=== PATIENT | male | born 1970 | race Caucasian/White ===

== ENCOUNTER 2019-02-01 07:06 | Outpatient (CLI) | payer OTHER ==
[~2019-02-01] VITALS: Ht 177.8 cm; Wt 82.6 kg
[2019-02-01] MEDS ORDERED: LISI-552 PO (09:40)
[2019-02-01] MEDS ORDERED: LISI10TA2 PO (10:11)
[2019-02-01] MEDS ORDERED: ANTIDEPRESSANT (10:11)
[2019-02-01] MEDS ORDERED: CHOLESTEROL MED (10:11)
[2019-02-01] MEDS ORDERED: TRAZ-189 PO (12:22)
[2019-02-01] MEDS ORDERED: LOVA10TA PO (12:22)
[2019-02-01] MEDS ORDERED: ESCI20TA PO (12:22)
== END 2019-02-01 10:23 | disposition home or self-care (01) ==
LOC: PREOP 07:06
PROVIDERS: ATTEND Surgery
DX: Z01.818 Encounter for other preprocedural examination (principal)

== ENCOUNTER 2019-02-04 06:00 | Day surgery (SDC) | payer OTHER ==
[~2019-02-04] VITALS: Ht 177.8 cm; Wt 82.6 kg
[~2019-02-04 06:00] MED LIST: ANTIDEPRESSANT; CHOLESTEROL MED; ESCI20TA PO; LISI-552 PO; LISI10TA2 PO; LOVA10TA PO; TRAZ-189 PO
--- OUTSIDE RECORDS SUMMARY | 2019-02-04 06:02 | XMS REPORT ---
Author Author KAIT PRICE Organization [facility] Address [address] [place] [address] Care Team Providers Care Manager Property Name Role Phone KAIT PRICE Unavailable PROBLEMS Type Condition ICD9-CM Code [id number] Code Onset Dates Condition Status SNOMED Code Problem Hypertension I10 Active 72640692 Problem Dysthymia F34.1 Active 84892772 ALLERGIES No Known Allergies ENCOUNTERS Encounter Location Date Diagnosis [facility] [id number] [place] [phone] Sep, 2018 Hypertension I10 and Dysthymia F34.1 [facility] [address] [phone] Sep, Hypertension I10 and Dysthymia F34.1 [facility] [address] [phone] Dec, Dental examination Z01.20 [facility] [address] [phone] Dec, Dental examination Z01.20 [facility] [id number] [place] [address] [phone] Oct, Dental examination Z01.20 [facility] [address] [place] [address] [phone] Aug, Dental examination Z01.20 [facility] [id number] [place] [address] [phone] Aug, Dental caries K02.9 [facility] [address] [phone] Jul, Dental examination Z01.20 [facility] [address] [phone] Mar, Dental examination Z01.20 [facility] [address] [id number] [place] [phone] Dec, Dental examination Z01.20 [facility] [address] [id number] [place] [phone] Sep, Dental examination Z01.20 [facility] [address] [id number] [place] [phone] Sep, Dental examination Z01.20 [facility] [address] [id number] [place] [phone] Sep, Dental examination Z01.20 [facility] [id number] [place] [address] [phone] Jun, Dental examination Z01.20 [facility] [address] [id number] [place] [phone] May, Encounter for dental examination Z01.20 [facility] [address] [id number] [place] [phone] Apr, Dental examination Z01.20 [facility] [address] [id number] [place] [phone] Mar, Encounter for dental examination Z01.20 [facility] [address] [id number] [place] [phone] Mar, Dental caries K02.9 [facility] [address] [id number] [place] [phone] Mar, Dental examination Z01.20 [facility] [address] [id number] [place] [address] Jan, [facility] [address] [id number] [place] [address] 2546 Dec, Dental examination Z01.20 [facility] [address] [id number] [place] [phone] Apr, Dental examination V72.2 [facility] [address] [id number] [place] [phone] February, Dental examination V72.2 IMMUNIZATIONS No Known Immunizations SOCIAL HISTORY Never Assessed REASON FOR VISIT High blood pressure-david,RMA, pt wants to get his blood pressure meds restarted PLAN OF CARE Activity Details Follow Up 1 Year Reason: VITAL SIGNS Weight 192.9 lbs 2018-10-09 Temperature 97.2 degrees Fahrenheit 2018-10-09 Heart Rate 79 bpm 2018-10-09 Respiratory Rate 18 2018-10-09 Oximetry on room air:95 % 2018-10-09 Blood pressure systolic 150 mmHg 2018-10-09 Blood pressure diastolic 90 mmHg 2018-10-09 MEDICATIONS Medication Instructions Dosage Frequency Start Date End Date Duration Status Escitalopram Oxalate 20 MG Orally Once a day 1 tablet 24h Active Lisinopril 10 MG by oral route Once a day 1 tablet 24h Active Trazodone HCl 50 MG Orally Once a day 1 tablet at bedtime as needed 24h Active RESULTS No Results PROCEDURES No Known procedures INSTRUCTIONS MEDICATIONS ADMINISTERED No Known Medications MEDICAL (GENERAL) HISTORY Type Description Date Medical History chloresterol Medical History high blood pressure Surgical History No Surgical history information
--- OUTSIDE RECORDS SUMMARY | 2019-02-04 06:02 | XMS REPORT ---
Author Author MADDIE BENITEZ Stephen [facility] Address Unknown Care Team Providers Care Labor Relations Manager Name Role Phone MADDIE BENITEZ Unavailable PROBLEMS Unknown Problems ALLERGIES No Known Allergies ENCOUNTERS Encounter Location Date Diagnosis [facility] [id number] [place] [address] [phone] Dec, Dental examination Z01.20 [facility] [address] [place] [address] [phone] Dec, Dental examination Z01.20 [facility] [id number] [place] [address] [phone] Oct, Dental examination Z01.20 [facility] [address] [id number] [place] [address] [phone] Aug, Dental examination Z01.20 [facility] [address] [id number] [place] [address] [phone] Aug, Dental caries K02.9 [facility] [address] [id number] [place] [address] [phone] Jul, Dental examination Z01.20 [facility] [address] [id number] [place] [address] [phone] Mar, Dental examination Z01.20 [facility] [address] [id number] [place] [address] [phone] Dec, Dental examination Z01.20 [facility] [address] [id number] [place] [address] [phone] Sep, Dental examination Z01.20 [facility] [address] [id number] [place] [address] [phone] Sep, Dental examination Z01.20 [facility] [address] [id number] [place] [address] [phone] Sep, Dental examination Z01.20 [facility] [address] [id number] [phone] Jun, Dental examination Z01.20 [facility] [address] [id number], [place] [phone] May, Encounter for dental examination Z01.20 [facility] [address] [id number], [place] [phone] Apr, Dental examination Z01.20 [facility] [address] [id number] [place] [address] [phone] Mar, Encounter for dental examination Z01.20 [facility] [address] [id number] [place] [address] [phone] Mar, Dental caries K02.9 [facility] [id number] [place] [address] [phone] Mar, Dental examination Z01.20 [facility] [id number] [place] [phone] Jan, [facility] [address] [id number] [place] [address] [phone]- [phone] Dec, Dental examination Z01.20 [facility] [address] [id number], [place] [phone] Apr, Dental examination V72.2 [facility] [address] [id number] [phone] February, Dental examination V72.2 IMMUNIZATIONS No Known Immunizations SOCIAL HISTORY Never Assessed REASON FOR VISIT CROWN SEAT PLAN OF CARE Activity Details Follow Up prn Reason:FILLINGS VITAL SIGNS MEDICATIONS Medication Instructions Dosage Frequency Start Date End Date Duration Status Xanax 1 MG Orally Twice a day 1 tablet 12h Not-Taking Gemfibrozil 600 MG Orally Twice a day 1 tablet 12h Active Lexapro Active Lisinopril Active Clindamycin HCl 150 MG Orally every 6 hrs 2 capsules 6h 7 days Not- Taking RESULTS No Results PROCEDURES Procedure Date Ordered Result Body Site Dental no charge January 20, 2018 INSTRUCTIONS MEDICATIONS ADMINISTERED No Known Medications MEDICAL (GENERAL) HISTORY Type Description Date Medical History chloresterol Medical History high blood pressure
--- OUTSIDE RECORDS SUMMARY | 2019-02-04 06:02 | XMS REPORT ---
Author Author KAIT PRICE Organization [facility] Address [address] [place] [address] Care Team Providers Care Student Activities Director Name Role Phone KAIT PRICE Unavailable PROBLEMS Type Condition ICD9-CM Code IWJ31-MP Code Onset Dates Condition Status SNOMED Code Problem Hypertension I10 Active 87295405 Problem Dysthymia F34.1 Active 35496101 ALLERGIES No Information ENCOUNTERS Encounter Location Date Diagnosis [facility] [id number] [place] [phone] Sep, Hypertension I10 and Dysthymia F34.1 [facility] [address] [phone] Sep, Hypertension I10 and Dysthymia F34.1 [facility] [address] [phone] Dec, Dental examination Z01.20 [facility] [address] [phone] Dec, Dental examination Z01.20 [facility] [id number] [place] [address] [phone] Oct, Dental examination Z01.20 [facility] [address] [phone] Aug, Dental examination Z01.20 [facility] [address] [id number] Aug, Dental caries K02.9 [facility] [address] [phone] Jul, Dental examination Z01.20 [facility] [address] [id number] Mar, Dental examination Z01.20 [facility] [address] [id number], [place] [phone] Dec, Dental examination Z01.20 [facility] [address] [id number], [place] [phone] Sep, Dental examination Z01.20 [facility] [address] [id number], [place] [phone] Sep, Dental examination Z01.20 [facility] [address] [id number], [place] [phone] Sep, Dental examination Z01.20 [facility] [address] [id number] [place] [address] [phone] Jun, Dental examination Z01.20 [facility] [address] [id number], [place] [phone] May, Encounter for dental examination Z01.20 [facility] [address] [id number], [place] [phone] Apr, Dental examination Z01.20 [facility] [address] [id number], [place] [phone] Mar, Encounter for dental examination Z01.20 [facility] [address] [id number], [place] [phone] Mar, Dental caries K02.9 [facility] [address] [id number], [place] [phone] Mar, Dental examination Z01.20 [facility] [address] [id number], [place] [address] Jan, [facility] [address] [id number], [place] [address]- [address] Dec, Dental examination Z01.20 [facility] [address] [id number], [place] [phone] Apr, Dental examination V72.2 [facility] [address] [id number], [place] [phone] February, Dental examination V72.2 IMMUNIZATIONS No Known Immunizations SOCIAL HISTORY Never Assessed REASON FOR VISIT Lab (walk-in) PLAN OF CARE Activity Details Pending Test LIPID PANEL Pending Test CMP VITAL SIGNS MEDICATIONS Unknown Medications RESULTS No Results PROCEDURES Procedure Date Ordered Result Body Site COMPREHEN METABOLIC PANEL Oct 13, 2018 LIPID PANEL Oct 13, 2018 VENIPUNCT, ROUTINE* Oct 13, 2018 INSTRUCTIONS MEDICATIONS ADMINISTERED No Known Medications MEDICAL (GENERAL) HISTORY Type Description Date Medical History chloresterol Medical History high blood pressure Surgical History No Surgical history information
--- OUTSIDE RECORDS SUMMARY | 2019-02-04 06:03 | XMS REPORT ---
Author Author MADDIE BENITEZ Stephen [facility] Address Unknown Care Team Providers Care Senior Stack Engineer Name Role Phone MADDIE BENITEZ Unavailable PROBLEMS Unknown Problems ALLERGIES No Known Allergies ENCOUNTERS Encounter Location Date Diagnosis [facility] [address] [id number] [place] [address] [phone] Dec, Dental examination Z01.20 [facility] [address] [place] [address] [phone] Dec, Dental examination Z01.20 [facility] [address] [id number] [place] [address] [phone] Oct, Dental examination Z01.20 [facility] [address] [id number] [place] [address] [phone] Aug, Dental examination Z01.20 [facility] [address] [id number] [place] [address] [id number] Aug, Dental caries K02.9 [facility] [address] [id number] [place] [address] [phone] Jul, Dental examination Z01.20 [facility] [address] [id number] [place] [address] [phone] Mar, Dental examination Z01.20 [facility] [address] [id number] [place] [address] [phone] Dec, Dental examination Z01.20 [facility] [address] [id number] [place] [address] [phone] Sep, Dental examination Z01.20 [facility] [address] [id number] [place] [address] [phone] Sep, Dental examination Z01.20 [facility] [address] [id number] [place] [address] [id number] Sep, Dental examination Z01.20 [facility] [address] [id number][place] [phone] Jun, Dental examination Z01.20 [facility] [address] [id number], [place] [phone] May, Encounter for dental examination Z01.20 [facility] [address] [id number], [place] [phone] Apr, Dental examination Z01.20 [facility] [address] [id number] [place] [address] [phone] Mar, Encounter for dental examination Z01.20 [facility] [address] [id number] [place] [address] [phone] Mar, Dental caries K02.9 [facility] [id number] [place] [address] [phone] Mar, Dental examination Z01.20 [facility] [address] [place] [phone] Jan, [facility] [address] [place] [address] [phone] Dec, Dental examination Z01.20 [facility] [address] [id number], [place] [phone] Apr, Dental examination V72.2 [facility] [address] [id number] [phone] February, Dental examination V72.2 IMMUNIZATIONS No Known Immunizations SOCIAL HISTORY Never Assessed REASON FOR VISIT 1 WK TE PLAN OF CARE Activity Details Follow Up prn Reason:Hoahaoism # 19 VITAL SIGNS Blood pressure systolic 139 mmHg 2017-08-27 Blood pressure diastolic 85 mmHg 2017-08-27 MEDICATIONS Medication Instructions Dosage Frequency Start Date End Date Duration Status Gemfibrozil 600 MG Orally Twice a day 1 tablet 12h Active Lisinopril Active Lexapro Active RESULTS No Results PROCEDURES Procedure Date Ordered Result Body Site EXTRAC ERUPTED TOOTH/EXPOSED ROOT Aug 27, 2017 INSTRUCTIONS MEDICATIONS ADMINISTERED No Known Medications MEDICAL (GENERAL) HISTORY Type Description Date Medical History chloresterol Medical History high blood pressure
--- OUTSIDE RECORDS SUMMARY | 2019-02-04 06:03 | XMS REPORT ---
Author Author MADDIE BENITEZ [facility] Address Unknown Care Team Providers Care Salmon Gillnet Vessel Operator Name Role Phone MADDIE BENITEZ Unavailable PROBLEMS Type Condition ICD9-CM Code VKP62-QI Code Onset Dates Condition Status SNOMED Code Problem Encounter for dental examination Z01.20 Active 810590306 ALLERGIES Substance Reaction Event Type Date Status N.K.D.A. Unknown Non Drug Allergy Sep, Unknown SOCIAL HISTORY No smoking Hx information available PLAN OF CARE Activity Details Follow Up prn Reason:hygiene VITAL SIGNS Heart Rate 89 bpm 2016-10-16 Blood pressure systolic 164 mmHg 2016-10-16 Blood pressure diastolic 112 mmHg 2016-10-16 MEDICATIONS Unknown Medications RESULTS No Results PROCEDURES Procedure Date Ordered Related Diagnosis Body Site LTD ORAL EVALUATION - PROBLEM FOCUS Oct 16, 2016 INTRAORL-PERIAPICAL 1 FILM [id number] Oct 16, 2016 IMMUNIZATIONS No Known Immunizations
--- OUTSIDE RECORDS SUMMARY | 2019-02-04 06:03 | XMS REPORT ---
Author Author PARAMJIT WOOD [facility] Address [address] [place] [address] Care Team Providers Care Calendering Supervisor Name Role Phone ISRAEL PARAMJIT Unavailable PROBLEMS Type Condition ICD9-CM Code HFG13-EF Code Onset Dates Condition Status SNOMED Code Problem Encounter for dental examination Z01.20 Active 043365064 Assessment Encounter for dental examination Z01.20 May, Active 302945766 ALLERGIES Substance Reaction Event Type Date Status N.K.D.A. Unknown Non Drug Allergy May, Unknown SOCIAL HISTORY No smoking Hx information available PLAN OF CARE VITAL SIGNS Heart Rate 116 bpm 2016-06-24 Blood pressure systolic 120 mmHg 2016-06-24 Blood pressure diastolic 78 mmHg 2016-06-24 MEDICATIONS Medication Instructions Dosage Frequency Start Date End Date Duration Status Gemfibrozil 600 MG Orally Twice a day 1 tablet 12h Active Xanax 1 MG Orally Twice a day 1 tablet 12h Active RESULTS No Results PROCEDURES Procedure Date Ordered Related Diagnosis Body Site Periodontal scaling and root Jun 24, 2016 Periodontal scaling and root Jun 24, 2016 IMMUNIZATIONS No Known Immunizations
--- OUTSIDE RECORDS SUMMARY | 2019-02-04 06:03 | XMS REPORT ---
Author Author MADDIE BENITEZ Stephen [facility] Address Unknown Care Team Providers Care Market Risk Analyst Name Role Phone MADDIE BENITEZ Unavailable PROBLEMS Unknown Problems ALLERGIES No Known Allergies ENCOUNTERS Encounter Location Date Diagnosis [facility] [id number] [place] [address] [phone] Dec, Dental examination Z01.20 [facility] [address] [place] [address] [phone] Dec, Dental examination Z01.20 [facility] [address] [id number] [place] [address] [phone] Oct, Dental examination Z01.20 [facility] [address] [id number] [place] [address] [phone] Aug, Dental examination Z01.20 [facility] [address] [id number] [place] [address] [phone] Aug, Dental caries K02.9 [facility] [address] [id number] [place] [address] [id number] Jul, Dental examination Z01.20 [facility] [address] [id number] [place] [address] [phone] Mar, Dental examination Z01.20 [facility] [address] [id number] [place] [address] [phone] Dec, Dental examination Z01.20 [facility] [address] [id number] [place] [address] [phone] Sep, Dental examination Z01.20 [facility] [address] [id number] [place] [address] [phone] Sep, Dental examination Z01.20 [facility] [address] [id number] [place] [address] [phone] Sep, Dental examination Z01.20 [facility] [address] [id number], [place] [phone] Jun, Dental examination Z01.20 [facility] [address] [id number], [place] [phone] May, Encounter for dental examination Z01.20 [facility] [address] [id number], [place] [phone] Apr, Dental examination Z01.20 [facility] [address] [id number], [place] [phone] Mar, Encounter for dental examination Z01.20 [facility] [address] [id number] [place] [address] [phone] Mar, Dental caries K02.9 [facility] [address] [id number] [place] [address] [phone] Mar, Dental examination Z01.20 [facility] [address] [id number] [place] [address] [phone] Jan, [facility] [address] [id number] [place] [address] [phone] Dec, Dental examination Z01.20 [facility] [address] [id number], [place] [phone] Apr, Dental examination V72.2 [facility] [address] [id number], [place] [phone] February, Dental examination V72.2 IMMUNIZATIONS No Known Immunizations SOCIAL HISTORY Never Assessed REASON FOR VISIT crown prep PLAN OF CARE Activity Details Follow Up 3 Weeks Reason:Seat E-Max crown # 9 VITAL SIGNS Blood pressure systolic 136 mmHg 2017-12-25 Blood pressure diastolic 96 mmHg 2017-12-25 MEDICATIONS Medication Instructions Dosage Frequency Start Date End Date Duration Status Clindamycin HCl 150 MG Orally every 6 hrs 2 capsules 6h 7 days Not- Taking Gemfibrozil 600 MG Orally Twice a day 1 tablet 12h Active Lexapro Active Lisinopril Active Xanax 1 MG Orally Twice a day 1 tablet 12h Not-Taking RESULTS No Results PROCEDURES Procedure Date Ordered Result Body Site CROWN - PORCELAIN/CERAMIC SUBSTRATE December 25, 2017 Billing Notes on claim December 25, 2017 INSTRUCTIONS MEDICATIONS ADMINISTERED No Known Medications MEDICAL (GENERAL) HISTORY Type Description Date Medical History chloresterol Medical History high blood pressure
--- OUTSIDE RECORDS SUMMARY | 2019-02-04 06:03 | XMS REPORT ---
Author Author MADDIE BENITEZ Stephen [facility] Address Unknown Care Team Providers Care Black Top Raker Name Role Phone MADDIE BENITEZ Unavailable PROBLEMS Unknown Problems ALLERGIES No Known Allergies ENCOUNTERS Encounter Location Date Diagnosis [facility] [id number] [place] [address] [phone] Dec, Dental examination Z01.20 [facility] [address] [place] [address] [phone] Dec, Dental examination Z01.20 [facility] [address] [id number] [place] [address] [phone] Oct, Dental examination Z01.20 [facility] [address] [id number] [place] [address] [phone] Aug, Dental examination Z01.20 [facility] [address] [id number] [place] [address] [phone] Aug, Dental caries K02.9 [facility] [address] [id number] [place] [address] [phone] Jul, Dental examination Z01.20 [facility] [id number] [place] [address] [phone] Mar, Dental examination Z01.20 [facility] [id number] [place] [address] [phone] Dec, Dental examination Z01.20 [facility] [address] [id number] [place] [address] [phone] Sep, Dental examination Z01.20 [facility] [address] [id number] [place] [address] [phone] Sep, Dental examination Z01.20 [facility] [address] [id number] [place] [address] [phone] Sep, Dental examination Z01.20 [facility] [address] [id number][place] [phone] Jun, Dental examination Z01.20 [facility] [address] [id number], [place] [phone] May, Encounter for dental examination Z01.20 [facility] [address] [id number][place] [phone] Apr, Dental examination Z01.20 [facility] [id number] [place] [address] [phone] Mar, Encounter for dental examination Z01.20 [facility] [address] [id number] [place] [address] [phone] Mar, Dental caries K02.9 [facility] [id number] [place] [address] [phone] Mar, Dental examination Z01.20 [facility] [id number] [place] [phone] Jan, [facility] [address] [id number] [place] [phone] Dec, Dental examination Z01.20 [facility] [address] [id number], [place] [phone] Apr, Dental examination V72.2 [facility] [address] [id number] [phone] February, Dental examination V72.2 IMMUNIZATIONS No Known Immunizations SOCIAL HISTORY Never Assessed REASON FOR VISIT olivia PLAN OF CARE Activity Details Follow Up 1 Week Reason:45 min TE #19 VITAL SIGNS Blood pressure systolic 147 mmHg 2017-08-19 Blood pressure diastolic 101 mmHg 2017-08-19 MEDICATIONS Medication Instructions Dosage Frequency Start Date End Date Duration Status Gemfibrozil 600 MG Orally Twice a day 1 tablet 12h Active RESULTS No Results PROCEDURES Procedure Date Ordered Result Body Site LTD ORAL EVALUATION - PROBLEM FOCUS Aug 19, 2017 INTRAORL-PERIAPICAL 1 FILM 39376 Aug 19, 2017 BITEWING - SINGLE FILM Aug 19, 2017 INSTRUCTIONS MEDICATIONS ADMINISTERED No Known Medications MEDICAL (GENERAL) HISTORY Type Description Date Medical History chloresterol Medical History high blood pressure
--- OUTSIDE RECORDS SUMMARY | 2019-02-04 06:03 | XMS REPORT ---
Author Author MADDIE BENITEZ [facility] Address Unknown Care Team Providers Care Crown Wheel Assembler Name Role Phone EMMANUEL MADDIE Unavailable PROBLEMS Type Condition ICD9-CM Code VTZ48-IP Code Onset Dates Condition Status SNOMED Code Problem Encounter for dental examination Z01.20 Active 044847490 ALLERGIES Substance Reaction Event Type Date Status N.K.D.A. Unknown Non Drug Allergy Sep, Unknown SOCIAL HISTORY No smoking Hx information available PLAN OF CARE Activity Details Follow Up prn Reason:prophy VITAL SIGNS Blood pressure systolic 121 mmHg 2016-10-24 Blood pressure diastolic 76 mmHg 2016-10-24 MEDICATIONS Medication Instructions Dosage Frequency Start Date End Date Duration Status Gemfibrozil 600 MG Orally Twice a day 1 tablet 12h Active Xanax 1 MG Orally Twice a day 1 tablet 12h Active Clindamycin HCl 150 MG Orally every 6 hrs 2 capsules 6h 7 days Active RESULTS No Results PROCEDURES Procedure Date Ordered Related Diagnosis Body Site INTRAORL-PERIAPICAL 1 FILM 69338 Oct 24, 2016 BITEWING - SINGLE FILM Oct 24, 2016 IMMUNIZATIONS No Known Immunizations
--- OUTSIDE RECORDS SUMMARY | 2019-02-04 06:03 | XMS REPORT ---
Author ROMULO Willis [employer] Address Unknown Phone Unavailable Care Team Providers Care Valuation Consultant Name Role Phone ROMULO BRAUN CP Unavailable Allergies, Adverse Reactions, Alerts Substance Reaction Event Type N.K.D.A. Info Not Available Non Drug Allergy Problems Problem Type Condition Code Onset Dates Condition Status Assessment Dental examination Z01.20 Active Medications Medication Code System Code Instructions Start Date End Date Status Dosage Gemfibrozil [facility] [address]-26 600 MG Orally Twice a day 1 tablet Amoxicillin [facility] [address]-92 500 MG Orally Four times a day January 22, 2016 January 29, 2016 1 capsule Xanax [facility] [address]-19 1 MG Orally Twice a day 1 tablet Procedures Procedure Coding System Code Date INTRAORL-PERIAPICAL 1 FILM 09601 CPT-4 D0220 January 22, 2016 Billing Notes on claim CPT-4 EC109 January 22, 2016 LTD ORAL EVALUATION - PROBLEM FOCUS CPT-4 D0140 January 22, 2016 Vital Signs Date/Time: January 22, 2016 Blood Pressure Diastolic 96 mmHg Blood Pressure Systolic 136 mmHg Results No Known Results Summary Purpose [employer] Submission
--- OUTSIDE RECORDS SUMMARY | 2019-02-04 06:03 | XMS REPORT ---
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 Info Not Available Non Drug Allergy Problems Problem Type Condition Code Onset Dates Condition Status Assessment Dental examination Z01.20 Active Problem Encounter for dental examination Z01.20 Active Medications Medication Code System Code Instructions Start Date End Date Status Dosage Xanax [facility] [address]-83 1 MG Orally Twice a day 1 tablet Gemfibrozil [facility] [address]-40 600 MG Orally Twice a day 1 tablet Procedures Procedure Coding System Code Date RESIN COMPOS - 1 SURFACE POSTERIOR CPT-4 D2391 Jul 26, 2016 Vital Signs Date/Time: Jul 26, 2016 Blood Pressure Diastolic 93 mmHg Blood Pressure Systolic 133 mmHg Results No Known Results Summary Purpose [employer] Submission
--- OUTSIDE RECORDS SUMMARY | 2019-02-04 06:03 | XMS REPORT ---
Author Author SHERYL HOUSE Organization [facility] Address [address] [place] [address] Care Team Providers Care Timber Selector Name Role Phone LACY, SHERYL Unavailable PROBLEMS Unknown Problems ALLERGIES No Information ENCOUNTERS Encounter Location Date Diagnosis [facility] [id number] [place] [address] [phone] Dec, Dental examination Z01.20 [facility] [address] [id number] [place] [address] [phone] Dec, Dental examination Z01.20 [facility] [address] [id number] [place] [address] [phone] Oct, Dental examination Z01.20 [facility] [id number] [place] [address] [phone] Aug, Dental examination Z01.20 [facility] [id number] [place] [address] [phone] Aug, Dental caries K02.9 [facility] [id number] [place] [address] [phone] Jul, Dental examination Z01.20 [facility] [address] [id number] [place] [address] [phone] Mar, Dental examination Z01.20 [facility] [address] [id number] [place] [address] [phone] Dec, Dental examination Z01.20 [facility] [id number] [place] [address] [phone] Sep, Dental examination Z01.20 [facility] [address] [id number] [place] [address] [phone] Sep, Dental examination Z01.20 [facility] [address] [id number] [phone] Sep, Dental examination Z01.20 [facility] [address] [id number][place] [phone] Jun, Dental examination Z01.20 [facility] [address] [id number][place] [phone] May, Encounter for dental examination Z01.20 [facility] [address] [id number][place] [phone] Apr, Dental examination Z01.20 [facility] [address] [id number][place] [phone] Mar, Encounter for dental examination Z01.20 [facility] [address] [id number], [place] [phone] Mar, Dental caries K02.9 [facility] [address] [id number][place] [phone] Mar, Dental examination Z01.20 [facility] [address] [address] Jan, [facility] [address] [id number] [address] Dec, Dental examination Z01.20 [facility] [address] [id number], [place] [phone] Apr, Dental examination V72.2 [facility] [address] [id number], [place] [phone] February, Dental examination V72.2 IMMUNIZATIONS No Known Immunizations SOCIAL HISTORY Never Assessed REASON FOR VISIT Refill request PLAN OF CARE VITAL SIGNS MEDICATIONS No Known Medications RESULTS No Results PROCEDURES No Known procedures INSTRUCTIONS MEDICATIONS ADMINISTERED No Known Medications MEDICAL (GENERAL) HISTORY Type Description Date Medical History chloresterol Medical History high blood pressure
--- OUTSIDE RECORDS SUMMARY | 2019-02-04 06:03 | XMS REPORT ---
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
--- OUTSIDE RECORDS SUMMARY | 2019-02-04 06:03 | XMS REPORT ---
Author Author MADDIE BENITEZ [facility] Address Unknown Care Team Providers Care Striker Out Name Role Phone JARONDAGO MADDIE Unavailable PROBLEMS Type Condition ICD9-CM Code WLU11-[place] Code Onset Dates Condition Status SNOMED Code Problem Encounter for dental examination Z01.20 Active [id number] ALLERGIES Substance Reaction Event Type Date Status N.K.D.A. Unknown Non Drug Allergy Sep, Unknown SOCIAL HISTORY No smoking Hx information available PLAN OF CARE Activity Details Follow Up 1 Week Reason:re-eval #2 VITAL SIGNS Blood pressure systolic 144 mmHg 2016-10-08 Blood pressure diastolic 99 mmHg 2016-10-08 MEDICATIONS Medication Instructions Dosage Frequency Start Date End Date Duration Status Clindamycin HCl 150 MG Orally every 6 hrs 2 capsules 6h 7 days Active Xanax 1 MG Orally Twice a day 1 tablet 12h Active Gemfibrozil 600 MG Orally Twice a day 1 tablet 12h Active RESULTS No Results PROCEDURES Procedure Date Ordered Related Diagnosis Body Site LTD ORAL EVALUATION - PROBLEM FOCUS Oct 08, 2016 INTRAORL-PERIAPICAL 1 FILM 29637 Oct 08, 2016 IMMUNIZATIONS No Known Immunizations
--- OUTSIDE RECORDS SUMMARY | 2019-02-04 06:03 | XMS REPORT ---
Author Author MADDIE BENITEZ Stephen [facility] Address Unknown Care Team Providers Care Singe Machine Operator Name Role Phone MADDIE BENITEZ Unavailable PROBLEMS Unknown Problems ALLERGIES No Known Allergies ENCOUNTERS Encounter Location Date Diagnosis [facility] [id number] [place] [address] [phone] Dec, Dental examination Z01.20 [facility] [address] [place] [address] [phone] Dec, Dental examination Z01.20 [facility] [address] [id number] [place] [address] [phone] Oct, Dental examination Z01.20 [facility] [address] [id number] [place] [address] [phone] Aug, Dental examination Z01.20 [facility] [address] [id number] [place] [address] [phone] Aug, Dental caries K02.9 [facility] [address] [id number] [place] [address] [phone] Jul, Dental examination Z01.20 [facility] [address] [id number] [place] [address] [phone] Mar, Dental examination Z01.20 [facility] [address] [id number] [place] [address] [phone] Dec, Dental examination Z01.20 [facility] [address] [id number] [place] [address] [phone] Sep, Dental examination Z01.20 [facility] [address] [id number] [place] [address] [phone] Sep, Dental examination Z01.20 [facility] [address] [id number] [place] [address] [phone] Sep, Dental examination Z01.20 [facility] [address] [id number] [phone] Jun, Dental examination Z01.20 [facility] [address] [id number], [place] [phone] May, Encounter for dental examination Z01.20 [facility] [address] [id number], [place] [phone] Apr, Dental examination Z01.20 [facility] [address] [id number] [place] [address] [phone] Mar, Encounter for dental examination Z01.20 [facility] [address] [id number] [place] [address] [phone] Mar, Dental caries K02.9 [facility] [address] [id number] [place] [address] [phone] Mar, Dental examination Z01.20 [facility] [id number] [place] [phone] Jan, [facility] [address] [id number] [place] [address] [phone] Dec, Dental examination Z01.20 [facility] [address] [id number], [place] [phone] Apr, Dental examination V72.2 [facility] [address] [id number], [place] [phone] February, Dental examination V72.2 IMMUNIZATIONS No Known Immunizations SOCIAL HISTORY Never Assessed REASON FOR VISIT [place] PLAN OF CARE VITAL SIGNS Blood pressure systolic 123 mmHg 2017-09-23 Blood pressure diastolic 92 mmHg 2017-09-23 MEDICATIONS Medication Instructions Dosage Frequency Start Date [...] Site LTD ORAL EVALUATION - PROBLEM FOCUS Sep 23, 2017 INTRAORL-PERIAPICAL 1 FILM 47762 Sep 23, 2017 INSTRUCTIONS MEDICATIONS ADMINISTERED No Known Medications MEDICAL (GENERAL) HISTORY Type Description Date Medical History chloresterol Medical History high blood pressure
--- OUTSIDE RECORDS SUMMARY | 2019-02-04 06:04 | XMS REPORT ---
Author Author PARAMJIT WOOD Organization [facility] Address [address] [place] [address] Care Team Providers Care Crusher Tender Name Role Phone PARAMJIT WOOD Unavailable PROBLEMS Unknown Problems ALLERGIES No Information ENCOUNTERS Encounter Location Date Diagnosis [facility] [id number] [place] [address] [phone] Dec, Dental examination Z01.20 [facility] [address] [id number] [place] [address] [phone] Dec, Dental examination Z01.20 [facility] [address] [id number] [place] [address] [phone] Oct, Dental examination Z01.20 [facility] [address] [id number] [place] [address] [phone] Aug, Dental examination Z01.20 [facility] [address] [id number] [place] [address] [phone] Aug, Dental caries K02.9 [facility] [address] [id number] [place] [address] [phone] Jul, Dental examination Z01.20 [facility] [address] [id number] [place] [address] [phone] Mar, Dental examination Z01.20 [facility] [address] [id number] [place] [address] [phone] Dec, Dental examination Z01.20 [facility] [address] [id number] [place] [address] [id number] Sep, Dental examination Z01.20 [facility] [id number] [place] [address] [phone] Sep, Dental examination Z01.20 [facility] [address] [id number], [place] [phone] Sep, Dental examination Z01.20 [facility] [address] [id number], [place] [phone] Jun, Dental examination Z01.20 [facility] [address] [id number], [place] [phone] May, Encounter for dental examination Z01.20 [facility] [address] [id number], [place] [phone] Apr, Dental examination Z01.20 [facility] [id number] [place] [address] [id number] Mar, Encounter for dental examination Z01.20 [facility] [address] [id number], [place] [phone] Mar, Dental caries K02.9 [facility] [address] [id number], [place] [phone] Mar, Dental examination Z01.20 [facility] [address] [id number], [place] [address] Jan, [facility] [address] [id number] [place] [phone] Dec, Dental examination Z01.20 [facility] [address] [id number], [place] [phone] Apr, Dental examination V72.2 [facility] [address] [id number], [place] [phone] February, Dental examination V72.2 IMMUNIZATIONS No Known Immunizations SOCIAL HISTORY Never Assessed REASON FOR VISIT 4 month recall PLAN OF CARE VITAL SIGNS MEDICATIONS No Known Medications RESULTS No Results PROCEDURES Procedure Date Ordered Result Body Site Billing Notes on claim April 25, 2017 INSTRUCTIONS MEDICATIONS ADMINISTERED No Known Medications MEDICAL (GENERAL) HISTORY Type Description Date Medical History chloresterol Medical History high blood pressure
[2019-02-04 06:15] VITALS: BP 151/98
[2019-02-04] MEDS ORDERED: LACTATED RINGERS 1,000 ML IV PRN (06:42)
[2019-02-04] MEDS ORDERED: ceFAZolin INJECTION 1,000 MG in WATER (STERILE) FOR INJECTION 10 ML IV ONE (06:45)
[2019-02-04] MEDS ORDERED: proPOfol 200 MG/20 ML (DIPRIVAN) VIAL IV ONE (06:56)
[2019-02-04] MEDS ORDERED: ONDANSETRON 4 MG/2 ML (SDV) Z0FRAN ONE (06:56)
[2019-02-04] MEDS ORDERED: DEXAMETHASONE 10 MG/ML (DECADRON) 1 ML VIAL ONE (06:56)
[2019-02-04] MEDS ORDERED: LIDOCAINE PF 2% 5 ML (XYLOCAINE) VIAL ONE (06:56)
[2019-02-04] MEDS ORDERED: MIDAZOLAM 2 MG/2 ML (VERSED) VIAL ONE (06:57)
[2019-02-04] MEDS ORDERED: SEVOFLURANE (ULTANE) 15 ML INHAL SOLN ONE ×2 (06:57→08:11)
[2019-02-04] MEDS ORDERED: fentaNYL INJECTION 100 MCG/2 ML AMP ONE (06:57)
[2019-02-04] MEDS ORDERED: CATHETER FLUSH 10 ML SYR IV PRN (07:00)
[2019-02-04] MEDS ORDERED: LIDOCAINE/EPI 1%-1:100,000 (XYLOCAINE) 20ML ONE (07:26)
[2019-02-04] MEDS ORDERED: BUPIVACAINE 0.5% 30 ML (SENSORCAINE) VIAL ONE (07:26)
--- NOTE | 2019-02-04 07:37 | Progress Note-Pre Operative ---
Pre-Operative Progress Note H&P Reviewed The H&P was reviewed, patient examined and no changes noted. Date Seen by Provider: Feb 04, 2019 Time Seen by Provider: 07:30 Date H&P Reviewed: Feb 04, 2019 Time H&P Reviewed: 07:30 Pre-Operative Diagnosis: skin lesion right posterior neck MELVA VIRGEN DO Feb 04, 2019 07:37
--- NOTE | 2019-02-04 08:17 | Progress Note-Post Operative ---
Post-Operative Progess Note Surgeon (s)/Coffee Supervisor (s) Surgeon MELVA VIRGEN DO Coffee Supervisor: NA Pre-Operative Diagnosis skin lesion right posterior neck Post-Operative Diagnosis same Procedure & Operative Findings Date of Procedure 02/04/19 Procedure Performed/Findings excision lesion neck 2.6x5cm Anesthesia Type gen Estimated Blood Loss Estimated blood loss (mL): min Specimens/Packing Specimens Removed lesion neck MELVA VIRGEN DO Feb 04, 2019 08:17
--- NOTE | 2019-02-04 08:19 | Discharge Inst-Simple/Standard ---
Discharge Inst-Standard Patient Instructions/Follow Up Plan of Care/Instructions/FU: 12-14 days Jennifer Activity as Tolerated: Yes Discharge Diet: Regular Diet Other Inst to Patient Follow up Appt: Make appointment for 1 week. Instructions: No strenuous activity. May shower in 24 hours, no tub bath or soaking. Use incentive spirometer at home as directed. No Smoking Skin/Wound Care: May remove bandages in 24 hours. Keep area clean and dry. Symptoms to Report: Appetite Changes, Extremity Discoloration, Numbness/Tingling, Swelling Increased , Bleeding Excessive, Eyesight Changes, Pain Increased, Urine Color Change, Constipation(Persistent), Fever over 101 degree F, Pain/Pressure in chest, Urinating Difficulty, Cough Up/Vomit Blood, Heart Beat Irreg/Pounding, Pain/ Pressure in jaw, Vaginal Bleeding Increase, Cramps in feet or legs, Lightheadedness, Pain/Pressure in shoulder, Diarrhea(Persistent), Memory Changes Suddenly, Questions/Concerns, Weight gain consecutive days, Dizziness/ Fainting, Nausea/Vomiting, Shortness of Breath, Weight gain over 2 pounds If questions or concerns contact your physician Or seek help at emergency department. MELVA VIRGEN DO Feb 04, 2019 08:19
[2019-02-04] MEDS ORDERED: HYDROmorphone 2 MG/ML VIAL (DILAUDID) IV ONE (08:30)
[2019-02-04] MEDS ORDERED: ONDANSETRON 4 MG/2 ML (SDV) Z0FRAN IVP PRN (08:30)
[2019-02-04 09:20] VITALS: BP 142/94
[2019-02-04 09:50] VITALS: BP 152/91
[2019-02-04 10:00] VITALS: BP 152/91
--- NOTE | 2019-02-04 12:56 | Anesthesia-General Post-Op ---
General Patient Condition Mental Status/LOC: Same as Preop Cardiovascular: Satisfactory Nausea/Vomiting: Absent Respiratory: Satisfactory Pain: Controlled Complications: Absent Post Op Complications Complications None Follow Up Care/Instructions Patient Instructions None needed. Anesthesia/Patient Condition Patient Condition Patient is doing well, no complaints, stable vital signs, no apparent adverse anesthesia problems. No complications reported per nursing. NAVDEEP CROFT CRNA Feb 04, 2019 12:56
--- NOTE | 2019-02-05 06:24 | OPERATIVE REPORT ---
DATE OF SERVICE: 02/04/2019 PREOPERATIVE DIAGNOSIS: Lesion, right posterior neck. POSTOPERATIVE DIAGNOSIS: Lesion, right posterior neck. PROCEDURE: Excision lesion 2.6 x 5 cm. SURGEON: Melva Rodriguez DO. ANESTHESIA: General. ESTIMATED BLOOD LOSS: Minimal. COMPLICATIONS: None. INDICATIONS: The patient is a 48-year-old male with a lesion on the right posterior neck. It has continued to increase in size. He wishes to have it removed. He understands risks and benefits and wished to proceed. Consent was signed in the chart. DESCRIPTION OF PROCEDURE: The patient was taken to the operating suite, placed in left lateral recumbent position. Timeout was performed. Local anesthetic was infiltrated around the neck. An elliptical incision measuring 2.6 x 5 cm was made around the lesion and skin and subcutaneous tissue was removed. Once removed, specimen was labeled short suture superior and long suture posterior. Hemostasis was then achieved. The skin was then closed using a 3-0 Prolene in a simple running fashion. The patient tolerated procedure well without complications. He was taken to recovery room in stable condition. Job ID: [id number] DocumentID: [id number] Dictated Date: 02/04/2019 20:58:03 Animated Cartoons Painter Date: 02/05/2019 05:52:34 Dictated By: MELVA RODRIGUEZ DO
== END 2019-02-04 10:30 | disposition home or self-care (01) ==
LOC: SDC 06:00
PROVIDERS: ATTEND Surgery
DX: C44.41 Basal cell carcinoma of skin of scalp and neck (principal); I10 Essential (primary) hypertension; E78.5 Hyperlipidemia, unspecified; F41.9 Anxiety disorder, unspecified; F32.9 Major depressive disorder, single episode, unspecified; Z79.899 Other long term (current) drug therapy
CPT/HCPCS: 87081; 88305

== ENCOUNTER 2019-04-13 05:37 | Outpatient (CLI) | payer OTHER ==
[~2019-04-13] VITALS: Ht 177.8 cm; Wt 82.6 kg
[~2019-04-13 05:37] MED LIST changes: -TRAZ-189 PO; +TRAZ-222 PO
== END 2019-04-13 11:46 | disposition home or self-care (01) ==
LOC: PREOP 05:37
PROVIDERS: ATTEND Surgery
DX: Z01.818 Encounter for other preprocedural examination (principal)

== ENCOUNTER 2019-04-20 07:05 | Day surgery (SDC) | payer OTHER ==
[~2019-04-20] VITALS: Ht 177.8 cm; Wt 82.6 kg
[2019-04-20] MEDS ORDERED: LACTATED RINGERS 1,000 ML IV STA (07:08)
[2019-04-20] MEDS ORDERED: proPOfol 200 MG/20 ML (DIPRIVAN) VIAL IV ONE ×2 (07:19→08:37)
[2019-04-20] MEDS ORDERED: MIDAZOLAM 2 MG/2 ML (VERSED) VIAL ONE (07:20)
[2019-04-20 07:32] VITALS: BP 140/94
--- NOTE | 2019-04-20 08:13 | Progress Note-Pre Operative ---
Pre-Operative Progress Note H&P Reviewed The H&P was reviewed, patient examined and no changes noted. Date Seen by Provider: Apr 20, 2019 Time Seen by Provider: 08:12 Date H&P Reviewed: Apr 20, 2019 Time H&P Reviewed: 08:13 Pre-Operative Diagnosis: screening colonoscopy MELVA VIRGEN DO Apr 20, 2019 08:13
[2019-04-20] MEDS ORDERED: fentaNYL INJECTION 100 MCG/2 ML AMP ONE (08:20)
[2019-04-20 08:45] VITALS: BP 161/99
--- NOTE | 2019-04-20 08:45 | Progress Note-Post Operative ---
Post-Operative Progess Note Surgeon (s)/Site Technician (s) Surgeon MELVA VIRGEN DO Site Technician: na Pre-Operative Diagnosis screening colonoscopy Post-Operative Diagnosis colon polyps, minimal diverticulosis Procedure & Operative Findings Date of Procedure 04/20/19 Procedure Performed/Findings colonoscopy c hot bx polypectomy x3 Anesthesia Type per mda Estimated Blood Loss Estimated blood loss (mL): none Specimens/Packing Specimens Removed transverse colon polyps, sigmoid polyp MELVA VIRGEN DO Apr 20, 2019 08:45
--- NOTE | 2019-04-20 08:46 | Discharge Inst-Simple/Standard ---
Discharge Inst-Standard Patient Instructions/Follow Up Plan of Care/Instructions/FU: 2 weeks Jennifer Activity as Tolerated: Yes Discharge Diet: Regular Diet (high fiber) MELVA VIRGEN DO Apr 20, 2019 08:46
[2019-04-20] MEDS ORDERED: ONDANSETRON 4 MG/2 ML (SDV) Z0FRAN IVP ONE (08:50)
[2019-04-20] MEDS ORDERED: ONDANSETRON 4 MG/2 ML (SDV) Z0FRAN ONE (08:57)
--- NOTE | 2019-04-20 09:00 | NUR ---
C/O NAUSEA AND BLOATED FEELING WITH ABDOMINAL PAIN. UNABLE TO PASS FLATUS AT THIS TIME. ZOFRAN 4 MG GIVEN IV PER ORDER. ASSISTED TO LEFT SIDE LYING POSITION.
[2019-04-20 09:35] VITALS: BP 139/98
--- NOTE | 2019-04-20 09:37 | Anesthesia-General Post-Op ---
MAC Patient Condition Mental Status/LOC: Same as Preop Cardiovascular: Satisfactory Nausea/Vomiting: Absent Respiratory: Satisfactory Pain: Controlled Complications: Absent Post Op Complications Complications None Follow Up Care/Instructions Patient Instructions None needed. Anesthesiology Discharge Order Discharge Order Patient is doing well, no complaints, stable vital signs, no apparent adverse anesthesia problems. No complications reported per nursing. PRINCE MILES CRNA Apr 20, 2019 09:37
--- NOTE | 2019-04-20 09:45 | NUR ---
REPORTS NAUSEA "GONE" AND HAS BEEN PASSING A LARGE AMOUNT OF FLATUS. DENIES COMPLAINTS. TAKING PO FLUIDS WITHOUT PROBLEM, STATES HE IS READY FOR DISMISSAL.
[2019-04-20 10:00] VITALS: BP 139/98
--- NOTE | 2019-04-20 13:10 | OPERATIVE REPORT ---
DATE OF SERVICE: 04/20/2019 PREOPERATIVE DIAGNOSIS: Screening colonoscopy. POSTOPERATIVE DIAGNOSIS: Colon polyps. Minimal diverticulosis. PROCEDURE: Colonoscopy with hot biopsy polypectomy x3. SURGEON: Melva Rodriguez DO ANESTHESIA: Per MDA. ESTIMATED BLOOD LOSS: None. COMPLICATIONS: None. INDICATIONS: The patient is a 48-year-old male needing screening colonoscopy. He understands risks and benefits of procedure and wished to proceed with procedure. Consent was signed in the chart. PROCEDURE: The patient was taken to the endoscopy suite, placed in left lateral recumbent position. Timeout was performed. Digital rectal exam was performed. There were no palpable polyps, masses or ulcerations. Scope was inserted in the rectum and advanced all the way to the cecum with minimal difficulty. Prep was adequate. There were no polyps, masses or ulcerations in the cecum, ascending colon. In the transverse colon, two small polyps were present, which hot biopsy polypectomy was performed on these. Scope was continuously slowly retracted back. No other polyps, masses or ulcerations within the transverse colon. In the descending colon, no polyps, mass or ulcerations. In the sigmoid colon, a small polyp was present, which hot biopsy polypectomy was performed. A minimal amount of diverticulosis through the sigmoid. Scope was continued to be slowly retracted back in the rectum, it was also retroflexed noting no other pathology. Scope was returned to its normal position, slowly withdrawn until completely removed. The patient tolerated procedure well without any complications, taken to recovery room in stable condition. RECOMMENDATIONS: The patient will need repeat colonoscopy in 5 years. He will follow up in the office in 2 weeks to discuss pathology results and see how he is doing. Recommended high fiber diet. Job ID: [id number] DocumentID: [id number] Dictated Date: 04/20/2019 08:48:46 Maintenance Service Dispatcher Date: 04/20/2019 13:10:12 Dictated By: MELVA RODRIGUEZ DO
== END 2019-04-20 10:00 | disposition home or self-care (01) ==
LOC: ENDO 07:05
PROVIDERS: ATTEND Surgery
DX: Z12.11 Encounter for screening for malignant neoplasm of colon (principal); D12.3 Benign neoplasm of transverse colon; D12.5 Benign neoplasm of sigmoid colon; K57.30 Diverticulosis of large intestine without perforation or abscess without bleeding; I10 Essential (primary) hypertension; E78.5 Hyperlipidemia, unspecified; F32.9 Major depressive disorder, single episode, unspecified; F41.9 Anxiety disorder, unspecified; Z79.899 Other long term (current) drug therapy

== ENCOUNTER 2021-10-06 07:25 | Inpatient (IN) | payer OTHER ==
[2021-10-06] VITALS (14 sets, daily range): BP systolic 124–163; BP diastolic 59–106
[~2021-10-06] VITALS: Ht 175 cm; Wt 119.6 kg
[~2021-10-06 07:25] MED LIST changes: -LISI-552 PO; -LISI10TA2 PO; +LISI10TA25 PO; +LISI20TA26 PO; -TRAZ-222 PO; +TRZ50T PO
[2021-10-06] MEDS ORDERED: KETOROLAC 30 MG/ML VIAL IVP ONE (08:00)
[2021-10-06] MEDS ORDERED: NS IV 1000 ML 1,000 ML IV SCH (08:00)
[2021-10-06] MEDS ORDERED: lisINopril 20 MG (PRINIVIL) TABLET PO ONE (08:00)
--- NOTE | 2021-10-06 08:02 | ED Dyspnea ---
General Chief Complaint: General Problems/Pain Stated Complaint: DEHYDRATION, VOMITING, DIARRHEA Nursing Triage Note: AMB TO ED WITH C/O NOT FEELING WELL FOR 2 WEEKS. NAUSEA,NOT ABLE TO EAT . VOMITED 5 DAYS AGO. GIVES POOR HX . SAO2 LOW ON ADMIT TO ROOM PLACED ON NC . 0750 NO IMPROVEMENT WITH NC RT CALLED Source of Information: Patient Exam Limitations: No Limitations (BRIAN MAN STUDENT) History of Present Illness Date Seen by Provider: Oct 06, 2021 Time Seen by Provider: 07:45 Initial Comments This is a 51 YO male with history of HTN and HLD who presents to the ED with N/V/D as well as cough and SOB. Pt states he began having the cough 2 weeks ago after his granddaughter had similar symptoms. He then began having nausea and vomiting as well as the SOB. States the vomiting stopped 5 days ago, but nausea persisted and began having diarrhea. States his SOB worsens with exertion and became worse to the point that he came to the ER today. Denies fever, chills, chest pain, or leg pain/swelling. No recent travel or surgeries. Had a negative [facility]. Has not had the COVID or flu vaccines. No personal or family history of blood clots. States he has not taken his medications this morning. Prior Episodes/Possible Cause: Illness Exposure Associated Symptoms: Cough (BRIAN MAN STUDENT) Allergies and Home Medications Allergies Coded Allergies: No Known Drug Allergies (Unverified , 04/13/19) Patient Home Medication List Home Medication List Reviewed: Yes (BRIAN MAN STUDENT) Escitalopram Oxalate (Lexapro) 20 Mg Tablet, 20 MG PO DAILY, (Reported) Entered as Reported by: KANDY ABREU on 02/01/19 1222 Last Action: Converted Lisinopril (Lisinopril) 10 Mg Tablet, 0 PO DAILY, (Reported) Entered as Reported by: KANDY ABREU on 02/01/19 1011 Lovastatin (Lovastatin) 10 Mg Tablet, 0 PO, (Reported) Entered as Reported by: KANDY ABREU on 02/01/19 122 Trazodone HCl (Trazodone HCl) 50 Mg Tablet, 50 MG PO HS, (Reported) Entered as Reported by: KANDY ABREU on 02/01/19 1222 Review of Systems Review of Systems Constitutional: No chills, No fever EENTM: No blurred vision, No double vision Respiratory: cough, dyspnea on exertion; No phlegm Cardiovascular: No chest pain; palpitations Gastrointestinal: diarrhea, nausea, vomiting Genitourinary: no symptoms reported Musculoskeletal: No muscle weakness; neck pain Skin: no symptoms reported Psychiatric/Neurological: Headache; Denies Paresthesia Endocrine: No Symptoms Reported Hematologic/Lymphatic: No Symptoms Reported (BRIAN MAN [employer] STUDENT) All Other Systems Reviewed Negative Unless Noted: Yes (Negative excepted noted.) (BRIAN MAN Vari[employer] STUDENT) Past Elkxfuc-Gvvwaf-Vfuums Hx Patient Social History Tobacco Use?: No Smoking Status: Never a Smoker (BRIAN MAN) Immunizations Up To Date Tetanus Booster (TDap): Unknown (BRIAN MAN) Seasonal Allergies Seasonal Allergies: No (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) Past Medical History Surgeries: Yes (CYST REMOVED FROM NECK) Tonsillectomy Respiratory: No Currently Using CPAP: No Currently Using BIPAP: No Cardiac: Yes High Cholesterol, Hypertension Neurological: No Sexually Transmitted Disease: No HIV/AIDS: No Genitourinary: No Gastrointestinal: No Musculoskeletal: No Endocrine: No HEENT: No Loss of Vision: Denies Hearing Impairment: Denies Cancer: No Psychosocial: Yes Anxiety, Depression Integumentary: No Blood Disorders: No Adverse Reaction/Blood Tranf: No (N/A) (BRIAN MAN STUDENT) Physical Exam Vital Signs Vital Signs - First Documented 10/06/21 10/06/21 07:39 08:13 Temp 37.0 Pulse 100 Resp 18 B/P (MAP) 187/118 (141) Pulse Ox 81 O2 Delivery Room Air O2 Flow Rate 30.00 FiO2 70 (JAVIER ORDONEZ MD) Vital Signs Capillary Refill : Less Than 3 Seconds (BRIAN MAN [employer] STUDENT) Height, Weight, BMI Height: 5'10.00" Weight: 182lbs. 0.0oz. 82.723443vb; 24.00 BMI Method: General Appearance: WD/WN, Other (mild to moderate distress) HEENT: PERRL/EOMI, Normal ENT Inspection, Other (dry mucous membranes) Neck: Normal Inspection, Supple Respiratory: Other (tachypneic, moderate respiratory distress, but able to speak in full sentences; minimal crackles at the bases, no wheezing or stridor) Cardiovascular: No Edema, No Murmur, Tachycardia Peripheral Pulses: 2+ Radial Pulses (R), 2+ Radial Pulses (L) Gastrointestinal: Non Tender, Soft; No Distended Extremity: Normal Inspection, No Calf Tenderness, No Pedal Edema Neurologic/Psychiatric: Alert, Oriented x3, No Motor/Sensory Deficits Skin: Normal Color, Warm/Dry (BRIAN MAN MED STUDENT) Focused Exam Lactate Level 10/06/21 08:01: Lactic Acid Level 1.41 (JAVIER ORDONEZ MD) Lactic Acid Level Laboratory Tests Test 10/06/21 08:01 Lactic Acid Level 1.41 MMOL/L (0.50-2.00) (JAVIER ORDONEZ MD) Progress/Results/Core Measures Results/Orders Lab Results Laboratory Tests Test 10/06/21 07:46 10/06/21 08:01 Range/Units Influenza Type A (RT-PCR) Not Detected Not Detecte Influenza Type B (RT-PCR) Not Detected Not Detecte SARS-CoV-2 RNA (RT-PCR) Detected H Not Detecte White Blood Count 7.7 4.3-11.0 10^3/uL Red Blood Count 5.36 4.30-5.52 10^6/uL Hemoglobin 15.1 13.3-17.7 g/dL Hematocrit 46 40-54 % Mean Corpuscular Volume 86 80-99 fL Mean Corpuscular Hemoglobin 28 25-34 pg Mean Corpuscular Hemoglobin Concent 33 32-36 g/dL Red Cell Distribution Width 13.5 10.0-14.5 % Platelet Count 237 130-400 10^3/uL Mean Platelet Volume 9.9 9.0-12.2 fL Immature Granulocyte % (Auto) 2 % Neutrophils (%) (Auto) 84 H 42-75 % Lymphocytes (%) (Auto) 9 L 12-44 % Monocytes (%) (Auto) 5 0-12 % Eosinophils (%) (Auto) 0 0-10 % Basophils (%) (Auto) 0 0-10 % Neutrophils # (Auto) 6.4 1.8-7.8 10^3/uL Lymphocytes # (Auto) 0.7 L 1.0-4.0 10^3/uL Monocytes # (Auto) 0.4 0.0-1.0 10^3/uL Eosinophils # (Auto) 0.0 0.0-0.3 10^3/uL Basophils # (Auto) 0.0 0.0-0.1 10^3/uL Immature Granulocyte # (Auto) 0.2 H 0.0-0.1 10^3/uL Prothrombin Time 13.1 12.2-14.7 SEC INR Comment 1.0 0.8-1.4 Activated Partial Thromboplast Time 27 24-35 SEC D-Dimer 1.68 H 0.00-0.49 UG/ML Sodium Level 143 135-145 MMOL/L Potassium Level 3.8 3.6-5.0 MMOL/L Chloride Level 105 98-107 MMOL/L Carbon Dioxide Level 23 21-32 MMOL/L Anion Gap 15 H 5-14 MMOL/L Blood Urea Nitrogen 25 H 7-18 MG/DL Creatinine 0.86 0.60-1.30 MG/DL Estimat Glomerular Filtration Rate 93 BUN/Creatinine Ratio 29 Glucose Level 105 70-105 MG/DL Lactic Acid Level 1.41 0.50-2.00 MMOL/L Calcium Level 8.7 8.5-10.1 MG/DL Corrected Calcium 9.0 8.5-10.1 MG/DL Total Bilirubin 0.6 0.1-1.0 MG/DL Aspartate Amino Transf (AST/SGOT) 46 H 5-34 U/L Alanine Aminotransferase (ALT/SGPT) 36 0-55 U/L Alkaline Phosphatase 46 40-136 U/L C-Reactive Protein High Sensitivity 4.37 H 0.00-0.50 MG/DL Total Protein 6.8 6.4-8.2 GM/DL Albumin 3.6 3.2-4.5 GM/DL Procalcitonin 0.06 <0.10 NG/ML (JAVIER ORDONEZ MD) My Orders Orders - JAVIER ORDONEZ MD Cbc With Automated Diff (10/06/21 07:53) Comprehensive Metabolic Panel (10/06/21 07:53) Blood Culture (10/06/21 07:53) Sputum Culture (10/06/21 07:53) Urinalysis (10/06/21 07:53) Urine Culture (10/06/21 07:53) Protime With Inr (10/06/21 07:53) Partial Thromboplastin Time (10/06/21 07:53) Chest 1 View, Ap/Pa Only (10/06/21 07:53) Ed Iv/Invasive Line Start (10/06/21 07:53) Ed Iv/Invasive Line Start (10/06/21 07:53) Vital Signs Adult Sepsis Patie Q15M (10/06/21 07:53) O2 (10/06/21 07:53) Remove Rings In Anticipation O (10/06/21 07:53) Lactic Acid Analyzer (10/06/21 07:53) Fibrin Degradation Products (10/06/21 07:53) Procalcitonin (Pct) (10/06/21 07:53) Hs C Reactive Protein (10/06/21 07:53) Albuterol Inhaler (Albuterol) (10/06/21 10:00) Dexamethasone Injection (Decadron Injec (10/06/21 08:00) Ns Iv 1000 Ml (Sodium Chloride 0.9%) (10/06/21 08:00) Ketorolac Injection (Toradol Injection) (10/06/21 08:00) Lisinopril Tablet (Zestril Tablet) (10/06/21 08:00) Communication For Respiratory (10/06/21 08:03) Covid 19 Inhouse Test (10/06/21 08:05) Influenza A And B By Pcr (10/06/21 08:05) Albuterol Inhaler (Albuterol) (10/06/21 08:21) Ct Angio Chest W (10/06/21 08:56) (JAVIER ORDONEZ MD) Medications Given in ED (JAVIER ORDONEZ MD) Vital Signs/I&O 10/06/21 10/06/21 10/06/21 10/06/21 07:39 08:13 08:37 09:05 Temp 37.0 Pulse 100 86 Resp 18 18 B/P (MAP) 187/118 (141) 156/100 Pulse Ox 81 93 94 O2 Delivery Room Air Vapotherm Vapotherm Nasal Cannula O2 Flow Rate 30.00 3.00 FiO2 70 (JAVIER ORDONEZ MD) Blood Pressure Mean: 141 Admisison Planning May Need Admission (Planning): 08:00 (JAVIER ORDONEZ MD) Progress Progress Note #1: Time: 08:11 Progress Note 51-year-old male presents to the emergency department with his parents chief complaint of increasing shortness of breath, cough, body aches headache, nausea vomiting and diarrhea. Tells us initially that he was seen by [facility] 2 or 3 days ago, tested negative for Covid. Later his father contributes to the history stating that the patient was in fact told that he had pneumonia and was started on an antibiotic however the patient cannot recall what that was when asked. Patient states that he does not and has not ever smoked. He does not work around fumes or smoke. He states his cough is nonproductive. Has had profoundly severe shortness of breath with exertion over the last 24 hours. Takes medication for cholesterol and hypertension although did not take his medicine for hypertension this morning. Denies known sick contacts with Covid. Is not vaccinated. No history of blood clot in family or himself. No recent prolonged immobility or travel. No pain or swelling in his lower extremities. No recent black or bloody stool. Complains that his heart is "racing". Room air sats in the 70s on arrival to the emergency department. Still at 88 to 89% on 12 L per nasal cannula. Patient is noted to have fine rales at the bases bilaterally, moderate respiratory distress. No swelling in his lower extremities. No tenderness in the calves, negative Homans bilaterally. No rashes. Soft nontender abdomen. Dry oral mucosa. Sepsis work-up initiated with Covid and influenza testing. D-dimer pending. Chest x-ray pending. Patient is started on Vapotherm per respiratory therapy. Progress Note #2: Time: 09:17 Progress Note Talk to the patient's family about his current clinical condition, advised that we will be admitting him to the ICU. CT angio chest is pending. He has fairly significant bilateral Covid pneumonia. (JAVIER ORDONEZ MD) Diagnostic Imaging Diagonstic Imaging: Xray, CT Comments [facility]. [place], [place] NAME: REJI MEJIA [facility] REC#: [id number] PT STATUS: ADM IN : 1970 PHYSICIAN: JAVIER ORDONEZ MD ADMIT DATE: 10/06/21/ICU Signed Date of Exam:10/06/21 CT ANGIO CHEST W PROCEDURE: CT angiography of the chest with contrast. TECHNIQUE: Multiple contiguous axial images were obtained through the chest after uneventful bolus administration of intravenous contrast. 3D reconstructed CTA MIP acquisitions were also performed. Auto Exposure Controls were utilized during the CT exam to meet ALARA standards for radiation dose reduction. DATE: October 06, 2021. COMPARISON: Chest radiograph October 06, 2021. INDICATION: 51-year-old male, COVID 19 positive. Shortness of breath. FINDINGS: There is multifocal fairly patchy alveolar consolidation bilaterally including areas of groundglass attenuation and consolidation. There is no pneumothorax. There is pneumomediastinum. There is no pleural effusion. There is no identified central pulmonary embolus. There are limitations for evaluation of segmental and subsegmental pulmonary emboli given the timing the contrast bolus. The heart is not enlarged. There is no pericardial effusion. There is no identified abnormally enlarged mediastinal, hilar, or axillary lymph node meeting CT size criteria for adenopathy. There is a peripherally enhancing lesion in the right lobe of liver on axial image 147 measuring up to approximately 2.0 cm in size. There is an incompletely imaged low-attenuation right renal lesion on axial image 164 which measures 1.4 cm in size with internal attenuation of 15 Hounsfield units. This likely relates to a benign cyst although is not able to be definitively characterized. There is no identified acute bony abnormality. IMPRESSION: CT CHEST. 1. Extensive multifocal bilateral lung consolidation most consistent with COVID 19 infection and multifocal pneumonia/pneumonitis. 2. No identified central pulmonary embolus. 3. Pneumomediastinum. 4. Peripherally enhancing hypervascular lesion in the liver measuring up to 2.0 cm in size. Recommend nonemergent CT abdomen without and with intravenous contrast, liver mass protocol, for further assessment. Dictated by: Dictated on workstation # [id number] Dict: 10/06/21 0959 Trans: 10/06/21 104 CV [id number] Interpreted by: RED HARRIS MD Electronically signed by: RED HARRIS MD 10/06/21 1042 [facility]. [place], [place] NAME: REJI MEJIA [facility] REC#: [id number] PT STATUS: REG ER : 1970 PHYSICIAN: JAVIER ORDONEZ MD ADMIT DATE: 10/06/21/ER Signed Date of Exam:10/06/21 CHEST 1 VIEW, AP/PA ONLY CHEST 1 VIEW, AP/PA ONLY Indication: Hypoxia Comparison: None available. Findings: Bilateral multifocal pulmonary consolidations are present. No pleural effusion or pneumothorax. Normal cardiomediastinal silhouette. Impression: 1. Bilateral multifocal pulmonary consolidations are most compatible with multifocal infection, and are highly likely due to COVID 19. Dictated by: Dictated on workstation # [id number] Dict: 10/06/21913 Trans: 10/06/21920 CV [id number] Interpreted by: ALEENA BARILLAS MD Electronically signed by: ALEENA BARILLAS MD 10/06/21920 (JAVIER ORDONEZ MD) Critical Care Note Critical Care Start Time: 07:45 Stop Time: 09:26 Total Time (minutes) 45 minutes critical care time in the evaluation and management of this patient with respiratory distress and hypoxia. Evaluation today includes initial management of hypoxia with titrating oxygen and transitioning to Vapotherm/high flow oxygen. Evaluation includes review and interpretation of laboratory studies, chest x-ray. Fluid resuscitation with IV fluids, review of the medical record. Discussion with admitting provider. (JAVIER ORDONEZ MD) Departure Communication (Admissions) Time/Spoke to Admitting Phy: 09:[address] Arellano (JAVIER ORDONEZ MD) Impression Primary Impression: Respiratory distress Additional Impressions: Hypoxia Pneumonia due to COVID-19 virus Disposition: ADMITTED INPATIENT Condition: Critical Admissions Decision to Admit Reason: Admit from ER (General) Decision to Admit/Date: Oct 06, 2021 Time/Decision to Admit Time: 08:15 (JAVIER ORDONEZ MD) Departure-Patient Inst. Referrals: KAIT PRICE MD (PCP) Primary Care Physician Verification and Attestation of Medical Student E/M Service A medical student performed and documented this service in my presence. I reviewed and verified all information documented by the medical student and made modifications to such information, when appropriate. I personally performed the physical exam and medical decision making. Javier Ordonez, Oct 07, 2021,06:11 (JAVIER ORDONEZ MD) BRIAN MAN MED STUDENT Oct 06, 2021 08:02 JAVIER ORDONEZ MD Oct 06, 2021 08:15
[2021-10-06 08:10] LABS: BASOPHILS % (AUTO) 0 % (0-10); EOSINOPHILS % (AUTO) 0 % (0-10); HEMATOCRIT 46 % (40-54); HEMOGLOBIN 15.1 g/dL (13.3-17.7); LYMPHOCYTES # (AUTO) 0.7 10^3/uL (1.0-4.0); LYMPHOCYTES % (AUTO) 9 % (12-44); MEAN CORPUSCULAR HEMOGLOBIN 28 pg (25-34); MEAN CORPUSCULAR HGB CONC 33 g/dL (32-36); MEAN CORPUSCULAR VOLUME 86 fL (80-99); MEAN PLATELET VOLUME 9.9 fL (9.0-12.2); MONOCYTES # (AUTO) 0.4 10^3/uL (0.0-1.0); MONOCYTES % (AUTO) 5 % (0-12); NEUTROPHILS # (AUTO) 6.4 10^3/uL (1.8-7.8); NEUTROPHILS % (AUTO) 84 % (42-75); PLATELET COUNT 237 10^3/uL (130-400); WHITE BLOOD COUNT 7.7 10^3/uL (4.3-11.0)
[2021-10-06] MEDS ORDERED: RT-ALBUTEROL HFA 8.5 GM INHALER IH ONE (08:21)
[2021-10-06 08:26] LABS: ALBUMIN 3.6 GM/DL (3.2-4.5); POTASSIUM 3.8 MMOL/L (3.6-5.0)
[2021-10-06 08:28] LABS: CALCIUM 8.7 MG/DL (8.5-10.1)
[2021-10-06 08:29] LABS: TOTAL PROTEIN 6.8 GM/DL (6.4-8.2)
[2021-10-06 08:31] LABS: BILIRUBIN,TOTAL 0.6 MG/DL (0.1-1.0)
[2021-10-06 08:33] LABS: CREATININE SERUM 0.86 MG/DL (0.60-1.30)
[2021-10-06 08:36] LABS: FIBRIN DEGRADATION PRODUCTS 1.68 UG/ML (0.00-0.49); PROTHROMBIN TIME PATIENT 13.1 SEC (12.2-14.7)
--- NOTE | 2021-10-06 09:15 | Diagnostic Imaging Report ---
CHEST 1 VIEW, AP/PA ONLY Indication: Hypoxia Comparison: None available. Findings: Bilateral multifocal pulmonary consolidations are present. No pleural effusion or pneumothorax. Normal cardiomediastinal silhouette. Impression: 1. Bilateral multifocal pulmonary consolidations are most compatible with multifocal infection, and are highly likely due to COVID 19. Dictated by: Dictated on workstation # [id number]
[2021-10-06] MEDS ORDERED: NS 100 ML (IVPB) BAG IV ONE (09:45)
[2021-10-06] MEDS ORDERED: IOHEXOL 350 MG/ML 100 ML (OMNIPAQUE 350) VIAL IV ONE (09:45)
[2021-10-06] MEDS ORDERED: HOLD METFORMIN - RECEIVED CONTRAST 20 ML VIAL IV SCH (09:45)
[2021-10-06] MEDS ORDERED: RT-ALBUTEROL HFA 8.5 GM INHALER IH SCH (10:00)
--- NOTE | 2021-10-06 10:34 | Diagnostic Imaging Report ---
PROCEDURE: CT angiography of the chest with contrast. TECHNIQUE: Multiple contiguous axial images were obtained through the chest after uneventful bolus administration of intravenous contrast. 3D reconstructed CTA MIP acquisitions were also performed. Auto Exposure Controls were utilized during the CT exam to meet ALARA standards for radiation dose reduction. DATE: October 06, 2021. COMPARISON: Chest radiograph October 06, 2021. INDICATION: 51-year-old male, COVID 19 positive. Shortness of breath. FINDINGS: There is multifocal fairly patchy alveolar consolidation bilaterally including areas of groundglass attenuation and consolidation. There is no pneumothorax. There is pneumomediastinum. There is no pleural effusion. There is no identified central pulmonary embolus. There are limitations for evaluation of segmental and subsegmental pulmonary emboli given the timing the contrast bolus. The heart is not enlarged. There is no pericardial effusion. There is no identified abnormally enlarged mediastinal, hilar, or axillary lymph node meeting CT size criteria for adenopathy. There is a peripherally enhancing lesion in the right lobe of liver on axial image 147 measuring up to approximately 2.0 cm in size. There is an incompletely imaged low-attenuation right renal lesion on axial image 164 which measures 1.4 cm in size with internal attenuation of 15 Hounsfield units. This likely relates to a benign cyst although is not able to be definitively characterized. There is no identified acute bony abnormality. IMPRESSION: CT CHEST. 1. Extensive multifocal bilateral lung consolidation most consistent with COVID 19 infection and multifocal pneumonia/pneumonitis. 2. No identified central pulmonary embolus. 3. Pneumomediastinum. 4. Peripherally enhancing hypervascular lesion in the liver measuring up to 2.0 cm in size. Recommend nonemergent CT abdomen without and with intravenous contrast, liver mass protocol, for further assessment. Dictated by: Dictated on workstation # [id number]
[2021-10-06] MEDS ORDERED: NS IV 1000 ML 1,000 ML ONE (11:47)
[2021-10-06] MEDS ORDERED: ONDANSETRON 4 MG/2 ML (SDV) Z0FRAN IV PRN (12:00)
[2021-10-06] MEDS: NS IV 1000 ML 1,000 ML IV SCH ×2 (12:25→19:54)
[2021-10-06] MEDS ORDERED: inSUlin ASPART (NovoLOG) 1 UNIT/0.01 ML (CHARGE PER UNIT) SQ SCH (12:30)
--- NOTE | 2021-10-06 14:11 | Tele-ICU Consult ---
History of Present Illness History of Present Illness Date Seen by Provider: Oct 06, 2021 Time Seen by Provider: 14:05 Date of Admission 10/06/21 History of Present Illness He is a 51-year-old male with past medical history of hypertension and hyperlipidemia presented to the emergency room with a complaint of nausea vomiting diarrhea, shortness of breath and a cough for about 2 weeks. Apparently his granddaughter had similar symptoms. He went to [facility] 3 days prior to this admi ssion where his Covid test was negative. Today he is a chest x-ray showed bilateral extensive infiltrates. He is hypoxic requiring Vapotherm in the emergency room. He denies any history of diabetes mellitus. Apparently he is unvaccinated for Covid. He is further evaluated in the CT in the emergency room with a CT angiogram of the chest which showed a small pneumomediastinum, bilateral extensive lobar as well as groundglass opacities. His PCR for Covid19 came positive. He is admitted to the intensive care unit for further evaluation and management. He is currently using Vapotherm. His blood pressure has been high. Denies any history of diabetes mellitus in the past no telemetry ICU consult is requested but I am seeing the patient for protocol..Video visit made and assessed with tele icu camera Allergies and Home Medications Allergies Coded Allergies: No Known Drug Allergies (Unverified , 04/13/19) Home Medications Escitalopram Oxalate 20 Mg Tablet, 20 MG PO DAILY, (Reported) Lisinopril 10 Mg Tablet, 0 PO DAILY, (Reported) Trazodone HCl 50 Mg Tablet, 50 MG PO HS, (Reported) Past Medical/Social/Family Hx Patient Social History Tobacco Use?: No Smoking Status: Never a Smoker Immunizations Up To Date Influenza Vaccine Up-to-Date: No; Not Current Current Status Primary Language: Thai Preferred Spoken Language: Thai Review of Systems Constitutional: see HPI Other ROS PER ATTENDING PHYSICIAN Sepsis Event Evaluation Sepsis Stage: Sepsis Possible Source: Pulmonary Height, Weight, BMI Height: 5'10.00" Weight: 182lbs. 0.0oz. 82.490417oj; 24.00 BMI Method: Exam Exam Patient acknowledged, consented, and participated in this virtual visit which was conducted using real time audio/video Vital Signs Date Time Temp Pulse Resp B/P (MAP) Pulse Ox O2 Delivery O2 Flow Rate FiO2 10/06/21 13:03 93 Vapotherm 30.00 65.00 10/06/21 13:00 94 12 163/106 (125) 95 Vapotherm 25.00 55.00 10/06/21 13:00 95 10/06/21 12:48 37.0 101 90 55 10/06/21 12:00 Vapotherm 25.00 55 10/06/21 12:00 101 25 154/101 (118) 90 Vapotherm 25.00 55.00 10/06/21 11:27 97 10/06/21 11:15 98 13 162/98 (119) 92 Vapotherm 25.00 55.00 10/06/21 11:15 36.1 10/06/21 10:54 85 18 156/100 95 Vapotherm 10/06/21 10:17 93 18 147/90 93 Vapotherm 10/06/21 09:05 Nasal Cannula 3.00 10/06/21 08:37 86 18 156/100 94 Vapotherm 10/06/21 08:13 93 Vapotherm 30.00 70 10/06/21 07:39 37.0 100 18 187/118 (141) 81 Room Air Height & Weight Height: 5'10.00" Weight: 182lbs. 0.0oz. 82.852946cw; 24.00 BMI Method: General Appearance: WD/WN, Other (mild to moderate distress) HEENT: PERRL/EOMI, Normal ENT Inspection, Other (dry mucous membranes) Neck: Normal Inspection, Supple Respiratory: Other (tachypneic, moderate respiratory distress, but able to speak in full sentences; minimal crackles at the bases, no wheezing or stridor) Cardiovascular: No Edema, No Murmur, Tachycardia Capillary Refill: Less Than 3 Seconds Peripheral Pulses: 2+ Radial Pulses (R), 2+ Radial Pulses (L) Extremity: Normal Inspection, No Calf Tenderness, No Pedal Edema Neurologic/Psychiatric: Alert, Oriented x3, No Motor/Sensory Deficits Skin: Normal Color, Warm/Dry Other comments PE PER ATTENDING PHYSICIAN Results Lab Laboratory Tests 10/06/21 08:01 Radiology NAME: REJI ME[facility] REC#: [id number] PT STATUS: ADM IN : 1970 PHYSICIAN: JAVIER ORDONEZ MD ADMIT DATE: 10/06/21/ICU Signed Date of Exam:10/06/21 CT ANGIO CHEST W PROCEDURE: CT angiography of the chest with contrast. TECHNIQUE: Multiple contiguous axial images were obtained through the chest after uneventful bolus administration of intravenous contrast. 3D reconstructed CTA MIP acquisitions were also performed. Auto Exposure Controls were utilized during the CT exam to meet ALARA standards for radiation dose reduction. DATE: October 06, 2021. COMPARISON: Chest radiograph October 06, 2021. INDICATION: 51-year-old male, COVID 19 positive. Shortness of breath. FINDINGS: There is multifocal fairly patchy alveolar consolidation bilaterally including areas of groundglass attenuation and consolidation. There is no pneumothorax. There is pneumomediastinum. There is no pleural effusion. There is no identified central pulmonary embolus. There are limitations for evaluation of segmental and subsegmental pulmonary emboli given the timing the contrast bolus. The heart is not enlarged. There is no pericardial effusion. There is no identified abnormally enlarged mediastinal, hilar, or axillary lymph node meeting CT size criteria for adenopathy. There is a peripherally enhancing lesion in the right lobe of liver on axial image 147 measuring up to approximately 2.0 cm in size. There is an incompletely imaged low-attenuation right renal lesion on axial image 164 which measures 1.4 cm in size with internal attenuation of 15 Hounsfield units. This likely relates to a benign cyst although is not able to be definitively characterized. There is no identified acute bony abnormality. IMPRESSION: CT CHEST. 1. Extensive multifocal bilateral lung consolidation most consistent with COVID 19 infection and multifocal pneumonia/pneumonitis. 2. No identified central pulmonary embolus. 3. Pneumomediastinum. 4. Peripherally enhancing hypervascular lesion in the liver measuring up to 2.0 cm in size. Recommend nonemergent CT abdomen without and with intravenous contrast, liver mass protocol, for further assessment. Dictated by: Dictated on workstation # [id number] Dict: 10/06/21 0959 Trans: 10/06/21 1042 CV [id number] Interpreted by: RED HARRIS MD Electronically signed by: RED HARRIS MD 10/06/21 1042 Assessment/Plan Assessment/Plan 1. Severe Covid19 viral pneumonia 2. ARDS secondary to Covid19 pneumonia 3. Hyper tension uncontrolled 4. Hyperlipidemia. 5. Hypercoagulable state secondary to Covid19 pneumonia Recommendations 1. IV Decadron per protocol 2. Vapotherm for oxygenation and ventilation. 3. We will give him additionally amlodipine for blood pressure control 4. DVT prophylaxis and ulcer prophylaxis 5. Insulin for sliding scale coverage to control hyperglycemia due to steroids 6. We will start him on remdesivir. 7. We will give acyclovir for additional protection. 8. We will give him IV antibiotics per possible superadded bacterial infection. Critical Care: Critically Ill Patient Time spent with patient (mins): 45 MIRNA TOBAR MD Oct 06, 2021 14:11
[2021-10-06] MEDS ORDERED: REMDESIVIR INJ 200 MG in NS (IVPB) 210 ML IV ONE (14:15)
[2021-10-06] MEDS ORDERED: FAMOTIDINE 20 MG (PEPCID) TABLET PO PRN (14:15)
--- NOTE | 2021-10-06 14:37 | History & Physical-Hospitalist ---
History of Present Illness HPI/Chief Complaint Admisison Planning May Need Admission (Planning): 08:00 (JAVIER ORDNOEZ MD) Progress Progress Note #1: Time: 08:11 Progress Note 51-year-old male presents to the emergency department with his parents chief complaint of increasing shortness of breath, cough, body aches headache, nausea vomiting and diarrhea. Tells us initially that he was seen by [facility] 2 or 3 days ago, tested negative for Covid. Later his father contributes to the history stating that the patient was in fact told that he had pneumonia and was started on an antibiotic however the patient cannot recall what that was when asked. Patient states that he does not and has not ever smoked. He does not work around fumes or smoke. He states his cough is nonproductive. Has had profoundly severe shortness of breath with exertion over the last 24 hours. Takes medication for cholesterol and hypertension although did not take his medicine for hypertension this morning. Denies known sick contacts with Covid. Is not vaccinated. No history of blood clot in family or himself. No recent prolonged immobility or travel. No pain or swelling in his lower extremities. No recent black or bloody stool. Complains that his heart is "racing". Room air sats in the 70s on arrival to the emergency department. Still at 88 to 89% on 12 L per nasal cannula. Patient is noted to have fine rales at the bases bilaterally, moderate respiratory distress. No swelling in his lower extremities. No tenderness in the calves, negative Homans bilaterally. No rashes. Soft nontender abdomen. Dry oral mucosa. Sepsis work-up initiated with Covid and influenza testing. D-dimer pending. Chest x-ray pending. Patient is started on Vapotherm per respiratory therapy. Date Seen 10/06/21 Time Seen by a Provider: 14:37 Attending Physician Porter Arellano MD PCP Renny Rodriguez MD Referring Physician Date of Admission Oct 06, 2021 at 09:25 Home Medications & Allergies Home Medications Reviewed patient Home Medication Reconciliation performed by pharmacy medication reconciliations customer account technician and/or nursing. Patients Allergies have been reviewed. Allergies Allergies Coded Allergies No Known Drug Allergies (Unverified04/13/19) Past Rdhrbam-Ruqmuv-Fdazva Hx Patient Social History Tobacco Use?: No Smoking Status: Never a Smoker Seasonal Allergies Seasonal Allergies: No Current Status Primary Language: Niuean Preferred Spoken Language: Niuean Past Medical History Surgeries: Tonsillectomy Currently Using CPAP: No Currently Using BIPAP: No High Cholesterol, Hypertension Sexually Transmitted Disease: No HIV/AIDS: No Loss of Vision: Denies Hearing Impairment: Denies Anxiety, Depression Blood Disorders: No Adverse Reaction/Blood Tranf: No (N/A) Review of Systems Constitutional: see HPI Physical Exam Physical Exam Vital Signs Vital Signs - First Documented 10/06/21 10/06/21 07:39 08:13 Temp 37.0 Pulse 100 Resp 18 B/P (MAP) 187/118 (141) Pulse Ox 81 O2 Delivery Room Air O2 Flow Rate 30.00 FiO2 70 Capillary Refill : Less Than 3 Seconds Height, Weight, BMI Height: 5'10.00" Weight: 182lbs. 0.0oz. 82.607796zd; 25.79 BMI Method: General Appearance: Anxious Respiratory: Chest Non Tender, No Accessory Muscle Use, No Respiratory Distress, Other (Fine rales to the mid lung linda bilaterally elsewhere chest is clear no wheezing or rhonchi.) Cardiovascular: Regular Rate, Rhythm, No Edema, No Gallop, No JVD, No Murmur, Normal Peripheral Pulses Gastrointestinal: Normal Bowel Sounds, No Organomegaly, No Pulsatile Mass, Non Tender, Soft Extremity: Normal Capillary Refill, Normal Inspection, Normal Range of Motion, Non Tender, No Calf Tenderness, No Pedal Edema Results Results/Procedures Labs Laboratory Tests 10/06/21 08:01 Patient resulted labs reviewed. Assessment/Plan Admission Diagnosis 1. Covid related pneumonia with secondary respiratory failure no evidence for secondary bacterial infection we will continue high flow oxygen and Decadron prognosis guarded. 2. History of depression and anxiety exacerbated by #1 we will give as needed alprazolam and resume SSRI therapy and the patient is also used to taking low- dose trazodone to help him sleep at night we will continue 50 mg at at bedtime. Admission Status: Inpatient Order (span 2 midnights) Reason for Inpatient Admission: See #1 Critical Care Critically Ill Patient PORTER ARELLANO MD Oct 06, 2021 14:37
[2021-10-06] MEDS ORDERED: FLU QUADRIvalent (3YOA+) 60 mcg/0.5 ml 2021-22(AFLURIA) IM ONE (14:45)
[2021-10-06] MEDS ORDERED: ENOXAPARIN 40 MG/0.4 ML (LOVENOX) SYR SC SCH (15:00)
[2021-10-06] MEDS: amLODIPine 5 MG (NORVASC) TAB PO SCH (15:04)
[2021-10-06] MEDS: RT-ALBUTEROL HFA 8.5 GM INHALER IH SCH (15:27)
[2021-10-06] MEDS: inSUlin ASPART (NovoLOG) 1 UNIT/0.01 ML (CHARGE PER UNIT) SQ SCH ×2 (18:33→23:14)
[2021-10-06] MEDS: ACYCLOVIR 400 MG TABLET (ZOVIRAX) PO SCH (18:33)
[2021-10-06] MEDS: ALPRAZolam 0.5 MG (XANAX) TAB PO PRN (18:33)
[2021-10-06] MEDS: ACETAMINOPHEN 500 MG TAB (TYLENOL) PO PRN (18:33)
[2021-10-06] MEDS: AtorvaSTATin TABLET 10 MG TABLET PO SCH (19:56)
[2021-10-06] MEDS: traZODone 50 MG (DESYREL) TAB PO SCH (19:56)
[2021-10-07] VITALS (24 sets, daily range): BP systolic 123–166; BP diastolic 81–107
[2021-10-07] MEDS: ALPRAZolam 0.5 MG (XANAX) TAB PO PRN ×2 (02:05→22:52)
[2021-10-07] MEDS: NS IV 1000 ML 1,000 ML IV SCH ×2 (02:12→09:50)
[2021-10-07] MEDS: RT-ALBUTEROL HFA 8.5 GM INHALER IH SCH ×4 (02:30→20:36)
[2021-10-07] MEDS: ACETAMINOPHEN 500 MG TAB (TYLENOL) PO PRN ×2 (05:54→17:12)
[2021-10-07 05:56] LABS: PHOSPHORUS 2.7 MG/DL (2.3-4.7)
[2021-10-07 05:57] LABS: CREATININE SERUM 0.76 MG/DL (0.60-1.30)
[2021-10-07 05:59] LABS: MAGNESIUM 2.4 MG/DL (1.6-2.4)
[2021-10-07] MEDS: inSUlin ASPART (NovoLOG) 1 UNIT/0.01 ML (CHARGE PER UNIT) SQ SCH ×4 (05:59→23:04)
[2021-10-07] MEDS: POTASSIUM CL 10MEQ/50ML IVPB 50 ML IV SCH (06:10)
[2021-10-07] MEDS: KCL 20 MEQ TAB (K-DUR) PO SCH (06:11)
[2021-10-07] MEDS: MAGNESIUM 1 GM/100 ML IVPB 100 ML IV SCH (06:11)
[2021-10-07] MEDS ORDERED: NON-FORMULARY MEDICATION 1 EA EA (Escitalopram Oxalate (Lexapro) 20 MG) PO SCH (09:00)
[2021-10-07] MEDS: ACYCLOVIR 400 MG TABLET (ZOVIRAX) PO SCH ×2 (09:42→17:12)
[2021-10-07] MEDS: lisINopril 10 MG (PRINIVIL) TABLET PO SCH (09:42)
[2021-10-07] MEDS: amLODIPine 5 MG (NORVASC) TAB PO SCH (09:42)
--- NOTE | 2021-10-07 10:11 | Tele-ICU Progress Note ---
Subjective Date Seen by a Provider: Oct 07, 2021 Time Seen by a Provider: 08:20 Subjective/Events-last exam This virtual visit was conducted using real time audio/video. Thank you for asking us to see this patient for respiratory insufficiency due to Covid pna. Recent events: Intermittently proning. PE: VSS. O2 sat 90% on 35/90% lying on his side. HEENT: No obvious masses, adenopathy or JVD. Chest: Coarse sounds. CV: RRR S1 S2 No murmur or added sounds. Abd: Non-tender. Bowel sounds Y. : Unremarkable. Hurd Y. FORM TAMPING MACHINE OPERATOR/psychiatric: Grossly intact. No obvious focal findings. Extremities: No edema. Capillary refill < 3 seconds. Skin: unremarkable. Results: Unrem. CXR: B infilts. Available chart/ vitals / labs / images reviewed. Video assessment done using teleICU camera, rest of exam as per RN. A/P: Respiratory insufficiency: Continue present management with VT, proning PRN Monitor for increasing oxygenation needs and/or need for intubation. Critical Care: critically ill patient. Cont. Alb., Dex., Remdesivir, Nick., SSI. Discussed with RN Mayte. Asked RN to reach out to eICU if any questions or concerns later. Time spent with patient/coordination of care with other health professionals (mins): 25 Sepsis Event Evaluation Height, Weight, BMI Height: 5'10.00" Weight: 182lbs. 0.0oz. 82.896672qm; 25.79 BMI Method: Focused Exam Lactate Level 10/06/21 08:01: Lactic Acid Level 1.41 Exam Exam Patient acknowledged, consented, and participated in this virtual visit which was conducted using real time audio/video Vital Signs Date Time Temp Pulse Resp B/P (MAP) Pulse Ox O2 Delivery O2 Flow Rate FiO2 10/07/21 09:00 100 22 166/96 (119) 91 Vapotherm 35.00 75.00 10/07/21 08:00 76 26 162/107 (125) 95 Vapotherm 35.00 75.00 10/07/21 08:00 37.2 10/07/21 07:00 70 10/07/21 07:00 92 15 151/90 (110) 97 Vapotherm 35.00 75.00 10/07/21 06:09 90 Vapotherm 35.00 75.00 10/07/21 06:00 90 14 155/100 (118) 95 Vapotherm 25.00 60.00 10/07/21 05:00 76 18 131/92 (105) 90 Vapotherm 25.00 60.00 10/07/21 04:00 36.6 97 Vapotherm 25.00 60.00 10/07/21 04:00 71 28 123/84 (97) 93 Vapotherm 25.00 60.00 10/07/21 03:59 94 Vapotherm 25.00 60 10/07/21 03:00 77 20 150/92 (111) 94 Vapotherm 25.00 60.00 10/07/21 02:31 91 Vapotherm 25.00 60 10/07/21 02:00 95 Vapotherm 25.00 60.00 10/07/21 02:00 95 22 154/105 (121) 94 Vapotherm 25.00 60.00 10/07/21 01:00 80 10/07/21 01:00 70 28 130/102 (111) 95 Vapotherm 30.00 60.00 10/07/21 00:00 36.3 Vapotherm 30.00 60.00 10/07/21 00:00 73 21 125/94 (104) 94 Vapotherm 30.00 60.00 10/06/21 23:15 Vapotherm 30.00 60 10/06/21 23:00 67 25 147/95 (112) 96 Vapotherm 30.00 65.00 10/06/21 22:00 70 27 124/82 (96) 97 Vapotherm 30.00 65.00 10/06/21 21:00 73 23 129/87 (101) 97 Vapotherm 30.00 65.00 10/06/21 20:00 Vapotherm 30.00 60 10/06/21 20:00 36.8 10/06/21 20:00 79 23 142/94 (110) 97 Vapotherm 30.00 65.00 10/06/21 19:00 92 10/06/21 19:00 76 25 160/104 (122) 95 Vapotherm 30.00 65.00 10/06/21 18:37 91 Vapotherm 30.00 65.00 10/06/21 18:00 94 17 156/94 (114) 95 Vapotherm 30.00 60.00 10/06/21 17:00 93 15 145/84 (104) 95 Vapotherm 30.00 60.00 10/06/21 16:00 90 10 161/102 (121) 95 Vapotherm 30.00 60.00 10/06/21 16:00 37.1 10/06/21 15:50 Vapotherm 30.00 60 10/06/21 15:28 92 Vapotherm 30.00 65 10/06/21 15:21 94 Vapotherm 30.00 60.00 10/06/21 15:05 91 Vapotherm 35.00 70.00 10/06/21 15:00 105 25 154/105 (121) 93 Vapotherm 30.00 65.00 10/06/21 14:00 96 23 159/98 (118) 94 Vapotherm 30.00 65.00 10/06/21 13:03 93 Vapotherm 30.00 65.00 10/06/21 13:00 94 12 163/106 (125) 95 Vapotherm 25.00 55.00 10/06/21 13:00 95 10/06/21 12:48 37.0 101 90 55 10/06/21 12:00 Vapotherm 25.00 55 10/06/21 12:00 101 25 154/101 (118) 90 Vapotherm 25.00 55.00 10/06/21 11:27 97 10/06/21 11:15 98 13 162/98 (119) 92 Vapotherm 25.00 55.00 10/06/21 11:15 36.1 10/06/21 10:54 85 18 156/100 95 Vapotherm 10/06/21 10:17 93 18 147/90 93 Vapotherm I & O 10/07/21 07:00 Intake Total 3380 ml Output Total 2175 ml Balance 1205 ml Height & Weight Height: 5'10.00" Weight: 182lbs. 0.0oz. 82.573747nx; 25.79 BMI Method: General Appearance: No Apparent Distress (See free text), Anxious HEENT: PERRL/EOMI, Normal ENT Inspection, Other (dry mucous membranes) Neck: Normal Inspection, Supple Respiratory: Chest Non Tender, No Accessory Muscle Use, No Respiratory Distress, Other (Fine rales to the mid lung linda bilaterally elsewhere chest is clear no wheezing or rhonchi.) Cardiovascular: Regular Rate, Rhythm, No Edema, No Gallop, No JVD, No Murmur, Normal Peripheral Pulses Capillary Refill: Less Than 3 Seconds Peripheral Pulses: 1+ Dorsalis Pedis (R), 1+ Left Dors-Pedis (L); 2+ Radial Pulses (R), 2+ Radial Pulses (L) Extremity: Normal Capillary Refill, Normal Inspection, Normal Range of Motion, Non Tender, No Calf Tenderness, No Pedal Edema Neurologic/Psychiatric: Alert, Oriented x3, No Motor/Sensory Deficits Skin: Normal Color, Warm/Dry Results Lab Laboratory Tests 10/06/21 08:01 10/07/21 05:11 Assessment/Plan Assessment/Plan See free text Critical Care: Critically Ill Patient FERDINAND HERNANDEZ MD Oct 07, 2021 10:11
--- NOTE | 2021-10-07 12:32 | Progress Note - Hospitalist ---
Subjective HPI/CC On Admission Date Seen by Provider: Oct 07, 2021 Time Seen by Provider: 12:27 Admisison Planning May Need Admission (Planning): 08:00 (JAVIER ORDONEZ MD) Progress Progress Note #1: Time: 08:11 Progress Note 51-year-old male presents to the emergency department with his parents chief complaint of increasing shortness of breath, cough, body aches headache, nausea vomiting and diarrhea. Tells us initially that he was seen by [facility] 2 or 3 days ago, tested negative for Covid. Later his father contributes to the history stating that the patient was in fact told that he had pneumonia and was started on an antibiotic however the patient cannot recall what that was when asked. Patient states that he does not and has not ever smoked. He does not work around fumes or smoke. He states his cough is nonproductive. Has had profoundly severe shortness of breath with exertion over the last 24 hours. Takes medication for cholesterol and hypertension although did not take his medicine for hypertension this morning. Denies known sick contacts with Covid. Is not vaccinated. No history of blood clot in family or himself. No recent prolonged immobility or travel. No pain or swelling in his lower extremities. No recent black or bloody stool. Complains that his heart is "racing". Room air sats in the 70s on arrival to the emergency department. Still at 88 to 89% on 12 L per nasal cannula. Patient is noted to have fine rales at the bases bilaterally, moderate respiratory distress. No swelling in his lower extremities. No tenderness in the calves, negative Homans bilaterally. No rashes. Soft nontender abdomen. Dry oral mucosa. Sepsis work-up initiated with Covid and influenza testing. D-dimer pending. Chest x-ray pending. Patient is started on Vapotherm per respiratory therapy. Subjective/Events-last exam Patient currently requiring 35 L flow at 90% FiO2 to maintain saturations above 90%. He has been intermittently prone for activity or coughing related temporary drops in FiO2 into the upper 80s which reportedly quickly gets his oxy gen level back up. He reports fatigue and a low-grade headache denies shortness of breath or chest pain. Focused Exam Lactate Level 10/06/21 08:01: Lactic Acid Level 1.41 Objective Exam Vital Signs Vital Signs Date Time Temp Pulse Resp B/P (MAP) Pulse Ox O2 Delivery O2 Flow Rate FiO2 10/07/21 12:00 81 29 153/101 (118) 93 Vapotherm 35.00 75.00 10/07/21 08:00 90 10/07/21 08:00 37.2 Capillary Refill : Less Than 3 Seconds General Appearance: Anxious, Mild Distress Respiratory: No Accessory Muscle Use, No Respiratory Distress, Other (Coarse breath sounds throughout with fine rales to the mid lung linda bilaterally no wheezing appreciated.) Cardiovascular: Regular Rate, Rhythm, No Edema, No Gallop, No JVD, No Murmur, Normal Peripheral Pulses Extremity: Normal Inspection, Normal Range of Motion, Non Tender, No Calf Tenderness, No Pedal Edema Results/Procedures Lab Laboratory Tests 10/07/21 05:11 Patient resulted labs reviewed. Assessment/Plan Assessment and Plan Assess & Plan/Chief Complaint 1. Covid pneumonia with respiratory failure. Patient nearly maxed out on Vapotherm with 35 L flow rates and 90% FiO2 did discuss BiPAP if respiratory failure progresses. 2. Hypertension continue current antihypertensive medication. Critical Care Critically Ill Patient ROBBY THORPE MD Oct 07, 2021 12:32
[2021-10-07] MEDS: REMDESIVIR INJ 100 MG in NS (IVPB) 230 ML IV SCH (13:21)
[2021-10-07] MEDS: ENOXAPARIN 40 MG/0.4 ML (LOVENOX) SYR SC SCH (17:12)
[2021-10-07] MEDS: traZODone 50 MG (DESYREL) TAB PO SCH (20:17)
[2021-10-07] MEDS: AtorvaSTATin TABLET 10 MG TABLET PO SCH (20:17)
[2021-10-08] VITALS (21 sets, daily range): BP systolic 137–176; BP diastolic 87–107
[2021-10-08 01:22] LABS: CALCIUM 8.5 MG/DL (8.5-10.1)
[2021-10-08 01:26] LABS: CREATININE SERUM 0.78 MG/DL (0.60-1.30); PHOSPHORUS 3.6 MG/DL (2.3-4.7)
[2021-10-08 01:29] LABS: MAGNESIUM 2.6 MG/DL (1.6-2.4)
[2021-10-08] MEDS: RT-ALBUTEROL HFA 8.5 GM INHALER IH SCH ×4 (02:29→21:49)
[2021-10-08 04:23] LABS: BASOPHILS % (AUTO) 0 % (0-10); EOSINOPHILS % (AUTO) 0 % (0-10); HEMATOCRIT 46 % (40-54); HEMOGLOBIN 15.2 g/dL (13.3-17.7); LYMPHOCYTES # (AUTO) 0.8 10^3/uL (1.0-4.0); LYMPHOCYTES % (AUTO) 8 % (12-44); MEAN CORPUSCULAR HEMOGLOBIN 28 pg (25-34); MEAN CORPUSCULAR HGB CONC 33 g/dL (32-36); MEAN CORPUSCULAR VOLUME 87 fL (80-99); MEAN PLATELET VOLUME 11.2 fL (9.0-12.2); MONOCYTES # (AUTO) 0.4 10^3/uL (0.0-1.0); MONOCYTES % (AUTO) 4 % (0-12); NEUTROPHILS # (AUTO) 9.1 10^3/uL (1.8-7.8); NEUTROPHILS % (AUTO) 85 % (42-75); PLATELET COUNT 224 10^3/uL (130-400); WHITE BLOOD COUNT 10.8 10^3/uL (4.3-11.0)
[2021-10-08] MEDS: POTASSIUM CL 10MEQ/50ML IVPB 50 ML IV SCH (05:09)
[2021-10-08] MEDS: KCL 20 MEQ TAB (K-DUR) PO SCH (05:10)
[2021-10-08] MEDS: MAGNESIUM 1 GM/100 ML IVPB 100 ML IV SCH (05:10)
[2021-10-08] MEDS: inSUlin ASPART (NovoLOG) 1 UNIT/0.01 ML (CHARGE PER UNIT) SQ SCH ×3 (05:10→17:29)
[2021-10-08] MEDS: ACETAMINOPHEN 500 MG TAB (TYLENOL) PO PRN ×2 (08:48→17:29)
[2021-10-08] MEDS: ACYCLOVIR 400 MG TABLET (ZOVIRAX) PO SCH ×2 (08:48→17:28)
[2021-10-08] MEDS: REMDESIVIR INJ 100 MG in NS (IVPB) 230 ML IV SCH (08:48)
[2021-10-08] MEDS: lisINopril 10 MG (PRINIVIL) TABLET PO SCH (08:48)
[2021-10-08] MEDS: amLODIPine 5 MG (NORVASC) TAB PO SCH (08:49)
--- NOTE | 2021-10-08 11:32 | Tele-ICU Progress Note ---
Subjective Date Seen by a Provider: Oct 08, 2021 Time Seen by a Provider: 10:00 Sepsis Event Evaluation Height, Weight, BMI Height: 5'10.00" Weight: 182lbs. 0.0oz. 82.027716go; 25.79 BMI Method: Focused Exam Lactate Level 10/06/21 08:01: Lactic Acid Level 1.41 Exam Exam Patient acknowledged, consented, and participated in this virtual visit which was conducted using real time audio/video Vital Signs Date Time Temp Pulse Resp B/P (MAP) Pulse Ox O2 Delivery O2 Flow Rate FiO2 10/08/21 10:00 90 17 146/90 (109) 96 Vapotherm 35.00 100.00 10/08/21 09:45 74 26 95 Vapotherm 35.00 100.00 10/08/21 09:30 96 21 95 Vapotherm 35.00 100.00 10/08/21 09:15 88 22 95 Vapotherm 35.00 100.00 10/08/21 09:00 101 23 91 Vapotherm 35.00 100.00 10/08/21 08:45 100 22 94 Vapotherm 35.00 100.00 10/08/21 08:30 90 29 93 Vapotherm 35.00 100.00 10/08/21 08:23 87 10/08/21 08:16 99 Vapotherm 40.00 100 10/08/21 08:00 36.4 10/08/21 08:00 92 23 150/91 (111) 96 Vapotherm 35.00 100.00 10/08/21 07:45 86 25 92 Vapotherm 35.00 100.00 10/08/21 07:30 102 52 83 Vapotherm 35.00 100.00 10/08/21 07:15 88 23 92 Vapotherm 35.00 100.00 10/08/21 07:00 95 11 149/98 (115) 95 Vapotherm 35.00 100.00 10/08/21 07:00 87 10/08/21 06:00 77 31 150/92 (111) 91 Vapotherm 35.00 100.00 10/08/21 05:09 36.8 10/08/21 05:00 77 27 149/94 (112) 97 Vapotherm 35.00 100.00 10/08/21 04:00 97 15 147/90 (109) 89 Vapotherm 35.00 100.00 10/08/21 04:00 95 Vapotherm 40.00 100 10/08/21 03:00 86 29 146/87 (112) 93 Vapotherm 35.00 100.00 10/08/21 02:29 91 Vapotherm 40.00 100 10/08/21 02:00 68 27 147/94 (110) 91 Vapotherm 35.00 100.00 10/08/21 01:47 71 30 165/105 (122) 91 Vapotherm 35.00 100.00 10/08/21 01:03 84 10/08/21 00:00 78 29 163/94 (114) 92 Vapotherm 35.00 100.00 10/08/21 00:00 36.6 10/08/21 00:00 96 Vapotherm 40.00 100 10/07/21 23:00 70 26 147/92 (110) 98 Vapotherm 35.00 100.00 10/07/21 22:00 79 30 147/85 (105) 97 Vapotherm 35.00 100.00 10/07/21 21:00 81 28 143/94 (110) 97 Vapotherm 35.00 100.00 10/07/21 20:36 96 Vapotherm 35.00 100 10/07/21 20:00 81 28 154/82 (106) 97 Vapotherm 35.00 100.00 10/07/21 20:00 36.7 10/07/21 20:00 93 Vapotherm 40.00 100 10/07/21 19:00 81 21 154/99 (117) 96 Vapotherm 35.00 100.00 10/07/21 19:00 84 10/07/21 19:00 83 10/07/21 18:00 87 23 153/98 (116) 96 Vapotherm 35.00 100.00 10/07/21 17:00 100 33 164/97 (119) 94 Vapotherm 35.00 100.00 10/07/21 16:44 36.8 10/07/21 16:00 91 Vapotherm 40.00 100 10/07/21 16:00 96 25 156/97 (116) 93 Vapotherm 35.00 100.00 10/07/21 15:16 Vapotherm 35.00 100.00 10/07/21 15:00 105 21 161/94 (116) 92 Vapotherm 35.00 75.00 10/07/21 14:48 92 Vapotherm 35.00 100 10/07/21 14:00 99 12 146/88 (107) 97 Vapotherm 35.00 75.00 10/07/21 13:00 94 24 157/101 (119) 93 Vapotherm 35.00 75.00 10/07/21 12:50 84 10/07/21 12:00 81 29 153/101 (118) 93 Vapotherm 35.00 75.00 10/07/21 12:00 36.2 10/07/21 12:00 91 Vapotherm 40.00 100 I & O 10/08/21 07:00 Intake Total 2760 ml Output Total 2475 ml Balance 285 ml Height & Weight Height: 5'10.00" Weight: 182lbs. 0.0oz. 82.812360pp; 25.79 BMI Method: General Appearance: Anxious, Mild Distress HEENT: PERRL/EOMI, Normal ENT Inspection, Other (dry mucous membranes) Neck: Normal Inspection, Supple Respiratory: No Accessory Muscle Use, No Respiratory Distress, Other (Coarse breath sounds throughout with fine rales to the mid lung linda bilaterally no wheezing appreciated.) Cardiovascular: Regular Rate, Rhythm, No Edema, No Gallop, No JVD, No Murmur, Normal Peripheral Pulses Capillary Refill: Less Than 3 Seconds Peripheral Pulses: 1+ Dorsalis Pedis (R), 1+ Left Dors-Pedis (L); 2+ Radial Pulses (R), 2+ Radial Pulses (L) Extremity: Normal Inspection, Normal Range of Motion, Non Tender, No Calf Tenderness, No Pedal Edema Neurologic/Psychiatric: Alert, Oriented x3, No Motor/Sensory Deficits Skin: Normal Color, Warm/Dry Results Lab Laboratory Tests 10/07/21 05:11 10/08/21 00:56 Assessment/Plan Assessment/Plan (Tele-ICU Physician , Progress Note ) Available chart/ vitals / labs / Images reviewed Video assessment done using teleICU camera, rest of exam as per RN Discussed with RN , EXAM PER RN Events overnight : Afebrile FiO2 - I/O = Drips: Pressors: , hemodynamically stable Consultants: Hospital course: (10/06) 51M Admitted for COVID PNA 10/08 - VT 40 L 100 % A/P AHRF / ARDS due to severe COVID19 - 40 L 100% - will try bipap prn -prone position if able - conservative fluid strategy (aim for even or negative fluid balance HIGH RISK FOR INTUBATION HENE-Fnrbbouxrul-0/COVID-19 PNA ( NO pe 10/06 DX unvaccinted --Remdesivir --Dexamethasone -Hypercoagulable state -> lovenox ppx dose ( no evidence of large PE on CT 10/06 ) monitor for superimposed bact PNA -PCT negative , OFF abx transaminitis likely due to COVID-19. - mild , follow PATIENT IS ON ACYCLOVIR 400 PO BID - ASSUMED HE RECIVED [id number] - CAN NOT FIND IT ON EMR - --> PER PCP Lines : peripf (Central Line Necessity Reviewed) Hurd: + OG: Nutrition: po Analgesia: Anxiety/ delirium VTE Prophylaxis: steve 40 Stress Ulcer Prophylaxis: Plans in collaboration with bedside consultants and IM MDs. Discussed with RN to reach out if any questions or concerns A total of 32 minutes of critical care time was devoted to this patient today, required to treat and/or prevent further deterioration of critical care condition ( as above) . JOHN CROW MD Oct 08, 2021 11:32
--- NOTE | 2021-10-08 15:52 | Progress Note ---
Subjective Subjective/Events-last exam Seen at 1030 am. Requiring from 85 to 100% FiO2 on vapotherm, but states he is feeling markedly better as far as respiratory effort over the last hour or so. Focused Exam Lactate Level 10/06/21 08:01: Lactic Acid Level 1.41 Objective Exam Last Set of Vital Signs Vital Signs Date Time Temp Pulse Resp B/P (MAP) Pulse Ox O2 Delivery O2 Flow Rate FiO2 10/08/21 14:49 94 Vapotherm 40.00 80 10/08/21 14:00 95 27 10/08/21 13:00 154/91 (112) 10/08/21 12:54 37.0 Capillary Refill : Less Than 3 Seconds I&O Intake and Output 10/08/21 00:00 Intake Total 2560 ml Output Total 2750 ml Balance -190 ml Intake Oral 1760 ml IV Total 800 ml Output Urine Total 2750 ml General: Alert, No Acute Distress Lungs: Other (ronchi) Heart: Regular Rate Abdomen: Normal Bowel Sounds, Soft Neuro: Normal Speech Psych/Mental Status: Mental Status NL Results/Procedures Lab Laboratory Tests 10/07/21 17:11: Glucometer 152H 10/07/21 22:30: Glucometer 117H 10/08/21 00:56: White Blood Count 10.8, Red Blood Count 5.35, Hemoglobin 15.2, Hematocrit 46, Mean Corpuscular Volume 87, Mean Corpuscular Hemoglobin 28, Mean Corpuscular Hemoglobin Concent 33, Red Cell Distribution Width 13.5, Platelet Count 224, Mean Platelet Volume 11.2, Immature Granulocyte % (Auto) 3, Neutrophils (%) (Auto) 85H, Lymphocytes (%) (Auto) 8L, Monocytes (%) (Auto) 4, Eosinophils (%) (Auto) 0, Basophils (%) (Auto) 0, Neutrophils # (Auto) 9.1H, Lymphocytes # (Auto) 0.8L, Monocytes # (Auto) 0.4, Eosinophils # (Auto) 0.0, Basophils # (Auto) 0.0, Immature Granulocyte # (Auto) 0.3H, Sodium Level 142, Potassium Level 4.0, Chloride Level 106, Carbon Dioxide Level 21, Anion Gap 15H, Blood Urea Nitrogen 19H, Creatinine 0.78, Estimat Glomerular Filtration Rate 104, BUN/Creatinine Ratio 24, Glucose Level 106H, Calcium Level 8.5, Phosphorus Level 3.6, Magnesium Level 2.6H 10/08/21 12:24: Glucometer 142H 10/08/21 15:40: Microbiology 10/07/21 Gram Stain - Final, Resulted 10/07/21 Sputum Culture, Resulted Pending 10/06/21 Blood Culture - Preliminary, Resulted No growth Assessment/Plan Assessment/Plan (1) Acute respiratory failure due to COVID-19 Status: Acute Assessment & Plan: Currently requiring high FiO2, will recheck CRP and if increasing, will give Actemra. Continue dexamethasone. Remdesevir started per ICU. D dimer elevated, CTA negative for PE. (2) Pneumonia due to COVID-19 virus Status: Acute (3) Depression Status: Chronic Assessment & Plan: Resume home SSRI (4) Hypertension Status: Chronic Assessment & Plan: Resume home lisinopril (5) Hyperlipidemia Status: Chronic (6) Liver mass, right lobe Status: Acute Assessment & Plan: Seen incidentally on chest CT, needs non-urgent CT liver protocol for follow up. (7) DVT prophylaxis Status: Acute Assessment & Plan: Enoxaparin NELY NEGRO MD Oct 08, 2021 15:52
[2021-10-08 15:58] LABS: ABG BASE EXCESS 0.8 MMOL/L (-2.5-2.5); ABG OXYGEN SATURATION 89 % (94-100); ABG PCO2 32 MMHG (35-45); ABG PH 7.48 (7.37-7.43); ABG PO2 59 MMHG (79-93)
[2021-10-08 16:04] LABS: ALLENS TEST POS; INSPIRED O2 40L; PATIENT TEMP 36.8; VENTILATOR NO
[2021-10-08] MEDS ORDERED: TOCILIZUMAB INJECTION (NON-FOR 400 MG, TOCILIZUMAB INJECTION 200 MG in NS (IVPB) 70 ML IV NR (17:00)
[2021-10-08] MEDS: ENOXAPARIN 40 MG/0.4 ML (LOVENOX) SYR SC SCH (17:28)
[2021-10-08] MEDS: ALPRAZolam 0.5 MG (XANAX) TAB PO PRN (20:44)
[2021-10-08] MEDS: AtorvaSTATin TABLET 10 MG TABLET PO SCH (20:44)
[2021-10-08] MEDS: traZODone 50 MG (DESYREL) TAB PO SCH (23:29)
[2021-10-09] VITALS (23 sets, daily range): BP systolic 102–175; BP diastolic 61–112
[2021-10-09] MEDS: inSUlin ASPART (NovoLOG) 1 UNIT/0.01 ML (CHARGE PER UNIT) SQ SCH ×4 (00:39→18:44)
[2021-10-09] MEDS: RT-ALBUTEROL HFA 8.5 GM INHALER IH SCH ×4 (02:48→22:07)
[2021-10-09 05:51] LABS: BASOPHILS % (AUTO) 0 % (0-10); EOSINOPHILS # (AUTO) 0.1 10^3/uL (0.0-0.3); EOSINOPHILS % (AUTO) 1 % (0-10); HEMATOCRIT 46 % (40-54); HEMOGLOBIN 15.3 g/dL (13.3-17.7); LYMPHOCYTES # (AUTO) 0.8 10^3/uL (1.0-4.0); LYMPHOCYTES % (AUTO) 9 % (12-44); MEAN CORPUSCULAR HEMOGLOBIN 28 pg (25-34); MEAN CORPUSCULAR HGB CONC 33 g/dL (32-36); MEAN CORPUSCULAR VOLUME 85 fL (80-99); MEAN PLATELET VOLUME 10.5 fL (9.0-12.2); MONOCYTES # (AUTO) 0.4 10^3/uL (0.0-1.0); MONOCYTES % (AUTO) 4 % (0-12); NEUTROPHILS # (AUTO) 7.5 10^3/uL (1.8-7.8); NEUTROPHILS % (AUTO) 81 % (42-75); PLATELET COUNT 164 10^3/uL (130-400); WHITE BLOOD COUNT 9.3 10^3/uL (4.3-11.0)
[2021-10-09 06:05] LABS: ALBUMIN 3.1 GM/DL (3.2-4.5)
[2021-10-09 06:06] LABS: CALCIUM 8.3 MG/DL (8.5-10.1)
[2021-10-09 06:07] LABS: TOTAL PROTEIN 6.4 GM/DL (6.4-8.2)
[2021-10-09 06:09] LABS: BILIRUBIN,TOTAL 0.6 MG/DL (0.1-1.0)
[2021-10-09 06:10] LABS: PHOSPHORUS 3.2 MG/DL (2.3-4.7)
[2021-10-09 06:11] LABS: CREATININE SERUM 0.74 MG/DL (0.60-1.30)
[2021-10-09 06:12] LABS: BILIRUBIN,DIRECT 0.3 MG/DL (0.0-0.3); BILIRUBIN,INDIRECT 0.3 MG/DL
[2021-10-09 06:14] LABS: MAGNESIUM 2.5 MG/DL (1.6-2.4)
[2021-10-09] MEDS: POTASSIUM CL 10MEQ/50ML IVPB 50 ML IV SCH (06:18)
[2021-10-09] MEDS: MAGNESIUM 1 GM/100 ML IVPB 100 ML IV SCH (06:19)
[2021-10-09] MEDS: KCL 20 MEQ TAB (K-DUR) PO SCH (06:19)
[2021-10-09 06:22] LABS: BAND NEUTROPHILS 2 %; LYMPHOCYTES % (MANUAL) 4 %; METAMYELOCYTES % 1 %; MONOCYTES % (MANUAL) 5 %; MYELOCYTES % 1 %; NEUTROPHILS % (MANUAL) 87 %; RBC MORPH NORMAL
[2021-10-09] MEDS ORDERED: lisINopril 10 MG (PRINIVIL) TABLET PO SCH (09:00)
[2021-10-09] MEDS: ACYCLOVIR 400 MG TABLET (ZOVIRAX) PO SCH ×2 (09:18→18:42)
[2021-10-09] MEDS: amLODIPine 5 MG (NORVASC) TAB PO SCH (09:18)
[2021-10-09] MEDS: lisINopril 10 MG (PRINIVIL) TABLET PO SCH (09:18)
--- NOTE | 2021-10-09 10:04 | Progress Note ---
Subjective Subjective/Events-last exam Feels like he is having a lot of up and down, currently feeling fairly short of breath, just ate breakfast and that makes his O2 drop. Objective Exam Last Set of Vital Signs Vital Signs Date Time Temp Pulse Resp B/P (MAP) Pulse Ox O2 Delivery O2 Flow Rate FiO2 10/09/21 07:45 36.5 10/09/21 07:13 91 Vapotherm 40.00 100 10/09/21 07:00 78 10/09/21 06:00 24 158/98 (118) Capillary Refill : Less Than 3 Seconds I&O Intake and Output 10/09/21 00:00 Intake Total 1300 ml Output Total 1300 ml Balance 0 ml Intake Oral 1200 ml IV Total 100 ml Output Urine Total 1300 ml # Bowel Movements 3 General: Alert, No Acute Distress Lungs: Other (decreased air movement throughout) Heart: Regular Rate, No Murmurs Abdomen: Normal Bowel Sounds, Soft Neuro: Normal Speech Psych/Mental Status: Mood NL Results/Procedures Lab Laboratory Tests 10/08/21 12:24: Glucometer 142H 10/08/21 15:40: Blood Gas Puncture Site RBRA, Blood Gas Patient Temperature 36.8, Arterial Blood pH 7.48H, Arterial Blood Partial Pressure CO2 32L, Arterial Blood Partial Pressure O2 59L, Arterial Blood HCO3 24, Arterial Blood Total CO2 25.0, Arterial Blood Oxygen Saturation 89L, Arterial Blood Base Excess 0.8, To Test POS, Blood Gas Ventilator Setting NO, Blood Gas Inspired Oxygen 40L, C-Reactive Protein High Sensitivity 11.80H 10/08/21 17:24: Glucometer 139H 10/08/21 20:04: Glucometer 116H 10/09/21 05:34: White Blood Count 9.3, Red Blood Count 5.40, Hemoglobin 15.3, Hematocrit 46, Mean Corpuscular Volume 85, Mean Corpuscular Hemoglobin 28, Mean Corpuscular Hemoglobin Concent 33, Red Cell Distribution Width 13.2, Platelet Count 164, Mean Platelet Volume 10.5, Immature Granulocyte % (Auto) 5, Neutrophils (%) (Auto) 81H, Lymphocytes (%) (Auto) 9L, Monocytes (%) (Auto) 4, Eosinophils (%) (Auto) 1, Basophils (%) (Auto) 0, Neutrophils # (Auto) 7.5, Lymphocytes # (Auto) 0.8L, Monocytes # (Auto) 0.4, Eosinophils # (Auto) 0.1, Basophils # (Auto) 0.0, Immature Granulocyte # (Auto) 0.5H, Neutrophils % (Manual) 87, Lymphocytes % (Manual) 4, Monocytes % (Manual) 5, Metamyelocytes % 1, Myelocytes % 1, Band Neutrophils 2, Blood Morphology Comment NORMAL, Sodium Level 139, Potassium Level 4.0, Chloride Level 104, Carbon Dioxide Level 21, Anion Gap 14, Blood Urea Nitrogen 28H, Creatinine 0.74, Estimat Glomerular Filtration Rate 111, BUN/Creatinine Ratio 38, Glucose Level 92, Calcium Level 8.3L, Phosphorus Level 3.2, Magnesium Level 2.5H, Total Bilirubin 0.6, Direct Bilirubin 0.3, Indirect Bilirubin 0.3, Aspartate Amino Transf (AST/SGOT) 32, Alanine Aminotransferase (ALT/SGPT) 22, Alkaline Phosphatase 77, Total Protein 6.4, Albumin 3.1L Microbiology 10/07/21 Gram Stain - Final, Resulted 10/07/21 Sputum Culture - Preliminary, Resulted Usual upper respiratory frida 10/06/21 Blood Culture - Preliminary, Resulted No growth Assessment/Plan Assessment/Plan (1) Acute respiratory failure due to COVID-19 Status: Acute Assessment & Plan: Currently requiring high FiO2, will recheck CRP and if increasing, will give Actemra. Continue dexamethasone. Remdesevir started per ICU. D dimer elevated, CTA negative for PE. 10/09- s/p Actemra, continue dexamethasone and remdesevir. Still requiring 100% FiO2. (2) Pneumonia due to COVID-19 virus Status: Acute (3) Depression Status: Chronic Assessment & Plan: Resume home SSRI (4) Hypertension Status: Chronic Assessment & Plan: Resume home lisinopril 10/09 increase lisinopril to 20 mg daily (5) Hyperlipidemia Status: Chronic (6) Liver mass, right lobe Status: Acute Assessment & Plan: Seen incidentally on chest CT, needs non-urgent CT liver protocol for follow up. (7) DVT prophylaxis Status: Acute Assessment & Plan: Enoxaparin NELY NEGRO MD Oct 09, 2021 10:04
[2021-10-09] MEDS: REMDESIVIR INJ 100 MG in NS (IVPB) 230 ML IV SCH (10:54)
--- NOTE | 2021-10-09 11:57 | Tele-ICU Progress Note ---
Subjective Date Seen by a Provider: Oct 09, 2021 Time Seen by a Provider: 11:57 Sepsis Event Evaluation Height, Weight, BMI Height: 5'10.00" Weight: 182lbs. 0.0oz. 82.118888ff; 25.79 BMI Method: Exam Exam Patient acknowledged, consented, and participated in this virtual visit which was conducted using real time audio/video Vital Signs Date Time Temp Pulse Resp B/P (MAP) Pulse Ox O2 Delivery O2 Flow Rate FiO2 10/09/21 11:45 36.8 10/09/21 11:00 105 10 87 Vapotherm 40.00 100.00 10/09/21 10:00 93 23 175/112 (133) 88 Vapotherm 40.00 100.00 10/09/21 09:00 77 25 157/94 (115) 91 Vapotherm 40.00 100.00 10/09/21 08:00 87 24 158/98 (118) 86 Vapotherm 40.00 100.00 10/09/21 07:45 36.5 10/09/21 07:13 91 Vapotherm 40.00 100 10/09/21 07:00 78 10/09/21 07:00 71 26 157/92 (113) 91 Vapotherm 40.00 100.00 10/09/21 06:00 84 24 158/98 (118) Vapotherm 40.00 100.00 10/09/21 05:00 88 13 159/103 (121) 89 Vapotherm 40.00 100.00 10/09/21 04:00 74 17 144/88 (106) 94 Vapotherm 40.00 100.00 10/09/21 04:00 36.6 10/09/21 04:00 93 Vapotherm 40.00 100 10/09/21 03:00 84 26 154/88 (110) 90 Vapotherm 40.00 100.00 10/09/21 02:48 87 Vapotherm 40.00 100 10/09/21 02:00 67 24 152/101 (123) 92 Vapotherm 40.00 100.00 10/09/21 01:05 70 10/09/21 01:00 73 27 152/91 (107) 95 Vapotherm 40.00 100.00 10/09/21 00:00 69 29 150/94 (112) 90 Vapotherm 40.00 100.00 12/14/21 00:00 96 Vapotherm 40.00 100 10/09/21 00:00 36.1 10/08/21 23:00 70 137/90 (106) 97 Vapotherm 40.00 100.00 10/08/21 22:00 89 30 157/90 (110) 85 Vapotherm 40.00 100.00 10/08/21 21:51 92 Vapotherm 40.00 100 10/08/21 21:00 89 31 176/107 (129) 87 Vapotherm 40.00 100.00 10/08/21 20:00 90 Vapotherm 40.00 80 10/08/21 20:00 36.7 40.00 100.00 10/08/21 20:00 93 Vapotherm 40.00 100 10/08/21 20:00 70 22 160/96 (114) 93 Vapotherm 40.00 100.00 10/08/21 19:00 71 23 174/99 (121) 91 Vapotherm 40.00 100.00 10/08/21 19:00 71 10/08/21 19:00 Vapotherm 40.00 100.00 10/08/21 18:00 78 23 159/95 (123) 97 Vapotherm 35.00 100.00 10/08/21 17:45 88 26 89 Vapotherm 35.00 100.00 10/08/21 17:30 89 20 92 Vapotherm 35.00 100.00 10/08/21 17:15 96 25 89 Vapotherm 35.00 100.00 10/08/21 17:00 86 22 92 Vapotherm 35.00 100.00 10/08/21 16:45 85 23 90 Vapotherm 35.00 100.00 10/08/21 16:30 88 22 90 Vapotherm 35.00 100.00 10/08/21 16:19 36.1 10/08/21 16:15 89 21 90 Vapotherm 35.00 100.00 10/08/21 16:01 90 Vapotherm 40.00 80 10/08/21 16:00 89 20 163/96 (121) 86 Vapotherm 35.00 100.00 10/08/21 15:45 95 19 92 Vapotherm 35.00 100.00 10/08/21 15:30 98 22 94 Vapotherm 35.00 100.00 10/08/21 15:15 89 21 93 Vapotherm 35.00 100.00 10/08/21 15:00 90 20 153/92 (113) 91 Vapotherm 35.00 100.00 10/08/21 14:49 94 Vapotherm 40.00 80 10/08/21 14:45 83 20 93 Vapotherm 35.00 100.00 10/08/21 14:30 74 22 91 Vapotherm 35.00 100.00 10/08/21 14:00 95 27 90 Vapotherm 35.00 100.00 10/08/21 14:00 95 27 90 10/08/21 13:45 75 27 89 Vapotherm 35.00 100.00 10/08/21 13:30 101 30 10/08/21 13:15 92 24 87 Vapotherm 35.00 100.00 10/08/21 13:00 73 18 154/91 (112) 91 Vapotherm 35.00 100.00 10/08/21 12:54 37.0 10/08/21 12:45 82 23 93 Vapotherm 35.00 100.00 10/08/21 12:30 88 6 92 Vapotherm 35.00 100.00 10/08/21 12:15 83 18 94 Vapotherm 35.00 100.00 10/08/21 12:14 87 10/08/21 12:00 95 20 144/95 (111) 94 Vapotherm 35.00 100.00 I & O 10/09/21 07:00 Intake Total 1400 ml Output Total 1300 ml Balance 100 ml Height & Weight Height: 5'10.00" Weight: 182lbs. 0.0oz. 82.829292mm; 25.79 BMI Method: General Appearance: Anxious, Mild Distress HEENT: PERRL/EOMI, Normal ENT Inspection, Other (dry mucous membranes) Neck: Normal Inspection, Supple Respiratory: No Accessory Muscle Use, No Respiratory Distress, Other (Coarse breath sounds throughout with fine rales to the mid lung linda bilaterally no wheezing appreciated.) Cardiovascular: Regular Rate, Rhythm, No Edema, No Gallop, No JVD, No Murmur, Normal Peripheral Pulses Capillary Refill: Less Than 3 Seconds Peripheral Pulses: 1+ Dorsalis Pedis (R), 1+ Left Dors-Pedis (L); 2+ Radial Pulses (R), 2+ Radial Pulses (L) Extremity: Normal Inspection, Normal Range of Motion, Non Tender, No Calf Tenderness, No Pedal Edema Neurologic/Psychiatric: Alert, Oriented x3, No Motor/Sensory Deficits Skin: Normal Color, Warm/Dry Results Lab Laboratory Tests 10/08/21 00:56 10/09/21 05:34 Assessment/Plan Assessment/Plan (Tele-ICU Physician , Progress Note ) Available chart/ vitals / labs / Images reviewed Video assessment done using teleICU camera, rest of exam as per RN Discussed with RN , EXAM PER RN Events overnight : Afebrile I/O = Drips: Pressors: , hemodynamically stable Consultants: Hospital course: (10/08) 77 y/o female admitted for COVID+, transfer from other facility - , VT 20L 70% A/P AHRF / ARDS due to severe COVID19 ( CTA neg for pe 10/07 - in other facility , reportedly - did not see report personally - VT 20L 70% , BIPAP not tried PRN -VT40/ 100 %- daphne risk for intubation - with try bipap - repeat ddimer , pct and cxr -prone position if able - conservative fluid strategy (aim for even or negative fluid balance QFQW-Rftpnsgahym-2/COVID-19 PNA ( Symptom onset unknown now DX unvaccinted --Remdesivir ? --Dexamethasone -Hypercoagulable state -> lovenox ppx dose , CTA neg for pe 10/07 - in other facility , reportedly Monitor for superimposed bact PNA - nl PCT , OFF abx Hyperglycemia - ISS , close f/up on steroids Lines : periph Central Line Necessity Reviewed) Hurd: 10/08 OG: Nutrition: po Analgesia: Anxiety/ delirium VTE Prophylaxis: steve 40 Stress Ulcer Prophylaxis: po Plans in collaboration with bedside consultants and IM MDs. Discussed with RN to reach out if any questions or concerns A total of 35 minutes of critical care time was devoted to this patient today, required to treat and/or prevent further deterioration of critical care condition ( as above ) . JOHN CROW MD Oct 09, 2021 11:57
[2021-10-09] MEDS ORDERED: DexMEDEtomidine 250 ML DRIP 250 ML IV ONE (12:25)
[2021-10-09] MEDS: DexMEDEtomidine 250 ML DRIP 250 ML IV SCH (12:25)
[2021-10-09] MEDS ORDERED: DOXY100C5 PO (13:46)
[2021-10-09] MEDS ORDERED: ONDA4TAB11 PO (13:46)
[2021-10-09] MEDS ORDERED: TRAZ-227 PO (13:46)
[2021-10-09] MEDS ORDERED: LOVA40TA2 PO (13:46)
[2021-10-09] MEDS ORDERED: FLUT9.9S NSEACH (13:46)
[2021-10-09] MEDS ORDERED: PRD20T PO (13:46)
[2021-10-09] MEDS: ENOXAPARIN 40 MG/0.4 ML (LOVENOX) SYR SC SCH (18:42)
[2021-10-09] MEDS: AtorvaSTATin TABLET 10 MG TABLET PO SCH (22:14)
[2021-10-09] MEDS: traZODone 50 MG (DESYREL) TAB PO SCH (22:14)
[2021-10-09] MEDS: ALPRAZolam 0.5 MG (XANAX) TAB PO PRN (22:18)
[2021-10-10] VITALS (22 sets, daily range): BP systolic 84–137; BP diastolic 56–95
[2021-10-10] MEDS: inSUlin ASPART (NovoLOG) 1 UNIT/0.01 ML (CHARGE PER UNIT) SQ SCH ×4 (02:12→18:46)
[2021-10-10] MEDS: RT-ALBUTEROL HFA 8.5 GM INHALER IH SCH ×4 (02:48→19:06)
[2021-10-10 05:34] LABS: BASOPHILS % (AUTO) 0 % (0-10); EOSINOPHILS # (AUTO) 0.1 10^3/uL (0.0-0.3); EOSINOPHILS % (AUTO) 1 % (0-10); HEMATOCRIT 44 % (40-54); HEMOGLOBIN 14.5 g/dL (13.3-17.7); LYMPHOCYTES % (AUTO) 8 % (12-44); MEAN CORPUSCULAR HEMOGLOBIN 28 pg (25-34); MEAN CORPUSCULAR HGB CONC 33 g/dL (32-36); MEAN CORPUSCULAR VOLUME 86 fL (80-99); MEAN PLATELET VOLUME 11.2 fL (9.0-12.2); MONOCYTES # (AUTO) 0.5 10^3/uL (0.0-1.0); MONOCYTES % (AUTO) 4 % (0-12); NEUTROPHILS % (AUTO) 81 % (42-75); PLATELET COUNT 141 10^3/uL (130-400); WHITE BLOOD COUNT 12.4 10^3/uL (4.3-11.0)
[2021-10-10 05:42] LABS: POTASSIUM 4.1 MMOL/L (3.6-5.0)
[2021-10-10 05:48] LABS: CREATININE SERUM 0.83 MG/DL (0.60-1.30); PHOSPHORUS 4.2 MG/DL (2.3-4.7)
[2021-10-10 05:51] LABS: MAGNESIUM 2.5 MG/DL (1.6-2.4)
[2021-10-10] MEDS: POTASSIUM CL 10MEQ/50ML IVPB 50 ML IV SCH (06:03)
[2021-10-10] MEDS: MAGNESIUM 1 GM/100 ML IVPB 100 ML IV SCH (06:04)
[2021-10-10] MEDS: KCL 20 MEQ TAB (K-DUR) PO SCH (06:04)
[2021-10-10] MEDS: ACYCLOVIR 400 MG TABLET (ZOVIRAX) PO SCH ×2 (08:36→18:32)
--- NOTE | 2021-10-10 09:16 | Tele-ICU Progress Note ---
Subjective Date Seen by a Provider: Oct 10, 2021 Time Seen by a Provider: 09:16 Sepsis Event Evaluation Height, Weight, BMI Height: 5'10.00" Weight: 182lbs. 0.0oz. 82.891456rt; 25.79 BMI Method: Exam Exam Patient acknowledged, consented, and participated in this virtual visit which was conducted using real time audio/video Vital Signs Date Time Temp Pulse Resp B/P (MAP) Pulse Ox O2 Delivery O2 Flow Rate FiO2 10/10/21 07:49 36.4 10/10/21 07:30 66 24 91 100.00 10/10/21 04:00 35.9 10/10/21 04:00 88 NIV Bilevel 100 10/10/21 03:00 64 21 104/83 (90) 94 NIV Bilevel 100.00 10/10/21 02:48 64 25 91 100.00 10/10/21 02:00 71 12 97/65 (71) 93 NIV Bilevel 100.00 10/10/21 01:00 65 21 84/64 (70) 90 NIV Bilevel 100.00 10/10/21 01:00 66 10/10/21 00:08 35.5 10/10/21 00:00 67 25 92/56 (68) 92 NIV Bilevel 100.00 10/10/21 00:00 89 NIV Bilevel 100 10/09/21 23:10 NIV Bilevel 100.00 10/09/21 23:00 69 36 112/69 (79) 86 Vapotherm 40.00 100.00 10/09/21 22:07 90 Vapotherm 40.00 100 10/09/21 22:00 67 24 112/71 (83) 96 Vapotherm 40.00 100.00 10/09/21 21:00 71 24 102/71 (82) 93 Vapotherm 40.00 100.00 10/09/21 20:00 71 24 102/61 (72) 91 Vapotherm 40.00 100.00 10/09/21 20:00 89 NIV Bilevel 100 10/09/21 19:06 84 10/09/21 19:00 89 27 130/84 (99) 83 Vapotherm 40.00 100.00 10/09/21 17:00 71 25 126/88 (101) 91 Vapotherm 40.00 100.00 10/09/21 16:01 36.5 10/09/21 16:00 92 NIV Bilevel 100 10/09/21 16:00 84 29 130/83 (99) 91 Vapotherm 40.00 100.00 10/09/21 15:02 86 27 90 100.00 10/09/21 15:00 89 30 158/96 (116) 88 Vapotherm 40.00 100.00 10/09/21 14:00 89 25 156/98 (117) 92 Vapotherm 40.00 100.00 10/09/21 13:00 87 17 164/105 (124) 93 Vapotherm 40.00 100.00 10/09/21 12:59 85 10/09/21 12:25 90 10/09/21 12:00 92 NIV Bilevel 100 10/09/21 12:00 84 29 152/100 (117) 91 Vapotherm 40.00 100.00 10/09/21 11:45 36.8 10/09/21 11:00 105 10 87 Vapotherm 40.00 100.00 10/09/21 10:00 93 23 175/112 (133) 88 Vapotherm 40.00 100.00 I & O 10/10/21 07:00 Intake Total 2450 ml Output Total 2100 ml Balance 350 ml Height & Weight Height: 5'10.00" Weight: 182lbs. 0.0oz. 82.342632ob; 25.79 BMI Method: General Appearance: Anxious, Mild Distress HEENT: PERRL/EOMI, Normal ENT Inspection, Other (dry mucous membranes) Neck: Normal Inspection, Supple Respiratory: No Accessory Muscle Use, No Respiratory Distress, Other (Coarse breath sounds throughout with fine rales to the mid lung linda bilaterally no wheezing appreciated.) Cardiovascular: Regular Rate, Rhythm, No Edema, No Gallop, No JVD, No Murmur, Normal Peripheral Pulses Capillary Refill: Less Than 3 Seconds Peripheral Pulses: 1+ Dorsalis Pedis (R), 1+ Left Dors-Pedis (L); 2+ Radial Pulses (R), 2+ Radial Pulses (L) Extremity: Normal Inspection, Normal Range of Motion, Non Tender, No Calf Tenderness, No Pedal Edema Neurologic/Psychiatric: Alert, Oriented x3, No Motor/Sensory Deficits Skin: Normal Color, Warm/Dry Results Lab Laboratory Tests 10/09/21 05:34 12/15/21 05:22 Assessment/Plan Assessment/Plan (Tele-ICU Physician , Progress Note ) Available chart/ vitals / labs / Images reviewed Video assessment done using teleICU camera, rest of exam as per RN Discussed with RN , EXAM PER RN Events overnight : Afebrile I/O = even Drips: Pressors: , hemodynamically stable Consultants: Hospital course: (10/08) 77 y/o female admitted for COVID+, transfer from other facility - , VT 20L 70% 10/09 changed to BIPAP 10/10 Bipap 100% _ precedex 0.4 A/P AHRF / ARDS due to severe COVID19 ( CTA neg for pe 10/07 - in other facility , reportedly - did not see report personally - VT 20L 70% , BIPAP not tried PRN -Bipap 100% - repeat ddimer , pct and cxr -prone position if able - conservative fluid strategy (aim for even or negative fluid balance AGLG-Bwjlcykcntf-9/COVID-19 PNA ( Symptom onset unknown now DX unvaccinted --Remdesivir ? --Dexamethasone - chanhged to 10 qd with wheexing 10/10 -Hypercoagulable state -> lovenox ppx dose , CTA neg for pe 10/[address] 10/06 - will tepeat cxr Monitor for superimposed bact PNA - nl PCT , OFF abx Hyperglycemia - ISS , close f/up on steroids Lines : periph Central Line Necessity Reviewed) Hurd: 10/08 OG: Nutrition: po Analgesia: Anxiety/ delirium VTE Prophylaxis: steve 40 Stress Ulcer Prophylaxis: po Plans in collaboration with bedside consultants and IM MDs. Discussed with RN to reach out if any questions or concerns A total of 35 minutes of critical care time was devoted to this patient today, required to treat and/or prevent further deterioration of critical care condition ( as above ) . JOHN CROW MD Oct 10, 2021 09:16
[2021-10-10] MEDS: amLODIPine 5 MG (NORVASC) TAB PO SCH (09:18)
[2021-10-10] MEDS: lisINopril 20 MG (PRINIVIL) TABLET PO SCH (09:19)
--- NOTE | 2021-10-10 09:55 | Diagnostic Imaging Report ---
INDICATION: Covid 19 pneumonia. TIME OF EXAM: 9:36 AM. COMPARISON: Correlation is made with the prior chest of 10/06/2021. FINDINGS: The heart size is stable. The bilateral pulmonary infiltrates have increased when compared with the examination from 4 days earlier, particularly throughout the right lung. There is no effusion or pneumothorax identified. IMPRESSION: Increasing bilateral pulmonary infiltrates since the study of 4 days earlier. Dictated by: Dictated on workstation # [id number]
[2021-10-10] MEDS: REMDESIVIR INJ 100 MG in NS (IVPB) 230 ML IV SCH ×2 (10:51→20:45)
--- NOTE | 2021-10-10 11:12 | Progress Note ---
Subjective Subjective/Events-last exam Afebrile, required bipap overnight, but he does feel better this morning than yesterday, currently with SpO2 around 83% on vapotherm after just eating breakfast, about ready to restart bipap. Objective Exam Last Set of Vital Signs Vital Signs Date Time Temp Pulse Resp B/P (MAP) Pulse Ox O2 Delivery O2 Flow Rate FiO2 10/10/21 10:56 74 26 91 100.00 10/10/21 08:45 NIV Bilevel 100 10/10/21 07:49 36.4 10/10/21 03:00 104/83 (90) Capillary Refill : Less Than 3 Seconds I&O Intake and Output 10/09/21 23:59 Intake Total 1300 ml Output Total 1275 ml Balance 25 ml Intake Oral 1300 ml Output Urine Total 1275 ml # Bowel Movements 1 General: Alert, No Acute Distress Lungs: Other (decreased air movement throughout) Abdomen: Normal Bowel Sounds, Soft Extremities: No Edema Neuro: Normal Speech Psych/Mental Status: Mood NL Results/Procedures Lab Laboratory Tests 10/09/21 11:19: Glucometer 120H 10/09/21 18:27: Glucometer 149H 10/10/21 05:22: White Blood Count 12.4H, Red Blood Count 5.11, Hemoglobin 14.5, Hematocrit 44, Mean Corpuscular Volume 86, Mean Corpuscular Hemoglobin 28, Mean Corpuscular Hemoglobin Concent 33, Red Cell Distribution Width 13.3, Platelet Count 141, Mean Platelet Volume 11.2, Immature Granulocyte % (Auto) 7, Neutrophils (%) ( Auto) 81H, Lymphocytes (%) (Auto) 8L, Monocytes (%) (Auto) 4, Eosinophils (%) (Auto) 1, Basophils (%) (Auto) 0, Neutrophils # (Auto) 10.0H, Lymphocytes # (Auto) 1.0, Monocytes # (Auto) 0.5, Eosinophils # (Auto) 0.1, Basophils # (Auto) 0.0, Immature Granulocyte # (Auto) 0.9H, Sodium Level 136, Potassium Level 4.1, Chloride Level 102, Carbon Dioxide Level 22, Anion Gap 12, Blood Urea Nitrogen 36H, Creatinine 0.83, Estimat Glomerular Filtration Rate 97, BUN/Creatinine Ratio 43, Glucose Level 107H, Calcium Level 8.0L, Phosphorus Level 4.2, Magnesium Level 2.5H Microbiology 10/07/21 Gram Stain - Final, Complete 10/07/21 Sputum Culture - Final, Complete Usual upper respiratory frida YEAST 10/06/21 Blood Culture - Preliminary, Resulted No growth Assessment/Plan Assessment/Plan (1) Acute respiratory failure due to COVID-19 Status: Acute Assessment & Plan: Currently requiring high FiO2, will recheck CRP and if increasing, will give Actemra. Continue dexamethasone. Remdesevir started per ICU. D dimer elevated, CTA negative for PE. 10/09- s/p Actemra, continue dexamethasone and remdesevir. Still requiring 100% FiO2. 10/10- on and off bipap, continue to monitor closely, continue dexamethasone and remdesevir (2) Pneumonia due to COVID-19 virus Status: Acute (3) Depression Status: Chronic Assessment & Plan: Resume home SSRI (4) Hypertension Status: Chronic Assessment & Plan: Resume home lisinopril 10/09 increase lisinopril to 20 mg daily (5) Hyperlipidemia Status: Chronic (6) Liver mass, right lobe Status: Acute Assessment & Plan: Seen incidentally on chest CT, needs non-urgent CT liver protocol for follow up. (7) DVT prophylaxis Status: Acute Assessment & Plan: Enoxaparin NELY NEGRO MD Oct 10, 2021 11:12
[2021-10-10] MEDS: guaiFENesin/DM (ROBITUSSIN DM) 10 ML UDC PO PRN ×2 (13:20→18:32)
[2021-10-10] MEDS: ENOXAPARIN 40 MG/0.4 ML (LOVENOX) SYR SC SCH (18:32)
[2021-10-10] MEDS: ALPRAZolam 0.5 MG (XANAX) TAB PO PRN (18:32)
[2021-10-10] MEDS: AtorvaSTATin TABLET 10 MG TABLET PO SCH (20:46)
[2021-10-10] MEDS: traZODone 50 MG (DESYREL) TAB PO SCH (20:46)
[2021-10-11] VITALS (24 sets, daily range): BP systolic 107–166; BP diastolic 70–117
[2021-10-11] MEDS: inSUlin ASPART (NovoLOG) 1 UNIT/0.01 ML (CHARGE PER UNIT) SQ SCH ×4 (00:04→17:08)
[2021-10-11] MEDS: guaiFENesin/DM (ROBITUSSIN DM) 10 ML UDC PO PRN ×4 (00:18→21:30)
[2021-10-11] MEDS: RT-ALBUTEROL HFA 8.5 GM INHALER IH SCH ×4 (02:45→21:45)
[2021-10-11 05:10] LABS: BASOPHILS % (AUTO) 0 % (0-10); EOSINOPHILS # (AUTO) 0.1 10^3/uL (0.0-0.3); EOSINOPHILS % (AUTO) 1 % (0-10); HEMATOCRIT 45 % (40-54); HEMOGLOBIN 15.1 g/dL (13.3-17.7); LYMPHOCYTES % (AUTO) 6 % (12-44); MEAN CORPUSCULAR HEMOGLOBIN 29 pg (25-34); MEAN CORPUSCULAR HGB CONC 34 g/dL (32-36); MEAN CORPUSCULAR VOLUME 85 fL (80-99); MEAN PLATELET VOLUME 11.1 fL (9.0-12.2); MONOCYTES # (AUTO) 0.7 10^3/uL (0.0-1.0); MONOCYTES % (AUTO) 4 % (0-12); NEUTROPHILS # (AUTO) 12.9 10^3/uL (1.8-7.8); NEUTROPHILS % (AUTO) 83 % (42-75); PLATELET COUNT 139 10^3/uL (130-400); WHITE BLOOD COUNT 15.7 10^3/uL (4.3-11.0)
[2021-10-11 05:23] LABS: POTASSIUM 4.2 MMOL/L (3.6-5.0)
[2021-10-11 05:28] LABS: CREATININE SERUM 0.75 MG/DL (0.60-1.30); PHOSPHORUS 3.3 MG/DL (2.3-4.7)
[2021-10-11 05:31] LABS: MAGNESIUM 2.3 MG/DL (1.6-2.4)
[2021-10-11 05:47] LABS: EOSINOPHILS % (MANUAL) 1 %; LYMPHOCYTES % (MANUAL) 8 %; MONOCYTES % (MANUAL) 6 %; NEUTROPHILS % (MANUAL) 85 %; PLATELET CLUMPS NO; RBC MORPH NORMAL
--- NOTE | 2021-10-11 06:05 | Diagnostic Imaging Report ---
INDICATION: Hypoxia Single AP view of the chest is obtained with comparison made to the study of one day earlier. There is continued diffuse bilateral airspace disease. There is a somewhat peripheral preponderance. Overall aeration of the lungs has shown mild improvement. No pneumothorax is identified. There is no evidence of significant pleural fluid. IMPRESSION: Predominantly peripheral infiltrates in both lungs. There has been mild improvement when compared to previous study. Dictated by: Dictated on workstation # [id number]
[2021-10-11] MEDS: KCL 20 MEQ TAB (K-DUR) PO SCH (06:34)
[2021-10-11] MEDS: MAGNESIUM 1 GM/100 ML IVPB 100 ML IV SCH (06:34)
[2021-10-11] MEDS: POTASSIUM CL 10MEQ/50ML IVPB 50 ML IV SCH (06:34)
[2021-10-11] MEDS: ACYCLOVIR 400 MG TABLET (ZOVIRAX) PO SCH ×2 (08:01→18:08)
[2021-10-11] MEDS: ALPRAZolam 0.5 MG (XANAX) TAB PO PRN ×2 (08:02→16:20)
[2021-10-11] MEDS: ACETAMINOPHEN 500 MG TAB (TYLENOL) PO PRN ×2 (08:02→21:30)
[2021-10-11] MEDS: amLODIPine 5 MG (NORVASC) TAB PO SCH (08:05)
[2021-10-11] MEDS: lisINopril 20 MG (PRINIVIL) TABLET PO SCH (08:05)
--- NOTE | 2021-10-11 09:12 | Tele-ICU Progress Note ---
Subjective Date Seen by a Provider: Oct 11, 2021 Time Seen by a Provider: 09:11 Sepsis Event Evaluation Height, Weight, BMI Height: 5'10.00" Weight: 182lbs. 0.0oz. 82.173848zj; 25.79 BMI Method: Exam Exam Patient acknowledged, consented, and participated in this virtual visit which was conducted using real time audio/video Vital Signs Date Time Temp Pulse Resp B/P (MAP) Pulse Ox O2 Delivery O2 Flow Rate FiO2 10/11/21 07:45 36.8 10/11/21 07:45 90 Vapotherm 35.00 80 10/11/21 07:22 91 Vapotherm 35.00 95 10/11/21 07:00 77 10/11/21 06:35 NIV Bilevel 75.00 10/11/21 06:00 66 15 123/74 (90) 99 NIV Bilevel 100.00 10/11/21 05:00 61 18 119/73 (88) 99 NIV Bilevel 100.00 10/11/21 04:00 64 17 117/78 (91) 98 NIV Bilevel 100.00 10/11/21 03:32 99 NIV Bilevel 75 10/11/21 03:15 36.3 72 21 162/93 (116) 98 NIV Bilevel 75.00 10/11/21 03:00 66 21 98 NIV Bilevel 100.00 10/11/21 02:46 64 22 98 85.00 10/11/21 02:00 70 21 107/70 (82) 100 NIV Bilevel 100.00 10/11/21 01:34 NIV Bilevel 100.00 10/11/21 01:00 67 20 107/70 (82) 100 Vapotherm 20.00 55.00 10/11/21 00:59 100 Vapotherm 20.00 55.00 10/11/21 00:28 66 10/11/21 00:00 67 20 116/80 (92) 100 Vapotherm 40.00 100.00 10/10/21 23:38 100 Vapotherm 100 10/10/21 23:08 36.0 10/10/21 23:00 71 27 98 Vapotherm 40.00 100.00 10/10/21 22:00 73 21 123/75 (91) 91 Vapotherm 40.00 100.00 12/15/21 21:00 75 19 127/82 (97) 85 Vapotherm 40.00 100.00 10/10/21 20:30 86 Vapotherm 40.00 10/10/21 20:00 88 Vapotherm 100 10/10/21 20:00 69 26 131/60 (83) 95 Vapotherm 40.00 100.00 10/10/21 19:10 36.2 10/10/21 19:06 79 37 93 100.00 10/10/21 19:00 72 18 127/82 (97) 93 Vapotherm 40.00 100.00 10/10/21 19:00 72 10/10/21 17:00 74 24 135/95 (107) 94 10/10/21 16:56 77 12 93 10/10/21 16:11 36.0 10/10/21 16:00 93 NIV Bilevel 100 10/10/21 16:00 76 27 127/84 (99) 92 10/10/21 15:56 79 24 92 10/10/21 15:01 84 27 91 100.00 10/10/21 15:00 82 34 137/80 (95) 90 10/10/21 14:56 76 25 90 10/10/21 14:00 82 26 127/81 (94) 93 10/10/21 13:56 82 26 93 10/10/21 13:00 73 10/10/21 12:00 93 NIV Bilevel 100 10/10/21 12:00 71 25 122/81 (95) 92 NIV Bilevel 100.00 10/10/21 11:42 36.6 10/10/21 11:00 78 27 117/81 (93) 90 NIV Bilevel 100.00 10/10/21 10:56 74 26 91 100.00 10/10/21 10:00 68 24 108/66 (80) 90 NIV Bilevel 100.00 I & O 10/11/21 07:00 Intake Total 2790 ml Output Total 2150 ml Balance 640 ml Height & Weight Height: 5'10.00" Weight: 182lbs. 0.0oz. 82.191098yg; 25.79 BMI Method: General Appearance: Anxious, Mild Distress HEENT: PERRL/EOMI, Normal ENT Inspection, Other (dry mucous membranes) Neck: Normal Inspection, Supple Respiratory: No Accessory Muscle Use, No Respiratory Distress, Other (Coarse b reath sounds throughout with fine rales to the mid lung linda bilaterally no wheezing appreciated.) Cardiovascular: Regular Rate, Rhythm, No Edema, No Gallop, No JVD, No Murmur, Normal Peripheral Pulses Capillary Refill: Less Than 3 Seconds Peripheral Pulses: 1+ Dorsalis Pedis (R), 1+ Left Dors-Pedis (L); 2+ Radial Pulses (R), 2+ Radial Pulses (L) Extremity: Normal Inspection, Normal Range of Motion, Non Tender, No Calf Tenderness, No Pedal Edema Neurologic/Psychiatric: Alert, Oriented x3, No Motor/Sensory Deficits Skin: Normal Color, Warm/Dry Results Lab Laboratory Tests 10/10/21 05:22 10/11/21 04:40 Assessment/Plan Assessment/Plan (Tele-ICU Physician , Progress Note ) Available chart/ vitals / labs / Images reviewed Video assessment done using teleICU camera, rest of exam as per RN Discussed with RN , EXAM PER RN Events overnight : Afebrile I/O = even Drips: Pressors: , hemodynamically stable Consultants: Hospital course: (10/08) 77 y/o female admitted for COVID+, transfer from other facility - , VT 20L 70% 10/09 changed to BIPAP 10/10 Bipap 100% _ precedex 0.4 10/11 - VT 35/80% prn bipap , precedex 0.4 A/P AHRF / ARDS due to severe COVID19 ( CTA neg for pe 10/07 - in other facility , reportedly - did not see report personally - VT 35/80% prn bipap , precedex 0.4 - repeat ddimer , pct and cxr -prone position if able - conservative fluid strategy (aim for even or negative fluid balance _ PO intake 3L - monitor [id number]/COVID-19 PNA ( Symptom onset unknown now DX unvaccinted --Remdesivir ? --Dexamethasone - chanhged to 10 qd with wheexing 10/10 -Hypercoagulable state -> lovenox ppx dose , CTA neg for pe 10/06 - DDIMER > 20- 10/11 - US LE Pneumomediastinum on ct 10/06 - not seen on cxr f/up Monitor for superimposed bact PNA - nl PCT , OFF abx Hyperglycemia - ISS , close f/up on steroids Lines : periph Central Line Necessity Reviewed) Hurd: 10/08 OG: Nutrition: po Analgesia: Anxiety/ delirium = precedex VTE Prophylaxis: steve 40 Stress Ulcer Prophylaxis: po Plans in collaboration with bedside consultants and IM MDs. Discussed with RN to reach out if any questions or concerns A total of 35 minutes of critical care time was devoted to this patient today, required to treat and/or prevent further deterioration of critical care condition ( as above ) . JOHN CROW MD Oct 11, 2021 09:12
--- NOTE | 2021-10-11 09:21 | Progress Note ---
Subjective Subjective/Events-last exam Feeling well except right shoulder/chest area aching like pulled muscle. Also has calf tightness. US in room obtaining bilateral LE dopplers for possible DVT now. Objective Exam Last Set of Vital Signs Vital Signs Date Time Temp Pulse Resp B/P (MAP) Pulse Ox O2 Delivery O2 Flow Rate FiO2 10/11/21 07:45 36.8 10/11/21 07:45 90 Vapotherm 35.00 80 10/11/21 07:00 77 10/11/21 06:00 15 123/74 (90) Capillary Refill : Less Than 3 Seconds I&O Intake and Output 10/11/21 00:00 Intake Total 3490 ml Output Total 2450 ml Balance 1040 ml Intake Oral 3240 ml IV Total 250 ml Output Urine Total 2450 ml # Bowel Movements 1 General: Alert, No Acute Distress Lungs: Normal Air Movement Heart: Regular Rate, No Murmurs Extremities: No Edema Neuro: Normal Speech Psych/Mental Status: Mood NL Results/Procedures Lab Laboratory Tests 10/10/21 11:37: Glucometer 165H 10/10/21 17:35: Glucometer 156H 10/11/21 00:02: Glucometer 160H 10/11/21 04:40: White Blood Count 15.7H, Red Blood Count 5.29, Hemoglobin 15.1, Hematocrit 45, Mean Corpuscular Volume 85, Mean Corpuscular Hemoglobin 29, Mean Corpuscular Hemoglobin Concent 34, Red Cell Distribution Width 13.1, Platelet Count 139, Mean Platelet Volume 11.1, Immature Granulocyte % (Auto) 6, Neutrophils (%) (Auto) 83H, Lymphocytes (%) (Auto) 6L, Monocytes (%) (Auto) 4, Eosinophils (%) (Auto) 1, Basophils (%) (Auto) 0, Neutrophils # (Auto) 12.9H, Lymphocytes # (Auto) 1.0, Monocytes # (Auto) 0.7, Eosinophils # (Auto) 0.1, Basophils # (Auto) 0.0, Immature Granulocyte # (Auto) 1.0H, Neutrophils % (Manual) 85, Lymphocytes % (Manual) 8, Monocytes % (Manual) 6, Eosinophils % (Manual) 1, Clumped Platelets NO, Blood Morphology Comment NORMAL, D-Dimer > 20.00H, Sodium Level 135, Potassium Level 4.2, Chloride Level 102, Carbon Dioxide Level 22, Anion Gap 11, Blood Urea Nitrogen 30H, Creatinine 0.75, Estimat Glomerular Filtration Rate 109, BUN/Creatinine Ratio 40, Glucose Level 102, Calcium Level 8.0L, Phosphorus Level 3.3, Magnesium Level 2.3, Procalcitonin 0.05 Microbiology 10/07/21 Gram Stain - Final, Complete 10/07/21 Sputum Culture - Final, Complete Usual upper respiratory frida YEAST 10/06/21 Blood Culture - Preliminary, Resulted No growth Assessment/Plan Assessment/Plan (1) Acute respiratory failure due to COVID-19 Status: Acute Assessment & Plan: Currently requiring high FiO2, will recheck CRP and if increasing, will give Actemra. Continue dexamethasone. Remdesevir started per ICU. D dimer elevated, CTA negative for PE. 10/09- s/p Actemra, continue dexamethasone and remdesevir. Still requiring 100% FiO2. 10/10- on and off bipap, continue to monitor closely, continue dexamethasone and remdesevir 10/11- dexamethasone increased to 10 mg yesterday, is tolerating lower FiO2 today, completed remdesevir course and s/p Actemra. (2) Pneumonia due to COVID-19 virus Status: Acute (3) Depression Status: Chronic Assessment & Plan: Resume home SSRI (4) Hypertension Status: Chronic Assessment & Plan: Resume home lisinopril 10/09 increase lisinopril to 20 mg daily (5) Hyperlipidemia Status: Chronic (6) Liver mass, right lobe Status: Acute Assessment & Plan: Seen incidentally on chest CT, needs non-urgent CT liver protocol for follow up. (7) DVT prophylaxis Status: Acute Assessment & Plan: Enoxaparin, US pending for possible DVT NELY NEGRO MD Oct 11, 2021 09:21
--- NOTE | 2021-10-11 10:09 | Diagnostic Imaging Report ---
PROCEDURE: US Venous Lower Ext Igor. TECHNIQUE: Multiple real-time grayscale images were obtained over the lower extremities in various projections, bilaterally. Additional duplex Doppler and color Doppler images were also obtained. INDICATION: Elevated D-dimer. Patient is Covid-19 positive. Right common femoral vein and superficial femoral veins are widely patent. The right popliteal vein is patent. There is thrombus identified in the peroneal veins in the calf. On the left, the left common femoral vein as well as the upper and mid superficial femoral veins are patent. There appears to be thrombus in the lower superficial femoral vein extending into the popliteal vein as well as the calf veins. No fluid collections are seen. IMPRESSION: 1. No evidence of right lower extremity femoral-popliteal DVT. There is thrombus identified in the right peroneal vein in the calf. 2. Left lower extremity DVT with thrombus extending from the lower left femoral vein into the calf veins. Dictated by: Dictated on workstation # [id number]
[2021-10-11] MEDS: ENOXAPARIN 80 MG/0.8 ML (LOVENOX) SYR SC SCH ×2 (10:52→21:30)
[2021-10-11] MEDS: AtorvaSTATin TABLET 10 MG TABLET PO SCH (21:30)
[2021-10-11] MEDS: traZODone 50 MG (DESYREL) TAB PO SCH (21:30)
[2021-10-12] VITALS (26 sets, daily range): BP systolic 91–166; BP diastolic 64–100
[2021-10-12] MEDS: ALPRAZolam 0.5 MG (XANAX) TAB PO PRN ×3 (01:28→17:08)
[2021-10-12] MEDS: guaiFENesin/DM (ROBITUSSIN DM) 10 ML UDC PO PRN ×3 (01:28→21:35)
[2021-10-12] MEDS: RT-ALBUTEROL HFA 8.5 GM INHALER IH SCH ×4 (02:47→21:36)
[2021-10-12 04:38] LABS: BASOPHILS # (AUTO) 0.1 10^3/uL (0.0-0.1); BASOPHILS % (AUTO) 0 % (0-10); EOSINOPHILS % (AUTO) 0 % (0-10); HEMATOCRIT 44 % (40-54); HEMOGLOBIN 15.1 g/dL (13.3-17.7); LYMPHOCYTES # (AUTO) 1.3 10^3/uL (1.0-4.0); LYMPHOCYTES % (AUTO) 7 % (12-44); MEAN CORPUSCULAR HEMOGLOBIN 29 pg (25-34); MEAN CORPUSCULAR HGB CONC 34 g/dL (32-36); MEAN CORPUSCULAR VOLUME 85 fL (80-99); MEAN PLATELET VOLUME 11.4 fL (9.0-12.2); MONOCYTES # (AUTO) 0.8 10^3/uL (0.0-1.0); MONOCYTES % (AUTO) 4 % (0-12); NEUTROPHILS # (AUTO) 14.8 10^3/uL (1.8-7.8); NEUTROPHILS % (AUTO) 79 % (42-75); PLATELET COUNT 150 10^3/uL (130-400); WHITE BLOOD COUNT 18.7 10^3/uL (4.3-11.0)
[2021-10-12 04:51] LABS: POTASSIUM 4.2 MMOL/L (3.6-5.0)
[2021-10-12 04:52] LABS: CALCIUM 8.2 MG/DL (8.5-10.1)
[2021-10-12 04:56] LABS: BAND NEUTROPHILS 8 %; BASOPHILS % (MANUAL) 0 %; EOSINOPHILS % (MANUAL) 0 %; LYMPHOCYTES % (MANUAL) 4 %; MONOCYTES % (MANUAL) 3 %; NEUTROPHILS % (MANUAL) 84 %; PHOSPHORUS 2.7 MG/DL (2.3-4.7); REACTIVE LYMPHOCYTES 1 %
[2021-10-12 04:57] LABS: CREATININE SERUM 0.8 MG/DL (0.60-1.30)
[2021-10-12 04:59] LABS: MAGNESIUM 2.4 MG/DL (1.6-2.4)
[2021-10-12] MEDS: inSUlin ASPART (NovoLOG) 1 UNIT/0.01 ML (CHARGE PER UNIT) SQ SCH ×5 (05:00→21:23)
[2021-10-12] MEDS: CYCLOBENZAPRINE 10 MG (FLEXERIL) TAB PO PRN (05:07)
[2021-10-12] MEDS: MAGNESIUM 1 GM/100 ML IVPB 100 ML IV SCH (05:13)
[2021-10-12] MEDS: KCL 20 MEQ TAB (K-DUR) PO SCH (05:13)
[2021-10-12] MEDS: POTASSIUM CL 10MEQ/50ML IVPB 50 ML IV SCH (05:13)
--- NOTE | 2021-10-12 08:50 | Progress Note ---
Subjective Subjective/Events-last exam Had a lot of pain with trying to prone this morning, so severe that he then had trouble catching his breath and is now on bipap at 100% FiO2. However, was tolerating lower FiO2 on vapotherm and not needing bipap for 24 or more hours prior. He feels okay currently. Objective Exam Last Set of Vital Signs Vital Signs Date Time Temp Pulse Resp B/P (MAP) Pulse Ox O2 Delivery O2 Flow Rate FiO2 10/12/21 08:37 97 NIV Bilevel 75 10/12/21 08:30 75.00 10/12/21 08:18 71 33 10/12/21 08:00 119/82 (97) 10/12/21 04:00 36.2 Capillary Refill : Less Than 3 Seconds I&O Intake and Output 10/12/21 00:00 Intake Total 3120 ml Output Total 2725 ml Balance 395 ml Intake Oral 2870 ml IV Total 250 ml Output Urine Total 2725 ml # Bowel Movements 1 General: Alert, No Acute Distress Lungs: Other (decreased air movement) Heart: Regular Rate Abdomen: Normal Bowel Sounds, Soft Extremities: No Edema Neuro: Normal Speech Psych/Mental Status: Mood NL Results/Procedures Lab Laboratory Tests 10/11/21 10:55: Glucometer 209H 10/11/21 16:22: Glucometer 172H 10/12/21 01:27: Glucometer 133H 10/12/21 04:10: White Blood Count 18.7H, Red Blood Count 5.19, Hemoglobin 15.1, Hematocrit 44, Mean Corpuscular Volume 85, Mean Corpuscular Hemoglobin 29, Mean Corpuscular Hemoglobin Concent 34, Red Cell Distribution Width 13.1, Platelet Count 150, Mean Platelet Volume 11.4, Immature Granulocyte % (Auto) 9, Neutrophils (%) (Auto) 79H, Lymphocytes (%) (Auto) 7L, Monocytes (%) (Auto) 4, Eosinophils (%) (Auto) 0, Basophils (%) (Auto) 0, Neutrophils # (Auto) 14.8H, Lymphocytes # (Auto) 1.3, Monocytes # (Auto) 0.8, Eosinophils # (Auto) 0.0, Basophils # (Auto) 0.1, Immature Granulocyte # (Auto) 1.6H, Neutrophils % (Manual) 84, Lymphocytes % (Manual) 4, Monocytes % (Manual) 3, Eosinophils % (Manual) 0, Basophils % (Manual) 0, Band Neutrophils 8, Reactive Lymphocytes 1, Smudge Cells MOD, Sodium Level 138, Potassium Level 4.2, Chloride Level 103, Carbon Dioxide Level 23, Anion Gap 12, Blood Urea Nitrogen 24H, Creatinine 0.80, Estimat Glomerular Filtration Rate 101, BUN/Creatinine Ratio 30, Glucose Level 103, Calcium Level 8.2L, Phosphorus Level 2.7, Magnesium Level 2.4 Microbiology 10/07/21 Gram Stain - Final, Complete 10/07/21 Sputum Culture - Final, Complete Usual upper respiratory frida YEAST 10/06/21 Blood Culture - Final, Complete No growth Assessment/Plan Assessment/Plan (1) Acute respiratory failure due to COVID-19 Status: Acute Assessment & Plan: Currently requiring high FiO2, will recheck CRP and if increasing, will give Actemra. Continue dexamethasone. Remdesevir started per ICU. D dimer elevated, CTA negative for PE. 10/09- s/p Actemra, continue dexamethasone and remdesevir. Still requiring 100% FiO2. 10/10- on and off bipap, continue to monitor closely, continue dexamethasone and remdesevir 10/11- dexamethasone increased to 10 mg yesterday, is tolerating lower FiO2 today, completed remdesevir course and s/p Actemra. 10/12- dexamethasone day 7, increased to 10 mg 2 days ago, requiring bipap again this am, s/p remdesevir and Actemra. (2) Pneumonia due to COVID-19 virus Status: Acute (3) Depression Status: Chronic Assessment & Plan: Resume home SSRI (4) Hypertension Status: Chronic Assessment & Plan: Resume home lisinopril 10/09 increase lisinopril to 20 mg daily (5) Hyperlipidemia Status: Chronic (6) Liver mass, right lobe Status: Acute Assessment & Plan: Seen incidentally on chest CT, needs non-urgent CT liver protocol for follow up. (7) Deep vein thrombosis Status: Acute Assessment & Plan: Right peroneal, left femoral into calf veins, started on treatment dose enoxaparin 10/11. Qualifiers: NELY NEGRO MD Oct 12, 2021 08:50
[2021-10-12] MEDS: lisINopril 20 MG (PRINIVIL) TABLET PO SCH (08:52)
[2021-10-12] MEDS: amLODIPine 5 MG (NORVASC) TAB PO SCH (08:52)
[2021-10-12] MEDS: ENOXAPARIN 80 MG/0.8 ML (LOVENOX) SYR SC SCH ×2 (08:52→21:34)
[2021-10-12] MEDS: ACYCLOVIR 400 MG TABLET (ZOVIRAX) PO SCH ×2 (08:52→17:08)
[2021-10-12] MEDS ORDERED: NS 100 ML (IVPB) BAG IV ONE (11:15)
[2021-10-12] MEDS ORDERED: HOLD METFORMIN - RECEIVED CONTRAST 20 ML VIAL IV SCH (11:15)
[2021-10-12] MEDS ORDERED: IOHEXOL 350 MG/ML 100 ML (OMNIPAQUE 350) VIAL IV ONE (11:15)
[2021-10-12] MEDS ORDERED: CATHETER FLUSH 10 ML SYR IV PRN (11:15)
[2021-10-12] MEDS: FLUCONAZOLE 100 MG/50 ML IVPB IV SCH ×2 (12:07)
[2021-10-12] MEDS: DexMEDEtomidine 250 ML DRIP 250 ML IV SCH (13:37)
[2021-10-12] MEDS: traZODone 50 MG (DESYREL) TAB PO SCH (21:33)
[2021-10-12] MEDS: AtorvaSTATin TABLET 10 MG TABLET PO SCH (21:33)
[2021-10-13] VITALS (25 sets, daily range): BP systolic 94–198; BP diastolic 59–109
[2021-10-13] MEDS: ALPRAZolam 0.5 MG (XANAX) TAB PO PRN ×3 (00:14→20:04)
[2021-10-13] MEDS: RT-ALBUTEROL HFA 8.5 GM INHALER IH SCH ×4 (02:32→21:54)
[2021-10-13 04:53] LABS: BASOPHILS # (AUTO) 0.1 10^3/uL (0.0-0.1); BASOPHILS % (AUTO) 1 % (0-10); EOSINOPHILS % (AUTO) 0 % (0-10); HEMATOCRIT 48 % (40-54); LYMPHOCYTES # (AUTO) 1.4 10^3/uL (1.0-4.0); LYMPHOCYTES % (AUTO) 6 % (12-44); MEAN CORPUSCULAR HEMOGLOBIN 29 pg (25-34); MEAN CORPUSCULAR HGB CONC 34 g/dL (32-36); MEAN CORPUSCULAR VOLUME 85 fL (80-99); MEAN PLATELET VOLUME 11.9 fL (9.0-12.2); MONOCYTES % (AUTO) 4 % (0-12); NEUTROPHILS # (AUTO) 18.3 10^3/uL (1.8-7.8); NEUTROPHILS % (AUTO) 81 % (42-75); PLATELET COUNT 165 10^3/uL (130-400); WHITE BLOOD COUNT 22.7 10^3/uL (4.3-11.0)
[2021-10-13 05:06] LABS: POTASSIUM 4.2 MMOL/L (3.6-5.0)
[2021-10-13 05:07] LABS: CALCIUM 8.5 MG/DL (8.5-10.1)
[2021-10-13 05:11] LABS: CREATININE SERUM 0.74 MG/DL (0.60-1.30); PHOSPHORUS 3.4 MG/DL (2.3-4.7)
[2021-10-13 05:13] LABS: MAGNESIUM 2.4 MG/DL (1.6-2.4)
[2021-10-13] MEDS: POTASSIUM CL 10MEQ/50ML IVPB 50 ML IV SCH (05:13)
[2021-10-13] MEDS: KCL 20 MEQ TAB (K-DUR) PO SCH (05:13)
[2021-10-13] MEDS: inSUlin ASPART (NovoLOG) 1 UNIT/0.01 ML (CHARGE PER UNIT) SQ SCH ×4 (05:14→20:13)
[2021-10-13] MEDS: CYCLOBENZAPRINE 10 MG (FLEXERIL) TAB PO PRN ×2 (05:18→08:38)
[2021-10-13] MEDS: MAGNESIUM 1 GM/100 ML IVPB 100 ML IV SCH (05:21)
[2021-10-13 05:50] LABS: BAND NEUTROPHILS 2 %; EOSINOPHILS % (MANUAL) 1 %; LYMPHOCYTES % (MANUAL) 2 %; METAMYELOCYTES % 1 %; MONOCYTES % (MANUAL) 4 %; MYELOCYTES % 3 %; NEUTROPHILS % (MANUAL) 87 %
--- NOTE | 2021-10-13 06:38 | Diagnostic Imaging Report ---
Indication: Dyspnea, follow-up COVID pneumonia. Comparison: 10/11/2021. Discussion: Single portable upright view of the chest was obtained. Stable normal heart size. Patchy infiltrates within the mid to lower lungs are slightly decreased though still moderate to severe. No pleural fluid or pneumothorax. No osseous abnormality. Impression: 1. Slightly decreased bilateral infiltrates. Report was faxed to [facility] Infection Control by mame at 6:37am. Dictated by: Dictated on workstation # [id number]
[2021-10-13] MEDS: ACETAMINOPHEN 500 MG TAB (TYLENOL) PO PRN (06:56)
--- NOTE | 2021-10-13 07:58 | Tele-ICU Progress Note ---
Progress Note video rounds completed 51 y/o male with Covid PNA. Has been tolerating intermittent BIPAP and vapotherm PE:comfortable in bed. Not tachypneic Pulse: 69 BP: 130/78 RR 21 O2 sats 90% Has completed Actemra and remdesivir Now on decadron 10mg q day ON lovenox and and pepcid WBC: up to 22.7 today PLAN: continue monitoring in ICU BIPAP PRN and vapotherm Rising WBC concerning for secondary PNA Focused Exam Height, Weight, BMI Height: 5'10.00" Weight: 182lbs. 0.0oz. 82.173225kh; 25.79 BMI Method: Laboratory Tests 10/13/21 04:20 Labs Labs Laboratory Tests 10/12/21 16:57: Glucometer 232H 10/13/21 04:20: White Blood Count 22.7H, Red Blood Count 5.61H, Hemoglobin 16.0, Hematocrit 48, Mean Corpuscular Volume 85, Mean Corpuscular Hemoglobin 29, Mean Corpuscular Hemoglobin Concent 34, Red Cell Distribution Width 13.3, Platelet Count 165, Mean Platelet Volume 11.9, Immature Granulocyte % (Auto) 9, Neutrophils (%) (Auto) 81H, Lymphocytes (%) (Auto) 6L, Monocytes (%) (Auto) 4, Eosinophils (%) (Auto) 0, Basophils (%) (Auto) 1, Neutrophils # (Auto) 18.3H, Lymphocytes # (Auto) 1.4, Monocytes # (Auto) 1.0, Eosinophils # (Auto) 0.0, Basophils # (Auto) 0.1, Immature Granulocyte # (Auto) 1.9H, Neutrophils % (Manual) 87, Lymphocytes % (Manual) 2, Monocytes % (Manual) 4, Eosinophils % (Manual) 1, Metamyelocytes % 1, Myelocytes % 3, Band Neutrophils 2, Smudge Cells SLIGHT, Sodium Level 138, Potassium Level 4.2, Chloride Level 101, Carbon Dioxide Level 26, Anion Gap 11, Blood Urea Nitrogen 22H, Creatinine 0.74, Estimat Glomerular Filtration Rate 11 1, BUN/Creatinine Ratio 30, Glucose Level 112H, Calcium Level 8.5, Phosphorus L evel 3.4, Magnesium Level 2.4 Microbiology 10/11/21 Gram Stain - Final, Resulted 10/11/21 Sputum Culture - Preliminary, Resulted Usual upper respiratory frida 10/06/21 Blood Culture - Final, Complete No growth LOWELL GARZA MD Oct 13, 2021 07:58
--- NOTE | 2021-10-13 08:14 | Progress Note - Hospitalist ---
Subjective HPI/CC On Admission Date Seen by Provider: Oct 13, 2021 Time Seen by Provider: 11:00 Admisison Planning May Need Admission (Planning): 08:00 (JAVIER ORDONEZ MD) Progress Progress Note #1: Time: 08:11 Progress Note 51-year-old male presents to the emergency department with his parents chief complaint of increasing shortness of breath, cough, body aches headache, nausea vomiting and diarrhea. Tells us initially that he was seen by [facility] 2 or 3 days ago, tested negative for Covid. Later his father contributes to the history stating that the patient was in fact told that he had pneumonia and was started on an antibiotic however the patient cannot recall what that was when asked. Patient states that he does not and has not ever smoked. He does not work around fumes or smoke. He states his cough is nonproductive. Has had profoundly severe shortness of breath with exertion over the last 24 hours. Takes medication for cholesterol and hypertension although did not take his medicine for hypertension this morning. Denies known sick contacts with Covid. Is not vaccinated. No history of blood clot in family or himself. No recent prolonged immobility or travel. No pain or swelling in his lower extremities. No recent black or bloody stool. Complains that his heart is "racing". Room air sats in the 70s on arrival to the emergency department. Still at 88 to 89% on 12 L per nasal cannula. Patient is noted to have fine rales at the bases bilaterally, moderate respiratory distress. No swelling in his lower extremities. No tenderness in the calves, negative Homans bilaterally. No rashes. Soft nontender abdomen. Dry oral mucosa. Sepsis work-up initiated with Covid and influenza testing. D-dimer pending. Chest x-ray pending. Patient is started on Vapotherm per respiratory therapy. Subjective/Events-last exam Patient doing better White blood cell count 22.7 Chest x-ray improved Received Actemra appears to be benefiting well Bowels are moving Declines BiPAP because he is so hungry Vapotherm 40 L 95% Hydrocodone ordered for right-sided chest pain Review of Systems General: Fatigue, Malaise Pulmonary: Dyspnea, Cough Objective Exam Vital Signs Vital Signs Date Time Temp Pulse Resp B/P (MAP) Pulse Ox O2 Delivery O2 Flow Rate FiO2 10/14/21 04:00 NIV Bilevel 75 10/14/21 04:00 35.9 10/14/21 03:28 75.00 10/14/21 02:58 90 10/14/21 01:26 108 10/14/21 01:00 27 96/63 (74) Capillary Refill : Less Than 3 Seconds General Appearance: No Apparent Distress, WD/WN, Anxious Respiratory: No Accessory Muscle Use, No Respiratory Distress, Decreased Breath Sounds Cardiovascular: Regular Rate, Rhythm Neurologic/Psychiatric: Alert, Oriented x3 Results/Procedures Lab Laboratory Tests 10/14/21 04:15 Patient resulted labs reviewed. Assessment/Plan Assessment and Plan Assess & Plan/Chief Complaint Assessment: Acute hypoxic respiratory failure COVID-19 pneumonia DVT on anticoagulation Lung mass seen incidentally on CT scan Right-sided chest pain musculoskeletal type Hypertension Plan: BiPAP Vapotherm Anticoagulation Critical Care Critically Ill Patient DUSTIN IBRAHIM DO Oct 13, 2021 08:14
[2021-10-13] MEDS: ACYCLOVIR 400 MG TABLET (ZOVIRAX) PO SCH ×2 (08:39→17:54)
[2021-10-13] MEDS: FLUCONAZOLE 100 MG/50 ML IVPB IV SCH ×2 (08:39)
[2021-10-13] MEDS: lisINopril 20 MG (PRINIVIL) TABLET PO SCH (08:39)
[2021-10-13] MEDS: ENOXAPARIN 80 MG/0.8 ML (LOVENOX) SYR SC SCH ×2 (08:39→21:30)
[2021-10-13] MEDS: amLODIPine 5 MG (NORVASC) TAB PO SCH (08:39)
[2021-10-13 11:20] LABS: ALBUMIN 3.3 GM/DL (3.2-4.5)
[2021-10-13 11:22] LABS: TOTAL PROTEIN 6.4 GM/DL (6.4-8.2)
[2021-10-13 11:24] LABS: BILIRUBIN,TOTAL 0.8 MG/DL (0.1-1.0)
[2021-10-13 11:28] LABS: BILIRUBIN,DIRECT 0.3 MG/DL (0.0-0.3); BILIRUBIN,INDIRECT 0.5 MG/DL
[2021-10-13] MEDS: traZODone 50 MG (DESYREL) TAB PO SCH (20:04)
[2021-10-13] MEDS: AtorvaSTATin TABLET 10 MG TABLET PO SCH (20:04)
[2021-10-13] MEDS: guaiFENesin/DM (ROBITUSSIN DM) 10 ML UDC PO PRN (21:30)
[2021-10-14] VITALS (27 sets, daily range): BP systolic 85–154; BP diastolic 54–101
[2021-10-14] MEDS: RT-ALBUTEROL HFA 8.5 GM INHALER IH SCH ×4 (02:58→20:58)
[2021-10-14] MEDS: ALPRAZolam 0.5 MG (XANAX) TAB PO PRN ×3 (02:59→17:23)
[2021-10-14] MEDS: CYCLOBENZAPRINE 10 MG (FLEXERIL) TAB PO PRN ×3 (03:00→20:23)
[2021-10-14 04:49] LABS: BASOPHILS # (AUTO) 0.2 10^3/uL (0.0-0.1); BASOPHILS % (AUTO) 1 % (0-10); EOSINOPHILS % (AUTO) 0 % (0-10); HEMATOCRIT 47 % (40-54); HEMOGLOBIN 15.3 g/dL (13.3-17.7); LYMPHOCYTES # (AUTO) 1.1 10^3/uL (1.0-4.0); LYMPHOCYTES % (AUTO) 3 % (12-44); MEAN CORPUSCULAR HEMOGLOBIN 28 pg (25-34); MEAN CORPUSCULAR HGB CONC 33 g/dL (32-36); MEAN CORPUSCULAR VOLUME 86 fL (80-99); MEAN PLATELET VOLUME 11.7 fL (9.0-12.2); MONOCYTES # (AUTO) 1.4 10^3/uL (0.0-1.0); MONOCYTES % (AUTO) 4 % (0-12); NEUTROPHILS # (AUTO) 30.1 10^3/uL (1.8-7.8); NEUTROPHILS % (AUTO) 87 % (42-75); PLATELET COUNT 200 10^3/uL (130-400)
[2021-10-14 05:02] LABS: WHITE BLOOD COUNT 34.7 10^3/uL (4.3-11.0)
[2021-10-14 05:09] LABS: POTASSIUM 4.5 MMOL/L (3.6-5.0)
[2021-10-14 05:10] LABS: CALCIUM 8.4 MG/DL (8.5-10.1)
[2021-10-14 05:15] LABS: CREATININE SERUM 0.75 MG/DL (0.60-1.30); PHOSPHORUS 3.7 MG/DL (2.3-4.7)
[2021-10-14 05:17] LABS: MAGNESIUM 2.4 MG/DL (1.6-2.4)
[2021-10-14] MEDS: MAGNESIUM 1 GM/100 ML IVPB 100 ML IV SCH (05:22)
[2021-10-14] MEDS: POTASSIUM CL 10MEQ/50ML IVPB 50 ML IV SCH (05:22)
[2021-10-14] MEDS: KCL 20 MEQ TAB (K-DUR) PO SCH (05:23)
[2021-10-14] MEDS: inSUlin ASPART (NovoLOG) 1 UNIT/0.01 ML (CHARGE PER UNIT) SQ SCH ×4 (05:23→20:21)
--- NOTE | 2021-10-14 05:34 | Tele-ICU Progress Note ---
Subjective Date Seen by a Provider: Oct 14, 2021 Time Seen by a Provider: 05:33 Sepsis Event Evaluation Height, Weight, BMI Height: 5'10.00" Weight: 182lbs. 0.0oz. 82.391202qa; 25.79 BMI Method: Exam Exam Patient acknowledged, consented, and participated in this virtual visit which was conducted using real time audio/video Vital Signs Date Time Temp Pulse Resp B/P (MAP) Pulse Ox O2 Delivery O2 Flow Rate FiO2 10/14/21 04:00 NIV Bilevel 75 10/14/21 04:00 35.9 10/14/21 03:28 NIV Bilevel 75.00 10/14/21 02:58 90 Vapotherm 40.00 100 10/14/21 01:48 Vapotherm 40.00 100.00 10/14/21 01:26 36.0 108 90 78 10/14/21 01:00 80 10/14/21 01:00 75 27 96/63 (74) 100 NIV Bilevel 75.00 10/14/21 00:32 NIV Bilevel 75 10/14/21 00:28 36.0 10/14/21 00:00 77 28 115/72 (86) 99 NIV Bilevel 75.00 10/13/21 23:00 77 28 139/101 (114) 97 NIV Bilevel 75.00 10/13/21 22:00 79 30 143/95 (111) 97 NIV Bilevel 75.00 10/13/21 21:54 79 36 95 75.00 10/13/21 21:54 94 NIV Bilevel 75.00 10/13/21 21:38 NIV Bilevel 100.00 10/13/21 21:00 86 30 181/107 (131) 96 Vapotherm 40.00 100.00 10/13/21 20:00 94 23 179/107 (131) 89 Vapotherm 40.00 100.00 10/13/21 20:00 36.7 10/13/21 20:00 89 Vapotherm 40.00 100 10/13/21 20:00 Vapotherm 40.00 100.00 10/13/21 19:00 92 28 187/92 (123) 90 Vapotherm 40.00 95.00 10/13/21 19:00 90 10/13/21 18:00 99 28 198/109 (138) 88 Vapotherm 40.00 95.00 10/13/21 17:00 94 164/91 (115) 91 Vapotherm 40.00 95.00 10/13/21 16:00 85 35 92 Vapotherm 40.00 95.00 10/13/21 16:00 36.0 10/13/21 15:36 94 NIV Bilevel 95 10/13/21 15:00 85 35 148/86 (106) 92 Vapotherm 40.00 95.00 10/13/21 14:22 93 Vapotherm 40.00 90 10/13/21 14:00 73 21 173/87 (115) 92 Vapotherm 40.00 95.00 10/13/21 13:00 96 23 147/91 (109) 92 Vapotherm 40.00 95.00 10/13/21 13:00 87 10/13/21 12:00 94 NIV Bilevel 95 10/13/21 12:00 93 21 146/83 (104) 90 Vapotherm 40.00 95.00 10/13/21 11:00 85 26 133/82 (99) 93 Vapotherm 40.00 95.00 10/13/21 10:00 84 22 123/73 (90) 90 Vapotherm 40.00 95.00 10/13/21 09:52 94 Vapotherm 40.00 95 10/13/21 09:00 74 18 120/90 (100) 95 Vapotherm 40.00 95.00 10/13/21 08:00 93 NIV Bilevel 95 10/13/21 08:00 68 19 97/69 (78) 96 Vapotherm 40.00 95.00 10/13/21 07:00 70 23 130/78 (94) 91 Vapotherm 40.00 95.00 10/13/21 07:00 68 10/13/21 07:00 36.0 10/13/21 06:58 89 Vapotherm 40.00 90 10/13/21 06:00 68 21 116/68 (84) 97 Vapotherm 40.00 95.00 I & O 10/14/21 07:00 Intake Total 1925 ml Output Total 1950 ml Balance -25 ml Height & Weight Height: 5'10.00" Weight: 182lbs. 0.0oz. 82.601552jd; 25.79 BMI Method: General Appearance: Anxious, Mild Distress HEENT: PERRL/EOMI, Normal ENT Inspection, Other (dry mucous membranes) Neck: Normal Inspection, Supple Respiratory: No Accessory Muscle Use, No Respiratory Distress, Other (Coarse breath sounds throughout with fine rales to the mid lung linda bilaterally no wheezing appreciated.) Cardiovascular: Regular Rate, Rhythm, No Edema, No Gallop, No JVD, No Murmur, Normal Peripheral Pulses Capillary Refill: Less Than 3 Seconds Peripheral Pulses: 1+ Dorsalis Pedis (R), 1+ Left Dors-Pedis (L); 2+ Radial Pulses (R), 2+ Radial Pulses (L) Extremity: Normal Inspection, Normal Range of Motion, Non Tender, No Calf Tenderness, No Pedal Edema Neurologic/Psychiatric: Alert, Oriented x3, No Motor/Sensory Deficits Skin: Normal Color, Warm/Dry Results Lab Laboratory Tests 10/13/21 04:20 10/14/21 04:15 Assessment/Plan Assessment/Plan Increased wbc: pancult/cxray/procal/lactic acid; consider abx broad spectrum abx if lactic acid and/or procal are high ANNA GAN MD Oct 14, 2021 05:34
[2021-10-14 06:23] LABS: BAND NEUTROPHILS 5 %; MONOCYTES % (MANUAL) 4 %; MYELOCYTES % 1 %; NEUTROPHILS % (MANUAL) 90 %
[2021-10-14] MEDS: DexMEDEtomidine 250 ML DRIP 250 ML IV SCH ×2 (06:49→20:23)
--- NOTE | 2021-10-14 06:59 | Diagnostic Imaging Report ---
Indication: Pneumonia and COVID 19 positive. TIME OF EXAM: 6:13 AM Correlation is made with prior chest from one day earlier. Extensive bilateral airspace pulmonary infiltrates persist consistent with pneumonia. The heart size normal. There is no effusion or pneumothorax. IMPRESSION: Patchy bilateral pulmonary infiltrates consistent with pneumonia. Overall appearance is similar to yesterday. Dictated by: Dictated on workstation # [id number]
[2021-10-14 07:10] LABS: BILIRUBIN,URINE NEGATIVE (NEGATIVE); CLARITY,URINE CLEAR; COLOR,URINE YELLOW; GLUCOSE, URINE (UA) NEGATIVE (NEGATIVE); KETONES,URINE NEGATIVE (NEGATIVE); LEUKOCYTE ESTERASE ,URINE NEGATIVE (NEGATIVE); NITRITE,URINE NEGATIVE (NEGATIVE); PROTEIN,URINE TRACE (NEGATIVE)
[2021-10-14 07:26] LABS: BACTERIA,URINE TRACE /HPF; HYALINE CASTS, URINE RARE /LPF; WBC,URINE RARE /HPF
[2021-10-14] MEDS: FLUCONAZOLE 100 MG/50 ML IVPB IV SCH ×2 (08:12)
[2021-10-14] MEDS: amLODIPine 5 MG (NORVASC) TAB PO SCH (08:12)
[2021-10-14] MEDS: lisINopril 20 MG (PRINIVIL) TABLET PO SCH (08:12)
[2021-10-14] MEDS: ACYCLOVIR 400 MG TABLET (ZOVIRAX) PO SCH ×2 (08:13→17:23)
[2021-10-14] MEDS: ENOXAPARIN 80 MG/0.8 ML (LOVENOX) SYR SC SCH ×2 (08:51→22:13)
--- NOTE | 2021-10-14 10:41 | Tele-ICU Progress Note ---
Subjective Date Seen by a Provider: Oct 14, 2021 Time Seen by a Provider: 09:53 Sepsis Event Evaluation Height, Weight, BMI Height: 5'10.00" Weight: 182lbs. 0.0oz. 82.717666cx; 25.79 BMI Method: Focused Exam Lactate Level 10/14/21 06:30: Lactic Acid Level 1.38 Exam Exam Patient acknowledged, consented, and participated in this virtual visit which was conducted using real time audio/video Vital Signs Date Time Temp Pulse Resp B/P (MAP) Pulse Ox O2 Delivery O2 Flow Rate FiO2 10/14/21 10:00 73 17 97/54 (68) 94 NIV Bilevel 75.00 10/14/21 09:01 35.3 10/14/21 09:00 67 11 94/56 (69) 93 NIV Bilevel 75.00 10/14/21 08:30 60.00 10/14/21 08:24 78 36 97 75.00 10/14/21 08:00 NIV Bilevel 60 10/14/21 08:00 70 25 92/62 (72) 97 NIV Bilevel 75.00 10/14/21 07:00 73 10/14/21 07:00 70 25 106/68 (81) 96 NIV Bilevel 75.00 10/14/21 06:49 74 117/89 10/14/21 06:00 73 29 93/72 (79) 95 NIV Bilevel 75.00 10/14/21 05:00 73 26 124/81 (95) 98 NIV Bilevel 75.00 10/14/21 04:00 80 29 133/77 (95) 96 NIV Bilevel 75.00 10/14/21 04:00 NIV Bilevel 75 10/14/21 04:00 35.9 10/14/21 03:28 NIV Bilevel 75.00 10/14/21 03:00 78 32 124/83 (97) 97 Vapotherm 40.00 100.00 10/14/21 02:58 90 Vapotherm 40.00 100 10/14/21 02:00 73 32 107/71 (83) 97 Vapotherm 40.00 100.00 10/14/21 01:48 Vapotherm 40.00 100.00 10/14/21 01:26 36.0 108 90 78 10/14/21 01:00 80 10/14/21 01:00 75 27 96/63 (74) 100 NIV Bilevel 75.00 10/14/21 00:32 NIV Bilevel 75 10/14/21 00:28 36.0 10/14/21 00:00 77 28 115/72 (86) 99 NIV Bilevel 75.00 10/13/21 23:00 77 28 139/101 (114) 97 NIV Bilevel 75.00 10/13/21 22:00 79 30 143/95 (111) 97 NIV Bilevel 75.00 10/13/21 21:54 79 36 95 75.00 10/13/21 21:54 94 NIV Bilevel 75.00 10/13/21 21:38 NIV Bilevel 100.00 10/13/21 21:00 86 30 181/107 (131) 96 Vapotherm 40.00 100.00 10/13/21 20:00 94 23 179/107 (131) 89 Vapotherm 40.00 100.00 10/13/21 20:00 36.7 10/13/21 20:00 89 Vapotherm 40.00 100 10/13/21 20:00 Vapotherm 40.00 100.00 10/13/21 19:00 92 28 187/92 (123) 90 Vapotherm 40.00 95.00 10/13/21 19:00 90 10/13/21 18:00 99 28 198/109 (138) 88 Vapotherm 40.00 95.00 10/13/21 17:00 94 164/91 (115) 91 Vapotherm 40.00 95.00 10/13/21 16:00 85 35 92 Vapotherm 40.00 95.00 10/13/21 16:00 36.0 10/13/21 15:36 94 NIV Bilevel 95 10/13/21 15:00 85 35 148/86 (106) 92 Vapotherm 40.00 95.00 10/13/21 14:22 93 Vapotherm 40.00 90 10/13/21 14:00 73 21 173/87 (115) 92 Vapotherm 40.00 95.00 10/13/21 13:00 96 23 147/91 (109) 92 Vapotherm 40.00 95.00 10/13/21 13:00 87 10/13/21 12:00 94 NIV Bilevel 95 10/13/21 12:00 93 21 146/83 (104) 90 Vapotherm 40.00 95.00 10/13/21 11:00 85 26 133/82 (99) 93 Vapotherm 40.00 95.00 I & O 10/14/21 07:00 Intake Total 2425 ml Output Total 2225 ml Balance 200 ml Height & Weight Height: 5'10.00" Weight: 182lbs. 0.0oz. 82.473273et; 25.79 BMI Method: General Appearance: No Apparent Distress, WD/WN, Anxious HEENT: PERRL/EOMI, Normal ENT Inspection, Other (dry mucous membranes) Neck: Normal Inspection, Supple Respiratory: No Accessory Muscle Use, No Respiratory Distress, Decreased Breath Sounds Cardiovascular: Regular Rate, Rhythm Capillary Refill: Less Than 3 Seconds Peripheral Pulses: 1+ Dorsalis Pedis (R), 1+ Left Dors-Pedis (L); 2+ Radial Pulses (R), 2+ Radial Pulses (L) Extremity: Normal Inspection, Normal Range of Motion, Non Tender, No Calf Tenderness, No Pedal Edema Neurologic/Psychiatric: Alert, Oriented x3 Skin: Normal Color, Warm/Dry Results Lab Laboratory Tests 10/13/21 04:20 10/14/21 04:15 Assessment/Plan Assessment/Plan (Tele-ICU Physician , Progress Note ) Available chart/ vitals / labs / Images reviewed Video assessment done using teleICU camera, rest of exam as per RN Discussed with RN , EXAM PER RN Events overnight : Afebrile I/O = even Drips: Pressors: , hemodynamically stable Consultants: Hospital course: (10/08) 77 y/o female admitted for COVID+, transfer from other facility - , VT 20L 70% 10/09 changed to BIPAP 10/10 Bipap 100% _ precedex 0.4 10/11 - VT 35/80% prn bipap , precedex 0.4 - Left lower extremity DVT 10/14 - VT 60L 75% , , BIPAP 60%- precedex 1.0, STARTED ZOSYN A/P AHRF / ARDS due to severe COVID19 ( CTA neg for pe 10/07 - in other facility , reportedly - did not see report personally - VT 60L 75% , prn bipap , precedex 1.0 -can not do prone position - shoulder pain - conservative fluid strategy ( [id number]-Ptkqsnjwivu-3/COVID-19 PNA ( Symptom onset unknown now DX unvaccinted --Dexamethasone - chanhged to 10 qd with wheexing 10/10 -Hypercoagulable state -> lovenox ppx dose , CTA neg for pe 10/06 - DDIMER > 20- 10/11 -_DVT -> Full dose lovenox ( not stable for CT to assess for PE Pneumomediastinum on ct 10/06 - not seen on cxr f/up Monitor for superimposed bact PNA - nl PCT , OFF abx - leucocytosis and worsenign cxxr - started on Zosyn 10/14 Left lower extremity DVT dx 10/12 - fill dose lovenox Hyperglycemia - ISS , close f/up on steroids Lines : periph Central Line Necessity Reviewed) Hurd: 10/08 OG: Nutrition: po Analgesia: Anxiety/ delirium = precedex VTE Prophylaxis: steve 80 bid Stress Ulcer Prophylaxis: po Plans in collaboration with bedside consultants and IM MDs. Discussed with RN to reach out if any questions or concerns A total of 35 minutes of critical care time was devoted to this patient today, required to treat and/or prevent further deterioration of critical care condition ( as above ) . JOHN RCOW MD Oct 14, 2021 10:41
[2021-10-14] MEDS ORDERED: PIPERACILLIN SODIUM/TAZOBACTAM 4.5 GM in NS (IVPB) 100 ML IV NR (11:00)
--- NOTE | 2021-10-14 11:50 | Progress Note - Hospitalist ---
Subjective HPI/CC On Admission Date Seen by Provider: Oct 14, 2021 Time Seen by Provider: 11:15 Admisison Planning May Need Admission (Planning): 08:00 (JAVIER ORDONEZ MD) Progress Progress Note #1: Time: 08:11 Progress Note 51-year-old male presents to the emergency department with his parents chief complaint of increasing shortness of breath, cough, body aches headache, nausea vomiting and diarrhea. Tells us initially that he was seen by [facility] 2 or 3 days ago, tested negative for Covid. Later his father contributes to the history stating that the patient was in fact told that he had pneumonia and was started on an antibiotic however the patient cannot recall what that was when asked. Patient states that he does not and has not ever smoked. He does not work around fumes or smoke. He states his cough is nonproductive. Has had profoundly severe shortness of breath with exertion over the last 24 hours. Takes medication for cholesterol and hypertension although did not take his medicine for hypertension this morning. Denies known sick contacts with Covid. Is not vaccinated. No history of blood clot in family or himself. No recent prolonged immobility or travel. No pain or swelling in his lower extremities. No recent black or bloody stool. Complains that his heart is "racing". Room a ir sats in the 70s on arrival to the emergency department. Still at 88 to 89% on 12 L per nasal cannula. Patient is noted to have fine rales at the bases bilaterally, moderate respiratory distress. No swelling in his lower extremities. No tenderness in the calves, negative Homans bilaterally. No rashes. Soft nontender abdomen. Dry oral mucosa. Sepsis work-up initiated with Covid and influenza testing. D-dimer pending. Chest x-ray pending. Patient is started on Vapotherm per respiratory therapy. Subjective/Events-last exam Patient doing about the same BiPAP settings 13/10 at 60% No major new issues Pain is controlled with hydrocodone White blood cell count increased to 34.7. Procalcitonin and lactic acid ordered by eICU were normal Checked meds and labs Updated brother who was hospitalized who manages Covid patients in [place] in depth Review of Systems General: Fatigue, Malaise Pulmonary: Dyspnea, Cough Focused Exam Lactate Level 10/14/21 06:30: Lactic Acid Level 1.38 Objective Exam Vital Signs Vital Signs Date Time Temp Pulse Resp B/P (MAP) Pulse Ox O2 Delivery O2 Flow Rate FiO2 10/15/21 04:32 84 122/83 (96) 91 NIV Bilevel 50.00 10/15/21 02:14 21 10/15/21 00:00 60 10/15/21 00:00 35.7 Capillary Refill : Less Than 3 Seconds General Appearance: No Apparent Distress, WD/WN, Anxious, Chronically ill, Other (BiPAP) Respiratory: No Accessory Muscle Use, No Respiratory Distress, Decreased Breath Sounds Cardiovascular: Regular Rate, Rhythm Neurologic/Psychiatric: Alert, Oriented x3 Results/Procedures Lab Patient resulted labs reviewed. Assessment/Plan Assessment and Plan Assess & Plan/Chief Complaint Assessment: Acute hypoxic respiratory failure now BiPAP dependent COVID-19 pneumonia DVT on anticoagulation Lung mass seen incidentally on CT scan Right-sided chest pain musculoskeletal type Hypertension Plan: BiPAP Vapotherm Anticoagulation 10/14/2021: Supportive care BiPAP Critical Care Critically Ill Patient DUSTIN IBRAHIM DO Oct 14, 2021 11:50
[2021-10-14] MEDS: PIPERACILLIN SODIUM/TAZOBACTAM 4.5 GM in NS (IVPB) 100 ML IV SCH (17:23)
[2021-10-14] MEDS: traZODone 50 MG (DESYREL) TAB PO SCH (20:23)
[2021-10-14] MEDS: AtorvaSTATin TABLET 10 MG TABLET PO SCH (20:23)
[2021-10-15] VITALS (26 sets, daily range): BP systolic 87–146; BP diastolic 60–100
[2021-10-15] MEDS: PIPERACILLIN SODIUM/TAZOBACTAM 4.5 GM in NS (IVPB) 100 ML IV SCH ×3 (00:55→17:53)
[2021-10-15] MEDS: RT-ALBUTEROL HFA 8.5 GM INHALER IH SCH ×4 (02:14→20:24)
[2021-10-15 05:17] LABS: BASOPHILS # (AUTO) 0.1 10^3/uL (0.0-0.1); BASOPHILS % (AUTO) 0 % (0-10); EOSINOPHILS % (AUTO) 0 % (0-10); HEMATOCRIT 44 % (40-54); HEMOGLOBIN 14.4 g/dL (13.3-17.7); LYMPHOCYTES % (AUTO) 3 % (12-44); MEAN CORPUSCULAR HEMOGLOBIN 29 pg (25-34); MEAN CORPUSCULAR HGB CONC 33 g/dL (32-36); MEAN CORPUSCULAR VOLUME 87 fL (80-99); MEAN PLATELET VOLUME 11.2 fL (9.0-12.2); MONOCYTES # (AUTO) 1.6 10^3/uL (0.0-1.0); MONOCYTES % (AUTO) 5 % (0-12); NEUTROPHILS # (AUTO) 30.4 10^3/uL (1.8-7.8); NEUTROPHILS % (AUTO) 88 % (42-75); PLATELET COUNT 208 10^3/uL (130-400)
[2021-10-15 05:37] LABS: ALBUMIN 3.1 GM/DL (3.2-4.5); POTASSIUM 4.5 MMOL/L (3.6-5.0)
[2021-10-15 05:38] LABS: CALCIUM 8.9 MG/DL (8.5-10.1)
[2021-10-15 05:40] LABS: TOTAL PROTEIN 5.9 GM/DL (6.4-8.2)
[2021-10-15 05:41] LABS: BILIRUBIN,TOTAL 0.8 MG/DL (0.1-1.0)
[2021-10-15 05:43] LABS: CREATININE SERUM 0.81 MG/DL (0.60-1.30); PHOSPHORUS 4.5 MG/DL (2.3-4.7)
[2021-10-15 05:45] LABS: BILIRUBIN,DIRECT 0.2 MG/DL (0.0-0.3); BILIRUBIN,INDIRECT 0.6 MG/DL
[2021-10-15 05:47] LABS: MAGNESIUM 2.5 MG/DL (1.6-2.4)
[2021-10-15 05:55] LABS: WHITE BLOOD COUNT 34.6 10^3/uL (4.3-11.0)
[2021-10-15] MEDS: MAGNESIUM 1 GM/100 ML IVPB 100 ML IV SCH (06:21)
[2021-10-15] MEDS: inSUlin ASPART (NovoLOG) 1 UNIT/0.01 ML (CHARGE PER UNIT) SQ SCH ×4 (06:21→21:34)
[2021-10-15] MEDS: POTASSIUM CL 10MEQ/50ML IVPB 50 ML IV SCH (06:21)
[2021-10-15] MEDS: KCL 20 MEQ TAB (K-DUR) PO SCH (06:21)
[2021-10-15 06:30] LABS: BAND NEUTROPHILS 4 %; LYMPHOCYTES % (MANUAL) 1 %; MONOCYTES % (MANUAL) 5 %; MYELOCYTES % 1 %; NEUTROPHILS % (MANUAL) 89 %
[2021-10-15] MEDS: ALPRAZolam 0.5 MG (XANAX) TAB PO PRN ×3 (06:47→21:33)
[2021-10-15] MEDS: FLUCONAZOLE 100 MG/50 ML IVPB IV SCH ×2 (08:38)
[2021-10-15] MEDS: ACYCLOVIR 400 MG TABLET (ZOVIRAX) PO SCH ×2 (08:39→17:53)
[2021-10-15] MEDS: CYCLOBENZAPRINE 10 MG (FLEXERIL) TAB PO PRN ×3 (08:39→22:46)
[2021-10-15] MEDS: guaiFENesin/DM (ROBITUSSIN DM) 10 ML UDC PO PRN ×3 (08:39→17:53)
--- NOTE | 2021-10-15 09:17 | Progress Note - Hospitalist ---
Subjective HPI/CC On Admission Date Seen by Provider: Oct 15, 2021 Time Seen by Provider: 10:00 Admisison Planning May Need Admission (Planning): 08:00 (JAVIER ORDONEZ MD) Progress Progress Note #1: Time: 08:11 Progress Note 51-year-old male presents to the emergency department with his parents chief complaint of increasing shortness of breath, cough, body aches headache, nausea vomiting and diarrhea. Tells us initially that he was seen by [facility] 2 or 3 days ago, tested negative for Covid. Later his father contributes to the history stating that the patient was in fact told that he had pneumonia and was started on an antibiotic however the patient cannot recall what that was when asked. Patient states that he does not and has not ever smoked. He does not work around fumes or smoke. He states his cough is nonproductive. Has had profoundly severe shortness of breath with exertion over the last 24 hours. Takes medication for cholesterol and hypertension although did not take his medicine for hypertension this morning. Denies known sick contacts with Covid. Is not vaccinated. No history of blood clot in family or himself. No recent prolonged immobility or travel. No pain or swelling in his lower extremities. No recent black or bloody stool. Complains that his heart is "racing". Room air sats in the 70s on arrival to the emergency department. Still at 88 to 89% on 12 L per nasal cannula. Patient is noted to have fine rales at the bases bilaterally, moderate respiratory distress. No swelling in his lower extremities. No tenderness in the calves, negative Homans bilaterally. No rashes. Soft nontender abdomen. Dry oral mucosa. Sepsis work-up initiated with Covid and influenza testing. D-dimer pending. Chest x-ray pending. Patient is started on Vapotherm per respiratory therapy. Subjective/Events-last exam Pt doing well Alternating between Vapotherm maxed and BiPAP Eating breakfast currently Pain is an issue but much improved Overall improving but slowly Review of Systems General: Fatigue, Malaise Pulmonary: Dyspnea, Cough Focused Exam Lactate Level 10/14/21 06:30: Lactic Acid Level 1.38 Objective Exam Vital Signs Vital Signs Date Time Temp Pulse Resp B/P (MAP) Pulse Ox O2 Delivery O2 Flow Rate FiO2 10/16/21 05:12 35.8 10/16/21 05:00 85 15 126/79 (91) 92 NIV Bilevel 50.00 10/16/21 04:00 40 Capillary Refill : Less Than 3 Seconds General Appearance: No Apparent Distress, WD/WN, Anxious, Chronically ill Respiratory: No Respiratory Distress, Accessory Muscle Use, Decreased Breath Sounds Cardiovascular: Regular Rate, Rhythm Neurologic/Psychiatric: Alert Results/Procedures Lab Laboratory Tests 10/16/21 03:30 Patient resulted labs reviewed. Assessment/Plan Assessment and Plan Assess & Plan/Chief Complaint Assessment: Acute hypoxic respiratory failure now BiPAP dependent COVID-19 pneumonia DVT on anticoagulation Lung mass seen incidentally on CT scan Right-sided chest pain musculoskeletal type Hypertension Plan: BiPAP Vapotherm Anticoagulation 10/14/2021: Supportive care BiPAP 10/15/2021: Supportive care BiPAP Vapotherm Covid protocol meds High risk for intubation Critical Care Critically Ill Patient DUSTIN IBRAHIM DO Oct 15, 2021 09:17
[2021-10-15] MEDS: amLODIPine 5 MG (NORVASC) TAB PO SCH (09:31)
[2021-10-15] MEDS: lisINopril 20 MG (PRINIVIL) TABLET PO SCH (09:31)
--- NOTE | 2021-10-15 09:42 | Tele-ICU Progress Note ---
Subjective Date Seen by a Provider: Oct 15, 2021 Time Seen by a Provider: 09:41 Sepsis Event Evaluation Height, Weight, BMI Height: 5'10.00" Weight: 182lbs. 0.0oz. 82.082181ow; 25.79 BMI Method: Focused Exam Lactate Level 10/14/21 06:30: Lactic Acid Level 1.38 Exam Exam Patient acknowledged, consented, and participated in this virtual visit which was conducted using real time audio/video Vital Signs Date Time Temp Pulse Resp B/P (MAP) Pulse Ox O2 Delivery O2 Flow Rate FiO2 10/15/21 09:18 Vapotherm 40.00 100.00 10/15/21 09:00 75 114/72 (86) 95 NIV Bilevel 50.00 10/15/21 08:15 96 Vapotherm 40.00 100 10/15/21 08:00 73 27 92/71 (78) 94 NIV Bilevel 50.00 10/15/21 08:00 35.9 10/15/21 07:06 73 26 94 50.00 10/15/21 07:00 73 10/15/21 07:00 76 104/69 (81) 93 NIV Bilevel 50.00 10/15/21 06:00 71 87/61 (70) 95 NIV Bilevel 50.00 10/15/21 05:36 84 120/79 (91) 93 NIV Bilevel 50.00 10/15/21 05:00 73 90/60 (69) 94 NIV Bilevel 50.00 10/15/21 04:32 84 122/83 (96) 91 NIV Bilevel 50.00 10/15/21 04:30 78 89/62 10/15/21 04:00 35.9 10/15/21 04:00 NIV Bilevel 50 10/15/21 03:30 77 91 NIV Bilevel 50.00 10/15/21 03:00 71 94/63 (73) 94 NIV Bilevel 60.00 10/15/21 02:51 86 125/99 (108) 88 NIV Bilevel 60.00 10/15/21 02:14 71 21 97 60.00 10/15/21 02:00 80 91/67 (75) 97 NIV Bilevel 60.00 10/15/21 01:00 75 103/72 (82) 96 NIV Bilevel 60.00 10/15/21 01:00 75 12/20/21 00:00 NIV Bilevel 60 10/15/21 00:00 35.7 10/15/21 00:00 75 106/64 (78) 95 NIV Bilevel 60.00 10/14/21 23:00 78 101/66 (78) 94 NIV Bilevel 60.00 10/14/21 22:41 NIV Bilevel 60.00 10/14/21 22:00 80 34 140/91 (109) 89 NIV Bilevel 75.00 10/14/21 21:54 80 42 90 60.00 10/14/21 21:00 76 30 123/83 (96) 92 NIV Bilevel 75.00 10/14/21 20:58 78 24 94 60.00 10/14/21 20:23 77 128/90 10/14/21 20:00 80 28 128/90 (100) 91 NIV Bilevel 75.00 10/14/21 20:00 35.3 10/14/21 20:00 NIV Bilevel 60 10/14/21 19:30 77 24 90 60.00 10/14/21 19:00 76 10/14/21 19:00 76 30 108/61 (75) 95 NIV Bilevel 75.00 10/14/21 18:00 73 31 85/59 (68) 95 NIV Bilevel 75.00 10/14/21 17:00 72 22 103/69 (80) 95 NIV Bilevel 75.00 10/14/21 16:00 35.0 10/14/21 16:00 73 25 96/68 (77) 96 NIV Bilevel 75.00 10/14/21 15:11 NIV Bilevel 60 10/14/21 15:00 75 28 97/60 (72) 94 NIV Bilevel 75.00 10/14/21 14:57 75 25 93 60.00 10/14/21 14:00 73 19 91/60 (70) 94 NIV Bilevel 75.00 10/14/21 13:00 70 23 101/65 (77) 96 NIV Bilevel 75.00 10/14/21 12:40 68 10/14/21 12:00 NIV Bilevel 60 10/14/21 12:00 70 27 87/55 (66) 95 NIV Bilevel 75.00 10/14/21 11:00 73 17 88/56 (67) 94 NIV Bilevel 75.00 12/19/21 10:00 73 17 97/54 (68) 94 NIV Bilevel 75.00 I & O 10/15/21 07:00 Intake Total 2320 ml Output Total 1150 ml Balance 1170 ml Height & Weight Height: 5'10.00" Weight: 182lbs. 0.0oz. 82.701622an; 25.79 BMI Method: General Appearance: No Apparent Distress, WD/WN, Anxious, Chronically ill, Other (BiPAP) HEENT: PERRL/EOMI, Normal ENT Inspection, Other (dry mucous membranes) Neck: Normal Inspection, Supple Respiratory: No Accessory Muscle Use, No Respiratory Distress, Decreased Breath Sounds Cardiovascular: Regular Rate, Rhythm Capillary Refill: Less Than 3 Seconds Peripheral Pulses: 1+ Dorsalis Pedis (R), 1+ Left Dors-Pedis (L); 2+ Radial Pulses (R), 2+ Radial Pulses (L) Extremity: Normal Inspection, Normal Range of Motion, Non Tender, No Calf Tenderness, No Pedal Edema Neurologic/Psychiatric: Alert, Oriented x3 Skin: Normal Color, Warm/Dry Results Lab Laboratory Tests 10/14/21 04:15 10/15/21 04:53 Assessment/Plan Assessment/Plan (Tele-ICU Physician , Progress Note ) Available chart/ vitals / labs / Images reviewed Video assessment done using teleICU camera, rest of exam as per RN Discussed with RN , EXAM PER RN Events overnight : Afebrile I/O = even Drips: Pressors: , hemodynamically stable Consultants: Hospital course: (10/08) 77 y/o female admitted for COVID+, transfer from other facility - , VT 20L 70% 10/09 changed to BIPAP 10/10 Bipap 100% _ precedex 0.4 10/11 - VT 35/80% prn bipap , precedex 0.4 - Left lower extremity DVT 10/14 - VT 60L 75% , , BIPAP 60%- precedex 1.0, STARTED ZOSYN 10/15 - VT 40 100% , bipap at night A/P AHRF / ARDS due to severe COVID19 ( CTA neg for pe 10/07 - in other facility , reportedly - did not see report personally - VT 40 100% , bipap at night , precedex 1.0 -can not do prone position - shoulder pain - conservative fluid strategy ( [id number]-Gewxwiozkqw-5/COVID-19 PNA ( Symptom onset unknown now DX unvaccinted --Dexamethasone - chanhged to 10 qd with wheexing 10/10 -Hypercoagulable state -> lovenox ppx dose , CTA neg for pe 10/06 - DDIMER > 20- 10/11 -_DVT -> Full dose lovenox ( not stable for CT to assess for PE Pneumomediastinum on ct 10/06 - not seen on cxr f/up Monitor for superimposed bact PNA - nl PCT , OFF abx - leucocytosis and worsenign cxxr - started on Zosyn 10/14 Left lower extremity DVT dx 10/12 - fill dose lovenox Hyperglycemia - ISS , close f/up on steroids Lines : periph Central Line Necessity Reviewed) Hurd: 10/08 OG: Nutrition: po Analgesia: Anxiety/ delirium = precedex VTE Prophylaxis: steve 80 bid Stress Ulcer Prophylaxis: po Plans in collaboration with bedside consultants and IM MDs. Discussed with RN to reach out if any questions or concerns A total of 35 minutes of critical care time was devoted to this patient today, required to treat and/or prevent further deterioration of critical care condition ( as above ) . JOHN CROW MD Oct 15, 2021 09:42
[2021-10-15] MEDS: ENOXAPARIN 80 MG/0.8 ML (LOVENOX) SYR SC SCH ×2 (09:59→21:34)
--- NOTE | 2021-10-15 10:03 | Diagnostic Imaging Report ---
INDICATION: Hypoxia. TIME OF EXAM: 9:42 AM. COMPARISON: Correlation is made with the prior chest from one day earlier. FINDINGS: The heart size is normal. Worsening consolidation in the right mid and lower lung field is noted. There is infiltrate in the left mid and lower lung field, slightly improved. No effusion is seen. There is no pneumothorax. IMPRESSION: Improved aeration on the left. There is some worsening consolidation of the infiltrate in the right base when compared to the examination of one day earlier. Dictated by: Dictated on workstation # [id number]
--- NOTE | 2021-10-15 12:24 | Pulmonary Progress Note ---
SHANEKA BOSS 10/15/21 1224: Subjective Subjective/Events-last exam The patient is resting comfortably wearing his BIPAP. He has no complaints at this time. Review of Systems General: No Chills, No Night Sweats HEENT: No Head Aches, No Visual Changes, No Eye Pain Pulmonary: No Dyspnea, No Cough Cardiovascular: No: Chest Pain, Palpitations Gastrointestinal: No: Nausea, Vomiting, Abdominal Pain Genitourinary: No Dysuria, No Frequency Musculoskeletal: shoulder pain Neurological: No: Weakness, Numbness, Incoordination, Change in speech, Confusion, Seizures, Other Exam Exam Patient acknowledged, consented, and participated in this virtual visit which was conducted using real time audio/video Vital Signs Date Time Temp Pulse Resp B/P (MAP) Pulse Ox O2 Delivery O2 Flow Rate FiO2 10/15/21 12:00 80 105/69 (81) 97 NIV Bilevel 100.00 10/15/21 11:15 36.2 10/15/21 11:09 NIV Bilevel 100.00 10/15/21 11:00 92 125/73 (90) 90 Vapotherm 40.00 100.00 10/15/21 10:06 93 Vapotherm 40.00 100 10/15/21 10:00 84 28 123/73 (90) 91 Vapotherm 40.00 100.00 10/15/21 09:18 Vapotherm 40.00 100.00 10/15/21 09:00 75 114/72 (86) 95 NIV Bilevel 50.00 10/15/21 08:15 96 Vapotherm 40.00 100 10/15/21 08:00 73 27 92/71 (78) 94 NIV Bilevel 50.00 10/15/21 08:00 35.9 10/15/21 07:06 73 26 94 50.00 10/15/21 07:00 73 10/15/21 07:00 76 104/69 (81) 93 NIV Bilevel 50.00 10/15/21 06:00 71 87/61 (70) 95 NIV Bilevel 50.00 10/15/21 05:36 84 120/79 (91) 93 NIV Bilevel 50.00 10/15/21 05:00 73 90/60 (69) 94 NIV Bilevel 50.00 10/15/21 04:32 84 122/83 (96) 91 NIV Bilevel 50.00 10/15/21 04:30 78 89/62 10/15/21 04:00 35.9 10/15/21 04:00 NIV Bilevel 50 10/15/21 03:30 77 91 NIV Bilevel 50.00 10/15/21 03:00 71 94/63 (73) 94 NIV Bilevel 60.00 10/15/21 02:51 86 125/99 (108) 88 NIV Bilevel 60.00 10/15/21 02:14 71 21 97 60.00 10/15/21 02:00 80 91/67 (75) 97 NIV Bilevel 60.00 10/15/21 01:00 75 103/72 (82) 96 NIV Bilevel 60.00 10/15/21 01:00 75 10/15/21 00:00 NIV Bilevel 60 10/15/21 00:00 35.7 10/15/21 00:00 75 106/64 (78) 95 NIV Bilevel 60.00 10/14/21 23:00 78 101/66 (78) 94 NIV Bilevel 60.00 10/14/21 22:41 NIV Bilevel 60.00 10/14/21 22:00 80 34 140/91 (109) 89 NIV Bilevel 75.00 10/14/21 21:54 80 42 90 60.00 10/14/21 21:00 76 30 123/83 (96) 92 NIV Bilevel 75.00 10/14/21 20:58 78 24 94 60.00 10/14/21 20:23 77 128/90 10/14/21 20:00 80 28 128/90 (100) 91 NIV Bilevel 75.00 10/14/21 20:00 35.3 10/14/21 20:00 NIV Bilevel 60 10/14/21 19:30 77 24 90 60.00 10/14/21 19:00 76 10/14/21 19:00 76 30 108/61 (75) 95 NIV Bilevel 75.00 10/14/21 18:00 73 31 85/59 (68) 95 NIV Bilevel 75.00 10/14/21 17:00 72 22 103/69 (80) 95 NIV Bilevel 75.00 10/14/21 16:00 35.0 10/14/21 16:00 73 25 96/68 (77) 96 NIV Bilevel 75.00 10/14/21 15:11 NIV Bilevel 60 10/14/21 15:00 75 28 97/60 (72) 94 NIV Bilevel 75.00 10/14/21 14:57 75 25 93 60.00 10/14/21 14:00 73 19 91/60 (70) 94 NIV Bilevel 75.00 10/14/21 13:00 70 23 101/65 (77) 96 NIV Bilevel 75.00 10/14/21 12:40 68 I & O 10/15/21 06:59 Intake Total 2320 ml Output Total 1150 ml Balance 1170 ml Height & Weight Height: 5'10.00" Weight: 182lbs. 0.0oz. 82.936277be; 25.79 BMI Method: General Appearance: No Apparent Distress, WD/WN, Anxious, Chronically ill, Othe r (BiPAP) HEENT: PERRL/EOMI, Normal ENT Inspection, Other (dry mucous membranes) Neck: Normal Inspection, Supple Respiratory: No Accessory Muscle Use, No Respiratory Distress, Decreased Breath Sounds Cardiovascular: Regular Rate, Rhythm Capillary Refill: Less Than 3 Seconds Peripheral Pulses: 1+ Dorsalis Pedis (R), 1+ Left Dors-Pedis (L); 2+ Radial Pulses (R), 2+ Radial Pulses (L) Extremity: Normal Inspection, Normal Range of Motion, Non Tender, No Calf Tenderness, No Pedal Edema Neurologic/Psychiatric: Alert, Oriented x3 Skin: Normal Color, Warm/Dry Results Lab Laboratory Tests 10/14/21 04:15 10/15/21 04:53 Assessment/Plan Assessment/Plan Acute hypoxic respiratory failure/ ARDS secondary to COVID infection - Continue vapotherm and Bipap as tolerated -can not do prone position due to shoulder pain - conservative fluid strategy TFIB-Rsrxhvbrzmz-2/COVID-19 PNA - Dexamethasone - Theraputic lovenox for DVT Monitor for superimposed bact PNA - Started on Zosyn 10/14 due to worsening leukocytosis Left lower extremity DVT dx 10/12 - Theraputic Lovenox JOHN CROW MD 10/15/21 1509: Subjective Date Seen by a Provider: Oct 15, 2021 Time Seen by a Provider: 15:08 Supervisory-Addendum Brief Verification & Attestation Participated in pt care: history, MDM, physical Personally performed: exam, history, MDM, supervision of care Care discussed with: Medical Student Procedures: n/a Results interpretation: Verified all documentation A medical student performed and documented this service. I reviewed information documented by the medical student . Medical student performed patients physical exam . Medical decision making was done during tele-rounds with this medical student and a bedside RN . Please see my notes for details /clarification of assessment and plans SHANEKA BOSS Oct 15, 2021 12:24 JOHN CROW MD Oct 15, 2021 15:09
[2021-10-15] MEDS: AtorvaSTATin TABLET 10 MG TABLET PO SCH (20:01)
[2021-10-15] MEDS: traZODone 50 MG (DESYREL) TAB PO SCH (20:01)
[2021-10-15] MEDS: DexMEDEtomidine 250 ML DRIP 250 ML IV SCH (21:41)
[2021-10-15] MEDS: traZODone 100 MG (DESYREL) TAB PO SCH (22:46)
[2021-10-16] VITALS (24 sets, daily range): BP systolic 83–202; BP diastolic 58–117
[2021-10-16] MEDS: PIPERACILLIN SODIUM/TAZOBACTAM 4.5 GM in NS (IVPB) 100 ML IV SCH ×3 (01:54→18:21)
[2021-10-16] MEDS: RT-ALBUTEROL HFA 8.5 GM INHALER IH SCH ×4 (03:27→21:30)
[2021-10-16 04:24] LABS: BASOPHILS # (AUTO) 0.1 10^3/uL (0.0-0.1); BASOPHILS % (AUTO) 0 % (0-10); EOSINOPHILS % (AUTO) 0 % (0-10); HEMATOCRIT 44 % (40-54); HEMOGLOBIN 14.2 g/dL (13.3-17.7); LYMPHOCYTES % (AUTO) 3 % (12-44); MEAN CORPUSCULAR HEMOGLOBIN 29 pg (25-34); MEAN CORPUSCULAR HGB CONC 32 g/dL (32-36); MEAN CORPUSCULAR VOLUME 88 fL (80-99); MEAN PLATELET VOLUME 11.6 fL (9.0-12.2); MONOCYTES # (AUTO) 1.6 10^3/uL (0.0-1.0); MONOCYTES % (AUTO) 5 % (0-12); NEUTROPHILS # (AUTO) 28.1 10^3/uL (1.8-7.8); NEUTROPHILS % (AUTO) 88 % (42-75)
[2021-10-16 04:52] LABS: POTASSIUM 4.7 MMOL/L (3.6-5.0)
[2021-10-16 04:53] LABS: CALCIUM 8.5 MG/DL (8.5-10.1)
[2021-10-16 04:57] LABS: PHOSPHORUS 3.7 MG/DL (2.3-4.7)
[2021-10-16 04:58] LABS: CREATININE SERUM 0.76 MG/DL (0.60-1.30)
[2021-10-16 05:00] LABS: MAGNESIUM 2.4 MG/DL (1.6-2.4)
[2021-10-16] MEDS: POTASSIUM CL 10MEQ/50ML IVPB 50 ML IV SCH (05:04)
[2021-10-16] MEDS: MAGNESIUM 1 GM/100 ML IVPB 100 ML IV SCH (05:09)
[2021-10-16] MEDS: KCL 20 MEQ TAB (K-DUR) PO SCH (05:10)
[2021-10-16] MEDS: inSUlin ASPART (NovoLOG) 1 UNIT/0.01 ML (CHARGE PER UNIT) SQ SCH ×4 (05:10→20:35)
[2021-10-16 05:20] LABS: BAND NEUTROPHILS 3 %; EOSINOPHILS % (MANUAL) 1 %; LYMPHOCYTES % (MANUAL) 2 %; MONOCYTES % (MANUAL) 4 %; NEUTROPHILS % (MANUAL) 89 %
[2021-10-16 05:21] LABS: ATYPICAL LYMPHOCYTES 1 %; RBC MORPH NORMAL
[2021-10-16 05:22] LABS: PLATELET COUNT 231 10^3/uL (130-400)
--- NOTE | 2021-10-16 06:10 | Progress Note - Hospitalist ---
Subjective HPI/CC On Admission Date Seen by Provider: Oct 16, 2021 Time Seen by Provider: 11:00 Admisison Planning May Need Admission (Planning): 08:00 (JAVIER ORDONEZ MD) Progress Progress Note #1: Time: 08:11 Progress Note 51-year-old male presents to the emergency department with his parents chief complaint of increasing shortness of breath, cough, body aches headache, nausea vomiting and diarrhea. Tells us initially that he was seen by [facility] 2 or 3 days ago, tested negative for Covid. Later his father contributes to the history stating that the patient was in fact told that he had pneumonia and was started on an antibiotic however the patient cannot recall what that was when asked. Patient states that he does not and has not ever smoked. He does not work around fumes or smoke. He states his cough is nonproductive. Has had profoundly severe shortness of breath with exertion over the last 24 hours. Takes medication for cholesterol and hypertension although did not take his medicine for hypertension this morning. Denies known sick contacts with Covid. Is not vaccinated. No history of blood clot in family or himself. No recent prolonged immobility or travel. No pain or swelling in his lower extremities. No recent black or bloody stool. Complains that his heart is "racing". Room air sats in the 70s on arrival to the emergency department. Still at 88 to 89% on 12 L per nasal cannula. Patient is noted to have fine rales at the bases bilaterally, moderate respiratory distress. No swelling in his lower extremities. No tenderness in the calves, negative Homans bilaterally. No rashes. Soft nontender abdomen. Dry oral mucosa. Sepsis work-up initiated with Covid and influenza testing. D-dimer pending. Chest x-ray pending. Patient is started on Vapotherm per respiratory therapy. Subjective/Events-last exam Pt about the same Precedex is maxed out Lidocaine patch will be put on the right anterior chest wall Oxycodone will be started instead of Hydrocodone Remains on Vapotherm WC is 32,000 Pt appears to be on the edge of fatigue Review of Systems General: Fatigue, Malaise Pulmonary: Dyspnea, Cough Focused Exam Lactate Level 10/14/21 06:30: Lactic Acid Level 1.38 Objective Exam Vital Signs Vital Signs Date Time Temp Pulse Resp B/P (MAP) Pulse Ox O2 Delivery O2 Flow Rate FiO2 10/17/21 05:15 78 23 123/81 (95) 92 Vapotherm 40.00 100.00 10/17/21 04:00 100 10/17/21 03:50 36.5 Capillary Refill : Less Than 3 Seconds General Appearance: Anxious, Chronically ill, Mild Distress Respiratory: Accessory Muscle Use, Decreased Breath Sounds Cardiovascular: Regular Rate, Rhythm Neurologic/Psychiatric: Alert, Oriented x3 Results/Procedures Lab Laboratory Tests 10/17/21 04:36 Patient resulted labs reviewed. Assessment/Plan Assessment and Plan Assess & Plan/Chief Complaint Assessment: Acute hypoxic respiratory failure now BiPAP dependent COVID-19 pneumonia DVT on anticoagulation Lung mass seen incidentally on CT scan Right-sided chest pain musculoskeletal type Hypertension Plan: BiPAP Vapotherm Anticoagulation 10/14/2021: Supportive care BiPAP 10/15/2021: Supportive care BiPAP Vapotherm Covid protocol meds High risk for intubation 10/16/2021: Complex case Continues to be high risk for intubation Pain control Critical Care Critically Ill Patient DUSTIN IBRAHIM DO Oct 16, 2021 06:10
[2021-10-16] MEDS: CYCLOBENZAPRINE 10 MG (FLEXERIL) TAB PO PRN ×2 (06:28→10:39)
[2021-10-16] MEDS: ALPRAZolam 0.5 MG (XANAX) TAB PO PRN ×2 (06:37→15:47)
[2021-10-16] MEDS: guaiFENesin/DM (ROBITUSSIN DM) 10 ML UDC PO PRN ×2 (06:37→14:05)
[2021-10-16] MEDS: ACYCLOVIR 400 MG TABLET (ZOVIRAX) PO SCH ×2 (08:59→18:20)
[2021-10-16] MEDS: amLODIPine 5 MG (NORVASC) TAB PO SCH (08:59)
[2021-10-16] MEDS: lisINopril 20 MG (PRINIVIL) TABLET PO SCH (08:59)
[2021-10-16] MEDS: FLUCONAZOLE 100 MG/50 ML IVPB IV SCH ×2 (09:04)
[2021-10-16] MEDS: DexMEDEtomidine 250 ML DRIP 250 ML IV SCH ×2 (09:05→20:36)
[2021-10-16] MEDS: ENOXAPARIN 80 MG/0.8 ML (LOVENOX) SYR SC SCH ×2 (09:57→21:43)
[2021-10-16] MEDS: ACETAMINOPHEN 500 MG TAB (TYLENOL) PO PRN (10:39)
--- NOTE | 2021-10-16 11:52 | Tele-ICU Progress Note ---
Subjective Date Seen by a Provider: Oct 16, 2021 Time Seen by a Provider: 11:52 Sepsis Event Evaluation Height, Weight, BMI Height: 5'10.00" Weight: 182lbs. 0.0oz. 82.735653uo; 25.79 BMI Method: Focused Exam Lactate Level 10/14/21 06:30: Lactic Acid Level 1.38 Exam Exam Patient acknowledged, consented, and participated in this virtual visit which was conducted using real time audio/video Vital Signs Date Time Temp Pulse Resp B/P (MAP) Pulse Ox O2 Delivery O2 Flow Rate FiO2 10/16/21 11:20 35.7 10/16/21 11:00 128 135/87 (103) 91 NIV Bilevel 100.00 10/16/21 10:00 99 28 128/78 (95) 91 NIV Bilevel 100.00 10/16/21 09:05 98 202/117 10/16/21 09:00 85 202/117 (152) 84 NIV Bilevel 100.00 10/16/21 08:00 86 25 110/70 (79) 97 NIV Bilevel 100.00 10/16/21 08:00 91 NIV Bilevel 100 10/16/21 07:45 36.5 10/16/21 07:00 94 35 130/88 (97) 92 NIV Bilevel 100.00 10/16/21 07:00 99 10/16/21 06:50 96 32 92 95.00 10/16/21 06:41 91 NIV Bilevel 100.00 10/16/21 06:03 82 30 151/92 (111) 86 NIV Bilevel 50.00 10/16/21 05:12 35.8 10/16/21 05:00 85 15 126/79 (91) 92 NIV Bilevel 50.00 10/16/21 04:36 NIV Bilevel 50.00 10/16/21 04:00 84 36 107/70 (81) 90 NIV Bilevel 40.00 10/16/21 04:00 91 NIV Bilevel 40 10/16/21 03:27 84 31 92 40.00 10/16/21 03:00 82 37 119/78 (94) 88 NIV Bilevel 40.00 10/16/21 02:47 NIV Bilevel 40.00 10/16/21 02:39 81 23 90/63 (69) 96 NIV Bilevel 50.00 10/16/21 02:20 NIV Bilevel 50.00 10/16/21 01:00 84 10/16/21 01:00 85 26 91/62 (71) 95 NIV Bilevel 60.00 10/16/21 00:22 NIV Bilevel 60.00 10/16/21 00:00 35.6 10/16/21 00:00 93 37 120/80 (89) 96 NIV Bilevel 70.00 10/16/21 00:00 94 NIV Bilevel 60 10/15/21 23:28 NIV Bilevel 70.00 10/15/21 23:13 NIV Bilevel 80.00 10/15/21 23:00 101 17 145/100 (117) 95 NIV Bilevel 90.00 10/15/21 22:48 110 136/86 10/15/21 22:00 96 136/86 (102) 94 NIV Bilevel 90.00 10/15/21 21:55 NIV Bilevel 90.00 10/15/21 21:41 97 146/91 10/15/21 21:00 101 146/91 (106) 89 Vapotherm 40.00 100.00 10/15/21 20:24 91 Vapotherm 40.00 100 10/15/21 20:01 90 111/81 10/15/21 20:00 94 Vapotherm 40.00 100 10/15/21 20:00 85 111/81 (88) 96 Vapotherm 40.00 100.00 10/15/21 20:00 35.7 10/15/21 19:00 81 10/15/21 19:00 83 122/78 (88) 94 Vapotherm 40.00 100.00 10/15/21 18:00 92 129/82 (98) 95 Vapotherm 40.00 100.00 10/15/21 17:57 Vapotherm 40.00 100.00 10/15/21 17:00 74 23 136/75 (95) 90 NIV Bilevel 100.00 10/15/21 16:15 96 NIV Bilevel 100 10/15/21 16:00 82 31 114/77 (89) 100 NIV Bilevel 100.00 10/15/21 16:00 35.7 10/15/21 15:00 83 114/77 (89) 100 NIV Bilevel 100.00 10/15/21 14:13 89 Vapotherm 40.00 100 10/15/21 14:04 86 128/78 (95) 91 NIV Bilevel 100.00 10/15/21 13:00 75 131/75 (93) 95 NIV Bilevel 100.00 10/15/21 12:39 96 NIV Bilevel 100 10/15/21 12:34 77 10/15/21 12:00 80 105/69 (81) 97 NIV Bilevel 100.00 I & O 10/16/21 06:59 Intake Total 2475 ml Output Total 1750 ml Balance 725 ml Height & Weight Height: 5'10.00" Weight: 182lbs. 0.0oz. 82.335659tk; 25.79 BMI Method: General Appearance: No Apparent Distress, WD/WN, Anxious, Chronically ill HEENT: PERRL/EOMI, Normal ENT Inspection, Other (dry mucous membranes) Neck: Normal Inspection, Supple Respiratory: No Respiratory Distress, Accessory Muscle Use, Decreased Breath Sounds Cardiovascular: Regular Rate, Rhythm Capillary Refill: Less Than 3 Seconds Peripheral Pulses: 1+ Dorsalis Pedis (R), 1+ Left Dors-Pedis (L); 2+ Radial Pulses (R), 2+ Radial Pulses (L) Extremity: Normal Inspection, Normal Range of Motion, Non Tender, No Calf Tenderness, No Pedal Edema Neurologic/Psychiatric: Alert Skin: Normal Color, Warm/Dry Results Lab Laboratory Tests 10/15/21 04:53 10/16/21 03:30 Assessment/Plan Assessment/Plan (Tele-ICU Physician , Progress Note ) Available chart/ vitals / labs / Images reviewed Video assessment done using teleICU camera, rest of exam as per RN Discussed with RN , EXAM PER RN Events overnight : Afebrile I/O = positive Drips: Pressors: , hemodynamically stable Consultants: Hospital course: (10/08) 77 y/o female admitted for COVID+, transfer from other facility - , VT 20L 70% 10/09 changed to BIPAP 10/10 Bipap 100% _ precedex 0.4 10/11 - VT 35/80% prn bipap , precedex 0.4 - LEFT LE DVT 10/14 - VT 60L 75% , , BIPAP 60%- precedex 1.0, STARTED ZOSYN 10/15 - VT 40 100% , worsenign cxr on right , worsenign right sided pain A/P AHRF / ARDS due to severe COVID19 ( CTA neg for pe 10/07 - in other facility , reportedly - did not see report personally - VT 40 100% ,, precedex 1.4 -RIGHT SIDE PAIN CORRELATES WITH WORSENING INFILTRATE ON RIGHT SIDE - cont pain control and ABX EUUX-Gzuxeccwdtb-2/COVID-19 PNA ( Symptom onset unknown now DX unvaccinted --Dexamethasone - chanhged to 10 qd with wheexing 10/10 -Hypercoagulable state -> lovenox ppx dose , CTA neg for pe 10/06 - DDIMER > 20- 10/11 --> + DVT -> Full dose lovenox ( not stable for CT to assess for PE Pneumomediastinum on ct 10/06 - not seen on cxr f/up RLL PNA - started on Zosyn 10/14 Left lower extremity DVT dx 10/12 - fill dose lovenox Hyperglycemia - ISS , close f/up on steroids Lines : periph ( Central Line Necessity Reviewed) Hurd: 10/08 OG: Nutrition: po Analgesia: Anxiety/ delirium = precedex VTE Prophylaxis: steve 80 bid Stress Ulcer Prophylaxis: po Plans in collaboration with bedside consultants and IM MDs. Discussed with RN to reach out if any questions or concerns A total of 35 minutes of critical care time was devoted to this patient today, required to treat and/or prevent further deterioration of critical care condition ( as above ) . JOHN CROW MD Oct 16, 2021 11:52
[2021-10-16] MEDS ORDERED: LIDOCAINE 4% (SALONPAS) PATCH ONE (12:28)
[2021-10-16] MEDS: LIDOCAINE 4% (SALONPAS) PATCH TOP SCH (12:36)
[2021-10-16] MEDS: traZODone 50 MG (DESYREL) TAB PO SCH (20:35)
[2021-10-16] MEDS: AtorvaSTATin TABLET 10 MG TABLET PO SCH (20:35)
[2021-10-16] MEDS: traZODone 100 MG (DESYREL) TAB PO SCH (20:35)
[2021-10-17] VITALS (27 sets, daily range): BP systolic 83–180; BP diastolic 51–107
[2021-10-17] MEDS: PIPERACILLIN SODIUM/TAZOBACTAM 4.5 GM in NS (IVPB) 100 ML IV SCH ×3 (00:47→17:21)
[2021-10-17] MEDS: CYCLOBENZAPRINE 10 MG (FLEXERIL) TAB PO PRN ×2 (00:55→20:24)
[2021-10-17] MEDS: RT-ALBUTEROL HFA 8.5 GM INHALER IH SCH ×4 (02:33→22:18)
[2021-10-17] MEDS: ALPRAZolam 0.5 MG (XANAX) TAB PO PRN ×2 (03:01→17:22)
[2021-10-17] MEDS: ACETAMINOPHEN 500 MG TAB (TYLENOL) PO PRN (03:01)
[2021-10-17 04:58] LABS: POTASSIUM 4.5 MMOL/L (3.6-5.0)
[2021-10-17 05:03] LABS: PHOSPHORUS 4.1 MG/DL (2.3-4.7)
[2021-10-17 05:04] LABS: CREATININE SERUM 0.79 MG/DL (0.60-1.30)
[2021-10-17] MEDS: POTASSIUM CL 10MEQ/50ML IVPB 50 ML IV SCH (05:05)
[2021-10-17] MEDS: inSUlin ASPART (NovoLOG) 1 UNIT/0.01 ML (CHARGE PER UNIT) SQ SCH ×4 (05:05→20:24)
[2021-10-17] MEDS: KCL 20 MEQ TAB (K-DUR) PO SCH (05:05)
[2021-10-17 05:06] LABS: MAGNESIUM 2.4 MG/DL (1.6-2.4)
--- NOTE | 2021-10-17 05:09 | Diagnostic Imaging Report ---
EXAMINATION: Chest 1 view HISTORY: Pneumonia COMPARISON: 10/15/2021 FINDINGS: Heart size and pulmonary vasculature are stable. Stable right mid and lower lung airspace opacities. Stable mild left lower lung airspace opacities. No significant pleural effusion or pneumothorax. The osseous structures are intact. IMPRESSION: 1. Stable right mid and lower lung and left lower lung opacities compared to 10/15/2021. Dictated by: Dictated on workstation # [id number]
[2021-10-17 06:09] LABS: BASOPHILS # (AUTO) 0.1 10^3/uL (0.0-0.1); BASOPHILS % (AUTO) 0 % (0-10); EOSINOPHILS # (AUTO) 0.1 10^3/uL (0.0-0.3); EOSINOPHILS % (AUTO) 0 % (0-10); HEMATOCRIT 49 % (40-54); HEMOGLOBIN 15.6 g/dL (13.3-17.7); LYMPHOCYTES # (AUTO) 1.1 10^3/uL (1.0-4.0); LYMPHOCYTES % (AUTO) 3 % (12-44); MEAN CORPUSCULAR HEMOGLOBIN 28 pg (25-34); MEAN CORPUSCULAR HGB CONC 32 g/dL (32-36); MEAN CORPUSCULAR VOLUME 88 fL (80-99); MEAN PLATELET VOLUME 11.2 fL (9.0-12.2); MONOCYTES # (AUTO) 2.1 10^3/uL (0.0-1.0); MONOCYTES % (AUTO) 6 % (0-12); NEUTROPHILS # (AUTO) 30.1 10^3/uL (1.8-7.8); NEUTROPHILS % (AUTO) 87 % (42-75); PLATELET COUNT 246 10^3/uL (130-400)
[2021-10-17 06:25] LABS: WHITE BLOOD COUNT 34.8 10^3/uL (4.3-11.0)
[2021-10-17] MEDS: MAGNESIUM 1 GM/100 ML IVPB 100 ML IV SCH (06:26)
--- NOTE | 2021-10-17 06:51 | Progress Note - Hospitalist ---
Subjective HPI/CC On Admission Date Seen by Provider: Oct 17, 2021 Time Seen by Provider: 10:00 Admisison Planning May Need Admission (Planning): 08:00 (JAVIER ORDONEZ MD) Progress Progress Note #1: Time: 08:11 Progress Note 51-year-old male presents to the emergency department with his parents chief complaint of increasing shortness of breath, cough, body aches headache, nausea vomiting and diarrhea. Tells us initially that he was seen by [facility] 2 or 3 days ago, tested negative for Covid. Later his father contributes to the history stating that the patient was in fact told that he had pneumonia and was started on an antibiotic however the patient cannot recall what that was when asked. Patient states that he does not and has not ever smoked. He does not work around fumes or smoke. He states his cough is nonproductive. Has had profoundly severe shortness of breath with exertion over the last 24 hours. Takes medication for cholesterol and hypertension although did not take his medicine for hypertension this morning. Denies known sick contacts with Covid. Is not vaccinated. No history of blood clot in family or himself. No recent prolonged immobility or travel. No pain or swelling in his lower extremities. No recent black or bloody stool. Complains that his heart is "racing". Room air sats in the 70s on arrival to the emergency department. Still at 88 to 89% on 12 L per nasal cannula. Patient is noted to have fine rales at the bases bilaterally, moderate respiratory distress. No swelling in his lower extremities. No tenderness in the calves, negative Homans bilaterally. No rashes. Soft nontender abdomen. Dry oral mucosa. Sepsis work-up initiated with Covid and influenza testing. D-dimer pending. Chest x-ray pending. Patient is started on Vapotherm per respiratory therapy. Subjective/Events-last exam Pt still having a rough time WBC 34.8 On max Vapotherm 40 liters at 100% BiPAP is on 100% but feels like he is doing better He is on his side Review of Systems General: Fatigue, Malaise Neurological: Weakness Objective Exam Vital Signs Vital Signs Date Time Temp Pulse Resp B/P (MAP) Pulse Ox O2 Delivery O2 Flow Rate FiO2 10/18/21 04:00 71 18 83/56 (65) NIV Bilevel 90.00 10/18/21 03:59 94 100 10/18/21 03:29 36.0 Capillary Refill : Less Than 3 Seconds General Appearance: WD/WN, Anxious, Chronically ill, Mild Distress Respiratory: No Accessory Muscle Use, No Respiratory Distress, Decreased Breath Sounds Cardiovascular: Regular Rate, Rhythm Neurologic/Psychiatric: Alert, Oriented x3, No Motor/Sensory Deficits, Normal Mood/Affect Results/Procedures Lab Laboratory Tests 10/17/21 05:50 10/18/21 04:30 Patient resulted labs reviewed. Assessment/Plan Assessment and Plan Assess & Plan/Chief Complaint Assessment: Acute hypoxic respiratory failure now BiPAP dependent COVID-19 pneumonia DVT on anticoagulation Lung mass seen incidentally on CT scan Right-sided chest pain musculoskeletal type Hypertension Plan: BiPAP Vapotherm Anticoagulation 10/14/2021: Supportive care BiPAP 10/15/2021: Supportive care BiPAP Vapotherm Covid protocol meds High risk for intubation 10/16/2021: Complex case Continues to be high risk for intubation Pain control 10/17/2021: BiPAP Max Vapotherm Aggressive IV medication Critical Care Critically Ill Patient DUSTIN IBRAHIM DO Oct 17, 2021 06:51
[2021-10-17] MEDS: FLUCONAZOLE 100 MG/50 ML IVPB IV SCH ×2 (08:31)
[2021-10-17] MEDS: DexMEDEtomidine 250 ML DRIP 250 ML IV SCH ×2 (08:32→17:55)
[2021-10-17] MEDS: ACYCLOVIR 400 MG TABLET (ZOVIRAX) PO SCH ×2 (08:32→17:21)
[2021-10-17] MEDS: LIDOCAINE 4% (SALONPAS) PATCH TOP SCH (08:32)
[2021-10-17] MEDS: guaiFENesin/DM (ROBITUSSIN DM) 10 ML UDC PO PRN ×2 (08:32→13:12)
[2021-10-17] MEDS: amLODIPine 5 MG (NORVASC) TAB PO SCH (08:33)
[2021-10-17] MEDS: lisINopril 20 MG (PRINIVIL) TABLET PO SCH (08:33)
[2021-10-17 10:11] LABS: ALBUMIN 3.3 GM/DL (3.2-4.5)
[2021-10-17 10:14] LABS: TOTAL PROTEIN 6.4 GM/DL (6.4-8.2)
[2021-10-17 10:16] LABS: BILIRUBIN,TOTAL 0.8 MG/DL (0.1-1.0)
[2021-10-17 10:20] LABS: BILIRUBIN,DIRECT 0.2 MG/DL (0.0-0.3); BILIRUBIN,INDIRECT 0.6 MG/DL
[2021-10-17] MEDS: ENOXAPARIN 80 MG/0.8 ML (LOVENOX) SYR SC SCH ×2 (10:55→22:09)
--- NOTE | 2021-10-17 11:33 | Tele-ICU Progress Note ---
Subjective Date Seen by a Provider: Oct 17, 2021 Time Seen by a Provider: 11:33 Sepsis Event Evaluation Height, Weight, BMI Height: 5'10.00" Weight: 182lbs. 0.0oz. 82.904756pa; 25.79 BMI Method: Exam Exam Patient acknowledged, consented, and participated in this virtual visit which was conducted using real time audio/video Vital Signs Date Time Temp Pulse Resp B/P (MAP) Pulse Ox O2 Delivery O2 Flow Rate FiO2 10/17/21 11:20 35.9 10/17/21 11:00 83 20 100/72 (77) 89 NIV Bilevel 100.00 10/17/21 10:48 89 33 91 100.00 10/17/21 10:00 87 21 110/69 (81) 90 NIV Bilevel 100.00 10/17/21 09:50 NIV Bilevel 100.00 10/17/21 09:00 90 21 99/60 (66) 87 Vapotherm 40.00 100.00 10/17/21 08:32 101 107/68 10/17/21 08:30 95 NIV Bilevel 40.00 100 10/17/21 08:20 Vapotherm 40.00 100 10/17/21 08:00 91 21 105/64 (76) 96 Vapotherm 40.00 100.00 10/17/21 07:45 36.8 10/17/21 07:00 92 22 83/51 (60) 94 Vapotherm 40.00 100.00 10/17/21 07:00 98 10/17/21 06:00 101 21 107/68 (81) 88 Vapotherm 40.00 100.00 10/17/21 05:15 78 23 123/81 (95) 92 Vapotherm 40.00 100.00 10/17/21 04:00 95 NIV Bilevel 100 10/17/21 04:00 120 99/76 (84) 95 NIV Bilevel 90.00 10/17/21 03:50 36.5 95 NIV Bilevel 90.00 10/17/21 03:00 120 38 180/107 (131) 90 NIV Bilevel 100.00 10/17/21 02:40 NIV Bilevel 100.00 10/17/21 02:33 96 32 92 95.00 10/17/21 02:00 97 28 149/77 (91) 92 Vapotherm 35.00 80.00 10/17/21 01:15 94 Vapotherm 35.00 80.00 10/17/21 01:00 88 10/17/21 01:00 91 36 116/79 (91) 91 Vapotherm 35.00 85.00 10/17/21 00:48 36.8 10/17/21 00:00 93 Vapotherm 35.00 85 10/17/21 00:00 91 39 115/77 (90) 92 Vapotherm 35.00 85.00 10/17/21 00:00 115/77 (86) Vapotherm 35.00 85.00 10/16/21 23:00 92 34 112/75 (83) 94 Vapotherm 35.00 85.00 10/16/21 22:00 101 38 134/91 (106) 88 Vapotherm 35.00 85.00 10/16/21 21:30 97 Vapotherm 35.00 85 10/16/21 21:00 95 32 123/86 (95) 92 Vapotherm 35.00 85.00 10/16/21 20:36 132/95 10/16/21 20:02 35.8 10/16/21 20:00 96 36 132/95 (104) 92 Vapotherm 35.00 85.00 10/16/21 20:00 93 Vapotherm 35.00 85 10/16/21 19:28 Vapotherm 35.00 85.00 10/16/21 19:00 98 37 136/84 (99) 86 Vapotherm 35.00 85.00 10/16/21 19:00 102 10/16/21 18:38 92 Vapotherm 35.00 85 10/16/21 18:00 82 20 98/75 (83) 95 Vapotherm 35.00 85.00 10/16/21 17:00 82 16 83/58 (66) 99 Vapotherm 35.00 85.00 10/16/21 16:02 35.9 10/16/21 16:00 91 NIV Bilevel 100 10/16/21 16:00 90 24 114/69 (84) 94 Vapotherm 35.00 85.00 10/16/21 15:52 Vapotherm 35.00 85.00 10/16/21 15:49 Vapotherm 40.00 90.00 10/16/21 15:00 91 38 105/70 (82) 98 NIV Bilevel 100.00 10/16/21 14:19 97 Vapotherm 40.00 100 10/16/21 14:00 98 24 124/78 (93) 95 NIV Bilevel 100.00 10/16/21 13:00 95 10/16/21 13:00 101 31 129/80 (96) 90 NIV Bilevel 100.00 10/16/21 12:00 98 20 116/86 (96) 96 NIV Bilevel 100.00 10/16/21 12:00 91 NIV Bilevel 100 I & O 10/17/21 07:00 Intake Total 3385 ml Output Total 1400 ml Balance 1985 ml Height & Weight Height: 5'10.00" Weight: 182lbs. 0.0oz. 82.822036lm; 25.79 BMI Method: General Appearance: Anxious, Chronically ill, Mild Distress HEENT: PERRL/EOMI, Normal ENT Inspection, Other (dry mucous membranes) Neck: Normal Inspection, Supple Respiratory: Accessory Muscle Use, Decreased Breath Sounds Cardiovascular: Regular Rate, Rhythm Capillary Refill: Less Than 3 Seconds Peripheral Pulses: 1+ Dorsalis Pedis (R), 1+ Left Dors-Pedis (L); 2+ Radial Pulses (R), 2+ Radial Pulses (L) Extremity: Normal Inspection, Normal Range of Motion, Non Tender, No Calf Tenderness, No Pedal Edema Neurologic/Psychiatric: Alert, Oriented x3 Skin: Normal Color, Warm/Dry Results Lab Laboratory Tests 10/16/21 03:30 10/17/21 04:36 10/17/21 05:50 Assessment/Plan Assessment/Plan (Tele-ICU Physician , Progress Note ) Available chart/ vitals / labs / Images reviewed Video assessment done using teleICU camera, rest of exam as per RN Discussed with RN , EXAM PER RN Events overnight : Afebrile I/O = positive Drips: Pressors: , hemodynamically stable Consultants: Hospital course: (10/08) 77 y/o female admitted for COVID+, transfer from other facility - , VT 20L 70% 10/09 changed to BIPAP 10/10 Bipap 15 / 100% _ precedex 0.4 10/11 - VT 35/80% prn bipap , precedex 0.4 - LEFT LE DVT 10/14 - VT 60L 75% , , BIPAP 60%- precedex 1.0, STARTED ZOSYN 10/15 - VT 40 100% , worsenign cxr on right , worsenign right sided pain 10/17 VT 40-100%----BIPAP1//100% FIO2. WITH SATS 89-91% RANGE. REFUSED TO PRONE A/P AHRF / ARDS due to severe COVID19 ( CTA neg for pe 10/07 - in other facility , reportedly - did not see report personally - VT 40 100% ,, precedex 1.4 -RIGHT SIDE PAIN CORRELATES WITH WORSENING INFILTRATE ON RIGHT SIDE - cont pain control and ABX NLNM-Bnvxwrcasfa-0/COVID-19 PNA ( Symptom onset unknown now DX unvaccinted --Dexamethasone - chanhged to 10 qd with wheexing 10/10 -Hypercoagulable state -> lovenox ppx dose , CTA neg for pe 10/06 - DDIMER > 20- 10/11 --> + DVT -> Full dose lovenox ( not stable for CT to assess for PE Pneumomediastinum on ct 10/06 - not seen on cxr f/up RLL PNA - started on Zosyn 10/14 Left lower extremity DVT dx 10/12 - fill dose lovenox Hyperglycemia - ISS , close f/up on steroids Lines : periph ( Central Line Necessity Reviewed) Hurd: 10/08 OG: Nutrition: po Analgesia: Anxiety/ delirium = precedex VTE Prophylaxis: steve 80 bid Stress Ulcer Prophylaxis: po CODE STATUS. FULL CODE Plans in collaboration with bedside consultants and IM MDs. Discussed with RN to reach out if any questions or concerns A total of 25 minutes of critical care time was devoted to this patient today, required to treat and/or prevent further deterioration of critical care condition ( as above ) . Critical Care: Critically Ill Patient Time spent with patient (mins): 25 MIRNA TOBAR MD Oct 17, 2021 11:33
[2021-10-17] MEDS: traZODone 50 MG (DESYREL) TAB PO SCH (19:44)
[2021-10-17] MEDS: traZODone 100 MG (DESYREL) TAB PO SCH (19:44)
[2021-10-17] MEDS: AtorvaSTATin TABLET 10 MG TABLET PO SCH (19:44)
[2021-10-18] VITALS (28 sets, daily range): BP systolic 73–146; BP diastolic 50–95
[2021-10-18] MEDS: PIPERACILLIN SODIUM/TAZOBACTAM 4.5 GM in NS (IVPB) 100 ML IV SCH ×3 (01:11→18:18)
[2021-10-18] MEDS: RT-ALBUTEROL HFA 8.5 GM INHALER IH SCH ×4 (02:20→19:36)
[2021-10-18] MEDS: DexMEDEtomidine 250 ML DRIP 250 ML IV SCH ×3 (03:28→22:13)
[2021-10-18 03:39] LABS: ABG BASE EXCESS 4.3 MMOL/L (-2.5-2.5); ABG OXYGEN SATURATION 95 % (94-100); ABG PCO2 50 MMHG (35-45); ABG PH 7.38 (7.37-7.43); ABG PO2 73 MMHG (79-93); ABG TCO2 30.9 MMOL/L (21.0-31.0)
[2021-10-18 03:40] LABS: ALLENS TEST POSITIVE
[2021-10-18 03:41] LABS: INSPIRED O2 BIPAP 90%; PATIENT TEMP 36; VENTILATOR NO
[2021-10-18 04:49] LABS: BASOPHILS # (AUTO) 0.1 10^3/uL (0.0-0.1); BASOPHILS % (AUTO) 0 % (0-10); EOSINOPHILS % (AUTO) 0 % (0-10); HEMATOCRIT 42 % (40-54); HEMOGLOBIN 13.6 g/dL (13.3-17.7); LYMPHOCYTES # (AUTO) 0.9 10^3/uL (1.0-4.0); LYMPHOCYTES % (AUTO) 3 % (12-44); MEAN CORPUSCULAR HEMOGLOBIN 29 pg (25-34); MEAN CORPUSCULAR HGB CONC 32 g/dL (32-36); MEAN CORPUSCULAR VOLUME 89 fL (80-99); MEAN PLATELET VOLUME 10.8 fL (9.0-12.2); MONOCYTES # (AUTO) 1.9 10^3/uL (0.0-1.0); MONOCYTES % (AUTO) 7 % (0-12); NEUTROPHILS # (AUTO) 23.4 10^3/uL (1.8-7.8); NEUTROPHILS % (AUTO) 86 % (42-75); PLATELET COUNT 233 10^3/uL (130-400); WHITE BLOOD COUNT 27.3 10^3/uL (4.3-11.0)
[2021-10-18 05:02] LABS: ALBUMIN 2.8 GM/DL (3.2-4.5); POTASSIUM 4.3 MMOL/L (3.6-5.0)
[2021-10-18 05:03] LABS: CALCIUM 8.6 MG/DL (8.5-10.1)
[2021-10-18 05:04] LABS: TOTAL PROTEIN 5.5 GM/DL (6.4-8.2)
[2021-10-18 05:06] LABS: BILIRUBIN,TOTAL 0.5 MG/DL (0.1-1.0)
[2021-10-18 05:07] LABS: PHOSPHORUS 3.9 MG/DL (2.3-4.7)
[2021-10-18 05:08] LABS: CREATININE SERUM 0.77 MG/DL (0.60-1.30)
[2021-10-18 05:11] LABS: MAGNESIUM 2.4 MG/DL (1.6-2.4)
[2021-10-18] MEDS: POTASSIUM CL 10MEQ/50ML IVPB 50 ML IV SCH (05:14)
[2021-10-18] MEDS: KCL 20 MEQ TAB (K-DUR) PO SCH (05:15)
[2021-10-18] MEDS: inSUlin ASPART (NovoLOG) 1 UNIT/0.01 ML (CHARGE PER UNIT) SQ SCH ×3 (05:15→18:17)
[2021-10-18] MEDS: MAGNESIUM 1 GM/100 ML IVPB 100 ML IV SCH (05:15)
[2021-10-18 05:22] LABS: ATYPICAL LYMPHOCYTES 2 %; BAND NEUTROPHILS 3 %; LYMPHOCYTES % (MANUAL) 4 %; MONOCYTES % (MANUAL) 5 %; NEUTROPHILS % (MANUAL) 85 %; PROLYMPHOCYTE % 1 %; RBC MORPH NORMAL; TOXIC GRANULATION/VACUOLAZATIO 1+
--- NOTE | 2021-10-18 08:50 | Tele-ICU Progress Note ---
Subjective Date Seen by a Provider: Oct 18, 2021 Time Seen by a Provider: 08:50 Subjective/Events-last exam Today this a.m. when he was tried briefly on Vapotherm to give him breakfast he became hypoxic and subsequently put on BiPAP ventilation. However he developed supraventricular tachycardia with a heart rate of 210/min with a hypotensive episode with respiratory distress and respiratory rate in the 60s oxygen satur ation dropped to 75%. Hence we have decided to intubate him. Meanwhile we had to give Lopressor 5 mg IV push for control of his supraventricular tachycardia. Anesthesia was called and he was intubated. After intubation patient became hypotensive and bradycardic and he subsequently had a cardiac arrest and CPR is done. Please see the CPR sheet for details. Attending physician arrived and participated in the CPR and I was assisting him. After he got ROSC a chest x- ray done which showed a right-sided tension pneumothorax. Immediately is a chest tube and a CVC catheter was placed and subsequently put on mechanical ventilation. He is still hypotensive requiring Levophed and subsequently Rafa- Synephrine. He is acidotic and hypoxic despite being a PEEP at 18 and respiratory rate of 26. As patient is agitated 1 dose of Nimbex is given. A repeat blood gases. he is evaluated multiple times via video visit and cxr evaluated. and d/w rn and bedside physician. Review of Systems ros per rn Sepsis Event Evaluation Height, Weight, BMI Height: 5'10.00" Weight: 182lbs. 0.0oz. 82.787864ys; 25.79 BMI Method: Exam Exam Patient acknowledged, consented, and participated in this virtual visit which was conducted using real time audio/video Vital Signs Date Time Temp Pulse Resp B/P (MAP) Pulse Ox O2 Delivery O2 Flow Rate FiO2 10/18/21 08:00 35.2 10/18/21 07:56 75 17 96 90.00 10/18/21 07:12 77 10/18/21 04:00 71 18 83/56 (65) NIV Bilevel 90.00 10/18/21 03:59 94 NIV Bilevel 40.00 100 10/18/21 03:29 36.0 NIV Bilevel 90.00 10/18/21 03:28 73 10/18/21 03:00 73 18 86/54 (65) NIV Bilevel 100.00 10/18/21 02:20 75 17 96 100.00 10/18/21 02:00 74 17 92/60 (71) 93 NIV Bilevel 100.00 10/18/21 01:00 74 15 101/60 (74) 92 NIV Bilevel 100.00 10/18/21 01:00 74 10/18/21 00:00 94 NIV Bilevel 40.00 100 10/18/21 00:00 36.1 10/17/21 23:00 75 16 96/66 (73) 94 NIV Bilevel 100.00 10/17/21 22:18 94 24 94 100.00 10/17/21 22:00 86 26 108/84 (95) 94 NIV Bilevel 100.00 10/17/21 21:00 80 18 99/67 (76) 95 NIV Bilevel 100.00 10/17/21 20:30 NIV Bilevel 100.00 10/17/21 20:26 35.6 94 91 100 10/17/21 20:00 35.6 10/17/21 20:00 78 21 99/54 (70) 92 Vapotherm 40.00 100.00 10/17/21 20:00 90 Vapotherm 40.00 100 10/17/21 19:51 Vapotherm 40.00 100.00 10/17/21 19:35 94 25 90 100.00 10/17/21 19:00 88 25 109/71 (84) 92 NIV Bilevel 100.00 10/17/21 19:00 85 10/17/21 18:00 88 29 117/70 (86) 90 NIV Bilevel 100.00 10/17/21 17:55 80 99/61 10/17/21 17:00 83 27 116/77 (90) 90 NIV Bilevel 100.00 10/17/21 16:00 80 99/61 (74) 89 NIV Bilevel 100.00 10/17/21 16:00 90 NIV Bilevel 100 10/17/21 16:00 35.7 10/17/21 15:04 87 38 90 100.00 10/17/21 15:00 86 24 98/60 (73) 87 NIV Bilevel 100.00 10/17/21 14:00 87 32 107/64 (69) 90 NIV Bilevel 100.00 10/17/21 13:00 82 10/17/21 13:00 82 18 100/59 (71) 94 NIV Bilevel 100.00 10/17/21 12:00 84 24 104/64 (77) 90 NIV Bilevel 100.00 10/17/21 11:30 90 NIV Bilevel 100 10/17/21 11:20 35.9 10/17/21 11:00 83 20 100/72 (77) 89 NIV Bilevel 100.00 10/17/21 10:48 89 33 91 100.00 10/17/21 10:00 87 21 110/69 (81) 90 NIV Bilevel 100.00 10/17/21 09:50 NIV Bilevel 100.00 10/17/21 09:00 90 21 99/60 (66) 87 Vapotherm 40.00 100.00 I & O 10/18/21 07:00 Intake Total 1345 ml Output Total 1200 ml Balance 145 ml Height & Weight Height: 5'10.00" Weight: 182lbs. 0.0oz. 82.497428xx; 25.79 BMI Method: General Appearance: WD/WN, Anxious, Chronically ill, Mild Distress HEENT: PERRL/EOMI, Normal ENT Inspection, Other (dry mucous membranes) Neck: Normal Inspection, Supple Respiratory: No Accessory Muscle Use, No Respiratory Distress, Decreased Breath Sounds Cardiovascular: Regular Rate, Rhythm Capillary Refill: Less Than 3 Seconds Peripheral Pulses: 1+ Dorsalis Pedis (R), 1+ Left Dors-Pedis (L); 2+ Radial Pulses (R), 2+ Radial Pulses (L) Extremity: Normal Inspection, Normal Range of Motion, Non Tender, No Calf Tenderness, No Pedal Edema Neurologic/Psychiatric: Alert, Oriented x3, No Motor/Sensory Deficits, Normal Mood/Affect Skin: Normal Color, Warm/Dry Other comments PE PER RN Results Lab Laboratory Tests 10/17/21 04:36 10/17/21 05:50 10/18/21 04:30 Assessment/Plan Assessment/Plan 1. SEVERE ARDS DUE TO COVID-19 VIRAL PNEUMONIA. 2.TENSION PNEUMOTHORAX FOLLOWING INTUBATION. S/P CHEST TUBE INSERTION. 3. PEA CARDIAC ARREST FOLLOWING INTUBATION COULD BE DUE TO TENSION PNEUMOTHORAX. 4.. HYPOTENSION FOLLOWING CARDIAC ARREST. RECOMMENDATIONS. 1. VENT SETTINGS AC 26/325/100%/PEEP18. WILL REPEAT ABGS THIS AFTERNOON AGAIN. 2. CONTINUE SEDATION WITH FENTANYL,VERSED, PROPAFOL, NIMBEX IF NEEDED. 3. LEVOPHED, NEOSYNEPHRINE AND VASOPRESSIN FOR HYPOTENSION AND TITRATE NEEDED. 4. CONTINUE CHEST TUBE TO SUCTION PER GEN. SURGERY. 5.DVT AND ULCER PROPHYLAXIS 6. ANTIBIOTICS PER PCP. 7. PROGNOSIS POOR Critical Care: Ventilator Management Time spent with patient (mins): 90 MIRNA TOBAR MD Oct 18, 2021 08:50
[2021-10-18] MEDS: ACYCLOVIR 400 MG TABLET (ZOVIRAX) PO SCH ×2 (09:15→18:18)
[2021-10-18] MEDS ORDERED: morphine INJ 4 MG/ML 1 ML (VIAL/SYRINGE) ONE (09:16)
[2021-10-18] MEDS ORDERED: meTOprolol 5 MG/5 ML (LOPRESSOR) VIAL ONE (09:21)
[2021-10-18] MEDS ORDERED: fentaNYL DRIP PRE-MIX 250 ML IV ONE (09:32)
[2021-10-18] MEDS ORDERED: PROPOFOL DRIP (ICU) 100 ML IV ONE (09:32)
[2021-10-18] MEDS ORDERED: LACTATED RINGERS 1,000 ML IV SCH (09:41)
[2021-10-18] MEDS ORDERED: LACTATED RINGERS 1,000 ML IV ONE (09:41)
[2021-10-18] MEDS ORDERED: NOREPINEPHRINE 8 MG/250 ML 250 ML IV ONE ×2 (09:41→09:58)
[2021-10-18] MEDS ORDERED: VASOPRESSIN INJECTION 20 UNIT/ML VIAL ONE (09:59)
[2021-10-18] MEDS ORDERED: NS (IVPB) 100 ML ONE (09:59)
[2021-10-18] MEDS ORDERED: LIDOCAINE 1% INJ 20 ML VIAL ONE (10:11)
--- NOTE | 2021-10-18 10:24 | Diagnostic Imaging Report ---
INDICATION: Intubated. Respiratory failure. COMPARISON: 10/17/2021. FINDINGS: Single view of the chest demonstrates a large right-sided pneumothorax with mediastinal shift. The ET tube and NG tube appear to be in good position. The heart is prominent. Infiltrates are seen in the left hemithorax. IMPRESSION: 1. Large right-sided pneumothorax with mediastinal shift. 2. Well-positioned ET tube and NG tube. Report called to the ICU in [place]. Information relayed to the clinician. Dictated by: Dictated on workstation # [id number]
--- NOTE | 2021-10-18 10:25 | Progress Note - Hospitalist ---
Subjective HPI/CC On Admission Date Seen by Provider: Oct 18, 2021 Time Seen by Provider: 10:15 Admisison Planning May Need Admission (Planning): 08:00 (JAVIER ORDONEZ MD) Progress Progress Note #1: Time: 08:11 Progress Note 51-year-old male presents to the emergency department with his parents chief complaint of increasing shortness of breath, cough, body aches headache, nausea vomiting and diarrhea. Tells us initially that he was seen by [facility] 2 or 3 days ago, tested negative for Covid. Later his father contributes to the history stating that the patient was in fact told that he had pneumonia and was started on an antibiotic however the patient cannot recall what that was when asked. Patient states that he does not and has not ever smoked. He does not work around fumes or smoke. He states his cough is nonproductive. Has had profoundly severe shortness of breath with exertion over the last 24 hours. Takes medication for cholesterol and hypertension although did not take his medicine for hypertension this morning. Denies known sick contacts with Covid. Is not vaccinated. No history of blood clot in family or himself. No recent prolonged immobility or travel. No pain or swelling in his lower extremities. No recent black or bloody stool. Complains that his heart is "racing". Room air sats in the 70s on arrival to the emergency department. Still at 88 to 89% on 12 L per nasal cannula. Patient is noted to have fine rales at the bases bilaterally, moderate respiratory distress. No swelling in his lower extremities. No tenderness in the calves, negative Homans bilaterally. No rashes. Soft nontender abdomen. Dry oral mucosa. Sepsis work-up initiated with Covid and influenza testing. D-dimer pending. Chest x-ray pending. Patient is started on Vapotherm per respiratory therapy. Subjective/Events-last exam Major issues this morning He became tachypneic and desaturation noted when he was eating his breakfast and nothing could be done to increase his O2 sat so he was emergently intubated, went into cardiac arrest and compressions performed for 20 minutes and several rounds of Epi and did return to spontaneous circulation then he went into cardiac arrest again, once again a couple of rounds of Epi and compressions and returned to spontaneous circulations. He had a a pneumothorax on the right, chest tube placed by Dr. Wolfe. Lactic acid elevated, will increase IV fluids. Sinus tachycardia was assessed but converted over to AF with RVR new onset, Amiodarone started by EICU and consulted cardiology. Overall his white count remained very high at 31 and three phone conversations were initiated to the brother who is a hospitalist who manages Covid patients in [place]. Focused Exam Lactate Level 10/18/21 10:10: Lactic Acid Level 11.21*H 10/18/21 13:13: Lactic Acid Level 1.40 Lactic Acid Level Objective Exam Vital Signs Vital Signs Date Time Temp Pulse Resp B/P (MAP) Pulse Ox O2 Delivery O2 Flow Rate FiO2 10/19/21 04:48 Mechanical Ventilator 60.00 10/19/21 04:37 84 136/60 10/19/21 04:00 94 60 10/19/21 04:00 38.0 10/19/21 04:00 26 Capillary Refill : Less Than 3 Seconds General Appearance: Chronically ill, Other (Sedated and intubated) Respiratory: No Accessory Muscle Use, No Respiratory Distress, Decreased Breath Sounds Cardiovascular: Regular Rate, Rhythm Results/Procedures Lab Laboratory Tests 10/18/21 10:10 10/18/21 17:00 10/19/21 04:15 Patient resulted labs reviewed. Assessment/Plan Assessment and Plan Assess & Plan/Chief Complaint Assessment: Acute hypoxic respiratory previously BiPAP dependent then status post acute respiratory failure 10/18/2021 status post emergently intubated and right-sided pneumothorax required chest tube placement by Dr. WOLFE with central line status post cardiac arrest x2 with ROSC after 20 minutes of compressions and 6 rounds of epinephrine now currently in new onset atrial fibrillation with rapid ventricular response status post amiodarone consulting cardiology status post cardioversion due to lack of resolution with IV antiarrhythmics currently on 3 pressors COVID-19 pneumonia DVT on anticoagulation Lung mass seen incidentally on CT scan Right-sided chest pain musculoskeletal type Hypertension Plan: BiPAP Vapotherm Anticoagulation 10/14/2021: Supportive care BiPAP 10/15/2021: Supportive care BiPAP Vapotherm Covid protocol meds High risk for intubation 10/16/2021: Complex case Continues to be high risk for intubation Pain control 10/17/2021: BiPAP Max Vapotherm Aggressive IV medication 10/18/2021: Status post cardiac arrest and emergently intubated and with right-sided chest tube and 3 pressors with A. fib and RVR Critical Care Critically Ill Patient DUSTIN IBRAHIM DO Oct 18, 2021 10:25
[2021-10-18 10:27] LABS: BASOPHILS # (AUTO) 0.1 10^3/uL (0.0-0.1); BASOPHILS % (AUTO) 0 % (0-10); EOSINOPHILS # (AUTO) 0.1 10^3/uL (0.0-0.3); EOSINOPHILS % (AUTO) 0 % (0-10); HEMATOCRIT 44 % (40-54); HEMOGLOBIN 13.6 g/dL (13.3-17.7); LYMPHOCYTES # (AUTO) 3.2 10^3/uL (1.0-4.0); LYMPHOCYTES % (AUTO) 10 % (12-44); MEAN CORPUSCULAR HEMOGLOBIN 29 pg (25-34); MEAN CORPUSCULAR HGB CONC 31 g/dL (32-36); MEAN CORPUSCULAR VOLUME 94 fL (80-99); MEAN PLATELET VOLUME 11.1 fL (9.0-12.2); MONOCYTES # (AUTO) 2.1 10^3/uL (0.0-1.0); MONOCYTES % (AUTO) 7 % (0-12); NEUTROPHILS # (AUTO) 23.3 10^3/uL (1.8-7.8); NEUTROPHILS % (AUTO) 75 % (42-75); PLATELET COUNT 264 10^3/uL (130-400)
[2021-10-18] MEDS ORDERED: MIDAZOLAM DRIP PRE-MIX 100 ML IV ONE (10:28)
--- NOTE | 2021-10-18 10:29 | Anesthesia-Procedure Note ---
Procedures/Interventions Procedure Start/Stop/Diagnosis Date of Procedure: Oct 18, 2021 Start Time: 09:25 Stop Time: 09:40 Intubation RSI: Yes Vital Signs Pre-procedure HR 160's Afib RVR, BP 190's/100's, Sat 68-74% 100% pre-Ox, [id number]: Yes Intubation Method: orotracheal Videoscope used: Yes Grade View: 1 Medications: Propofol (200), Succinylcholine (100) Mask Ventilation: positive Positive End Tide CO2: Yes Breath Sounds after Intubation: bilateral-equal ETT Securred @ (cm): 24 Intubated with ease: Yes Intubation Complications: no complications Progress Intubated without difficulty. Starting Sat 72%, Sat when starting bagging post intubation 70%. Bilat BS confirmed by RN. + color change on CO2. Assist RT and RN by bagging patient while they are placing tube packer and passing NGT. Noted that patients RVR had broken and HR now in the 80's and 90's. Noted that SpO2 not registering. Pt HR continued to trend down. Called for Atropine. At HR of 36 no Pulse palpated. Code called, Compression started. Dr. Randall to Room. Report given tae Randall assumed. NAVDEEP CROFT CRNA Oct 18, 2021 10:29
[2021-10-18 10:32] LABS: ABG BASE EXCESS -6.1 MMOL/L (-2.5-2.5); ABG OXYGEN SATURATION 60 % (94-100); ABG PCO2 66 MMHG (35-45); ABG PO2 40 MMHG (79-93); ABG TCO2 24.2 MMOL/L (21.0-31.0)
[2021-10-18 10:33] LABS: ABG PH 7.14 (7.37-7.43); ALLENS TEST POSITIVE; INSPIRED O2 100%; VENTILATOR YES
[2021-10-18 10:34] LABS: PATIENT TEMP 35.2
[2021-10-18] MEDS ORDERED: MIDAZOLAM 5 MG/5 ML (VERSED) VIAL IVP NR (10:35)
[2021-10-18] MEDS ORDERED: NS IV 500 ML 500 ML ONE (10:36)
--- NOTE | 2021-10-18 10:42 | Diagnostic Imaging Report ---
INDICATION: Pneumothorax. TIME OF EXAM: 10:28 AM Correlation is made with prior chest earlier same day. FINDINGS: ET tube remains above the margy. NG tube passes below the diaphragm. Proximal side-port is at the GE junction. NG tube could be advanced. There has been placement of a right-sided chest tube. There has been significant improved appearance of the chest with near complete reexpansion of the right lung. Only a small residual pneumothorax remains. Extensive infiltrate or atelectasis throughout both lungs is noted. Right subclavian line has tip overlying the SVC. IMPRESSION: 1. Right-sided chest tube placement with reexpansion of the right lung. There is only a very small right-sided pneumothorax noted. 2. Extensive bilateral infiltrates or atelectasis. Dictated by: Dictated on workstation # [id number]
[2021-10-18 10:45] LABS: ALBUMIN 2.5 GM/DL (3.2-4.5); BILIRUBIN,TOTAL 0.6 MG/DL (0.1-1.0); CALCIUM 8.1 MG/DL (8.5-10.1); CREATININE SERUM 1.13 MG/DL (0.60-1.30); MAGNESIUM 2.6 MG/DL (1.6-2.4); PHOSPHORUS 6.1 MG/DL (2.3-4.7)
[2021-10-18] MEDS ORDERED: CISATRACURIUM 2MG/ML (NIMBEX) 10ML VIAL IV NR (11:03)
--- NOTE | 2021-10-18 11:10 | Anesthesia-Procedure Note ---
Procedures/Interventions Procedure Start/Stop/Diagnosis Date of Procedure: Oct 18, 2021 Start Time: 10:51 Brief History Post Code Stop Time: 10:58 Arterial Line Arterial Line Catheter: 20G Type: Radial Location: Right Procedure: prepped, draped in sterile fashion, good wave-form was obtained, patient tolerated procedure well, no immediate complications, post procedure area cleaned, post procedure dressing applied NAVDEEP CROFT CRNA Oct 18, 2021 11:10
[2021-10-18] MEDS: lisINopril 20 MG (PRINIVIL) TABLET PO SCH (11:23)
[2021-10-18] MEDS: amLODIPine 5 MG (NORVASC) TAB PO SCH (11:23)
[2021-10-18] MEDS ORDERED: PHENYLEPHRINE INJECTION 10 MG in NS (IVPB) 250 ML IV SCH (11:30)
[2021-10-18 11:53] LABS: ABG BASE EXCESS 1.9 MMOL/L (-2.5-2.5); ABG OXYGEN SATURATION 85 % (94-100); ABG PO2 71 MMHG (79-93); ABG TCO2 31.2 MMOL/L (21.0-31.0)
[2021-10-18 11:54] LABS: ABG PCO2 75 MMHG (35-45); ABG PH 7.22 (7.37-7.43); INSPIRED O2 100%; PATIENT TEMP 37.2; VENTILATOR YES
[2021-10-18] MEDS: fentaNYL DRIP PRE-MIX 250 ML IV SCH ×5 (11:58→19:57)
[2021-10-18] MEDS: MIDAZOLAM DRIP PRE-MIX 100 ML IV SCH ×2 (12:00→13:58)
[2021-10-18] MEDS ORDERED: DIGOXIN 0.25 MG/ML (LANOXIN) 2 ML AMP IV ONE (12:00)
[2021-10-18] MEDS: PROPOFOL DRIP (ICU) 100 ML IV SCH ×2 (12:01→20:10)
[2021-10-18] MEDS: LIDOCAINE 4% (SALONPAS) PATCH TOP SCH (12:26)
[2021-10-18] MEDS ORDERED: D5W 100 ML IVPB 0 ML IV ONE (12:31)
[2021-10-18] MEDS ORDERED: AMIODARONE FOR BOLUS 150 MG in NS (IVPB) 100 ML IV NR (12:33)
--- NOTE | 2021-10-18 12:39 | CONSULTATION REPORT ---
DATE OF SERVICE: 10/18/2021 ATTENDING PRIMARY CARE PHYSICIAN: Dr. Rodriguez. HISTORY OF PRESENT ILLNESS: The patient is a 51-year-old male who presented to the Emergency Department with increasing shortness of breath, cough and body aches as well as nausea and vomiting and diarrhea. He was found to be SARS COVID positive. He was admitted and continued to have low oxygen saturations and was eventually admitted to the ICU. He continued to have worsening oxygen saturations as well as worsening shortness of breath and was eventually placed on CPAP as well as high flow Vapotherm; however, continued to decompensate. He was eventually intubated this morning and then went into cardiac arrest requiring ACLS protocol for approximately 15 minutes. A pulse was revived and the patient will require a central venous catheter as well as what appears to be a chest tube due to right pneumothorax. PAST MEDICAL HISTORY: Hypertension, hypercholesterolemia. PAST SURGICAL HISTORY: Unknown. ALLERGIES: NO KNOWN DRUG ALLERGIES. MEDICATIONS: 20 mg daily, lisinopril 10 mg daily, fluticasone spray b.i.d., lovastatin 40 mg daily, prednisone 20 mg daily, trazodone 100 mg each day at bedtime. SOCIAL HISTORY: Positive smoke, positive alcohol. FAMILY HISTORY: Noncontributory. PHYSICAL EXAMINATION: VITAL SIGNS: Upon seeing the patient, the patient was in cardiac arrest, undergoing ACLS protocol; however, a pulse was revived and the patient did respond to painful stimuli. CHEST: Decreased breath sounds, right lung space. Scattered rales on the left. HEART: Regular, no murmurs. EXTREMITIES: No lower extremity edema, negative Homans sign. HEENT: No scleral icterus. NECK: No cervical lymphadenopathy. ABDOMEN: Distended, no elicited pain. No hernias. SKIN: Warm, dry. ASSESSMENT AND PLAN: A 51-year-old male status post cardiorespiratory arrest secondary to SARS COVID-2. We will proceed with placement of a central venous catheter as well as a right-sided chest tube for what appears to be a tension pneumothorax. Job ID: [id number] DocumentID: [id number] Dictated Date: 10/18/2021 12:23:32 Sample Sawyer Date: 10/18/2021 12:39:01 Dictated By: KAVON WOLFE MD
--- NOTE | 2021-10-18 12:51 | Consultation-Cardiology ---
HPI-Cardiology Cardiology Consultation: Date of Consultation 10/18/21 Date of Admission Attending Physician Krystal Hernandez DO Admitting Physician Kait Rodriguez MD Consulting Physician KAIT MORENO JR, MD HPI: Time Seen by a Provider: 12:49 Chief Complaint: Patient consultation: Atrial fibrillation. I have been asked to see Walter due to atrial fibrillation that started following respiratory arrest earlier today. He has been in the hospital due to C ovid infection. Earlier today he developed worsening respiratory status and ultimately had respiratory arrest which resulted in a CODE BLUE. He received about 16 minutes of CPR. He was intubated. He then developed atrial fibrillation with a rapid ventricular rate. eICU administered intravenous digoxin and started him on amiodarone infusion which is to be started soon. The infusion just arrived to the ICU. I have been asked to see the patient due to the atrial fibrillation. Because of the patient's Covid status, I did not meet with the patient. My history was obtained from the medical record as well as his nurse and the hospitalist. Certain portions of this document may have been dictated utilizing voice recognition technology. Inherent to this technology, typographical and grammatical errors may exist. As much as I am diligent to identify and correct these mistakes, some errors may remain in the document. Review of Systems-Cardiology Review of Systems Other comments Not obtained due to Covid status. All Other Systems Reviewed Negative Unless Noted: Yes (Negative excepted noted.) C[facility]-Wehbap-Mlxpbu Hx Patient Social History Smoking Status: Never a Smoker 2nd Hand Smoke Exposure: No Have you traveled recently?: No Immunizations Up To Date Tetanus Booster (TDap): Unknown Past Medical History PMH As described under Assessment. Family Medical History Family Medical History: Not obtained due to Covid status. Allergies and Home Medications Allergies Coded Allergies: No Known Drug Allergies (Unverified , 04/13/19) Patient Home Medication List Home Medication List Reviewed: Yes Doxycycline Hyclate (Doxycycline Hyclate) 100 Mg Capsule, 100 MG PO BID, (Reported) Entered as Reported by: LUCAS CROCKETT on 10/09/21 1346 Last Action: Held Escitalopram Oxalate (Lexapro) 20 Mg Tablet, 20 MG PO DAILY, (Reported) Entered as Reported by: KANDY ABREU on 02/01/19 1222 Last Action: Reviewed Fluticasone Propionate (Flonase Allergy Relief) 9.9 Ml [place].susp, 1 SPRAY NSEACH BID, (Reported) Entered as Reported by: LUCAS CROCKETT on 10/09/211345 Last Action: Held Lisinopril (Lisinopril) 10 Mg Tablet, 10 MG PO DAILY, (Reported) Entered as Reported by: KANDY ABREU on 02/01/19 1011 Last Action: Reviewed Lovastatin (Lovastatin) 40 Mg Tablet, 40 MG PO HS, (Reported) Entered as Reported by: LUCAS CROCKETT on 10/09/211345 Last Action: Held Ondansetron (Ondansetron Odt) 4 Mg Tab.rapdis, 4 MG PO Q8H PRN for NAUSEA/VOMITING-1ST LINE, (Reported) Entered as Reported by: LUCAS CROCKETT on 10/09/211345 Last Action: Held Prednisone (Prednisone) 20 Mg Tab, 40 MG PO DAILY, (Reported) Entered as Reported by: LUCAS CROCKETT on 10/09/211345 Last Action: Held Trazodone HCl (Trazodone HCl) 100 Mg Tablet, 100 MG PO HS, (Reported) Entered as Reported by: LUCAS CROCKETT on 10/09/211345 Last Action: Continued Exam Vital Signs Vital Signs Date Time Temp Pulse Resp B/P (MAP) Pulse Ox O2 Delivery O2 Flow Rate FiO2 10/18/21 13:09 154 118/55 10/18/21 12:00 16 10/18/21 12:00 91 Mechanical Ventilator 100.00 10/18/21 10:54 100 10/18/21 08:00 35.2 Physical Exam I did not examine the patient due to his Covid status. Labs Laboratory Tests Test 10/17/21 15:40 10/17/21 20:12 10/18/21 03:25 10/18/21 04:30 Range/Units Glucometer 231 H 144 H 70-110 MG/DL Blood Gas Puncture Site RIGHT RADIAL Blood Gas Patient Temperature 36 Arterial Blood pH 7.38 7.37-7.43 Arterial Blood Partial Pressure CO2 50 H 35-45 MMHG Arterial Blood Partial Pressure O2 73 L 79-93 MMHG Arterial Blood HCO3 29 H 23-27 MMOL/L Arterial Blood Total CO2 30.9 21.0-31.0 MMOL/L Arterial Blood Oxygen Saturation 95 94-100 % Arterial Blood Base Excess 4.3 H -2.5-2.5 MMOL/L To Test POSITIVE Blood Gas Ventilator Setting NO Blood Gas Inspired Oxygen BIPAP 90% White Blood Count 27.3 H 4.3-11.0 10^3/uL Red Blood Count 4.72 4.30-5.52 10^6/uL Hemoglobin 13.6 13.3-17.7 g/dL Hematocrit 42 40-54 % Mean Corpuscular Volume 89 80-99 fL Mean Corpuscular Hemoglobin 29 25-34 pg Mean Corpuscular Hemoglobin Concent 32 32-36 g/dL Red Cell Distribution Width 14.7 H 10.0-14.5 % Platelet Count 233 130-400 10^3/uL Mean Platelet Volume 10.8 9.0-12.2 fL Immature Granulocyte % (Auto) 4 % Neutrophils (%) (Auto) 86 H 42-75 % Lymphocytes (%) (Auto) 3 L 12-44 % Monocytes (%) (Auto) 7 0-12 % Eosinophils (%) (Auto) 0 0-10 % Basophils (%) (Auto) 0 0-10 % Neutrophils # (Auto) 23.4 H 1.8-7.8 10^3/uL Lymphocytes # (Auto) 0.9 L 1.0-4.0 10^3/uL Monocytes # (Auto) 1.9 H 0.0-1.0 10^3/uL Eosinophils # (Auto) 0.0 0.0-0.3 10^3/uL Basophils # (Auto) 0.1 0.0-0.1 10^3/uL Immature Granulocyte # (Auto) 1.0 H 0.0-0.1 10^3/uL Neutrophils % (Manual) 85 % Lymphocytes % (Manual) 4 % Prolymphocyte % 1 % Monocytes % (Manual) 5 % Band Neutrophils 3 % Atypical Lymphocytes 2 % Toxic Granulation 1+ Blood Morphology Comment NORMAL Sodium Level 134 L 135-145 MMOL/L Potassium Level 4.3 3.6-5.0 MMOL/L Chloride Level 99 98-107 MMOL/L Carbon Dioxide Level 26 21-32 MMOL/L Anion Gap 9 5-14 MMOL/L Blood Urea Nitrogen 38 H 7-18 MG/DL Creatinine 0.77 0.60-1.30 MG/DL Estimat Glomerular Filtration Rate 106 BUN/Creatinine Ratio 49 Glucose Level 134 H 70-105 MG/DL Calcium Level 8.6 8.5-10.1 MG/DL Corrected Calcium 9.6 8.5-10.1 MG/DL Phosphorus Level 3.9 2.3-4.7 MG/DL Magnesium Level 2.4 1.6-2.4 MG/DL Total Bilirubin 0.5 0.1-1.0 MG/DL Aspartate Amino Transf (AST/SGOT) 23 5-34 U/L Alanine Aminotransferase (ALT/SGPT) 16 0-55 U/L Alkaline Phosphatase 74 40-136 U/L Total Protein 5.5 L 6.4-8.2 GM/DL Albumin 2.8 L 3.2-4.5 GM/DL Test 10/18/21 10:09 10/18/21 10:10 10/18/21 11:43 10/18/21 12:21 Range/Units Blood Gas Puncture Site LEFT RADIAL UNK Blood Gas Patient Temperature 35.2 37.2 Arterial Blood pH 7.14 *L 7.22 *L 7.37-7.43 Arterial Blood Partial Pressure CO2 66 H 75 *H 35-45 MMHG Arterial Blood Partial Pressure O2 40 L 71 L 79-93 MMHG Arterial Blood HCO3 22 L 29 H 23-27 MMOL/L Arterial Blood Total CO2 24.2 31.2 H 21.0-31.0 MMOL/L Arterial Blood Oxygen Saturation 60 L 85 L 94-100 % Arterial Blood Base Excess -6.1 L 1.9 -2.5-2.5 MMOL/L To Test POSITIVE UNK Blood Gas Ventilator Setting YES YES Blood Gas Inspired Oxygen 100% 100% White Blood Count 31.0 *H 4.3-11.0 10^3/uL Red Blood Count 4.66 4.30-5.52 10^6/uL Hemoglobin 13.6 13.3-17.7 g/dL Hematocrit 44 40-54 % Mean Corpuscular Volume 94 80-99 fL Mean Corpuscular Hemoglobin 29 25-34 pg Mean Corpuscular Hemoglobin Concent 31 L 32-36 g/dL Red Cell Distribution Width 15.0 H 10.0-14.5 % Platelet Count 264 130-400 10^3/uL Mean Platelet Volume 11.1 9.0-12.2 fL Immature Granulocyte % (Auto) 7 % Neutrophils (%) (Auto) 75 42-75 % Lymphocytes (%) (Auto) 10 L 12-44 % Monocytes (%) (Auto) 7 0-12 % Eosinophils (%) (Auto) 0 0-10 % Basophils (%) (Auto) 0 0-10 % Neutrophils # (Auto) 23.3 H 1.8-7.8 10^3/uL Lymphocytes # (Auto) 3.2 1.0-4.0 10^3/uL Monocytes # (Auto) 2.1 H 0.0-1.0 10^3/uL Eosinophils # (Auto) 0.1 0.0-0.3 10^3/uL Basophils # (Auto) 0.1 0.0-0.1 10^3/uL Immature Granulocyte # (Auto) 2.2 H 0.0-0.1 10^3/uL Sodium Level 135 135-145 MMOL/L Potassium Level 5.0 3.6-5.0 MMOL/L Chloride Level 97 L 98-107 MMOL/L Carbon Dioxide Level 19 L 21-32 MMOL/L Anion Gap 19 H 5-14 MMOL/L Blood Urea Nitrogen 35 H 7-18 MG/DL Creatinine 1.13 0.60-1.30 MG/DL Estimat Glomerular Filtration Rate 68 BUN/Creatinine Ratio 31 Glucose Level 253 H 70-105 MG/DL Lactic Acid Level 11.21 *H 0.50-2.00 MMOL/L Calcium Level 8.1 L 8.5-10.1 MG/DL Corrected Calcium 9.3 8.5-10.1 MG/DL Phosphorus Level 6.1 H 2.3-4.7 MG/DL Magnesium Level 2.6 H 1.6-2.4 MG/DL Total Bilirubin 0.6 0.1-1.0 MG/DL Aspartate Amino Transf (AST/SGOT) 59 H 5-34 U/L Alanine Aminotransferase (ALT/SGPT) 73 H 0-55 U/L Alkaline Phosphatase 74 40-136 U/L Total Protein 5.0 L 6.4-8.2 GM/DL Albumin 2.5 L 3.2-4.5 GM/DL Glucometer 209 H 70-110 MG/DL Test 10/18/21 13:13 Range/Units ECG Impression ECG Comment Atrial fibrillation with a rapid ventricular rate at 183 bpm with left anterior hemiblock, poor R wave progression, and diffuse, nonspecific ST-T wave changes. Diagnosis/Problems Diagnosis/Problems (1) Paroxysmal atrial fibrillation Assessment & Plan: This is a new finding on this patient. There is most most likely brought on by the resuscitative efforts during his cardiopulmonary arrest. I have ordered a 150 mg intravenous bolus of amiodarone to be given by push. He should then start the amiodarone infusion that was ordered by the eICU. If he remains in shock over the next 30-60 minutes, then I would consider cardioversion. This may help improve his blood pressure. There is no indication for anticoagulation for the atrial fibrillation at this time. (2) Cardiorespiratory arrest Assessment & Plan: Most likely brought on by the Covid pneumonia. He is now intubated and in shock on 3 vasopressor medications. Prognosis is poor. (3) Septic shock Assessment & Plan: As above, he is now on 3 vasopressor medications. The shock is probably related to Covid pneumonia. Willis is poor. (4) Primary hypertension Assessment & Plan: All antihypertensive medications are on hold due to the shock. (5) Mixed hyperlipidemia Assessment & Plan: Continue statin medication for the time being. If he becomes comfort care, I would stop the statin medication. (6) Pneumonia due to COVID-19 virus Status: Acute Assessment & Plan: As above, this most likely led to the patient's cardi opulmonary arrest and now septic shock. KAIT MORENO JR, MD Oct 18, 2021 12:51
[2021-10-18] MEDS: AMIODARONE FOR BOLUS 150 MG in NS (IVPB) 100 ML IV ONE ×2 (13:13→13:21)
[2021-10-18] MEDS: AMIODARONE INJECTION 450 MG in D5W IV SOLUTION (EXCEL) 250 ML IV SCH ×2 (13:22→20:37)
[2021-10-18] MEDS ORDERED: EPINEPHrine 0.1 MG/ML 10 ML (HOSPIRA) SYR IJ ONE (13:32)
[2021-10-18] MEDS ORDERED: MIDAZOLAM 5 MG/5 ML (VERSED) VIAL INJ ONE (13:32)
[2021-10-18] MEDS ORDERED: SUCCINYLCHOLINE INJ 100 MG/5 ML SYR/VIAL INJ ONE (13:32)
[2021-10-18] MEDS ORDERED: ATROPINE INJECTION 1 MG/10 ML SYR (ABBOTT) INJ ONE (13:32)
[2021-10-18] MEDS ORDERED: SODIUM BICARB 8.4% 50 MEQ/50 ML (ABBOTT) SYR INJ ONE (13:32)
[2021-10-18] MEDS ORDERED: CATHETER FLUSH 10 ML SYR IV ONE (13:32)
[2021-10-18] MEDS ORDERED: proPOfol 200 MG/20 ML (DIPRIVAN) VIAL IV ONE (13:32)
[2021-10-18] MEDS: FLUCONAZOLE 100 MG/50 ML IVPB IV SCH ×2 (13:44)
[2021-10-18] MEDS ORDERED: SODIUM CHLORIDE FLUSH IV ONE (13:45)
[2021-10-18] MEDS ORDERED: AMIODARONE FOR BOLUS IV ONE (13:45)
[2021-10-18] MEDS: ENOXAPARIN 80 MG/0.8 ML (LOVENOX) SYR SC SCH ×2 (13:53→22:13)
[2021-10-18] MEDS: NS IV 1000 ML 1,000 ML IV SCH ×2 (13:57→22:13)
[2021-10-18] MEDS ORDERED: VASOPRESSIN INJECTION 20 UNIT in NS (IVPB) 100 ML IV SCH (14:00)
[2021-10-18] MEDS: NOREPINEPHRINE 8 MG/250 ML 250 ML IV SCH ×3 (15:46→19:45)
[2021-10-18 17:21] LABS: HEMATOCRIT 45 % (40-54); HEMOGLOBIN 14.5 g/dL (13.3-17.7); MEAN CORPUSCULAR HEMOGLOBIN 29 pg (25-34); MEAN CORPUSCULAR HGB CONC 32 g/dL (32-36); MEAN CORPUSCULAR VOLUME 90 fL (80-99); MEAN PLATELET VOLUME 10.6 fL (9.0-12.2); PLATELET COUNT 320 10^3/uL (130-400)
[2021-10-18 17:22] LABS: WHITE BLOOD COUNT 43.3 10^3/uL (4.3-11.0)
[2021-10-18 17:29] LABS: POTASSIUM 5.3 MMOL/L (3.6-5.0)
[2021-10-18 17:30] LABS: CALCIUM 7.7 MG/DL (8.5-10.1)
--- NOTE | 2021-10-18 17:31 | Cardiac Procedure Note ---
Cardiology Procedures Date of Procedure 10/18/2021 DIRECT-CURRENT CARDIOVERSION PROCEDURE: Due to the emergency nature of this procedure with the patient being in persistent tachycardia from atrial fibrillation and shock, the procedure was carried out without informed consent. The patient is intubated and sedated due to cardiopulmonary arrest earlier today. Direct-current cardioversion was performed utilizing 1 biphasic synchronized shock at 150 J with successful conversion of atrial fibrillation to sinus tachycardia. IMPRESSION: 1. Status post successful direct-current cardioversion with 1 synchronized biphasic shock at 150 J with successful conversion of atrial fibrillation to sinus rhythm. 2. Continue intravenous amiodarone infusion. 3. No indication for anticoagulation for the atrial fibrillation at this time. Certain portions of this document may have been dictated utilizing voice recognition technology. Inherent to this technology, typographical and grammatical errors may exist. As much as I am diligent to identify and correct these mistakes, some errors may remain in the document. KAIT MORENO JR, MD Oct 18, 2021 17:31
[2021-10-18 17:34] LABS: CREATININE SERUM 0.82 MG/DL (0.60-1.30)
[2021-10-18] MEDS ORDERED: SOD POLYSTERENE 15 GM/60 ML (KAYEXALATE) UNIT DOSE NG ONE (18:15)
--- NOTE | 2021-10-18 18:18 | OPERATIVE REPORT ---
DATE OF SERVICE: 10/18/2021 ATTENDING PRIMARY CARE PHYSICIAN: Dr. Rodriguez. PREOPERATIVE DIAGNOSES: Cardiorespiratory arrest secondary to SARS COVID-2 and right tension pneumothorax. POSTOPERATIVE DIAGNOSES: Cardiorespiratory arrest secondary to SARS COVID-2 and right tension pneumothorax. PROCEDURE: Placement of right subclavian central venous catheter, placement of 26-Bengali right chest tube. SURGEON: Kavon Wolfe MD. ANESTHESIA: Local. ESTIMATED BLOOD LOSS: Minimal. FINDINGS: Significant air leak. DISPOSITION: The patient tolerated the procedure well. INDICATIONS: The patient is a 51-year-old male admitted for shortness of breath, cough, body aches and was found to be SARS COVID-2 positive. He was continued to have low oxygen saturations requiring ICU admission and he continued to decompensate requiring high-flow humidified oxygen and eventually CPAP. He continued to decompensate requiring intubation, then he went into cardiac arrest requiring ACLS protocol for approximately 15 minutes. A pulse was revived. Post-chest x-ray did show a tension right pneumothorax as well as what appeared to be a large gastric bubble. DESCRIPTION OF PROCEDURE: The chest and neck were prepped and draped in standard surgical fashion. The left subclavian vein was then cannulated with drawing of venous blood and the guidewire was then inserted without any resistance. The cannulating needle removed, and a skin incision made using 11 blade. The dilator was then placed over the guidewire and a triple lumen central venous catheter was placed over the guidewire using the Seldinger technique. The guidewire removed and all three ports amrit venous blood and saline pushed in without any resistance. The catheter was then sutured to the skin using 3-0 silk interrupted sutures and covered with Op-Site. At approximately the sixth or seventh intercostal space, the skin and intercostal muscles as well as the parietal pleura were anesthetized using 1% lidocaine. A transverse skin incision was made using 11 blade in the anterior axillary line. Subcutaneous tissue and muscle layers were then dissected using a Susan clamp and a 26-Bengali chest tube with a trocar was then placed without any resistance and advanced over the trocar. The catheter was then placed to Pleur-Evac where an air leak was identified and significant amounts of pleural effusion. The catheter was then sutured to the skin using 0 Prolene suture. The catheter was then covered with Vaseline gauze followed by 4 x 4 gauze and silk tape. The patient tolerated the procedure well. We will get a post-procedure chest x-ray. Job ID: [id number] DocumentID: [id number] Dictated Date: 10/18/2021 12:28:43 Senior Tax Analyst Date: 10/18/2021 15:02:57 Dictated By: KAVON WOLFE MD MTDD
[2021-10-18] MEDS: traZODone 50 MG (DESYREL) TAB PO SCH (20:10)
[2021-10-18] MEDS: traZODone 100 MG (DESYREL) TAB PO SCH (20:10)
[2021-10-18] MEDS: AtorvaSTATin TABLET 10 MG TABLET PO SCH (20:10)
[2021-10-19] VITALS (28 sets, daily range): BP systolic 95–144; BP diastolic 36–71
[2021-10-19] MEDS: PROPOFOL DRIP (ICU) 100 ML IV SCH ×3 (00:05→17:20)
[2021-10-19] MEDS: PIPERACILLIN SODIUM/TAZOBACTAM 4.5 GM in NS (IVPB) 100 ML IV SCH ×3 (00:05→20:04)
[2021-10-19] MEDS: fentaNYL DRIP PRE-MIX 250 ML IV SCH ×4 (00:05→16:24)
[2021-10-19] MEDS: inSUlin ASPART (NovoLOG) 1 UNIT/0.01 ML (CHARGE PER UNIT) SQ SCH ×5 (00:06→23:55)
[2021-10-19] MEDS: NOREPINEPHRINE 8 MG/250 ML 250 ML IV SCH ×2 (00:24→09:59)
[2021-10-19] MEDS: RT-ALBUTEROL HFA 8.5 GM INHALER IH SCH ×4 (02:18→22:02)
[2021-10-19 04:34] LABS: ABG BASE EXCESS 3.2 MMOL/L (-2.5-2.5); ABG OXYGEN SATURATION 97 % (94-100); ABG PO2 89 MMHG (79-93); ABG TCO2 31.6 MMOL/L (21.0-31.0); BASOPHILS # (AUTO) 0.1 10^3/uL (0.0-0.1); BASOPHILS % (AUTO) 0 % (0-10); EOSINOPHILS # (AUTO) 0.1 10^3/uL (0.0-0.3); EOSINOPHILS % (AUTO) 0 % (0-10); HEMATOCRIT 42 % (40-54); HEMOGLOBIN 13.3 g/dL (13.3-17.7); LYMPHOCYTES # (AUTO) 0.8 10^3/uL (1.0-4.0); LYMPHOCYTES % (AUTO) 3 % (12-44); MEAN CORPUSCULAR HEMOGLOBIN 29 pg (25-34); MEAN CORPUSCULAR HGB CONC 31 g/dL (32-36); MEAN CORPUSCULAR VOLUME 92 fL (80-99); MEAN PLATELET VOLUME 10.3 fL (9.0-12.2); MONOCYTES # (AUTO) 1.9 10^3/uL (0.0-1.0); MONOCYTES % (AUTO) 7 % (0-12); NEUTROPHILS # (AUTO) 22.4 10^3/uL (1.8-7.8); NEUTROPHILS % (AUTO) 85 % (42-75); PLATELET COUNT 255 10^3/uL (130-400); WHITE BLOOD COUNT 26.3 10^3/uL (4.3-11.0)
[2021-10-19 04:36] LABS: ALLENS TEST ARTLINE; INSPIRED O2 70%; PATIENT TEMP 38; VENTILATOR YES
[2021-10-19] MEDS: MIDAZOLAM DRIP PRE-MIX 100 ML IV SCH ×2 (04:37→21:26)
[2021-10-19 04:38] LABS: ABG PCO2 71 MMHG (35-45); ABG PH 7.25 (7.37-7.43); ALBUMIN 2.5 GM/DL (3.2-4.5); POTASSIUM 4.7 MMOL/L (3.6-5.0)
[2021-10-19 04:39] LABS: CALCIUM 7.4 MG/DL (8.5-10.1)
[2021-10-19 04:42] LABS: BILIRUBIN,TOTAL 0.4 MG/DL (0.1-1.0)
[2021-10-19 04:44] LABS: CREATININE SERUM 0.75 MG/DL (0.60-1.30); PHOSPHORUS 2.2 MG/DL (2.3-4.7)
[2021-10-19] MEDS: KCL 20 MEQ TAB (K-DUR) PO SCH (04:44)
[2021-10-19] MEDS: POTASSIUM CL 10MEQ/50ML IVPB 50 ML IV SCH (04:44)
[2021-10-19 04:47] LABS: MAGNESIUM 2.3 MG/DL (1.6-2.4)
[2021-10-19] MEDS: MAGNESIUM 1 GM/100 ML IVPB 100 ML IV SCH (06:12)
[2021-10-19] MEDS: DexMEDEtomidine 250 ML DRIP 250 ML IV SCH ×3 (06:13→21:52)
--- NOTE | 2021-10-19 06:15 | Progress Note - Hospitalist ---
Subjective HPI/CC On Admission Date Seen by Provider: Oct 19, 2021 Time Seen by Provider: 10:30 Admisison Planning May Need Admission (Planning): 08:00 (JAVIER ORDONEZ MD) Progress Progress Note #1: Time: 08:11 Progress Note 51-year-old male presents to the emergency department with his parents chief complaint of increasing shortness of breath, cough, body aches headache, nausea vomiting and diarrhea. Tells us initially that he was seen by [facility] 2 or 3 days ago, tested negative for Covid. Later his father contributes to the history stating that the patient was in fact told that he had pneumonia and was started on an antibiotic however the patient cannot recall what that was when asked. Patient states that he does not and has not ever smoked. He does not work around fumes or smoke. He states his cough is nonproductive. Has had profoundly severe shortness of breath with exertion over the last 24 hours. Takes medication for cholesterol and hypertension although did not take his medicine for hypertension this morning. Denies known sick contacts with Covid. Is not vaccinated. No history of blood clot in family or himself. No recent prolonged immobility or travel. No pain or swelling in his lower extremities. No recent black or bloody stool. Complains that his heart is "racing". Room air sats in the 70s on arrival to the emergency department. Still at 88 to 89% on 12 L per nasal cannula. Patient is noted to have fine rales at the bases bilaterally, moderate respiratory distress. No swelling in his lower extremities. No tenderness in the calves, negative Homans bilaterally. No rashes. Soft nontender abdomen. Dry oral mucosa. Sepsis work-up initiated with Covid and influenza testing. D-dimer pending. Chest x-ray pending. Patient is started on Vapotherm per respiratory therapy. Subjective/Events-last exam Patient seen and examined Conferred with nurse Down to 1 pressor Zosyn will be extended Now normal sinus rhythm at 82 Appreciate cardiology Lovenox maintained ABG reviewed Still on vent Updated brother Dr. Adalid Vang via phone call and he is visiting locally after flying in from [place] Focused Exam Lactate Level 10/18/21 10:10: Lactic Acid Level 11.21*H 10/18/21 13:13: Lactic Acid Level 1.40 Objective Exam Vital Signs Vital Signs Date Time Temp Pulse Resp B/P (MAP) Pulse Ox O2 Delivery O2 Flow Rate FiO2 10/19/21 16:00 84 11 125/58 (80) 95 Mechanical Ventilator 50.00 10/19/21 15:57 35.2 10/19/21 14:13 50 Capillary Refill : Less Than 3 Seconds General Appearance: Chronically ill, Other (Sedated and intubated) Respiratory: No Accessory Muscle Use, No Respiratory Distress, Decreased Breath Sounds Cardiovascular: Regular Rate, Rhythm Results/Procedures Lab Laboratory Tests 10/18/21 17:00 10/19/21 04:15 Patient resulted labs reviewed. Assessment/Plan Assessment and Plan Assess & Plan/Chief Complaint Assessment: Acute hypoxic respiratory previously BiPAP dependent then status post acute respiratory failure 10/18/2021 status post emergently intubated and right-sided pneumothorax required chest tube placement by Dr. WOLFE with central line status post cardiac arrest x2 with ROSC after 20 minutes of compressions and 6 rounds of epinephrine status post new onset atrial fibrillation with rapid ventricular response status post amiodarone consulting cardiology status post cardioversion due to lack of resolution with IV antiarrhythmics currently on 1 pressor COVID-19 pneumonia DVT on anticoagulation Lung mass seen incidentally on CT scan Right-sided chest pain musculoskeletal type Hypertension Plan: BiPAP Vapotherm Anticoagulation 10/14/2021: Supportive care BiPAP 10/15/2021: Supportive care BiPAP Vapotherm Covid protocol meds High risk for intubation 10/16/2021: Complex case Continues to be high risk for intubation Pain control 10/17/2021: BiPAP Max Vapotherm Aggressive IV medication 10/18/2021: Status post cardiac arrest and emergently intubated and with right-sided chest tube and 3 pressors with A. fib and RVR 10/19/2021: Appreciate cardiology, eICU, Dr. WOLFE management yesterday Critical Care Ventilator Management DUSTIN IBRAHIM DO Oct 19, 2021 06:15
--- NOTE | 2021-10-19 06:56 | Diagnostic Imaging Report ---
Indication: Respiratory distress. Compared with exam 10/18/2021. Findings: A right chest tube remains. Soft tissue gas nearly resolved. Pneumothorax has decreased. Consolidation in the right mid to lower lung persist. There is blunting of the right angle, likely small amount of right-sided pleural fluid. ET tube upper thoracic trachea. Heart size decreased. Airspace disease in the perihilar left lung improved. Impression: Decreased soft tissue gas, decreased pneumothorax. Improvements in airspace disease with no adverse development. Dictated by: Dictated on workstation # [id number]
[2021-10-19] MEDS: NS IV 1000 ML 1,000 ML IV SCH ×2 (08:47→17:32)
[2021-10-19] MEDS: ACYCLOVIR 400 MG TABLET (ZOVIRAX) PO SCH ×2 (08:48→17:20)
[2021-10-19] MEDS: PANTOPRAZOLE 40 MG (PROTONIX) VIAL IV SCH (08:48)
[2021-10-19] MEDS: FLUCONAZOLE 100 MG/50 ML IVPB IV SCH ×2 (08:48)
[2021-10-19] MEDS: lisINopril 20 MG (PRINIVIL) TABLET PO SCH (08:54)
[2021-10-19] MEDS: LIDOCAINE 4% (SALONPAS) PATCH TOP SCH (08:54)
[2021-10-19] MEDS: amLODIPine 5 MG (NORVASC) TAB PO SCH (08:54)
--- NOTE | 2021-10-19 09:38 | Cardiology Progress Note ---
Progress Note-Cardiology Events since last exam Date Seen by Provider: Oct 19, 2021 Time Seen by Provider: 09:34 Events since last exam I am seeing him for paroxysmal atrial fibrillation which developed during ca rdiopulmonary arrest. Since his cardioversion on 10/18, he remains in sinus tachycardia. He remains intubated and sedated. He is on norepinephrine infusion due to shock. He remains on intravenous amiodarone but the current bag is about to finish. I did not see the patient due to his Covid status. I did speak with his nurse for today. Certain portions of this document may have been dictated utilizing voice recognition technology. Inherent to this technology, typographical and grammatical errors may exist. As much as I am diligent to identify and correct these mistakes, some errors may remain in the document. Vitals Last set of Vitals Signs Vital Signs 10/19/21 10/19/21 10/19/21 10/19/21 06:00 07:16 07:33 07:42 Temp 37.9 Pulse 103 Resp 28 B/P (MAP) 98/36 Pulse Ox 91 O2 Delivery Mechanical Ventilator O2 Flow Rate 60.00 FiO2 60 Labs Labs Laboratory Tests 10/18/21 10:10 10/18/21 17:00 10/19/21 04:15 Exam Vital Signs Vital Signs Date Time Temp Pulse Resp B/P (MAP) Pulse Ox O2 Delivery O2 Flow Rate FiO2 10/19/21 07:42 37.9 10/19/21 07:33 103 98/36 10/19/21 07:16 28 91 60 10/19/21 06:00 Mechanical Ventilator 60.00 Physical Exam I did not examine the patient due to Covid status. Labs Laboratory Tests Test 10/18/21 10:09 10/18/21 10:10 10/18/21 11:43 10/18/21 12:21 Range/Units Blood Gas Puncture Site LEFT RADIAL UNK Blood Gas Patient Temperature 35.2 37.2 Arterial Blood pH 7.14 *L 7.22 *L 7.37-7.43 Arterial Blood Partial Pressure CO2 66 H 75 *H 35-45 MMHG Arterial Blood Partial Pressure O2 40 L 71 L 79-93 MMHG Arterial Blood HCO3 22 L 29 H 23-27 MMOL/L Arterial Blood Total CO2 24.2 31.2 H 21.0-31.0 MMOL/L Arterial Blood Oxygen Saturation 60 L 85 L 94-100 % Arterial Blood Base Excess -6.1 L 1.9 -2.5-2.5 MMOL/L To Test POSITIVE UNK Blood Gas Ventilator Setting YES YES Blood Gas Inspired Oxygen 100% 100% White Blood Count 31.0 *H 4.3-11.0 10^3/uL Red Blood Count 4.66 4.30-5.52 10^6/uL Hemoglobin 13.6 13.3-17.7 g/dL Hematocrit 44 40-54 % Mean Corpuscular Volume 94 80-99 fL Mean Corpuscular Hemoglobin 29 25-34 pg Mean Corpuscular Hemoglobin Concent 31 L 32-36 g/dL Red Cell Distribution Width 15.0 H 10.0-14.5 % Platelet Count 264 130-400 10^3/uL Mean Platelet Volume 11.1 9.0-12.2 fL Immature Granulocyte % (Auto) 7 % Neutrophils (%) (Auto) 75 42-75 % Lymphocytes (%) (Auto) 10 L 12-44 % Monocytes (%) (Auto) 7 0-12 % Eosinophils (%) (Auto) 0 0-10 % Basophils (%) (Auto) 0 0-10 % Neutrophils # (Auto) 23.3 H 1.8-7.8 10^3/uL Lymphocytes # (Auto) 3.2 1.0-4.0 10^3/uL Monocytes # (Auto) 2.1 H 0.0-1.0 10^3/uL Eosinophils # (Auto) 0.1 0.0-0.3 10^3/uL Basophils # (Auto) 0.1 0.0-0.1 10^3/uL Immature Granulocyte # (Auto) 2.2 H 0.0-0.1 10^3/uL Sodium Level 135 135-145 MMOL/L Potassium Level 5.0 3.6-5.0 MMOL/L Chloride Level 97 L 98-107 MMOL/L Carbon Dioxide Level 19 L 21-32 MMOL/L Anion Gap 19 H 5-14 MMOL/L Blood Urea Nitrogen 35 H 7-18 MG/DL Creatinine 1.13 0.60-1.30 MG/DL Estimat Glomerular Filtration Rate 68 BUN/Creatinine Ratio 31 Glucose Level 253 H 70-105 MG/DL Lactic Acid Level 11.21 *H 0.50-2.00 MMOL/L Calcium Level 8.1 L 8.5-10.1 MG/DL Corrected Calcium 9.3 8.5-10.1 MG/DL Phosphorus Level 6.1 H 2.3-4.7 MG/DL Magnesium Level 2.6 H 1.6-2.4 MG/DL Total Bilirubin 0.6 0.1-1.0 MG/DL Aspartate Amino Transf (AST/SGOT) 59 H 5-34 U/L Alanine Aminotransferase (ALT/SGPT) 73 H 0-55 U/L Alkaline Phosphatase 74 40-136 U/L Total Protein 5.0 L 6.4-8.2 GM/DL Albumin 2.5 L 3.2-4.5 GM/DL Glucometer 209 H 70-110 MG/DL Test 10/18/21 13:13 10/18/21 17:00 10/18/21 17:55 10/18/21 22:42 Range/Units Lactic Acid Level 1.40 0.50-2.00 MMOL/L White Blood Count 43.3 *H 4.3-11.0 10^3/uL Red Blood Count 5.01 4.30-5.52 10^6/uL Hemoglobin 14.5 13.3-17.7 g/dL Hematocrit 45 40-54 % Mean Corpuscular Volume 90 80-99 fL Mean Corpuscular Hemoglobin 29 25-34 pg Mean Corpuscular Hemoglobin Concent 32 32-36 g/dL Red Cell Distribution Width 14.9 H 10.0-14.5 % Platelet Count 320 130-400 10^3/uL Mean Platelet Volume 10.6 9.0-12.2 fL Sodium Level 136 135-145 MMOL/L Potassium Level 5.3 H 3.6-5.0 MMOL/L Chloride Level 102 98-107 MMOL/L Carbon Dioxide Level 28 21-32 MMOL/L Anion Gap 6 5-14 MMOL/L Blood Urea Nitrogen 35 H 7-18 MG/DL Creatinine 0.82 0.60-1.30 MG/DL Estimat Glomerular Filtration Rate 98 BUN/Creatinine Ratio 43 Glucose Level 206 H 70-105 MG/DL Calcium Level 7.7 L 8.5-10.1 MG/DL Glucometer 174 H 146 H 70-110 MG/DL Test 10/19/21 04:15 Range/Units White Blood Count 26.3 H 4.3-11.0 10^3/uL Red Blood Count 4.61 4.30-5.52 10^6/uL Hemoglobin 13.3 13.3-17.7 g/dL Hematocrit 42 40-54 % Mean Corpuscular Volume 92 80-99 fL Mean Corpuscular Hemoglobin 29 25-34 pg Mean Corpuscular Hemoglobin Concent 31 L 32-36 g/dL Red Cell Distribution Width 15.1 H 10.0-14.5 % Platelet Count 255 130-400 10^3/uL Mean Platelet Volume 10.3 9.0-12.2 fL Immature Granulocyte % (Auto) 4 % Neutrophils (%) (Auto) 85 H 42-75 % Lymphocytes (%) (Auto) 3 L 12-44 % Monocytes (%) (Auto) 7 0-12 % Eosinophils (%) (Auto) 0 0-10 % Basophils (%) (Auto) 0 0-10 % Neutrophils # (Auto) 22.4 H 1.8-7.8 10^3/uL Lymphocytes # (Auto) 0.8 L 1.0-4.0 10^3/uL Monocytes # (Auto) 1.9 H 0.0-1.0 10^3/uL Eosinophils # (Auto) 0.1 0.0-0.3 10^3/uL Basophils # (Auto) 0.1 0.0-0.1 10^3/uL Immature Granulocyte # (Auto) 1.0 H 0.0-0.1 10^3/uL Blood Gas Puncture Site ARTLINE Blood Gas Patient Temperature 38 Arterial Blood pH 7.25 *L 7.37-7.43 Arterial Blood Partial Pressure CO2 71 *H 35-45 MMHG Arterial Blood Partial Pressure O2 89 79-93 MMHG Arterial Blood HCO3 30 H 23-27 MMOL/L Arterial Blood Total CO2 31.6 H 21.0-31.0 MMOL/L Arterial Blood Oxygen Saturation 97 94-100 % Arterial Blood Base Excess 3.2 H -2.5-2.5 MMOL/L To Test ARTLINE Blood Gas Ventilator Setting YES Blood Gas Inspired Oxygen 70% Sodium Level 139 135-145 MMOL/L Potassium Level 4.7 3.6-5.0 MMOL/L Chloride Level 105 98-107 MMOL/L Carbon Dioxide Level 25 21-32 MMOL/L Anion Gap 9 5-14 MMOL/L Blood Urea Nitrogen 25 H 7-18 MG/DL Creatinine 0.75 0.60-1.30 MG/DL Estimat Glomerular Filtration Rate 109 BUN/Creatinine Ratio 33 Glucose Level 122 H 70-105 MG/DL Calcium Level 7.4 L 8.5-10.1 MG/DL Corrected Calcium 8.6 8.5-10.1 MG/DL Phosphorus Level 2.2 L 2.3-4.7 MG/DL Magnesium Level 2.3 1.6-2.4 MG/DL Total Bilirubin 0.4 0.1-1.0 MG/DL Aspartate Amino Transf (AST/SGOT) 46 H 5-34 U/L Alanine Aminotransferase (ALT/SGPT) 119 H 0-55 U/L Alkaline Phosphatase 73 40-136 U/L Total Protein 5.0 L 6.4-8.2 GM/DL Albumin 2.5 L 3.2-4.5 GM/DL Diagnosis/Problems Diagnosis/Problems (1) Paroxysmal atrial fibrillation Assessment & Plan: This is a new finding on this patient. There is most most likely brought on by the resuscitative efforts during his cardiopulmonary arrest. Since his cardioversion, he remains in sinus rhythm and sinus tachycardia. I will transition the intravenous amiodarone over to oral. Since the atrial fibrillation was most likely brought on by his cardiopulmonary arrest, he does not necessarily need anticoagulation for the atrial fibrillation. (2) Cardiorespiratory arrest Assessment & Plan: Most likely brought on by the Covid pneumonia. He is now intubated and in shock on norepinephrine. Following his cardiopulmonary arrest, he was on three vasopressor medications. However, his prognosis still remains poor. (3) Septic shock Assessment & Plan: Most likely related to Covid pneumonia. He will continue on norepinephrine infusion and wean as tolerated. (4) Primary hypertension Assessment & Plan: All antihypertensive medications are on hold due to the shock. (5) Mixed hyperlipidemia Assessment & Plan: Continue statin medication for the time being. If he becomes comfort care, I would stop the statin medication. (6) Pneumonia due to COVID-19 virus Status: Acute Assessment & Plan: As above, this most likely led to the patient's cardiopulmonary arrest and now septic shock. KAIT MORENO JR, MD Oct 19, 2021 09:38
[2021-10-19] MEDS: ENOXAPARIN 80 MG/0.8 ML (LOVENOX) SYR SC SCH ×2 (09:58→20:10)
[2021-10-19] MEDS: AMIODARONE 200 MG (CORDARONE) TAB PO SCH ×2 (09:58→20:10)
--- NOTE | 2021-10-19 10:10 | Progress Note ---
Subjective Date Seen by a Provider: Oct 19, 2021 Time Seen by a Provider: 08:00 Subjective/Events-last exam on vent sedated. large air leak. on significant PEEP. remains critically ill. Focused Exam Lactate Level 10/18/21 10:10: Lactic Acid Level 11.21*H 10/18/21 13:13: Lactic Acid Level 1.40 Objective Exam Vital Signs Date Time Temp Pulse Resp B/P (MAP) Pulse Ox O2 Delivery O2 Flow Rate FiO2 10/19/21 09:59 94 102/67 10/19/21 09:00 94 26 102/67 (76) 95 Mechanical Ventilator 60.00 10/19/21 08:00 101 18 126/56 (72) 95 Mechanical Ventilator 60.00 10/19/21 07:42 37.9 10/19/21 07:33 103 98/36 10/19/21 07:16 103 28 91 60 10/19/21 07:00 82 26 113/70 (84) 97 Mechanical Ventilator 60.00 10/19/21 07:00 83 10/19/21 06:13 83 10/19/21 06:00 84 26 140/62 (88) 95 Mechanical Ventilator 60.00 10/19/21 05:00 84 26 130/59 (82) 94 Mechanical Ventilator 60.00 10/19/21 04:48 Mechanical Ventilator 60.00 10/19/21 04:37 84 136/60 10/19/21 04:00 94 Mechanical Ventilator 60 10/19/21 04:00 38.0 10/19/21 04:00 85 26 144/64 (90) 95 Mechanical Ventilator 70.00 10/19/21 03:00 85 26 141/62 (88) 95 Mechanical Ventilator 70.00 10/19/21 02:18 84 26 95 70 10/19/21 02:00 82 28 139/62 (87) 97 Mechanical Ventilator 70.00 10/19/21 01:00 8 10/19/21 01:00 83 27 126/58 (80) 97 Mechanical Ventilator 70.00 10/19/21 00:24 131/60 10/19/21 00:21 97 Mechanical Ventilator 100 10/19/21 00:20 37.0 Mechanical Ventilator 70.00 10/19/21 00:05 115/65 10/19/21 00:00 85 28 95/56 (69) 96 Mechanical Ventilator 80.00 10/18/21 23:00 91 30 142/66 (91) 96 Mechanical Ventilator 80.00 10/18/21 22:14 129/62 10/18/21 22:13 91 10/18/21 22:00 92 31 142/66 (91) 97 Mechanical Ventilator 80.00 10/18/21 21:00 92 31 129/62 (84) 96 Mechanical Ventilator 90.00 10/18/21 20:17 97 25 127/62 (83) 96 Mechanical Ventilator 90.00 10/18/21 20:00 97 27 137/65 (89) 97 Mechanical Ventilator 90.00 10/18/21 19:45 100 97/58 10/18/21 19:45 97 Mechanical Ventilator 100 10/18/21 19:36 101 26 97 100 10/18/21 19:28 36.5 10/18/21 19:00 102 26 140/67 (91) 96 Mechanical Ventilator 90.00 10/18/21 19:00 102 10/18/21 18:34 103 146/70 10/18/21 18:30 37.3 10/18/21 18:00 102 26 142/68 (92) 95 Mechanical Ventilator 100.00 10/18/21 17:00 158 26 137/64 (88) 96 Mechanical Ventilator 100.00 10/18/21 16:00 36.6 10/18/21 16:00 94 Mechanical Ventilator 100 10/18/21 16:00 126 26 137/61 (86) 97 Mechanical Ventilator 100.00 10/18/21 15:46 133 140/71 10/18/21 15:00 137 21 133/95 (108) 94 Mechanical Ventilator 100.00 10/18/21 14:28 133 26 95 100 10/18/21 14:00 129 26 137/92 (107) 95 Mechanical Ventilator 100.00 10/18/21 13:58 142 19 128/70 10/18/21 13:44 125 128/67 10/18/21 13:21 126 153/65 10/18/21 13:09 154 118/55 10/18/21 13:00 158 24 125/71 (89) 95 Mechanical Ventilator 100.00 10/18/21 12:45 170 10/18/21 12:10 179 89/51 10/18/21 12:10 181 99/49 10/18/21 12:03 192 128/50 10/18/21 12:01 181 120/60 10/18/21 12:00 194 16 125/55 10/18/21 12:00 174 16 104/74 (84) 91 Mechanical Ventilator 100.00 10/18/21 12:00 94 Mechanical Ventilator 100 10/18/21 11:56 197 92/44 10/18/21 11:00 156 21 112/82 (92) 81 Mechanical Ventilator 100.00 10/18/21 10:54 158 26 78 100 I & O 10/19/21 07:00 Intake Total 5723 ml Output Total 3925 ml Balance 1798 ml Capillary Refill : Less Than 3 Seconds General Appearance: No Apparent Distress HEENT: PERRL/EOMI, Normal ENT Inspection Neck: Full Range of Motion Respiratory: Decreased Breath Sounds, Rhonci, Wheezing Cardiovascular: Regular Rate, Rhythm Gastrointestinal: non tender, soft Extremity: Normal Capillary Refill Neurologic/Psychiatric: Other (on vent/sedated) Skin: Normal Color Lymphatic: No Adenopathy Results Lab Laboratory Tests 10/18/21 10:09: Blood Gas Puncture Site LEFT RADIAL, Blood Gas Patient Temperature 35.2, Arterial Blood pH 7.14*L, Arterial Blood Partial Pressure CO2 66H, Arterial Blood Partial Pressure O2 40L, Arterial Blood HCO3 22L, Arterial Blood Total CO2 24.2, Arterial Blood Oxygen Saturation 60L, Arterial Blood Base Excess -6.1L, To Test POSITIVE, Blood Gas Ventilator Setting YES, Blood Gas Inspired Oxygen 100% 10/18/21 10:10: White Blood Count 31.0*H, Red Blood Count 4.66, Hemoglobin 13.6, Hematocrit 44, Mean Corpuscular Volume 94, Mean Corpuscular Hemoglobin 29, Mean Corpuscular Hemoglobin Concent 31L, Red Cell Distribution Width 15.0H, Platelet Count 264, Mean Platelet Volume 11.1, Immature Granulocyte % (Auto) 7, Neutrophils (%) (Auto) 75, Lymphocytes (%) (Auto) 10L, Monocytes (%) (Auto) 7, Eosinophils (%) (Auto) 0, Basophils (%) (Auto) 0, Neutrophils # (Auto) 23.3H, Lymphocytes # (Auto) 3.2, Monocytes # (Auto) 2.1H, Eosinophils # (Auto) 0.1, Basophils # (Auto) 0.1, Immature Granulocyte # (Auto) 2.2H, Sodium Level 135, Potassium Level 5.0, Chloride Level 97L, Carbon Dioxide Level 19L, Anion Gap 19H, Blood Urea Nitrogen 35H, Creatinine 1.13, Estimat Glomerular Filtration Rate 68, BUN/Creatinine Ratio 31, Glucose Level 253H, Lactic Acid Level 11.21*H, Calcium Level 8.1L, Corrected Calcium 9.3, Phosphorus Level 6.1H, Magnesium Level 2.6H, Total Bilirubin 0.6, Aspartate Amino Transf (AST/SGOT) 59H, Alanine Aminotransferase (ALT/SGPT) 73H, Alkaline Phosphatase 74, Total Protein 5.0L, Albumin 2.5L 10/18/21 11:43: Blood Gas Puncture Site UNK, Blood Gas Patient Temperature 37.2, Arterial Blood pH 7.22*L, Arterial Blood Partial Pressure CO2 75*H, Arterial Blood Partial Pressure O2 71L, Arterial Blood HCO3 29H, Arterial Blood Total CO2 31.2H, Arterial Blood Oxygen Saturation 85L, Arterial Blood Base Excess 1.9, To Test UNK, Blood Gas Ventilator Setting YES, Blood Gas Inspired Oxygen 100% 10/18/21 12:21: Glucometer 209H 10/18/21 13:13: Lactic Acid Level 1.40 10/18/21 17:00: White Blood Count 43.3*H, Red Blood Count 5.01, Hemoglobin 14.5, Hematocrit 45, Mean Corpuscular Volume 90, Mean Corpuscular Hemoglobin 29, Mean Corpuscular Hemoglobin Concent 32, Red Cell Distribution Width 14.9H, Platelet Count 320, Mean Platelet Volume 10.6, Sodium Level 136, Potassium Level 5.3H, Chloride Level 102, Carbon Dioxide Level 28, Anion Gap 6, Blood Urea Nitrogen 35H, Crea tinine 0.82, Estimat Glomerular Filtration Rate 98, BUN/Creatinine Ratio 43, Glucose Level 206H, Calcium Level 7.7L 10/18/21 17:55: Glucometer 174H 10/18/21 22:42: Glucometer 146H 10/19/21 04:15: White Blood Count 26.3H, Red Blood Count 4.61, Hemoglobin 13.3, Hematocrit 42, Mean Corpuscular Volume 92, Mean Corpuscular Hemoglobin 29, Mean Corpuscular Hemoglobin Concent 31L, Red Cell Distribution Width 15.1H, Platelet Count 255, Mean Platelet Volume 10.3, Immature Granulocyte % (Auto) 4, Neutrophils (%) (Auto) 85H, Lymphocytes (%) (Auto) 3L, Monocytes (%) (Auto) 7, Eosinophils (%) (Auto) 0, Basophils (%) (Auto) 0, Neutrophils # (Auto) 22.4H, Lymphocytes # (Auto) 0.8L, Monocytes # (Auto) 1.9H, Eosinophils # (Auto) 0.1, Basophils # (Auto) 0.1, Immature Granulocyte # (Auto) 1.0H, Blood Gas Puncture Site ARTLINE, Blood Gas Patient Temperature 38, Arterial Blood pH 7.25*L, Arterial Blood Partial Pressure CO2 71*H, Arterial Blood Partial Pressure O2 89, Arterial Blood HCO3 30H, Arterial Blood Total CO2 31.6H, Arterial Blood Oxygen Saturation 97, Arterial Blood Base Excess 3.2H, To Test ARTLINE, Blood Gas Ventilator Setting YES, Blood Gas Inspired Oxygen 70%, Sodium Level 139, Potassium Level 4.7, Chloride Level 105, Carbon Dioxide Level 25, Anion Gap 9, Blood Urea Nitrogen 25H, Creatinine 0.75, Estimat Glomerular Filtration Rate 109, BUN/Creatinine Ratio 33, Glucose Level 122H, Calcium Level 7.4L, Corrected Calcium 8.6, Phosphorus Level 2.2L, Magnesium Level 2.3, Total Bilirubin 0.4, Aspartate Amino Transf (AST/SGOT) 46H, Alanine Aminotransferase (ALT/SGPT) 119H, Alkaline Phosphatase 73, Total Protein 5.0L, Albumin 2.5L Microbiology 10/14/21 Urine Culture - Final, Complete NO GROWTH 10/14/21 Blood Culture - Preliminary, Resulted No growth 10/11/21 Gram Stain - Final, Complete 10/11/21 Sputum Culture - Final, Complete Usual upper respiratory frida YEAST Assessment/Plan Assessment/Plan Assess & Plan/Chief Complaint covid resp failure with cardiac arrest and right ptx s/p ct. large air leak. will continue to occur while on high PEEP. cont CC management. prognosis poor. KAVON WOLFE MD Oct 19, 2021 10:10
--- NOTE | 2021-10-19 11:39 | Tele-ICU Progress Note ---
Subjective Date Seen by a Provider: Oct 19, 2021 Time Seen by a Provider: 11:39 Sepsis Event Evaluation Height, Weight, BMI Height: 5'10.00" Weight: 182lbs. 0.0oz. 82.901853cv; 25.79 BMI Method: Focused Exam Lactate Level 10/18/21 10:10: Lactic Acid Level 11.21*H 10/18/21 13:13: Lactic Acid Level 1.40 Exam Exam Patient acknowledged, consented, and participated in this virtual visit which was conducted using real time audio/video Vital Signs Date Time Temp Pulse Resp B/P (MAP) Pulse Ox O2 Delivery O2 Flow Rate FiO2 10/19/21 10:43 90 26 95 60 10/19/21 10:00 90 21 107/71 (83) 95 Mechanical Ventilator 60.00 10/19/21 09:59 94 102/67 10/19/21 09:00 94 26 102/67 (76) 95 Mechanical Ventilator 60.00 10/19/21 08:00 101 18 126/56 (72) 95 Mechanical Ventilator 60.00 10/19/21 07:42 37.9 10/19/21 07:33 103 98/36 10/19/21 07:16 103 28 91 60 10/19/21 07:00 82 26 113/70 (84) 97 Mechanical Ventilator 60.00 10/19/21 07:00 83 10/19/21 06:13 83 10/19/21 06:00 84 26 140/62 (88) 95 Mechanical Ventilator 60.00 10/19/21 05:00 84 26 130/59 (82) 94 Mechanical Ventilator 60.00 10/19/21 04:48 Mechanical Ventilator 60.00 10/19/21 04:37 84 136/60 10/19/21 04:00 94 Mechanical Ventilator 60 10/19/21 04:00 38.0 10/19/21 04:00 85 26 144/64 (90) 95 Mechanical Ventilator 70.00 10/19/21 03:00 85 26 141/62 (88) 95 Mechanical Ventilator 70.00 10/19/21 02:18 84 26 95 70 10/19/21 02:00 82 28 139/62 (87) 97 Mechanical Ventilator 70.00 10/19/21 01:00 8 10/19/21 01:00 83 27 126/58 (80) 97 Mechanical Ventilator 70.00 10/19/21 00:24 131/60 10/19/21 00:21 97 Mechanical Ventilator 100 10/19/21 00:20 37.0 Mechanical Ventilator 70.00 10/19/21 00:05 115/65 10/19/21 00:00 85 28 95/56 (69) 96 Mechanical Ventilator 80.00 10/18/21 23:00 91 30 142/66 (91) 96 Mechanical Ventilator 80.00 10/18/21 22:14 129/62 10/18/21 22:13 91 10/18/21 22:00 92 31 142/66 (91) 97 Mechanical Ventilator 80.00 10/18/21 21:00 92 31 129/62 (84) 96 Mechanical Ventilator 90.00 10/18/21 20:17 97 25 127/62 (83) 96 Mechanical Ventilator 90.00 10/18/21 20:00 97 27 137/65 (89) 97 Mechanical Ventilator 90.00 10/18/21 19:45 100 97/58 10/18/21 19:45 97 Mechanical Ventilator 100 10/18/21 19:36 101 26 97 100 10/18/21 19:28 36.5 10/18/21 19:00 102 26 140/67 (91) 96 Mechanical Ventilator 90.00 10/18/21 19:00 102 10/18/21 18:34 103 146/70 10/18/21 18:30 37.3 10/18/21 18:00 102 26 142/68 (92) 95 Mechanical Ventilator 100.00 10/18/21 17:00 158 26 137/64 (88) 96 Mechanical Ventilator 100.00 10/18/21 16:00 36.6 10/18/21 16:00 94 Mechanical Ventilator 100 10/18/21 16:00 126 26 137/61 (86) 97 Mechanical Ventilator 100.00 10/18/21 15:46 133 140/71 10/18/21 15:00 137 21 133/95 (108) 94 Mechanical Ventilator 100.00 10/18/21 14:28 133 26 95 100 10/18/21 14:00 129 26 137/92 (107) 95 Mechanical Ventilator 100.00 10/18/21 13:58 142 19 128/70 10/18/21 13:44 125 128/67 10/18/21 13:21 126 153/65 10/18/21 13:09 154 118/55 10/18/21 13:00 158 24 125/71 (89) 95 Mechanical Ventilator 100.00 10/18/21 12:45 170 10/18/21 12:10 179 89/51 10/18/21 12:10 181 99/49 10/18/21 12:03 192 128/50 10/18/21 12:01 181 120/60 10/18/21 12:00 194 16 125/55 10/18/21 12:00 174 16 104/74 (84) 91 Mechanical Ventilator 100.00 10/18/21 12:00 94 Mechanical Ventilator 100 10/18/21 11:56 197 92/44 I & O 10/19/21 07:00 Intake Total 5723 ml Output Total 3925 ml Balance 1798 ml Height & Weight Height: 5'10.00" Weight: 182lbs. 0.0oz. 82.391220qg; 25.79 BMI Method: General Appearance: No Apparent Distress HEENT: PERRL/EOMI, Normal ENT Inspection Neck: Full Range of Motion Respiratory: Decreased Breath Sounds, Rhonci, Wheezing Cardiovascular: Regular Rate, Rhythm Capillary Refill: Less Than 3 Seconds Peripheral Pulses: 1+ Dorsalis Pedis (R), 1+ Left Dors-Pedis (L); 2+ Radial Pulses (R), 2+ Radial Pulses (L) Gastrointestinal: non tender, soft Extremity: Normal Capillary Refill Neurologic/Psychiatric: Other (on vent/sedated) Skin: Normal Color Lymphatic: No Adenopathy Results Lab Laboratory Tests 10/18/21 04:30 10/18/21 10:10 10/18/21 17:00 10/19/21 04:15 Assessment/Plan Assessment/Plan (Tele-ICU Physician , Progress Note ) Available chart/ vitals / labs / Images reviewed Video assessment done using teleICU camera, rest of exam as per RN Discussed with RN , EXAM PER RN Events overnight : Afebrile I/O = positive Drips: Pressors: , hemodynamically stable Sedation gtt: ( RASS ) VENT SETTINGS and ABG reviewed Not candidate for SBT today REVIEWED Cardiovascular Stability / Sedation Score / FI02/PEEP / ABG / CXR Consultants: Hospital course: (10/08) 77 y/o female admitted for COVID+, transfer from other facility - , VT 20L 70% 10/09 changed to BIPAP 10/10 Bipap 15 /8 100% _ precedex 0.4 10/11 - VT 35/80% prn bipap , precedex 0.4 - LEFT LE DVT 10/14 - VT 60L 75% , , BIPAP 60%- precedex 1.0, STARTED ZOSYN 10/15 - VT 40 100% , worsenign cxr on right , worsenign right sided pain 10/18 - card/pulm arrest - ROSC , PTX , chest tube on LEFT 10/18 - a fin RVR - cardioverted 10/19 - peep 18 60% A/P AHRF / ARDS due to severe COVID19 ( CTA neg for pe 10/07 - in other facility , reportedly - did not see report personally - VT 40 100% ,, precedex 1.4 -RIGHT SIDE PAIN CORRELATES WITH WORSENING INFILTRATE ON RIGHT SIDE - cont pain control and ABX - card/pulm arrest -10/18 ROSC , PTX - sedated now , will try to assess mental status -planning for CT head and ct chest ( ? PE , persistent PTX [id number] PNA ( Symptom onset unknown now DX unvaccinted --Dexamethasone - chanhged to 10 qd with wheexing 10/10 -Hypercoagulable state -> lovenox ppx dose , CTA neg for pe 10/06 - DDIMER > 20- 10/11 --> + DVT -> Full dose lovenox ( not stable for CT to assess for PE Pneumomediastinum on ct 10/06 - not seen on cxr f/up PTX , RIGHT , s/p CPR - chest tube in , large airleak - decrease peep alber a fib RVR - cardioverted - 10/18 - in sinus , s/p amio bolus , on PO amio now RLL PNA - started on Zosyn 10/14 - - resumed on 10/19 -> Left lower extremity DVT dx 10/12 - fill dose lovenox Hyperglycemia - ISS , close f/up on steroids Lines : periph ( Central Line Necessity Reviewed) Hurd: 10/08 OG: Nutrition: TF to start 10/19 Analgesia: Anxiety/ delirium = precedex VTE Prophylaxis: steve 80 bid Stress Ulcer Prophylaxis: po Plans in collaboration with bedside consultants and IM MDs. Discussed with RN to reach out if any questions or concerns A total of 50 minutes of critical care time was devoted to this patient today, required to treat and/or prevent further deterioration of critical care condition ( as above ) . JOHN CROW MD Oct 19, 2021 11:39
[2021-10-19] MEDS ORDERED: PIPERACILLIN SODIUM/TAZOBACTAM 4.5 GM in NS (IVPB) 100 ML IV NR (11:45)
[2021-10-19] MEDS: ACETAMINOPHEN 500 MG TAB (TYLENOL) PO PRN (12:01)
[2021-10-19] MEDS ORDERED: IOHEXOL 350 MG/ML 100 ML (OMNIPAQUE 350) VIAL IV ONE (14:15)
[2021-10-19] MEDS ORDERED: NS 100 ML (IVPB) BAG IV ONE (14:15)
[2021-10-19] MEDS ORDERED: HOLD METFORMIN - RECEIVED CONTRAST 20 ML VIAL IV SCH (14:15)
--- NOTE | 2021-10-19 14:41 | Diagnostic Imaging Report ---
INDICATION: COVID pneumonia. History of pneumothorax. Comparison made to the prior study from 10/19/2021 at 6:10 AM. FINDINGS: Endotracheal tube positioning is appropriate. Enteric tube extends to the stomach. Right-sided chest tube positioning and right-sided PICC line positioning appears stable. There is a trace residual right apical pneumothorax. Diffuse pulmonary consolidation and infiltrates compatible with multilobar pneumonia are not significantly changed. IMPRESSION: 1. Stable positioning of life support apparatus. 2. Trace residual right apical pneumothorax. 3. Unchanged diffuse pulmonary opacities compatible with multilobar pneumonia. Dictated by: Dictated on workstation # [id number]
--- NOTE | 2021-10-19 17:14 | Diagnostic Imaging Report ---
PROCEDURE: CT head without contrast. TECHNIQUE: Multiple contiguous axial images were obtained through the brain without the use of intravenous contrast. Auto Exposure Controls were utilized during the CT exam to meet ALARA standards for radiation dose reduction. INDICATION: Covid positive. Cardiac arrest. EXAMINATION: CT of the brain 10/19/2021 FINDINGS: There is no hemorrhage or infarct. No mass, mass effect or midline shift. No hydrocephalus. There is partial opacification of the mastoid air cells bilaterally. The paranasal sinuses appear clear. IMPRESSION: 1. No acute intracranial process 2. Age-indeterminate partial opacification of the mastoid air cells. Dictated by: Dictated on workstation # [id number]
--- NOTE | 2021-10-19 17:59 | Diagnostic Imaging Report ---
PROCEDURE: CT angiography of the chest with contrast. TECHNIQUE: Multiple contiguous axial images were obtained through the chest after uneventful bolus administration of intravenous contrast. 3D reconstructed CTA MIP acquisitions were also performed. Auto Exposure Controls were utilized during the CT exam to meet ALARA standards for radiation dose reduction. INDICATION: Status post cardiac arrest. Covid pneumonia. Evaluate for pulmonary embolism. COMPARISON: Chest radiograph from earlier the same day. FINDINGS: Small pulmonary emboli demonstrated within the segmental branches of the right lower lobe. No other definitive emboli are evident. There is somewhat limited assessment of the small distal subsegmental branches due to motion. There are no findings of right ventricular strain. There is a normal ventricular ratio. There is no acute aortic syndrome. There is no pericardial collection. There is a right-sided chest tube in place. There is a right apical and anterior pneumothorax. Extensive and diffuse bilateral pulmonary alveolar consolidation is present compatible with multilobar pneumonia. There is no left-sided pneumothorax. There is no significant pleural effusion. The upper abdomen demonstrates no acute process. An enteric tube extends to the stomach. There are no acute fractures evident. IMPRESSION: 1. There are a couple of small emboli demonstrated within segmental branches of the right lower lobe. No other emboli evident. There is no central pulmonary embolus or evidence of right ventricular strain. 2. Extensive pulmonary infiltrates compatible with known Covid pneumonia. 3. Right chest tube in place with a right apical and anterior pneumothorax. 4. No acute aortic syndrome. Dictated by: Dictated on workstation # [id number]
[2021-10-19] MEDS: traZODone 100 MG (DESYREL) TAB PO SCH (20:10)
[2021-10-19] MEDS: traZODone 50 MG (DESYREL) TAB PO SCH (20:10)
[2021-10-19] MEDS: AtorvaSTATin TABLET 10 MG TABLET PO SCH (20:10)
[2021-10-20] VITALS (57 sets, daily range): BP systolic 104–165; BP diastolic 47–77
[2021-10-20] MEDS: PROPOFOL DRIP (ICU) 100 ML IV SCH ×5 (00:21→21:54)
[2021-10-20] MEDS: fentaNYL DRIP PRE-MIX 250 ML IV SCH ×3 (00:21→21:47)
[2021-10-20] MEDS: RT-ALBUTEROL HFA 8.5 GM INHALER IH SCH ×4 (01:59→21:13)
[2021-10-20] MEDS: PIPERACILLIN SODIUM/TAZOBACTAM 4.5 GM in NS (IVPB) 100 ML IV SCH ×3 (03:20→20:23)
[2021-10-20] MEDS: NS IV 1000 ML 1,000 ML IV SCH ×3 (03:22→21:57)
[2021-10-20 03:41] LABS: ABG BASE EXCESS 7.8 MMOL/L (-2.5-2.5); ABG OXYGEN SATURATION 98 % (94-100); ABG PCO2 59 MMHG (35-45); ABG PH 7.37 (7.37-7.43); ABG PO2 107 MMHG (79-93); ABG TCO2 34.8 MMOL/L (21.0-31.0)
[2021-10-20 03:42] LABS: BASOPHILS % (AUTO) 0 % (0-10); EOSINOPHILS % (AUTO) 0 % (0-10); HEMATOCRIT 36 % (40-54); HEMOGLOBIN 11.2 g/dL (13.3-17.7); LYMPHOCYTES # (AUTO) 0.8 10^3/uL (1.0-4.0); LYMPHOCYTES % (AUTO) 4 % (12-44); MEAN CORPUSCULAR HEMOGLOBIN 29 pg (25-34); MEAN CORPUSCULAR HGB CONC 32 g/dL (32-36); MEAN CORPUSCULAR VOLUME 92 fL (80-99); MEAN PLATELET VOLUME 10.6 fL (9.0-12.2); MONOCYTES # (AUTO) 1.6 10^3/uL (0.0-1.0); MONOCYTES % (AUTO) 8 % (0-12); NEUTROPHILS # (AUTO) 16.6 10^3/uL (1.8-7.8); NEUTROPHILS % (AUTO) 86 % (42-75); PLATELET COUNT 228 10^3/uL (130-400); WHITE BLOOD COUNT 19.4 10^3/uL (4.3-11.0)
[2021-10-20 03:53] LABS: ALLENS TEST YES-POS; INSPIRED O2 100%; PATIENT TEMP 37.3; VENTILATOR YES
[2021-10-20 03:55] LABS: ALBUMIN 2.4 GM/DL (3.2-4.5); POTASSIUM 4.3 MMOL/L (3.6-5.0)
[2021-10-20 03:56] LABS: CALCIUM 7.3 MG/DL (8.5-10.1)
[2021-10-20 03:57] LABS: TOTAL PROTEIN 4.6 GM/DL (6.4-8.2)
[2021-10-20 03:59] LABS: BILIRUBIN,TOTAL 0.3 MG/DL (0.1-1.0)
[2021-10-20 04:00] LABS: PHOSPHORUS 1.8 MG/DL (2.3-4.7)
[2021-10-20 04:01] LABS: CREATININE SERUM 0.63 MG/DL (0.60-1.30)
[2021-10-20 04:04] LABS: MAGNESIUM 2.6 MG/DL (1.6-2.4)
[2021-10-20] MEDS: POTASSIUM CL 10MEQ/50ML IVPB 50 ML IV SCH (04:07)
[2021-10-20] MEDS: MAGNESIUM 1 GM/100 ML IVPB 100 ML IV SCH (04:07)
[2021-10-20] MEDS: KCL 20 MEQ TAB (K-DUR) PO SCH (04:08)
[2021-10-20] MEDS: inSUlin ASPART (NovoLOG) 1 UNIT/0.01 ML (CHARGE PER UNIT) SQ SCH ×3 (04:08→18:24)
--- NOTE | 2021-10-20 06:07 | Progress Note - Hospitalist ---
Subjective HPI/CC On Admission Date Seen by Provider: Oct 20, 2021 Time Seen by Provider: 10:00 Admisison Planning May Need Admission (Planning): 08:00 (JAVIER ORDONEZ MD) Progress Progress Note #1: Time: 08:11 Progress Note 51-year-old male presents to the emergency department with his parents chief complaint of increasing shortness of breath, cough, body aches headache, nausea vomiting and diarrhea. Tells us initially that he was seen by [facility] 2 or 3 days ago, tested negative for Covid. Later his father contributes to the history stating that the patient was in fact told that he had pneumonia and was started on an antibiotic however the patient cannot recall what that was when asked. Patient states that he does not and has not ever smoked. He does not work around fumes or smoke. He states his cough is nonproductive. Has had profoundly severe shortness of breath with exertion over the last 24 hours. Takes medication for cholesterol and hypertension although did not take his medicine for hypertension this morning. Denies known sick contacts with Covid. Is not vaccinated. No history of blood clot in family or himself. No recent prolonged immobility or travel. No pain or swelling in his lower extremities. No recent black or bloody stool. Complains that his heart is "racing". Room air sats in the 70s on arrival to the emergency department. Still at 88 to 89% on 12 L per nasal cannula. Patient is noted to have fine rales at the bases bilaterally, moderate respiratory distress. No swelling in his lower extremities. No tenderness in the calves, negative Homans bilaterally. No rashes. Soft nontender abdomen. Dry oral mucosa. Sepsis work-up initiated with Covid and influenza testing. D-dimer pending. Chest x-ray pending. Patient is started on Vapotherm per respiratory therapy. Subjective/Events-last exam Patient still critical but stable Updated brother and father mother White blood cell count 19.4 Completed Decadron since he has been on it for 14 days ABG is 7.3 7/59/107 Maintain on Zosyn Vent settings are 375/26/8/50% Review of Systems General: Fatigue, Malaise Focused Exam Lactate Level 10/18/21 10:10: Lactic Acid Level 11.21*H 10/18/21 13:13: Lactic Acid Level 1.40 Objective Exam Vital Signs Vital Signs Date Time Temp Pulse Resp B/P (MAP) Pulse Ox O2 Delivery O2 Flow Rate FiO2 10/20/21 16:00 69 26 155/76 (102) 96 Mechanical Ventilator 50.00 10/20/21 15:45 35.7 10/20/21 14:04 45 Capillary Refill : Less Than 3 Seconds General Appearance: No Apparent Distress, WD/WN, Other (Sedated and intubated) Respiratory: Lungs Clear, Normal Breath Sounds Cardiovascular: Regular Rate, Rhythm Results/Procedures Lab Laboratory Tests 10/20/21 03:27 Patient resulted labs reviewed. Assessment/Plan Assessment and Plan Assess & Plan/Chief Complaint Assessment: Acute hypoxic respiratory previously BiPAP dependent then status post acute respiratory failure 10/18/2021 status post emergently intubated and right-sided pneumothorax required chest tube placement by Dr. WOLFE with central line status post cardiac arrest x2 with ROSC after 20 minutes of compressions and 6 rounds of epinephrine status post new onset atrial fibrillation with rapid ventricular response status post amiodarone consulting cardiology status post cardioversion due to lack of resolution with IV antiarrhythmics currently on 1 pressor COVID-19 pneumonia DVT on anticoagulation Lung mass seen incidentally on CT scan Right-sided chest pain musculoskeletal type Hypertension Plan: BiPAP Vapotherm Anticoagulation 10/14/2021: Supportive care BiPAP 10/15/2021: Supportive care BiPAP Vapotherm Covid protocol meds High risk for intubation 10/16/2021: Complex case Continues to be high risk for intubation Pain control 10/17/2021: BiPAP Max Vapotherm Aggressive IV medication 10/18/2021: Status post cardiac arrest and emergently intubated and with right-sided chest tube and 3 pressors with A. fib and RVR 10/19/2021: Appreciate cardiology, eICU, Dr. WOLFE management yesterday 10/20/2021: Appreciate cardiology eICU for vent management Updated family Critical Care Ventilator Management DUSTIN IBRAHIM DO Oct 20, 2021 06:07
--- NOTE | 2021-10-20 07:22 | Diagnostic Imaging Report ---
INDICATION: Pneumothorax COMPARISON: 10/19/2021 TECHNIQUE: Single frontal radiograph of the chest dated 10/20/2021. FINDINGS: Endotracheal tube, enteric catheter, and right subclavian central venous catheter are again identified. Right-sided chest tube is again noted with the distal tip projecting overlying the right lung apex. Large right-sided pneumothorax is present, having increased in size since the prior examination. There is however no evidence of mediastinal shift. Extensive right greater than left pulmonary opacities are again identified, slightly improved within the right lung. Small right pleural effusion. No left-sided pneumothorax. Osseous structures appear unchanged. IMPRESSION: Increasing size of a now large right-sided pneumothorax without evidence of tension phenomenon with right-sided chest tube in place. Improving though persisting extensive right greater than left pulmonary opacities. Lines and tubes are unchanged. Called to Gillian at 7:20 a.m. by cvb. Dictated by: Dictated on workstation # [id number]
[2021-10-20] MEDS: DexMEDEtomidine 250 ML DRIP 250 ML IV SCH ×2 (07:49→20:23)
[2021-10-20] MEDS: amLODIPine 5 MG (NORVASC) TAB PO SCH (08:58)
[2021-10-20] MEDS: LIDOCAINE 4% (SALONPAS) PATCH TOP SCH (08:58)
[2021-10-20] MEDS: lisINopril 20 MG (PRINIVIL) TABLET PO SCH (08:58)
[2021-10-20] MEDS: PANTOPRAZOLE 40 MG (PROTONIX) VIAL IV SCH (08:59)
[2021-10-20] MEDS: AMIODARONE 200 MG (CORDARONE) TAB PO SCH ×2 (08:59→20:24)
[2021-10-20] MEDS: ACYCLOVIR 400 MG TABLET (ZOVIRAX) PO SCH ×2 (08:59→17:16)
[2021-10-20] MEDS: FLUCONAZOLE 100 MG/50 ML IVPB IV SCH ×2 (09:00)
--- NOTE | 2021-10-20 10:05 | Cardiology Progress Note ---
Progress Note-Cardiology Events since last exam Date Seen by Provider: Oct 20, 2021 Time Seen by Provider: 10:03 Events since last exam I am following him due to atrial fibrillation. He remains intubated and sedated in the intensive care unit. I did not see the patient today due to his Covid status. I did speak with his nurse of today. The nurses have been weaning down his norepinephrine infusion and this is almost off. His pneumothorax has gotten worse over the past 24 hours despite having a chest tube in place. He has not had any recurrent atrial fibrillation. I did transition his amiodarone infusion over to oral amiodarone. Certain portions of this document may have been dictated utilizing voice recognition technology. Inherent to this technology, typographical and grammatical errors may exist. As much as I am diligent to identify and correct these mistakes, some errors may remain in the document. Vitals Last set of Vitals Signs Vital Signs 10/20/21 10/20/21 10/20/21 10/20/21 05:58 07:30 09:00 09:15 Temp 36.2 Pulse 71 Resp 26 B/P (MAP) 146/67 Pulse Ox 94 O2 Delivery Mechanical Ventilator O2 Flow Rate 50.00 FiO2 50 Labs Labs Laboratory Tests 10/20/21 03:27 Exam Vital Signs Vital Signs Date Time Temp Pulse Resp B/P (MAP) Pulse Ox O2 Delivery O2 Flow Rate FiO2 10/20/21 09:15 71 146/67 10/20/21 09:00 26 94 Mechanical Ventilator 50.00 10/20/21 07:30 36.2 10/20/21 05:58 50 Physical Exam I did not examine the patient due to his Covid status. Labs Laboratory Tests Test 10/19/21 11:35 10/19/21 18:44 10/19/21 23:54 10/20/21 03:27 Range/Units Glucometer 133 H 188 H 156 H 70-110 MG/DL White Blood Count 19.4 H 4.3-11.0 10^3/uL Red Blood Count 3.87 L 4.30-5.52 10^6/uL Hemoglobin 11.2 L 13.3-17.7 g/dL Hematocrit 36 L 40-54 % Mean Corpuscular Volume 92 80-99 fL Mean Corpuscular Hemoglobin 29 25-34 pg Mean Corpuscular Hemoglobin Concent 32 32-36 g/dL Red Cell Distribution Width 15.1 H 10.0-14.5 % Platelet Count 228 130-400 10^3/uL Mean Platelet Volume 10.6 9.0-12.2 fL Immature Granulocyte % (Auto) 2 % Neutrophils (%) (Auto) 86 H 42-75 % Lymphocytes (%) (Auto) 4 L 12-44 % Monocytes (%) (Auto) 8 0-12 % Eosinophils (%) (Auto) 0 0-10 % Basophils (%) (Auto) 0 0-10 % Neutrophils # (Auto) 16.6 H 1.8-7.8 10^3/uL Lymphocytes # (Auto) 0.8 L 1.0-4.0 10^3/uL Monocytes # (Auto) 1.6 H 0.0-1.0 10^3/uL Eosinophils # (Auto) 0.0 0.0-0.3 10^3/uL Basophils # (Auto) 0.0 0.0-0.1 10^3/uL Immature Granulocyte # (Auto) 0.4 H 0.0-0.1 10^3/uL Blood Gas Puncture Site RIGHT RADIAL Blood Gas Patient Temperature 37.3 Arterial Blood pH 7.37 7.37-7.43 Arterial Blood Partial Pressure CO2 59 H 35-45 MMHG Arterial Blood Partial Pressure O2 107 H 79-93 MMHG Arterial Blood HCO3 33 H 23-27 MMOL/L Arterial Blood Total CO2 34.8 H 21.0-31.0 MMOL/L Arterial Blood Oxygen Saturation 98 94-100 % Arterial Blood Base Excess 7.8 H -2.5-2.5 MMOL/L To Test YES-POS Blood Gas Ventilator Setting YES Blood Gas Inspired Oxygen 100% Sodium Level 139 135-145 MMOL/L Potassium Level 4.3 3.6-5.0 MMOL/L Chloride Level 103 98-107 MMOL/L Carbon Dioxide Level 29 21-32 MMOL/L Anion Gap 7 5-14 MMOL/L Blood Urea Nitrogen 22 H 7-18 MG/DL Creatinine 0.63 0.60-1.30 MG/DL Estimat Glomerular Filtration Rate 133 BUN/Creatinine Ratio 35 Glucose Level 158 H 70-105 MG/DL Calcium Level 7.3 L 8.5-10.1 MG/DL Corrected Calcium 8.6 8.5-10.1 MG/DL Phosphorus Level 1.8 L 2.3-4.7 MG/DL Magnesium Level 2.6 H 1.6-2.4 MG/DL Total Bilirubin 0.3 0.1-1.0 MG/DL Aspartate Amino Transf (AST/SGOT) 36 H 5-34 U/L Alanine Aminotransferase (ALT/SGPT) 105 H 0-55 U/L Alkaline Phosphatase 55 40-136 U/L Total Protein 4.6 L 6.4-8.2 GM/DL Albumin 2.4 L 3.2-4.5 GM/DL Diagnosis/Problems Diagnosis/Problems (1) Paroxysmal atrial fibrillation Assessment & Plan: This is a new finding on this patient. There is most most likely brought on by the resuscitative efforts during his cardiopulmonary arrest. Since his cardioversion, he remains in sinus rhythm and sinus tachycardia. He is now on oral amiodarone. This will need to be tapered down over the next month assuming he survives Covid infection. Since the atrial fibrillation was most likely brought on by his cardiopulmonary arrest, he does not necessarily need anticoagulation for the atrial fibrillation. (2) Cardiorespiratory arrest Assessment & Plan: Most likely brought on by the Covid pneumonia. He is now intubated and in shock on norepinephrine. Fortunately, his norepinephrine has almost been weaned to off. Following his cardiopulmonary arrest, he was on three vasopressor medications. However, his prognosis still remains poor. (3) Septic shock Assessment & Plan: Most likely related to Covid pneumonia. As above, we will continue norepinephrine infusion and wean as tolerated. (4) Primary hypertension Assessment & Plan: All antihypertensive medications are on hold due to the shock. (5) Mixed hyperlipidemia Assessment & Plan: Continue statin medication for the time being. If he becomes comfort care, I would stop the statin medication. (6) Pneumonia due to COVID-19 virus Status: Acute Assessment & Plan: As above, this most likely led to the patient's cardiopulmonary arrest and now septic shock. AKIT MORENO JR, MD Oct 20, 2021 10:05
[2021-10-20] MEDS ORDERED: LIDOCAINE 1% INJ 20 ML VIAL ONE (10:16)
[2021-10-20] MEDS: ENOXAPARIN 80 MG/0.8 ML (LOVENOX) SYR SC SCH ×2 (10:23→21:54)
--- NOTE | 2021-10-20 11:03 | Diagnostic Imaging Report ---
INDICATION: Chest tube placement COMPARISON: Imaging from same date TECHNIQUE: Single radiograph chest dated 10/20/2021. FINDINGS: A new tubular density is noted overlying the lateral right midlung, possibly related to a chest tube. Previously noted right-sided chest tube projected towards the right lung apex appears stable. Endotracheal tube, enteric catheter, and right subclavian central venous catheter are stable. Tiny right-sided pneumothorax is present, significantly improved since the prior examination. Extensive right greater than left pulmonary opacities are again identified. No significant left pleural effusion. No left pneumothorax. Osseous structures appear stable. IMPRESSION: Interval placement of new right-sided chest tube overlying the right mid lateral lung with improved though small persisting right-sided pneumothorax. Persistent extensive bilateral pulmonary opacities. Dictated by: Dictated on workstation # [id number]
--- NOTE | 2021-10-20 12:25 | Tele-ICU Progress Note ---
Subjective Date Seen by a Provider: Oct 20, 2021 Time Seen by a Provider: 12:25 Sepsis Event Evaluation Height, Weight, BMI Height: 5'10.00" Weight: 182lbs. 0.0oz. 82.919475mb; 25.79 BMI Method: Focused Exam Lactate Level 10/18/21 10:10: Lactic Acid Level 11.21*H 10/18/21 13:13: Lactic Acid Level 1.40 Exam Exam Patient acknowledged, consented, and participated in this virtual visit which was conducted using real time audio/video Vital Signs Date Time Temp Pulse Resp B/P (MAP) Pulse Ox O2 Delivery O2 Flow Rate FiO2 10/20/21 12:00 71 26 145/69 (94) 93 Mechanical Ventilator 50.00 10/20/21 11:45 71 26 149/71 (97) 94 Mechanical Ventilator 50.00 10/20/21 11:30 70 23 155/71 (99) 93 Mechanical Ventilator 50.00 10/20/21 11:16 36.5 10/20/21 11:15 69 23 165/77 (106) 93 Mechanical Ventilator 50.00 10/20/21 11:00 70 23 161/74 (103) 94 Mechanical Ventilator 50.00 10/20/21 10:45 73 17 158/73 (101) 94 Mechanical Ventilator 50.00 10/20/21 10:30 74 18 146/64 (91) 91 Mechanical Ventilator 50.00 10/20/21 10:25 77 26 90 50 10/20/21 10:15 80 13 126/55 (78) 94 Mechanical Ventilator 50.00 10/20/21 10:00 74 24 132/57 (82) 93 Mechanical Ventilator 50.00 10/20/21 09:45 77 18 109/57 (74) 89 Mechanical Ventilator 50.00 10/20/21 09:30 70 28 152/66 (94) 94 Mechanical Ventilator 50.00 10/20/21 09:15 71 26 143/63 (89) 94 Mechanical Ventilator 50.00 10/20/21 09:15 71 146/67 10/20/21 09:00 71 26 129/61 (83) 94 Mechanical Ventilator 50.00 10/20/21 08:45 71 26 125/58 (80) 94 Mechanical Ventilator 50.00 10/20/21 08:30 72 26 115/53 (73) 93 Mechanical Ventilator 50.00 10/20/21 08:15 98 Mechanical Ventilator 50 10/20/21 08:15 74 26 104/47 (66) 92 Mechanical Ventilator 50.00 10/20/21 08:00 84 26 129/58 (81) 91 Mechanical Ventilator 50.00 10/20/21 07:49 67 136/64 10/20/21 07:45 67 26 136/64 (88) 94 Mechanical Ventilator 50.00 10/20/21 07:30 67 26 136/65 (88) 94 Mechanical Ventilator 50.00 10/20/21 07:30 36.2 () Mechanical Ventilator 50.00 10/20/21 07:15 68 26 143/68 (93) 95 Mechanical Ventilator 50.00 10/20/21 07:00 69 26 137/66 (89) 94 Mechanical Ventilator 50.00 10/20/21 07:00 69 10/20/21 06:00 76 26 125/59 (81) 94 Mechanical Ventilator 50.00 10/20/21 05:58 76 26 92 50 10/20/21 05:00 73 19 129/59 (82) 96 Mechanical Ventilator 50.00 10/20/21 04:00 74 23 126/59 (81) 96 Mechanical Ventilator 50.00 10/20/21 03:45 96 Mechanical Ventilator 50 10/20/21 03:26 37.3 Mechanical Ventilator 50.00 10/20/21 03:00 75 15 147/66 (93) 96 Mechanical Ventilator 50.00 10/20/21 02:00 75 28 131/59 (83) 96 Mechanical Ventilator 50.00 10/20/21 01:59 75 28 96 50 10/20/21 01:00 81 10/20/21 01:00 75 23 139/62 (87) 95 Mechanical Ventilator 50.00 10/20/21 00:21 78 155/65 10/20/21 00:00 77 23 154/65 (94) 95 Mechanical Ventilator 50.00 10/19/21 23:55 95 Mechanical Ventilator 50 10/19/21 23:50 37.3 Mechanical Ventilator 50.00 10/19/21 23:00 80 23 123/60 (81) 95 Mechanical Ventilator 50.00 10/19/21 22:03 85 31 93 50 10/19/21 22:00 80 27 132/58 (82) 99 Mechanical Ventilator 50.00 10/19/21 21:52 80 107/59 10/19/21 21:26 80 26 107/59 10/19/21 21:00 79 26 106/54 (71) 97 Mechanical Ventilator 50.00 10/19/21 20:00 97 Mechanical Ventilator 50 10/19/21 20:00 81 26 110/58 (75) 97 Mechanical Ventilator 50.00 10/19/21 19:55 37.2 Mechanical Ventilator 50.00 10/19/21 19:00 80 26 100/56 (71) 97 Mechanical Ventilator 50.00 10/19/21 19:00 81 10/19/21 18:44 80 26 97 50 10/19/21 18:00 80 26 98/55 (69) 97 Mechanical Ventilator 50.00 10/19/21 17:20 84 125/58 10/19/21 17:00 81 26 108/55 (72) 96 Mechanical Ventilator 50.00 10/19/21 16:00 97 Mechanical Ventilator 50 10/19/21 16:00 84 11 125/58 (80) 95 Mechanical Ventilator 50.00 10/19/21 15:57 35.2 10/19/21 15:00 88 25 117/54 (75) 94 Mechanical Ventilator 50.00 10/19/21 14:13 88 27 93 50 10/19/21 14:00 95 7 127/53 (77) 90 Mechanical Ventilator 50.00 10/19/21 13:58 37.8 10/19/21 13:25 89 132/62 10/19/21 13:23 38.0 Mechanical Ventilator 50.00 10/19/21 13:19 38.0 10/19/21 13:00 89 10/19/21 13:00 89 18 131/64 (86) 97 Mechanical Ventilator 60.00 I & O 10/20/21 07:00 Intake Total 6093 ml Output Total 3250 ml Balance 2843 ml Height & Weight Height: 5'10.00" Weight: 182lbs. 0.0oz. 82.115897mg; 25.79 BMI Method: General Appearance: Chronically ill, Other (Sedated and intubated) HEENT: PERRL/EOMI, Normal ENT Inspection Neck: Full Range of Motion Respiratory: No Accessory Muscle Use, No Respiratory Distress, Decreased Breath Sounds Cardiovascular: Regular Rate, Rhythm Capillary Refill: Less Than 3 Seconds Peripheral Pulses: 1+ Dorsalis Pedis (R), 1+ Left Dors-Pedis (L); 2+ Radial Pulses (R), 2+ Radial Pulses (L) Gastrointestinal: non tender, soft Extremity: Normal Capillary Refill Neurologic/Psychiatric: Other (on vent/sedated) Skin: Normal Color Lymphatic: No Adenopathy Results Lab Laboratory Tests 10/18/21 17:00 10/19/21 04:15 10/20/21 03:27 Assessment/Plan Assessment/Plan (Tele-ICU Physician , Progress Note ) Available chart/ vitals / labs / Images reviewed Video assessment done using teleICU camera, rest of exam as per RN Discussed with RN , EXAM PER RN Events overnight : Afebrile I/O = positive Drips: Pressors: , hemodynamically stable Sedation gtt: ( RASS -2 ) follows commands with decrease sedation VENT SETTINGS and ABG reviewed Not candidate for SBT today REVIEWED Cardiovascular Stability / Sedation Score / FI02/PEEP / ABG / CXR Consultants: Hospital course: (10/08) 77 y/o female admitted for COVID+, transfer from other facility - , VT 20L 70% 10/09 changed to BIPAP 10/10 Bipap 100% _ precedex 0.4 10/11 - VT 35/80% prn bipap , precedex 0.4 - LEFT LE DVT 10/14 - VT 60L 75% , , BIPAP 60%- precedex 1.0, STARTED ZOSYN 10/15 - VT 40 100% , worsenign cxr on right , worsenign right sided pain 10/18 - card/pulm arrest - ROSC , PTX , chest tube on LEFT 10/18 - a fin RVR - cardioverted 10/19 - peep 18 60%, 10/21 - Thoravent on ADDITION to chest tube - both with leak, LEVO A/P AHRF / ARDS due to severe COVID19 ( CTA neg for pe 10/07 - in other facility , reportedly - did not see report personally - INTUBATED - card/pulm arrest -10/18 ROSC , PTX - follows commands as per bilingual case manager , CTH negative 10/19 [id number]-1/COVID-19 PNA ( Symptom onset unknown now DX unvaccinted --Dexamethasone - chanhged to 10 qd with wheexing 10/10 -Hypercoagulable state Full dose lovenox with DVT and PE Pneumomediastinum on ct 10/06- not seen on cxr f/up 10/18 - PTX , RIGHT , s/p CPR - chest tube in , large airleak - decrease peep alber -Thoravent on ADDITION to chest tube - both with leak a fib RVR - cardioverted - 10/18 - in sinus , s/p amio bolus , on PO amio now RLL PNA - started on Zosyn 10/14 - - resumed on 10/19 -> Left lower extremity DVT dx 10/12 - small PE on CT 10/19 - fill dose lovenox Hyperglycemia - ISS , close f/up on steroids Lines : periph ( Central Line Necessity Reviewed) Hurd: 10/08 OG: Nutrition: TF to start 10/19 Analgesia: Anxiety/ delirium = precedex VTE Prophylaxis: steve 80 bid Stress Ulcer Prophylaxis: po Plans in collaboration with bedside consultants and IM MDs. Discussed with RN to reach out if any questions or concerns A total of 40 minutes of critical care time was devoted to this patient today, required to treat and/or prevent further deterioration of critical care condi tion ( as above ) . JOHN CROW MD Oct 20, 2021 12:25
--- NOTE | 2021-10-20 12:32 | Progress Note - Surgery ---
Subjective Date Seen by a Provider: Oct 20, 2021 Time Seen by a Provider: 10:00 Subjective/Events-last exam Patient intubated and sedated. No family present. Chest x ray with larger right pneumothorax on chest x ray. Chest tube with continued air leak. Focused Exam Lactate Level 10/18/21 10:10: Lactic Acid Level 11.21*H 10/18/21 13:13: Lactic Acid Level 1.40 Objective Exam Vital Signs Date Time Temp Pulse Resp B/P (MAP) Pulse Ox O2 Delivery O2 Flow Rate FiO2 10/20/21 12:00 71 26 145/69 (94) 93 Mechanical Ventilator 50.00 10/20/21 11:45 71 26 149/71 (97) 94 Mechanical Ventilator 50.00 10/20/21 11:30 70 23 155/71 (99) 93 Mechanical Ventilator 50.00 10/20/21 11:16 36.5 10/20/21 11:15 69 23 165/77 (106) 93 Mechanical Ventilator 50.00 10/20/21 11:00 70 23 161/74 (103) 94 Mechanical Ventilator 50.00 10/20/21 10:45 73 17 158/73 (101) 94 Mechanical Ventilator 50.00 10/20/21 10:30 74 18 146/64 (91) 91 Mechanical Ventilator 50.00 10/20/21 10:25 77 26 90 50 10/20/21 10:15 80 13 126/55 (78) 94 Mechanical Ventilator 50.00 10/20/21 10:00 74 24 132/57 (82) 93 Mechanical Ventilator 50.00 10/20/21 09:45 77 18 109/57 (74) 89 Mechanical Ventilator 50.00 10/20/21 09:30 70 28 152/66 (94) 94 Mechanical Ventilator 50.00 10/20/21 09:15 71 26 143/63 (89) 94 Mechanical Ventilator 50.00 10/20/21 09:15 71 146/67 10/20/21 09:00 71 26 129/61 (83) 94 Mechanical Ventilator 50.00 10/20/21 08:45 71 26 125/58 (80) 94 Mechanical Ventilator 50.00 10/20/21 08:30 72 26 115/53 (73) 93 Mechanical Ventilator 50.00 10/20/21 08:15 98 Mechanical Ventilator 50 10/20/21 08:15 74 26 104/47 (66) 92 Mechanical Ventilator 50.00 10/20/21 08:00 84 26 129/58 (81) 91 Mechanical Ventilator 50.00 10/20/21 07:49 67 136/64 10/20/21 07:45 67 26 136/64 (88) 94 Mechanical Ventilator 50.00 10/20/21 07:30 67 26 136/65 (88) 94 Mechanical Ventilator 50.00 10/20/21 07:30 36.2 () Mechanical Ventilator 50.00 10/20/21 07:15 68 26 143/68 (93) 95 Mechanical Ventilator 50.00 10/20/21 07:00 69 26 137/66 (89) 94 Mechanical Ventilator 50.00 10/20/21 07:00 69 10/20/21 06:00 76 26 125/59 (81) 94 Mechanical Ventilator 50.00 10/20/21 05:58 76 26 92 50 10/20/21 05:00 73 19 129/59 (82) 96 Mechanical Ventilator 50.00 10/20/21 04:00 74 23 126/59 (81) 96 Mechanical Ventilator 50.00 10/20/21 03:45 96 Mechanical Ventilator 50 10/20/21 03:26 37.3 Mechanical Ventilator 50.00 10/20/21 03:00 75 15 147/66 (93) 96 Mechanical Ventilator 50.00 10/20/21 02:00 75 28 131/59 (83) 96 Mechanical Ventilator 50.00 10/20/21 01:59 75 28 96 50 10/20/21 01:00 81 10/20/21 01:00 75 23 139/62 (87) 95 Mechanical Ventilator 50.00 10/20/21 00:21 78 155/65 10/20/21 00:00 77 23 154/65 (94) 95 Mechanical Ventilator 50.00 10/19/21 23:55 95 Mechanical Ventilator 50 10/19/21 23:50 37.3 Mechanical Ventilator 50.00 10/19/21 23:00 80 23 123/60 (81) 95 Mechanical Ventilator 50.00 10/19/21 22:03 85 31 93 50 10/19/21 22:00 80 27 132/58 (82) 99 Mechanical Ventilator 50.00 10/19/21 21:52 80 107/59 10/19/21 21:26 80 26 107/59 10/19/21 21:00 79 26 106/54 (71) 97 Mechanical Ventilator 50.00 10/19/21 20:00 97 Mechanical Ventilator 50 10/19/21 20:00 81 26 110/58 (75) 97 Mechanical Ventilator 50.00 10/19/21 19:55 37.2 Mechanical Ventilator 50.00 10/19/21 19:00 80 26 100/56 (71) 97 Mechanical Ventilator 50.00 10/19/21 19:00 81 10/19/21 18:44 80 26 97 50 10/19/21 18:00 80 26 98/55 (69) 97 Mechanical Ventilator 50.00 10/19/21 17:20 84 125/58 10/19/21 17:00 81 26 108/55 (72) 96 Mechanical Ventilator 50.00 10/19/21 16:00 97 Mechanical Ventilator 50 10/19/21 16:00 84 11 125/58 (80) 95 Mechanical Ventilator 50.00 10/19/21 15:57 35.2 10/19/21 15:00 88 25 117/54 (75) 94 Mechanical Ventilator 50.00 10/19/21 14:13 88 27 93 50 10/19/21 14:00 95 7 127/53 (77) 90 Mechanical Ventilator 50.00 10/19/21 13:58 37.8 10/19/21 13:25 89 132/62 10/19/21 13:23 38.0 Mechanical Ventilator 50.00 10/19/21 13:19 38.0 10/19/21 13:00 89 10/19/21 13:00 89 18 131/64 (86) 97 Mechanical Ventilator 60.00 I & O 10/20/21 07:00 Intake Total 6093 ml Output Total 3250 ml Balance 2843 ml Capillary Refill : Less Than 3 Seconds General Appearance: Chronically ill, Other (Sedated and intubated) HEENT: PERRL/EOMI, Normal ENT Inspection Neck: Full Range of Motion Respiratory: No Accessory Muscle Use, No Respiratory Distress, Decreased Breath Sounds (right) Cardiovascular: Regular Rate, Rhythm, No JVD Peripheral Pulses: 1+ Dorsalis Pedis (R), 1+ Left Dors-Pedis (L); 2+ Radial Pulses (R), 2+ Radial Pulses (L) Gastrointestinal: non tender, soft Extremity: Normal Capillary Refill Neurologic/Psychiatric: No Alert, No Oriented x3; Other (on vent/sedated) Skin: Normal Color Lymphatic: No Adenopathy Results Lab Laboratory Tests 10/19/21 18:44: Glucometer 188H 10/19/21 23:54: Glucometer 156H 10/20/21 03:27: White Blood Count 19.4H, Red Blood Count 3.87L, Hemoglobin 11.2L, Hematocrit 36L , Mean Corpuscular Volume 92, Mean Corpuscular Hemoglobin 29, Mean Corpuscular Hemoglobin Concent 32, Red Cell Distribution Width 15.1H, Platelet Count 228, Mean Platelet Volume 10.6, Immature Granulocyte % (Auto) 2, Neutrophils (%) (Auto) 86H, Lymphocytes (%) (Auto) 4L, Monocytes (%) (Auto) 8, Eosinophils (%) (Auto) 0, Basophils (%) (Auto) 0, Neutrophils # (Auto) 16.6H, Lymphocytes # (Auto) 0.8L, Monocytes # (Auto) 1.6H, Eosinophils # (Auto) 0.0, Basophils # (Auto) 0.0, Immature Granulocyte # (Auto) 0.4H, Blood Gas Puncture Site RIGHT RADIAL, Blood Gas Patient Temperature 37.3, Arterial Blood pH 7.37, Arterial Blood Partial Pressure CO2 59H, Arterial Blood Partial Pressure O2 107H, Arterial Blood HCO3 33H, Arterial Blood Total CO2 34.8H, Arterial Blood Oxygen Saturation 98, Arterial Blood Base Excess 7.8H, To Test YES-POS, Blood Gas Ventilator Setting YES, Blood Gas Inspired Oxygen 100%, Sodium Level 139, Potassium Level 4.3, Chloride Level 103, Carbon Dioxide Level 29, Anion Gap 7, Blood Urea Nitrogen 22H, Creatinine 0.63, Estimat Glomerular Filtration Rate 133, BUN/Creatinine Ratio 35, Glucose Level 158H, Calcium Level 7.3L, Corrected Calcium 8.6, Phosphorus Level 1.8L, Magnesium Level 2.6H, Total Bilirubin 0.3, Aspartate Amino Transf (AST/SGOT) 36H, Alanine Aminotransferase (ALT/SGPT) 105H, Alkaline Phosphatase 55, Total Protein 4.6L, Albumin 2.4L 10/20/21 11:19: Glucometer 152H Microbiology 10/19/21 Gram Stain - Final, Resulted 10/19/21 Sputum Culture - Preliminary, Resulted No growth 10/14/21 Urine Culture - Final, Complete NO GROWTH 10/14/21 Blood Culture - Final, Complete No growth Assessment/Plan Assessment/Plan Assessment/Plan covid resp failure with cardiac arrest and right ptx s/p ct. large air leak. will continue to occur while on high PEEP wean peep as tolerates. cont CC management. prognosis poor will place second thoractostomy tube. Procedure right chest Thora vent placement Right chest was prepped draped in sterile fashion timeout is performed. 4 mL of 1% lidocaine was used anesthetize the skin and chest wall. This was applied in the midclavicular areas third intercostal space. Low blade scalpel used to make a small skin incision the thoracentesis catheter and trocar inserted through the incision to the chest wall until into the chest cavity and the catheter was advanced and the trocar was removed. The Thora vent valve demonstrated motion. It is secured in the usual fashion. Attached to atrium. Patient tolerated procedure well with any complications chest x-ray pending. MELVA VIRGEN DO Oct 20, 2021 12:32
[2021-10-20] MEDS: NOREPINEPHRINE 8 MG/250 ML 250 ML IV SCH (12:34)
[2021-10-20] MEDS: MIDAZOLAM DRIP PRE-MIX 100 ML IV SCH (17:16)
[2021-10-20] MEDS: AtorvaSTATin TABLET 10 MG TABLET PO SCH (20:24)
[2021-10-20] MEDS: traZODone 100 MG (DESYREL) TAB PO SCH (20:24)
[2021-10-20] MEDS: traZODone 50 MG (DESYREL) TAB PO SCH (20:24)
[2021-10-21] VITALS (63 sets, daily range): BP systolic 88–148; BP diastolic 41–73
[2021-10-21] MEDS: inSUlin ASPART (NovoLOG) 1 UNIT/0.01 ML (CHARGE PER UNIT) SQ SCH ×4 (00:40→18:32)
[2021-10-21] MEDS: RT-ALBUTEROL HFA 8.5 GM INHALER IH SCH ×4 (02:23→22:19)
[2021-10-21] MEDS: NOREPINEPHRINE 8 MG/250 ML 250 ML IV SCH ×2 (03:19→20:54)
[2021-10-21] MEDS: PIPERACILLIN SODIUM/TAZOBACTAM 4.5 GM in NS (IVPB) 100 ML IV SCH ×3 (03:51→20:25)
[2021-10-21 04:14] LABS: ABG BASE EXCESS 7.6 MMOL/L (-2.5-2.5); ABG OXYGEN SATURATION 96 % (94-100); ABG PCO2 51 MMHG (35-45); ABG PH 7.42 (7.37-7.43); ABG PO2 77 MMHG (79-93)
[2021-10-21 04:15] LABS: ALLENS TEST ART LINE; BASOPHILS % (AUTO) 0 % (0-10); EOSINOPHILS % (AUTO) 0 % (0-10); HEMATOCRIT 35 % (40-54); HEMOGLOBIN 10.7 g/dL (13.3-17.7); INSPIRED O2 100%; LYMPHOCYTES # (AUTO) 0.6 10^3/uL (1.0-4.0); LYMPHOCYTES % (AUTO) 5 % (12-44); MEAN CORPUSCULAR HEMOGLOBIN 29 pg (25-34); MEAN CORPUSCULAR HGB CONC 31 g/dL (32-36); MEAN CORPUSCULAR VOLUME 92 fL (80-99); MEAN PLATELET VOLUME 10.6 fL (9.0-12.2); MONOCYTES # (AUTO) 1.2 10^3/uL (0.0-1.0); MONOCYTES % (AUTO) 9 % (0-12); NEUTROPHILS # (AUTO) 12.2 10^3/uL (1.8-7.8); NEUTROPHILS % (AUTO) 86 % (42-75); PATIENT TEMP 36.3; PLATELET COUNT 238 10^3/uL (130-400); VENTILATOR YES; WHITE BLOOD COUNT 14.2 10^3/uL (4.3-11.0)
[2021-10-21 04:32] LABS: ALBUMIN 2.4 GM/DL (3.2-4.5); POTASSIUM 4.3 MMOL/L (3.6-5.0)
[2021-10-21 04:34] LABS: CALCIUM 7.4 MG/DL (8.5-10.1)
[2021-10-21 04:35] LABS: TOTAL PROTEIN 4.5 GM/DL (6.4-8.2)
[2021-10-21 04:36] LABS: BILIRUBIN,TOTAL 0.3 MG/DL (0.1-1.0)
[2021-10-21 04:38] LABS: CREATININE SERUM 0.62 MG/DL (0.60-1.30); PHOSPHORUS 2.1 MG/DL (2.3-4.7)
[2021-10-21] MEDS: POTASSIUM CL 10MEQ/50ML IVPB 50 ML IV SCH (04:39)
[2021-10-21] MEDS: KCL 20 MEQ TAB (K-DUR) PO SCH (04:39)
[2021-10-21 04:41] LABS: MAGNESIUM 2.6 MG/DL (1.6-2.4)
[2021-10-21] MEDS: MAGNESIUM 1 GM/100 ML IVPB 100 ML IV SCH (04:53)
[2021-10-21] MEDS: fentaNYL DRIP PRE-MIX 250 ML IV SCH ×3 (05:50→20:54)
[2021-10-21] MEDS: PROPOFOL DRIP (ICU) 100 ML IV SCH ×5 (05:52→20:33)
--- NOTE | 2021-10-21 07:00 | Progress Note - Hospitalist ---
Subjective HPI/CC On Admission Date Seen by Provider: Oct 21, 2021 Time Seen by Provider: 11:00 Admisison Planning May Need Admission (Planning): 08:00 (JAVIER ORDONEZ MD) Progress Progress Note #1: Time: 08:11 Progress Note 51-year-old male presents to the emergency department with his parents chief complaint of increasing shortness of breath, cough, body aches headache, nausea vomiting and diarrhea. Tells us initially that he was seen by [facility] 2 or 3 days ago, tested negative for Covid. Later his father contributes to the history stating that the patient was in fact told that he had pneumonia and was started on an antibiotic however the patient cannot recall what that was when asked. Patient states that he does not and has not ever smoked. He does not work around fumes or smoke. He states his cough is nonproductive. Has had profoundly severe shortness of breath with exertion over the last 24 hours. Takes medication for cholesterol and hypertension although did not take his medicine for hypertension this morning. Denies known sick contacts with Covid. Is not vaccinated. No history of blood clot in family or himself. No recent prolonged immobility or travel. No pain or swelling in his lower extremities. No recent black or bloody stool. Complains that his heart is "racing". Room air sats in the 70s on arrival to the emergency department. Still at 88 to 89% on 12 L per nasal cannula. Patient is noted to have fine rales at the bases bilaterally, moderate respiratory distress. No swelling in his lower extremities. No tenderness in the calves, negative Homans bilaterally. No rashes. Soft nontender abdomen. Dry oral mucosa. Sepsis work-up initiated with Covid and influenza testing. D-dimer pending. Chest x-ray pending. Patient is started on Vapotherm per respiratory therapy. Subjective/Events-last exam Patient still critical but stable Diflucan for yeast in endotracheal sputum for facility acquired pneumonia and Eliquis for anticoagulation for A. fib and thrombosis Vent settings are 375/26/5/40 percent ABG looks good Contemplate weaning tomorrow Thora vent is in anterior chest wall and right chest tube lateral Updated brother Focused Exam Lactate Level Objective Exam Vital Signs Vital Signs Date Time Temp Pulse Resp B/P (MAP) Pulse Ox O2 Delivery O2 Flow Rate FiO2 10/21/21 19:56 36.6 12/26/21 19:00 59 10/21/21 18:23 26 91 50 10/21/21 18:00 136/63 (87) Mechanical Ventilator 50.00 Capillary Refill : Less Than 3 Seconds General Appearance: Chronically ill, Other (Intubated and sedated) Respiratory: Lungs Clear, Normal Breath Sounds Cardiovascular: Regular Rate, Rhythm Results/Procedures Lab Laboratory Tests 10/21/21 03:55 Patient resulted labs reviewed. Assessment/Plan Assessment and Plan Assess & Plan/Chief Complaint Assessment: Acute hypoxic respiratory previously BiPAP dependent then status post acute respiratory failure 10/18/2021 status post emergently intubated and right-sided pneumothorax required chest tube placement by Dr. WOLFE with central line status post cardiac arrest x2 with ROSC after 20 minutes of compressions and 6 rounds of epinephrine status post new onset atrial fibrillation with rapid ventricular response status post amiodarone consulting cardiology status post cardioversion due to lack of resolution with IV antiarrhythmics currently off pressors Thora vent right anterior chest wall placed by Dr. Rodriguez on 10/21/2021 COVID-19 pneumonia DVT on anticoagulation Lung mass seen incidentally on CT scan Right-sided chest pain musculoskeletal type Hypertension Plan: BiPAP Vapotherm Anticoagulation 10/14/2021: Supportive care BiPAP 10/15/2021: Supportive care BiPAP Vapotherm Covid protocol meds High risk for intubation 10/16/2021: Complex case Continues to be high risk for intubation Pain control 10/17/2021: BiPAP Max Vapotherm Aggressive IV medication 10/18/2021: Status post cardiac arrest and emergently intubated and with right-sided chest tube and 3 pressors with A. fib and RVR 10/19/2021: Appreciate cardiology, [facility], Dr. WOLFE management yesterday 10/20/2021: Appreciate cardiology eICU for vent management Updated family 10/21/2021: Supportive care Vent management appreciated Osmin Diana Eliquis Critical Care Ventilator Management DUSTIN IBRAHIM DO Oct 21, 2021 07:00
--- NOTE | 2021-10-21 07:17 | Diagnostic Imaging Report ---
EXAMINATION: Chest 1 view HISTORY: Pneumothorax COMPARISON: 10/20/2021 FINDINGS: Heart size and pulmonary vasculature are normal. Stable patchy interstitial airspace opacities seen throughout both lungs. Likely small bilateral pleural effusions. Stable trace right pneumothorax. Right-sided chest tube is unchanged. Medical support lines and tubes otherwise unchanged. The osseous structures are intact. IMPRESSION: 1. Stable trace right pneumothorax. 2. Stable patchy interstitial and airspace opacities throughout both lungs. 3. Medical support lines and tubes are unchanged. Dictated by: Dictated on workstation # [id number]
[2021-10-21] MEDS: amLODIPine 5 MG (NORVASC) TAB PO SCH (08:03)
[2021-10-21] MEDS: ACYCLOVIR 400 MG TABLET (ZOVIRAX) PO SCH ×2 (08:03→17:16)
[2021-10-21] MEDS: FLUCONAZOLE 100 MG/50 ML IVPB IV SCH ×2 (08:03)
[2021-10-21] MEDS: PANTOPRAZOLE 40 MG (PROTONIX) VIAL IV SCH (08:03)
[2021-10-21] MEDS: lisINopril 20 MG (PRINIVIL) TABLET PO SCH (08:03)
[2021-10-21] MEDS: LIDOCAINE 4% (SALONPAS) PATCH TOP SCH (08:04)
[2021-10-21] MEDS: AMIODARONE 200 MG (CORDARONE) TAB PO SCH ×2 (08:04→20:25)
[2021-10-21] MEDS: DexMEDEtomidine 250 ML DRIP 250 ML IV SCH ×2 (08:58→20:54)
[2021-10-21] MEDS: NS IV 1000 ML 1,000 ML IV SCH ×2 (09:14→20:25)
--- NOTE | 2021-10-21 09:51 | Cardiology Progress Note ---
Progress Note-Cardiology Events since last exam Date Seen by Provider: Oct 21, 2021 Time Seen by Provider: 09:46 Events since last exam I am following him due to atrial fibrillation. He remains in the ICU intubated and sedated. Last evening he was able to be weaned off norepinephrine infusion. This morning he received his normal antihypertensive medication. I did not see the patient due to his Covid status. I did speak with his nurse of today. Certain portions of this document may have been dictated utilizing voice recognition technology. Inherent to this technology, typographical and grammatical errors may exist. As much as I am diligent to identify and correct these mistakes, some errors may remain in the document. Vitals Last set of Vitals Signs Vital Signs 10/21/21 10/21/21 07:28 09:00 Pulse 64 Resp 26 B/P (MAP) 119/66 (83) Pulse Ox 94 O2 Delivery Mechanical Ventilator O2 Flow Rate 40.00 FiO2 40 Labs Labs Laboratory Tests 10/21/21 03:55 Exam Vital Signs Vital Signs Date Time Temp Pulse Resp B/P (MAP) Pulse Ox O2 Delivery O2 Flow Rate FiO2 10/21/21 09:00 64 26 119/66 (83) 94 Mechanical Ventilator 40.00 10/21/21 07:45 36.0 10/21/21 07:28 40 Physical Exam I did not examine the patient due to his Covid status. Labs Laboratory Tests Test 10/20/21 11:19 10/20/21 17:19 10/21/21 00:29 10/21/21 03:55 Range/Units Glucometer 152 H 188 H 161 H 70-110 MG/DL White Blood Count 14.2 H 4.3-11.0 10^3/uL Red Blood Count 3.75 L 4.30-5.52 10^6/uL Hemoglobin 10.7 L 13.3-17.7 g/dL Hematocrit 35 L 40-54 % Mean Corpuscular Volume 92 80-99 fL Mean Corpuscular Hemoglobin 29 25-34 pg Mean Corpuscular Hemoglobin Concent 31 L 32-36 g/dL Red Cell Distribution Width 14.7 H 10.0-14.5 % Platelet Count 238 130-400 10^3/uL Mean Platelet Volume 10.6 9.0-12.2 fL Immature Granulocyte % (Auto) 1 % Neutrophils (%) (Auto) 86 H 42-75 % Lymphocytes (%) (Auto) 5 L 12-44 % Monocytes (%) (Auto) 9 0-12 % Eosinophils (%) (Auto) 0 0-10 % Basophils (%) (Auto) 0 0-10 % Neutrophils # (Auto) 12.2 H 1.8-7.8 10^3/uL Lymphocytes # (Auto) 0.6 L 1.0-4.0 10^3/uL Monocytes # (Auto) 1.2 H 0.0-1.0 10^3/uL Eosinophils # (Auto) 0.0 0.0-0.3 10^3/uL Basophils # (Auto) 0.0 0.0-0.1 10^3/uL Immature Granulocyte # (Auto) 0.2 H 0.0-0.1 10^3/uL Blood Gas Puncture Site RIGHT ART LINE Blood Gas Patient Temperature 36.3 Arterial Blood pH 7.42 7.37-7.43 Arterial Blood Partial Pressure CO2 51 H 35-45 MMHG Arterial Blood Partial Pressure O2 77 L 79-93 MMHG Arterial Blood HCO3 32 H 23-27 MMOL/L Arterial Blood Total CO2 34.0 H 21.0-31.0 MMOL/L Arterial Blood Oxygen Saturation 96 94-100 % Arterial Blood Base Excess 7.6 H -2.5-2.5 MMOL/L To Test ART LINE Blood Gas Ventilator Setting YES Blood Gas Inspired Oxygen 100% Sodium Level 140 135-145 MMOL/L Potassium Level 4.3 3.6-5.0 MMOL/L Chloride Level 104 98-107 MMOL/L Carbon Dioxide Level 29 21-32 MMOL/L Anion Gap 7 5-14 MMOL/L Blood Urea Nitrogen 21 H 7-18 MG/DL Creatinine 0.62 0.60-1.30 MG/DL Estimat Glomerular Filtration Rate 136 BUN/Creatinine Ratio 34 Glucose Level 152 H 70-105 MG/DL Calcium Level 7.4 L 8.5-10.1 MG/DL Corrected Calcium 8.7 8.5-10.1 MG/DL Phosphorus Level 2.1 L 2.3-4.7 MG/DL Magnesium Level 2.6 H 1.6-2.4 MG/DL Total Bilirubin 0.3 0.1-1.0 MG/DL Aspartate Amino Transf (AST/SGOT) 25 5-34 U/L Alanine Aminotransferase (ALT/SGPT) 94 H 0-55 U/L Alkaline Phosphatase 53 40-136 U/L Total Protein 4.5 L 6.4-8.2 GM/DL Albumin 2.4 L 3.2-4.5 GM/DL Diagnosis/Problems Diagnosis/Problems (1) Paroxysmal atrial fibrillation Assessment & Plan: This is a new finding on this patient. There is most most likely brought on by the resuscitative efforts during his cardiopulmonary arrest. Since his cardioversion, he remains in sinus rhythm and sinus tachycardia on oral amiodarone. This will need to be tapered down over the next month assuming he survives Covid infection. Since the atrial fibrillation was most likely brought on by his cardiopulmonary arrest and lasted less than 48 hours, he does not necessarily need anticoagulation for the atrial fibrillation. However, he is on enoxaparin due to left lower extremity deep venous thrombosis. (2) Cardiorespiratory arrest Assessment & Plan: Most likely brought on by the Covid pneumonia. He remains intubated but he is no longer in shock. (3) Primary hypertension Assessment & Plan: Is vasopressor medication is now weaned off. His blood pressures have been elevated. He is back on his oral antihypertensive medication. (4) Mixed hyperlipidemia Assessment & Plan: Continue statin medication. (5) Septic shock Assessment & Plan: Most likely related to Covid pneumonia. As above, this seems to have resolved for the time being. (6) Deep vein thrombosis of left lower extremity Assessment & Plan: Possibly related to Covid infection. He has been on enoxaparin. At this point, we can probably transition this over to oral medication. I will take the liberty of changing him to apixaban (7) Pneumonia due to COVID-19 virus Status: Acute Assessment & Plan: As above, this most likely led to the patient's cardiopulmonary arrest and now septic shock. KAIT MORENO JR, MD Oct 21, 2021 09:51
--- NOTE | 2021-10-21 11:23 | Tele-ICU Progress Note ---
Subjective Date Seen by a Provider: Oct 21, 2021 Time Seen by a Provider: 11:22 Sepsis Event Evaluation Height, Weight, BMI Height: 5'10.00" Weight: 182lbs. 0.0oz. [id number]; 25.79 BMI Method: Focused Exam Lactate Level 10/18/21 13:13: Lactic Acid Level 1.40 Exam Exam Patient acknowledged, consented, and participated in this virtual visit which was conducted using real time audio/video Vital Signs Date Time Temp Pulse Resp B/P (MAP) Pulse Ox O2 Delivery O2 Flow Rate FiO2 10/21/21 11:00 63 23 121/59 (79) 93 Mechanical Ventilator 40.00 10/21/21 10:45 74 26 90/55 (67) 93 Mechanical Ventilator 40.00 10/21/21 10:42 71 31 90 40 10/21/21 10:30 62 26 132/69 (90) 95 Mechanical Ventilator 40.00 10/21/21 10:15 62 26 116/63 (80) 95 Mechanical Ventilator 40.00 10/21/21 10:00 64 26 112/64 (80) 94 Mechanical Ventilator 40.00 10/21/21 09:45 62 26 127/67 (87) 95 Mechanical Ventilator 40.00 10/21/21 09:30 64 23 115/61 (79) 94 Mechanical Ventilator 40.00 10/21/21 09:15 61 23 129/66 (87) 94 Mechanical Ventilator 40.00 10/21/21 09:00 64 26 119/66 (83) 94 Mechanical Ventilator 40.00 10/21/21 08:58 68 111/62 10/21/21 08:45 64 26 136/63 (87) 91 Mechanical Ventilator 40.00 10/21/21 08:30 62 26 144/67 (92) 92 Mechanical Ventilator 40.00 10/21/21 08:15 61 26 148/73 (98) 91 Mechanical Ventilator 40.00 10/21/21 08:00 62 26 147/68 (94) 90 Mechanical Ventilator 40.00 10/21/21 07:47 95 Mechanical Ventilator 45 10/21/21 07:45 36.0 10/21/21 07:45 63 26 141/65 (90) 91 Mechanical Ventilator 40.00 10/21/21 07:30 62 26 143/67 (92) 92 Mechanical Ventilator 40.00 10/21/21 07:28 61 26 92 40 10/21/21 07:15 63 26 139/65 (89) 91 Mechanical Ventilator 40.00 10/21/21 07:00 64 26 131/62 (85) 90 Mechanical Ventilator 40.00 10/21/21 07:00 64 10/21/21 06:45 66 21 120/57 (78) 90 Mechanical Ventilator 40.00 10/21/21 06:44 Mechanical Ventilator 40.00 10/21/21 06:30 63 26 139/64 (89) 93 Mechanical Ventilator 45.00 10/21/21 06:15 64 26 135/63 (87) 92 Mechanical Ventilator 45.00 10/21/21 06:00 63 26 126/66 (86) 92 Mechanical Ventilator 45.00 10/21/21 05:54 63 141/67 10/21/21 05:52 63 141/67 10/21/21 05:00 63 26 141/65 (90) 94 Mechanical Ventilator 45.00 10/21/21 04:14 94 Mechanical Ventilator 45 10/21/21 04:07 36.3 10/21/21 04:00 62 23 135/66 (89) 94 Mechanical Ventilator 45.00 10/21/21 03:00 64 23 132/64 (86) 95 Mechanical Ventilator 45.00 10/21/21 02:23 65 26 93 45 10/21/21 02:00 62 26 141/71 (94) 95 Mechanical Ventilator 45.00 10/21/21 01:00 62 26 139/69 (92) 95 Mechanical Ventilator 45.00 10/21/21 01:00 61 10/21/21 00:40 36.4 Mechanical Ventilator 45.00 10/21/21 00:00 96 Mechanical Ventilator 50 10/21/21 00:00 61 26 142/72 (95) 95 Mechanical Ventilator 50.00 10/20/21 23:00 61 26 135/69 (91) 96 Mechanical Ventilator 50.00 10/20/21 22:00 65 23 128/64 (85) 96 Mechanical Ventilator 50.00 10/20/21 21:54 64 138/68 10/20/21 21:27 Mechanical Ventilator 50.00 10/20/21 21:14 75 26 90 50 10/20/21 21:00 66 26 131/63 (85) 93 Mechanical Ventilator 40.00 10/20/21 20:43 Mechanical Ventilator 40.00 10/20/21 20:41 66 136/68 10/20/21 20:23 65 130/66 10/20/21 20:00 96 Mechanical Ventilator 45 10/20/21 20:00 66 17 125/64 (84) 96 Mechanical Ventilator 45.00 10/20/21 19:40 36.2 10/20/21 19:00 66 26 158/77 (104) 95 Mechanical Ventilator 45.00 10/20/21 19:00 Mechanical Ventilator 45.00 10/20/21 19:00 70 10/20/21 18:19 65 26 95 45 10/20/21 18:00 66 26 154/76 (102) 95 Mechanical Ventilator 50.00 10/20/21 17:45 66 26 153/76 (101) 96 Mechanical Ventilator 50.00 10/20/21 17:30 66 27 153/75 (101) 95 Mechanical Ventilator 50.00 10/20/21 17:16 66 21 159/77 10/20/21 17:15 67 26 149/75 (99) 95 Mechanical Ventilator 50.00 10/20/21 17:00 66 21 159/77 (104) 95 Mechanical Ventilator 50.00 10/20/21 16:45 66 26 154/76 (102) 94 Mechanical Ventilator 50.00 10/20/21 16:30 68 13 150/74 (99) 94 Mechanical Ventilator 50.00 10/20/21 16:18 97 Mechanical Ventilator 50 10/20/21 16:15 68 26 156/76 (102) 96 Mechanical Ventilator 50.00 10/20/21 16:00 69 26 155/76 (102) 96 Mechanical Ventilator 50.00 10/20/21 15:45 68 27 155/76 (102) 96 Mechanical Ventilator 50.00 10/20/21 15:45 35.7 10/20/21 15:30 68 26 155/76 (102) 95 Mechanical Ventilator 50.00 10/20/21 15:15 70 26 157/76 (103) 96 Mechanical Ventilator 50.00 10/20/21 15:00 70 20 157/76 (103) 95 Mechanical Ventilator 50.00 10/20/21 14:45 70 26 151/73 (99) 95 Mechanical Ventilator 50.00 10/20/21 14:30 70 26 151/74 (99) 95 Mechanical Ventilator 50.00 10/20/21 14:15 71 26 152/74 (100) 95 Mechanical Ventilator 50.00 10/20/21 14:04 80 26 97 45 10/20/21 14:00 70 26 152/75 (100) 97 Mechanical Ventilator 50.00 10/20/21 13:45 70 26 149/72 (97) 96 Mechanical Ventilator 50.00 10/20/21 13:30 70 26 147/72 (97) 96 Mechanical Ventilator 50.00 10/20/21 13:22 71 147/72 10/20/21 13:22 71 147/72 10/20/21 13:15 70 24 149/73 (98) 96 Mechanical Ventilator 50.00 10/20/21 13:00 71 23 147/72 (97) 95 Mechanical Ventilator 50.00 10/20/21 12:49 72 10/20/21 12:45 71 26 146/71 (96) 95 Mechanical Ventilator 50.00 10/20/21 12:34 71 145/69 10/20/21 12:30 73 21 148/71 (96) 95 Mechanical Ventilator 50.00 10/20/21 12:15 72 23 143/69 (93) 94 Mechanical Ventilator 50.00 10/20/21 12:15 97 Mechanical Ventilator 50 10/20/21 12:00 71 26 145/69 (94) 93 Mechanical Ventilator 50.00 10/20/21 11:45 71 26 149/71 (97) 94 Mechanical Ventilator 50.00 10/20/21 11:30 70 23 155/71 (99) 93 Mechanical Ventilator 50.00 I & O 10/21/21 07:00 Intake Total 3270 ml Output Total 2545 ml Balance 725 ml Height & Weight Height: 5'10.00" Weight: 182lbs. 0.0oz. 82.953964gy; 25.79 BMI Method: General Appearance: No Apparent Distress, WD/WN, Other (Sedated and intubated) HEENT: PERRL/EOMI, Normal ENT Inspection Neck: Full Range of Motion Respiratory: Lungs Clear, Normal Breath Sounds Cardiovascular: Regular Rate, Rhythm Capillary Refill: Less Than 3 Seconds Peripheral Pulses: 1+ Dorsalis Pedis (R), 1+ Left Dors-Pedis (L); 2+ Radial Pulses (R), 2+ Radial Pulses (L) Gastrointestinal: non tender, soft Extremity: Normal Capillary Refill Neurologic/Psychiatric: No Alert, No Oriented x3; Other (on vent/sedated) Skin: Normal Color Lymphatic: No Adenopathy Results Lab Laboratory Tests 10/20/21 03:27 10/21/21 03:55 Assessment/Plan Assessment/Plan (Tele-ICU Physician , Progress Note ) Available chart/ vitals / labs / Images reviewed Video assessment done using teleICU camera, rest of exam as per RN Discussed with RN , EXAM PER RN Events overnight : Afebrile I/O = positive Drips: Pressors: , hemodynamically stable Sedation gtt: ( RASS -2 ) follows commands with decrease sedation VENT SETTINGS and ABG reviewed Not candidate for SBT today REVIEWED Cardiovascular Stability / Sedation Score / FI02/PEEP / ABG / CXR Consultants: Hospital course: (10/08) 77 y/o female admitted for COVID+, transfer from other facility - , VT 20L 70% 10/09 changed to BIPAP 10/10 Bipap 100% _ precedex 0.4 10/11 - VT 35/80% prn bipap , precedex 0.4 - LEFT LE DVT 10/14 - VT 60L 75% , , BIPAP 60%- precedex 1.0, STARTED ZOSYN 10/15 - VT 40 100% , worsenign cxr on right , worsenign right sided pain 10/18 - card/pulm arrest - ROSC , PTX , chest tube on LEFT 10/18 - a fin RVR - cardioverted 10/19 - peep 18 60%, 10/20 - Thoravent on ADDITION to chest tube - both with leak, LEVO 10/21 - fio2 40% peep 5, follows commands A/P AHRF / ARDS due to severe COVID19 ( CTA neg for pe 10/07 - in other facility , reportedly - did not see report personally - INTUBATED - 10/18 - 45 % fio2 peep 8 - WILL DECREASE SEDATUIN AND ASSESS FOR WEANING TRAIL ( was on precedex prior to intubation ) card/pulm arrest -10/18 ROSC , PTX - CTH negative 10/19 follows commands as per social science teacher [id number]-Njekdfqjqeg-2/COVID-19 PNA ( Symptom onset unknown now DX unvaccinted --Dexamethasone - chanhged to 10 qd with wheexzng 10/10- 10/20 - OFF STEROIDS NOW -Hypercoagulable state Full dose lovenox with DVT and PE Pneumomediastinum on ct 10/06- not seen on cxr f/up 10/18 - PTX , RIGHT - chest tube in , large airleak -Thoravent on ADDITION to chest tube 10/20 - both with leak -- decrease peep alber- a fib RVR - cardioverted - 10/18 - in sinus , s/p amio bolus , on PO amio now RLL PNA - started on Zosyn 10/14 - >24 - resumed on 10/19 -> Left lower extremity DVT dx 10/12 - small PE on CT 10/19 - fill dose lovenox - >eliquis 10/21 Hyperglycemia - ISS , close f/up on steroids Lines : periph ( Central Line Necessity Reviewed) Hurd: 10/08 OG: Nutrition: TF to start 10/19 Analgesia: Anxiety/ delirium = precedex VTE Prophylaxis: steve 80 bid- > eliquis Stress Ulcer Prophylaxis: po Plans in collaboration with bedside consultants and IM MDs. Discussed with RN to reach out if any questions or concerns A total of 40 minutes of critical care time was devoted to this patient today, required to treat and/or prevent further deterioration of critical care condition ( as above ) . JOHN CROW MD Oct 21, 2021 11:23
[2021-10-21] MEDS: MIDAZOLAM DRIP PRE-MIX 100 ML IV SCH (12:19)
--- NOTE | 2021-10-21 13:23 | Progress Note - Surgery ---
Subjective Date Seen by a Provider: Oct 21, 2021 Time Seen by a Provider: 13:19 Subjective/Events-last exam Remains intubated and sedated. On pressers. Right chest pneumothorax trace by x ray. Still with airleak. Objective Exam Vital Signs Date Time Temp Pulse Resp B/P (MAP) Pulse Ox O2 Delivery O2 Flow Rate FiO2 10/21/21 12:54 59 10/21/21 12:19 63 26 120/55 10/21/21 12:19 63 126/64 10/21/21 12:19 63 126/64 10/21/21 12:00 63 26 126/64 (84) 93 Mechanical Ventilator 40.00 10/21/21 12:00 37.1 10/21/21 11:45 63 26 126/65 (85) 93 Mechanical Ventilator 40.00 10/21/21 11:30 61 26 134/66 (88) 93 Mechanical Ventilator 40.00 10/21/21 11:15 61 26 136/65 (88) 93 Mechanical Ventilator 40.00 10/21/21 11:00 63 23 121/59 (79) 93 Mechanical Ventilator 40.00 10/21/21 10:45 74 26 90/55 (67) 93 Mechanical Ventilator 40.00 10/21/21 10:42 71 31 90 40 10/21/21 10:30 62 26 132/69 (90) 95 Mechanical Ventilator 40.00 10/21/21 10:15 62 26 116/63 (80) 95 Mechanical Ventilator 40.00 10/21/21 10:00 64 26 112/64 (80) 94 Mechanical Ventilator 40.00 10/21/21 09:45 62 26 127/67 (87) 95 Mechanical Ventilator 40.00 10/21/21 09:30 64 23 115/61 (79) 94 Mechanical Ventilator 40.00 10/21/21 09:15 61 23 129/66 (87) 94 Mechanical Ventilator 40.00 10/21/21 09:00 64 26 119/66 (83) 94 Mechanical Ventilator 40.00 10/21/21 08:58 68 111/62 10/21/21 08:45 64 26 136/63 (87) 91 Mechanical Ventilator 40.00 10/21/21 08:30 62 26 144/67 (92) 92 Mechanical Ventilator 40.00 10/21/21 08:15 61 26 148/73 (98) 91 Mechanical Ventilator 40.00 10/21/21 08:00 62 26 147/68 (94) 90 Mechanical Ventilator 40.00 10/21/21 07:47 95 Mechanical Ventilator 45 10/21/21 07:45 36.0 10/21/21 07:45 63 26 141/65 (90) 91 Mechanical Ventilator 40.00 10/21/21 07:30 62 26 143/67 (92) 92 Mechanical Ventilator 40.00 10/21/21 07:28 61 26 92 40 10/21/21 07:15 63 26 139/65 (89) 91 Mechanical Ventilator 40.00 10/21/21 07:00 64 26 131/62 (85) 90 Mechanical Ventilator 40.00 10/21/21 07:00 64 10/21/21 06:45 66 21 120/57 (78) 90 Mechanical Ventilator 40.00 10/21/21 06:44 Mechanical Ventilator 40.00 10/21/21 06:30 63 26 139/64 (89) 93 Mechanical Ventilator 45.00 10/21/21 06:15 64 26 135/63 (87) 92 Mechanical Ventilator 45.00 10/21/21 06:00 63 26 126/66 (86) 92 Mechanical Ventilator 45.00 10/21/21 05:54 63 141/67 10/21/21 05:52 63 141/67 10/21/21 05:00 63 26 141/65 (90) 94 Mechanical Ventilator 45.00 10/21/21 04:14 94 Mechanical Ventilator 45 10/21/21 04:07 36.3 10/21/21 04:00 62 23 135/66 (89) 94 Mechanical Ventilator 45.00 10/21/21 03:00 64 23 132/64 (86) 95 Mechanical Ventilator 45.00 10/21/21 02:23 65 26 93 45 10/21/21 02:00 62 26 141/71 (94) 95 Mechanical Ventilator 45.00 10/21/21 01:00 62 26 139/69 (92) 95 Mechanical Ventilator 45.00 10/21/21 01:00 61 10/21/21 00:40 36.4 Mechanical Ventilator 45.00 10/21/21 00:00 96 Mechanical Ventilator 50 10/21/21 00:00 61 26 142/72 (95) 95 Mechanical Ventilator 50.00 10/20/21 23:00 61 26 135/69 (91) 96 Mechanical Ventilator 50.00 10/20/21 22:00 65 23 128/64 (85) 96 Mechanical Ventilator 50.00 10/20/21 21:54 64 138/68 10/20/21 21:27 Mechanical Ventilator 50.00 10/20/21 21:14 75 26 90 50 10/20/21 21:00 66 26 131/63 (85) 93 Mechanical Ventilator 40.00 10/20/21 20:43 Mechanical Ventilator 40.00 10/20/21 20:41 66 136/68 10/20/21 20:23 65 130/66 10/20/21 20:00 96 Mechanical Ventilator 45 10/20/21 20:00 66 17 125/64 (84) 96 Mechanical Ventilator 45.00 10/20/21 19:40 36.2 10/20/21 19:00 66 26 158/77 (104) 95 Mechanical Ventilator 45.00 10/20/21 19:00 Mechanical Ventilator 45.00 10/20/21 19:00 70 10/20/21 18:19 65 26 95 45 10/20/21 18:00 66 26 154/76 (102) 95 Mechanical Ventilator 50.00 10/20/21 17:45 66 26 153/76 (101) 96 Mechanical Ventilator 50.00 10/20/21 17:30 66 27 153/75 (101) 95 Mechanical Ventilator 50.00 10/20/21 17:16 66 21 159/77 10/20/21 17:15 67 26 149/75 (99) 95 Mechanical Ventilator 50.00 10/20/21 17:00 66 21 159/77 (104) 95 Mechanical Ventilator 50.00 10/20/21 16:45 66 26 154/76 (102) 94 Mechanical Ventilator 50.00 10/20/21 16:30 68 13 150/74 (99) 94 Mechanical Ventilator 50.00 10/20/21 16:18 97 Mechanical Ventilator 50 10/20/21 16:15 68 26 156/76 (102) 96 Mechanical Ventilator 50.00 10/20/21 16:00 69 26 155/76 (102) 96 Mechanical Ventilator 50.00 10/20/21 15:45 68 27 155/76 (102) 96 Mechanical Ventilator 50.00 10/20/21 15:45 35.7 10/20/21 15:30 68 26 155/76 (102) 95 Mechanical Ventilator 50.00 10/20/21 15:15 70 26 157/76 (103) 96 Mechanical Ventilator 50.00 10/20/21 15:00 70 20 157/76 (103) 95 Mechanical Ventilator 50.00 10/20/21 14:45 70 26 151/73 (99) 95 Mechanical Ventilator 50.00 10/20/21 14:30 70 26 151/74 (99) 95 Mechanical Ventilator 50.00 10/20/21 14:15 71 26 152/74 (100) 95 Mechanical Ventilator 50.00 10/20/21 14:04 80 26 97 45 10/20/21 14:00 70 26 152/75 (100) 97 Mechanical Ventilator 50.00 10/20/21 13:45 70 26 149/72 (97) 96 Mechanical Ventilator 50.00 10/20/21 13:30 70 26 147/72 (97) 96 Mechanical Ventilator 50.00 10/20/21 13:22 71 147/72 10/20/21 13:22 71 147/72 I & O 10/21/21 07:00 Intake Total 3270 ml Output Total 2545 ml Balance 725 ml Capillary Refill : Less Than 3 Seconds General Appearance: No Apparent Distress, WD/WN, Other (Sedated and intubated) HEENT: PERRL/EOMI, Normal ENT Inspection Neck: Full Range of Motion Respiratory: No Respiratory Distress, Other (equal chest rise) Cardiovascular: Regular Rate, Rhythm, No JVD Peripheral Pulses: 1+ Dorsalis Pedis (R), 1+ Left Dors-Pedis (L); 2+ Radial Pulses (R), 2+ Radial Pulses (L) Gastrointestinal: non tender, soft Extremity: Normal Capillary Refill Neurologic/Psychiatric: No Alert, No Oriented x3; Other (on vent/sedated) Skin: Normal Color Lymphatic: No Adenopathy Results Lab Laboratory Tests 10/20/21 17:19: Glucometer 188H 10/21/21 00:29: Glucometer 161H 10/21/21 03:55: White Blood Count 14.2H, Red Blood Count 3.75L, Hemoglobin 10.7L, Hematocrit 35L , Mean Corpuscular Volume 92, Mean Corpuscular Hemoglobin 29, Mean Corpuscular Hemoglobin Concent 31L, Red Cell Distribution Width 14.7H, Platelet Count 238, Mean Platelet Volume 10.6, Immature Granulocyte % (Auto) 1, Neutrophils (%) (Auto) 86H, Lymphocytes (%) (Auto) 5L, Monocytes (%) (Auto) 9, Eosinophils (%) (Auto) 0, Basophils (%) (Auto) 0, Neutrophils # (Auto) 12.2H, Lymphocytes # (Auto) 0.6L, Monocytes # (Auto) 1.2H, Eosinophils # (Auto) 0.0, Basophils # (Auto) 0.0, Immature Granulocyte # (Auto) 0.2H, Blood Gas Puncture Site RIGHT ART LINE, Blood Gas Patient Temperature 36.3, Arterial Blood pH 7.42, Arterial Blood Partial Pressure CO2 51H, Arterial Blood Partial Pressure O2 77L, Arterial Blood HCO3 32H, Arterial Blood Total CO2 34.0H, Arterial Blood Oxygen Saturation 96, Arterial Blood Base Excess 7.6H, To Test ART LINE, Blood Gas Ventilator Setting YES, Blood Gas Inspired Oxygen 100%, Sodium Level 140, Potassium Level 4.3, Chloride Level 104, Carbon Dioxide Level 29, Anion Gap 7, Blood Urea Nitrogen 21H, Creatinine 0.62, Estimat Glomerular Filtration Rate 136, BUN/Creatinine Ratio 34, Glucose Level 152H, Calcium Level 7.4L, Corrected Ca lcium 8.7, Phosphorus Level 2.1L, Magnesium Level 2.6H, Total Bilirubin 0.3, Aspartate Amino Transf (AST/SGOT) 25, Alanine Aminotransferase (ALT/SGPT) 94H, Alkaline Phosphatase 53, Total Protein 4.5L, Albumin 2.4L 10/21/21 11:53: Glucometer 143H Microbiology 10/19/21 Gram Stain - Final, Resulted 10/19/21 Sputum Culture - Preliminary, Resulted No growth 10/14/21 Urine Culture - Final, Complete NO GROWTH 10/14/21 Blood Culture - Final, Complete No growth Assessment/Plan Assessment/Plan Assessment/Plan covid resp failure with cardiac arrest and right ptx s/p ct. air leak. will continue to occur while on high PEEP wean peep as tolerates. cont CC management. prognosis poor thoravent placed for second thoractostomy tube yesterday. MELVA VIRGEN DO Oct 21, 2021 13:23
[2021-10-21] MEDS: APIXABAN 5 MG (ELIQUIS) TABLET PO SCH (20:25)
[2021-10-21] MEDS: traZODone 100 MG (DESYREL) TAB PO SCH (20:25)
[2021-10-21] MEDS: traZODone 50 MG (DESYREL) TAB PO SCH (20:25)
[2021-10-21] MEDS: AtorvaSTATin TABLET 10 MG TABLET PO SCH (20:26)
[2021-10-22] VITALS (32 sets, daily range): BP systolic 91–162; BP diastolic 51–85
[2021-10-22] MEDS: RT-ALBUTEROL HFA 8.5 GM INHALER IH SCH ×4 (02:31→19:02)
[2021-10-22] MEDS: inSUlin ASPART (NovoLOG) 1 UNIT/0.01 ML (CHARGE PER UNIT) SQ SCH ×4 (02:47→18:06)
[2021-10-22] MEDS: PIPERACILLIN SODIUM/TAZOBACTAM 4.5 GM in NS (IVPB) 100 ML IV SCH ×3 (03:23→20:46)
[2021-10-22] MEDS: PROPOFOL DRIP (ICU) 100 ML IV SCH ×5 (03:23→21:19)
[2021-10-22 03:26] LABS: ABG BASE EXCESS 7.2 MMOL/L (-2.5-2.5); ABG OXYGEN SATURATION 95 % (94-100); ABG PCO2 46 MMHG (35-45); ABG PH 7.45 (7.37-7.43); ABG PO2 67 MMHG (79-93); ABG TCO2 33.1 MMOL/L (21.0-31.0); BASOPHILS % (AUTO) 0 % (0-10); EOSINOPHILS % (AUTO) 0 % (0-10); HEMATOCRIT 34 % (40-54); HEMOGLOBIN 10.7 g/dL (13.3-17.7); LYMPHOCYTES # (AUTO) 1.1 10^3/uL (1.0-4.0); LYMPHOCYTES % (AUTO) 9 % (12-44); MEAN CORPUSCULAR HEMOGLOBIN 29 pg (25-34); MEAN CORPUSCULAR HGB CONC 32 g/dL (32-36); MEAN CORPUSCULAR VOLUME 92 fL (80-99); MEAN PLATELET VOLUME 10.5 fL (9.0-12.2); MONOCYTES % (AUTO) 8 % (0-12); NEUTROPHILS # (AUTO) 9.9 10^3/uL (1.8-7.8); NEUTROPHILS % (AUTO) 82 % (42-75); PLATELET COUNT 217 10^3/uL (130-400); WHITE BLOOD COUNT 12.1 10^3/uL (4.3-11.0)
[2021-10-22 03:28] LABS: ALLENS TEST ART LINE; INSPIRED O2 60%; PATIENT TEMP 35.8; VENTILATOR YES
[2021-10-22 03:41] LABS: ALBUMIN 2.3 GM/DL (3.2-4.5); POTASSIUM 3.8 MMOL/L (3.6-5.0)
[2021-10-22 03:42] LABS: CALCIUM 7.4 MG/DL (8.5-10.1)
[2021-10-22 03:43] LABS: TOTAL PROTEIN 4.3 GM/DL (6.4-8.2)
[2021-10-22 03:45] LABS: BILIRUBIN,TOTAL 0.3 MG/DL (0.1-1.0)
[2021-10-22 03:46] LABS: PHOSPHORUS 1.8 MG/DL (2.3-4.7)
[2021-10-22 03:47] LABS: CREATININE SERUM 0.53 MG/DL (0.60-1.30)
[2021-10-22 03:49] LABS: MAGNESIUM 2.4 MG/DL (1.6-2.4)
[2021-10-22] MEDS: POTASSIUM CL 10MEQ/50ML IVPB 50 ML IV SCH (04:49)
[2021-10-22] MEDS: MAGNESIUM 1 GM/100 ML IVPB 100 ML IV SCH (04:49)
[2021-10-22] MEDS: KCL 20 MEQ TAB (K-DUR) PO SCH (04:49)
[2021-10-22] MEDS: fentaNYL DRIP PRE-MIX 250 ML IV SCH ×3 (05:59→19:48)
--- NOTE | 2021-10-22 06:45 | Diagnostic Imaging Report ---
EXAMINATION: Chest 1 view HISTORY: Followup pneumothorax. COMPARISON: 10/21/2021. FINDINGS: Stable configuration of a right-sided chest tube with the tip overlying the right apex. The additional support devices are stable in configuration. No large pneumothorax is seen on the right. No evidence of mediastinal shift. No pleural effusion is seen. There is slight improved aeration in the right lung base with continued patchy and consolidative opacities throughout the right lung and in the left mid and lower lung. Stable cardiac silhouette. IMPRESSION: 1. Stable configuration of the right-sided chest tube with no significant right-sided pneumothorax. 2. Slight improved aeration in the right lung base with continued patchy and consolidative opacities throughout the right lung and in the left mid and lower lung. Dictated by: Dictated on workstation # [id number]
[2021-10-22] MEDS ORDERED: FUROSEMIDE 40 MG/4 ML INJ (LASIX) IVP ONE (08:30)
[2021-10-22] MEDS: PANTOPRAZOLE 40 MG (PROTONIX) VIAL IV SCH (08:37)
[2021-10-22] MEDS: APIXABAN 5 MG (ELIQUIS) TABLET PO SCH ×2 (08:37→20:46)
[2021-10-22] MEDS: amLODIPine 5 MG (NORVASC) TAB PO SCH (08:37)
[2021-10-22] MEDS: lisINopril 20 MG (PRINIVIL) TABLET PO SCH (08:37)
[2021-10-22] MEDS: AMIODARONE 200 MG (CORDARONE) TAB PO SCH ×2 (08:37→20:47)
[2021-10-22] MEDS: LIDOCAINE 4% (SALONPAS) PATCH TOP SCH (08:37)
[2021-10-22] MEDS: ACYCLOVIR 400 MG TABLET (ZOVIRAX) PO SCH ×2 (08:39→17:05)
[2021-10-22] MEDS: NOREPINEPHRINE 8 MG/250 ML 250 ML IV SCH ×2 (09:15→21:20)
--- NOTE | 2021-10-22 10:32 | Progress Note - Hospitalist ---
Subjective HPI/CC On Admission Date Seen by Provider: Oct 22, 2021 Time Seen by Provider: 11:00 Admisison Planning May Need Admission (Planning): 08:00 (JAVIER ORDONEZ MD) Progress Progress Note #1: Time: 08:11 Progress Note 51-year-old male presents to the emergency department with his parents chief complaint of increasing shortness of breath, cough, body aches headache, nausea vomiting and diarrhea. Tells us initially that he was seen by [facility] 2 or 3 days ago, tested negative for Covid. Later his father contributes to the history stating that the patient was in fact told that he had pneumonia and was started on an antibiotic however the patient cannot recall what that was when asked. Patient states that he does not and has not ever smoked. He does not work around fumes or smoke. He states his cough is nonproductive. Has had profoundly severe shortness of breath with exertion over the last 24 hours. Takes medication for cholesterol and hypertension although did not take his medicine for hypertension this morning. Denies known sick contacts with Covid. Is not vaccinated. No history of blood clot in family or himself. No recent prolonged immobility or travel. No pain or swelling in his lower extremities. No recent black or bloody stool. Complains that his heart is "racing". Room a ir sats in the 70s on arrival to the emergency department. Still at 88 to 89% on 12 L per nasal cannula. Patient is noted to have fine rales at the bases bilaterally, moderate respiratory distress. No swelling in his lower extremities. No tenderness in the calves, negative Homans bilaterally. No rashes. Soft nontender abdomen. Dry oral mucosa. Sepsis work-up initiated with Covid and influenza testing. D-dimer pending. Chest x-ray pending. Patient is started on Vapotherm per respiratory therapy. 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 Assessment/Plan Assessment and Plan Assess & Plan/Chief Complaint Assessment: Acute hypoxic respiratory previously BiPAP dependent then status post acute respiratory failure 10/18/2021 status post emergently intubated and right-sided pneumothorax required chest tube placement by Dr. WOLFE with central line status post cardiac arrest x2 with ROSC after 20 minutes of compressions and 6 rounds of epinephrine status post new onset atrial fibrillation with rapid ventricular response status post amiodarone consulting cardiology status post cardioversion due to lack of resolution with IV antiarrhythmics currently off pressors Thora vent right anterior chest wall placed by Dr. Rodriguez on 10/21/2021 COVID-19 pneumonia DVT on anticoagulation Lung mass seen incidentally on CT scan Right-sided chest pain musculoskeletal type Hypertension Plan: BiPAP Vapotherm Anticoagulation 10/14/2021: Supportive care BiPAP 10/15/2021: Supportive care BiPAP Vapotherm Covid protocol meds High risk for intubation 10/16/2021: Complex case Continues to be high risk for intubation Pain control 10/17/2021: BiPAP Max Vapotherm Aggressive IV medication 10/18/2021: Status post cardiac arrest and emergently intubated and with right-sided chest tube and 3 pressors with A. fib and RVR 10/19/2021: Appreciate cardiology, eICU, Dr. WOLFE management yesterday 10/20/2021: Appreciate cardiology eICU for vent management Updated family 10/21/2021: Supportive care Vent management appreciated Osmin Diana Eliquis 10/22/2021: Supportive care Reviewed all meds Still critical illness Critical Care Ventilator Management DUSTIN IBRAHIM DO Oct 22, 2021 10:32
--- NOTE | 2021-10-22 11:03 | Tele-ICU Progress Note ---
Subjective Date Seen by a Provider: Oct 22, 2021 Time Seen by a Provider: 10:00 Subjective/Events-last exam This virtual visit was conducted using real time audio/video. Thank you for asking us to see this patient for respiratory insufficiency due to Covid pna. Also code blue/R PTX 10/18/21. Now has R chest tube. Recent events: Levophed restarted. PE: VSS. O2 sat 90% on 60%/+8. HEENT: No obvious masses, adenopathy or JVD. Chest: clear to auscultation. Diminished. CV: RRR S1 S2 No murmur or added sounds. Abd: Non-tender. Bowel sounds Y. : Unremarkable. Hurd Y. CAT DOG OR OTHER PET GROOMER/psychiatric: Sedated. Grossly intact. No obvious focal findings. Extremities: No edema. Capillary refill < 3 seconds. Skin: unremarkable. Results: Decreased Hb 10.7, Alb 2.3. B.45/46/67. CXR: B infilts., R chest tube. Available chart/ vitals / labs / images reviewed. Video assessment done using teleICU camera, rest of exam as per RN. A/P: Respiratory insufficiency: Continue present management with vent., albuterol, sedatives. Monitor for increasing oxygenation needs. Critical Care: critically ill patient. Cont. Levo., Difluc., Zosyn, eliquis, lisinopril, Norvasc, PPI, ststin, amiodarone, SSI.. Given Lasix 40 mg IVP. Discussed with SORAYA Guevara. Asked RN to reach out to eICU if any questions or concerns later. Time spent with patient/coordination of care with other health professionals (mins): 20 Sepsis Event Evaluation Height, Weight, BMI Height: 5'10.00" Weight: 182lbs. 0.0oz. [id number]; 25.79 BMI Method: Exam Exam Patient acknowledged, consented, and participated in this virtual visit which was conducted using real time audio/video Vital Signs Date Time Temp Pulse Resp B/P (MAP) Pulse Ox O2 Delivery O2 Flow Rate FiO2 10/22/21 10:06 Mechanical Ventilator 100.00 10/22/21 09:30 Mechanical Ventilator 80.00 10/22/21 09:15 68 94/54 10/22/21 07:45 36.5 10/22/21 07:30 92 Mechanical Ventilator 60 10/22/21 07:00 69 10/22/21 06:46 67 26 91 80 10/22/21 06:15 Mechanical Ventilator 65.00 10/22/21 06:00 75 27 162/61 (94) 91 Mechanical Ventilator 60.00 10/22/21 05:51 73 26 94 10/22/21 05:00 54 26 110/53 (72) 94 Mechanical Ventilator 60.00 10/22/21 04:00 52 26 116/56 (76) 94 Mechanical Ventilator 60.00 10/22/21 04:00 93 Mechanical Ventilator 60 10/22/21 03:27 112/53 10/22/21 03:23 107/57 10/22/21 03:19 35.8 10/22/21 03:00 53 26 107/54 (71) 94 Mechanical Ventilator 60.00 10/22/21 02:31 54 26 93 60 10/22/21 02:00 53 26 109/57 (74) 95 Mechanical Ventilator 60.00 10/22/21 01:00 58 10/22/21 01:00 58 26 108/51 (70) 94 Mechanical Ventilator 60.00 10/22/21 00:00 35.5 10/22/21 00:00 53 26 125/61 (82) 93 Mechanical Ventilator 60.00 10/22/21 00:00 93 Mechanical Ventilator 60 10/21/21 23:00 55 26 113/58 (76) 93 Mechanical Ventilator 60.00 10/21/21 22:19 59 28 93 60 10/21/21 22:00 62 26 99/56 (70) 92 Mechanical Ventilator 60.00 10/21/21 21:00 58 26 130/61 (84) 93 Mechanical Ventilator 60.00 10/21/21 20:54 130/60 10/21/21 20:54 58 127/61 10/21/21 20:33 132/64 10/21/21 20:27 135/63 10/21/21 20:00 91 Mechanical Ventilator 55 10/21/21 20:00 58 26 130/64 (86) 93 Mechanical Ventilator 55.00 10/21/21 19:56 36.6 10/21/21 19:00 59 10/21/21 19:00 59 26 135/65 (88) 94 Mechanical Ventilator 55.00 10/21/21 18:23 58 26 91 50 10/21/21 18:00 60 26 136/63 (87) 91 Mechanical Ventilator 50.00 10/21/21 17:45 62 26 116/60 (78) 92 Mechanical Ventilator 50.00 10/21/21 17:30 59 27 137/66 (89) 93 Mechanical Ventilator 50.00 10/21/21 17:15 58 26 137/65 (89) 93 Mechanical Ventilator 50.00 10/21/21 17:00 57 26 137/66 (89) 93 Mechanical Ventilator 50.00 10/21/21 16:45 58 26 132/63 (86) 92 Mechanical Ventilator 50.00 10/21/21 16:44 Mechanical Ventilator 50.00 10/21/21 16:30 59 22 116/62 (80) 88 Mechanical Ventilator 40.00 10/21/21 16:21 95 Mechanical Ventilator 45 10/21/21 16:15 57 19 126/60 (82) 89 Mechanical Ventilator 40.00 10/21/21 16:00 60 24 129/58 (81) 92 Mechanical Ventilator 40.00 10/21/21 15:45 62 23 103/54 (70) 92 Mechanical Ventilator 40.00 10/21/21 15:44 36.4 10/21/21 15:30 59 23 115/59 (77) 92 Mechanical Ventilator 40.00 10/21/21 15:15 58 26 124/61 (82) 92 Mechanical Ventilator 40.00 10/21/21 15:07 59 28 91 40 10/21/21 15:00 59 23 122/62 (82) 92 Mechanical Ventilator 40.00 10/21/21 14:45 60 24 115/57 (76) 91 Mechanical Ventilator 40.00 10/21/21 14:30 67 24 88/50 (63) 94 Mechanical Ventilator 40.00 10/21/21 14:15 66 23 88/41 (57) 90 Mechanical Ventilator 40.00 10/21/21 14:00 66 20 104/49 (67) 89 Mechanical Ventilator 40.00 10/21/21 13:45 60 122/56 (78) 90 Mechanical Ventilator 40.00 10/21/21 13:30 62 26 103/54 (70) 90 Mechanical Ventilator 40.00 10/21/21 13:15 62 37 124/55 (78) 89 Mechanical Ventilator 40.00 10/21/21 13:00 62 33 122/55 (77) 90 Mechanical Ventilator 40.00 10/21/21 12:54 59 10/21/21 12:45 63 9 112/52 (72) 90 Mechanical Ventilator 40.00 10/21/21 12:30 59 26 122/57 (78) 91 Mechanical Ventilator 40.00 10/21/21 12:19 63 26 120/55 10/21/21 12:19 63 126/64 10/21/21 12:19 63 126/64 10/21/21 12:16 95 Mechanical Ventilator 45 10/21/21 12:15 63 21 104/52 (69) 92 Mechanical Ventilator 40.00 10/21/21 12:00 63 26 126/64 (84) 93 Mechanical Ventilator 40.00 10/21/21 12:00 37.1 10/21/21 11:45 63 26 126/65 (85) 93 Mechanical Ventilator 40.00 10/21/21 11:30 61 26 134/66 (88) 93 Mechanical Ventilator 40.00 10/21/21 11:15 61 26 136/65 (88) 93 Mechanical Ventilator 40.00 10/21/21 11:00 63 23 121/59 (79) 93 Mechanical Ventilator 40.00 I & O 10/22/21 07:00 Intake Total 3670 ml Output Total 3110 ml Balance 560 ml Height & Weight Height: 5'10.00" Weight: 182lbs. 0.0oz. 82.536866qp; 25.79 BMI Method: General Appearance: Chronically ill, Obese (See free text), Other (Intubated and sedated) HEENT: PERRL/EOMI, Normal ENT Inspection Neck: Full Range of Motion Respiratory: Lungs Clear, Normal Breath Sounds Cardiovascular: Regular Rate, Rhythm Capillary Refill: Less Than 3 Seconds Peripheral Pulses: 1+ Dorsalis Pedis (R), 1+ Left Dors-Pedis (L); 2+ Radial Pulses (R), 2+ Radial Pulses (L) Gastrointestinal: non tender, soft Extremity: Normal Capillary Refill Neurologic/Psychiatric: No Alert, No Oriented x3; Other (on vent/sedated) Skin: Normal Color Lymphatic: No Adenopathy Results Lab Laboratory Tests 10/21/21 03:55 10/22/21 03:15 Assessment/Plan Assessment/Plan See free text. Critical Care: Ventilator Management FERDINAND HERNANDEZ MD Oct 22, 2021 11:03
[2021-10-22] MEDS: FLUCONAZOLE 100 MG/50 ML IVPB IV SCH ×2 (11:08)
[2021-10-22] MEDS: NS IV 1000 ML 1,000 ML IV SCH ×3 (11:10→20:47)
[2021-10-22] MEDS: MIDAZOLAM DRIP PRE-MIX 100 ML IV SCH (11:11)
--- NOTE | 2021-10-22 11:36 | Progress Note - Surgery ---
Subjective Date Seen by a Provider: Oct 22, 2021 Time Seen by a Provider: 08:41 Subjective/Events-last exam Patient remains intubated and sedated. Patient still with air leak of chest tube to wall suction. Patient no other significant events overnight. Patient with no family at bedside. Chest x ray: 1. Stable configuration of the right-sided chest tube with no significant right-sided pneumothorax. 2. Slight improved aeration in the right lung base with continued patchy and consolidative opacities throughout the right lung and in the left mid and lower lung. Objective Exam Vital Signs Date Time Temp Pulse Resp B/P (MAP) Pulse Ox O2 Delivery O2 Flow Rate FiO2 10/22/21 11:11 74 26 127/60 10/22/21 11:05 78 26 92 100 10/22/21 10:32 74 26 94 100 10/22/21 10:06 Mechanical Ventilator 100.00 10/22/21 10:00 66 19 132/70 (90) 89 Mechanical Ventilator 80.00 10/22/21 09:30 Mechanical Ventilator 80.00 10/22/21 09:15 68 94/54 10/22/21 09:00 56 20 138/73 (94) 90 Mechanical Ventilator 65.00 10/22/21 08:00 81 27 133/71 (91) 93 Mechanical Ventilator 65.00 10/22/21 07:45 36.5 10/22/21 07:30 92 Mechanical Ventilator 60 10/22/21 07:00 69 10/22/21 07:00 66 17 91/55 (67) 91 Mechanical Ventilator 65.00 10/22/21 06:46 67 26 91 80 10/22/21 06:15 Mechanical Ventilator 65.00 10/22/21 06:00 75 27 162/61 (94) 91 Mechanical Ventilator 60.00 10/22/21 05:51 73 26 94 10/22/21 05:00 54 26 110/53 (72) 94 Mechanical Ventilator 60.00 10/22/21 04:00 52 26 116/56 (76) 94 Mechanical Ventilator 60.00 10/22/21 04:00 93 Mechanical Ventilator 60 10/22/21 03:27 112/53 10/22/21 03:23 107/57 10/22/21 03:19 35.8 10/22/21 03:00 53 26 107/54 (71) 94 Mechanical Ventilator 60.00 10/22/21 02:31 54 26 93 60 10/22/21 02:00 53 26 109/57 (74) 95 Mechanical Ventilator 60.00 10/22/21 01:00 58 10/22/21 01:00 58 26 108/51 (70) 94 Mechanical Ventilator 60.00 10/22/21 00:00 35.5 10/22/21 00:00 53 26 125/61 (82) 93 Mechanical Ventilator 60.00 10/22/21 00:00 93 Mechanical Ventilator 60 10/21/21 23:00 55 26 113/58 (76) 93 Mechanical Ventilator 60.00 10/21/21 22:19 59 28 93 60 10/21/21 22:00 62 26 99/56 (70) 92 Mechanical Ventilator 60.00 10/21/21 21:00 58 26 130/61 (84) 93 Mechanical Ventilator 60.00 10/21/21 20:54 130/60 10/21/21 20:54 58 127/61 10/21/21 20:33 132/64 10/21/21 20:27 135/63 10/21/21 20:00 91 Mechanical Ventilator 55 10/21/21 20:00 58 26 130/64 (86) 93 Mechanical Ventilator 55.00 10/21/21 19:56 36.6 10/21/21 19:00 59 10/21/21 19:00 59 26 135/65 (88) 94 Mechanical Ventilator 55.00 10/21/21 18:23 58 26 91 50 10/21/21 18:00 60 26 136/63 (87) 91 Mechanical Ventilator 50.00 10/21/21 17:45 62 26 116/60 (78) 92 Mechanical Ventilator 50.00 10/21/21 17:30 59 27 137/66 (89) 93 Mechanical Ventilator 50.00 10/21/21 17:15 58 26 137/65 (89) 93 Mechanical Ventilator 50.00 10/21/21 17:00 57 26 137/66 (89) 93 Mechanical Ventilator 50.00 10/21/21 16:45 58 26 132/63 (86) 92 Mechanical Ventilator 50.00 10/21/21 16:44 Mechanical Ventilator 50.00 10/21/21 16:30 59 22 116/62 (80) 88 Mechanical Ventilator 40.00 10/21/21 16:21 95 Mechanical Ventilator 45 10/21/21 16:15 57 19 126/60 (82) 89 Mechanical Ventilator 40.00 10/21/21 16:00 60 24 129/58 (81) 92 Mechanical Ventilator 40.00 10/21/21 15:45 62 23 103/54 (70) 92 Mechanical Ventilator 40.00 10/21/21 15:44 36.4 10/21/21 15:30 59 23 115/59 (77) 92 Mechanical Ventilator 40.00 10/21/21 15:15 58 26 124/61 (82) 92 Mechanical Ventilator 40.00 10/21/21 15:07 59 28 91 40 10/21/21 15:00 59 23 122/62 (82) 92 Mechanical Ventilator 40.00 10/21/21 14:45 60 24 115/57 (76) 91 Mechanical Ventilator 40.00 10/21/21 14:30 67 24 88/50 (63) 94 Mechanical Ventilator 40.00 10/21/21 14:15 66 23 88/41 (57) 90 Mechanical Ventilator 40.00 10/21/21 14:00 66 20 104/49 (67) 89 Mechanical Ventilator 40.00 10/21/21 13:45 60 122/56 (78) 90 Mechanical Ventilator 40.00 10/21/21 13:30 62 26 103/54 (70) 90 Mechanical Ventilator 40.00 10/21/21 13:15 62 37 124/55 (78) 89 Mechanical Ventilator 40.00 10/21/21 13:00 62 33 122/55 (77) 90 Mechanical Ventilator 40.00 10/21/21 12:54 59 10/21/21 12:45 63 9 112/52 (72) 90 Mechanical Ventilator 40.00 10/21/21 12:30 59 26 122/57 (78) 91 Mechanical Ventilator 40.00 10/21/21 12:19 63 26 120/55 10/21/21 12:19 63 126/64 10/21/21 12:19 63 126/64 10/21/21 12:16 95 Mechanical Ventilator 45 10/21/21 12:15 63 21 104/52 (69) 92 Mechanical Ventilator 40.00 10/21/21 12:00 63 26 126/64 (84) 93 Mechanical Ventilator 40.00 10/21/21 12:00 37.1 10/21/21 11:45 63 26 126/65 (85) 93 Mechanical Ventilator 40.00 I & O 10/22/21 07:00 Intake Total 3670 ml Output Total 3110 ml Balance 560 ml Capillary Refill : Less Than 3 Seconds General Appearance: No Apparent Distress, Chronically ill, Obese (See free text), Other (Intubated and sedated) HEENT: PERRL/EOMI, Normal ENT Inspection Neck: Full Range of Motion, Normal Inspection Respiratory: No Accessory Muscle Use, No Respiratory Distress, Other (equal chest rise, thoractostomy tube and thoravent right chest) Cardiovascular: Regular Rate, Rhythm Peripheral Pulses: 1+ Dorsalis Pedis (R), 1+ Left Dors-Pedis (L); 2+ Radial Pulses (R), 2+ Radial Pulses (L) Gastrointestinal: non tender, soft Extremity: Normal Capillary Refill Neurologic/Psychiatric: No Alert, No Oriented x3; Other (on vent/sedated) Skin: Normal Color Lymphatic: No Adenopathy Results Lab Laboratory Tests 10/21/21 11:53: Glucometer 143H 10/21/21 17:46: Glucometer 139H 10/22/21 00:38: Glucometer 109 10/22/21 03:15: White Blood Count 12.1H, Red Blood Count 3.68L, Hemoglobin 10.7L, Hematocrit 34L , Mean Corpuscular Volume 92, Mean Corpuscular Hemoglobin 29, Mean Corpuscular Hemoglobin Concent 32, Red Cell Distribution Width 15.0H, Platelet Count 217, Mean Platelet Volume 10.5, Immature Granulocyte % (Auto) 1, Neutrophils (%) (Auto) 82H, Lymphocytes (%) (Auto) 9L, Monocytes (%) (Auto) 8, Eosinophils (%) (Auto) 0, Basophils (%) (Auto) 0, Neutrophils # (Auto) 9.9H, Lymphocytes # (Auto) 1.1, Monocytes # (Auto) 1.0, Eosinophils # (Auto) 0.0, Basophils # (Auto) 0.0, Immature Granulocyte # (Auto) 0.1, Blood Gas Puncture Site RIGHT ARTLINE, Blood Gas Patient Temperature 35.8, Arterial Blood pH 7.45H, Arterial Blood Partial Pressure CO2 46H, Arterial Blood Partial Pressure O2 67L, Arterial Blood HCO3 32H, Arterial Blood Total CO2 33.1H, Arterial Blood Oxygen Saturation 95, Arterial Blood Base Excess 7.2H, To Test ART LINE, Blood Gas Ventilator Setting YES, Blood Gas Inspired Oxygen 60%, Sodium Level 141, Potassium Level 3.8, Chloride Level 106, Carbon Dioxide Level 27, Anion Gap 8, Blood Urea Nitrogen 16, Creatinine 0.53L, Estimat Glomerular Filtration Rate 163, BU N/Creatinine Ratio 30, Glucose Level 102, Calcium Level 7.4L, Corrected Calcium 8.8, Phosphorus Level 1.8L, Magnesium Level 2.4, Total Bilirubin 0.3, Aspartate Amino Transf (AST/SGOT) 18, Alanine Aminotransferase (ALT/SGPT) 71H, Alkaline Phosphatase 52, Total Protein 4.3L, Albumin 2.3L Microbiology 10/19/21 Gram Stain - Final, Resulted 10/19/21 Sputum Culture - Preliminary, Resulted No growth 10/14/21 Urine Culture - Final, Complete NO GROWTH 10/14/21 Blood Culture - Final, Complete No growth Assessment/Plan Assessment/Plan Assessment/Plan covid resp failure with cardiac arrest and right ptx s/p ct. air leak. will continue to occur while on high PEEP wean peep as tolerates. cont CC management. prognosis poor thoravent placed for second thoractostomy tube chest x ray see HPI- keep chest tubes to suction. MELVA VIRGEN DO Oct 22, 2021 11:36
[2021-10-22] MEDS: DexMEDEtomidine 250 ML DRIP 250 ML IV SCH (15:12)
--- NOTE | 2021-10-22 18:47 | Cardiology Progress Note ---
Progress Note-Cardiology Events since last exam Date Seen by Provider: Oct 22, 2021 Time Seen by Provider: 18:44 Events since last exam I am following him due to atrial fibrillation. He remains in the intensive care unit intubated and sedated. He was put back on norepinephrine infusion due to shock. I spoke to his nurse of today. There have not been any cardiac issues in the past 24 hours. I did not see the patient due to his Covid status. Certain portions of this document may have been dictated utilizing voice recognition technology. Inherent to this technology, typographical and grammatical errors may exist. As much as I am diligent to identify and correct these mistakes, some errors may remain in the document. Vitals Last set of Vitals Signs Vital Signs 10/22/21 10/22/21 10/22/21 16:04 16:05 18:00 Temp 35.8 Pulse 61 Resp 26 B/P (MAP) 131/66 (87) Pulse Ox 91 O2 Delivery Mechanical Ventilator O2 Flow Rate 50.00 FiO2 40 Labs Labs Laboratory Tests 10/22/21 03:15 Exam Vital Signs Vital Signs Date Time Temp Pulse Resp B/P (MAP) Pulse Ox O2 Delivery O2 Flow Rate FiO2 10/22/21 18:00 61 26 131/66 (87) 91 Mechanical Ventilator 50.00 10/22/21 16:05 35.8 10/22/21 16:04 40 Physical Exam I did not examine the patient due to his Covid status. Labs Laboratory Tests Test 10/22/21 00:38 10/22/21 03:15 10/22/21 11:36 10/22/21 17:41 Range/Units Glucometer 109 126 H 136 H 70-110 MG/DL White Blood Count 12.1 H 4.3-11.0 10^3/uL Red Blood Count 3.68 L 4.30-5.52 10^6/uL Hemoglobin 10.7 L 13.3-17.7 g/dL Hematocrit 34 L 40-54 % Mean Corpuscular Volume 92 80-99 fL Mean Corpuscular Hemoglobin 29 25-34 pg Mean Corpuscular Hemoglobin Concent 32 32-36 g/dL Red Cell Distribution Width 15.0 H 10.0-14.5 % Platelet Count 217 130-400 10^3/uL Mean Platelet Volume 10.5 9.0-12.2 fL Immature Granulocyte % (Auto) 1 % Neutrophils (%) (Auto) 82 H 42-75 % Lymphocytes (%) (Auto) 9 L 12-44 % Monocytes (%) (Auto) 8 0-12 % Eosinophils (%) (Auto) 0 0-10 % Basophils (%) (Auto) 0 0-10 % Neutrophils # (Auto) 9.9 H 1.8-7.8 10^3/uL Lymphocytes # (Auto) 1.1 1.0-4.0 10^3/uL Monocytes # (Auto) 1.0 0.0-1.0 10^3/uL Eosinophils # (Auto) 0.0 0.0-0.3 10^3/uL Basophils # (Auto) 0.0 0.0-0.1 10^3/uL Immature Granulocyte # (Auto) 0.1 0.0-0.1 10^3/uL Blood Gas Puncture Site RIGHT ARTLINE Blood Gas Patient Temperature 35.8 Arterial Blood pH 7.45 H 7.37-7.43 Arterial Blood Partial Pressure CO2 46 H 35-45 MMHG Arterial Blood Partial Pressure O2 67 L 79-93 MMHG Arterial Blood HCO3 32 H 23-27 MMOL/L Arterial Blood Total CO2 33.1 H 21.0-31.0 MMOL/L Arterial Blood Oxygen Saturation 95 94-100 % Arterial Blood Base Excess 7.2 H -2.5-2.5 MMOL/L To Test ART LINE Blood Gas Ventilator Setting YES Blood Gas Inspired Oxygen 60% Sodium Level 141 135-145 MMOL/L Potassium Level 3.8 3.6-5.0 MMOL/L Chloride Level 106 98-107 MMOL/L Carbon Dioxide Level 27 21-32 MMOL/L Anion Gap 8 5-14 MMOL/L Blood Urea Nitrogen 16 7-18 MG/DL Creatinine 0.53 L 0.60-1.30 MG/DL Estimat Glomerular Filtration Rate 163 BUN/Creatinine Ratio 30 Glucose Level 102 70-105 MG/DL Calcium Level 7.4 L 8.5-10.1 MG/DL Corrected Calcium 8.8 8.5-10.1 MG/DL Phosphorus Level 1.8 L 2.3-4.7 MG/DL Magnesium Level 2.4 1.6-2.4 MG/DL Total Bilirubin 0.3 0.1-1.0 MG/DL Aspartate Amino Transf (AST/SGOT) 18 5-34 U/L Alanine Aminotransferase (ALT/SGPT) 71 H 0-55 U/L Alkaline Phosphatase 52 40-136 U/L Total Protein 4.3 L 6.4-8.2 GM/DL Albumin 2.3 L 3.2-4.5 GM/DL Diagnosis/Problems Diagnosis/Problems (1) Paroxysmal atrial fibrillation Assessment & Plan: This is a new finding on this patient during this admission. There is most most likely brought on by the resuscitative efforts during his cardiopulmonary arrest. Since his cardioversion, he remains in sinus rhythm and sinus tachycardia on oral amiodarone. This will need to be tapered down over the next month assuming he survives Covid infection. Since the atrial fibrillation was most likely brought on by his cardiopulmonary arrest and lasted less than 48 hours, he does not necessarily need anticoagulation for the atrial fibrillation. However, he is on apixaban due to left lower extremity deep venous thrombosis. (2) Primary hypertension Assessment & Plan: His blood pressure had improved and he was back on his oral antihypertensive medication. However, he is now back on norepinephrine. All antihypertensive medication is again on hold. (3) Cardiorespiratory arrest Assessment & Plan: Most likely brought on by the Covid pneumonia. He remains intubated. (4) Mixed hyperlipidemia Assessment & Plan: Continue statin medication. (5) Deep vein thrombosis of left lower extremity Assessment & Plan: Possibly related to Covid infection. He is now on apixaban. KAIT MORENO JR, MD Oct 22, 2021 18:47
[2021-10-22] MEDS: traZODone 50 MG (DESYREL) TAB PO SCH (20:46)
[2021-10-22] MEDS: AtorvaSTATin TABLET 10 MG TABLET PO SCH (20:46)
[2021-10-22] MEDS: traZODone 100 MG (DESYREL) TAB PO SCH (20:46)
[2021-10-23] VITALS (29 sets, daily range): BP systolic 76–186; BP diastolic 43–83
[2021-10-23] MEDS: inSUlin ASPART (NovoLOG) 1 UNIT/0.01 ML (CHARGE PER UNIT) SQ SCH ×5 (00:20→23:43)
[2021-10-23] MEDS: RT-ALBUTEROL HFA 8.5 GM INHALER IH SCH ×4 (02:57→20:57)
[2021-10-23] MEDS: PIPERACILLIN SODIUM/TAZOBACTAM 4.5 GM in NS (IVPB) 100 ML IV SCH ×3 (03:56→19:52)
[2021-10-23 05:23] LABS: BASOPHILS % (AUTO) 0 % (0-10); EOSINOPHILS # (AUTO) 0.1 10^3/uL (0.0-0.3); EOSINOPHILS % (AUTO) 1 % (0-10); HEMATOCRIT 35 % (40-54); HEMOGLOBIN 10.7 g/dL (13.3-17.7); LYMPHOCYTES # (AUTO) 0.8 10^3/uL (1.0-4.0); LYMPHOCYTES % (AUTO) 7 % (12-44); MEAN CORPUSCULAR HEMOGLOBIN 29 pg (25-34); MEAN CORPUSCULAR HGB CONC 31 g/dL (32-36); MEAN CORPUSCULAR VOLUME 92 fL (80-99); MEAN PLATELET VOLUME 10.2 fL (9.0-12.2); MONOCYTES # (AUTO) 1.1 10^3/uL (0.0-1.0); MONOCYTES % (AUTO) 9 % (0-12); NEUTROPHILS # (AUTO) 9.6 10^3/uL (1.8-7.8); NEUTROPHILS % (AUTO) 81 % (42-75); PLATELET COUNT 200 10^3/uL (130-400); WHITE BLOOD COUNT 11.9 10^3/uL (4.3-11.0)
[2021-10-23 05:41] LABS: ALBUMIN 2.4 GM/DL (3.2-4.5); POTASSIUM 3.6 MMOL/L (3.6-5.0)
[2021-10-23 05:42] LABS: CALCIUM 7.8 MG/DL (8.5-10.1)
[2021-10-23 05:44] LABS: TOTAL PROTEIN 4.7 GM/DL (6.4-8.2)
[2021-10-23 05:45] LABS: BILIRUBIN,TOTAL 0.4 MG/DL (0.1-1.0)
[2021-10-23 05:47] LABS: CREATININE SERUM 0.58 MG/DL (0.60-1.30); PHOSPHORUS 2.6 MG/DL (2.3-4.7)
[2021-10-23 05:50] LABS: MAGNESIUM 2.3 MG/DL (1.6-2.4)
--- NOTE | 2021-10-23 05:57 | Progress Note - Hospitalist ---
Subjective HPI/CC On Admission Date Seen by Provider: Oct 23, 2021 Time Seen by Provider: 10:00 Admisison Planning May Need Admission (Planning): 08:00 (JAVIER ORDONEZ MD) Progress Progress Note #1: Time: 08:11 Progress Note 51-year-old male presents to the emergency department with his parents chief complaint of increasing shortness of breath, cough, body aches headache, nausea vomiting and diarrhea. Tells us initially that he was seen by replaced by [facility] 2 or 3 days ago, tested negative for Covid. Later his father contributes to the history stating that the patient was in fact told that he had pneumonia and was started on an antibiotic however the patient cannot recall what that was when asked. Patient states that he does not and has not ever smoked. He does not work around fumes or smoke. He states his cough is nonproductive. Has had profoundly severe shortness of breath with exertion over the last 24 hours. Takes medication for cholesterol and hypertension although did not take his medicine for hypertension this morning. Denies known sick contacts with Covid. Is not vaccinated. No history of blood clot in family or himself. No recent prolonged immobility or travel. No pain or swelling in his lower extremities. No recent black or bloody stool. Complains that his heart is "racing". Room air sats in the 70s on arrival to the emergency department. Still at 88 to 89% on 12 L per nasal cannula. Patient is noted to have fine rales at the bases bilaterally, moderate respiratory distress. No swelling in his lower extremities. No tenderness in the calves, negative Homans bilaterally. No rashes. Soft nontender abdomen. Dry oral mucosa. Sepsis work-up initiated with Covid and influenza testing. D-dimer pending. Chest x-ray pending. Patient is started on Vapotherm per respiratory therapy. Subjective/Events-last exam Pt doing about the same Vent settings are 375/26/8/50% Checked meds and labs Pt still sedation Prognosis is guarded as each day passes on the ventilator Objective Exam Vital Signs Vital Signs Date Time Temp Pulse Resp B/P (MAP) Pulse Ox O2 Delivery O2 Flow Rate FiO2 10/24/21 04:00 72 26 149/58 (88) 96 Mechanical Ventilator 70.00 10/24/21 02:08 70 10/24/21 00:00 36.5 Capillary Refill : Less Than 3 Seconds General Appearance: No Apparent Distress, WD/WN, Chronically ill, Other (Sedated and intubated) Respiratory: Lungs Clear, Normal Breath Sounds Cardiovascular: Regular Rate, Rhythm Results/Procedures Lab Laboratory Tests 10/24/21 04:41 Patient resulted labs reviewed. Assessment/Plan Assessment and Plan Assess & Plan/Chief Complaint Assessment: Acute hypoxic respiratory previously BiPAP dependent then status post acute respiratory failure 10/18/2021 status post emergently intubated and right-sided pneumothorax required chest tube placement by Dr. WOLFE with central line status post cardiac arrest x2 with ROSC after 20 minutes of compressions and 6 rounds of epinephrine status post new onset atrial fibrillation with rapid ventricular response status post amiodarone consulting cardiology status post cardioversion due to lack of resolution with IV antiarrhythmics currently off pressors Thora vent right anterior chest wall placed by Dr. Rodriguez on 10/21/2021 COVID-19 pneumonia DVT on anticoagulation Lung mass seen incidentally on CT scan Right-sided chest pain musculoskeletal type Hypertension Plan: BiPAP Vapotherm Anticoagulation 10/14/2021: Supportive care BiPAP 10/15/2021: Supportive care BiPAP Vapotherm Covid protocol meds High risk for intubation 10/16/2021: Complex case Continues to be high risk for intubation Pain control 10/17/2021: BiPAP Max Vapotherm Aggressive IV medication 10/18/2021: Status post cardiac arrest and emergently intubated and with right-sided chest tube and 3 pressors with A. fib and RVR 10/19/2021: Appreciate cardiology, eICU, Dr. WOLFE management yesterday 10/20/2021: Appreciate cardiology eICU for vent management Updated family 10/21/2021: Supportive care Vent management appreciated Osmin Diana Eliquis 10/22/2021: Supportive care Reviewed all meds Still critical illness 10/23/2021: Ventilator management appreciated Supportive care Critical Care Ventilator Management DUSTIN IBRAHIM DO Oct 23, 2021 05:57
[2021-10-23] MEDS: NS IV 1000 ML 1,000 ML IV SCH ×2 (06:26→23:54)
[2021-10-23] MEDS: PROPOFOL DRIP (ICU) 100 ML IV SCH ×5 (06:26→19:51)
[2021-10-23] MEDS: DexMEDEtomidine 250 ML DRIP 250 ML IV SCH ×3 (06:27→23:56)
[2021-10-23] MEDS: POTASSIUM CL 10MEQ/50ML IVPB 50 ML IV SCH ×3 (06:33→10:17)
[2021-10-23] MEDS: MAGNESIUM 1 GM/100 ML IVPB 100 ML IV SCH (06:33)
[2021-10-23] MEDS: KCL 20 MEQ TAB (K-DUR) PO SCH (07:15)
[2021-10-23] MEDS: fentaNYL DRIP PRE-MIX 250 ML IV SCH ×2 (07:49→19:52)
--- NOTE | 2021-10-23 08:17 | Diagnostic Imaging Report ---
INDICATION: Pneumothorax. Single AP view of chest is obtained. Since the study one day earlier, there has been further increase in opacification of the lungs likely related to edema, infiltrate and associated pleural fluid. Right thoracostomy tube is in place. No definite pneumothorax is appreciated. There appears to be additional pneumatic device projecting over the anterior right chest wall which does not definitely reach the pleura. Endotracheal tube is in place with tip at the level of the thoracic inlet. IMPRESSION: Worsening pulmonary edema and/or infiltrate with associated pleural fluid. There is no significant residual pneumothorax. Dictated by: Dictated on workstation # [id number]
[2021-10-23] MEDS: FLUCONAZOLE 100 MG/50 ML IVPB IV SCH ×2 (08:50)
[2021-10-23] MEDS: PANTOPRAZOLE 40 MG (PROTONIX) VIAL IV SCH (08:50)
[2021-10-23] MEDS: ACYCLOVIR 400 MG TABLET (ZOVIRAX) PO SCH ×2 (08:50→17:29)
[2021-10-23] MEDS: AMIODARONE 200 MG (CORDARONE) TAB PO SCH ×2 (08:50→20:18)
[2021-10-23] MEDS: APIXABAN 5 MG (ELIQUIS) TABLET PO SCH ×2 (08:51→20:18)
[2021-10-23] MEDS: lisINopril 20 MG (PRINIVIL) TABLET PO SCH (09:50)
[2021-10-23] MEDS: LIDOCAINE 4% (SALONPAS) PATCH TOP SCH (09:50)
[2021-10-23] MEDS: amLODIPine 5 MG (NORVASC) TAB PO SCH (09:50)
[2021-10-23] MEDS: NOREPINEPHRINE 8 MG/250 ML 250 ML IV SCH (10:54)
--- NOTE | 2021-10-23 13:11 | Tele-ICU Progress Note ---
Subjective Date Seen by a Provider: Oct 23, 2021 Time Seen by a Provider: 13:09 Sepsis Event Evaluation Height, Weight, BMI Height: 5'10.00" Weight: 182lbs. 0.0oz. 82.772879bz; 25.79 BMI Method: Exam Exam Patient acknowledged, consented, and participated in this virtual visit which was conducted using real time audio/video Vital Signs Date Time Temp Pulse Resp B/P (MAP) Pulse Ox O2 Delivery O2 Flow Rate FiO2 10/23/21 11:47 70 26 95 50 10/23/21 11:45 36.9 10/23/21 11:00 64 26 143/66 (91) 95 Mechanical Ventilator 50.00 10/23/21 10:54 70 146/62 10/23/21 10:00 71 26 155/63 (93) 97 Mechanical Ventilator 50.00 10/23/21 09:00 66 26 121/47 (71) 99 Mechanical Ventilator 50.00 10/23/21 08:00 63 26 147/62 (90) 98 Mechanical Ventilator 50.00 10/23/21 07:48 93 Mechanical Ventilator 40 10/23/21 07:46 70 146/62 10/23/21 07:45 70 146/62 10/23/21 07:45 36.0 10/23/21 07:00 61 10/23/21 07:00 62 26 149/55 (86) 98 Mechanical Ventilator 50.00 10/23/21 06:46 80 30 96 50 10/23/21 06:27 66 158/62 10/23/21 06:26 66 160/65 10/23/21 06:00 62 26 149/55 (86) 98 Mechanical Ventilator 50.00 10/23/21 05:00 66 26 139/51 (80) 94 Mechanical Ventilator 50.00 10/23/21 04:15 36.8 10/23/21 04:00 93 Mechanical Ventilator 40 10/23/21 04:00 63 26 145/56 (85) 96 Mechanical Ventilator 50.00 10/23/21 03:00 60 26 155/59 (91) 96 Mechanical Ventilator 50.00 10/23/21 02:57 61 30 96 40 10/23/21 02:00 62 26 125/55 (78) 94 Mechanical Ventilator 50.00 10/23/21 01:47 73 12/28/21 01:00 67 21 115/48 (70) 94 Mechanical Ventilator 50.00 10/23/21 00:03 36.7 10/23/21 00:00 93 Mechanical Ventilator 40 10/23/21 00:00 61 26 154/61 (92) 93 Mechanical Ventilator 50.00 10/22/21 23:12 73 26 90 50 10/22/21 23:00 60 26 143/60 (87) 96 Mechanical Ventilator 50.00 10/22/21 22:00 62 23 134/62 (86) 92 Mechanical Ventilator 50.00 10/22/21 21:20 68 120/64 10/22/21 21:19 68 120/68 10/22/21 21:00 59 26 136/55 (82) 93 Mechanical Ventilator 50.00 10/22/21 20:00 69 21 136/55 (82) 90 Mechanical Ventilator 50.00 10/22/21 20:00 93 Mechanical Ventilator 40 10/22/21 19:59 35.1 10/22/21 19:03 60 26 92 40 10/22/21 19:00 60 27 147/85 (105) 97 Mechanical Ventilator 50.00 10/22/21 19:00 64 10/22/21 18:00 61 26 131/66 (87) 91 Mechanical Ventilator 50.00 10/22/21 17:00 75 26 124/54 (77) 99 Mechanical Ventilator 50.00 10/22/21 16:05 35.8 10/22/21 16:04 93 Mechanical Ventilator 40.00 10/22/21 16:04 92 Mechanical Ventilator 40 10/22/21 16:01 63 26 109/54 (72) 93 Mechanical Ventilator 50.00 10/22/21 16:00 63 26 109/54 (72) 93 Mechanical Ventilator 50.00 10/22/21 15:12 92 Mechanical Ventilator 50.00 10/22/21 15:12 66 114/49 10/22/21 15:00 69 28 112/55 (74) 94 Mechanical Ventilator 60.00 10/22/21 15:00 69 26 121/56 (77) 97 Mechanical Ventilator 60.00 10/22/21 14:53 64 26 94 60 10/22/21 14:41 95 Mechanical Ventilator 60.00 10/22/21 14:00 60 28 112/55 (74) Mechanical Ventilator 70.00 10/22/21 14:00 60 28 112/55 (74) 94 Mechanical Ventilator 70.00 10/22/21 13:34 73 128/62 10/22/21 13:33 76 129/67 10/22/21 13:25 93 Mechanical Ventilator 70.00 I & O 10/23/21 07:00 Intake Total 3080 ml Output Total 5712 ml Balance -2632 ml Height & Weight Height: 5'10.00" Weight: 182lbs. 0.0oz. 82.197969id; 25.79 BMI Method: General Appearance: Chronically ill, Other (Sedated and intubated) HEENT: PERRL/EOMI, Normal ENT Inspection Neck: Full Range of Motion, Normal Inspection Respiratory: Lungs Clear, Normal Breath Sounds Cardiovascular: Regular Rate, Rhythm Capillary Refill: Less Than 3 Seconds Peripheral Pulses: 1+ Dorsalis Pedis (R), 1+ Left Dors-Pedis (L); 2+ Radial Pulses (R), 2+ Radial Pulses (L) Gastrointestinal: non tender, soft Extremity: Normal Capillary Refill Neurologic/Psychiatric: No Alert, No Oriented x3; Other (on vent/sedated) Skin: Normal Color Lymphatic: No Adenopathy Results Lab Laboratory Tests 10/22/21 03:15 10/23/21 05:13 Assessment/Plan Assessment/Plan (Tele-ICU Physician , Progress Note ) Available chart/ vitals / labs / Images reviewed Video assessment done using teleICU camera, rest of exam as per RN Discussed with RN , EXAM PER RN Events overnight : Afebrile I/O = positive Drips: Pressors: , hemodynamically stable Sedation gtt: ( RASS -2 ) follows commands with decrease sedation VENT SETTINGS and ABG reviewed Not candidate for SBT today REVIEWED Cardiovascular Stability / Sedation Score / FI02/PEEP / ABG / CXR Consultants: Hospital course: (10/08) 77 y/o female admitted for COVID+, transfer from other facility - , VT 20L 70% 10/09 changed to BIPAP 10/10 Bipap 100% _ precedex 0.4 10/11 - VT 35/80% prn bipap , precedex 0.4 - LEFT LE DVT 10/14 - VT 60L 75% , , BIPAP 60%- precedex 1.0, STARTED ZOSYN 10/15 - VT 40 100% , worsenign cxr on right , worsenign right sided pain 10/18 - card/pulm arrest - ROSC , PTX , chest tube on LEFT 10/18 - a fin RVR - cardioverted 10/19 - peep 18 60%, 10/20 - Thoravent on ADDITION to chest tube - both with leak, LEVO 10/21 - fio2 40% peep 5, follows commands A/P AHRF / ARDS due to severe COVID19 ( CTA neg for pe 10/07 - in other facility , reportedly - did not see report personally - INTUBATED - 10/18 - AC 26 - 375 -50 % fio2 peep 8 - CXR worsenign -R>>L - - WILL DECREASE SEDATION AND ASSESS FOR WEANING TRAIL ( was on precedex prior to intubation ) card/pulm arrest -10/18 ROSC , PTX - CTH negative 10/19 -follows commands as per credit assessment analyst post arrest ( prop 50 , fent 200 , verced 5 ) Shock - on levo , but intermittently hypertensive MDMD-Smciijvmvyk-3/COVID-19 PNA ( Symptom onset unknown now DX unvaccinted --Dexamethasone - chanhged to 10 qd with wheexzng 10/10- 10/20 - OFF STEROIDS NOW -Hypercoagulable state Full dose lovenox with DVT and PE Pneumomediastinum on ct 10/06- not seen on cxr f/up 10/18 - PTX , RIGHT - chest tube in , large airleak -Thoravent on ADDITION to chest tube 10/20 - both with leak - minimal plural fluid 30 a fib RVR - cardioverted - 10/18 - in sinus , s/p amio bolus , on PO amio now RLL PNA - started on Zosyn 10/14 - >24 - resumed on 10/19 -> Left lower extremity DVT dx 10/12 - small PE on CT 10/19 - fill dose lovenox - >eliquis 10/21 Hyperglycemia - ISS , close f/up on steroids Lines : periph ( Central Line Necessity Reviewed) Hurd: 10/08 OG: Nutrition: TF to start 10/19 Analgesia: Anxiety/ delirium = VTE Prophylaxis: steve 80 bid- > eliquis Stress Ulcer Prophylaxis: po Plans in collaboration with bedside consultants and IM MDs. Discussed with RN to reach out if any questions or concerns A total of 40 minutes of critical care time was devoted to this patient today, required to treat and/or prevent further deterioration of critical care condition ( as above ) . JOHN CROW MD Oct 23, 2021 13:11
[2021-10-23] MEDS ORDERED: meTOprolol 5 MG/5 ML (LOPRESSOR) VIAL IV ONE (16:30)
--- NOTE | 2021-10-23 17:47 | Cardiology Progress Note ---
Progress Note-Cardiology Events since last exam Date Seen by Provider: Oct 23, 2021 Time Seen by Provider: 17:45 Events since last exam I am following him due to atrial fibrillation. He remains in the intensive care unit intubated and sedated. I did not see the patient due to his Covid status. I did speak with his nurse of today. He has been put back on a low-dose of norepinephrine due to recurrent shock. He has not had any recurrent atrial fibrillation. Certain portions of this document may have been dictated utilizing voice recognition technology. Inherent to this technology, typographical and gr ammatical errors may exist. As much as I am diligent to identify and correct these mistakes, some errors may remain in the document. Vitals Last set of Vitals Signs Vital Signs 10/23/21 10/23/21 10/23/21 11:45 15:00 15:18 Temp 36.9 Resp 26 Pulse Ox 98 O2 Delivery Mechanical Ventilator O2 Flow Rate 50.00 FiO2 50 Labs Labs Laboratory Tests 10/23/21 05:13 Exam Vital Signs Vital Signs Date Time Temp Pulse Resp B/P (MAP) Pulse Ox O2 Delivery O2 Flow Rate FiO2 10/23/21 15:33 60 167/68 10/23/21 15:18 26 98 50 10/23/21 15:00 Mechanical Ventilator 50.00 10/23/21 11:45 36.9 Physical Exam I did not examine the patient due to his Covid status. Labs Laboratory Tests Test 10/23/21 00:04 10/23/21 05:13 10/23/21 11:29 10/23/21 17:28 Range/Units Glucometer 114 H 115 H 115 H 70-110 MG/DL White Blood Count 11.9 H 4.3-11.0 10^3/uL Red Blood Count 3.75 L 4.30-5.52 10^6/uL Hemoglobin 10.7 L 13.3-17.7 g/dL Hematocrit 35 L 40-54 % Mean Corpuscular Volume 92 80-99 fL Mean Corpuscular Hemoglobin 29 25-34 pg Mean Corpuscular Hemoglobin Concent 31 L 32-36 g/dL Red Cell Distribution Width 15.5 H 10.0-14.5 % Platelet Count 200 130-400 10^3/uL Mean Platelet Volume 10.2 9.0-12.2 fL Immature Granulocyte % (Auto) 2 % Neutrophils (%) (Auto) 81 H 42-75 % Lymphocytes (%) (Auto) 7 L 12-44 % Monocytes (%) (Auto) 9 0-12 % Eosinophils (%) (Auto) 1 0-10 % Basophils (%) (Auto) 0 0-10 % Neutrophils # (Auto) 9.6 H 1.8-7.8 10^3/uL Lymphocytes # (Auto) 0.8 L 1.0-4.0 10^3/uL Monocytes # (Auto) 1.1 H 0.0-1.0 10^3/uL Eosinophils # (Auto) 0.1 0.0-0.3 10^3/uL Basophils # (Auto) 0.0 0.0-0.1 10^3/uL Immature Granulocyte # (Auto) 0.3 H 0.0-0.1 10^3/uL Sodium Level 145 135-145 MMOL/L Potassium Level 3.6 3.6-5.0 MMOL/L Chloride Level 105 98-107 MMOL/L Carbon Dioxide Level 32 21-32 MMOL/L Anion Gap 8 5-14 MMOL/L Blood Urea Nitrogen 11 7-18 MG/DL Creatinine 0.58 L 0.60-1.30 MG/DL Estimat Glomerular Filtration Rate 147 BUN/Creatinine Ratio 19 Glucose Level 136 H 70-105 MG/DL Calcium Level 7.8 L 8.5-10.1 MG/DL Corrected Calcium 9.1 8.5-10.1 MG/DL Phosphorus Level 2.6 2.3-4.7 MG/DL Magnesium Level 2.3 1.6-2.4 MG/DL Total Bilirubin 0.4 0.1-1.0 MG/DL Aspartate Amino Transf (AST/SGOT) 18 5-34 U/L Alanine Aminotransferase (ALT/SGPT) 57 H 0-55 U/L Alkaline Phosphatase 57 40-136 U/L Total Protein 4.7 L 6.4-8.2 GM/DL Albumin 2.4 L 3.2-4.5 GM/DL Diagnosis/Problems Diagnosis/Problems (1) Paroxysmal atrial fibrillation Assessment & Plan: This is a new finding on this patient during this admission. This was most most likely brought on by the resuscitative efforts during his cardiopulmonary arrest. Since his cardioversion, he remains in sinus rhythm and sinus tachycardia on oral amiodarone. This will need to be tapered down over the next month assuming he survives Covid infection. Since the atrial fibrillation was most likely brought on by his cardiopulmonary arrest and lasted less than 48 hours, he does not necessarily need anticoagulation for the atrial fibrillation. However, he is on apixaban due to left lower extremity deep venous thrombosis. (2) Primary hypertension Assessment & Plan: His blood pressure had improved and he was back on his oral antihypertensive medication. However, he is now back on norepinephrine. All antihypertensive medication is again on hold. (3) Cardiorespiratory arrest Assessment & Plan: Most likely brought on by the Covid pneumonia. He remains intubated. (4) Mixed hyperlipidemia Assessment & Plan: Continue statin medication. (5) Deep vein thrombosis of left lower extremity Assessment & Plan: Possibly related to Covid infection. He is now on apixaban. KAIT MORENO JR, MD Oct 23, 2021 17:47
[2021-10-23] MEDS: AtorvaSTATin TABLET 10 MG TABLET PO SCH (20:18)
[2021-10-23] MEDS: traZODone 100 MG (DESYREL) TAB PO SCH (20:18)
[2021-10-23] MEDS: traZODone 50 MG (DESYREL) TAB PO SCH (20:19)
[2021-10-23] MEDS: MIDAZOLAM DRIP PRE-MIX 100 ML IV SCH (23:56)
[2021-10-24] VITALS (30 sets, daily range): BP systolic 101–209; BP diastolic 44–72
[2021-10-24] MEDS: fentaNYL DRIP PRE-MIX 250 ML IV SCH ×4 (02:06→20:05)
[2021-10-24] MEDS: RT-ALBUTEROL HFA 8.5 GM INHALER IH SCH ×4 (02:08→21:37)
[2021-10-24] MEDS: PIPERACILLIN SODIUM/TAZOBACTAM 4.5 GM in NS (IVPB) 100 ML IV SCH (04:03)
[2021-10-24 04:54] LABS: BASOPHILS % (AUTO) 0 % (0-10); EOSINOPHILS # (AUTO) 0.1 10^3/uL (0.0-0.3); EOSINOPHILS % (AUTO) 1 % (0-10); HEMATOCRIT 33 % (40-54); HEMOGLOBIN 10.3 g/dL (13.3-17.7); LYMPHOCYTES # (AUTO) 0.8 10^3/uL (1.0-4.0); LYMPHOCYTES % (AUTO) 5 % (12-44); MEAN CORPUSCULAR HEMOGLOBIN 29 pg (25-34); MEAN CORPUSCULAR HGB CONC 31 g/dL (32-36); MEAN CORPUSCULAR VOLUME 93 fL (80-99); MEAN PLATELET VOLUME 10.6 fL (9.0-12.2); MONOCYTES # (AUTO) 1.1 10^3/uL (0.0-1.0); MONOCYTES % (AUTO) 7 % (0-12); NEUTROPHILS # (AUTO) 13.1 10^3/uL (1.8-7.8); NEUTROPHILS % (AUTO) 84 % (42-75); PLATELET COUNT 199 10^3/uL (130-400); WHITE BLOOD COUNT 15.5 10^3/uL (4.3-11.0)
[2021-10-24 05:04] LABS: ALBUMIN 2.4 GM/DL (3.2-4.5); POTASSIUM 4.2 MMOL/L (3.6-5.0)
[2021-10-24 05:06] LABS: CALCIUM 7.6 MG/DL (8.5-10.1)
[2021-10-24 05:07] LABS: TOTAL PROTEIN 4.8 GM/DL (6.4-8.2)
[2021-10-24 05:08] LABS: BILIRUBIN,TOTAL 0.4 MG/DL (0.1-1.0)
[2021-10-24 05:10] LABS: CREATININE SERUM 0.56 MG/DL (0.60-1.30); PHOSPHORUS 2.9 MG/DL (2.3-4.7)
[2021-10-24 05:13] LABS: MAGNESIUM 2.3 MG/DL (1.6-2.4)
[2021-10-24] MEDS: PROPOFOL DRIP (ICU) 100 ML IV SCH ×4 (05:46→17:08)
[2021-10-24] MEDS: KCL 20 MEQ TAB (K-DUR) PO SCH (05:47)
[2021-10-24] MEDS: MAGNESIUM 1 GM/100 ML IVPB 100 ML IV SCH (05:47)
[2021-10-24] MEDS: inSUlin ASPART (NovoLOG) 1 UNIT/0.01 ML (CHARGE PER UNIT) SQ SCH ×4 (05:48→23:00)
--- NOTE | 2021-10-24 06:43 | Progress Note - Hospitalist ---
Subjective HPI/CC On Admission Date Seen by Provider: Oct 24, 2021 Time Seen by Provider: 10:00 Admisison Planning May Need Admission (Planning): 08:00 (JAVIER ORDONEZ MD) Progress Progress Note #1: Time: 08:11 Progress Note 51-year-old male presents to the emergency department with his parents chief complaint of increasing shortness of breath, cough, body aches headache, nausea vomiting and diarrhea. Tells us initially that he was seen by [facility] 2 or 3 days ago, tested negative for Covid. Later his father contributes to the history stating that the patient was in fact told that he had pneumonia and was started on an antibiotic however the patient cannot recall what that was when asked. Patient states that he does not and has not ever smoked. He does not work around fumes or smoke. He states his cough is nonproductive. Has had profoundly severe shortness of breath with exertion over the last 24 hours. Takes medication for cholesterol and hypertension although did not take his medicine for hypertension this morning. Denies known sick contacts with Covid. Is not vaccinated. No history of blood clot in family or himself. No recent prolonged immobility or travel. No pain or swelling in his lower extremities. No recent black or bloody stool. Complains that his heart is "racing". Room air sats in the 70s on arrival to the emergency department. Still at 88 to 89% on 12 L per nasal cannula. Patient is noted to have fine rales at the bases bilaterally, moderate respiratory distress. No swelling in his lower extremities. No tenderness in the calves, negative Homans bilaterally. No rashes. Soft nontender abdomen. Dry oral mucosa. Sepsis work-up initiated with Covid and influenza testing. D-dimer pending. Chest x-ray pending. Patient is started on Vapotherm per respiratory therapy. Subjective/Events-last exam Pt about the same Vent settings reviewed FIO2 is at 75% CT of the chest is requested, unsure if he is stable enough to do that Whenever you move him and turn him he becomes critically ill. May be a landmark candidate Objective Exam Vital Signs Vital Signs Date Time Temp Pulse Resp B/P (MAP) Pulse Ox O2 Delivery O2 Flow Rate FiO2 10/25/21 04:00 95 Mechanical Ventilator 80 10/25/21 04:00 36.1 80.00 10/25/21 02:44 62 26 Capillary Refill : Less Than 3 Seconds General Appearance: Chronically ill, Other (Sedated and intubated) Respiratory: No Accessory Muscle Use, No Respiratory Distress, Decreased Breath Sounds Cardiovascular: Regular Rate, Rhythm Results/Procedures Lab Laboratory Tests 10/25/21 03:36 Patient resulted labs reviewed. Assessment/Plan Assessment and Plan Assess & Plan/Chief Complaint Assessment: Acute hypoxic respiratory previously BiPAP dependent then status post acute re spiratory failure 10/18/2021 status post emergently intubated and right-sided pneumothorax required chest tube placement by Dr. WOLFE with central line status post cardiac arrest x2 with ROSC after 20 minutes of compressions and 6 rounds of epinephrine status post new onset atrial fibrillation with rapid ventricular response status post amiodarone consulting cardiology status post cardioversion due to lack of resolution with IV antiarrhythmics currently off pressors Thora vent right anterior chest wall placed by Dr. Rodriguez on 10/21/2021 COVID-19 pneumonia DVT on anticoagulation Lung mass seen incidentally on CT scan Right-sided chest pain musculoskeletal type Hypertension Plan: BiPAP Vapotherm Anticoagulation 10/14/2021: Supportive care BiPAP 10/15/2021: Supportive care BiPAP Vapotherm Covid protocol meds High risk for intubation 10/16/2021: Complex case Continues to be high risk for intubation Pain control 10/17/2021: BiPAP Max Vapotherm Aggressive IV medication 10/18/2021: Status post cardiac arrest and emergently intubated and with right-sided chest tube and 3 pressors with A. fib and RVR 10/19/2021: Appreciate cardiology, eICU, Dr. WOLFE management yesterday 10/20/2021: Appreciate cardiology eICU for vent management Updated family 10/21/2021: Supportive care Vent management appreciated Osmin Diana Eliquis 10/22/2021: Supportive care Reviewed all meds Still critical illness 10/23/2021: Ventilator management appreciated Supportive care 10/24/2021: [place] referral Supportive care Prognosis poor Critical Care Ventilator Management DUSTIN IBRAHIM DO Oct 24, 2021 06:43
--- NOTE | 2021-10-24 07:55 | Progress Note - Surgery ---
Subjective Date Seen by a Provider: Oct 23, 2021 Time Seen by a Provider: 17:00 Subjective/Events-last exam Intubated and sedated. Air leak still present. Peep 5 Chest x ray: Worsening pulmonary edema and/or infiltrate with associated pleural fluid. There is no significant residual pneumothorax. Objective Exam Vital Signs Date Time Temp Pulse Resp B/P (MAP) Pulse Ox O2 Delivery O2 Flow Rate FiO2 10/24/21 07:52 36.2 10/24/21 07:42 68 26 96 70 10/24/21 06:00 72 26 104/51 (68) 95 Mechanical Ventilator 70.00 10/24/21 05:46 78 139/59 10/24/21 05:00 74 26 96 10/24/21 05:00 72 26 128/50 (76) 96 Mechanical Ventilator 70.00 10/24/21 04:00 99 Mechanical Ventilator 70 10/24/21 04:00 72 26 149/58 (88) 96 Mechanical Ventilator 70.00 10/24/21 04:00 37.0 10/24/21 03:00 66 26 151/58 (89) 96 Mechanical Ventilator 70.00 10/24/21 02:08 71 26 95 70 10/24/21 02:00 70 22 128/64 (85) 87 Mechanical Ventilator 70.00 10/24/21 01:00 65 10/24/21 01:00 65 26 152/57 (88) 97 Mechanical Ventilator 70.00 10/24/21 00:00 36.5 Mechanical Ventilator 70.00 10/24/21 00:00 99 Mechanical Ventilator 70 10/24/21 00:00 66 26 154/59 (90) 97 Mechanical Ventilator 70.00 10/23/21 23:56 68 28 143/55 10/23/21 23:56 68 143/55 10/23/21 23:00 70 26 121/49 (73) 96 Mechanical Ventilator 70.00 10/23/21 22:00 65 26 168/68 (101) 96 Mechanical Ventilator 70.00 10/23/21 21:00 67 26 150/61 (90) 98 Mechanical Ventilator 70.00 10/23/21 20:57 67 26 98 70 10/23/21 20:00 99 Mechanical Ventilator 70.00 10/23/21 20:00 99 Mechanical Ventilator 70 10/23/21 20:00 65 26 165/68 (100) 99 Mechanical Ventilator 70.00 10/23/21 20:00 36.9 10/23/21 19:51 65 167/69 10/23/21 19:00 65 10/23/21 19:00 65 26 165/69 (101) 98 Mechanical Ventilator 70.00 10/23/21 18:30 67 26 98 70 10/23/21 18:15 Mechanical Ventilator 70.00 10/23/21 18:00 68 23 145/60 (88) 99 Mechanical Ventilator 50.00 10/23/21 17:00 64 29 171/70 (103) 97 Mechanical Ventilator 50.00 10/23/21 16:15 92 Mechanical Ventilator 40 10/23/21 16:00 62 26 160/64 (96) 94 Mechanical Ventilator 50.00 10/23/21 15:33 60 167/68 10/23/21 15:33 60 122/70 10/23/21 15:18 60 26 98 50 10/23/21 15:00 60 26 167/68 (101) 98 Mechanical Ventilator 50.00 10/23/21 14:00 61 26 164/65 (98) 98 Mechanical Ventilator 50.00 10/23/21 13:00 60 26 165/66 (99) 98 Mechanical Ventilator 50.00 10/23/21 13:00 61 10/23/21 12:16 93 Mechanical Ventilator 40 10/23/21 12:00 69 26 76/43 (54) 94 Mechanical Ventilator 50.00 10/23/21 11:47 70 26 95 50 10/23/21 11:45 36.9 10/23/21 11:00 64 26 143/66 (91) 95 Mechanical Ventilator 50.00 10/23/21 10:54 70 146/62 10/23/21 10:00 71 26 155/63 (93) 97 Mechanical Ventilator 50.00 10/23/21 09:00 66 26 121/47 (71) 99 Mechanical Ventilator 50.00 10/23/21 08:00 63 26 147/62 (90) 98 Mechanical Ventilator 50.00 I & O 10/24/21 07:00 Intake Total 1260 ml Output Total 7380 ml Balance -6120 ml Capillary Refill : Less Than 3 Seconds General Appearance: No Apparent Distress, WD/WN, Chronically ill, Other (Sedated and intubated) HEENT: PERRL/EOMI, Normal ENT Inspection Neck: Full Range of Motion, Normal Inspection Respiratory: Lungs Clear, Normal Breath Sounds Cardiovascular: Regular Rate, Rhythm, No JVD Peripheral Pulses: 1+ Dorsalis Pedis (R), 1+ Left Dors-Pedis (L); 2+ Radial Pulses (R), 2+ Radial Pulses (L) Gastrointestinal: non tender, soft Extremity: Normal Capillary Refill Neurologic/Psychiatric: No Alert, No Oriented x3; Other (on vent/sedated) Skin: Normal Color Lymphatic: No Adenopathy Results Lab Laboratory Tests 10/23/21 11:29: Glucometer 115H 10/23/21 17:28: Glucometer 115H 10/23/21 22:34: Glucometer 113H 10/24/21 04:41: White Blood Count 15.5H, Red Blood Count 3.59L, Hemoglobin 10.3L, Hematocrit 33L , Mean Corpuscular Volume 93, Mean Corpuscular Hemoglobin 29, Mean Corpuscular Hemoglobin Concent 31L, Red Cell Distribution Width 15.6H, Platelet Count 199, Mean Platelet Volume 10.6, Immature Granulocyte % (Auto) 2, Neutrophils (%) (Auto) 84H, Lymphocytes (%) (Auto) 5L, Monocytes (%) (Auto) 7, Eosinophils (%) (Auto) 1, Basophils (%) (Auto) 0, Neutrophils # (Auto) 13.1H, Lymphocytes # (Auto) 0.8L, Monocytes # (Auto) 1.1H, Eosinophils # (Auto) 0.1, Basophils # (Auto) 0.0, Immature Granulocyte # (Auto) 0.3H, Sodium Level 144, Potassium Level 4.2, Chloride Level 104, Carbon Dioxide Level 33H, Anion Gap 7, Blood Urea Nitrogen 8, Creatinine 0.56L, Estimat Glomerular Filtration Rate 153, BUN/Creatinine Ratio 14, Glucose Level 97, Calcium Level 7.6L, Corrected Calcium 8.9, Phosphorus Level 2.9, Magnesium Level 2.3, Total Bilirubin 0.4, Aspartate Amino Transf (AST/SGOT) 14, Alanine Aminotransferase (ALT/SGPT) 42, Alkaline Phosphatase 51, Total Protein 4.8L, Albumin 2.4L Microbiology 10/19/21 Gram Stain - Final, Complete 10/19/21 Sputum Culture - Final, Complete No growth 10/14/21 Urine Culture - Final, Complete NO GROWTH 10/14/21 Blood Culture - Final, Complete No growth Assessment/Plan Assessment/Plan Assessment/Plan covid resp failure with cardiac arrest and right ptx s/p ct. air leak. will continue to occur while on high PEEP wean peep as tolerates. cont CC management. prognosis poor thoravent placed for second thoractostomy tube chest x ray see HPI- keep chest tubes to suction. MELVA VIRGEN DO Oct 24, 2021 07:55
--- NOTE | 2021-10-24 07:57 | Progress Note - Surgery ---
Subjective Date Seen by a Provider: Oct 24, 2021 Time Seen by a Provider: 07:55 Subjective/Events-last exam Remains intubated and sedated. Chest tubes in place. No chest x ray this morning. Air leak. Objective Exam Vital Signs Date Time Temp Pulse Resp B/P (MAP) Pulse Ox O2 Delivery O2 Flow Rate FiO2 10/24/21 07:52 36.2 10/24/21 07:42 68 26 96 70 10/24/21 06:00 72 26 104/51 (68) 95 Mechanical Ventilator 70.00 10/24/21 05:46 78 139/59 10/24/21 05:00 74 26 96 10/24/21 05:00 72 26 128/50 (76) 96 Mechanical Ventilator 70.00 10/24/21 04:00 99 Mechanical Ventilator 70 10/24/21 04:00 72 26 149/58 (88) 96 Mechanical Ventilator 70.00 10/24/21 04:00 37.0 10/24/21 03:00 66 26 151/58 (89) 96 Mechanical Ventilator 70.00 10/24/21 02:08 71 26 95 70 10/24/21 02:00 70 22 128/64 (85) 87 Mechanical Ventilator 70.00 10/24/21 01:00 65 10/24/21 01:00 65 26 152/57 (88) 97 Mechanical Ventilator 70.00 10/24/21 00:00 36.5 Mechanical Ventilator 70.00 10/24/21 00:00 99 Mechanical Ventilator 70 10/24/21 00:00 66 26 154/59 (90) 97 Mechanical Ventilator 70.00 10/23/21 23:56 68 28 143/55 10/23/21 23:56 68 143/55 10/23/21 23:00 70 26 121/49 (73) 96 Mechanical Ventilator 70.00 10/23/21 22:00 65 26 168/68 (101) 96 Mechanical Ventilator 70.00 10/23/21 21:00 67 26 150/61 (90) 98 Mechanical Ventilator 70.00 10/23/21 20:57 67 26 98 70 10/23/21 20:00 99 Mechanical Ventilator 70.00 10/23/21 20:00 99 Mechanical Ventilator 70 10/23/21 20:00 65 26 165/68 (100) 99 Mechanical Ventilator 70.00 10/23/21 20:00 36.9 10/23/21 19:51 65 167/69 10/23/21 19:00 65 10/23/21 19:00 65 26 165/69 (101) 98 Mechanical Ventilator 70.00 10/23/21 18:30 67 26 98 70 10/23/21 18:15 Mechanical Ventilator 70.00 10/23/21 18:00 68 23 145/60 (88) 99 Mechanical Ventilator 50.00 10/23/21 17:00 64 29 171/70 (103) 97 Mechanical Ventilator 50.00 10/23/21 16:15 92 Mechanical Ventilator 40 10/23/21 16:00 62 26 160/64 (96) 94 Mechanical Ventilator 50.00 10/23/21 15:33 60 167/68 10/23/21 15:33 60 122/70 10/23/21 15:18 60 26 98 50 10/23/21 15:00 60 26 167/68 (101) 98 Mechanical Ventilator 50.00 10/23/21 14:00 61 26 164/65 (98) 98 Mechanical Ventilator 50.00 10/23/21 13:00 60 26 165/66 (99) 98 Mechanical Ventilator 50.00 10/23/21 13:00 61 10/23/21 12:16 93 Mechanical Ventilator 40 10/23/21 12:00 69 26 76/43 (54) 94 Mechanical Ventilator 50.00 10/23/21 11:47 70 26 95 50 10/23/21 11:45 36.9 10/23/21 11:00 64 26 143/66 (91) 95 Mechanical Ventilator 50.00 10/23/21 10:54 70 146/62 10/23/21 10:00 71 26 155/63 (93) 97 Mechanical Ventilator 50.00 10/23/21 09:00 66 26 121/47 (71) 99 Mechanical Ventilator 50.00 10/23/21 08:00 63 26 147/62 (90) 98 Mechanical Ventilator 50.00 I & O 10/24/21 07:00 Intake Total 1260 ml Output Total 7380 ml Balance -6120 ml Capillary Refill : Less Than 3 Seconds General Appearance: No Apparent Distress, WD/WN, Chronically ill, Other (Sedated and intubated) HEENT: PERRL/EOMI, Normal ENT Inspection Neck: Full Range of Motion, Normal Inspection Respiratory: Other (equal chest rise) Cardiovascular: Regular Rate, Rhythm, No JVD Peripheral Pulses: 1+ Dorsalis Pedis (R), 1+ Left Dors-Pedis (L); 2+ Radial Pulses (R), 2+ Radial Pulses (L) Gastrointestinal: non tender, soft Extremity: Normal Capillary Refill Neurologic/Psychiatric: No Alert, No Oriented x3; Other (on vent/sedated) Skin: Normal Color Lymphatic: No Adenopathy Results Lab Laboratory Tests 10/23/21 11:29: Glucometer 115H 10/23/21 17:28: Glucometer 115H 10/23/21 22:34: Glucometer 113H 10/24/21 04:41: White Blood Count 15.5H, Red Blood Count 3.59L, Hemoglobin 10.3L, Hematocrit 33L , Mean Corpuscular Volume 93, Mean Corpuscular Hemoglobin 29, Mean Corpuscular Hemoglobin Concent 31L, Red Cell Distribution Width 15.6H, Platelet Count 199, Mean Platelet Volume 10.6, Immature Granulocyte % (Auto) 2, Neutrophils (%) (Auto) 84H, Lymphocytes (%) (Auto) 5L, Monocytes (%) (Auto) 7, Eosinophils (%) (Auto) 1, Basophils (%) (Auto) 0, Neutrophils # (Auto) 13.1H, Lymphocytes # (Auto) 0.8L, Monocytes # (Auto) 1.1H, Eosinophils # (Auto) 0.1, Basophils # (Auto) 0.0, Immature Granulocyte # (Auto) 0.3H, Sodium Level 144, Potassium Level 4.2, Chloride Level 104, Carbon Dioxide Level 33H, Anion Gap 7, Blood Urea Nitrogen 8, Creatinine 0.56L, Estimat Glomerular Filtration Rate 153, BUN/Creatinine Ratio 14, Glucose Level 97, Calcium Level 7.6L, Corrected Calcium 8.9, Phosphorus Level 2.9, Magnesium Level 2.3, Total Bilirubin 0.4, Aspartate Amino Transf (AST/SGOT) 14, Alanine Aminotransferase (ALT/SGPT) 42, Alkaline Phosphatase 51, Total Protein 4.8L, Albumin 2.4L Microbiology 10/19/21 Gram Stain - Final, Complete 10/19/21 Sputum Culture - Final, Complete No growth 10/14/21 Urine Culture - Final, Complete NO GROWTH 10/14/21 Blood Culture - Final, Complete No growth Assessment/Plan Assessment/Plan Assessment/Plan covid resp failure with cardiac arrest and right ptx s/p ct. air leak. will continue to occur while on high PEEP wean peep as tolerates. cont CC management. prognosis poor thoravent placed for second thoractostomy tube chest x ray will get MELVA VIRGEN DO Oct 24, 2021 07:57
[2021-10-24] MEDS: FLUCONAZOLE 100 MG/50 ML IVPB IV SCH ×2 (08:17)
[2021-10-24] MEDS: APIXABAN 5 MG (ELIQUIS) TABLET PO SCH ×2 (08:17→20:06)
[2021-10-24] MEDS: ACYCLOVIR 400 MG TABLET (ZOVIRAX) PO SCH ×2 (08:17→17:07)
[2021-10-24] MEDS: PANTOPRAZOLE 40 MG (PROTONIX) VIAL IV SCH (08:17)
[2021-10-24] MEDS: AMIODARONE 200 MG (CORDARONE) TAB PO SCH ×2 (08:17→20:06)
[2021-10-24] MEDS: amLODIPine 5 MG (NORVASC) TAB PO SCH (08:17)
[2021-10-24] MEDS: lisINopril 20 MG (PRINIVIL) TABLET PO SCH (08:18)
[2021-10-24] MEDS: LIDOCAINE 4% (SALONPAS) PATCH TOP SCH (08:18)
[2021-10-24] MEDS: DexMEDEtomidine 250 ML DRIP 250 ML IV SCH ×3 (08:28→23:00)
--- NOTE | 2021-10-24 09:45 | Diagnostic Imaging Report ---
Indication: Respiratory distress Portable chest 3:41 AM There is ET tube projects over the trachea. There is NG tube projects over the stomach. Right extremity PICC line tip projects over the SVC. There is a drainage catheter in the right axilla. This is outside the thoracic cage. There are diffuse alveolar infiltrates in the lungs. There is right pleural thickening. There is no appreciable pneumothorax. IMPRESSION: Severe diffuse pulmonary infiltrates. Right pleural thickening. These appear similar to the previous day. Dictated by: Dictated on workstation # [id number]
--- NOTE | 2021-10-24 10:53 | Tele-ICU Progress Note ---
Subjective Date Seen by a Provider: Oct 24, 2021 Time Seen by a Provider: 09:35 Sepsis Event Evaluation Height, Weight, BMI Height: 5'10.00" Weight: 182lbs. 0.0oz. 82.266125ji; 25.79 BMI Method: Exam Exam Patient acknowledged, consented, and participated in this virtual visit which was conducted using real time audio/video Vital Signs Date Time Temp Pulse Resp B/P (MAP) Pulse Ox O2 Delivery O2 Flow Rate FiO2 10/24/21 10:37 62 26 93 70 10/24/21 10:00 67 26 112/48 (69) 97 Mechanical Ventilator 70.00 10/24/21 09:00 67 26 134/52 (79) 97 Mechanical Ventilator 70.00 10/24/21 08:28 68 145/55 10/24/21 08:00 63 26 159/58 (91) 97 Mechanical Ventilator 70.00 10/24/21 07:52 36.2 10/24/21 07:42 68 26 96 70 10/24/21 07:00 70 10/24/21 07:00 67 23 139/53 (81) 97 Mechanical Ventilator 70.00 10/24/21 06:00 72 26 104/51 (68) 95 Mechanical Ventilator 70.00 10/24/21 05:46 78 139/59 10/24/21 05:00 74 26 96 10/24/21 05:00 72 26 128/50 (76) 96 Mechanical Ventilator 70.00 10/24/21 04:00 99 Mechanical Ventilator 70 10/24/21 04:00 72 26 149/58 (88) 96 Mechanical Ventilator 70.00 10/24/21 04:00 37.0 10/24/21 03:00 66 26 151/58 (89) 96 Mechanical Ventilator 70.00 10/24/21 02:08 71 26 95 70 10/24/21 02:00 70 22 128/64 (85) 87 Mechanical Ventilator 70.00 10/24/21 01:00 65 10/24/21 01:00 65 26 152/57 (88) 97 Mechanical Ventilator 70.00 10/24/21 00:00 36.5 Mechanical Ventilator 70.00 10/24/21 00:00 99 Mechanical Ventilator 70 10/24/21 00:00 66 26 154/59 (90) 97 Mechanical Ventilator 70.00 10/23/21 23:56 68 28 143/55 10/23/21 23:56 68 143/55 10/23/21 23:00 70 26 121/49 (73) 96 Mechanical Ventilator 70.00 10/23/21 22:00 65 26 168/68 (101) 96 Mechanical Ventilator 70.00 10/23/21 21:00 67 26 150/61 (90) 98 Mechanical Ventilator 70.00 10/23/21 20:57 67 26 98 70 10/23/21 20:00 99 Mechanical Ventilator 70.00 10/23/21 20:00 99 Mechanical Ventilator 70 10/23/21 20:00 65 26 165/68 (100) 99 Mechanical Ventilator 70.00 10/23/21 20:00 36.9 10/23/21 19:51 65 167/69 10/23/21 19:00 65 10/23/21 19:00 65 26 165/69 (101) 98 Mechanical Ventilator 70.00 10/23/21 18:30 67 26 98 70 10/23/21 18:15 Mechanical Ventilator 70.00 10/23/21 18:00 68 23 145/60 (88) 99 Mechanical Ventilator 50.00 10/23/21 17:00 64 29 171/70 (103) 97 Mechanical Ventilator 50.00 10/23/21 16:15 92 Mechanical Ventilator 40 10/23/21 16:00 62 26 160/64 (96) 94 Mechanical Ventilator 50.00 10/23/21 15:33 60 167/68 10/23/21 15:33 60 122/70 10/23/21 15:18 60 26 98 50 10/23/21 15:00 60 26 167/68 (101) 98 Mechanical Ventilator 50.00 10/23/21 14:00 61 26 164/65 (98) 98 Mechanical Ventilator 50.00 10/23/21 13:00 60 26 165/66 (99) 98 Mechanical Ventilator 50.00 10/23/21 13:00 61 10/23/21 12:16 93 Mechanical Ventilator 40 10/23/21 12:00 69 26 76/43 (54) 94 Mechanical Ventilator 50.00 10/23/21 11:47 70 26 95 50 10/23/21 11:45 36.9 10/23/21 11:00 64 26 143/66 (91) 95 Mechanical Ventilator 50.00 10/23/21 10:54 70 146/62 I & O 10/24/21 07:00 Intake Total 1260 ml Output Total 7380 ml Balance -6120 ml Height & Weight Height: 5'10.00" Weight: 182lbs. 0.0oz. 82.282412ye; 25.79 BMI Method: General Appearance: No Apparent Distress, WD/WN, Chronically ill, Other (Sedated and intubated) HEENT: PERRL/EOMI, Normal ENT Inspection Neck: Full Range of Motion, Normal Inspection Respiratory: Other (equal chest rise) Cardiovascular: Regular Rate, Rhythm, No JVD Capillary Refill: Less Than 3 Seconds Peripheral Pulses: 1+ Dorsalis Pedis (R), 1+ Left Dors-Pedis (L); 2+ Radial Pulses (R), 2+ Radial Pulses (L) Gastrointestinal: non tender, soft Extremity: Normal Capillary Refill Neurologic/Psychiatric: No Alert, No Oriented x3; Other (on vent/sedated) Skin: Normal Color Lymphatic: No Adenopathy Results Lab Laboratory Tests 10/23/21 05:13 10/24/21 04:41 Assessment/Plan Assessment/Plan (Tele-ICU Physician , Progress Note ) Available chart/ vitals / labs / Images reviewed Video assessment done using teleICU camera, rest of exam as per RN Discussed with RN , EXAM PER RN Events overnight : Afebrile I/O = negative 5 l Drips: Pressors: LEVO Sedation gtt: ( RASS -2 ) follows commands with decrease sedation VENT SETTINGS and ABG reviewed Not candidate for SBT today REVIEWED Cardiovascular Stability / Sedation Score / FI02/PEEP / ABG / CXR Consultants: Hospital course: (10/08) 77 y/o female admitted for COVID+, transfer from other facility - , VT 20L 70% 10/09 changed to BIPAP 10/10 Bipap 15 /8 100% _ precedex 0.4 10/11 - VT 35/80% prn bipap , precedex 0.4 - LEFT LE DVT 10/14 - VT 60L 75% , , BIPAP 60%- precedex 1.0, STARTED ZOSYN 10/15 - VT 40 100% , worsenign cxr on right , worsenign right sided pain 10/18 - card/pulm arrest - ROSC , PTX , chest tube on LEFT 10/18 - a fin RVR - cardioverted 10/19 - peep 18 60%, 10/20 - Thoravent on ADDITION to chest tube - both with leak, LEVO 10/21 - fio2 40% peep 5, follows commands 10/23 - fio2 75% peep 5 - BOTH CHEST TUBE sWITHOUT leak , tidal variations and minimal fluid drainage - CT CHEST A/P AHRF / ARDS due to severe COVID19 ( CTA neg for pe 10/07 - in other facility , reportedly - did not see report personally - INTUBATED - 10/18 - AC 26 - 375 -50 % fio2 peep 8 - CXR worsenign -R>>L - BOTH CHEST TUBE WITHOUT leak , tidal variations and minimal fluid drainage ORDER CT CHEST 10/24 - ? effusion , ? PNA card/pulm arrest -10/18 ROSC , PTX - CTH negative 10/19 -follows commands as per signal supervisor post arrest ( prop 50 , fent 200 , verced 5 ) Shock - on levo , but intermittently hypertensive [id number]-[id number]-9/COVID-19 PNA ( Symptom onset unknown now DX unvaccinted --Dexamethasone - chanhged to 10 qd with wheexzng 10/10- 10/20 - OFF STEROIDS NOW -Hypercoagulable state Full dose lovenox with DVT and PE Pneumomediastinum on ct 10/06- not seen on cxr f/up 10/18 - PTX , RIGHT - chest tube in , large airleak -Thoravent on ADDITION to chest tube 10/20 - both with leak - minimal plural fluid 30 a fib RVR - cardioverted - 10/18 - in sinus , s/p amio bolus , on PO amio now RLL PNA - started on Zosyn 10/14 - >24 - resumed on 10/19 -> Left lower extremity DVT dx 10/12 - small PE on CT 10/19 - fill dose lovenox - >eliquis 10/21 Hyperglycemia - ISS , close f/up on steroids Lines : periph ( Central Line Necessity Reviewed) Hurd: 10/08 OG: Nutrition: TF to start 10/19 Analgesia: Anxiety/ delirium = VTE Prophylaxis: steve 80 bid- > eliquis Stress Ulcer Prophylaxis: po Plans in collaboration with bedside consultants and IM MDs. Discussed with RN to reach out if any questions or concerns A total of 40 minutes of critical care time was devoted to this patient today, required to treat and/or prevent further deterioration of critical care condition ( as above ) . JOHN CROW MD Oct 24, 2021 10:53
[2021-10-24] MEDS: NOREPINEPHRINE 8 MG/250 ML 250 ML IV SCH (12:20)
--- NOTE | 2021-10-24 15:20 | Diagnostic Imaging Report ---
EXAMINATION: CT chest without contrast. TECHNIQUE: Multiple contiguous axial images were obtained through the chest without the use of intravenous contrast. All CT scans use one or more of the following dose optimizing techniques: Automated exposure control, MA and/or KvP adjustment based on patient size and exam type or iterative reconstruction. HISTORY: COVID-19. COMPARISON: 10/19/2021. FINDINGS: There is severe consolidation throughout both lungs with areas of ground-glass in the upper lobes. These appear similar to prior exam. Right-sided chest tube is present, and there is a small right-sided hydropneumothorax. There is a second catheter in the right lateral chest wall. There is a small left pleural effusion. Patient is intubated. There is mucus in the trachea. There is no axillary or supraclavicular lymphadenopathy. Mildly enlarged mediastinal lymph nodes are likely reactive. Heart size is normal. There are no coronary artery calcifications. No pericardial effusion. Aorta is normal in caliber. Limited views of the upper abdomen are unremarkable. There are no suspicious osseous lesions. IMPRESSION: 1. Stable severe consolidation in the lungs with areas of ground-glass consistent with COVID-19. There may be superimposed bacterial pneumonia given the degree of consolidation. 2. Small right-sided hydropneumothorax with a right-sided chest tube. 3. There is a second catheter in the right chest wall lateral to the rib cage. Dictated by: Dictated on workstation # [id number]
--- NOTE | 2021-10-24 15:42 | Cardiology Progress Note ---
Progress Note-Cardiology Events since last exam Date Seen by Provider: Oct 24, 2021 Time Seen by Provider: 15:39 Events since last exam I am following him due to atrial fibrillation. I did not see the patient due to his Covid status. I did speak with his nurse of today. He has not had any recurrent atrial fibrillation since cardioversion over the weekend and then being placed on oral amiodarone. His oxygenation has not significantly improved over the past 24 hours. He has been on and off norepinephrine for recurrent low blood pressures. Certain portions of this document may have been dictated utilizing voice recognition technology. Inherent to this technology, typographical and grammatical errors may exist. As much as I am diligent to identify and correct these mistakes, some errors may remain in the document. Vitals Last set of Vitals Signs Vital Signs 10/24/21 10/24/21 10/24/21 10/24/21 12:00 14:33 15:00 15:12 Temp 37.1 Pulse 74 Resp 26 B/P (MAP) 132/70 Pulse Ox 96 O2 Delivery Mechanical Ventilator O2 Flow Rate 70.00 FiO2 70 Labs Labs Laboratory Tests 10/24/21 04:41 Exam Vital Signs Vital Signs Date Time Temp Pulse Resp B/P (MAP) Pulse Ox O2 Delivery O2 Flow Rate FiO2 10/24/21 15:12 74 132/70 10/24/21 15:00 26 96 Mechanical Ventilator 70.00 10/24/21 14:33 70 10/24/21 12:00 37.1 Physical Exam I did not examine the patient due to his Covid status. Labs Laboratory Tests Test 10/23/21 17:28 10/23/21 22:34 10/24/21 04:41 10/24/21 11:34 Range/Units Glucometer 115 H 113 H 144 H 70-110 MG/DL White Blood Count 15.5 H 4.3-11.0 10^3/uL Red Blood Count 3.59 L 4.30-5.52 10^6/uL Hemoglobin 10.3 L 13.3-17.7 g/dL Hematocrit 33 L 40-54 % Mean Corpuscular Volume 93 80-99 fL Mean Corpuscular Hemoglobin 29 25-34 pg Mean Corpuscular Hemoglobin Concent 31 L 32-36 g/dL Red Cell Distribution Width 15.6 H 10.0-14.5 % Platelet Count 199 130-400 10^3/uL Mean Platelet Volume 10.6 9.0-12.2 fL Immature Granulocyte % (Auto) 2 % Neutrophils (%) (Auto) 84 H 42-75 % Lymphocytes (%) (Auto) 5 L 12-44 % Monocytes (%) (Auto) 7 0-12 % Eosinophils (%) (Auto) 1 0-10 % Basophils (%) (Auto) 0 0-10 % Neutrophils # (Auto) 13.1 H 1.8-7.8 10^3/uL Lymphocytes # (Auto) 0.8 L 1.0-4.0 10^3/uL Monocytes # (Auto) 1.1 H 0.0-1.0 10^3/uL Eosinophils # (Auto) 0.1 0.0-0.3 10^3/uL Basophils # (Auto) 0.0 0.0-0.1 10^3/uL Immature Granulocyte # (Auto) 0.3 H 0.0-0.1 10^3/uL Sodium Level 144 135-145 MMOL/L Potassium Level 4.2 3.6-5.0 MMOL/L Chloride Level 104 98-107 MMOL/L Carbon Dioxide Level 33 H 21-32 MMOL/L Anion Gap 7 5-14 MMOL/L Blood Urea Nitrogen 8 7-18 MG/DL Creatinine 0.56 L 0.60-1.30 MG/DL Estimat Glomerular Filtration Rate 153 BUN/Creatinine Ratio 14 Glucose Level 97 70-105 MG/DL Calcium Level 7.6 L 8.5-10.1 MG/DL Corrected Calcium 8.9 8.5-10.1 MG/DL Phosphorus Level 2.9 2.3-4.7 MG/DL Magnesium Level 2.3 1.6-2.4 MG/DL Total Bilirubin 0.4 0.1-1.0 MG/DL Aspartate Amino Transf (AST/SGOT) 14 5-34 U/L Alanine Aminotransferase (ALT/SGPT) 42 0-55 U/L Alkaline Phosphatase 51 40-136 U/L Total Protein 4.8 L 6.4-8.2 GM/DL Albumin 2.4 L 3.2-4.5 GM/DL Diagnosis/Problems Diagnosis/Problems (1) Paroxysmal atrial fibrillation Assessment & Plan: This is a new finding on this patient during this admission. This was most most likely brought on by the resuscitative efforts during his cardiopulmonary arrest. Since his cardioversion, he remains in sinus rhythm and sinus tachycardia on oral amiodarone. This will need to be tapered down over the next month assuming he survives Covid infection. Since the atrial fibr illation was most likely brought on by his cardiopulmonary arrest and lasted less than 48 hours, he does not necessarily need anticoagulation for the atrial fibrillation. However, he is on apixaban due to left lower extremity deep venous thrombosis. (2) Primary hypertension Assessment & Plan: We will resume when able. His blood pressure had improved and he was back on his oral antihypertensive medication. However, he has been on and off norepinephrine. All antihypertensive medication is again on hold. We will resume when able. (3) Mixed hyperlipidemia Assessment & Plan: Continue statin medication. (4) Cardiorespiratory arrest Assessment & Plan: Most likely brought on by the Covid pneumonia. He remains intubated. (5) Deep vein thrombosis of left lower extremity Assessment & Plan: Possibly related to Covid infection. He continues on apixaban. KAIT MORENO JR, MD Oct 24, 2021 15:42
[2021-10-24] MEDS: MIDAZOLAM DRIP PRE-MIX 100 ML IV SCH (18:23)
[2021-10-24] MEDS: traZODone 50 MG (DESYREL) TAB PO SCH (20:06)
[2021-10-24] MEDS: AtorvaSTATin TABLET 10 MG TABLET PO SCH (20:06)
[2021-10-24] MEDS: traZODone 100 MG (DESYREL) TAB PO SCH (20:06)
[2021-10-25] VITALS (41 sets, daily range): BP systolic 87–169; BP diastolic 47–81
[2021-10-25] MEDS: PROPOFOL DRIP (ICU) 100 ML IV SCH ×4 (01:16→17:49)
[2021-10-25] MEDS: RT-ALBUTEROL HFA 8.5 GM INHALER IH SCH ×4 (02:44→21:12)
[2021-10-25] MEDS: fentaNYL DRIP PRE-MIX 250 ML IV SCH ×4 (03:08→22:14)
[2021-10-25 03:42] LABS: BASOPHILS % (AUTO) 0 % (0-10); EOSINOPHILS # (AUTO) 0.2 10^3/uL (0.0-0.3); EOSINOPHILS % (AUTO) 1 % (0-10); HEMATOCRIT 33 % (40-54); HEMOGLOBIN 10.3 g/dL (13.3-17.7); LYMPHOCYTES # (AUTO) 0.7 10^3/uL (1.0-4.0); LYMPHOCYTES % (AUTO) 4 % (12-44); MEAN CORPUSCULAR HEMOGLOBIN 29 pg (25-34); MEAN CORPUSCULAR HGB CONC 31 g/dL (32-36); MEAN CORPUSCULAR VOLUME 92 fL (80-99); MEAN PLATELET VOLUME 10.2 fL (9.0-12.2); MONOCYTES # (AUTO) 1.2 10^3/uL (0.0-1.0); MONOCYTES % (AUTO) 7 % (0-12); NEUTROPHILS % (AUTO) 86 % (42-75); PLATELET COUNT 193 10^3/uL (130-400); WHITE BLOOD COUNT 17.4 10^3/uL (4.3-11.0)
[2021-10-25 03:56] LABS: ALBUMIN 2.4 GM/DL (3.2-4.5); POTASSIUM 4.2 MMOL/L (3.6-5.0)
[2021-10-25 03:57] LABS: CALCIUM 8.1 MG/DL (8.5-10.1)
[2021-10-25 03:59] LABS: TOTAL PROTEIN 5.1 GM/DL (6.4-8.2)
[2021-10-25 04:00] LABS: BILIRUBIN,TOTAL 0.4 MG/DL (0.1-1.0)
[2021-10-25 04:02] LABS: CREATININE SERUM 0.58 MG/DL (0.60-1.30); PHOSPHORUS 3.2 MG/DL (2.3-4.7)
[2021-10-25 04:05] LABS: MAGNESIUM 2.3 MG/DL (1.6-2.4)
[2021-10-25] MEDS: MAGNESIUM 1 GM/100 ML IVPB 100 ML IV SCH (05:42)
[2021-10-25] MEDS: POTASSIUM CL 10MEQ/50ML IVPB 50 ML IV SCH (05:42)
[2021-10-25] MEDS: KCL 20 MEQ TAB (K-DUR) PO SCH (05:43)
[2021-10-25] MEDS: inSUlin ASPART (NovoLOG) 1 UNIT/0.01 ML (CHARGE PER UNIT) SQ SCH ×3 (05:43→18:01)
[2021-10-25] MEDS: NOREPINEPHRINE 8 MG/250 ML 250 ML IV SCH ×2 (05:44→23:59)
[2021-10-25] MEDS: PANTOPRAZOLE 40 MG (PROTONIX) VIAL IV SCH (08:49)
[2021-10-25] MEDS: APIXABAN 5 MG (ELIQUIS) TABLET PO SCH ×2 (08:49→21:33)
[2021-10-25] MEDS: ACYCLOVIR 400 MG TABLET (ZOVIRAX) PO SCH ×2 (08:49→18:32)
[2021-10-25] MEDS: FLUCONAZOLE 100 MG/50 ML IVPB IV SCH ×2 (08:50)
[2021-10-25] MEDS: LIDOCAINE 4% (SALONPAS) PATCH TOP SCH (08:50)
[2021-10-25] MEDS: DexMEDEtomidine 250 ML DRIP 250 ML IV SCH ×2 (08:51→17:48)
[2021-10-25] MEDS: lisINopril 20 MG (PRINIVIL) TABLET PO SCH (09:16)
[2021-10-25] MEDS: amLODIPine 5 MG (NORVASC) TAB PO SCH (09:16)
[2021-10-25] MEDS: AMIODARONE 200 MG (CORDARONE) TAB PO SCH ×2 (09:50→21:33)
--- NOTE | 2021-10-25 10:21 | Cardiology Progress Note ---
Progress Note-Cardiology Events since last exam Date Seen by Provider: Oct 25, 2021 Time Seen by Provider: 10:20 Events since last exam I am following him due to atrial fibrillation. He remains in sinus rhythm on oral amiodarone. I did not see the patient due to his Covid status. I did speak with his nurse of today. He continues on a low-dose of intravenous norepinephrine due to shock. Certain portions of this document may have been dictated utilizing voice recognition technology. Inherent to this technology, typographical and grammatical errors may exist. As much as I am diligent to identify and correct these mistakes, some errors may remain in the document. Vitals Last set of Vitals Signs Vital Signs 10/25/21 10/25/21 15:08 17:00 Temp 35.6 Pulse 61 Resp 26 B/P (MAP) 152/63 (92) Pulse Ox 93 O2 Delivery Mechanical Ventilator O2 Flow Rate 65.00 FiO2 55 Labs Labs Laboratory Tests 10/25/21 03:36 Exam Vital Signs Vital Signs Date Time Temp Pulse Resp B/P (MAP) Pulse Ox O2 Delivery O2 Flow Rate FiO2 10/25/21 17:00 35.6 Mechanical Ventilator 65.00 10/25/21 17:00 61 26 152/63 (92) 93 10/25/21 15:08 55 Physical Exam I did not see the patient due to his Covid status. Labs Laboratory Tests Test 10/24/21 17:53 10/24/21 22:28 10/25/21 03:36 10/25/21 11:44 Range/Units Glucometer 128 H 131 H 108 70-110 MG/DL White Blood Count 17.4 H 4.3-11.0 10^3/uL Red Blood Count 3.56 L 4.30-5.52 10^6/uL Hemoglobin 10.3 L 13.3-17.7 g/dL Hematocrit 33 L 40-54 % Mean Corpuscular Volume 92 80-99 fL Mean Corpuscular Hemoglobin 29 25-34 pg Mean Corpuscular Hemoglobin Concent 31 L 32-36 g/dL Red Cell Distribution Width 15.5 H 10.0-14.5 % Platelet Count 193 130-400 10^3/uL Mean Platelet Volume 10.2 9.0-12.2 fL Immature Granulocyte % (Auto) 2 % Neutrophils (%) (Auto) 86 H 42-75 % Lymphocytes (%) (Auto) 4 L 12-44 % Monocytes (%) (Auto) 7 0-12 % Eosinophils (%) (Auto) 1 0-10 % Basophils (%) (Auto) 0 0-10 % Neutrophils # (Auto) 15.0 H 1.8-7.8 10^3/uL Lymphocytes # (Auto) 0.7 L 1.0-4.0 10^3/uL Monocytes # (Auto) 1.2 H 0.0-1.0 10^3/uL Eosinophils # (Auto) 0.2 0.0-0.3 10^3/uL Basophils # (Auto) 0.0 0.0-0.1 10^3/uL Immature Granulocyte # (Auto) 0.3 H 0.0-0.1 10^3/uL Sodium Level 143 135-145 MMOL/L Potassium Level 4.2 3.6-5.0 MMOL/L Chloride Level 100 98-107 MMOL/L Carbon Dioxide Level 33 H 21-32 MMOL/L Anion Gap 10 5-14 MMOL/L Blood Urea Nitrogen 9 7-18 MG/DL Creatinine 0.58 L 0.60-1.30 MG/DL Estimat Glomerular Filtration Rate 147 BUN/Creatinine Ratio 16 Glucose Level 130 H 70-105 MG/DL Calcium Level 8.1 L 8.5-10.1 MG/DL Corrected Calcium 9.4 8.5-10.1 MG/DL Phosphorus Level 3.2 2.3-4.7 MG/DL Magnesium Level 2.3 1.6-2.4 MG/DL Total Bilirubin 0.4 0.1-1.0 MG/DL Aspartate Amino Transf (AST/SGOT) 13 5-34 U/L Alanine Aminotransferase (ALT/SGPT) 32 0-55 U/L Alkaline Phosphatase 62 40-136 U/L Total Protein 5.1 L 6.4-8.2 GM/DL Albumin 2.4 L 3.2-4.5 GM/DL Triglycerides Level 228 H <150 MG/DL Diagnosis/Problems Diagnosis/Problems (1) Paroxysmal atrial fibrillation Assessment & Plan: This is a new finding on this patient during this admission. This was most most likely brought on by the resuscitative efforts during his cardiopulmonary arrest. Since his cardioversion on 10/18, he remains in sinus rhythm and sinus tachycardia on oral amiodarone. This will need to be tapered down over the next month assuming he survives Covid infection. Since the atrial fibrillation was most likely brought on by his cardiopulmonary arrest and lasted less than 48 hours, he does not necessarily need anticoagulation for the atrial fibrillation. However, he is on apixaban due to left lower extremity deep venous thrombosis. (2) Primary hypertension Assessment & Plan: He has been intermittently on intravenous norepinephrine due to recurrent shock. At one point he had been back on his antihypertensive therapy but this had to be stopped due to recurrent shock. We will monitor this closely. (3) Mixed hyperlipidemia Assessment & Plan: Continue statin medication. (4) Cardiorespiratory arrest Assessment & Plan: Most likely brought on by the Covid pneumonia. He remains intubated. (5) Deep vein thrombosis of left lower extremity Assessment & Plan: Possibly related to Covid infection. He continues on apixaban. KAIT MORENO JR, MD Oct 25, 2021 10:21
[2021-10-25] MEDS ORDERED: ANIDULAFUNGIN INJECTION 200 MG in NS (IVPB) 250 ML IV NR (10:48)
--- NOTE | 2021-10-25 10:51 | Tele-ICU Progress Note ---
Subjective Date Seen by a Provider: Oct 25, 2021 Time Seen by a Provider: 10:50 Sepsis Event Evaluation Height, Weight, BMI Height: 5'10.00" Weight: 182lbs. 0.0oz. [id number]; 25.79 BMI Method: Exam Exam Patient acknowledged, consented, and participated in this virtual visit which was conducted using real time audio/video Vital Signs Date Time Temp Pulse Resp B/P (MAP) Pulse Ox O2 Delivery O2 Flow Rate FiO2 10/25/21 10:46 68 26 96 50 10/25/21 09:50 65 108/48 10/25/21 09:30 65 26 108/48 (68) 92 10/25/21 09:15 65 26 103/50 (67) 92 10/25/21 09:00 68 26 123/52 (75) 93 10/25/21 08:51 68 135/81 10/25/21 08:50 68 135/81 10/25/21 08:45 59 26 93 10/25/21 08:45 Mechanical Ventilator 50.00 10/25/21 08:45 92 Mechanical Ventilator 50 10/25/21 08:30 57 26 92 10/25/21 08:15 64 26 92 Mechanical Ventilator 10/25/21 08:00 60 26 128/76 (96) 92 Mechanical Ventilator 10/25/21 07:55 36.4 10/25/21 07:45 61 26 91 Mechanical Ventilator 10/25/21 07:30 64 26 89 Mechanical Ventilator 10/25/21 07:17 68 26 91 50 10/25/21 07:15 60 26 98 Mechanical Ventilator 10/25/21 07:00 60 26 135/81 (104) 98 Mechanical Ventilator 10/25/21 07:00 62 10/25/21 07:00 Mechanical Ventilator 80.00 10/25/21 06:45 61 26 98 Mechanical Ventilator 10/25/21 06:30 64 26 98 Mechanical Ventilator 10/25/21 06:00 67 26 144/59 (87) 97 Mechanical Ventilator 80.00 10/25/21 05:44 70 122/51 10/25/21 05:20 68 26 100 10/25/21 05:00 62 26 149/58 (88) 98 Mechanical Ventilator 80.00 10/25/21 04:00 95 Mechanical Ventilator 80 10/25/21 04:00 36.1 Mechanical Ventilator 80.00 10/25/21 04:00 64 26 148/57 (87) 97 Mechanical Ventilator 80.00 10/25/21 03:00 63 26 159/58 (91) 99 Mechanical Ventilator 80.00 10/25/21 02:44 62 26 99 70 10/25/21 02:00 63 26 144/59 (87) 96 Mechanical Ventilator 80.00 10/25/21 01:16 74 114/64 10/25/21 01:00 78 10/25/21 01:00 68 26 99 Mechanical Ventilator 80.00 10/25/21 00:00 36.3 Mechanical Ventilator 80.00 10/25/21 00:00 63 26 156/55 (88) 97 Mechanical Ventilator 70.00 10/25/21 00:00 95 Mechanical Ventilator 80 10/24/21 23:00 67 26 148/60 (89) 96 Mechanical Ventilator 70.00 10/24/21 23:00 67 153/69 10/24/21 22:00 69 26 107/56 (73) 96 Mechanical Ventilator 70.00 10/24/21 21:37 62 26 97 70 10/24/21 21:00 64 23 129/62 (84) 96 Mechanical Ventilator 70.00 10/24/21 20:00 61 26 149/64 (92) 96 Mechanical Ventilator 70.00 10/24/21 20:00 94 Mechanical Ventilator 80 10/24/21 19:32 36.6 10/24/21 19:00 62 26 140/65 (90) 96 Mechanical Ventilator 70.00 10/24/21 19:00 63 10/24/21 18:53 61 26 96 70 10/24/21 18:23 61 26 128/65 10/24/21 18:00 61 26 135/65 (88) 96 Mechanical Ventilator 70.00 10/24/21 17:08 63 160/63 10/24/21 17:08 63 160/63 10/24/21 17:00 63 26 142/63 (89) 99 Mechanical Ventilator 70.00 10/24/21 16:15 94 Mechanical Ventilator 80 10/24/21 16:00 80 27 126/61 (82) 90 Mechanical Ventilator 70.00 10/24/21 15:43 36.8 10/24/21 15:12 74 132/70 10/24/21 15:00 64 26 209/72 (117) 96 Mechanical Ventilator 70.00 10/24/21 14:33 74 29 95 70 10/24/21 14:00 66 26 147/69 (95) 95 Mechanical Ventilator 70.00 10/24/21 13:00 66 26 146/64 (91) 94 Mechanical Ventilator 70.00 10/24/21 13:00 67 10/24/21 12:45 99 Mechanical Ventilator 70 10/24/21 12:20 62 168/67 10/24/21 12:12 62 168/67 10/24/21 12:11 62 168/67 10/24/21 12:00 64 26 148/62 (90) 93 Mechanical Ventilator 70.00 10/24/21 12:00 37.1 10/24/21 11:00 63 26 169/67 (101) 94 Mechanical Ventilator 70.00 I & O 10/25/21 07:00 Intake Total 1510 ml Output Total 5075 ml Balance -3565 ml Height & Weight Height: 5'10.00" Weight: 182lbs. 0.0oz. 82.608207zv; 25.79 BMI Method: General Appearance: Chronically ill, Other (Sedated and intubated) HEENT: PERRL/EOMI, Normal ENT Inspection Neck: Full Range of Motion, Normal Inspection Respiratory: No Accessory Muscle Use, No Respiratory Distress, Decreased Breath Sounds Cardiovascular: Regular Rate, Rhythm Capillary Refill: Less Than 3 Seconds Peripheral Pulses: 1+ Dorsalis Pedis (R), 1+ Left Dors-Pedis (L); 2+ Radial Pulses (R), 2+ Radial Pulses (L) Gastrointestinal: non tender, soft Extremity: Normal Capillary Refill Neurologic/Psychiatric: No Alert, No Oriented x3; Other (on vent/sedated) Skin: Normal Color Lymphatic: No Adenopathy Results Lab Laboratory Tests 10/24/21 04:41 10/25/21 03:36 Assessment/Plan Assessment/Plan (Tele-ICU Physician , Progress Note ) Available chart/ vitals / labs / Images reviewed Video assessment done using teleICU camera, rest of exam as per RN Discussed with RN , EXAM PER RN Events overnight : Afebrile I/O = negative 5 l Drips: Pressors: LEVO Sedation gtt: ( RASS -2 ) follows commands with decrease sedation VENT SETTINGS and ABG reviewed Not candidate for SBT today REVIEWED Cardiovascular Stability / Sedation Score / FI02/PEEP / ABG / CXR Consultants: Hospital course: (10/08) 77 y/o female admitted for COVID+, transfer from other facility - , VT 20L 70% 10/09 changed to BIPAP 10/10 Bipap 100% _ precedex 0.4 10/11 - VT 35/80% prn bipap , precedex 0.4 - LEFT LE DVT 10/14 - VT 60L 75% , , BIPAP 60%- precedex 1.0, STARTED ZOSYN 10/15 - VT 40 100% , worsenign cxr on right , worsenign right sided pain 10/18 - card/pulm arrest - ROSC , PTX , chest tube on LEFT 10/18 - a fin RVR - cardioverted 10/19 - peep 18 60%, 10/20 - Thoravent on ADDITION to chest tube - both with leak, LEVO 10/21 - fio2 40% peep 5, follows commands 10/23 - fio2 75% peep 5 - BOTH CHEST TUBE sWITHOUT leak , tidal variations and minimal fluid drainage - fio2 70 % + 5 - CT CHEST with small PTX and large infitrate RLL 10/25- fio2 60 % +5 stareted Merrem and eraxis A/P AHRF / ARDS due to severe COVID19 ( CTA neg for pe 10/07 - in other facility , reportedly - did not see report personally - INTUBATED - 10/18 - AC 71 - 375 -50 % fio2 peep 8 - CXR worsenign -R>>L - BOTH CHEST TUBE WITHOUT leak , no tidal variations and minimal fluid drainage CT chest 10/24 -with small PTX and large infitrate RLL- card/pulm arrest -10/18 ROSC , PTX - CTH negative 10/19 -follows commands as per labor contract analyst post arrest ( prop 50 , fent 200 , verced 5 ) Shock - levo intermittently CRUE-Radnryzsyos-2/COVID-19 PNA ( Symptom onset unknown now DX unvaccinted --Dexamethasone - chanhged to 10 qd with wheexzng 10/10- 10/20 - OFF STEROIDS NOW -Hypercoagulable state Full dose lovenox with DVT and PE Pneumomediastinum on ct 10/06- not seen on cxr f/up 10/18 - PTX , RIGHT - chest tube in , large airleak -Thoravent on ADDITION to chest tube 10/20 - both without leak now - PER SX a fib RVR - cardioverted - 10/18 - in sinus , s/p amio bolus , on PO amio now RLL PNA - started on Zosyn 10/14 - > - resumed on 10/19 -> 10/24 - CT with significant infiltrate on RLL and secretiong is ETT - needs go back on abx - 10/25 -resent cx, stareted Merrem and eraxis, might needs bronch Left lower extremity DVT dx 10/12 - small PE on CT 10/19 - fill dose lovenox - >eliquis 10/21 Hyperglycemia - ISS , close f/up on steroids Lines : periph ( Central Line Necessity Reviewed) Hurd: 10/08 OG: Nutrition: TF to start 10/19 Analgesia: Anxiety/ delirium = VTE Prophylaxis: steve 80 bid- > eliquis Stress Ulcer Prophylaxis: po Plans in collaboration with bedside consultants and IM MDs. Discussed with RN to reach out if any questions or concerns A total of 40 minutes of critical care time was devoted to this patient today, required to treat and/or prevent further deterioration of critical care condition ( as above ) . JOHN CROW MD Oct 25, 2021 10:51
--- NOTE | 2021-10-25 12:04 | Progress Note - Hospitalist ---
Subjective HPI/CC On Admission Date Seen by Provider: Oct 25, 2021 Time Seen by Provider: 11:30 Admisison Planning May Need Admission (Planning): 08:00 (JAVIER ORDONEZ MD) Progress Progress Note #1: Time: 08:11 Progress Note 51-year-old male presents to the emergency department with his parents chief complaint of increasing shortness of breath, cough, body aches headache, nausea vomiting and diarrhea. Tells us initially that he was seen by [facility] 2 or 3 days ago, tested negative for Covid. Later his father contributes to the history stating that the patient was in fact told that he had pneumonia and was started on an antibiotic however the patient cannot recall what that was when asked. Patient states that he does not and has not ever smoked. He does not work around fumes or smoke. He states his cough is nonproductive. Has had profoundly severe shortness of breath with exertion over the last 24 hours. Takes medication for cholesterol and hypertension although did not take his medicine for hypertension this morning. Denies known sick contacts with Covid. Is not vaccinated. No history of blood clot in family or himself. No recent prolonged immobility or travel. No pain or swelling in his lower extremities. No recent black or bloody stool. Complains that his heart is "racing". Room air sats in the 70s on arrival to the emergency department. Still at 88 to 89% on 12 L per nasal cannula. Patient is noted to have fine rales at the bases bilaterally, moderate respiratory distress. No swelling in his lower extremities. No tenderness in the calves, negative Homans bilaterally. No rashes. Soft nontender abdomen. Dry oral mucosa. Sepsis work-up initiated with Covid and influenza testing. D-dimer pending. Chest x-ray pending. Patient is started on Vapotherm per respiratory therapy. Subjective/Events-last exam Pt has had no changes Lungs are coarse Chest tube will require surgery to evaluate PEEP at 5 Objective Exam Vital Signs Vital Signs Date Time Temp Pulse Resp B/P (MAP) Pulse Ox O2 Delivery O2 Flow Rate FiO2 10/26/21 05:06 76 159/68 10/26/21 04:50 28 88 10/26/21 04:00 Mechanical Ventilator 60 10/26/21 00:25 35.7 10/26/21 00:00 60.00 Capillary Refill : Less Than 3 Seconds General Appearance: No Apparent Distress, WD/WN, Chronically ill, Other (Sedated and intubated) Respiratory: No Accessory Muscle Use, No Respiratory Distress, Crackles, Decreased Breath Sounds Cardiovascular: Regular Rate, Rhythm Results/Procedures Lab Laboratory Tests 10/26/21 03:55 Patient resulted labs reviewed. Assessment/Plan Assessment and Plan Assess & Plan/Chief Complaint Assessment: Acute hypoxic respiratory previously BiPAP dependent then status post acute respiratory failure 10/18/2021 status post emergently intubated and right-sided pneumothorax required chest tube placement by Dr. WOLFE with central line status post cardiac arrest x2 with ROSC after 20 minutes of compressions and 6 rounds of epinephrine status post new onset atrial fibrillation with rapid ventricular response status post amiodarone consulting cardiology status post cardioversion due to lack of resolution with IV antiarrhythmics currently off pressors Thora vent right anterior chest wall placed by Dr. Rodriguez on 10/21/2021 COVID-19 pneumonia DVT on anticoagulation Lung mass seen incidentally on CT scan Right-sided chest pain musculoskeletal type Hypertension Plan: BiPAP Vapotherm Anticoagulation 10/14/2021: Supportive care BiPAP 10/15/2021: Supportive care BiPAP Vapotherm Covid protocol meds High risk for intubation 10/16/2021: Complex case Continues to be high risk for intubation Pain control 10/17/2021: BiPAP Max Vapotherm Aggressive IV medication 10/18/2021: Status post cardiac arrest and emergently intubated and with right-sided chest tube and 3 pressors with A. fib and RVR 10/19/2021: Appreciate cardiology, eICU, Dr. WOLFE management yesterday 10/20/2021: Appreciate cardiology eICU for vent management Updated family 10/21/2021: Supportive care Vent management appreciated Osmin Diana Eliquis 10/22/2021: Supportive care Reviewed all meds Still critical illness 10/23/2021: Ventilator management appreciated Supportive care 10/24/2021: Collins referral Supportive care Prognosis poor 10/25/2021: Poor prognosis Supportive care Critical Care Ventilator Management DUSTIN IBRAHIM DO Oct 25, 2021 12:04
[2021-10-25] MEDS: MEROPENEM 1,000 MG in NS (IVPB) 100 ML IV SCH ×2 (12:40→18:32)
[2021-10-25] MEDS: MIDAZOLAM DRIP PRE-MIX 100 ML IV SCH (18:32)
[2021-10-25] MEDS: AtorvaSTATin TABLET 10 MG TABLET PO SCH (21:33)
[2021-10-25] MEDS: traZODone 50 MG (DESYREL) TAB PO SCH (21:33)
[2021-10-25] MEDS: traZODone 100 MG (DESYREL) TAB PO SCH (21:33)
--- NOTE | 2021-10-25 21:42 | Progress Note - Surgery ---
Subjective Date Seen by a Provider: Oct 25, 2021 Time Seen by a Provider: 11:40 Subjective/Events-last exam Patient intubated and sedated. Chest tube and Thora vent. No air leak. CT of the chest and abdomen reviewed demonstrating right small hydropneumothorax the Thora vent has pulled out of the chest cavity. Objective Exam Vital Signs Date Time Temp Pulse Resp B/P (MAP) Pulse Ox O2 Delivery O2 Flow Rate FiO2 10/25/21 21:30 Mechanical Ventilator 60.00 10/25/21 21:12 61 26 94 60 10/25/21 20:00 94 Mechanical Ventilator 65 10/25/21 19:42 35.7 61 26 159/68 (98) 94 Mechanical Ventilator 65.00 10/25/21 19:00 59 10/25/21 18:46 59 26 94 65 10/25/21 18:32 71 26 153/64 10/25/21 18:00 71 26 153/64 (93) 94 Mechanical Ventilator 65.00 10/25/21 17:49 61 152/63 10/25/21 17:49 61 152/63 10/25/21 17:48 61 152/63 10/25/21 17:00 35.6 Mechanical Ventilator 65.00 10/25/21 17:00 61 26 152/63 (92) 93 Mechanical Ventilator 65.00 10/25/21 16:00 60 26 137/57 (83) 90 Mechanical Ventilator 55.00 10/25/21 16:00 92 Mechanical Ventilator 65 10/25/21 15:08 66 26 91 55 10/25/21 15:00 64 26 128/53 (78) 92 Mechanical Ventilator 55.00 10/25/21 14:00 58 26 155/64 (94) 95 Mechanical Ventilator 55.00 10/25/21 13:00 59 26 142/57 (85) 93 Mechanical Ventilator 55.00 10/25/21 13:00 62 10/25/21 12:51 Mechanical Ventilator 55.00 10/25/21 12:04 36.4 10/25/21 12:00 Mechanical Ventilator 80.00 10/25/21 12:00 68 26 113/56 (75) 91 Mechanical Ventilator 80.00 10/25/21 12:00 92 Mechanical Ventilator 55 10/25/21 11:30 67 26 96/48 (64) 90 Mechanical Ventilator 80.00 10/25/21 11:15 65 26 118/52 (74) 91 Mechanical Ventilator 80.00 10/25/21 11:00 71 26 87/49 (62) 90 Mechanical Ventilator 80.00 10/25/21 10:46 68 26 96 50 10/25/21 10:45 77 26 105/55 (72) 94 Mechanical Ventilator 80.00 10/25/21 10:30 67 26 111/51 (71) 91 10/25/21 10:15 68 26 121/52 (75) 92 Mechanical Ventilator 80.00 10/25/21 10:00 69 26 115/49 (71) 92 Mechanical Ventilator 80.00 10/25/21 09:50 65 108/48 10/25/21 09:45 67 26 114/47 (69) 93 Mechanical Ventilator 80.00 10/25/21 09:30 65 26 108/48 (68) 92 Mechanical Ventilator 80.00 10/25/21 09:15 65 26 103/50 (67) 92 10/25/21 09:00 68 26 123/52 (75) 93 Mechanical Ventilator 80.00 10/25/21 08:51 68 135/81 10/25/21 08:50 68 135/81 10/25/21 08:45 59 26 153/60 (91) 93 Mechanical Ventilator 80.00 10/25/21 08:45 Mechanical Ventilator 50.00 10/25/21 08:45 92 Mechanical Ventilator 50 10/25/21 08:30 57 26 165/62 (96) 92 Mechanical Ventilator 80.00 10/25/21 08:15 64 26 92 Mechanical Ventilator 10/25/21 08:00 60 26 128/76 (96) 92 Mechanical Ventilator 80.00 10/25/21 07:55 36.4 10/25/21 07:45 61 26 91 Mechanical Ventilator 10/25/21 07:30 64 26 123/48 (73) 89 Mechanical Ventilator 80.00 10/25/21 07:17 68 26 91 50 10/25/21 07:15 60 26 153/62 (92) 98 Mechanical Ventilator 80.00 10/25/21 07:00 60 26 135/81 (104) 98 Mechanical Ventilator 10/25/21 07:00 62 10/25/21 07:00 Mechanical Ventilator 80.00 10/25/21 06:45 61 26 98 Mechanical Ventilator 10/25/21 06:30 64 26 98 Mechanical Ventilator 10/25/21 06:00 67 26 144/59 (87) 97 Mechanical Ventilator 80.00 10/25/21 05:44 70 122/51 10/25/21 05:20 68 26 100 10/25/21 05:00 62 26 149/58 (88) 98 Mechanical Ventilator 80.00 10/25/21 04:00 95 Mechanical Ventilator 80 10/25/21 04:00 36.1 Mechanical Ventilator 80.00 10/25/21 04:00 64 26 148/57 (87) 97 Mechanical Ventilator 80.00 10/25/21 03:00 63 26 159/58 (91) 99 Mechanical Ventilator 80.00 10/25/21 02:44 62 26 99 70 10/25/21 02:00 63 26 144/59 (87) 96 Mechanical Ventilator 80.00 10/25/21 01:16 74 114/64 10/25/21 01:00 78 10/25/21 01:00 68 26 99 Mechanical Ventilator 80.00 10/25/21 00:00 36.3 Mechanical Ventilator 80.00 10/25/21 00:00 63 26 156/55 (88) 97 Mechanical Ventilator 70.00 10/25/21 00:00 95 Mechanical Ventilator 80 10/24/21 23:00 67 26 148/60 (89) 96 Mechanical Ventilator 70.00 10/24/21 23:00 67 153/69 10/24/21 22:00 69 26 107/56 (73) 96 Mechanical Ventilator 70.00 I & O0 10/25/21 06:59 Intake Total 1510 ml Output Total 5075 ml Balance -3565 ml Capillary Refill : Less Than 3 Seconds General Appearance: Chronically ill, Other (Sedated and intubated) HEENT: PERRL/EOMI, Normal ENT Inspection Neck: Full Range of Motion, Normal Inspection Respiratory: No Accessory Muscle Use, No Respiratory Distress, Other (Right thoracostomy tube, Thora vent) Cardiovascular: Regular Rate, Rhythm Peripheral Pulses: 1+ Dorsalis Pedis (R), 1+ Left Dors-Pedis (L); 2+ Radial Pulses (R), 2+ Radial Pulses (L) Gastrointestinal: non tender, soft Extremity: Normal Capillary Refill Neurologic/Psychiatric: No Alert, No Oriented x3; Other (on vent/sedated) Skin: Normal Color Lymphatic: No Adenopathy Results Lab Laboratory Tests 10/24/21 22:28: Glucometer 131H 10/25/21 03:36: White Blood Count 17.4H, Red Blood Count 3.56L, Hemoglobin 10.3L, Hematocrit 33L , Mean Corpuscular Volume 92, Mean Corpuscular Hemoglobin 29, Mean Corpuscular Hemoglobin Concent 31L, Red Cell Distribution Width 15.5H, Platelet Count 193, Mean Platelet Volume 10.2, Immature Granulocyte % (Auto) 2, Neutrophils (%) (Auto) 86H, Lymphocytes (%) (Auto) 4L, Monocytes (%) (Auto) 7, Eosinophils (%) (Auto) 1, Basophils (%) (Auto) 0, Neutrophils # (Auto) 15.0H, Lymphocytes # (Auto) 0.7L, Monocytes # (Auto) 1.2H, Eosinophils # (Auto) 0.2, Basophils # (Auto) 0.0, Immature Granulocyte # (Auto) 0.3H, Sodium Level 143, Potassium Level 4.2, Chloride Level 100, Carbon Dioxide Level 33H, Anion Gap 10, Blood Urea Nitrogen 9, Creatinine 0.58L, Estimat Glomerular Filtration Rate 147, BUN/Creatinine Ratio 16, Glucose Level 130H, Calcium Level 8.1L, Corrected Calcium 9.4, Phosphorus Level 3.2, Magnesium Level 2.3, Total Bilirubin 0.4, Aspartate Amino Transf (AST/SGOT) 13, Alanine Aminotransferase (ALT/SGPT) 32, Alkaline Phosphatase 62, Total Protein 5.1L, Albumin 2.4L, Triglycerides Level 228H 10/25/21 11:44: Glucometer 108 10/25/21 17:33: Glucometer 110 Microbiology 10/19/21 Gram Stain - Final, Complete 10/19/21 Sputum Culture - Final, Complete No growth 10/14/21 Urine Culture - Final, Complete NO GROWTH 10/14/21 Blood Culture - Final, Complete No growth Assessment/Plan Assessment/Plan Assessment/Plan covid resp failure with cardiac arrest and right ptx s/p ct. air leak. will continue to occur while on high PEEP wean peep as tolerates. cont CC management. prognosis poor CT of the chest from yesterday reviewed demonstrating Thora vent is no longer in the chest will remove it. Patient with no air leak we will continue to keep a atrium to suction due to the hydropneumothorax which is small. MELVA VIRGNE DO Oct 25, 2021 21:41
[2021-10-26] VITALS (29 sets, daily range): BP systolic 99–179; BP diastolic 49–79
[2021-10-26] MEDS: PROPOFOL DRIP (ICU) 100 ML IV SCH ×6 (00:14→20:44)
[2021-10-26] MEDS: inSUlin ASPART (NovoLOG) 1 UNIT/0.01 ML (CHARGE PER UNIT) SQ SCH ×4 (00:26→18:18)
[2021-10-26] MEDS: DexMEDEtomidine 250 ML DRIP 250 ML IV SCH ×3 (01:23→18:00)
[2021-10-26] MEDS: RT-ALBUTEROL HFA 8.5 GM INHALER IH SCH ×4 (02:46→21:07)
[2021-10-26] MEDS: MEROPENEM 1,000 MG in NS (IVPB) 100 ML IV SCH ×3 (03:38→17:59)
[2021-10-26 04:08] LABS: ABG BASE EXCESS 9.7 MMOL/L (-2.5-2.5); ABG OXYGEN SATURATION 95 % (94-100); ABG PCO2 52 MMHG (35-45); ABG PH 7.43 (7.37-7.43); ABG PO2 68 MMHG (79-93); ABG TCO2 36.2 MMOL/L (21.0-31.0)
[2021-10-26 04:09] LABS: ALLENS TEST ARTLINE; INSPIRED O2 60%; PATIENT TEMP 36; VENTILATOR YES
[2021-10-26 04:10] LABS: BASOPHILS % (AUTO) 0 % (0-10); EOSINOPHILS # (AUTO) 0.2 10^3/uL (0.0-0.3); EOSINOPHILS % (AUTO) 2 % (0-10); HEMATOCRIT 31 % (40-54); HEMOGLOBIN 9.6 g/dL (13.3-17.7); LYMPHOCYTES # (AUTO) 0.9 10^3/uL (1.0-4.0); LYMPHOCYTES % (AUTO) 7 % (12-44); MEAN CORPUSCULAR HEMOGLOBIN 28 pg (25-34); MEAN CORPUSCULAR HGB CONC 31 g/dL (32-36); MEAN CORPUSCULAR VOLUME 92 fL (80-99); MEAN PLATELET VOLUME 10.4 fL (9.0-12.2); MONOCYTES # (AUTO) 1.2 10^3/uL (0.0-1.0); MONOCYTES % (AUTO) 10 % (0-12); NEUTROPHILS # (AUTO) 9.2 10^3/uL (1.8-7.8); NEUTROPHILS % (AUTO) 78 % (42-75); PLATELET COUNT 205 10^3/uL (130-400); WHITE BLOOD COUNT 11.9 10^3/uL (4.3-11.0)
[2021-10-26 04:22] LABS: ALBUMIN 2.3 GM/DL (3.2-4.5); POTASSIUM 3.9 MMOL/L (3.6-5.0)
[2021-10-26 04:23] LABS: CALCIUM 7.9 MG/DL (8.5-10.1)
[2021-10-26 04:25] LABS: TOTAL PROTEIN 5.1 GM/DL (6.4-8.2)
[2021-10-26 04:26] LABS: BILIRUBIN,TOTAL 0.3 MG/DL (0.1-1.0)
[2021-10-26 04:28] LABS: CREATININE SERUM 0.59 MG/DL (0.60-1.30); PHOSPHORUS 3.3 MG/DL (2.3-4.7)
[2021-10-26 04:31] LABS: MAGNESIUM 2.4 MG/DL (1.6-2.4)
[2021-10-26] MEDS: POTASSIUM CL 10MEQ/50ML IVPB 50 ML IV SCH (04:39)
[2021-10-26] MEDS: MAGNESIUM 1 GM/100 ML IVPB 100 ML IV SCH (04:39)
[2021-10-26] MEDS: KCL 20 MEQ TAB (K-DUR) PO SCH (04:39)
[2021-10-26] MEDS: NOREPINEPHRINE 8 MG/250 ML 250 ML IV SCH (04:51)
[2021-10-26] MEDS: fentaNYL DRIP PRE-MIX 250 ML IV SCH ×3 (04:53→17:59)
[2021-10-26] MEDS: ACYCLOVIR 400 MG TABLET (ZOVIRAX) PO SCH ×2 (08:24→17:59)
[2021-10-26] MEDS: AMIODARONE 200 MG (CORDARONE) TAB PO SCH ×2 (08:24→20:43)
[2021-10-26] MEDS: PANTOPRAZOLE 40 MG (PROTONIX) VIAL IV SCH (08:24)
[2021-10-26] MEDS: APIXABAN 5 MG (ELIQUIS) TABLET PO SCH ×2 (08:24→20:43)
[2021-10-26] MEDS: LIDOCAINE 4% (SALONPAS) PATCH TOP SCH (08:25)
[2021-10-26] MEDS: lisINopril 20 MG (PRINIVIL) TABLET PO SCH (08:25)
[2021-10-26] MEDS: amLODIPine 5 MG (NORVASC) TAB PO SCH (08:25)
[2021-10-26] MEDS: ANIDULAFUNGIN INJECTION 100 MG in NS (IVPB) 100 ML IV SCH (09:23)
--- NOTE | 2021-10-26 11:28 | Progress Note - Surgery ---
Subjective Time Seen by a Provider: 10:14 Subjective/Events-last exam Pt seen and examined, intubated on vent. Review of Systems unable to obtain, pt intubated Objective Exam Vital Signs Date Time Temp Pulse Resp B/P (MAP) Pulse Ox O2 Delivery O2 Flow Rate FiO2 10/26/21 11:08 66 26 92 55 10/26/21 11:00 63 26 118/62 (80) 94 Mechanical Ventilator 55.00 10/26/21 10:00 70 26 132/62 (85) 95 Mechanical Ventilator 55.00 10/26/21 09:00 63 26 111/60 (77) 95 Mechanical Ventilator 55.00 10/26/21 08:44 93 Mechanical Ventilator 60 10/26/21 08:24 57 145/69 10/26/21 08:00 36.8 10/26/21 08:00 57 26 145/69 (94) 96 Mechanical Ventilator 55.00 10/26/21 07:54 57 26 95 55 10/26/21 07:00 56 26 145/68 (93) 96 Mechanical Ventilator 60.00 10/26/21 07:00 57 10/26/21 06:00 60 26 125/61 (82) 95 Mechanical Ventilator 60.00 10/26/21 05:06 76 159/68 10/26/21 05:05 76 159/68 10/26/21 05:00 75 26 179/79 (112) 92 Mechanical Ventilator 60.00 10/26/21 04:51 76 159/68 10/26/21 04:50 80 28 88 10/26/21 04:00 66 26 159/72 (101) 93 Mechanical Ventilator 60.00 10/26/21 04:00 93 Mechanical Ventilator 60 10/26/21 03:00 65 26 133/61 (85) 95 Mechanical Ventilator 60.00 10/26/21 02:47 76 26 92 60 10/26/21 02:00 63 26 136/65 (88) 96 Mechanical Ventilator 60.00 10/26/21 01:23 61 159/68 10/26/21 01:00 61 26 142/65 (90) 94 Mechanical Ventilator 60.00 10/26/21 01:00 61 10/26/21 00:25 35.7 10/26/21 00:14 61 159/68 10/26/21 00:14 61 159/68 10/26/21 00:00 92 Mechanical Ventilator 60 10/26/21 00:00 60 26 137/63 (87) 93 Mechanical Ventilator 60.00 10/25/21 23:00 60 26 143/66 (91) 93 Mechanical Ventilator 60.00 10/25/21 22:00 36.6 10/25/21 22:00 60 26 146/67 (93) 93 Mechanical Ventilator 60.00 10/25/21 21:30 Mechanical Ventilator 60.00 10/25/21 21:12 61 26 94 60 10/25/21 21:00 60 26 152/70 (97) 94 Mechanical Ventilator 65.00 10/25/21 20:00 94 Mechanical Ventilator 65 10/25/21 20:00 61 26 156/72 (100) 94 Mechanical Ventilator 65.00 10/25/21 19:42 35.7 61 26 159/68 (98) 94 Mechanical Ventilator 65.00 10/25/21 19:00 59 10/25/21 19:00 59 27 158/67 (97) 93 Mechanical Ventilator 65.00 10/25/21 18:46 59 26 94 65 10/25/21 18:32 71 26 153/64 10/25/21 18:00 71 26 153/64 (93) 94 Mechanical Ventilator 65.00 10/25/21 17:49 61 152/63 10/25/21 17:49 61 152/63 10/25/21 17:48 61 152/63 10/25/21 17:00 35.6 Mechanical Ventilator 65.00 10/25/21 17:00 61 26 152/63 (92) 93 Mechanical Ventilator 65.00 10/25/21 16:00 60 26 137/57 (83) 90 Mechanical Ventilator 55.00 10/25/21 16:00 92 Mechanical Ventilator 65 10/25/21 15:08 66 26 91 55 10/25/21 15:00 64 26 128/53 (78) 92 Mechanical Ventilator 55.00 10/25/21 14:00 58 26 155/64 (94) 95 Mechanical Ventilator 55.00 10/25/21 13:00 59 26 142/57 (85) 93 Mechanical Ventilator 55.00 10/25/21 13:00 62 10/25/21 12:51 Mechanical Ventilator 55.00 10/25/21 12:04 36.4 10/25/21 12:00 Mechanical Ventilator 80.00 10/25/21 12:00 68 26 113/56 (75) 91 Mechanical Ventilator 80.00 10/25/21 12:00 92 Mechanical Ventilator 55 10/25/21 11:30 67 26 96/48 (64) 90 Mechanical Ventilator 80.00 I & O 10/26/21 07:00 Intake Total 3520 ml Output Total 3706 ml Balance -186 ml Capillary Refill : Less Than 3 Seconds General Appearance: No Apparent Distress, Chronically ill, Other (Sedated and intubated) HEENT: PERRL/EOMI, Other (ET tube in place) Respiratory: No Accessory Muscle Use, No Respiratory Distress, Crackles, Decreased Breath Sounds, Other (CT with plug at opening) Cardiovascular: Regular Rate, Rhythm, No Murmur Peripheral Pulses: 1+ Dorsalis Pedis (R), 1+ Left Dors-Pedis (L); 2+ Radial Pulses (R), 2+ Radial Pulses (L) Gastrointestinal: non tender, soft Extremity: Normal Capillary Refill Neurologic/Psychiatric: No Alert, No Oriented x3; Other (on vent/sedated) Results Lab Laboratory Tests 10/25/21 11:44: Glucometer 108 10/25/21 17:33: Glucometer 110 10/26/21 03:55: White Blood Count 11.9H, Red Blood Count 3.40L, Hemoglobin 9.6L, Hematocrit 31L, Mean Corpuscular Volume 92, Mean Corpuscular Hemoglobin 28, Mean Corpuscular Hemoglobin Concent 31L, Red Cell Distribution Width 15.7H, Platelet Count 205, Mean Platelet Volume 10.4, Immature Granulocyte % (Auto) 2, Neutrophils (%) (Auto) 78H, Lymphocytes (%) (Auto) 7L, Monocytes (%) (Auto) 10, Eosinophils (%) (Auto) 2, Basophils (%) (Auto) 0, Neutrophils # (Auto) 9.2H, Lymphocytes # (Auto) 0.9L, Monocytes # (Auto) 1.2H, Eosinophils # (Auto) 0.2, Basophils # (Auto) 0.0, Immature Granulocyte # (Auto) 0.3H, Blood Gas Puncture Site ARTLINE, Blood Gas Patient Temperature 36, Arterial Blood pH 7.43, Arterial Blood Partial Pressure CO2 52H, Arterial Blood Partial Pressure O2 68L, Arterial Blood HCO3 35H, Arterial Blood Total CO2 36.2H, Arterial Blood Oxygen Saturation 95, Arterial Blood Base Excess 9.7H, To Test ARTLINE, Blood Gas Ventilator Setting YES, Blood Gas Inspired Oxygen 60%, Sodium Level 141, Potassium Level 3.9, Chloride Level 102, Carbon Dioxide Level 31, Anion Gap 8, Blood Urea Ni trogen 10, Creatinine 0.59L, Estimat Glomerular Filtration Rate 144, BUN/Creatinine Ratio 17, Glucose Level 131H, Calcium Level 7.9L, Corrected Calcium 9.3, Phosphorus Level 3.3, Magnesium Level 2.4, Total Bilirubin 0.3, Aspartate Amino Transf (AST/SGOT) 12, Alanine Aminotransferase (ALT/SGPT) 24, Alkaline Phosphatase 68, Total Protein 5.1L, Albumin 2.3L Microbiology 10/25/21 Gram Stain - Final, Resulted 10/25/21 Sputum Culture, Resulted Pending 10/14/21 Urine Culture - Final, Complete NO GROWTH 10/14/21 Blood Culture - Final, Complete No growth Assessment/Plan Assessment/Plan Assessment/Plan Covid resp failure with cardiac arrest and right ptx s/p ct. Patient with no air leak we will continue to keep a atrium to suction due to the hydropneumothorax which is small and recheck CXR tomorrow. I also told nurse to try and flush CT today to get rid of plug and see if that helps with hydropneumothorax. GAYLE JOHANSEN DO Oct 26, 2021 11:28
--- NOTE | 2021-10-26 11:40 | Tele-ICU Progress Note ---
Subjective Date Seen by a Provider: Oct 26, 2021 Time Seen by a Provider: 11:36 Review of Systems ros per rn Sepsis Event Evaluation Height, Weight, BMI Height: 5'10.00" Weight: 182lbs. 0.0oz. 82.276949yw; 25.79 BMI Method: Exam Exam Patient acknowledged, consented, and participated in this virtual visit which was conducted using real time audio/video Vital Signs Date Time Temp Pulse Resp B/P (MAP) Pulse Ox O2 Delivery O2 Flow Rate FiO2 10/26/21 11:08 66 26 92 55 10/26/21 11:00 63 26 118/62 (80) 94 Mechanical Ventilator 55.00 10/26/21 10:00 70 26 132/62 (85) 95 Mechanical Ventilator 55.00 10/26/21 09:00 63 26 111/60 (77) 95 Mechanical Ventilator 55.00 10/26/21 08:44 93 Mechanical Ventilator 60 10/26/21 08:24 57 145/69 10/26/21 08:00 36.8 10/26/21 08:00 57 26 145/69 (94) 96 Mechanical Ventilator 55.00 10/26/21 07:54 57 26 95 55 10/26/21 07:00 56 26 145/68 (93) 96 Mechanical Ventilator 60.00 10/26/21 07:00 57 10/26/21 06:00 60 26 125/61 (82) 95 Mechanical Ventilator 60.00 10/26/21 05:06 76 159/68 10/26/21 05:05 76 159/68 10/26/21 05:00 75 26 179/79 (112) 92 Mechanical Ventilator 60.00 10/26/21 04:51 76 159/68 10/26/21 04:50 80 28 88 10/26/21 04:00 66 26 159/72 (101) 93 Mechanical Ventilator 60.00 10/26/21 04:00 93 Mechanical Ventilator 60 10/26/21 03:00 65 26 133/61 (85) 95 Mechanical Ventilator 60.00 10/26/21 02:47 76 26 92 60 10/26/21 02:00 63 26 136/65 (88) 96 Mechanical Ventilator 60.00 10/26/21 01:23 61 159/68 10/26/21 01:00 61 26 142/65 (90) 94 Mechanical Ventilator 60.00 10/26/21 01:00 61 10/26/21 00:25 35.7 10/26/21 00:14 61 159/68 10/26/21 00:14 61 159/68 10/26/21 00:00 92 Mechanical Ventilator 60 10/26/21 00:00 60 26 137/63 (87) 93 Mechanical Ventilator 60.00 10/25/21 23:00 60 26 143/66 (91) 93 Mechanical Ventilator 60.00 10/25/21 22:00 36.6 10/25/21 22:00 60 26 146/67 (93) 93 Mechanical Ventilator 60.00 10/25/21 21:30 Mechanical Ventilator 60.00 10/25/21 21:12 61 26 94 60 10/25/21 21:00 60 26 152/70 (97) 94 Mechanical Ventilator 65.00 10/25/21 20:00 94 Mechanical Ventilator 65 10/25/21 20:00 61 26 156/72 (100) 94 Mechanical Ventilator 65.00 10/25/21 19:42 35.7 61 26 159/68 (98) 94 Mechanical Ventilator 65.00 10/25/21 19:00 59 10/25/21 19:00 59 27 158/67 (97) 93 Mechanical Ventilator 65.00 10/25/21 18:46 59 26 94 65 10/25/21 18:32 71 26 153/64 10/25/21 18:00 71 26 153/64 (93) 94 Mechanical Ventilator 65.00 10/25/21 17:49 61 152/63 10/25/21 17:49 61 152/63 10/25/21 17:48 61 152/63 10/25/21 17:00 35.6 Mechanical Ventilator 65.00 10/25/21 17:00 61 26 152/63 (92) 93 Mechanical Ventilator 65.00 10/25/21 16:00 60 26 137/57 (83) 90 Mechanical Ventilator 55.00 10/25/21 16:00 92 Mechanical Ventilator 65 10/25/21 15:08 66 26 91 55 10/25/21 15:00 64 26 128/53 (78) 92 Mechanical Ventilator 55.00 10/25/21 14:00 58 26 155/64 (94) 95 Mechanical Ventilator 55.00 10/25/21 13:00 59 26 142/57 (85) 93 Mechanical Ventilator 55.00 10/25/21 13:00 62 10/25/21 12:51 Mechanical Ventilator 55.00 10/25/21 12:04 36.4 10/25/21 12:00 Mechanical Ventilator 80.00 10/25/21 12:00 68 26 113/56 (75) 91 Mechanical Ventilator 80.00 10/25/21 12:00 92 Mechanical Ventilator 55 I & O 10/26/21 07:00 Intake Total 3520 ml Output Total 3706 ml Balance -186 ml Height & Weight Height: 5'10.00" Weight: 182lbs. 0.0oz. 82.155412lm; 25.79 BMI Method: General Appearance: No Apparent Distress, Chronically ill, Other (Sedated and intubated) HEENT: PERRL/EOMI, Other (ET tube in place) Respiratory: No Accessory Muscle Use, No Respiratory Distress, Crackles, Decreased Breath Sounds, Other (CT with plug at opening) Cardiovascular: Regular Rate, Rhythm, No Murmur Capillary Refill: Less Than 3 Seconds Peripheral Pulses: 1+ Dorsalis Pedis (R), 1+ Left Dors-Pedis (L); 2+ Radial Pulses (R), 2+ Radial Pulses (L) Gastrointestinal: non tender, soft Extremity: Normal Capillary Refill Neurologic/Psychiatric: No Alert, No Oriented x3; Other (on vent/sedated) Results Lab Laboratory Tests 10/25/21 03:36 10/26/21 03:55 Assessment/Plan Assessment/Plan (Tele-ICU Physician , Progress Note ) Available chart/ vitals / labs / Images reviewed Video assessment done using teleICU camera, rest of exam as per RN Discussed with RN , EXAM PER RN Events overnight : Afebrile I/O = negative 5 l Drips: Pressors: LEVO Sedation gtt: ( RASS -2 ) follows commands with decrease sedation VENT SETTINGS and ABG reviewed Not candidate for SBT today REVIEWED Cardiovascular Stability / Sedation Score / FI02/PEEP / ABG / CXR Consultants: Hospital course: (10/08) 77 y/o female admitted for COVID+, transfer from other facility - , VT 20L 70% 10/09 changed to BIPAP 10/10 Bipap 15 /8 100% _ precedex 0.4 10/11 - VT 35/80% prn bipap , precedex 0.4 - LEFT LE DVT 10/14 - VT 60L 75% , , BIPAP 60%- precedex 1.0, STARTED ZOSYN 10/15 - VT 40 100% , worsenign cxr on right , worsenign right sided pain 10/18 - card/pulm arrest - ROSC , PTX , chest tube on LEFT 10/18 - a fin RVR - cardioverted 10/19 - peep 18 60%, 10/20 - Thoravent on ADDITION to chest tube - both with leak, LEVO 10/21 - fio2 40% peep 5, follows commands 10/23 - fio2 75% peep 5 - BOTH CHEST TUBE sWITHOUT leak , tidal variations and minimal fluid drainage - fio2 70 % + 5 - CT CHEST with small PTX and large infitrate RLL 10/25- fio2 60 % +5 stareted Merrem and eraxis 10/26 VENT 375/26/60%/PEEP5. STILL ON LEVOPHED. ? CHEST TUBE CLOGGED. BEING FLUSHED. NOT READY FOR SBT. A/P AHRF / ARDS due to severe COVID19 ( CTA neg for pe 10/07 - in other facility , reportedly - did not see report personally - INTUBATED - 10/18 - AC 26 - 375 -50 % fio2 peep 8 - CXR worsenign -R>>L - BOTH CHEST TUBE WITHOUT leak , no tidal variations and minimal fluid drainage CT chest 10/24 -with small PTX and large infitrate RLL- card/pulm arrest -10/18 ROSC , PTX - CTH negative 10/19 -follows commands as per java manager post arrest ( prop 50 , fent 200 , verced 5 ) Shock - levo intermittently RIYS-Ynwalpdtvuj-5/COVID-19 PNA ( Symptom onset unknown now DX unvaccinted --Dexamethasone - chanhged to 10 qd with wheexzng 10/10- 10/20 - OFF STEROIDS NOW -Hypercoagulable state Full dose lovenox with DVT and PE Pneumomediastinum on ct 10/06- not seen on cxr f/up 10/18 - PTX , RIGHT - chest tube in , large airleak -Thoravent on ADDITION to chest tube 10/20 - both without leak now - PER SX a fib RVR - cardioverted - 10/18 - in sinus , s/p amio bolus , on PO amio now RLL PNA - started on Zosyn 10/14 - > - resumed on 10/19 -> 10/24 - CT with significant infiltrate on RLL and secretiong is ETT - needs go back on abx - 10/25 -resent cx, stareted Merrem and eraxis, might needs bronch Left lower extremity DVT dx 10/12 - small PE on CT 10/19 - fill dose lovenox - >eliquis 10/21 Hyperglycemia - ISS , close f/up on steroids Lines : periph ( Central Line Necessity Reviewed) Hurd: 10/08 OG: Nutrition: TF to start 10/19 Analgesia: Anxiety/ delirium = VTE Prophylaxis: steve 80 bid- > eliquis Stress Ulcer Prophylaxis: po Plans in collaboration with bedside consultants and IM MDs. Discussed with RN to reach out if any questions or concerns A total of 30 minutes of critical care time was devoted to this patient today, required to treat and/or prevent further deterioration of critical care condition ( as above ) . Critical Care: Ventilator Management Time spent with patient (mins): 30 MIRNA TOBAR MD Oct 26, 2021 11:40
--- NOTE | 2021-10-26 11:49 | Progress Note - Hospitalist ---
Subjective HPI/CC On Admission Date Seen by Provider: Oct 26, 2021 Time Seen by Provider: 11:30 Admisison Planning May Need Admission (Planning): 08:00 (JAVIER ORDONEZ MD) Progress Progress Note #1: Time: 08:11 Progress Note 51-year-old male presents to the emergency department with his parents chief complaint of increasing shortness of breath, cough, body aches headache, nausea vomiting and diarrhea. Tells us initially that he was seen by [facility] 2 or 3 days ago, tested negative for Covid. Later his father contributes to the history stating that the patient was in fact told that he had pneumonia and was started on an antibiotic however the patient cannot recall what that was when asked. Patient states that he does not and has not ever smoked. He does not work around fumes or smoke. He states his cough is nonproductive. Has had profoundly severe shortness of breath with exertion over the last 24 hours. Takes medication for cholesterol and hypertension although did not take his medicine for hypertension this morning. Denies known sick contacts with Covid. Is not vaccinated. No history of blood clot in family or himself. No recent prolonged immobility or travel. No pain or swelling in his lower extremities. No recent black or bloody stool. Complains that his heart is "racing". Room air sats in the 70s on arrival to the emergency department. Still at 88 to 89% on 12 L per nasal cannula. Patient is noted to have fine rales at the bases bilaterally, moderate respiratory distress. No swelling in his lower extremities. No tenderness in the calves, negative Homans bilaterally. No rashes. Soft nontender abdomen. Dry oral mucosa. Sepsis work-up initiated with Covid and influenza testing. D-dimer pending. Chest x-ray pending. Patient is started on Vapotherm per respiratory therapy. Subjective/Events-last exam No major changes Ventilator dependent Checked meds and labs Coarse breath sounds Objective Exam Vital Signs Vital Signs Date Time Temp Pulse Resp B/P (MAP) Pulse Ox O2 Delivery O2 Flow Rate FiO2 10/26/21 15:35 60 26 93 55 10/26/21 15:00 144/68 (93) Mechanical Ventilator 55.00 10/26/21 11:30 36.7 Capillary Refill : Less Than 3 Seconds General Appearance: No Apparent Distress, WD/WN, Chronically ill, Other (Sedated and intubated) Respiratory: No Accessory Muscle Use, No Respiratory Distress, Crackles, Decreased Breath Sounds Cardiovascular: Regular Rate, Rhythm, No Edema Results/Procedures Lab Laboratory Tests 10/26/21 03:55 Patient resulted labs reviewed. Assessment/Plan Assessment and Plan Assess & Plan/Chief Complaint Assessment: Acute hypoxic respiratory previously BiPAP dependent then status post acute respiratory failure 10/18/2021 status post emergently intubated and right-sided pneumothorax required chest tube placement by Dr. WOLFE with central line status post cardiac arrest x2 with ROSC after 20 minutes of compressions and 6 rounds of epinephrine status post new onset atrial fibrillation with rapid ventricular response status post amiodarone consulting cardiology status post cardioversion due to lack of resolution with IV antiarrhythmics currently off pressors Thora vent right anterior chest wall placed by Dr. Rodriguez on 10/21/2021 COVID-19 pneumonia DVT on anticoagulation Lung mass seen incidentally on CT scan Right-sided chest pain musculoskeletal type Hypertension Plan: BiPAP Vapotherm Anticoagulation 10/14/2021: Supportive care BiPAP 10/15/2021: Supportive care BiPAP Vapotherm Covid protocol meds High risk for intubation 10/16/2021: Complex case Continues to be high risk for intubation Pain control 10/17/2021: BiPAP Max Vapotherm Aggressive IV medication 10/18/2021: Status post cardiac arrest and emergently intubated and with right-sided chest tube and 3 pressors with A. fib and RVR 10/19/2021: Appreciate cardiology, eICU, Dr. WOLFE management yesterday 10/20/2021: Appreciate cardiology eICU for vent management Updated family 10/21/2021: Supportive care Vent management appreciated Osmin Diana Eliquis 10/22/2021: Supportive care Reviewed all meds Still critical illness 10/23/2021: Ventilator management appreciated Supportive care 10/24/2021: [place] referral Supportive care Prognosis poor 10/25/2021: Poor prognosis Supportive care 10/26/2021: Day #9 on vent No significant changes Critical Care Ventilator Management DUSTIN IBRAHIM DO Oct 26, 2021 11:48
--- NOTE | 2021-10-26 12:36 | Cardiology Progress Note ---
Progress Note-Cardiology Events since last exam Date Seen by Provider: Oct 26, 2021 Time Seen by Provider: 12:36 Events since last exam I am following him due to atrial fibrillation. I did not see the patient due to his Covid status. I did speak with his nurse of today. He continues to be on and off norepinephrine due to recurrent low blood pressures. He has not had any recurrent atrial fibrillation. Certain portions of this document may have been dictated utilizing voice recognition technology. Inherent to this technology, typographical and grammatical errors may exist. As much as I am diligent to identify and correct these mistakes, some errors may remain in the document. Vitals Last set of Vitals Signs Vital Signs 10/26/21 10/26/21 10/26/21 11:30 11:38 13:00 Temp 36.7 Pulse 60 Resp 26 B/P (MAP) 171/77 (108) Pulse Ox 96 O2 Delivery Mechanical Ventilator O2 Flow Rate 55.00 FiO2 55 Labs Labs Laboratory Tests 10/26/21 03:55 Exam Vital Signs Vital Signs Date Time Temp Pulse Resp B/P (MAP) Pulse Ox O2 Delivery O2 Flow Rate FiO2 10/26/21 13:00 60 26 171/77 (108) 96 Mechanical Ventilator 55.00 10/26/21 11:38 55 10/26/21 11:30 36.7 Physical Exam I did not examine the patient due to his Covid status. Labs Laboratory Tests Test 10/25/21 17:33 10/26/21 03:55 10/26/21 11:32 Range/Units Glucometer 110 113 H 70-110 MG/DL White Blood Count 11.9 H 4.3-11.0 10^3/uL Red Blood Count 3.40 L 4.30-5.52 10^6/uL Hemoglobin 9.6 L 13.3-17.7 g/dL Hematocrit 31 L 40-54 % Mean Corpuscular Volume 92 80-99 fL Mean Corpuscular Hemoglobin 28 25-34 pg Mean Corpuscular Hemoglobin Concent 31 L 32-36 g/dL Red Cell Distribution Width 15.7 H 10.0-14.5 % Platelet Count 205 130-400 10^3/uL Mean Platelet Volume 10.4 9.0-12.2 fL Immature Granulocyte % (Auto) 2 % Neutrophils (%) (Auto) 78 H 42-75 % Lymphocytes (%) (Auto) 7 L 12-44 % Monocytes (%) (Auto) 10 0-12 % Eosinophils (%) (Auto) 2 0-10 % Basophils (%) (Auto) 0 0-10 % Neutrophils # (Auto) 9.2 H 1.8-7.8 10^3/uL Lymphocytes # (Auto) 0.9 L 1.0-4.0 10^3/uL Monocytes # (Auto) 1.2 H 0.0-1.0 10^3/uL Eosinophils # (Auto) 0.2 0.0-0.3 10^3/uL Basophils # (Auto) 0.0 0.0-0.1 10^3/uL Immature Granulocyte # (Auto) 0.3 H 0.0-0.1 10^3/uL Blood Gas Puncture Site ARTLINE Blood Gas Patient Temperature 36 Arterial Blood pH 7.43 7.37-7.43 Arterial Blood Partial Pressure CO2 52 H 35-45 MMHG Arterial Blood Partial Pressure O2 68 L 79-93 MMHG Arterial Blood HCO3 35 H 23-27 MMOL/L Arterial Blood Total CO2 36.2 H 21.0-31.0 MMOL/L Arterial Blood Oxygen Saturation 95 94-100 % Arterial Blood Base Excess 9.7 H -2.5-2.5 MMOL/L To Test ARTLINE Blood Gas Ventilator Setting YES Blood Gas Inspired Oxygen 60% Sodium Level 141 135-145 MMOL/L Potassium Level 3.9 3.6-5.0 MMOL/L Chloride Level 102 98-107 MMOL/L Carbon Dioxide Level 31 21-32 MMOL/L Anion Gap 8 5-14 MMOL/L Blood Urea Nitrogen 10 7-18 MG/DL Creatinine 0.59 L 0.60-1.30 MG/DL Estimat Glomerular Filtration Rate 144 BUN/Creatinine Ratio 17 Glucose Level 131 H 70-105 MG/DL Calcium Level 7.9 L 8.5-10.1 MG/DL Corrected Calcium 9.3 8.5-10.1 MG/DL Phosphorus Level 3.3 2.3-4.7 MG/DL Magnesium Level 2.4 1.6-2.4 MG/DL Total Bilirubin 0.3 0.1-1.0 MG/DL Aspartate Amino Transf (AST/SGOT) 12 5-34 U/L Alanine Aminotransferase (ALT/SGPT) 24 0-55 U/L Alkaline Phosphatase 68 40-136 U/L Total Protein 5.1 L 6.4-8.2 GM/DL Albumin 2.3 L 3.2-4.5 GM/DL Diagnosis/Problems Diagnosis/Problems (1) Paroxysmal atrial fibrillation Assessment & Plan: This was a new finding on this patient during this admission. This was most most likely brought on by the resuscitative efforts during his cardiopulmonary arrest. Since his cardioversion on 10/18, he remains in sinus rhythm and sinus tachycardia on oral amiodarone. I will decrease the dose of amiodarone at this time. Since the atrial fibrillation was most likely brought on by his cardiopulmonary arrest and lasted less than 48 hours, he does not necessarily need anticoagulation for the atrial fibrillation. However, he is on apixaban due to left lower extremity deep venous thrombosis. (2) Primary hypertension Assessment & Plan: He has been intermittently on intravenous norepinephrine due to recurrent shock. Blood pressures are quite elevated now. He has been receiving amlodipine and lisinopril. I will increase the dose of lisinopril. (3) Mixed hyperlipidemia Assessment & Plan: Continue statin medication. (4) Acute respiratory failure due to COVID-19 Status: Acute Assessment & Plan: The hospitalist and eICU are managing the ventilator. (5) Cardiorespiratory arrest Assessment & Plan: Most likely brought on by the Covid pneumonia. He remains intubated. (6) Deep vein thrombosis of left lower extremity Assessment & Plan: Possibly related to Covid infection. He continues on apixaban. KAIT MORENO JR, MD Oct 26, 2021 12:36
[2021-10-26] MEDS ORDERED: lisINopril 20 MG (PRINIVIL) TABLET PO ONE (14:30)
[2021-10-26] MEDS ORDERED: meTOproloL SUCCINATE 50 MG (TOPROL XL) TAB PO ONE (15:00)
[2021-10-26] MEDS: MIDAZOLAM DRIP PRE-MIX 100 ML IV SCH (18:00)
[2021-10-26] MEDS: traZODone 100 MG (DESYREL) TAB PO SCH (20:43)
[2021-10-26] MEDS: AtorvaSTATin TABLET 10 MG TABLET PO SCH (20:43)
[2021-10-26] MEDS: traZODone 50 MG (DESYREL) TAB PO SCH (20:43)
[2021-10-27] VITALS (30 sets, daily range): BP systolic 99–168; BP diastolic 47–89
[2021-10-27] MEDS: fentaNYL DRIP PRE-MIX 250 ML IV SCH ×2 (00:34→20:21)
[2021-10-27] MEDS: inSUlin ASPART (NovoLOG) 1 UNIT/0.01 ML (CHARGE PER UNIT) SQ SCH ×4 (00:34→17:32)
[2021-10-27] MEDS: DexMEDEtomidine 250 ML DRIP 250 ML IV SCH ×2 (02:11→11:33)
[2021-10-27] MEDS: MEROPENEM 1,000 MG in NS (IVPB) 100 ML IV SCH ×3 (02:11→17:35)
[2021-10-27] MEDS: RT-ALBUTEROL HFA 8.5 GM INHALER IH SCH ×4 (02:22→21:39)
[2021-10-27 03:45] LABS: ABG BASE EXCESS 8.9 MMOL/L (-2.5-2.5); ABG OXYGEN SATURATION 94 % (94-100); ABG PCO2 53 MMHG (35-45); ABG PH 7.42 (7.37-7.43); ABG PO2 64 MMHG (79-93); ABG TCO2 35.5 MMOL/L (21.0-31.0)
[2021-10-27 03:46] LABS: BASOPHILS % (AUTO) 0 % (0-10); EOSINOPHILS # (AUTO) 0.2 10^3/uL (0.0-0.3); EOSINOPHILS % (AUTO) 2 % (0-10); HEMATOCRIT 31 % (40-54); HEMOGLOBIN 9.8 g/dL (13.3-17.7); LYMPHOCYTES # (AUTO) 0.9 10^3/uL (1.0-4.0); LYMPHOCYTES % (AUTO) 9 % (12-44); MEAN CORPUSCULAR HEMOGLOBIN 29 pg (25-34); MEAN CORPUSCULAR HGB CONC 31 g/dL (32-36); MEAN CORPUSCULAR VOLUME 91 fL (80-99); MEAN PLATELET VOLUME 10.6 fL (9.0-12.2); MONOCYTES # (AUTO) 1.2 10^3/uL (0.0-1.0); MONOCYTES % (AUTO) 12 % (0-12); NEUTROPHILS # (AUTO) 7.2 10^3/uL (1.8-7.8); NEUTROPHILS % (AUTO) 72 % (42-75); PLATELET COUNT 201 10^3/uL (130-400); WHITE BLOOD COUNT 9.9 10^3/uL (4.3-11.0)
[2021-10-27] MEDS: MAGNESIUM 1 GM/100 ML IVPB 100 ML IV SCH (03:48)
[2021-10-27] MEDS: KCL 20 MEQ TAB (K-DUR) PO SCH (03:48)
[2021-10-27] MEDS: POTASSIUM CL 10MEQ/50ML IVPB 50 ML IV SCH (03:48)
[2021-10-27 03:49] LABS: ALLENS TEST ARTLINE; PATIENT TEMP 36; VENTILATOR YES
[2021-10-27 04:00] LABS: ALBUMIN 2.4 GM/DL (3.2-4.5); POTASSIUM 4.1 MMOL/L (3.6-5.0)
[2021-10-27 04:01] LABS: CALCIUM 7.9 MG/DL (8.5-10.1)
[2021-10-27 04:03] LABS: TOTAL PROTEIN 5.3 GM/DL (6.4-8.2)
[2021-10-27 04:04] LABS: BILIRUBIN,TOTAL 0.3 MG/DL (0.1-1.0)
[2021-10-27 04:06] LABS: CREATININE SERUM 0.58 MG/DL (0.60-1.30); PHOSPHORUS 3.2 MG/DL (2.3-4.7)
[2021-10-27 04:09] LABS: MAGNESIUM 2.1 MG/DL (1.6-2.4)
[2021-10-27] MEDS: PROPOFOL DRIP (ICU) 100 ML IV SCH ×3 (04:22→21:35)
--- NOTE | 2021-10-27 06:00 | Progress Note - Hospitalist ---
Subjective HPI/CC On Admission Date Seen by Provider: Oct 27, 2021 Time Seen by Provider: 11:10 Admisison Planning May Need Admission (Planning): 08:00 (JAVIER ORDONEZ MD) Progress Progress Note #1: Time: 08:11 Progress Note 51-year-old male presents to the emergency department with his parents chief complaint of increasing shortness of breath, cough, body aches headache, nausea vomiting and diarrhea. Tells us initially that he was seen by [facility] 2 or 3 days ago, tested negative for Covid. Later his father contributes to the history stating that the patient was in fact told that he had pneumonia and was started on an antibiotic however the patient cannot recall what that was when asked. Patient states that he does not and has not ever smoked. He does not work around fumes or smoke. He states his cough is nonproductive. Has had profoundly severe shortness of breath with exertion over the last 24 hours. Takes medication for cholesterol and hypertension although did not take his medicine for hypertension this morning. Denies known sick contacts with Covid. Is not vaccinated. No history of blood clot in family or himself. No recent prolonged immobility or travel. No pain or swelling in his lower extremities. No recent black or bloody stool. Complains that his heart is "racing". Room air sats in the 70s on arrival to the emergency department. Still at 88 to 89% on 12 L per nasal cannula. Patient is noted to have fine rales at the bases bilaterally, moderate respiratory distress. No swelling in his lower extremities. No tenderness in the calves, negative Homans bilaterally. No rashes. Soft nontender abdomen. Dry oral mucosa. Sepsis work-up initiated with Covid and influenza testing. D-dimer pending. Chest x-ray pending. Patient is started on Vapotherm per respiratory therapy. Subjective/Events-last exam No major changes Trach and PEG tube likely will be required Updated Dr. Vang his brother Checked meds and labs Objective Exam Vital Signs Vital Signs Date Time Temp Pulse Resp B/P (MAP) Pulse Ox O2 Delivery O2 Flow Rate FiO2 10/27/21 19:18 58 26 96 60 10/27/21 18:00 140/67 (91) Mechanical Ventilator 60.00 10/27/21 12:00 36.2 Capillary Refill : Less Than 3 Seconds General Appearance: No Apparent Distress, WD/WN, Chronically ill, Other (Sedated and intubated) Respiratory: Crackles, Decreased Breath Sounds Cardiovascular: Regular Rate, Rhythm Results/Procedures Lab Laboratory Tests 10/27/21 03:30 Patient resulted labs reviewed. Assessment/Plan Assessment and Plan Assess & Plan/Chief Complaint Assessment: Acute hypoxic respiratory previously BiPAP dependent then status post acute respiratory failure 10/18/2021 status post emergently intubated and right-sided pneumothorax required chest tube placement by Dr. WOLFE with central line status post cardiac arrest x2 with ROSC after 20 minutes of compressions and 6 rounds of epinephrine status post new onset atrial fibrillation with rapid ventricular response status post amiodarone consulting cardiology status post cardioversion due to lack of resolution with IV antiarrhythmics currently off pressors Thora vent right anterior chest wall placed by Dr. Rodriguez on 10/21/2021 COVID-19 pneumonia DVT on anticoagulation Lung mass seen incidentally on CT scan Right-sided chest pain musculoskeletal type Hypertension Plan: BiPAP Vapotherm Anticoagulation 10/14/2021: Supportive care BiPAP 10/15/2021: Supportive care BiPAP Vapotherm Covid protocol meds High risk for intubation 10/16/2021: Complex case Continues to be high risk for intubation Pain control 10/17/2021: BiPAP Max Vapotherm Aggressive IV medication 10/18/2021: Status post cardiac arrest and emergently intubated and with right-sided chest tube and 3 pressors with A. fib and RVR 10/19/2021: Appreciate cardiology, eICU, Dr. WOLFE management yesterday 10/20/2021: Appreciate cardiology eICU for vent management Updated family 10/21/2021: Supportive care Vent management appreciated Osmin Diana Eliquis 10/22/2021: Supportive care Reviewed all meds Still critical illness 10/23/2021: Ventilator management appreciated Supportive care 10/24/2021: [place] referral Supportive care Prognosis poor 10/25/2021: Poor prognosis Supportive care 10/26/2021: Day #9 on vent No significant changes 10/27/2021: Day #10 on ventilator Trach and PEG tube likely required Critical Care Ventilator Management DUSTIN IBRAHIM DO Oct 27, 2021 06:00
--- NOTE | 2021-10-27 06:58 | Diagnostic Imaging Report ---
HISTORY: COVID positive, ventilated. TECHNIQUE: Frontal view the chest COMPARISON: 10/24/2021 FINDINGS: Marked airspace opacities are seen bilaterally, right greater than left. Aeration is unchanged since the prior exam. The right central line tip projects over the low SVC. A chest tube is noted in the right lung apex and unchanged in position. The endotracheal tube measures about 8.5 cm above the margy. The enteric tube is at the stomach. No large effusion or pneumothorax is seen. The cardiac silhouette is normal in size. IMPRESSION: 1. Marked airspace opacities bilaterally, right greater than left, stable since the prior exam. 2. The endotracheal tube is about 8.5 cm above the margy and could be advanced 3 cm. Other tubes and lines appear stable. Report given to (Araceli) at 6:56 AM 10/27/2021/cb Dictated by: Dictated on workstation # [id number]
[2021-10-27] MEDS ORDERED: amLODIPine 5 MG (NORVASC) TAB PO SCH (09:00)
[2021-10-27] MEDS ORDERED: lisINopril 40 MG (PRINIVIL) TABLET PO SCH (09:00)
[2021-10-27] MEDS ORDERED: meTOproloL SUCCINATE 50 MG (TOPROL XL) TAB PO SCH (09:00)
[2021-10-27] MEDS: ANIDULAFUNGIN INJECTION 100 MG in NS (IVPB) 100 ML IV SCH (09:39)
[2021-10-27] MEDS: NOREPINEPHRINE 8 MG/250 ML 250 ML IV SCH ×2 (09:40→16:30)
[2021-10-27] MEDS: AMIODARONE 200 MG (CORDARONE) TAB PO SCH ×2 (09:40→20:14)
[2021-10-27] MEDS: ACYCLOVIR 400 MG TABLET (ZOVIRAX) PO SCH ×2 (09:40→17:35)
[2021-10-27] MEDS: APIXABAN 5 MG (ELIQUIS) TABLET PO SCH ×2 (09:40→20:14)
[2021-10-27] MEDS: LIDOCAINE 4% (SALONPAS) PATCH TOP SCH (09:41)
[2021-10-27] MEDS: PANTOPRAZOLE 40 MG (PROTONIX) VIAL IV SCH (09:53)
--- NOTE | 2021-10-27 10:12 | Cardiology Progress Note ---
Progress Note-Cardiology Events since last exam Date Seen by Provider: Oct 27, 2021 Time Seen by Provider: 10:09 Events since last exam I am following him due to atrial fibrillation. He remains in the intensive care unit intubated and sedated. I did not see the patient due to his Covid status. I did speak with his nurse of today. He remains on norepinephrine infusion due to low blood pressures. He has not been receiving amlodipine, metoprolol or lisinopril which have been ordered for hypertension. He has remained in sinus rhythm on oral amiodarone. Certain portions of this document may have been dictated utilizing voice recognition technology. Inherent to this technology, typographical and gramma tical errors may exist. As much as I am diligent to identify and correct these mistakes, some errors may remain in the document. Vitals Last set of Vitals Signs Vital Signs 10/27/21 10/27/21 07:40 09:00 Pulse 55 Resp 26 B/P (MAP) 164/78 (106) Pulse Ox 97 O2 Delivery Mechanical Ventilator O2 Flow Rate 70.00 FiO2 70 Labs Labs Laboratory Tests 10/27/21 03:30 Exam Vital Signs Vital Signs Date Time Temp Pulse Resp B/P (MAP) Pulse Ox O2 Delivery O2 Flow Rate FiO2 10/27/21 09:00 55 26 164/78 (106) 97 Mechanical Ventilator 70.00 10/27/21 08:00 36.0 10/27/21 07:40 70 Physical Exam I did not see the patient due to his Covid status. Labs Laboratory Tests Test 10/26/21 11:32 10/26/21 18:15 10/27/21 03:30 Range/Units Glucometer 113 H 120 H 70-110 MG/DL White Blood Count 9.9 4.3-11.0 10^3/uL Red Blood Count 3.43 L 4.30-5.52 10^6/uL Hemoglobin 9.8 L 13.3-17.7 g/dL Hematocrit 31 L 40-54 % Mean Corpuscular Volume 91 80-99 fL Mean Corpuscular Hemoglobin 29 25-34 pg Mean Corpuscular Hemoglobin Concent 31 L 32-36 g/dL Red Cell Distribution Width 15.6 H 10.0-14.5 % Platelet Count 201 130-400 10^3/uL Mean Platelet Volume 10.6 9.0-12.2 fL Immature Granulocyte % (Auto) 5 % Neutrophils (%) (Auto) 72 42-75 % Lymphocytes (%) (Auto) 9 L 12-44 % Monocytes (%) (Auto) 12 0-12 % Eosinophils (%) (Auto) 2 0-10 % Basophils (%) (Auto) 0 0-10 % Neutrophils # (Auto) 7.2 1.8-7.8 10^3/uL Lymphocytes # (Auto) 0.9 L 1.0-4.0 10^3/uL Monocytes # (Auto) 1.2 H 0.0-1.0 10^3/uL Eosinophils # (Auto) 0.2 0.0-0.3 10^3/uL Basophils # (Auto) 0.0 0.0-0.1 10^3/uL Immature Granulocyte # (Auto) 0.5 H 0.0-0.1 10^3/uL Blood Gas Puncture Site ARTLINE Blood Gas Patient Temperature 36 Arterial Blood pH 7.42 7.37-7.43 Arterial Blood Partial Pressure CO2 53 H 35-45 MMHG Arterial Blood Partial Pressure O2 64 L 79-93 MMHG Arterial Blood HCO3 34 H 23-27 MMOL/L Arterial Blood Total CO2 35.5 H 21.0-31.0 MMOL/L Arterial Blood Oxygen Saturation 94 94-100 % Arterial Blood Base Excess 8.9 H -2.5-2.5 MMOL/L To Test ARTLINE Blood Gas Ventilator Setting YES Blood Gas Inspired Oxygen 55% Sodium Level 140 135-145 MMOL/L Potassium Level 4.1 3.6-5.0 MMOL/L Chloride Level 102 98-107 MMOL/L Carbon Dioxide Level 30 21-32 MMOL/L Anion Gap 8 5-14 MMOL/L Blood Urea Nitrogen 14 7-18 MG/DL Creatinine 0.58 L 0.60-1.30 MG/DL Estimat Glomerular Filtration Rate 147 BUN/Creatinine Ratio 24 Glucose Level 134 H 70-105 MG/DL Calcium Level 7.9 L 8.5-10.1 MG/DL Corrected Calcium 9.2 8.5-10.1 MG/DL Phosphorus Level 3.2 2.3-4.7 MG/DL Magnesium Level 2.1 1.6-2.4 MG/DL Total Bilirubin 0.3 0.1-1.0 MG/DL Aspartate Amino Transf (AST/SGOT) 15 5-34 U/L Alanine Aminotransferase (ALT/SGPT) 21 0-55 U/L Alkaline Phosphatase 90 40-136 U/L Total Protein 5.3 L 6.4-8.2 GM/DL Albumin 2.4 L 3.2-4.5 GM/DL Triglycerides Level 201 H <150 MG/DL Diagnosis/Problems Diagnosis/Problems (1) Paroxysmal atrial fibrillation Assessment & Plan: This was a new finding on this patient during this admission. This was most most likely brought on by the resuscitative efforts during his cardiopulmonary arrest and possibly Covid infection. Since his cardioversion on 10/18, he remains in sinus rhythm and sinus tachycardia on oral amiodarone. I decreased the dose of amiodarone on 10/26/2021. This will need to be tapered over time. Since the atrial fibrillation was most likely brought on by his cardiopulmonary arrest and lasted less than 48 hours, he does not necessarily need anticoagulation for the atrial fibrillation. However, he is on apixaban due to left lower extremity deep venous thrombosis. (2) Primary hypertension Assessment & Plan: He has been intermittently on intravenous norepinephrine due to recurrent shock. The medication list in [facility] was somewhat confusing. I thought he had been receiving antihypertensive medication but the nurse from today says he has not received any antihypertensive medication. I will discontinue all antihypertensive medications to help avoid confusion. We can resume these once his blood pressure is better. (3) Mixed hyperlipidemia Assessment & Plan: Continue statin medication. (4) Acute respiratory failure due to COVID-19 Status: Acute Assessment & Plan: The hospitalist and eICU are managing the ventilator. (5) Deep vein thrombosis of left lower extremity Assessment & Plan: Possibly related to Covid infection. He continues on apixaban. KAIT MORENO JR, MD Oct 27, 2021 10:12
--- NOTE | 2021-10-27 10:13 | Tele-ICU Progress Note ---
Subjective Date Seen by a Provider: Oct 27, 2021 Time Seen by a Provider: 10:12 Subjective/Events-last exam Patient clinically did not change much he is still requiring Levophed. Chest x- ray reviewed and showed bilateral extensive infiltrates. ET tube advanced by 3 cm as suggested by the radiologist. Chest tube is in good place. Chest tube has no fluctuation per RN. Overall no significant improvement seen and his pr ognosis is very poor. Discussed with the RN. Review of Systems ros per rn Sepsis Event Evaluation Height, Weight, BMI Height: 5'10.00" Weight: 182lbs. 0.0oz. 82.158082nv; 25.79 BMI Method: Exam Exam Patient acknowledged, consented, and participated in this virtual visit which was conducted using real time audio/video Vital Signs Date Time Temp Pulse Resp B/P (MAP) Pulse Ox O2 Delivery O2 Flow Rate FiO2 10/27/21 09:00 55 26 164/78 (106) 97 Mechanical Ventilator 70.00 10/27/21 08:00 36.0 10/27/21 08:00 58 26 125/61 (82) 97 Mechanical Ventilator 70.00 10/27/21 07:40 62 26 98 70 10/27/21 07:00 58 10/27/21 07:00 58 26 147/70 (95) 96 Mechanical Ventilator 70.00 10/27/21 06:00 56 26 146/71 (96) 96 Mechanical Ventilator 70.00 10/27/21 05:00 61 26 131/60 (83) 95 Mechanical Ventilator 70.00 10/27/21 05:00 82 30 90 10/27/21 04:30 95 70 10/27/21 04:22 57 151/71 10/27/21 04:22 57 151/71 10/27/21 04:00 63 26 115/51 (72) 95 Mechanical Ventilator 70.00 10/27/21 04:00 92 Mechanical Ventilator 70 10/27/21 04:00 36.0 Mechanical Ventilator 70.00 10/27/21 03:00 57 26 151/71 (97) 94 Mechanical Ventilator 55.00 10/27/21 02:22 56 26 94 55 10/27/21 02:11 58 126/59 10/27/21 02:00 57 26 138/64 (88) 94 Mechanical Ventilator 55.00 10/27/21 01:00 62 10/27/21 01:00 64 26 115/53 (73) 92 Mechanical Ventilator 55.00 10/27/21 00:00 58 26 132/62 (85) 92 Mechanical Ventilator 55.00 10/27/21 00:00 92 Mechanical Ventilator 55 10/26/21 23:00 58 26 126/59 (81) 92 Mechanical Ventilator 55.00 10/26/21 22:53 36.7 10/26/21 22:00 61 26 125/60 (81) 92 Mechanical Ventilator 55.00 10/26/21 21:08 60 26 92 55 10/26/21 21:00 62 26 122/61 (81) 92 Mechanical Ventilator 55.00 10/26/21 20:44 56 133/64 10/26/21 20:44 56 133/64 10/26/21 20:00 66 26 132/65 (87) 93 Mechanical Ventilator 55.00 10/26/21 20:00 93 Mechanical Ventilator 55 10/26/21 19:56 36.9 10/26/21 19:00 60 10/26/21 19:00 58 26 128/62 (84) 93 Mechanical Ventilator 55.00 10/26/21 18:46 56 26 93 55 10/26/21 18:00 60 26 113/54 (73) 93 Mechanical Ventilator 55.00 10/26/21 18:00 63 26 99/49 10/26/21 18:00 63 99/49 10/26/21 17:00 63 26 99/49 (66) 92 Mechanical Ventilator 55.00 10/26/21 16:11 91 Mechanical Ventilator 55 10/26/21 16:00 36.5 10/26/21 16:00 60 26 130/61 (84) 95 Mechanical Ventilator 55.00 10/26/21 15:35 60 26 93 55 10/26/21 15:00 58 26 144/68 (93) 97 Mechanical Ventilator 55.00 10/26/21 14:21 65 132/60 10/26/21 14:20 65 132/60 10/26/21 14:00 65 26 132/60 (84) 97 Mechanical Ventilator 55.00 10/26/21 13:00 60 26 171/77 (108) 96 Mechanical Ventilator 55.00 10/26/21 12:30 56 10/26/21 12:00 56 26 150/65 (93) 95 Mechanical Ventilator 55.00 10/26/21 11:38 91 Mechanical Ventilator 55 10/26/21 11:30 36.7 10/26/21 11:08 66 26 92 55 10/26/21 11:00 63 26 118/62 (80) 94 Mechanical Ventilator 55.00 I & O 10/27/21 07:00 Intake Total 3200 ml Output Total 1676 ml Balance 1524 ml Height & Weight Height: 5'10.00" Weight: 182lbs. 0.0oz. 82.230414jf; 25.79 BMI Method: General Appearance: No Apparent Distress, WD/WN, Chronically ill, Other (Sedate d and intubated) HEENT: PERRL/EOMI, Other (ET tube in place) Respiratory: No Accessory Muscle Use, No Respiratory Distress, Crackles, Decreased Breath Sounds Cardiovascular: Regular Rate, Rhythm, No Edema Capillary Refill: Less Than 3 Seconds Peripheral Pulses: 1+ Dorsalis Pedis (R), 1+ Left Dors-Pedis (L); 2+ Radial Pulses (R), 2+ Radial Pulses (L) Gastrointestinal: non tender, soft Extremity: Normal Capillary Refill Neurologic/Psychiatric: No Alert, No Oriented x3; Other (on vent/sedated) Results Lab Laboratory Tests 10/26/21 03:55 10/27/21 03:30 Radiology NAME: REJI MEJIA [facility] REC#: [id number] PT STATUS: ADM IN : 1970 PHYSICIAN: GAYLE JOHANSEN DO ADMIT DATE: 10/06/21/ICU Signed Date of Exam:10/27/21 CHEST 1 VIEW, AP/PA ONLY HISTORY: COVID positive, ventilated. TECHNIQUE: Frontal view the chest COMPARISON: 10/24/2021 FINDINGS: Marked airspace opacities are seen bilaterally, right greater than left. Aeration is unchanged since the prior exam. The right central line tip projects over the low SVC. A chest tube is noted in the right lung apex and unchanged in position. The endotracheal tube measures about 8.5 cm above the margy. The enteric tube is at the stomach. No large effusion or pneumothorax is seen. The cardiac silhouette is normal in size. IMPRESSION: 1. Marked airspace opacities bilaterally, right greater than left, stable since the prior exam. 2. The endotracheal tube is about 8.5 cm above the margy and could be advanced 3 cm. Other tubes and lines appear stable. Report given to (Araceli) at 6:56 AM 10/27/2021/cb Dictated by: Dictated on workstation # [id number] Dict: 10/27/21612 Trans: 10/27/21 07 ACB [id number] Interpreted by: MADDIE JI MD Electronically signed by: MADDIE JI MD 10/27/21 0705 Assessment/Plan Assessment/Plan (Tele-ICU Physician , Progress Note ) Available chart/ vitals / labs / Images reviewed Video assessment done using teleICU camera, rest of exam as per RN Discussed with RN , EXAM PER RN Events overnight : Afebrile I/O = negative 5 l Drips: Pressors: LEVO Sedation gtt: ( RASS -2 ) follows commands with decrease sedation VENT SETTINGS and ABG reviewed Not candidate for SBT today REVIEWED Cardiovascular Stability / Sedation Score / FI02/PEEP / ABG / CXR Consultants: Hospital course: (10/08) 77 y/o female admitted for COVID+, transfer from other facility - , VT 20L 70% 10/09 changed to BIPAP 10/10 Bipap 100% _ precedex 0.4 10/11 - VT 35/80% prn bipap , precedex 0.4 - LEFT LE DVT 10/14 - VT 60L 75% , , BIPAP 60%- precedex 1.0, STARTED ZOSYN 10/15 - VT 40 100% , worsenign cxr on right , worsenign right sided pain 10/18 - card/pulm arrest - ROSC , PTX , chest tube on LEFT 10/18 - a fin RVR - cardioverted 10/19 - peep 18 60%, 10/20 - Thoravent on ADDITION to chest tube - both with leak, LEVO 10/21 - fio2 40% peep 5, follows commands 10/23 - fio2 75% peep 5 - BOTH CHEST TUBE sWITHOUT leak , tidal variations and minimal fluid drainage - fio2 70 % + 5 - CT CHEST with small PTX and large infitrate RLL 10/25- fio2 60 % +5 stareted Merrem and eraxis 10/26 VENT 375/26/60%/PEEP5. STILL ON LEVOPHED. ? CHEST TUBE CLOGGED. BEING FLUSHED. NOT READY FOR SBT. 10/27/21 vent. 375/26/60/5 . on levo. not a candidate for sbt. A/P AHRF / ARDS due to severe COVID19 ( CTA neg for pe 10/07 - in other facility , reportedly - did not see report personally - INTUBATED - 10/18 - AC 26 - 375 -50 % fio2 peep 8 - CXR worsenign -R>>L - BOTH CHEST TUBE WITHOUT leak , no tidal variations and minimal fluid drainage CT chest 10/24 -with small PTX and large infitrate RLL- card/pulm arrest -10/18 ROSC , PTX - CTH negative 10/19 -follows commands as per curriculum and assessment director post arrest ( prop 50 , fent 200 , verced 5 ) Shock - levo intermittently [id number]/COVID-19 PNA ( Symptom onset unknown now DX unvaccinted --Dexamethasone - chanhged to 10 qd with wheexzng 10/10- 10/20 - OFF STEROIDS NOW -Hypercoagulable state Full dose lovenox with DVT and PE Pneumomediastinum on ct 10/06- not seen on cxr f/up 10/18 - PTX , RIGHT - chest tube in , large airleak -Thoravent on ADDITION to chest tube 10/20 - both without leak now - PER SX a fib RVR - cardioverted - 10/18 - in sinus , s/p amio bolus , on PO amio now RLL PNA - started on Zosyn 10/14 - > - resumed on 10/19 -> 10/24 - CT with significant infiltrate on RLL and secretiong is ETT - needs go back on abx - 10/25 -resent cx, stareted Merrem and eraxis, might needs bronch Left lower extremity DVT dx 10/12 - small PE on CT 10/19 - fill dose lovenox - >eliquis 10/21 Hyperglycemia - ISS , close f/up on steroids Lines : periph ( Central Line Necessity Reviewed) Hurd: 10/08 OG: Nutrition: TF to start 10/19 Analgesia: Anxiety/ delirium = VTE Prophylaxis: steve 80 bid- > eliquis Stress Ulcer Prophylaxis: po Plans in collaboration with bedside consultants and IM MDs. Discussed with RN to reach out if any questions or concerns A total of 30 minutes of critical care time was devoted to this patient today, required to treat and/or prevent further deterioration of critical care condition ( as above ) . Critical Care: Critically Ill Patient Time spent with patient (mins): 30 MIRNA TOBAR MD Oct 27, 2021 10:13
[2021-10-27] MEDS: AtorvaSTATin TABLET 10 MG TABLET PO SCH (20:13)
[2021-10-27] MEDS: traZODone 100 MG (DESYREL) TAB PO SCH (20:13)
[2021-10-27] MEDS: traZODone 50 MG (DESYREL) TAB PO SCH (20:14)
[2021-10-28] VITALS (29 sets, daily range): BP systolic 93–166; BP diastolic 40–76
[2021-10-28] MEDS: inSUlin ASPART (NovoLOG) 1 UNIT/0.01 ML (CHARGE PER UNIT) SQ SCH ×4 (00:08→17:23)
[2021-10-28] MEDS: fentaNYL DRIP PRE-MIX 250 ML IV SCH ×6 (01:43→21:36)
[2021-10-28] MEDS: RT-ALBUTEROL HFA 8.5 GM INHALER IH SCH ×4 (02:36→22:47)
[2021-10-28] MEDS: MEROPENEM 1,000 MG in NS (IVPB) 100 ML IV SCH ×3 (03:16→17:22)
[2021-10-28 04:09] LABS: ABG BASE EXCESS 8.7 MMOL/L (-2.5-2.5); ABG OXYGEN SATURATION 86 % (94-100); ABG PCO2 56 MMHG (35-45); ABG PH 7.39 (7.37-7.43); ABG PO2 50 MMHG (79-93); ABG TCO2 35.9 MMOL/L (21.0-31.0); ALLENS TEST ARTLINE; PATIENT TEMP 37.5; VENTILATOR YES
[2021-10-28 04:24] LABS: ALBUMIN 2.3 GM/DL (3.2-4.5)
[2021-10-28 04:25] LABS: CALCIUM 7.9 MG/DL (8.5-10.1)
[2021-10-28 04:26] LABS: TOTAL PROTEIN 5.4 GM/DL (6.4-8.2)
[2021-10-28 04:28] LABS: BILIRUBIN,TOTAL 0.3 MG/DL (0.1-1.0)
[2021-10-28 04:30] LABS: CREATININE SERUM 0.61 MG/DL (0.60-1.30); PHOSPHORUS 3.4 MG/DL (2.3-4.7)
[2021-10-28 04:34] LABS: MAGNESIUM 2.2 MG/DL (1.6-2.4)
[2021-10-28] MEDS: DexMEDEtomidine 250 ML DRIP 250 ML IV SCH ×3 (04:36→21:37)
[2021-10-28] MEDS: POTASSIUM CL 10MEQ/50ML IVPB 50 ML IV SCH (04:47)
[2021-10-28] MEDS: KCL 20 MEQ TAB (K-DUR) PO SCH (04:52)
[2021-10-28] MEDS: MAGNESIUM 1 GM/100 ML IVPB 100 ML IV SCH (04:52)
[2021-10-28 05:23] LABS: BASOPHILS % (AUTO) 0 % (0-10); EOSINOPHILS # (AUTO) 0.2 10^3/uL (0.0-0.3); EOSINOPHILS % (AUTO) 3 % (0-10); HEMATOCRIT 31 % (40-54); HEMOGLOBIN 9.4 g/dL (13.3-17.7); LYMPHOCYTES # (AUTO) 1.1 10^3/uL (1.0-4.0); LYMPHOCYTES % (AUTO) 15 % (12-44); MEAN CORPUSCULAR HEMOGLOBIN 28 pg (25-34); MEAN CORPUSCULAR HGB CONC 31 g/dL (32-36); MEAN CORPUSCULAR VOLUME 92 fL (80-99); MEAN PLATELET VOLUME 11.2 fL (9.0-12.2); MONOCYTES # (AUTO) 0.9 10^3/uL (0.0-1.0); MONOCYTES % (AUTO) 12 % (0-12); NEUTROPHILS # (AUTO) 5.1 10^3/uL (1.8-7.8); NEUTROPHILS % (AUTO) 66 % (42-75); PLATELET COUNT 204 10^3/uL (130-400); WHITE BLOOD COUNT 7.8 10^3/uL (4.3-11.0)
[2021-10-28] MEDS ORDERED: KCL 20 MEQ TAB (K-DUR) PO SCH (06:00)
[2021-10-28] MEDS ORDERED: MAGNESIUM 1 GM/100 ML IVPB 100 ML IV SCH (06:00)
[2021-10-28] MEDS ORDERED: POTASSIUM CL 10MEQ/50ML IVPB 50 ML IV SCH (06:00)
[2021-10-28] MEDS: NOREPINEPHRINE 8 MG/250 ML 250 ML IV SCH (06:45)
--- NOTE | 2021-10-28 07:22 | Progress Note - Hospitalist ---
Subjective HPI/CC On Admission Date Seen by Provider: Oct 28, 2021 Time Seen by Provider: 11:15 Admisison Planning May Need Admission (Planning): 08:00 (JAVIER ORDONEZ MD) Progress Progress Note #1: Time: 08:11 Progress Note 51-year-old male presents to the emergency department with his parents chief complaint of increasing shortness of breath, cough, body aches headache, nausea vomiting and diarrhea. Tells us initially that he was seen by [facility] 2 or 3 days ago, tested negative for Covid. Later his father contributes to the history stating that the patient was in fact told that he had pneumonia and was started on an antibiotic however the patient cannot recall what that was when asked. Patient states that he does not and has not ever smoked. He does not work around fumes or smoke. He states his cough is nonproductive. Has had profoundly severe shortness of breath with exertion over the last 24 hours. Takes medication for cholesterol and hypertension although did not take his medicine for hypertension this morning. Denies known sick contacts with Covid. Is not vaccinated. No history of blood clot in family or himself. No recent prolonged immobility or travel. No pain or swelling in his lower extremities. No recent black or bloody stool. Complains that his heart is "racing". Room air sats in the 70s on arrival to the emergency department. Still at 88 to 89% on 12 L per nasal cannula. Patient is noted to have fine rales at the bases bilaterally, moderate respiratory distress. No swelling in his lower extremities. No tenderness in the calves, negative Homans bilaterally. No rashes. Soft nontender abdomen. Dry oral mucosa. Sepsis work-up initiated with Covid and influenza testing. D-dimer pending. Chest x-ray pending. Patient is started on Vapotherm per respiratory therapy. Subjective/Events-last exam No major changes Ventilator dependent Trach and PEG needed Checked meds and labs Objective Exam Vital Signs Vital Signs Date Time Temp Pulse Resp B/P (MAP) Pulse Ox O2 Delivery O2 Flow Rate FiO2 10/29/21 05:00 62 88 10/29/21 04:00 Mechanical Ventilator 100 10/29/21 04:00 26 125/60 (81) 100.00 10/29/21 03:18 36.6 Capillary Refill : Less Than 3 Seconds General Appearance: No Apparent Distress, WD/WN, Chronically ill, Thin, Other (Sedated and intubated) Respiratory: Crackles, Decreased Breath Sounds, Rales Cardiovascular: Regular Rate, Rhythm Results/Procedures Lab Laboratory Tests 10/29/21 04:20 Patient resulted labs reviewed. Assessment/Plan Assessment and Plan Assess & Plan/Chief Complaint Assessment: Acute hypoxic respiratory previously BiPAP dependent then status post acute respiratory failure 10/18/2021 status post emergently intubated and right-sided pneumothorax required chest tube placement by Dr. WLOFE with central line status post cardiac arrest x2 with ROSC after 20 minutes of compressions and 6 rounds of epinephrine status post new onset atrial fibrillation with rapid ventricular response status post amiodarone consulting cardiology status post cardioversion due to lack of resolution with IV antiarrhythmics currently off pressors Thora vent right anterior chest wall placed by Dr. Rodriguez on 10/21/2021 COVID-19 pneumonia DVT on anticoagulation Lung mass seen incidentally on CT scan Right-sided chest pain musculoskeletal type Hypertension Plan: BiPAP Vapotherm Anticoagulation 10/14/2021: Supportive care BiPAP 10/15/2021: Supportive care BiPAP Vapotherm Covid protocol meds High risk for intubation 10/16/2021: Complex case Continues to be high risk for intubation Pain control 10/17/2021: BiPAP Max Vapotherm Aggressive IV medication 10/18/2021: Status post cardiac arrest and emergently intubated and with right-sided chest tube and 3 pressors with A. fib and RVR 10/19/2021: Appreciate cardiology, eICU, Dr. WOLFE management yesterday 10/20/2021: Appreciate cardiology eICU for vent management Updated family 10/21/2021: Supportive care Vent management appreciated Osmin Diana Eliquis 10/22/2021: Supportive care Reviewed all meds Still critical illness 10/23/2021: Ventilator management appreciated Supportive care 10/24/2021: [place] referral Supportive care Prognosis poor 10/25/2021: Poor prognosis Supportive care 10/26/2021: Day #9 on vent No significant changes 10/27/2021: Day #10 on ventilator Trach and PEG tube likely required 10/28/2020: Day #11 on ventilator Trach and PEG required Critical Care Critically Ill Patient DUSTIN IBRAHIM DO Oct 28, 2021 07:22
[2021-10-28] MEDS: PANTOPRAZOLE 40 MG (PROTONIX) VIAL IV SCH (08:27)
[2021-10-28] MEDS: ACYCLOVIR 400 MG TABLET (ZOVIRAX) PO SCH ×2 (08:27→17:22)
[2021-10-28] MEDS: LIDOCAINE 4% (SALONPAS) PATCH TOP SCH (08:28)
[2021-10-28] MEDS: APIXABAN 5 MG (ELIQUIS) TABLET PO SCH ×2 (08:28→20:01)
[2021-10-28] MEDS: AMIODARONE 200 MG (CORDARONE) TAB PO SCH ×2 (08:28→20:01)
[2021-10-28] MEDS: ANIDULAFUNGIN INJECTION 100 MG in NS (IVPB) 100 ML IV SCH (09:15)
--- NOTE | 2021-10-28 09:40 | Tele-ICU Progress Note ---
Subjective Date Seen by a Provider: Oct 28, 2021 Time Seen by a Provider: 07:00 Subjective/Events-last exam This virtual visit was conducted using real time audio/video. Thank you for asking us to see this patient for respiratory insufficiency due to Covid pna complicated by R PTX, DVT. Recent events: No output from chest tube. PE: Sedated on vent. VSS. O2 sat 93% on 70%/+5. HEENT: No obvious masses, adenopathy or JVD. Chest: Coarse breath sounds. CV: RRR S1 S2 No murmur or added sounds. Abd: Non-tender. Bowel sounds Y. : Unremarkable. Hurd Y. EXTENSION SERVICE AGENT/psychiatric: Grossly intact. No obvious focal findings. Extremities: No edema. Capillary refill < 3 seconds. Skin: unremarkable. Results: Elevated . Decreased . BG: . CXR: . Available chart/ vitals / labs / images reviewed. Video assessment done using teleICU camera, rest of exam as per RN. A/P: Respiratory insufficiency: Continue present management with vent. Wean O2 as nerissa. Consider tracheostomy. Monitor for increasing oxygenation needs. Critical Care: critically ill patient. Cont. Alb., Levophed, Propofol, Fent., Meropenem, Dex., PPI, Antifungal, Acyclovir, Eliquis, SSI. Discussed with RN Sumaya. Asked RN to reach out to eICU if any questions or concerns later. Time spent with patient/coordination of care with other health professionals (mins): Sepsis Event Evaluation Height, Weight, BMI Height: 5'10.00" Weight: 182lbs. 0.0oz. 82.664302ch; 25.79 BMI Method: Exam Exam Patient acknowledged, consented, and participated in this virtual visit which wa s conducted using real time audio/video Vital Signs Date Time Temp Pulse Resp B/P (MAP) Pulse Ox O2 Delivery O2 Flow Rate FiO2 10/28/21 09:20 Mechanical Ventilator 75.00 10/28/21 09:00 67 26 93/57 (69) 97 Mechanical Ventilator 70.00 10/28/21 08:00 36.4 10/28/21 08:00 60 26 159/63 (95) 93 Mechanical Ventilator 70.00 10/28/21 07:33 59 26 93 70 10/28/21 07:00 60 26 157/62 (93) 94 Mechanical Ventilator 70.00 10/28/21 07:00 61 10/28/21 06:58 Mechanical Ventilator 70.00 10/28/21 06:45 60 155/60 10/28/21 06:00 75 101/64 (76) 94 Mechanical Ventilator 60.00 10/28/21 05:00 80 123/68 (86) 93 Mechanical Ventilator 60.00 10/28/21 04:53 64 89 10/28/21 04:36 65 151/77 10/28/21 04:25 35.7 Mechanical Ventilator 60.00 10/28/21 04:00 93 Mechanical Ventilator 55 10/28/21 04:00 62 26 112/62 (79) 92 Mechanical Ventilator 55.00 10/28/21 03:00 60 26 115/54 (74) 94 Mechanical Ventilator 55.00 10/28/21 02:36 60 26 94 55 10/28/21 02:00 60 26 114/54 (74) 93 Mechanical Ventilator 55.00 10/28/21 01:00 60 10/28/21 01:00 58 26 117/55 (75) 94 Mechanical Ventilator 55.00 10/28/21 00:08 35.9 10/28/21 00:00 96 Mechanical Ventilator 55 10/28/21 00:00 59 26 114/55 (74) 94 Mechanical Ventilator 55.00 10/27/21 23:00 59 26 118/56 (76) 95 Mechanical Ventilator 55.00 10/27/21 22:00 59 26 118/56 (76) 94 Mechanical Ventilator 55.00 10/27/21 21:39 58 26 92 55 10/27/21 21:35 59 125/65 10/27/21 21:34 59 125/60 10/27/21 21:00 58 26 122/58 (79) 95 Mechanical Ventilator 55.00 10/27/21 20:19 35.6 Mechanical Ventilator 55.00 10/27/21 20:00 64 26 116/57 (76) 97 Mechanical Ventilator 60.00 10/27/21 20:00 95 Mechanical Ventilator 55 10/27/21 19:18 58 26 96 60 10/27/21 19:00 60 10/27/21 19:00 61 26 140/70 (93) 96 Mechanical Ventilator 60.00 10/27/21 18:00 59 26 140/67 (91) 94 Mechanical Ventilator 60.00 10/27/21 17:00 62 26 131/62 (85) 95 Mechanical Ventilator 60.00 10/27/21 16:30 59 141/67 10/27/21 16:00 92 Mechanical Ventilator 60 10/27/21 16:00 57 26 150/74 (99) 93 Mechanical Ventilator 60.00 10/27/21 15:14 Mechanical Ventilator 60.00 10/27/21 15:11 59 26 94 60 10/27/21 15:00 56 26 152/75 (100) 97 Mechanical Ventilator 70.00 10/27/21 14:00 58 26 131/63 (85) 96 Mechanical Ventilator 70.00 10/27/21 13:00 63 26 129/62 (84) 95 Mechanical Ventilator 70.00 10/27/21 13:00 64 10/27/21 12:00 64 28 168/89 (115) Mechanical Ventilator 70.00 10/27/21 12:00 36.2 10/27/21 12:00 92 Mechanical Ventilator 70 10/27/21 11:33 55 10/27/21 11:00 64 26 133/63 (86) 96 Mechanical Ventilator 70.00 10/27/21 10:42 64 26 95 65 10/27/21 10:00 61 26 125/57 (79) 96 Mechanical Ventilator 70.00 I & O 10/28/21 07:00 Intake Total 2410 ml Output Total 2225 ml Balance 185 ml Height & Weight Height: 5'10.00" Weight: 182lbs. 0.0oz. 82.468546ko; 25.79 BMI Method: General Appearance: No Apparent Distress, WD/WN, Chronically ill, Other (Sedated and intubated) HEENT: PERRL/EOMI, Other (ET tube in place) Respiratory: Crackles, Decreased Breath Sounds Cardiovascular: Regular Rate, Rhythm Capillary Refill: Less Than 3 Seconds Peripheral Pulses: 1+ Dorsalis Pedis (R), 1+ Left Dors-Pedis (L); 2+ Radial Pu lses (R), 2+ Radial Pulses (L) Gastrointestinal: non tender, soft Extremity: Normal Capillary Refill Neurologic/Psychiatric: No Alert, No Oriented x3; Other (on vent/sedated) Results Lab Laboratory Tests 10/27/21 03:30 10/28/21 03:50 Assessment/Plan Assessment/Plan See free text. Critical Care: Ventilator Management FERDINAND HERNANDEZ MD Oct 28, 2021 09:40
--- NOTE | 2021-10-28 10:41 | Cardiology Progress Note ---
Progress Note-Cardiology Events since last exam Date Seen by Provider: Oct 28, 2021 Time Seen by Provider: 10:40 Events since last exam I am following him due to atrial fibrillation. He remains intubated and sedated in the intensive care unit due to Covid pneumonia. He has not had any recurrent atrial fibrillation. His oxygen status is about the same as it was yesterday. He remains on norepinephrine infusion intermittently. I did not see the patient due to his Covid status. I did speak with his nurse of today. Certain portions of this document may have been dictated utilizing voice recognition technology. Inherent to this technology, typographical and grammatical errors may exist. As much as I am diligent to identify and correct these mistakes, some errors may remain in the document. Vitals Last set of Vitals Signs Vital Signs 10/28/21 10/28/21 10/28/21 12:00 12:15 14:00 Temp 36.5 Pulse 65 Resp 26 B/P (MAP) 115/58 (77) Pulse Ox 92 O2 Delivery Mechanical Ventilator O2 Flow Rate 60.00 FiO2 65 Labs Labs Laboratory Tests 10/28/21 03:50 Exam Vital Signs Vital Signs Date Time Temp Pulse Resp B/P (MAP) Pulse Ox O2 Delivery O2 Flow Rate FiO2 10/28/21 14:00 65 26 115/58 (77) 92 Mechanical Ventilator 60.00 10/28/21 12:15 65 10/28/21 12:00 36.5 Physical Exam I did not examine the patient due to his Covid status. Labs Laboratory Tests Test 10/27/21 17:26 10/28/21 00:03 10/28/21 03:50 10/28/21 11:29 Range/Units Glucometer 105 120 H 105 70-110 MG/DL White Blood Count 7.8 4.3-11.0 10^3/uL Red Blood Count 3.32 L 4.30-5.52 10^6/uL Hemoglobin 9.4 L 13.3-17.7 g/dL Hematocrit 31 L 40-54 % Mean Corpuscular Volume 92 80-99 fL Mean Corpuscular Hemoglobin 28 25-34 pg Mean Corpuscular Hemoglobin Concent 31 L 32-36 g/dL Red Cell Distribution Width 15.4 H 10.0-14.5 % Platelet Count 204 130-400 10^3/uL Mean Platelet Volume 11.2 9.0-12.2 fL Immature Granulocyte % (Auto) 4 % Neutrophils (%) (Auto) 66 42-75 % Lymphocytes (%) (Auto) 15 12-44 % Monocytes (%) (Auto) 12 0-12 % Eosinophils (%) (Auto) 3 0-10 % Basophils (%) (Auto) 0 0-10 % Neutrophils # (Auto) 5.1 1.8-7.8 10^3/uL Lymphocytes # (Auto) 1.1 1.0-4.0 10^3/uL Monocytes # (Auto) 0.9 0.0-1.0 10^3/uL Eosinophils # (Auto) 0.2 0.0-0.3 10^3/uL Basophils # (Auto) 0.0 0.0-0.1 10^3/uL Immature Granulocyte # (Auto) 0.3 H 0.0-0.1 10^3/uL Blood Gas Puncture Site RIGHT ART Blood Gas Patient Temperature 37.5 Arterial Blood pH 7.39 7.37-7.43 Arterial Blood Partial Pressure CO2 56 H 35-45 MMHG Arterial Blood Partial Pressure O2 50 L 79-93 MMHG Arterial Blood HCO3 34 H 23-27 MMOL/L Arterial Blood Total CO2 35.9 H 21.0-31.0 MMOL/L Arterial Blood Oxygen Saturation 86 L 94-100 % Arterial Blood Base Excess 8.7 H -2.5-2.5 MMOL/L To Test ARTLINE Blood Gas Ventilator Setting YES Blood Gas Inspired Oxygen 55% Sodium Level 143 135-145 MMOL/L Potassium Level 4.0 3.6-5.0 MMOL/L Chloride Level 103 98-107 MMOL/L Carbon Dioxide Level 31 21-32 MMOL/L Anion Gap 9 5-14 MMOL/L Blood Urea Nitrogen 12 7-18 MG/DL Creatinine 0.61 0.60-1.30 MG/DL Estimat Glomerular Filtration Rate 138 BUN/Creatinine Ratio 20 Glucose Level 112 H 70-105 MG/DL Calcium Level 7.9 L 8.5-10.1 MG/DL Corrected Calcium 9.3 8.5-10.1 MG/DL Phosphorus Level 3.4 2.3-4.7 MG/DL Magnesium Level 2.2 1.6-2.4 MG/DL Total Bilirubin 0.3 0.1-1.0 MG/DL Aspartate Amino Transf (AST/SGOT) 15 5-34 U/L Alanine Aminotransferase (ALT/SGPT) 18 0-55 U/L Alkaline Phosphatase 101 40-136 U/L Total Protein 5.4 L 6.4-8.2 GM/DL Albumin 2.3 L 3.2-4.5 GM/DL Diagnosis/Problems Diagnosis/Problems (1) Paroxysmal atrial fibrillation Assessment & Plan: This was a new finding on this patient during this admission. This was most most likely brought on by the resuscitative efforts during his cardiopulmonary arrest and possibly Covid infection. Since his cardioversion on 10/18, he remains in sinus rhythm and sinus tachycardia on oral amiodarone. I decreased the dose of amiodarone on 10/26/2021. This will need to be tapered over time. Since the atrial fibrillation was most likely brought on by his cardiopulmonary arrest and lasted less than 48 hours, he does not necessarily need anticoagulation for the atrial fibrillation. However, he is on apixaban due to left lower extremity deep venous thrombosis. (2) Primary hypertension Assessment & Plan: He has been intermittently on intravenous norepinephrine due to recurrent shock. The medication list in [facility] was somewhat confusing. I discontinued his antihypertensive medication until he is off vasopressors. (3) Mixed hyperlipidemia Assessment & Plan: Continue statin medication. (4) Acute respiratory failure due to COVID-19 Status: Acute Assessment & Plan: The hospitalist and eICU are managing the ventilator. (5) Deep vein thrombosis of left lower extremity Assessment & Plan: Possibly related to Covid infection. He continues on apixaban. KAIT MORENO JR, MD Oct 28, 2021 10:41
[2021-10-28] MEDS: PROPOFOL DRIP (ICU) 100 ML IV SCH ×4 (12:18→20:00)
[2021-10-28] MEDS: ALPRAZolam 0.5 MG (XANAX) TAB PO PRN ×2 (13:37→20:01)
--- NOTE | 2021-10-28 14:28 | Progress Note - Surgery ---
Subjective Time Seen by a Provider: 13:02 Subjective/Events-last exam Pt seen and examined, intubated and sedated. Review of Systems unable to obtain, pt intubated Objective Exam Vital Signs Date Time Temp Pulse Resp B/P (MAP) Pulse Ox O2 Delivery O2 Flow Rate FiO2 10/28/21 13:31 69 10/28/21 13:00 73 26 101/56 (71) 92 Mechanical Ventilator 60.00 10/28/21 12:55 65 10/28/21 12:24 Mechanical Ventilator 60.00 10/28/21 12:19 67 167/70 10/28/21 12:18 67 167/70 10/28/21 12:15 95 Mechanical Ventilator 65 10/28/21 12:00 65 26 157/66 (96) 94 Mechanical Ventilator 65.00 10/28/21 12:00 36.5 10/28/21 11:00 58 16 138/61 (86) 96 Mechanical Ventilator 65.00 10/28/21 10:43 Mechanical Ventilator 65.00 10/28/21 10:33 57 26 98 65 10/28/21 10:00 58 26 156/69 (98) 98 Mechanical Ventilator 75.00 10/28/21 09:20 Mechanical Ventilator 75.00 10/28/21 09:00 67 26 93/57 (69) 97 Mechanical Ventilator 70.00 10/28/21 08:00 36.4 10/28/21 08:00 60 26 159/63 (95) 93 Mechanical Ventilator 70.00 10/28/21 08:00 95 Mechanical Ventilator 70 10/28/21 07:33 59 26 93 70 10/28/21 07:00 60 26 157/62 (93) 94 Mechanical Ventilator 70.00 10/28/21 07:00 61 10/28/21 06:58 Mechanical Ventilator 70.00 10/28/21 06:45 60 155/60 10/28/21 06:00 75 101/64 (76) 94 Mechanical Ventilator 60.00 10/28/21 05:00 80 123/68 (86) 93 Mechanical Ventilator 60.00 10/28/21 04:53 64 89 10/28/21 04:36 65 151/77 10/28/21 04:25 35.7 Mechanical Ventilator 60.00 10/28/21 04:00 93 Mechanical Ventilator 55 10/28/21 04:00 62 26 112/62 (79) 92 Mechanical Ventilator 55.00 10/28/21 03:00 60 26 115/54 (74) 94 Mechanical Ventilator 55.00 10/28/21 02:36 60 26 94 55 10/28/21 02:00 60 26 114/54 (74) 93 Mechanical Ventilator 55.00 10/28/21 01:00 60 10/28/21 01:00 58 26 117/55 (75) 94 Mechanical Ventilator 55.00 10/28/21 00:08 35.9 10/28/21 00:00 96 Mechanical Ventilator 55 10/28/21 00:00 59 26 114/55 (74) 94 Mechanical Ventilator 55.00 10/27/21 23:00 59 26 118/56 (76) 95 Mechanical Ventilator 55.00 10/27/21 22:00 59 26 118/56 (76) 94 Mechanical Ventilator 55.00 10/27/21 21:39 58 26 92 55 10/27/21 21:35 59 125/65 10/27/21 21:34 59 125/60 10/27/21 21:00 58 26 122/58 (79) 95 Mechanical Ventilator 55.00 10/27/21 20:19 35.6 Mechanical Ventilator 55.00 10/27/21 20:00 64 26 116/57 (76) 97 Mechanical Ventilator 60.00 10/27/21 20:00 95 Mechanical Ventilator 55 10/27/21 19:18 58 26 96 60 10/27/21 19:00 60 10/27/21 19:00 61 26 140/70 (93) 96 Mechanical Ventilator 60.00 10/27/21 18:00 59 26 140/67 (91) 94 Mechanical Ventilator 60.00 10/27/21 17:00 62 26 131/62 (85) 95 Mechanical Ventilator 60.00 10/27/21 16:30 59 141/67 10/27/21 16:00 92 Mechanical Ventilator 60 10/27/21 16:00 57 26 150/74 (99) 93 Mechanical Ventilator 60.00 10/27/21 15:14 Mechanical Ventilator 60.00 10/27/21 15:11 59 26 94 60 10/27/21 15:00 56 26 152/75 (100) 97 Mechanical Ventilator 70.00 I & O 10/28/21 07:00 Intake Total 2410 ml Output Total 2225 ml Balance 185 ml Capillary Refill : Less Than 3 Seconds General Appearance: No Apparent Distress, Chronically ill, Other (Sedated and intubated) HEENT: Other (ET tube in place) Respiratory: Crackles, Decreased Breath Sounds, Other (CT in right side) Cardiovascular: Regular Rate, Rhythm Peripheral Pulses: 1+ Dorsalis Pedis (R), 1+ Left Dors-Pedis (L); 2+ Radial Pulses (R), 2+ Radial Pulses (L) Gastrointestinal: soft Extremity: Normal Capillary Refill Neurologic/Psychiatric: No Alert, No Oriented x3; Other (on vent/sedated) Results Lab Laboratory Tests 10/27/21 17:26: Glucometer 105 10/28/21 00:03: Glucometer 120H 10/28/21 03:50: White Blood Count 7.8, Red Blood Count 3.32L, Hemoglobin 9.4L, Hematocrit 31L, Mean Corpuscular Volume 92, Mean Corpuscular Hemoglobin 28, Mean Corpuscular Hemoglobin Concent 31L, Red Cell Distribution Width 15.4H, Platelet Count 204, Mean Platelet Volume 11.2, Immature Granulocyte % (Auto) 4, Neutrophils (%) (Auto) 66, Lymphocytes (%) (Auto) 15, Monocytes (%) (Auto) 12, Eosinophils (%) (Auto) 3, Basophils (%) (Auto) 0, Neutrophils # (Auto) 5.1, Lymphocytes # (Auto) 1.1, Monocytes # (Auto) 0.9, Eosinophils # (Auto) 0.2, Basophils # (Auto) 0.0, Immature Granulocyte # (Auto) 0.3H, Blood Gas Puncture Site RIGHT ART, Blood Gas Patient Temperature 37.5, Arterial Blood pH 7.39, Arterial Blood Partial Pressure CO2 56H, Arterial Blood Partial Pressure O2 50L, Arterial Blood HCO3 34H, Arterial Blood Total CO2 35.9H, Arterial Blood Oxygen Saturation 86L, Arterial Blood Base Excess 8.7H, To Test ARTLINE, Blood Gas Ventilator Setting YES, Blood Gas Inspired Oxygen 55%, Sodium Level 143, Potassium Level 4.0, Chloride Level 103, Carbon Dioxide Level 31, Anion Gap 9, Blood Urea Nit rogen 12, Creatinine 0.61, Estimat Glomerular Filtration Rate 138, BUN/Creatinine Ratio 20, Glucose Level 112H, Calcium Level 7.9L, Corrected Calcium 9.3, Phosphorus Level 3.4, Magnesium Level 2.2, Total Bilirubin 0.3, Aspartate Amino Transf (AST/SGOT) 15, Alanine Aminotransferase (ALT/SGPT) 18, Alkaline Phosphatase 101, Total Protein 5.4L, Albumin 2.3L 10/28/21 11:29: Glucometer 105 Microbiology 10/25/21 Gram Stain - Final, Complete 10/25/21 Sputum Culture - Final, Complete Usual Mixed Pat Staphylococcus aureus Probable Klebsiella/Enterobact 10/14/21 Urine Culture - Final, Complete NO GROWTH 10/14/21 Blood Culture - Final, Complete No growth Assessment/Plan Assessment/Plan Assessment/Plan Covid resp failure with cardiac arrest and right ptx s/p ct. Patient with no air leak we will continue to keep a atrium to suction; however, no output will most likely remove CT tomorrow. Will clamp and repeat CXR tomorrow am. GAYLE JOHANSEN DO Oct 28, 2021 14:28
[2021-10-28] MEDS: MIDAZOLAM DRIP PRE-MIX 100 ML IV SCH (17:22)
[2021-10-28] MEDS: traZODone 100 MG (DESYREL) TAB PO SCH (20:01)
[2021-10-28] MEDS: AtorvaSTATin TABLET 10 MG TABLET PO SCH (20:01)
[2021-10-28] MEDS: traZODone 50 MG (DESYREL) TAB PO SCH (20:01)
[2021-10-29] VITALS (28 sets, daily range): BP systolic 86–143; BP diastolic 49–83
[2021-10-29] MEDS: inSUlin ASPART (NovoLOG) 1 UNIT/0.01 ML (CHARGE PER UNIT) SQ SCH ×5 (00:50→23:43)
[2021-10-29] MEDS: fentaNYL DRIP PRE-MIX 250 ML IV SCH ×7 (01:32→22:47)
[2021-10-29] MEDS: PROPOFOL DRIP (ICU) 100 ML IV SCH ×7 (01:33→21:29)
[2021-10-29] MEDS: RT-ALBUTEROL HFA 8.5 GM INHALER IH SCH ×4 (02:17→22:42)
[2021-10-29] MEDS: MEROPENEM 1,000 MG in NS (IVPB) 100 ML IV SCH ×3 (03:36→17:14)
[2021-10-29] MEDS: NOREPINEPHRINE 8 MG/250 ML 250 ML IV SCH ×2 (04:28→16:19)
[2021-10-29 04:31] LABS: ABG BASE EXCESS 8.5 MMOL/L (-2.5-2.5); ABG OXYGEN SATURATION 90 % (94-100); ABG PCO2 64 MMHG (35-45); ABG PO2 60 MMHG (79-93); ABG TCO2 36.5 MMOL/L (21.0-31.0)
[2021-10-29 04:44] LABS: ABG PH 7.34 (7.37-7.43); ALLENS TEST ARTLINE; INSPIRED O2 100%; VENTILATOR YES
[2021-10-29 04:45] LABS: PATIENT TEMP 35.9
--- NOTE | 2021-10-29 04:46 | Diagnostic Imaging Report ---
EXAMINATION: Chest 1 view HISTORY: Pneumothorax, Covid-19 COMPARISON: 10/27/2021 FINDINGS: Endotracheal tube tip terminates 6 cm above the margy. Gastric tube tip is in the body of the stomach. There is a right-sided chest tube. Right internal jugular central venous catheter tip terminates in the superior vena cava. There is severe bilateral airspace opacities similar to prior exam. No pneumothorax. There are small bilateral pleural effusions. IMPRESSION: 1. Severe bilateral airspace opacities and small pleural effusions similar to prior exam. Dictated by: Dictated on workstation # [id number]
[2021-10-29 04:52] LABS: BASOPHILS # (AUTO) 0.1 10^3/uL (0.0-0.1); BASOPHILS % (AUTO) 1 % (0-10); EOSINOPHILS # (AUTO) 0.2 10^3/uL (0.0-0.3); EOSINOPHILS % (AUTO) 2 % (0-10); HEMATOCRIT 32 % (40-54); HEMOGLOBIN 9.8 g/dL (13.3-17.7); LYMPHOCYTES # (AUTO) 0.9 10^3/uL (1.0-4.0); LYMPHOCYTES % (AUTO) 9 % (12-44); MEAN CORPUSCULAR HEMOGLOBIN 29 pg (25-34); MEAN CORPUSCULAR HGB CONC 31 g/dL (32-36); MEAN CORPUSCULAR VOLUME 93 fL (80-99); MONOCYTES # (AUTO) 1.2 10^3/uL (0.0-1.0); MONOCYTES % (AUTO) 12 % (0-12); NEUTROPHILS # (AUTO) 7.3 10^3/uL (1.8-7.8); NEUTROPHILS % (AUTO) 72 % (42-75); PLATELET COUNT 206 10^3/uL (130-400)
[2021-10-29 06:00] LABS: POTASSIUM 4.3 MMOL/L (3.6-5.0)
[2021-10-29 06:01] LABS: BAND NEUTROPHILS 5 %; CALCIUM 8.1 MG/DL (8.5-10.1); EOSINOPHILS % (MANUAL) 3 %; LYMPHOCYTES % (MANUAL) 8 %; MONOCYTES % (MANUAL) 10 %; NEUTROPHILS % (MANUAL) 74 %
[2021-10-29 06:02] LABS: ELLIPT/OVALOCYTES SLIGHT; SPHEROCYTES SLIGHT
[2021-10-29 06:05] LABS: CREATININE SERUM 0.58 MG/DL (0.60-1.30); PHOSPHORUS 3.7 MG/DL (2.3-4.7)
[2021-10-29] MEDS: DexMEDEtomidine 250 ML DRIP 250 ML IV SCH ×3 (06:51→21:57)
[2021-10-29] MEDS: POTASSIUM CL 10MEQ/50ML IVPB 50 ML IV SCH (06:51)
[2021-10-29] MEDS: MAGNESIUM 1 GM/100 ML IVPB 100 ML IV SCH (06:52)
[2021-10-29] MEDS: KCL 20 MEQ TAB (K-DUR) PO SCH (06:52)
[2021-10-29] MEDS: AMIODARONE 200 MG (CORDARONE) TAB PO SCH ×2 (08:27→21:19)
[2021-10-29] MEDS: ACYCLOVIR 400 MG TABLET (ZOVIRAX) PO SCH ×2 (08:27→17:14)
[2021-10-29] MEDS: APIXABAN 5 MG (ELIQUIS) TABLET PO SCH ×2 (08:27→21:19)
[2021-10-29] MEDS: PANTOPRAZOLE 40 MG (PROTONIX) VIAL IV SCH (08:28)
--- NOTE | 2021-10-29 09:59 | Tele-ICU Progress Note ---
Subjective Date Seen by a Provider: Oct 29, 2021 Time Seen by a Provider: 12:10 Subjective/Events-last exam Mr. Vang today gotten worse requiring FiO2 100% on mechanical ventilation and PEEP as to be increasing to 8. Chest x-ray showed bilateral extensive infiltrate but no pneumothorax. Patient family apparently wants continue to be on full code. He does not look like we are any close to wean him off the ventilator he would need a trach and PEG as soon as possible. Upon reviewing his respirations with a video visit he has a symmetrical chest expansion which I suspect probably due to rib fractures which are not showing up on a routine chest x-ray but he is not a candidate to get rib series or CT of the chest in view of her overall unstable condition Review of Systems ros per rn Sepsis Event Evaluation Height, Weight, BMI Height: 5'10.00" Weight: 182lbs. 0.0oz. 82.972850sl; 25.79 BMI Method: Exam Exam Patient acknowledged, consented, and participated in this virtual visit which was conducted using real time audio/video Vital Signs Date Time Temp Pulse Resp B/P (MAP) Pulse Ox O2 Delivery O2 Flow Rate FiO2 10/29/21 09:36 78 97/52 10/29/21 09:35 79 104/56 10/29/21 08:00 36.6 10/29/21 07:16 63 28 91 100 10/29/21 07:00 63 10/29/21 06:51 62 154/60 10/29/21 06:00 63 26 140/59 (86) 92 Mechanical Ventilator 100.00 10/29/21 05:00 62 88 10/29/21 05:00 67 26 129/51 (77) 93 Mechanical Ventilator 100.00 10/29/21 04:00 92 Mechanical Ventilator 100 10/29/21 04:00 64 26 125/60 (81) 93 Mechanical Ventilator 100.00 10/29/21 03:18 36.6 10/29/21 03:06 26 92 100 10/29/21 03:00 64 26 122/54 (76) 91 Mechanical Ventilator 100.00 10/29/21 02:17 64 28 92 100 10/29/21 02:00 63 26 138/60 (86) 93 Mechanical Ventilator 100.00 10/29/21 01:34 62 134/59 10/29/21 01:33 63 135/59 10/29/21 01:00 61 26 143/61 (88) 92 Mechanical Ventilator 100.00 10/29/21 01:00 61 10/29/21 00:00 62 26 135/59 (84) 92 Mechanical Ventilator 100.00 10/29/21 00:00 93 Mechanical Ventilator 100 10/28/21 23:00 74 26 112/55 (74) 93 Mechanical Ventilator 100.00 10/28/21 22:47 78 26 91 100 10/28/21 22:30 92 Mechanical Ventilator 100.00 10/28/21 22:27 95/54 10/28/21 22:25 Mechanical Ventilator 90.00 10/28/21 22:00 71 26 149/63 (91) 87 Mechanical Ventilator 75.00 10/28/21 21:37 62 131/62 10/28/21 21:00 66 26 107/58 (74) 91 Mechanical Ventilator 75.00 10/28/21 20:00 66 26 117/56 (76) 93 Mechanical Ventilator 75.00 10/28/21 20:00 93 Mechanical Ventilator 75 10/28/21 20:00 66 117/58 10/28/21 19:59 66 127/57 10/28/21 19:34 35.8 10/28/21 19:00 66 26 120/57 (78) 94 Mechanical Ventilator 75.00 10/28/21 19:00 Mechanical Ventilator 75.00 10/28/21 19:00 66 10/28/21 18:40 66 26 95 75 10/28/21 18:00 66 26 130/55 (80) 94 Mechanical Ventilator 60.00 10/28/21 17:22 61 24 147/62 10/28/21 17:00 64 26 131/57 (81) 96 Mechanical Ventilator 60.00 10/28/21 16:15 94 Mechanical Ventilator 65 10/28/21 16:00 60 26 122/63 (82) 95 Mechanical Ventilator 60.00 10/28/21 15:00 57 26 164/69 (100) 95 Mechanical Ventilator 60.00 10/28/21 14:30 88 28 95 70 10/28/21 14:00 65 26 115/58 (77) 92 Mechanical Ventilator 60.00 10/28/21 13:31 69 10/28/21 13:00 73 26 101/56 (71) 92 Mechanical Ventilator 60.00 10/28/21 12:55 65 10/28/21 12:24 Mechanical Ventilator 60.00 10/28/21 12:19 67 167/70 10/28/21 12:18 67 167/70 10/28/21 12:15 95 Mechanical Ventilator 65 10/28/21 12:00 65 26 157/66 (96) 94 Mechanical Ventilator 65.00 10/28/21 12:00 36.5 10/28/21 11:00 58 16 138/61 (86) 96 Mechanical Ventilator 65.00 10/28/21 10:43 Mechanical Ventilator 65.00 10/28/21 10:33 57 26 98 65 10/28/21 10:00 58 26 156/69 (98) 98 Mechanical Ventilator 75.00 I & O 10/29/21 06:59 Intake Total 3200 ml Output Total 3085 ml Balance 115 ml Height & Weight Height: 5'10.00" Weight: 182lbs. 0.0oz. 82.722644rj; 25.79 BMI Method: General Appearance: No Apparent Distress, WD/WN, Chronically ill, Thin, Other (Sedated and intubated) HEENT: Other (ET tube in place) Respiratory: Crackles, Decreased Breath Sounds, Rales Cardiovascular: Regular Rate, Rhythm Capillary Refill: Less Than 3 Seconds Peripheral Pulses: 1+ Dorsalis Pedis (R), 1+ Left Dors-Pedis (L); 2+ Radial Pulses (R), 2+ Radial Pulses (L) Gastrointestinal: soft Extremity: Normal Capillary Refill Neurologic/Psychiatric: No Alert, No Oriented x3; Other (on vent/sedated) Other comments PE PER RN Results Lab Laboratory Tests 10/28/21 03:50 10/29/21 04:20 Assessment/Plan Assessment/Plan 1. ARDS due to Covid19 pneumonia 2. Acute hypoxic respiratory failure unable to wean from vent. 3. History of cardiac arrest following development of tension pneumothorax after intubation status post chest tube placement and CVC insertion on 10/18/2021. 4. Atrial fibrillation with rapid ventricular rate currently controlled being followed by bond underwriter. 5. Possible superimposed bacterial pneumonia on broad-spectrum antibiotic. 6. Small PE as depicted on CT AAA 10/19/2021. 7. Hyperglycemia due to steroids. Recommendations 1. Continue mechanical ventilatory support and wean FiO2 as tolerated. 2. Patient probably will need trach and PEG as soon as possible as he is unlikely to be weaned off the ventilator anytime soon. However his overall prognosis is poor. 3. Amiodarone per cardiology. 4. Continue Eliquis for PE and DVT prophylaxis. 5. Overall prognosis is poor.. Critical Care: Critically Ill Patient MIRNA TOBAR MD Oct 29, 2021 09:59
--- NOTE | 2021-10-29 10:26 | Progress Note ---
Subjective Subjective/Events-last exam Worsening hypoxia overnight requiring increasing FiO2, now at 100% FiO2. Having some possible cardiac pauses. Maxed on sedation, but still overbreathing and alarming high pressures on vent. Objective Exam Last Set of Vital Signs Vital Signs Date Time Temp Pulse Resp B/P (MAP) Pulse Ox O2 Delivery O2 Flow Rate FiO2 10/29/21 10:19 70 26 91 100 10/29/21 09:36 97/52 10/29/21 08:00 36.6 10/29/21 06:00 Mechanical Ventilator 100.00 Capillary Refill : Less Than 3 Seconds I&O Intake and Output 10/28/21 23:59 Intake Total 2500 ml Output Total 2610 ml Balance -110 ml Intake Oral 0 ml IV Total 1050 ml Tube Feeding 1080 ml Other 370 ml Output Urine Total 2610 ml Chest Tube Drainage Total 0 ml Drainage Total 0 ml General: Other (sedated, ventilated) Lungs: Other (ronchi, chest tube in right chest with no air) Heart: Regular Rate Abdomen: Normal Bowel Sounds, Soft Extremities: No Edema Results/Procedures Lab Laboratory Tests 10/28/21 11:29: Glucometer 105 10/28/21 17:20: Glucometer 127H 10/29/21 04:20: White Blood Count 10.0, Red Blood Count 3.44L, Hemoglobin 9.8L, Hematocrit 32L, Mean Corpuscular Volume 93, Mean Corpuscular Hemoglobin 29, Mean Corpuscular Hemoglobin Concent 31L, Red Cell Distribution Width 15.4H, Platelet Count 206, Mean Platelet Volume 11.0, Immature Granulocyte % (Auto) 4, Neutrophils (%) (Auto) 72, Lymphocytes (%) (Auto) 9L, Monocytes (%) (Auto) 12, Eosinophils (%) (Auto) 2, Basophils (%) (Auto) 1, Neutrophils # (Auto) 7.3, Lymphocytes # (Auto) 0.9L, Monocytes # (Auto) 1.2H, Eosinophils # (Auto) 0.2, Basophils # (Auto) 0.1, Immature Granulocyte # (Auto) 0.4H, Neutrophils % (Manual) 74, Lymphocytes % (Manual) 8, Monocytes % (Manual) 10, Eosinophils % (Manual) 3, Band Neutrophils 5, Spherocytes SLIGHT, Elliptocytes SLIGHT, Sodium Level 142, Potassium Level 4.3, Chloride Level 102, Carbon Dioxide Level 33H, Anion Gap 7, Blood Urea Nitrogen 10, Creatinine 0.58L, Estimat Glomerular Filtration Rate 147, BUN/Creatinine Ratio 17, Glucose Level 121H, Calcium Level 8.1L, Phosphorus Leve l 3.7, Magnesium Level 2.1, Triglycerides Level 229H 10/29/21 04:25: Blood Gas Puncture Site RIGHT ARTLINE, Blood Gas Patient Temperature 35.9, Arterial Blood pH 7.34*L, Arterial Blood Partial Pressure CO2 64H, Arterial Blood Partial Pressure O2 60L, Arterial Blood HCO3 34H, Arterial Blood Total CO2 36.5H, Arterial Blood Oxygen Saturation 90L, Arterial Blood Base Excess 8.5H, To Test ARTLINE, Blood Gas Ventilator Setting YES, Blood Gas Inspired Oxygen 100% 10/29/21 05:05: Glucometer 124H Microbiology 10/25/21 Gram Stain - Final, Complete 10/25/21 Sputum Culture - Final, Complete Usual Mixed Pat Staphylococcus aureus Probable Klebsiella/Enterobact 10/14/21 Urine Culture - Final, Complete NO GROWTH 10/14/21 Blood Culture - Final, Complete No growth Assessment/Plan Assessment/Plan (1) Acute respiratory failure due to COVID-19 Status: Acute Assessment & Plan: On admission- Continued dexamethasone. Remdesevir started per ICU. D dimer elevated, CTA negative for PE. Since that time had Actemra, completed remdesevir, had dexamethasone increased to 10 mg daily on day 5 of dexamethasone. Ultimately ended up requiring intubation on 10/18, after which had cardiac arrest. 10/29/20- worsening hypoxia in spite of ventilatory support, requiring 100% FiO2 and increasing PEEP, appreciate [facility] ICU recommendations. Discussed with patient's brother, for now they are continuing aggressive care, Surgery notified of need for trach and PEG. (2) Pneumonia due to COVID-19 virus Status: Acute (3) Depression Status: Chronic Assessment & Plan: Resumed home SSRI (4) Hypertension Status: Chronic Assessment & Plan: Resumed home lisinopril 10/09 increase lisinopril to 20 mg daily 10/29/21- became hypotensive over the course of stay, anti-hypertensives stopped, requiring norepinephrine. (5) Hyperlipidemia Status: Chronic (6) Liver mass, right lobe Status: Acute Assessment & Plan: Seen incidentally on chest CT, needs non-urgent CT liver protocol for follow up. (7) Deep vein thrombosis Status: Acute Assessment & Plan: Right peroneal, left femoral into calf veins, started on treatment dose enoxaparin 10/11. Qualifiers: (8) Cardiorespiratory arrest Status: Acute Assessment & Plan: s/p cardiac arrest on 10/18 with multiple rounds of chest compression and ROSC x 2, after intubation. (9) Paroxysmal atrial fibrillation Status: Acute Assessment & Plan: 10/29/21 No further episodes since cardioversion, thought to be related to his arrest. Appreciate Cardiology recommendations, decreasing amiodarone today (weaning anyway, but decreasing further with some possible dropped beats) (10) Septic shock NELY NEGRO MD Oct 29, 2021 10:26
[2021-10-29] MEDS: ANIDULAFUNGIN INJECTION 100 MG in NS (IVPB) 100 ML IV SCH (10:37)
[2021-10-29] MEDS: MIDAZOLAM DRIP PRE-MIX 100 ML IV SCH ×2 (10:38→22:48)
[2021-10-29] MEDS: ALPRAZolam 0.5 MG (XANAX) TAB PO PRN (11:13)
[2021-10-29] MEDS: LIDOCAINE 4% (SALONPAS) PATCH TOP SCH (11:13)
[2021-10-29] MEDS ORDERED: NS IV 500 ML 500 ML ONE (12:05)
--- NOTE | 2021-10-29 16:15 | Cardiology Progress Note ---
Progress Note-Cardiology Events since last exam Date Seen by Provider: Oct 29, 2021 Time Seen by Provider: 16:13 Events since last exam I am following him due to atrial fibrillation. I did not see the patient due to his Covid status. I did speak with his nurse of today. He is on slightly more norepinephrine over the past 24 hours and his oxygen requirements have gone up. He has not had any further atrial fibrillation but may be dropping some ventricular beats. Vitals Last set of Vitals Signs Vital Signs 10/29/21 10/29/21 10/29/21 10/29/21 15:00 15:27 15:58 16:19 Temp 36.6 Pulse 74 Resp 23 B/P (MAP) 87/54 Pulse Ox 89 O2 Delivery Mechanical Ventilator O2 Flow Rate 100.00 FiO2 100 Labs Labs Laboratory Tests 10/29/21 04:20 Exam Vital Signs Vital Signs Date Time Temp Pulse Resp B/P (MAP) Pulse Ox O2 Delivery O2 Flow Rate FiO2 10/29/21 16:19 74 87/54 10/29/21 15:58 36.6 10/29/21 15:27 89 Mechanical Ventilator 100 10/29/21 15:00 23 100.00 Physical Exam I did not examine the patient due to his Covid status. Labs Laboratory Tests Test 10/28/21 17:20 10/29/21 04:20 10/29/21 04:25 10/29/21 05:05 Range/Units Glucometer 127 H 124 H 70-110 MG/DL White Blood Count 10.0 4.3-11.0 10^3/uL Red Blood Count 3.44 L 4.30-5.52 10^6/uL Hemoglobin 9.8 L 13.3-17.7 g/dL Hematocrit 32 L 40-54 % Mean Corpuscular Volume 93 80-99 fL Mean Corpuscular Hemoglobin 29 25-34 pg Mean Corpuscular Hemoglobin Concent 31 L 32-36 g/dL Red Cell Distribution Width 15.4 H 10.0-14.5 % Platelet Count 206 130-400 10^3/uL Mean Platelet Volume 11.0 9.0-12.2 fL Immature Granulocyte % (Auto) 4 % Neutrophils (%) (Auto) 72 42-75 % Lymphocytes (%) (Auto) 9 L 12-44 % Monocytes (%) (Auto) 12 0-12 % Eosinophils (%) (Auto) 2 0-10 % Basophils (%) (Auto) 1 0-10 % Neutrophils # (Auto) 7.3 1.8-7.8 10^3/uL Lymphocytes # (Auto) 0.9 L 1.0-4.0 10^3/uL Monocytes # (Auto) 1.2 H 0.0-1.0 10^3/uL Eosinophils # (Auto) 0.2 0.0-0.3 10^3/uL Basophils # (Auto) 0.1 0.0-0.1 10^3/uL Immature Granulocyte # (Auto) 0.4 H 0.0-0.1 10^3/uL Neutrophils % (Manual) 74 % Lymphocytes % (Manual) 8 % Monocytes % (Manual) 10 % Eosinophils % (Manual) 3 % Band Neutrophils 5 % Spherocytes SLIGHT Elliptocytes SLIGHT Sodium Level 142 135-145 MMOL/L Potassium Level 4.3 3.6-5.0 MMOL/L Chloride Level 102 98-107 MMOL/L Carbon Dioxide Level 33 H 21-32 MMOL/L Anion Gap 7 5-14 MMOL/L Blood Urea Nitrogen 10 7-18 MG/DL Creatinine 0.58 L 0.60-1.30 MG/DL Estimat Glomerular Filtration Rate 147 BUN/Creatinine Ratio 17 Glucose Level 121 H 70-105 MG/DL Calcium Level 8.1 L 8.5-10.1 MG/DL Phosphorus Level 3.7 2.3-4.7 MG/DL Magnesium Level 2.1 1.6-2.4 MG/DL Triglycerides Level 229 H <150 MG/DL Blood Gas Puncture Site RIGHT ARTLINE Blood Gas Patient Temperature 35.9 Arterial Blood pH 7.34 *L 7.37-7.43 Arterial Blood Partial Pressure CO2 64 H 35-45 MMHG Arterial Blood Partial Pressure O2 60 L 79-93 MMHG Arterial Blood HCO3 34 H 23-27 MMOL/L Arterial Blood Total CO2 36.5 H 21.0-31.0 MMOL/L Arterial Blood Oxygen Saturation 90 L 94-100 % Arterial Blood Base Excess 8.5 H -2.5-2.5 MMOL/L To Test ARTLINE Blood Gas Ventilator Setting YES Blood Gas Inspired Oxygen 100% Test 10/29/21 11:45 Range/Units Glucometer 106 70-110 MG/DL Diagnosis/Problems Diagnosis/Problems (1) Paroxysmal atrial fibrillation Assessment & Plan: This was a new finding on this patient during this admission. This was most most likely brought on by the resuscitative efforts during his cardiopulmonary arrest and possibly Covid infection. Since his cardioversion on 10/18, he remains in sinus rhythm and sinus tachycardia on oral amiodarone. I decreased the dose of amiodarone on 10/26/2021. This will need to be tapered over time. Since the atrial fibrillation was most likely brought on by his cardiopulmonary arrest and lasted less than 48 hours, he does not necessarily need anticoagulation for the atrial fibrillation. However, he is on apixaban due to left lower extremity deep venous thrombosis. He has now had some possible dropped ventricular beats. I will lower the dose of amiodarone again. I initially lowered this as part of normal tapering. (2) Primary hypertension Assessment & Plan: He has been intermittently on intravenous norepinephrine due to recurrent shock. The medication list in [facility] was somewhat confusing. I discontinued his antihypertensive medication until he is off vasopressors. (3) Mixed hyperlipidemia Assessment & Plan: Continue statin medication. (4) Septic shock Assessment & Plan: Most likely related to Covid pneumonia. As above, we will continue norepinephrine infusion and wean as tolerated. (5) Acute respiratory failure due to COVID-19 Status: Acute Assessment & Plan: The hospitalist and eICU are managing the ventilator. (6) Deep vein thrombosis of left lower extremity Assessment & Plan: Possibly related to Covid infection. He continues on apixaban. KAIT MORENO JR, MD Oct 29, 2021 16:15
--- NOTE | 2021-10-29 17:35 | Diagnostic Imaging Report ---
INDICATION: Pneumonia, COVID positive. Frontal chest obtained at 5:16 p.m. and compared to 10/29/2021 at 3:51 a.m. FINDINGS: ET tube and right subclavian central catheter and NG tube are all unchanged. There is cardiomegaly. Extensive bilateral infiltrates remain present and similar to the prior study. There is no pneumothorax. IMPRESSION: No change in significant bilateral infiltrates. Life support lines are stable. Dictated by: Dictated on workstation # [id number]
[2021-10-29 17:40] LABS: ABG BASE EXCESS 8.7 MMOL/L (-2.5-2.5); ABG OXYGEN SATURATION 88 % (94-100); ABG PO2 58 MMHG (79-93); ABG TCO2 37.7 MMOL/L (21.0-31.0)
[2021-10-29 17:46] LABS: ABG PCO2 77 MMHG (35-45); ABG PH 7.28 (7.37-7.43); ALLENS TEST ART LINE; VENTILATOR YES
[2021-10-29 17:47] LABS: PATIENT TEMP 36.6
[2021-10-29] MEDS ORDERED: CISATRACURIUM 2MG/ML (NIMBEX) 10ML VIAL IV ONE (19:30)
[2021-10-29] MEDS: CISATRACURIUM DRIP 250 ML IV SCH (19:37)
[2021-10-29] MEDS: AtorvaSTATin TABLET 10 MG TABLET PO SCH (21:19)
[2021-10-29] MEDS: traZODone 100 MG (DESYREL) TAB PO SCH (21:19)
[2021-10-29] MEDS: traZODone 50 MG (DESYREL) TAB PO SCH (21:19)
[2021-10-30] VITALS (29 sets, daily range): BP systolic 10–173; BP diastolic 50–81
[2021-10-30] MEDS: CISATRACURIUM DRIP 250 ML IV SCH ×5 (01:14→21:04)
[2021-10-30] MEDS: MEROPENEM 1,000 MG in NS (IVPB) 100 ML IV SCH ×3 (02:27→18:04)
[2021-10-30] MEDS: RT-ALBUTEROL HFA 8.5 GM INHALER IH SCH ×4 (03:12→21:32)
[2021-10-30 03:30] LABS: HEMATOCRIT 32 % (40-54); HEMOGLOBIN 9.6 g/dL (13.3-17.7); MEAN CORPUSCULAR HEMOGLOBIN 29 pg (25-34); MEAN CORPUSCULAR HGB CONC 31 g/dL (32-36); MEAN CORPUSCULAR VOLUME 94 fL (80-99); MEAN PLATELET VOLUME 10.8 fL (9.0-12.2); PLATELET COUNT 221 10^3/uL (130-400); WHITE BLOOD COUNT 10.2 10^3/uL (4.3-11.0)
[2021-10-30 03:30] LABS: ABG BASE EXCESS 9.2 MMOL/L (-2.5-2.5); ABG OXYGEN SATURATION 86 % (94-100); ABG PO2 60 MMHG (79-93); ABG TCO2 38.5 MMOL/L (21.0-31.0)
[2021-10-30 03:31] LABS: ALLENS TEST ARTLINE; INSPIRED O2 100%; PATIENT TEMP 37.1; VENTILATOR YES
[2021-10-30 03:32] LABS: ABG PH 7.27 (7.37-7.43)
[2021-10-30 03:33] LABS: ABG PCO2 81 MMHG (35-45)
[2021-10-30] MEDS: PROPOFOL DRIP (ICU) 100 ML IV SCH ×6 (03:38→23:17)
[2021-10-30 03:44] LABS: POTASSIUM 4.3 MMOL/L (3.6-5.0)
[2021-10-30 03:45] LABS: CALCIUM 7.9 MG/DL (8.5-10.1)
[2021-10-30 03:49] LABS: PHOSPHORUS 3.1 MG/DL (2.3-4.7)
[2021-10-30 03:50] LABS: CREATININE SERUM 0.58 MG/DL (0.60-1.30)
[2021-10-30] MEDS: MAGNESIUM 1 GM/100 ML IVPB 100 ML IV SCH (03:54)
[2021-10-30] MEDS: KCL 20 MEQ TAB (K-DUR) PO SCH (03:54)
[2021-10-30] MEDS: POTASSIUM CL 10MEQ/50ML IVPB 50 ML IV SCH (03:54)
[2021-10-30] MEDS: inSUlin ASPART (NovoLOG) 1 UNIT/0.01 ML (CHARGE PER UNIT) SQ SCH ×4 (03:55→23:27)
[2021-10-30] MEDS: fentaNYL DRIP PRE-MIX 250 ML IV SCH ×7 (04:31→23:29)
[2021-10-30] MEDS: NOREPINEPHRINE 8 MG/250 ML 250 ML IV SCH ×3 (04:35→23:39)
[2021-10-30] MEDS: DexMEDEtomidine 250 ML DRIP 250 ML IV SCH ×3 (05:35→21:17)
[2021-10-30] MEDS: MIDAZOLAM DRIP PRE-MIX 100 ML IV SCH ×3 (05:37→23:35)
[2021-10-30] MEDS: ACYCLOVIR 400 MG TABLET (ZOVIRAX) PO SCH ×2 (08:46→18:03)
[2021-10-30] MEDS: APIXABAN 5 MG (ELIQUIS) TABLET PO SCH ×2 (08:47→21:03)
[2021-10-30] MEDS: ANIDULAFUNGIN INJECTION 100 MG in NS (IVPB) 100 ML IV SCH (08:47)
[2021-10-30] MEDS: AMIODARONE 200 MG (CORDARONE) TAB PO SCH ×2 (08:47→21:04)
[2021-10-30] MEDS: LIDOCAINE 4% (SALONPAS) PATCH TOP SCH (08:47)
[2021-10-30] MEDS: PANTOPRAZOLE 40 MG (PROTONIX) VIAL IV SCH (08:47)
--- NOTE | 2021-10-30 11:05 | Cardiology Progress Note ---
Progress Note-Cardiology Events since last exam Date Seen by Provider: Oct 30, 2021 Time Seen by Provider: 11:04 Events since last exam I am following him due to atrial fibrillation. He remains in the intensive care unit intubated and sedated. His pulmonary status continues to worsen. He remains on norepinephrine due to shock. I did not see the patient due to his Covid status. Certain portions of this document may have been dictated utilizing voice recognition technology. Inherent to this technology, typographical and grammatical errors may exist. As much as I am diligent to identify and correct these mistakes, some errors may remain in the document. Vitals Last set of Vitals Signs Vital Signs 10/30/21 10/30/21 10/30/21 10/30/21 10/30/21 10:00 11:25 12:00 13:39 13:41 Temp 37.6 Pulse 75 Resp 26 B/P (MAP) 123/56 Pulse Ox 91 O2 Delivery Mechanical Ventilator O2 Flow Rate 100.00 FiO2 100 Labs Labs Laboratory Tests 10/30/21 03:10 Exam Vital Signs Vital Signs Date Time Temp Pulse Resp B/P (MAP) Pulse Ox O2 Delivery O2 Flow Rate FiO2 10/30/21 13:41 75 123/56 10/30/21 13:39 26 10/30/21 12:00 91 Mechanical Ventilator 100 10/30/21 11:25 37.6 10/30/21 10:00 100.00 Physical Exam I did not examine the patient due to his Covid status. Labs Laboratory Tests Test 10/29/21 17:32 10/29/21 17:51 10/29/21 23:39 10/30/21 03:10 Range/Units Blood Gas Puncture Site ART LINE Blood Gas Patient Temperature 36.6 Arterial Blood pH 7.28 *L 7.37-7.43 Arterial Blood Partial Pressure CO2 77 *H 35-45 MMHG Arterial Blood Partial Pressure O2 58 L 79-93 MMHG Arterial Blood HCO3 35 H 23-27 MMOL/L Arterial Blood Total CO2 37.7 H 21.0-31.0 MMOL/L Arterial Blood Oxygen Saturation 88 L 94-100 % Arterial Blood Base Excess 8.7 H -2.5-2.5 MMOL/L To Test ART LINE Blood Gas Ventilator Setting YES Blood Gas Inspired Oxygen NA Glucometer 94 121 H 70-110 MG/DL White Blood Count 10.2 4.3-11.0 10^3/uL Red Blood Count 3.35 L 4.30-5.52 10^6/uL Hemoglobin 9.6 L 13.3-17.7 g/dL Hematocrit 32 L 40-54 % Mean Corpuscular Volume 94 80-99 fL Mean Corpuscular Hemoglobin 29 25-34 pg Mean Corpuscular Hemoglobin Concent 31 L 32-36 g/dL Red Cell Distribution Width 15.5 H 10.0-14.5 % Platelet Count 221 130-400 10^3/uL Mean Platelet Volume 10.8 9.0-12.2 fL Sodium Level 141 135-145 MMOL/L Potassium Level 4.3 3.6-5.0 MMOL/L Chloride Level 102 98-107 MMOL/L Carbon Dioxide Level 31 21-32 MMOL/L Anion Gap 8 5-14 MMOL/L Blood Urea Nitrogen 9 7-18 MG/DL Creatinine 0.58 L 0.60-1.30 MG/DL Estimat Glomerular Filtration Rate 147 BUN/Creatinine Ratio 16 Glucose Level 127 H 70-105 MG/DL Calcium Level 7.9 L 8.5-10.1 MG/DL Phosphorus Level 3.1 2.3-4.7 MG/DL Magnesium Level 2.1 1.6-2.4 MG/DL Test 10/30/21 03:22 10/30/21 11:15 Range/Units Blood Gas Puncture Site ARTLINE Blood Gas Patient Temperature 37.1 Arterial Blood pH 7.27 *L 7.37-7.43 Arterial Blood Partial Pressure CO2 81 *H 35-45 MMHG Arterial Blood Partial Pressure O2 60 L 79-93 MMHG Arterial Blood HCO3 36 H 23-27 MMOL/L Arterial Blood Total CO2 38.5 H 21.0-31.0 MMOL/L Arterial Blood Oxygen Saturation 86 L 94-100 % Arterial Blood Base Excess 9.2 H -2.5-2.5 MMOL/L To Test ARTLINE Blood Gas Ventilator Setting YES Blood Gas Inspired Oxygen 100% Glucometer 141 H 70-110 MG/DL Diagnosis/Problems Diagnosis/Problems (1) Paroxysmal atrial fibrillation Status: Acute Assessment & Plan: This was a new finding on this patient during this admission. This was most most likely brought on by the resuscitative efforts during his cardiopulmonary arrest and possibly Covid infection. Since his cardioversion on 10/18, he remains in sinus rhythm and sinus tachycardia on oral amiodarone. I decreased the dose of amiodarone on 10/26/2021. This will need to be tapered over time. Since the atrial fibrillation was most likely brought on by his cardiopulmonary arrest and lasted less than 48 hours, he does not necessarily need anticoagulation for the atrial fibrillation. However, he is on apixaban due to left lower extremity deep venous thrombosis. He has now had some possible dropped ventricular beats. I now have him on a low-dose of amiodarone at 100 mg twice daily. We will continue to taper this over the next few weeks assuming the patient survives Covid infection. (2) Primary hypertension Assessment & Plan: He has been intermittently on intravenous norepinephrine due to recurrent shock. All antihypertensive medication is on hold until he comes off vasopressor medication. I removed all of his outpatient antihypertensive medication from the inpatient list. (3) Mixed hyperlipidemia Assessment & Plan: Continue statin medication. (4) Septic shock Assessment & Plan: Most likely related to Covid pneumonia. As above, we will continue norepinephrine infusion and wean as tolerated. (5) Acute respiratory failure due to COVID-19 Status: Acute Assessment & Plan: The hospitalist and eICU are managing the ventilator. (6) Deep vein thrombosis of left lower extremity Assessment & Plan: Possibly related to Covid infection. He continues on apixaban. KAIT MORENO JR, MD Oct 30, 2021 11:05
--- NOTE | 2021-10-30 13:02 | Progress Note ---
Subjective Date Seen by a Provider: Oct 30, 2021 Time Seen by a Provider: 12:00 Subjective/Events-last exam remains critically ill. pulmonary status continues to worsen. prognosis again very poor however family would like to continue with trach and PEG. Objective Exam Vital Signs Date Time Temp Pulse Resp B/P (MAP) Pulse Ox O2 Delivery O2 Flow Rate FiO2 10/30/21 12:00 91 Mechanical Ventilator 100 10/30/21 11:25 37.6 10/30/21 10:23 75 26 91 100 10/30/21 10:20 75 158/64 10/30/21 10:18 74 160/64 10/30/21 10:00 75 26 133/56 (81) 90 Mechanical Ventilator 100.00 10/30/21 09:00 71 26 133/58 (83) 92 Mechanical Ventilator 100.00 10/30/21 08:00 71 26 149/61 (90) 93 Mechanical Ventilator 100.00 10/30/21 08:00 91 Mechanical Ventilator 100 10/30/21 07:45 36.6 10/30/21 07:15 72 26 92 100 10/30/21 07:00 73 26 126/53 (77) 91 Mechanical Ventilator 100.00 10/30/21 07:00 72 10/30/21 06:00 73 26 139/59 (85) 92 Mechanical Ventilator 100.00 10/30/21 05:37 74 26 131/56 10/30/21 05:35 74 131/56 10/30/21 05:00 73 26 128/54 (78) 91 Mechanical Ventilator 100.00 10/30/21 04:35 74 131/56 10/30/21 04:00 74 26 131/56 (81) 91 Mechanical Ventilator 100.00 10/30/21 04:00 91 Mechanical Ventilator 100 10/30/21 03:38 71 132/56 10/30/21 03:38 71 132/56 10/30/21 03:12 71 26 91 100 10/30/21 03:00 74 26 130/55 (80) 92 Mechanical Ventilator 100.00 10/30/21 02:00 74 26 130/56 (80) 91 Mechanical Ventilator 100.00 10/30/21 01:00 74 26 132/56 (81) 91 Mechanical Ventilator 100.00 10/30/21 01:00 74 10/30/21 00:00 90 Mechanical Ventilator 100 10/30/21 00:00 75 26 131/56 (81) 89 Mechanical Ventilator 100.00 10/29/21 23:00 75 26 133/57 (82) 90 Mechanical Ventilator 100.00 10/29/21 22:48 75 26 123/56 10/29/21 22:42 75 26 89 100 10/29/21 22:00 76 26 123/52 (75) 89 Mechanical Ventilator 100.00 10/29/21 21:57 72 143/59 10/29/21 21:29 72 143/59 10/29/21 21:29 72 143/59 10/29/21 21:00 72 26 143/59 (87) 91 Mechanical Ventilator 100.00 10/29/21 20:00 70 26 131/61 (84) 90 Mechanical Ventilator 100.00 10/29/21 20:00 88 Mechanical Ventilator 100 10/29/21 19:43 37.2 10/29/21 19:37 36.3 Mechanical Ventilator 100.00 10/29/21 19:00 71 10/29/21 19:00 71 26 127/61 (83) 88 Mechanical Ventilator 100.00 10/29/21 18:58 71 26 88 100 10/29/21 18:00 72 26 110/56 (74) 93 Mechanical Ventilator 100.00 10/29/21 17:00 71 19 129/58 (81) 87 Mechanical Ventilator 100.00 10/29/21 16:34 72 140/71 10/29/21 16:33 70 140/62 10/29/21 16:19 74 87/54 10/29/21 16:00 70 14 86/83 (84) 88 Mechanical Ventilator 100.00 10/29/21 15:58 36.6 10/29/21 15:27 89 Mechanical Ventilator 100 10/29/21 15:00 70 105/55 10/29/21 15:00 66 23 130/59 (82) 91 Mechanical Ventilator 100.00 10/29/21 14:09 70 32 90 100 10/29/21 14:00 67 21 115/53 (73) 88 Mechanical Ventilator 100.00 10/29/21 13:00 66 10/29/21 13:00 64 26 137/64 (88) 91 Mechanical Ventilator 100.00 I & O 10/30/21 07:00 Intake Total 1390 ml Output Total 3150 ml Balance -1760 ml Capillary Refill : Less Than 3 Seconds General Appearance: No Apparent Distress HEENT: TMs Normal Neck: Supple Respiratory: Decreased Breath Sounds, Rhonci, Wheezing Cardiovascular: Regular Rate, Rhythm Gastrointestinal: normal bowel sounds, non tender, soft Extremity: Normal Capillary Refill Neurologic/Psychiatric: Other (vent/sedated) Skin: Normal Color Lymphatic: No Adenopathy Results Lab Laboratory Tests 10/29/21 17:32: Blood Gas Puncture Site ART LINE, Blood Gas Patient Temperature 36.6, Arterial Blood pH 7.28*L, Arterial Blood Partial Pressure CO2 77*H, Arterial Blood Partial Pressure O2 58L, Arterial Blood HCO3 35H, Arterial Blood Total CO2 37.7H , Arterial Blood Oxygen Saturation 88L, Arterial Blood Base Excess 8.7H, To Test ART LINE, Blood Gas Ventilator Setting YES, Blood Gas Inspired Oxygen NA 10/29/21 17:51: Glucometer 94 10/29/21 23:39: Glucometer 121H 10/30/21 03:10: White Blood Count 10.2, Red Blood Count 3.35L, Hemoglobin 9.6L, Hematocrit 32L, Mean Corpuscular Volume 94, Mean Corpuscular Hemoglobin 29, Mean Corpuscular Hemoglobin Concent 31L, Red Cell Distribution Width 15.5H, Platelet Count 221, Mean Platelet Volume 10.8, Sodium Level 141, Potassium Level 4.3, Chloride Level 102, Carbon Dioxide Level 31, Anion Gap 8, Blood Urea Nitrogen 9, Creatinine 0.58L, Estimat Glomerular Filtration Rate 147, BUN/Creatinine Ratio 16, Glucose Level 127H, Calcium Level 7.9L, Phosphorus Level 3.1, Magnesium Level 2.1 10/30/21 03:22: Blood Gas Puncture Site ARTLINE, Blood Gas Patient Temperature 37.1, Arterial Blood pH 7.27*L, Arterial Blood Partial Pressure CO2 81*H, Arterial Blood Partial Pressure O2 60L, Arterial Blood HCO3 36H, Arterial Blood Total CO2 38.5H , Arterial Blood Oxygen Saturation 86L, Arterial Blood Base Excess 9.2H, To Test ARTLINE, Blood Gas Ventilator Setting YES, Blood Gas Inspired Oxygen 100% 10/30/21 11:15: Glucometer 141H Microbiology 10/25/21 Gram Stain - Final, Complete 10/25/21 Sputum Culture - Final, Complete Usual Mixed Pat Staphylococcus aureus Probable Klebsiella/Enterobact 10/14/21 Urine Culture - Final, Complete NO GROWTH 10/14/21 Blood Culture - Final, Complete No growth Assessment/Plan Assessment/Plan Assess & Plan/Chief Complaint covid resp failure with cardiac arrest and right ptx s/p ct. poor prognosis and many surgical risks involved however family would like to proceed with trach and peg which we will schedule. KAVON WOLFE MD Oct 30, 2021 13:02
--- NOTE | 2021-10-30 13:03 | Tele-ICU Progress Note ---
Subjective Date Seen by a Provider: Oct 30, 2021 Time Seen by a Provider: 08:45 Subjective/Events-last exam he is remained on vent with 100% fio2 and pee14. he is in respiratory acidosis. his prognosis is grave. but family wants full code and wants us everything possible. he is not stable for transfer and beds availble at other [facility] in this period of covid surge. Review of Systems ros per rn Sepsis Event Evaluation Height, Weight, BMI Height: 5'10.00" Weight: 182lbs. 0.0oz. [id number]; 25.79 BMI Method: Exam Exam Patient acknowledged, consented, and participated in this virtual visit which was conducted using real time audio/video Vital Signs Date Time Temp Pulse Resp B/P (MAP) Pulse Ox O2 Delivery O2 Flow Rate FiO2 10/30/21 12:00 91 Mechanical Ventilator 100 10/30/21 11:25 37.6 10/30/21 10:23 75 26 91 100 10/30/21 10:20 75 158/64 10/30/21 10:18 74 160/64 10/30/21 10:00 75 26 133/56 (81) 90 Mechanical Ventilator 100.00 10/30/21 09:00 71 26 133/58 (83) 92 Mechanical Ventilator 100.00 10/30/21 08:00 71 26 149/61 (90) 93 Mechanical Ventilator 100.00 10/30/21 08:00 91 Mechanical Ventilator 100 10/30/21 07:45 36.6 10/30/21 07:15 72 26 92 100 10/30/21 07:00 73 26 126/53 (77) 91 Mechanical Ventilator 100.00 10/30/21 07:00 72 10/30/21 06:00 73 26 139/59 (85) 92 Mechanical Ventilator 100.00 10/30/21 05:37 74 26 131/56 10/30/21 05:35 74 131/56 10/30/21 05:00 73 26 128/54 (78) 91 Mechanical Ventilator 100.00 10/30/21 04:35 74 131/56 10/30/21 04:00 74 26 131/56 (81) 91 Mechanical Ventilator 100.00 10/30/21 04:00 91 Mechanical Ventilator 100 10/30/21 03:38 71 132/56 1/4/22 03:38 71 132/56 10/30/21 03:12 71 26 91 100 10/30/21 03:00 74 26 130/55 (80) 92 Mechanical Ventilator 100.00 10/30/21 02:00 74 26 130/56 (80) 91 Mechanical Ventilator 100.00 10/30/21 01:00 74 26 132/56 (81) 91 Mechanical Ventilator 100.00 10/30/21 01:00 74 10/30/21 00:00 90 Mechanical Ventilator 100 10/30/21 00:00 75 26 131/56 (81) 89 Mechanical Ventilator 100.00 10/29/21 23:00 75 26 133/57 (82) 90 Mechanical Ventilator 100.00 10/29/21 22:48 75 26 123/56 10/29/21 22:42 75 26 89 100 10/29/21 22:00 76 26 123/52 (75) 89 Mechanical Ventilator 100.00 10/29/21 21:57 72 143/59 10/29/21 21:29 72 143/59 10/29/21 21:29 72 143/59 10/29/21 21:00 72 26 143/59 (87) 91 Mechanical Ventilator 100.00 10/29/21 20:00 70 26 131/61 (84) 90 Mechanical Ventilator 100.00 10/29/21 20:00 88 Mechanical Ventilator 100 10/29/21 19:43 37.2 10/29/21 19:37 36.3 Mechanical Ventilator 100.00 10/29/21 19:00 71 10/29/21 19:00 71 26 127/61 (83) 88 Mechanical Ventilator 100.00 10/29/21 18:58 71 26 88 100 10/29/21 18:00 72 26 110/56 (74) 93 Mechanical Ventilator 100.00 10/29/21 17:00 71 19 129/58 (81) 87 Mechanical Ventilator 100.00 10/29/21 16:34 72 140/71 10/29/21 16:33 70 140/62 10/29/21 16:19 74 87/54 10/29/21 16:00 70 14 86/83 (84) 88 Mechanical Ventilator 100.00 10/29/21 15:58 36.6 10/29/21 15:27 89 Mechanical Ventilator 100 10/29/21 15:00 70 105/55 10/29/21 15:00 66 23 130/59 (82) 91 Mechanical Ventilator 100.00 10/29/21 14:09 70 32 90 100 10/29/21 14:00 67 21 115/53 (73) 88 Mechanical Ventilator 100.00 I & O 10/30/21 07:00 Intake Total 1390 ml Output Total 3150 ml Balance -1760 ml Height & Weight Height: 5'10.00" Weight: 182lbs. 0.0oz. [id number]; 25.79 BMI Method: General Appearance: No Apparent Distress HEENT: TMs Normal Neck: Supple Respiratory: Decreased Breath Sounds, Rhonci, Wheezing Cardiovascular: Regular Rate, Rhythm Capillary Refill: Less Than 3 Seconds Peripheral Pulses: 1+ Dorsalis Pedis (R), 1+ Left Dors-Pedis (L); 2+ Radial Pulses (R), 2+ Radial Pulses (L) Gastrointestinal: normal bowel sounds, non tender, soft Extremity: Normal Capillary Refill Neurologic/Psychiatric: Other (vent/sedated) Skin: Normal Color Lymphatic: No Adenopathy Other comments pe per rn Results Lab Laboratory Tests 10/29/21 04:20 10/30/21 03:10 Assessment/Plan Assessment/Plan 1. ARDS due to Covid19 pneumonia 2. Acute hypoxic respiratory failure unable to wean from vent. 3. History of cardiac arrest following development of tension pneumothorax after intubation status post chest tube placement and CVC insertion on 10/18/2021. 4. Atrial fibrillation with rapid ventricular rate currently in nsr. 5. Possible superimposed bacterial pneumonia on broad-spectrum antibiotic. 6. Small PE as depicted on CT Angio 10/19/2021. 7. Hyperglycemia due to steroids. Recommendations 1. Continue mechanical ventilatory support and wean FiO2 as tolerated. 2. Patient probably will need trach and PEG as soon as possible as he is unlikely to be weaned off the ventilator anytime soon. However his overall prognosis is grave 3. Amiodarone per cardiology. 4. Continue Eliquis for PE and DVT prophylaxis. 5. Overall prognosis is grave but family wants full code. d/w neonatal icu coordinator. Critical Care: Ventilator Management Time spent with patient (mins): 25 MIRNA TOBAR MD Oct 30, 2021 13:03
--- NOTE | 2021-10-30 17:39 | Progress Note ---
Subjective Subjective/Events-last exam Pt seen at 1010. Continued worsening overnight in spite of use of paralysis and increasing PEEP. In the afternoon I called mother and father and discussed status and the question of tracheostomy and PEG tube, they do understand that his condition is extremely tenuous, but they did say they would proceed with PEG and trach, but later asked nurse to discuss with his brother and he did decide to hold off. Objective Exam Last Set of Vital Signs Vital Signs Date Time Temp Pulse Resp B/P (MAP) Pulse Ox O2 Delivery O2 Flow Rate FiO2 10/30/21 17:03 122 157/66 10/30/21 17:00 26 83 Mechanical Ventilator 100.00 10/30/21 16:00 100 10/30/21 15:59 37.3 Capillary Refill : Less Than 3 Seconds I&O Intake and Output 10/30/21 00:00 Intake Total 2440 ml Output Total 3375 ml Balance -935 ml Intake Oral 0 ml IV Total 1150 ml Tube Feeding 1080 ml Other 210 ml Output Urine Total 3375 ml Chest Tube Drainage Total 0 ml Drainage Total 0 ml # Bowel Movements 1 General: Other (diaphoretic, intubated, sedated) Lungs: Other (ronchi) Heart: Regular Rate Abdomen: Normal Bowel Sounds Extremities: Other (edema in all extremities) Results/Procedures Lab Laboratory Tests 10/29/21 17:51: Glucometer 94 10/29/21 23:39: Glucometer 121H 10/30/21 03:10: White Blood Count 10.2, Red Blood Count 3.35L, Hemoglobin 9.6L, Hematocrit 32L, Mean Corpuscular Volume 94, Mean Corpuscular Hemoglobin 29, Mean Corpuscular Hemoglobin Concent 31L, Red Cell Distribution Width 15.5H, Platelet Count 221, Mean Platelet Volume 10.8, Sodium Level 141, Potassium Level 4.3, Chloride Level 102, Carbon Dioxide Level 31, Anion Gap 8, Blood Urea Nitrogen 9, Creatinine 0.58L, Estimat Glomerular Filtration Rate 147, BUN/Creatinine Ratio 16, Glucose Level 127H, Calcium Level 7.9L, Phosphorus Level 3.1, Magnesium Level 2.1 10/30/21 03:22: Blood Gas Puncture Site ARTLINE, Blood Gas Patient Temperature 37.1, Arterial Blood pH 7.27*L, Arterial Blood Partial Pressure CO2 81*H, Arterial Blood Partial Pressure O2 60L, Arterial Blood HCO3 36H, Arterial Blood Total CO2 38.5H , Arterial Blood Oxygen Saturation 86L, Arterial Blood Base Excess 9.2H, To Test ARTLINE, Blood Gas Ventilator Setting YES, Blood Gas Inspired Oxygen 100% 10/30/21 11:15: Glucometer 141H Microbiology 10/25/21 Gram Stain - Final, Complete 10/25/21 Sputum Culture - Final, Complete Usual Mixed Pat Staphylococcus aureus Probable Klebsiella/Enterobact 10/14/21 Urine Culture - Final, Complete NO GROWTH 10/14/21 Blood Culture - Final, Complete No growth Assessment/Plan Assessment/Plan (1) Acute respiratory failure due to COVID-19 Status: Acute Assessment & Plan: On admission- Continued dexamethasone. Remdesevir started per ICU. D dimer elevated, CTA negative for PE. Since that time had Actemra, completed remdesevir, had dexamethasone increased to 10 mg daily on day 5 of dexamethasone. Ultimately ended up requiring intubation on 10/18, after which had cardiac arrest. 10/29- worsening hypoxia in spite of ventilatory support, requiring 100% FiO2 and increasing PEEP, appreciate Maria Fernanda ICU recommendations. Discussed with patient's brother, for now they are continuing aggressive care, Surgery notified of need for trach and PEG. /- Unfortunately has continued to worsen, continuing to increase PEEP and he has not improved, family wants to continue aggressive care at this time. (2) Pneumonia due to COVID-19 virus Status: Acute (3) Depression Status: Chronic (4) Hypertension Status: Chronic Assessment & Plan: Resumed home lisinopril 10/09 increase lisinopril to 20 mg daily 10/29- became hypotensive over the course of stay, anti-hypertensives stopped, requiring norepinephrine. (5) Hyperlipidemia Status: Chronic (6) Liver mass, right lobe Status: Acute Assessment & Plan: Seen incidentally on chest CT, needs non-urgent CT liver protocol for follow up. (7) Deep vein thrombosis Status: Acute Assessment & Plan: Right peroneal, left femoral into calf veins, started on treatment dose enoxaparin 10/11. Qualifiers: (8) Cardiorespiratory arrest Status: Acute Assessment & Plan: s/p cardiac arrest on 10/18 with multiple rounds of chest compression and ROSC x 2, after intubation. (9) Paroxysmal atrial fibrillation Status: Acute Assessment & Plan: 10/29/21 No further episodes since cardioversion, thought to be related to his arrest. Appreciate Cardiology recommendations, decreasing amiodarone today (weaning anyway, but decreasing further with some possible dropped beats) (10) Septic shock NELY NEGRO MD Oct 30, 2021 17:39
[2021-10-30] MEDS: traZODone 100 MG (DESYREL) TAB PO SCH (21:03)
[2021-10-30] MEDS: AtorvaSTATin TABLET 10 MG TABLET PO SCH (21:04)
[2021-10-30] MEDS: traZODone 50 MG (DESYREL) TAB PO SCH (21:04)
[2021-10-31] VITALS (28 sets, daily range): BP systolic 99–171; BP diastolic 50–75
[2021-10-31] MEDS: CISATRACURIUM DRIP 250 ML IV SCH ×6 (00:28→23:15)
[2021-10-31] MEDS: MEROPENEM 1,000 MG in NS (IVPB) 100 ML IV SCH (02:49)
[2021-10-31] MEDS: RT-ALBUTEROL HFA 8.5 GM INHALER IH SCH ×4 (03:02→21:55)
[2021-10-31 04:08] LABS: ABG BASE EXCESS 8.1 MMOL/L (-2.5-2.5); ABG OXYGEN SATURATION 87 % (94-100); ABG PO2 52 MMHG (79-93); ABG TCO2 37.4 MMOL/L (21.0-31.0)
[2021-10-31 04:13] LABS: BASOPHILS # (AUTO) 0.1 10^3/uL (0.0-0.1); BASOPHILS % (AUTO) 0 % (0-10); EOSINOPHILS # (AUTO) 0.1 10^3/uL (0.0-0.3); EOSINOPHILS % (AUTO) 1 % (0-10); HEMATOCRIT 32 % (40-54); HEMOGLOBIN 9.8 g/dL (13.3-17.7); LYMPHOCYTES % (AUTO) 8 % (12-44); MEAN CORPUSCULAR HEMOGLOBIN 29 pg (25-34); MEAN CORPUSCULAR HGB CONC 30 g/dL (32-36); MEAN CORPUSCULAR VOLUME 94 fL (80-99); MEAN PLATELET VOLUME 10.8 fL (9.0-12.2); MONOCYTES % (AUTO) 8 % (0-12); NEUTROPHILS # (AUTO) 9.5 10^3/uL (1.8-7.8); NEUTROPHILS % (AUTO) 78 % (42-75); PLATELET COUNT 252 10^3/uL (130-400); WHITE BLOOD COUNT 12.1 10^3/uL (4.3-11.0)
[2021-10-31 04:19] LABS: POTASSIUM 4.4 MMOL/L (3.6-5.0)
[2021-10-31 04:20] LABS: CALCIUM 7.9 MG/DL (8.5-10.1)
[2021-10-31 04:22] LABS: ALLENS TEST ARTLINE; INSPIRED O2 85%; VENTILATOR YES
[2021-10-31 04:24] LABS: ABG PCO2 77 MMHG (35-45); ABG PH 7.28 (7.37-7.43); PHOSPHORUS 2.8 MG/DL (2.3-4.7)
[2021-10-31 04:25] LABS: CREATININE SERUM 0.61 MG/DL (0.60-1.30)
[2021-10-31 04:27] LABS: MAGNESIUM 2.1 MG/DL (1.6-2.4)
[2021-10-31] MEDS: PROPOFOL DRIP (ICU) 100 ML IV SCH ×6 (04:29→17:19)
[2021-10-31] MEDS: fentaNYL DRIP PRE-MIX 250 ML IV SCH ×5 (04:30→17:19)
[2021-10-31] MEDS: DexMEDEtomidine 250 ML DRIP 250 ML IV SCH ×3 (04:37→22:48)
[2021-10-31] MEDS: inSUlin ASPART (NovoLOG) 1 UNIT/0.01 ML (CHARGE PER UNIT) SQ SCH ×4 (04:58→23:46)
--- NOTE | 2021-10-31 06:30 | Diagnostic Imaging Report ---
INDICATION: Respiratory failure, Covid positive. Frontal chest obtained at 03:14 a.m. and compared to 10/29/2021. FINDINGS: ET tube and NG tube and central venous catheter are unchanged. Extensive infiltrates throughout both lungs are again noted with similar appearance to the prior study. There is no pneumothorax or significant sized pleural effusion. IMPRESSION: Extensive bilateral infiltrates are unchanged with no change in life support lines. Dictated by: Dictated on workstation # [id number]
[2021-10-31] MEDS: POTASSIUM CL 10MEQ/50ML IVPB 50 ML IV SCH (07:47)
[2021-10-31] MEDS: KCL 20 MEQ TAB (K-DUR) PO SCH (07:47)
[2021-10-31] MEDS: MAGNESIUM 1 GM/100 ML IVPB 100 ML IV SCH (07:47)
[2021-10-31] MEDS: PANTOPRAZOLE 40 MG (PROTONIX) VIAL IV SCH (08:06)
[2021-10-31] MEDS: ACYCLOVIR 400 MG TABLET (ZOVIRAX) PO SCH ×2 (08:06→17:17)
[2021-10-31] MEDS: ANIDULAFUNGIN INJECTION 100 MG in NS (IVPB) 100 ML IV SCH (08:06)
[2021-10-31] MEDS: AMIODARONE 200 MG (CORDARONE) TAB PO SCH ×2 (08:07→20:53)
[2021-10-31] MEDS: LIDOCAINE 4% (SALONPAS) PATCH TOP SCH (08:07)
[2021-10-31] MEDS: APIXABAN 5 MG (ELIQUIS) TABLET PO SCH ×2 (08:07→20:53)
[2021-10-31] MEDS: NOREPINEPHRINE 8 MG/250 ML 250 ML IV SCH ×2 (08:08→20:53)
[2021-10-31] MEDS: MIDAZOLAM DRIP PRE-MIX 100 ML IV SCH (08:09)
--- NOTE | 2021-10-31 09:19 | Cardiology Progress Note ---
Progress Note-Cardiology Events since last exam Date Seen by Provider: Oct 31, 2021 Time Seen by Provider: 09:19 Events since last exam I am following him due to atrial fibrillation. He remains in the intensive care unit intubated and sedated. He remains on 100% FiO2. He is still on norepinephrine infusion due to shock. I did not see the patient due to his Covid status. I did speak with his nurse of today. Certain portions of this document may have been dictated utilizing voice recognition technology. Inherent to this technology, typographical and grammatical errors may exist. As much as I am diligent to identify and correct these mistakes, some errors may remain in the document. Vitals Last set of Vitals Signs Vital Signs 10/31/21 10/31/21 10/31/21 11:47 13:11 14:27 Temp 36.2 Pulse 75 Resp 26 B/P (MAP) 158/67 Pulse Ox 97 FiO2 100 Labs Labs Laboratory Tests 10/31/21 03:46 10/31/21 04:00 Exam Vital Signs Vital Signs Date Time Temp Pulse Resp B/P (MAP) Pulse Ox O2 Delivery O2 Flow Rate FiO2 10/31/21 14:27 75 26 97 100 10/31/21 13:11 158/67 10/31/21 12:00 Mechanical Ventilator 100.00 10/31/21 11:47 36.2 Physical Exam I did not examine the patient due to his Covid status. Labs Laboratory Tests Test 10/30/21 17:39 10/30/21 23:25 10/31/21 03:46 10/31/21 04:00 Range/Units Glucometer 137 H 133 H 70-110 MG/DL Blood Gas Puncture Site ARTLINE Blood Gas Patient Temperature 36.0 Arterial Blood pH 7.28 *L 7.37-7.43 Arterial Blood Partial Pressure CO2 77 *H 35-45 MMHG Arterial Blood Partial Pressure O2 52 L 79-93 MMHG Arterial Blood HCO3 35 H 23-27 MMOL/L Arterial Blood Total CO2 37.4 H 21.0-31.0 MMOL/L Arterial Blood Oxygen Saturation 87 L 94-100 % Arterial Blood Base Excess 8.1 H -2.5-2.5 MMOL/L To Test ARTLINE Blood Gas Ventilator Setting YES Blood Gas Inspired Oxygen 85% Sodium Level 142 135-145 MMOL/L Potassium Level 4.4 3.6-5.0 MMOL/L Chloride Level 102 98-107 MMOL/L Carbon Dioxide Level 30 21-32 MMOL/L Anion Gap 10 5-14 MMOL/L Blood Urea Nitrogen 10 7-18 MG/DL Creatinine 0.61 0.60-1.30 MG/DL Estimat Glomerular Filtration Rate 138 BUN/Creatinine Ratio 16 Glucose Level 111 H 70-105 MG/DL Calcium Level 7.9 L 8.5-10.1 MG/DL Phosphorus Level 2.8 2.3-4.7 MG/DL Magnesium Level 2.1 1.6-2.4 MG/DL Triglycerides Level 412 #H <150 MG/DL White Blood Count 12.1 H 4.3-11.0 10^3/uL Red Blood Count 3.44 L 4.30-5.52 10^6/uL Hemoglobin 9.8 L 13.3-17.7 g/dL Hematocrit 32 L 40-54 % Mean Corpuscular Volume 94 80-99 fL Mean Corpuscular Hemoglobin 29 25-34 pg Mean Corpuscular Hemoglobin Concent 30 L 32-36 g/dL Red Cell Distribution Width 15.5 H 10.0-14.5 % Platelet Count 252 130-400 10^3/uL Mean Platelet Volume 10.8 9.0-12.2 fL Immature Granulocyte % (Auto) 4 % Neutrophils (%) (Auto) 78 H 42-75 % Lymphocytes (%) (Auto) 8 L 12-44 % Monocytes (%) (Auto) 8 0-12 % Eosinophils (%) (Auto) 1 0-10 % Basophils (%) (Auto) 0 0-10 % Neutrophils # (Auto) 9.5 H 1.8-7.8 10^3/uL Lymphocytes # (Auto) 1.0 1.0-4.0 10^3/uL Monocytes # (Auto) 1.0 0.0-1.0 10^3/uL Eosinophils # (Auto) 0.1 0.0-0.3 10^3/uL Basophils # (Auto) 0.1 0.0-0.1 10^3/uL Immature Granulocyte # (Auto) 0.5 H 0.0-0.1 10^3/uL Test 10/31/21 11:25 Range/Units Glucometer 100 70-110 MG/DL Diagnosis/Problems Diagnosis/Problems (1) Paroxysmal atrial fibrillation Status: Acute Assessment & Plan: This was a new finding on this patient during this admission. This was most most likely brought on by the resuscitative efforts during his cardiopulmonary arrest and possibly Covid infection. Since his cardioversion on 10/18, he remains in sinus rhythm and sinus tachycardia on oral amiodarone. I decreased the dose of amiodarone on 10/26/2021. This will need to be tapered over time. Since the atrial fibrillation was most likely brought on by his cardiopulmonary arrest and lasted less than 48 hours, he does not necessarily need anticoagulation for the atrial fibrillation. However, he is on apixaban due to left lower extremity deep venous thrombosis. He has now had some possible dropped ventricular beats. I now have him on a low-dose of amiodarone at 100 mg twice daily. We will continue to taper this over the next few weeks assuming the patient survives Covid infection. (2) Primary hypertension Assessment & Plan: He has been intermittently on intravenous norepinephrine due to recurrent shock. All antihypertensive medication is on hold until he comes off vasopressor medication. I removed all of his outpatient antihypertensive medication from the inpatient list. (3) Mixed hyperlipidemia Assessment & Plan: Continue statin medication. (4) Septic shock Assessment & Plan: Most likely related to Covid pneumonia. As above, we will continue norepinephrine infusion and wean as tolerated. (5) Acute respiratory failure due to COVID-19 Status: Acute Assessment & Plan: The hospitalist and eICU are managing the ventilator. (6) Deep vein thrombosis of left lower extremity Assessment & Plan: Possibly related to Covid infection. He continues on apixaban. KAIT MORENO JR, MD Oct 31, 2021 09:19
--- NOTE | 2021-10-31 10:04 | Progress Note ---
Subjective Subjective/Events-last exam Afebrile, continues to have hypoxia at times in spite of maximal ventilatory support. Had prolonged time in the 80s per nursing with proning recovery yesterday. Objective Exam Last Set of Vital Signs Vital Signs Date Time Temp Pulse Resp B/P (MAP) Pulse Ox O2 Delivery O2 Flow Rate FiO2 10/31/21 08:13 77 119/49 10/31/21 08:09 26 10/31/21 08:00 36.1 10/31/21 08:00 97 Mechanical Ventilator 100 10/31/21 06:00 100.00 Capillary Refill : Less Than 3 Seconds I&O Intake and Output 10/31/21 00:00 Intake Total 2620 ml Output Total 2550 ml Balance 70 ml IV Total 1700 ml Tube Feeding 720 ml Other 200 ml Output Urine Total 2550 ml Chest Tube Drainage Total 0 ml General: Other (sedated, intubated) Lungs: Other (ronchi) Heart: Regular Rate, No Murmurs Abdomen: Normal Bowel Sounds, Soft Extremities: Other (trace pitting edema in legs) Results/Procedures Lab Laboratory Tests 10/30/21 11:15: Glucometer 141H 10/30/21 17:39: Glucometer 137H 10/30/21 23:25: Glucometer 133H 10/31/21 03:46: Blood Gas Puncture Site ARTLINE, Blood Gas Patient Temperature 36.0, Arterial Blood pH 7.28*L, Arterial Blood Partial Pressure CO2 77*H, Arterial Blood Partial Pressure O2 52L, Arterial Blood HCO3 35H, Arterial Blood Total CO2 37.4H , Arterial Blood Oxygen Saturation 87L, Arterial Blood Base Excess 8.1H, To Test ARTLINE, Blood Gas Ventilator Setting YES, Blood Gas Inspired Oxygen 85%, Sodium Level 142, Potassium Level 4.4, Chloride Level 102, Carbon Dioxide Level 30, Anion Gap 10, Blood Urea Nitrogen 10, Creatinine 0.61, Estimat Glomerular Filtration Rate 138, BUN/Creatinine Ratio 16, Glucose Level 111H, Calcium Level 7.9L, Phosphorus Level 2.8, Magnesium Level 2.1, Triglycerides Level 412#H 10/31/21 04:00: White Blood Count 12.1H, Red Blood Count 3.44L, Hemoglobin 9.8L, Hematocrit 32L, Mean Corpuscular Volume 94, Mean Corpuscular Hemoglobin 29, Mean Corpuscular Hemoglobin Concent 30L, Red Cell Distribution Width 15.5H, Platelet Count 252, Mean Platelet Volume 10.8, Immature Granulocyte % (Auto) 4, Neutrophils (%) (Auto) 78H, Lymphocytes (%) (Auto) 8L, Monocytes (%) (Auto) 8, Eosinophils (%) (Auto) 1, Basophils (%) (Auto) 0, Neutrophils # (Auto) 9.5H, Lymphocytes # (Auto) 1.0, Monocytes # (Auto) 1.0, Eosinophils # (Auto) 0.1, Basophils # (Auto) 0.1, Immature Granulocyte # (Auto) 0.5H Microbiology 10/25/21 Gram Stain - Final, Complete 10/25/21 Sputum Culture - Final, Complete Usual Mixed Pat Staphylococcus aureus Probable Klebsiella/Enterobact 10/14/21 Urine Culture - Final, Complete NO GROWTH 10/14/21 Blood Culture - Final, Complete No growth Assessment/Plan Assessment/Plan (1) Acute respiratory failure due to COVID-19 Status: Acute Assessment & Plan: On admission- Continued dexamethasone. Remdesevir started per ICU. D dimer elevated, CTA negative for PE. Since that time had Actemra, completed remdesevir, had dexamethasone increased to 10 mg daily on day 5 of dexamethasone. Ultimately ended up requiring intubation on 10/18, after which had cardiac arrest. 1/3- worsening hypoxia in spite of ventilatory support, requiring 100% FiO2 and increasing PEEP, appreciate [facility]anda ICU recommendations. Discussed with patient's brother, for now they are continuing aggressive care, Surgery notified of need for trach and PEG. 1/- Unfortunately has continued to worsen, continuing to increase PEEP and he has not improved, family wants to continue aggressive care at this time. 1/5- PEEP up to 16 and FiO2 remains at 100%, still having episodes of hypoxia, per family after more discussion, holding off on PEG and trach, but continuing aggressive care. (2) Pneumonia due to COVID-19 virus Status: Acute (3) Depression Status: Chronic (4) Hypertension Status: Chronic Assessment & Plan: Resumed home lisinopril 10/09 increase lisinopril to 20 mg daily /3- became hypotensive over the course of stay, anti-hypertensives stopped, requiring norepinephrine. (5) Hyperlipidemia Status: Chronic (6) Liver mass, right lobe Status: Acute Assessment & Plan: Seen incidentally on chest CT, needs non-urgent CT liver protocol for follow up. (7) Deep vein thrombosis Status: Acute Assessment & Plan: Right peroneal, left femoral into calf veins, started on treatment dose enoxaparin 10/11. Qualifiers: (8) Cardiorespiratory arrest Status: Acute Assessment & Plan: s/p cardiac arrest on 10/18 with multiple rounds of chest compression and ROSC x 2, after intubation. (9) Paroxysmal atrial fibrillation Status: Acute Assessment & Plan: 10/29/21 No further episodes since cardioversion, thought to be related to his arrest. Appreciate Cardiology recommendations, decreasing amiodarone today (weaning anyway, but decreasing further with some possible dropped beats) (10) Septic shock NEYL NEGRO MD Oct 31, 2021 10:04
--- NOTE | 2021-10-31 12:05 | Tele-ICU Progress Note ---
Subjective Date Seen by a Provider: Oct 31, 2021 Time Seen by a Provider: 12:05 Sepsis Event Evaluation Height, Weight, BMI Height: 5'10.00" Weight: 182lbs. 0.0oz. 82.243572ox; 25.79 BMI Method: Exam Exam Patient acknowledged, consented, and participated in this virtual visit which was conducted using real time audio/video Vital Signs Date Time Temp Pulse Resp B/P (MAP) Pulse Ox O2 Delivery O2 Flow Rate FiO2 10/31/21 11:47 36.2 10/31/21 10:40 76 26 94 100 10/31/21 10:00 76 26 137/56 (83) 97 Mechanical Ventilator 100.00 10/31/21 09:00 78 26 134/54 (80) 97 Mechanical Ventilator 100.00 10/31/21 08:13 77 119/49 10/31/21 08:10 77 117/49 10/31/21 08:09 76 26 118/49 10/31/21 08:08 77 117/49 10/31/21 08:00 77 26 120/50 (73) 92 Mechanical Ventilator 100.00 10/31/21 08:00 36.1 10/31/21 08:00 97 Mechanical Ventilator 100 10/31/21 07:00 77 10/31/21 07:00 76 26 125/52 (76) 93 Mechanical Ventilator 100.00 10/31/21 06:17 75 26 93 85 10/31/21 06:00 75 26 129/54 (79) 93 Mechanical Ventilator 100.00 10/31/21 05:00 75 26 133/55 (81) 93 Mechanical Ventilator 100.00 10/31/21 04:37 74 10/31/21 04:30 74 10/31/21 04:29 74 10/31/21 04:00 35.9 10/31/21 04:00 94 Mechanical Ventilator 100 10/31/21 04:00 75 26 129/53 (78) 92 Mechanical Ventilator 100.00 10/31/21 04:00 94 Mechanical Ventilator 100 10/31/21 03:03 78 26 92 85 10/31/21 03:00 77 26 148/71 (96) 91 Mechanical Ventilator 100.00 10/31/21 02:00 77 26 171/75 (107) 94 Mechanical Ventilator 100.00 10/31/21 01:00 79 10/31/21 01:00 79 26 165/73 (103) 93 Mechanical Ventilator 100.00 10/31/21 00:00 91 Mechanical Ventilator 100 10/31/21 00:00 79 26 165/75 (105) 94 Mechanical Ventilator 100.00 10/31/21 00:00 37.0 10/30/21 23:39 164/75 10/30/21 23:35 84 10/30/21 23:17 81 10/30/21 23:17 81 10/30/21 23:00 79 26 164/76 (105) 93 Mechanical Ventilator 100.00 10/30/21 22:00 78 26 161/76 (104) 92 Mechanical Ventilator 100.00 10/30/21 21:32 79 26 93 100 10/30/21 21:17 77 10/30/21 21:00 76 26 173/81 (111) 92 Mechanical Ventilator 100.00 10/30/21 20:00 36.6 10/30/21 20:00 91 Mechanical Ventilator 100 10/30/21 20:00 79 26 142/69 (93) 89 Mechanical Ventilator 100.00 10/30/21 19:00 100 10/30/21 19:00 100 26 119/59 (79) 85 Mechanical Ventilator 100.00 10/30/21 18:33 109 26 85 100 10/30/21 18:00 107 26 118/57 (77) 85 Mechanical Ventilator 100.00 10/30/21 17:03 122 157/66 10/30/21 17:02 121 165/67 10/30/21 17:00 113 26 162/67 (98) 83 Mechanical Ventilator 100.00 10/30/21 16:00 91 Mechanical Ventilator 100 10/30/21 16:00 82 26 107/50 (69) 87 Mechanical Ventilator 100.00 10/30/21 15:59 37.3 10/30/21 15:00 75 26 10/62 (45) 85 Mechanical Ventilator 100.00 10/30/21 14:49 75 26 83 100 10/30/21 14:00 73 26 119/55 (76) 92 Mechanical Ventilator 100.00 10/30/21 13:41 75 123/56 10/30/21 13:39 75 26 122/55 10/30/21 13:38 75 124/56 10/30/21 13:00 74 10/30/21 13:00 73 26 137/60 (85) 92 Mechanical Ventilator 100.00 I & O 10/31/21 07:00 Intake Total 3875 ml Output Total 1400 ml Balance 2475 ml Height & Weight Height: 5'10.00" Weight: 182lbs. 0.0oz. 82.913379dl; 25.79 BMI Method: General Appearance: No Apparent Distress HEENT: TMs Normal Neck: Supple Respiratory: Decreased Breath Sounds, Rhonci, Wheezing Cardiovascular: Regular Rate, Rhythm Capillary Refill: Less Than 3 Seconds Peripheral Pulses: 1+ Dorsalis Pedis (R), 1+ Left Dors-Pedis (L); 2+ Radial Pulses (R), 2+ Radial Pulses (L) Gastrointestinal: normal bowel sounds, non tender, soft Extremity: Normal Capillary Refill Neurologic/Psychiatric: Other (vent/sedated) Skin: Normal Color Lymphatic: No Adenopathy Results Lab Laboratory Tests 10/30/21 03:10 10/31/21 03:46 10/31/21 04:00 Assessment/Plan Assessment/Plan (Tele-ICU Physician , Progress Note ) Available chart/ vitals / labs / Images reviewed Video assessment done using teleICU camera, rest of exam as per RN Discussed with RN , EXAM PER RN Events overnight : Afebrile I/O = even Drips: Pressors: LEVO Sedation gtt: ( RASS ? paralized ) VENT SETTINGS and ABG reviewed Not candidate for SBT today REVIEWED Cardiovascular Stability / Sedation Score / FI02/PEEP / ABG / CXR Consultants: Hospital course: (10/08) 77 y/o female admitted for COVID+, transfer from other facility - , VT 20L 70% 10/09 changed to BIPAP 10/10 Bipap /8 100% _ precedex 0.4 10/11 - VT 35/80% prn bipap , precedex 0.4 - LEFT LE DVT 10/14 - VT 60L 75% , , BIPAP 60%- precedex 1.0, STARTED ZOSYN 10/15 - VT 40 100% , worsenign cxr on right , worsenign right sided pain 10/18 - ETT< card/pulm arrest - ROSC , PTX , chest tube on LEFT 10/18 - a fin RVR - cardioverted 10/19 - peep 18 60%, 10/20 - Thoravent on ADDITION to chest tube - both with leak, LEVO 10/21 - fio2 40% peep 5, follows commands 10/23 - fio2 75% peep 5 - BOTH CHEST TUBE sWITHOUT leak , tidal variations and minimal fluid drainage - fio2 70 % + 5 - CT CHEST with small PTX and large infitrate RLL 10/25- fio2 60 % +5 stareted Merrem and eraxis 10/30 - attempts to probe - desated more in probe position in 80 > 2 h 10/31 - PARALIZED A/P AHRF / ARDS due to severe COVID19 ( CTA neg for pe 10/07 - in other facility , reportedly - did not see report personally - INTUBATED - 10/18 - AC 26 - 375 -50 % fio2 peep 8 - CXR worsenign -R>>L - BOTH CHEST TUBE WITHOUT leak , no tidal variations and minimal fluid drainage CT chest 10/24 -with small PTX and large infitrate RLL- card/pulm arrest -10/18 ROSC , PTX - CTH negative 10/19 -was following commands as per coat maker post arrest Shock - levo 0.12 [id number]-Itumsfyeluj-8/COVID-19 PNA ( Symptom onset unknown now DX unvaccinted --Dexamethasone - chanhged to 10 qd with wheexzng 10/10- 10/20 - OFF STEROIDS NOW -Hypercoagulable state Full dose lovenox with DVT and PE Pneumomediastinum on ct 10/06- not seen on cxr f/up 10/18 - PTX , RIGHT - chest tube in , large airleak -Thoravent on ADDITION to chest tube 10/20 - PER SX clummped a fib RVR - cardioverted - 10/18 - in sinus , s/p amio bolus , on PO amio now RLL PNA - started on Zosyn 10/14 - > - resumed on 10/19 -> 10/24 - CT with significant infiltrate on RLL and secretiong is ETT - needs go back on abx - 10/25 sputum cx, MSSA, Kleb, Enterobac stareted Merrem and eraxis, might needs bronch Left lower extremity DVT dx 10/12 - small PE on CT 10/19 - fill dose lovenox - >eliquis 10/21 Hyperglycemia - ISS , close f/up on steroids will need trach and PEG as soon as possible as he is unlikely to be weaned off the ventilator anytime soon. POOR PROGNOSIS Lines : periph ( Central Line Necessity Reviewed) Hurd: 10/08 OG: Nutrition: TF to start 10/19 Analgesia: Anxiety/ delirium = VTE Prophylaxis: steve 80 bid- > eliquis Stress Ulcer Prophylaxis: po Plans in collaboration with bedside consultants and IM MDs. Discussed with RN to reach out if any questions or concerns A total of 40 minutes of critical care time was devoted to this patient today, required to treat and/or prevent further deterioration of critical care condition ( as above ) . JOHN CROW MD Oct 31, 2021 12:05
[2021-10-31] MEDS: AtorvaSTATin TABLET 10 MG TABLET PO SCH (20:53)
[2021-10-31] MEDS: traZODone 100 MG (DESYREL) TAB PO SCH (20:53)
[2021-10-31] MEDS: traZODone 50 MG (DESYREL) TAB PO SCH (20:53)
[2021-11-01] VITALS (30 sets, daily range): BP systolic 94–158; BP diastolic 51–67
[2021-11-01] MEDS: PROPOFOL DRIP (ICU) 100 ML IV SCH ×6 (00:28→23:38)
[2021-11-01] MEDS: MIDAZOLAM DRIP PRE-MIX 100 ML IV SCH ×2 (00:47→17:25)
[2021-11-01] MEDS: fentaNYL DRIP PRE-MIX 250 ML IV SCH ×5 (01:19→17:39)
[2021-11-01] MEDS: RT-ALBUTEROL HFA 8.5 GM INHALER IH SCH ×4 (02:16→21:23)
[2021-11-01] MEDS: CISATRACURIUM DRIP 250 ML IV SCH ×5 (04:00→23:37)
[2021-11-01 04:01] LABS: BASOPHILS # (AUTO) 0.1 10^3/uL (0.0-0.1); BASOPHILS % (AUTO) 0 % (0-10); EOSINOPHILS # (AUTO) 0.1 10^3/uL (0.0-0.3); EOSINOPHILS % (AUTO) 1 % (0-10); HEMATOCRIT 30 % (40-54); HEMOGLOBIN 9.1 g/dL (13.3-17.7); LYMPHOCYTES # (AUTO) 0.9 10^3/uL (1.0-4.0); LYMPHOCYTES % (AUTO) 8 % (12-44); MEAN CORPUSCULAR HEMOGLOBIN 29 pg (25-34); MEAN CORPUSCULAR HGB CONC 31 g/dL (32-36); MEAN CORPUSCULAR VOLUME 94 fL (80-99); MONOCYTES # (AUTO) 0.9 10^3/uL (0.0-1.0); MONOCYTES % (AUTO) 8 % (0-12); NEUTROPHILS # (AUTO) 9.3 10^3/uL (1.8-7.8); NEUTROPHILS % (AUTO) 81 % (42-75); PLATELET COUNT 239 10^3/uL (130-400); WHITE BLOOD COUNT 11.6 10^3/uL (4.3-11.0)
[2021-11-01 04:07] LABS: ABG BASE EXCESS 7.2 MMOL/L (-2.5-2.5); ABG OXYGEN SATURATION 88 % (94-100); ABG PCO2 75 MMHG (35-45); ABG PO2 56 MMHG (79-93); ABG TCO2 36.1 MMOL/L (21.0-31.0)
[2021-11-01 04:08] LABS: ALLENS TEST ARTLINE; INSPIRED O2 100; PATIENT TEMP 36.9; VENTILATOR YES
[2021-11-01 04:09] LABS: ABG PH 7.27 (7.37-7.43)
[2021-11-01 04:24] LABS: POTASSIUM 4.1 MMOL/L (3.6-5.0)
[2021-11-01 04:25] LABS: CALCIUM 7.8 MG/DL (8.5-10.1)
[2021-11-01 04:26] LABS: TOTAL PROTEIN 5.5 GM/DL (6.4-8.2)
[2021-11-01 04:28] LABS: BILIRUBIN,TOTAL 0.2 MG/DL (0.1-1.0)
[2021-11-01 04:30] LABS: CREATININE SERUM 0.62 MG/DL (0.60-1.30); PHOSPHORUS 2.5 MG/DL (2.3-4.7)
[2021-11-01 04:33] LABS: MAGNESIUM 2.1 MG/DL (1.6-2.4)
[2021-11-01] MEDS: POTASSIUM CL 10MEQ/50ML IVPB 50 ML IV SCH (04:33)
[2021-11-01] MEDS: inSUlin ASPART (NovoLOG) 1 UNIT/0.01 ML (CHARGE PER UNIT) SQ SCH ×3 (04:33→18:00)
[2021-11-01] MEDS: KCL 20 MEQ TAB (K-DUR) PO SCH (04:33)
[2021-11-01] MEDS: MAGNESIUM 1 GM/100 ML IVPB 100 ML IV SCH (08:01)
[2021-11-01] MEDS: LIDOCAINE 4% (SALONPAS) PATCH TOP SCH (09:00)
[2021-11-01] MEDS: DexMEDEtomidine 250 ML DRIP 250 ML IV SCH ×2 (09:25→17:26)
[2021-11-01] MEDS: ANIDULAFUNGIN INJECTION 100 MG in NS (IVPB) 100 ML IV SCH (09:27)
[2021-11-01] MEDS: PANTOPRAZOLE 40 MG (PROTONIX) VIAL IV SCH (09:28)
[2021-11-01] MEDS: ACYCLOVIR 400 MG TABLET (ZOVIRAX) PO SCH ×2 (09:28→17:26)
[2021-11-01] MEDS: AMIODARONE 200 MG (CORDARONE) TAB PO SCH ×2 (09:28→21:30)
[2021-11-01] MEDS: APIXABAN 5 MG (ELIQUIS) TABLET PO SCH ×2 (09:28→21:30)
[2021-11-01] MEDS ORDERED: BUMETANIDE 1 MG/4 ML (BUMEX) VIAL IV NR (10:19)
--- NOTE | 2021-11-01 11:19 | Cardiology Progress Note ---
Progress Note-Cardiology Events since last exam Date Seen by Provider: Nov 01, 2021 Time Seen by Provider: 11:18 Events since last exam I am following him due to atrial fibrillation. He remains in the intensive care unit intubated and sedated. He is still on low-dose norepinephrine infusion due to shock. When the nurses attempt to wean this, the patient has recurrent hypotension. He is still on high concentrations of oxygen on the ventilator. I did not see the patient due to his Covid status. I did speak with his nurse of today. Certain portions of this document may have been dictated utilizing voice recognition technology. Inherent to this technology, typographical and grammatical errors may exist. As much as I am diligent to identify and correct these mistakes, some errors may remain in the document. Vitals Last set of Vitals Signs Vital Signs 11/01/21 11/01/21 11/01/21 07:52 11:00 11:07 Temp 36.9 Pulse 75 Resp 26 B/P (MAP) 146/67 (93) Pulse Ox 98 O2 Delivery Mechanical Ventilator O2 Flow Rate 95.00 FiO2 80 Labs Labs Laboratory Tests 11/01/21 03:40 Exam Vital Signs Vital Signs Date Time Temp Pulse Resp B/P (MAP) Pulse Ox O2 Delivery O2 Flow Rate FiO2 11/01/21 11:07 75 26 98 80 11/01/21 11:00 146/67 (93) Mechanical Ventilator 95.00 11/01/21 07:52 36.9 Physical Exam I did not examine the patient due to his Covid status. Labs Laboratory Tests Test 10/31/21 11:25 10/31/21 17:50 10/31/21 23:37 11/01/21 03:40 Range/Units Glucometer 100 140 H 87 70-110 MG/DL White Blood Count 11.6 H 4.3-11.0 10^3/uL Red Blood Count 3.16 L 4.30-5.52 10^6/uL Hemoglobin 9.1 L 13.3-17.7 g/dL Hematocrit 30 L 40-54 % Mean Corpuscular Volume 94 80-99 fL Mean Corpuscular Hemoglobin 29 25-34 pg Mean Corpuscular Hemoglobin Concent 31 L 32-36 g/dL Red Cell Distribution Width 15.3 H 10.0-14.5 % Platelet Count 239 130-400 10^3/uL Mean Platelet Volume 11.0 9.0-12.2 fL Immature Granulocyte % (Auto) 2 % Neutrophils (%) (Auto) 81 H 42-75 % Lymphocytes (%) (Auto) 8 L 12-44 % Monocytes (%) (Auto) 8 0-12 % Eosinophils (%) (Auto) 1 0-10 % Basophils (%) (Auto) 0 0-10 % Neutrophils # (Auto) 9.3 H 1.8-7.8 10^3/uL Lymphocytes # (Auto) 0.9 L 1.0-4.0 10^3/uL Monocytes # (Auto) 0.9 0.0-1.0 10^3/uL Eosinophils # (Auto) 0.1 0.0-0.3 10^3/uL Basophils # (Auto) 0.1 0.0-0.1 10^3/uL Immature Granulocyte # (Auto) 0.2 H 0.0-0.1 10^3/uL Blood Gas Puncture Site ARTLINE Blood Gas Patient Temperature 36.9 Arterial Blood pH 7.27 *L 7.37-7.43 Arterial Blood Partial Pressure CO2 75 *H 35-45 MMHG Arterial Blood Partial Pressure O2 56 L 79-93 MMHG Arterial Blood HCO3 34 H 23-27 MMOL/L Arterial Blood Total CO2 36.1 H 21.0-31.0 MMOL/L Arterial Blood Oxygen Saturation 88 L 94-100 % Arterial Blood Base Excess 7.2 H -2.5-2.5 MMOL/L To Test ARTLINE Blood Gas Ventilator Setting YES Blood Gas Inspired Oxygen 100 Sodium Level 142 135-145 MMOL/L Potassium Level 4.1 3.6-5.0 MMOL/L Chloride Level 102 98-107 MMOL/L Carbon Dioxide Level 30 21-32 MMOL/L Anion Gap 10 5-14 MMOL/L Blood Urea Nitrogen 12 7-18 MG/DL Creatinine 0.62 0.60-1.30 MG/DL Estimat Glomerular Filtration Rate 136 BUN/Creatinine Ratio 19 Glucose Level 128 H 70-105 MG/DL Calcium Level 7.8 L 8.5-10.1 MG/DL Corrected Calcium 9.4 8.5-10.1 MG/DL Phosphorus Level 2.5 2.3-4.7 MG/DL Magnesium Level 2.1 1.6-2.4 MG/DL Total Bilirubin 0.2 0.1-1.0 MG/DL Aspartate Amino Transf (AST/SGOT) 25 5-34 U/L Alanine Aminotransferase (ALT/SGPT) 11 0-55 U/L Alkaline Phosphatase 103 40-136 U/L Total Protein 5.5 L 6.4-8.2 GM/DL Albumin 2.0 L 3.2-4.5 GM/DL Diagnosis/Problems Diagnosis/Problems (1) Paroxysmal atrial fibrillation Status: Acute Assessment & Plan: This was a new finding on this patient during this admission. This was most most likely brought on by the resuscitative efforts d uring his cardiopulmonary arrest and possibly Covid infection. Since his cardioversion on 10/18, he remains in sinus rhythm and sinus tachycardia on oral amiodarone. I decreased the dose of amiodarone on 10/26/2021. This will need to be tapered over time. Since the atrial fibrillation was most likely brought on by his cardiopulmonary arrest and lasted less than 48 hours, he does not necessarily need anticoagulation for the atrial fibrillation. However, he is on apixaban due to left lower extremity deep venous thrombosis. He has now had some possible dropped ventricular beats. I now have him on a low-dose of amiodarone at 100 mg twice daily. We will continue to taper this over the next few weeks assuming the patient survives Covid infection. (2) Primary hypertension Assessment & Plan: He has been intermittently on intravenous norepinephrine due to recurrent shock. All antihypertensive medication is on hold until he comes off vasopressor medication. I removed all of his outpatient antihypertensive medication from the inpatient list. (3) Mixed hyperlipidemia Assessment & Plan: Continue statin medication. (4) Septic shock Assessment & Plan: Most likely related to Covid pneumonia. As above, we will continue norepinephrine infusion and wean as tolerated. (5) Acute respiratory failure due to COVID-19 Status: Acute Assessment & Plan: The hospitalist and eICU are managing the ventilator. (6) Deep vein thrombosis of left lower extremity Assessment & Plan: Possibly related to Covid infection. He continues on apixaban. KAIT MORENO JR, MD Nov 01, 2021 11:19
--- NOTE | 2021-11-01 12:15 | Tele-ICU Progress Note ---
Subjective Date Seen by a Provider: Nov 01, 2021 Time Seen by a Provider: 10:09 Sepsis Event Evaluation Height, Weight, BMI Height: 5'10.00" Weight: 182lbs. 0.0oz. 82.060398uq; 25.79 BMI Method: Exam Exam Patient acknowledged, consented, and participated in this virtual visit which was conducted using real time audio/video Vital Signs Date Time Temp Pulse Resp B/P (MAP) Pulse Ox O2 Delivery O2 Flow Rate FiO2 11/01/21 11:35 36.1 11/01/21 11:21 Mechanical Ventilator 80.00 11/01/21 11:07 75 26 98 80 11/01/21 11:00 75 26 146/67 (93) 98 Mechanical Ventilator 95.00 11/01/21 10:00 75 26 149/67 (94) 97 Mechanical Ventilator 95.00 11/01/21 09:27 85 158/66 11/01/21 09:26 85 158/66 11/01/21 09:25 85 158/66 11/01/21 09:00 76 26 143/66 (91) 97 Mechanical Ventilator 95.00 11/01/21 08:00 77 26 148/66 (93) 96 Mechanical Ventilator 95.00 11/01/21 07:55 Mechanical Ventilator 95.00 11/01/21 07:52 36.9 11/01/21 07:48 85 26 96 95 11/01/21 07:00 78 26 143/61 (88) 97 Mechanical Ventilator 100.00 11/01/21 07:00 81 11/01/21 06:00 75 26 148/60 (89) 94 Mechanical Ventilator 100.00 11/01/21 05:00 73 26 145/59 (87) 95 Mechanical Ventilator 100.00 11/01/21 04:00 92 Mechanical Ventilator 100 11/01/21 04:00 73 26 145/58 (87) 93 Mechanical Ventilator 100.00 11/01/21 03:44 36.9 11/01/21 03:00 76 26 135/56 (82) 93 Mechanical Ventilator 100.00 11/01/21 02:17 73 26 94 100 11/01/21 02:00 73 26 129/56 (80) 92 Mechanical Ventilator 100.00 11/01/21 01:00 75 11/01/21 01:00 75 26 101/56 (71) 92 Mechanical Ventilator 100.00 11/01/21 00:47 75 116/59 11/01/21 00:30 36.4 11/01/21 00:28 76 145/58 11/01/21 00:28 76 130/60 11/01/21 00:00 76 26 114/56 (75) 88 Mechanical Ventilator 100.00 11/01/21 00:00 89 Mechanical Ventilator 100 10/31/21 23:00 77 26 110/57 (74) 89 Mechanical Ventilator 100.00 10/31/21 22:48 80 144/60 10/31/21 22:00 86 26 120/60 (80) 88 Mechanical Ventilator 100.00 10/31/21 21:55 85 26 90 100 10/31/21 21:00 71 26 112/60 (77) 93 Mechanical Ventilator 100.00 10/31/21 20:53 72 116/61 10/31/21 20:00 93 Mechanical Ventilator 100 10/31/21 20:00 72 26 99/56 (70) 94 Mechanical Ventilator 100.00 10/31/21 20:00 36.0 10/31/21 19:00 71 10/31/21 19:00 71 26 127/56 (79) 94 Mechanical Ventilator 100.00 10/31/21 18:51 71 26 94 100 10/31/21 18:00 76 26 134/55 (81) 91 Mechanical Ventilator 100.00 10/31/21 17:19 75 154/66 10/31/21 17:18 75 154/66 10/31/21 17:00 75 26 147/63 (91) 99 Mechanical Ventilator 100.00 10/31/21 16:00 92 Mechanical Ventilator 100 10/31/21 16:00 76 26 144/62 (89) 98 Mechanical Ventilator 100.00 10/31/21 16:00 36.3 10/31/21 15:00 75 26 144/62 (89) 97 Mechanical Ventilator 100.00 10/31/21 14:27 75 26 97 100 10/31/21 14:00 75 26 134/59 (84) 97 Mechanical Ventilator 100.00 10/31/21 13:11 76 158/67 10/31/21 13:00 75 26 143/61 (88) 94 Mechanical Ventilator 100.00 10/31/21 13:00 76 I & O 11/01/21 07:00 Intake Total 2460 ml Output Total 1775 ml Balance 685 ml Height & Weight Height: 5'10.00" Weight: 182lbs. 0.0oz. 82.389254kk; 25.79 BMI Method: General Appearance: No Apparent Distress HEENT: TMs Normal Neck: Supple Respiratory: Decreased Breath Sounds, Rhonci, Wheezing Cardiovascular: Regular Rate, Rhythm Capillary Refill: Less Than 3 Seconds Peripheral Pulses: 1+ Dorsalis Pedis (R), 1+ Left Dors-Pedis (L); 2+ Radial Pulses (R), 2+ Radial Pulses (L) Gastrointestinal: normal bowel sounds, non tender, soft Extremity: Normal Capillary Refill Neurologic/Psychiatric: Other (vent/sedated) Skin: Normal Color Lymphatic: No Adenopathy Results Lab Laboratory Tests 10/31/21 03:46 10/31/21 04:00 11/01/21 03:40 Assessment/Plan Assessment/Plan (Tele-ICU Physician , Progress Note ) Available chart/ vitals / labs / Images reviewed Video assessment done using teleICU camera, rest of exam as per RN Discussed with RN , EXAM PER RN Events overnight : Afebrile I/O = even Drips: Pressors: LEVO Sedation gtt: ( RASS precedex , fent 300 anyl prop 50 + paralized ) VENT SETTINGS and ABG reviewed Not candidate for SBT today REVIEWED Cardiovascular Stability / Sedation Score / FI02/PEEP / ABG / CXR Consultants: Hospital course: (10/08) 77 y/o female admitted for COVID+, transfer from other facility - , VT 20L 70% 10/09 changed to BIPAP 10/10 Bipap 100% _ precedex 0.4 10/11 - VT 35/80% prn bipap , precedex 0.4 - LEFT LE DVT 10/14 - VT 60L 75% , , BIPAP 60%- precedex 1.0, STARTED ZOSYN 10/15 - VT 40 100% , worsenign cxr on right , worsenign right sided pain 10/18 - ETT< card/pulm arrest - ROSC , PTX , chest tube on LEFT 10/18 - a fin RVR - cardioverted 10/19 - peep 18 60%, 10/20 - Thoravent on ADDITION to chest tube - both with leak, LEVO 10/21 - fio2 40% peep 5, follows commands 10/23 - fio2 75% peep 5 - BOTH CHEST TUBE sWITHOUT leak , tidal variations and minimal fluid drainage - fio2 70 % + 5 - CT CHEST with small PTX and large infitrate RLL 10/25- fio2 60 % +5 stareted Merrem and eraxis 10/30 - attempts to probe - desated more in probe position in 80 > 2 h 10/31 - PARALIZED peep 16 95% PAP 50 A/P AHRF / ARDS due to severe COVID19 ( CTA neg for pe 10/07 - in other facility , reportedly - did not see report personally - INTUBATED - 10/18 - AC 26 375 - peep 16 95% PAP 50 CT chest 10/24 -with small PTX and large infitrate RL try diuresis gentle 11/01 card/pulm arrest -10/18 ROSC , PTX - CTH negative 10/19 -was following commands as per box nailer post arrest - PARALIZED now Shock - levo 0.12 BBFC-Vsxftfllesy-4/COVID-19 PNA ( Symptom onset unknown now DX unvaccinted --Dexamethasone - chanhged to 10 qd with wheexzng 10/10- 10/20 - OFF STEROIDS NOW -Hypercoagulable state Full dose lovenox with DVT and PE Pneumomediastinum on ct 10/06- not seen on cxr f/up 10/18 - PTX , RIGHT - chest tube clummped -Thoravent on ADDITION to chest tube 10/20 - removed now a fib RVR - cardioverted - 10/18 - in sinus , s/p amio bolus , on PO amio now RLL PNA - started on Zosyn 10/14 - > - resumed on 10/19 -> 10/24 - CT with significant infiltrate on RLL and secretiong is ETT - needs go back on abx - 10/25 sputum cx, MSSA, Kleb, Enterobac stareted Merrem and eraxis Left lower extremity DVT dx 10/12 - small PE on CT 10/19 - fill dose lovenox - >eliquis 10/21 Hyperglycemia - ISS , close f/up will need trach and PEG as soon as possible as he is unlikely to be weaned off the ventilator anytime soon. POOR PROGNOSIS Lines : Central Line Necessity Reviewed) Hurd: 10/08 OG: Nutrition: TF to start 10/19 Analgesia: Anxiety/ delirium = VTE Prophylaxis: steve 80 bid- > eliquis Stress Ulcer Prophylaxis: po Plans in collaboration with bedside consultants and IM MDs. Discussed with RN to reach out if any questions or concerns A total of 40 minutes of critical care time was devoted to this patient today, required to treat and/or prevent further deterioration of critical care condition ( as above ) . JOHN CROW MD Nov 01, 2021 12:15
--- NOTE | 2021-11-01 13:18 | Progress Note ---
Subjective Subjective/Events-last exam Afebrile, worsening PO2 still in spite of maximal ventilatory support. Objective Exam Last Set of Vital Signs Vital Signs Date Time Temp Pulse Resp B/P (MAP) Pulse Ox O2 Delivery O2 Flow Rate FiO2 11/01/21 12:32 76 11/01/21 11:35 36.1 11/01/21 11:21 Mechanical Ventilator 80.00 11/01/21 11:07 26 98 80 11/01/21 11:00 146/67 (93) Capillary Refill : Less Than 3 Seconds I&O Intake and Output 11/01/21 00:00 Intake Total 2705 ml Output Total 1225 ml Balance 1480 ml IV Total 1450 ml Tube Feeding 660 ml Other 595 ml Output Urine Total 1225 ml Chest Tube Drainage Total 0 ml General: Other (intubated, sedated) Lungs: Other (ronchi) Heart: Regular Rate, Normal S1 Abdomen: Normal Bowel Sounds, Soft Extremities: No Edema Results/Procedures Lab Laboratory Tests 10/31/21 17:50: Glucometer 140H 10/31/21 23:37: Glucometer 87 11/01/21 03:40: White Blood Count 11.6H, Red Blood Count 3.16L, Hemoglobin 9.1L, Hematocrit 30L, Mean Corpuscular Volume 94, Mean Corpuscular Hemoglobin 29, Mean Corpuscular Hemoglobin Concent 31L, Red Cell Distribution Width 15.3H, Platelet Count 239, Mean Platelet Volume 11.0, Immature Granulocyte % (Auto) 2, Neutrophils (%) (Auto) 81H, Lymphocytes (%) (Auto) 8L, Monocytes (%) (Auto) 8, Eosinophils (%) (Auto) 1, Basophils (%) (Auto) 0, Neutrophils # (Auto) 9.3H, Lymphocytes # (Auto) 0.9L, Monocytes # (Auto) 0.9, Eosinophils # (Auto) 0.1, Basophils # (Auto) 0.1, Immature Granulocyte # (Auto) 0.2H, Blood Gas Puncture Site ARTLINE, Blood Gas Patient Temperature 36.9, Arterial Blood pH 7.27*L, Arterial Blood Partial Pressure CO2 75*H, Arterial Blood Partial Pressure O2 56L, Arterial Blood HCO3 34H, Arterial Blood Total CO2 36.1H, Arterial Blood Oxygen Saturation 88L, Arterial Blood Base Excess 7.2H, To Test ARTLINE, Blood Gas Ventilator Setting YES, Blood Gas Inspired Oxygen 100, Sodium Level 142, Potassium Level 4.1, Chloride Level 102, Carbon Dioxide Level 30, Anion Gap 10, Blood Urea Nitro gen 12, Creatinine 0.62, Estimat Glomerular Filtration Rate 136, BUN/Creatinine Ratio 19, Glucose Level 128H, Calcium Level 7.8L, Corrected Calcium 9.4, Phosphorus Level 2.5, Magnesium Level 2.1, Total Bilirubin 0.2, Aspartate Amino Transf (AST/SGOT) 25, Alanine Aminotransferase (ALT/SGPT) 11, Alkaline Phosphatase 103, Total Protein 5.5L, Albumin 2.0L 11/01/21 11:21: Glucometer 137H Microbiology 10/25/21 Gram Stain - Final, Complete 10/25/21 Sputum Culture - Final, Complete Usual Mixed Pat Staphylococcus aureus Probable Klebsiella/Enterobact 10/14/21 Urine Culture - Final, Complete NO GROWTH 10/14/21 Blood Culture - Final, Complete No growth Assessment/Plan Assessment/Plan (1) Acute respiratory failure due to COVID-19 Status: Acute Assessment & Plan: On admission- Continued dexamethasone. Remdesevir started per ICU. D dimer elevated, CTA negative for PE. Since that time had Actemra, completed remdesevir, had dexamethasone increased to 10 mg daily on day 5 of dexamethasone. Ultimately ended up requiring intubation on 10/18, after which had cardiac arrest. 1/3- worsening hypoxia in spite of ventilatory support, requiring 100% FiO2 and increasing PEEP, appreciate [facility] ICU recommendations. Discussed with patient's brother, for now they are continuing aggressive care, Surgery notified of need for trach and PEG. 1/- Unfortunately has continued to worsen, continuing to increase PEEP and he has not improved, family wants to continue aggressive care at this time. 1/5- PEEP up to 16 and FiO2 remains at 100%, still having episodes of hypoxia, per family after more discussion, holding off on PEG and trach, but continuing aggressive care. (2) Pneumonia due to COVID-19 virus Status: Acute (3) Depression Status: Chronic (4) Hypertension Status: Chronic Assessment & Plan: Resumed home lisinopril 10/09 increase lisinopril to 20 mg daily /3- became hypotensive over the course of stay, anti-hypertensives stopped, requiring norepinephrine. (5) Hyperlipidemia Status: Chronic (6) Liver mass, right lobe Status: Acute Assessment & Plan: Seen incidentally on chest CT, needs non-urgent CT liver protocol for follow up. (7) Deep vein thrombosis Status: Acute Assessment & Plan: Right peroneal, left femoral into calf veins, started on treatment dose enoxaparin 10/11. Qualifiers: (8) Cardiorespiratory arrest Status: Acute Assessment & Plan: s/p cardiac arrest on 10/18 with multiple rounds of chest compression and ROSC x 2, after intubation. (9) Paroxysmal atrial fibrillation Status: Acute Assessment & Plan: 10/29/21 No further episodes since cardioversion, thought to be related to his arrest. Appreciate Cardiology recommendations, decreasing amiodarone today (weaning anyway, but decreasing further with some possible dropped beats) (10) Septic shock NELY NEGRO MD Nov 01, 2021 13:17
[2021-11-01] MEDS: NOREPINEPHRINE 8 MG/250 ML 250 ML IV SCH (14:07)
[2021-11-01] MEDS: traZODone 100 MG (DESYREL) TAB PO SCH (21:30)
[2021-11-01] MEDS: traZODone 50 MG (DESYREL) TAB PO SCH (21:30)
[2021-11-01] MEDS: AtorvaSTATin TABLET 10 MG TABLET PO SCH (21:30)
[2021-11-02] VITALS (29 sets, daily range): BP systolic 100–152; BP diastolic 48–69
[2021-11-02] MEDS: inSUlin ASPART (NovoLOG) 1 UNIT/0.01 ML (CHARGE PER UNIT) SQ SCH ×4 (00:28→18:00)
[2021-11-02] MEDS: fentaNYL DRIP PRE-MIX 250 ML IV SCH ×5 (01:45→18:27)
[2021-11-02] MEDS: RT-ALBUTEROL HFA 8.5 GM INHALER IH SCH ×4 (01:50→22:05)
[2021-11-02] MEDS: DexMEDEtomidine 250 ML DRIP 250 ML IV SCH ×3 (03:25→22:44)
[2021-11-02 03:45] LABS: ABG BASE EXCESS 7.7 MMOL/L (-2.5-2.5); ABG OXYGEN SATURATION 89 % (94-100); ABG PO2 53 MMHG (79-93); ABG TCO2 36.6 MMOL/L (21.0-31.0); BASOPHILS # (AUTO) 0.1 10^3/uL (0.0-0.1); BASOPHILS % (AUTO) 1 % (0-10); EOSINOPHILS # (AUTO) 0.2 10^3/uL (0.0-0.3); EOSINOPHILS % (AUTO) 2 % (0-10); HEMATOCRIT 31 % (40-54); HEMOGLOBIN 9.4 g/dL (13.3-17.7); LYMPHOCYTES # (AUTO) 0.9 10^3/uL (1.0-4.0); LYMPHOCYTES % (AUTO) 9 % (12-44); MEAN CORPUSCULAR HEMOGLOBIN 28 pg (25-34); MEAN CORPUSCULAR HGB CONC 30 g/dL (32-36); MEAN CORPUSCULAR VOLUME 93 fL (80-99); MEAN PLATELET VOLUME 11.3 fL (9.0-12.2); MONOCYTES % (AUTO) 9 % (0-12); NEUTROPHILS # (AUTO) 8.1 10^3/uL (1.8-7.8); NEUTROPHILS % (AUTO) 77 % (42-75); PLATELET COUNT 281 10^3/uL (130-400); WHITE BLOOD COUNT 10.5 10^3/uL (4.3-11.0)
[2021-11-02 03:46] LABS: ABG PCO2 71 MMHG (35-45)
[2021-11-02 03:48] LABS: ALLENS TEST ART LINE; INSPIRED O2 75%; PATIENT TEMP 35.6; VENTILATOR YES
[2021-11-02 03:58] LABS: ALBUMIN 2.1 GM/DL (3.2-4.5); POTASSIUM 3.6 MMOL/L (3.6-5.0)
[2021-11-02 04:01] LABS: TOTAL PROTEIN 5.8 GM/DL (6.4-8.2)
[2021-11-02 04:03] LABS: BILIRUBIN,TOTAL 0.2 MG/DL (0.1-1.0)
[2021-11-02 04:04] LABS: PHOSPHORUS 2.2 MG/DL (2.3-4.7)
[2021-11-02 04:05] LABS: CREATININE SERUM 0.56 MG/DL (0.60-1.30)
[2021-11-02 04:07] LABS: MAGNESIUM 2.2 MG/DL (1.6-2.4)
[2021-11-02] MEDS: MAGNESIUM 1 GM/100 ML IVPB 100 ML IV SCH (04:19)
[2021-11-02] MEDS: KCL 20 MEQ TAB (K-DUR) PO SCH (04:20)
[2021-11-02] MEDS: POTASSIUM CL 10MEQ/50ML IVPB 50 ML IV SCH ×3 (04:20→04:36)
[2021-11-02] MEDS: CISATRACURIUM DRIP 250 ML IV SCH ×5 (04:35→23:43)
--- NOTE | 2021-11-02 05:46 | Diagnostic Imaging Report ---
Reason for examination: Endotracheal tube, Covid positive with infiltrates. Semiupright AP portable chest was obtained and compared to 10/31/2021. The ET tube tip is at the thoracic inlet. NG tube is in place but the tip is not visible. A right chest tube is in place with no pneumothorax. Right subclavian central line projects to the mid SVC. Extensive bilateral 5 lobe infiltrates may be slightly improved in the left upper lobe but are otherwise unchanged. IMPRESSION: 1. Support lines and tubes as described. 2. No pneumothorax. 3. Bilateral 5 lobe pulmonary infiltrates may be slightly improved in the left upper lobe but are otherwise unchanged. Dictated by: Dictated on workstation # [id number]
[2021-11-02] MEDS: PROPOFOL DRIP (ICU) 100 ML IV SCH ×4 (07:45→22:41)
--- NOTE | 2021-11-02 08:46 | Cardiology Progress Note ---
Progress Note-Cardiology Events since last exam Date Seen by Provider: Nov 02, 2021 Time Seen by Provider: 08:43 Events since last exam I am following him due to paroxysmal atrial fibrillation. He remains in the intensive care unit intubated and sedated. Over the past 24 hours, the nurse has been able to titrate down his oxygen to 70% and the norepinephrine has also been tapered down. The patient has not had recurrent atrial fibrillation. I did not see the patient due to his Covid status. I did speak with his nurse of today. Dr. Romero will be covering for the weekend. Please call if you have any que stions. Certain portions of this document may have been dictated utilizing voice recognition technology. Inherent to this technology, typographical and grammatical errors may exist. As much as I am diligent to identify and correct these mistakes, some errors may remain in the document. Vitals Last set of Vitals Signs Vital Signs 11/02/21 11/02/21 11/02/21 03:10 07:49 08:00 Temp 36.0 Pulse 76 Resp 26 B/P (MAP) 141/60 (87) Pulse Ox 95 O2 Delivery Mechanical Ventilator O2 Flow Rate 75.00 FiO2 75 Labs Labs Laboratory Tests 11/02/21 03:25 Exam Vital Signs Vital Signs Date Time Temp Pulse Resp B/P (MAP) Pulse Ox O2 Delivery O2 Flow Rate FiO2 11/02/21 08:00 76 26 141/60 (87) 95 Mechanical Ventilator 75.00 11/02/21 07:49 75 11/02/21 03:10 36.0 Physical Exam I did not see the patient due to his Covid status. Labs Laboratory Tests Test 11/01/21 11:21 11/01/21 17:21 11/01/21 23:33 11/02/21 03:25 Range/Units Glucometer 137 H 143 H 115 H 70-110 MG/DL White Blood Count 10.5 4.3-11.0 10^3/uL Red Blood Count 3.35 L 4.30-5.52 10^6/uL Hemoglobin 9.4 L 13.3-17.7 g/dL Hematocrit 31 L 40-54 % Mean Corpuscular Volume 93 80-99 fL Mean Corpuscular Hemoglobin 28 25-34 pg Mean Corpuscular Hemoglobin Concent 30 L 32-36 g/dL Red Cell Distribution Width 15.5 H 10.0-14.5 % Platelet Count 281 130-400 10^3/uL Mean Platelet Volume 11.3 9.0-12.2 fL Immature Granulocyte % (Auto) 3 % Neutrophils (%) (Auto) 77 H 42-75 % Lymphocytes (%) (Auto) 9 L 12-44 % Monocytes (%) (Auto) 9 0-12 % Eosinophils (%) (Auto) 2 0-10 % Basophils (%) (Auto) 1 0-10 % Neutrophils # (Auto) 8.1 H 1.8-7.8 10^3/uL Lymphocytes # (Auto) 0.9 L 1.0-4.0 10^3/uL Monocytes # (Auto) 1.0 0.0-1.0 10^3/uL Eosinophils # (Auto) 0.2 0.0-0.3 10^3/uL Basophils # (Auto) 0.1 0.0-0.1 10^3/uL Immature Granulocyte # (Auto) 0.3 H 0.0-0.1 10^3/uL Blood Gas Puncture Site RT ARTLINE Blood Gas Patient Temperature 35.6 Arterial Blood pH 7.30 *L 7.37-7.43 Arterial Blood Partial Pressure CO2 71 *H 35-45 MMHG Arterial Blood Partial Pressure O2 53 L 79-93 MMHG Arterial Blood HCO3 34 H 23-27 MMOL/L Arterial Blood Total CO2 36.6 H 21.0-31.0 MMOL/L Arterial Blood Oxygen Saturation 89 L 94-100 % Arterial Blood Base Excess 7.7 H -2.5-2.5 MMOL/L To Test ART LINE Blood Gas Ventilator Setting YES Blood Gas Inspired Oxygen 75% Sodium Level 142 135-145 MMOL/L Potassium Level 3.6 3.6-5.0 MMOL/L Chloride Level 102 98-107 MMOL/L Carbon Dioxide Level 31 21-32 MMOL/L Anion Gap 9 5-14 MMOL/L Blood Urea Nitrogen 12 7-18 MG/DL Creatinine 0.56 L 0.60-1.30 MG/DL Estimat Glomerular Filtration Rate 153 BUN/Creatinine Ratio 21 Glucose Level 122 H 70-105 MG/DL Calcium Level 8.0 L 8.5-10.1 MG/DL Corrected Calcium 9.5 8.5-10.1 MG/DL Phosphorus Level 2.2 L 2.3-4.7 MG/DL Magnesium Level 2.2 1.6-2.4 MG/DL Total Bilirubin 0.2 0.1-1.0 MG/DL Aspartate Amino Transf (AST/SGOT) 20 5-34 U/L Alanine Aminotransferase (ALT/SGPT) 11 0-55 U/L Alkaline Phosphatase 102 40-136 U/L Total Protein 5.8 L 6.4-8.2 GM/DL Albumin 2.1 L 3.2-4.5 GM/DL Triglycerides Level 451 #H <150 MG/DL Diagnosis/Problems Diagnosis/Problems (1) Paroxysmal atrial fibrillation Status: Acute Assessment & Plan: This was a new finding on this patient during this admission. This was most most likely brought on by the resuscitative efforts during his cardiopulmonary arrest and possibly Covid infection. Since his cardioversion on 10/18, he remains in sinus rhythm and sinus tachycardia on oral amiodarone. I decreased the dose of amiodarone on 10/26/2021. I now have him on a low-dose of amiodarone at 100 mg twice daily. This will need to be tapered over time. Since the atrial fibrillation was most likely brought on by his cardiopulmonary arrest and lasted less than 48 hours, he does not necessarily need anticoagulation for the atrial fibrillation. However, he is on apixaban due to left lower extremity deep venous thrombosis. (2) Primary hypertension Assessment & Plan: He has been intermittently on intravenous norepinephrine due to recurrent shock. All antihypertensive medication is on hold until he comes off vasopressor medication. I removed all of his outpatient antihypertensive medication from the inpatient list. (3) Mixed hyperlipidemia Assessment & Plan: Continue statin medication. (4) Septic shock Assessment & Plan: Most likely related to Covid pneumonia. As above, we will continue norepinephrine infusion and wean as tolerated. (5) Acute respiratory failure due to COVID-19 Status: Acute Assessment & Plan: The hospitalist and eICU are managing the ventilator. (6) Deep vein thrombosis of left lower extremity Assessment & Plan: Possibly related to Covid infection. He continues on apixaban. KAIT MORENO JR, MD Nov 02, 2021 08:46
[2021-11-02] MEDS: AMIODARONE 200 MG (CORDARONE) TAB PO SCH ×2 (08:55→19:47)
[2021-11-02] MEDS: ACYCLOVIR 400 MG TABLET (ZOVIRAX) PO SCH ×2 (08:55→18:26)
[2021-11-02] MEDS: PANTOPRAZOLE 40 MG (PROTONIX) VIAL IV SCH (08:55)
[2021-11-02] MEDS: APIXABAN 5 MG (ELIQUIS) TABLET PO SCH ×2 (08:55→19:47)
[2021-11-02] MEDS: ANIDULAFUNGIN INJECTION 100 MG in NS (IVPB) 100 ML IV SCH (09:44)
[2021-11-02] MEDS: MIDAZOLAM DRIP PRE-MIX 100 ML IV SCH (09:45)
[2021-11-02] MEDS: LIDOCAINE 4% (SALONPAS) PATCH TOP SCH (10:07)
--- NOTE | 2021-11-02 10:53 | Tele-ICU Progress Note ---
Subjective Date Seen by a Provider: Nov 02, 2021 Time Seen by a Provider: 10:53 Sepsis Event Evaluation Height, Weight, BMI Height: 5'10.00" Weight: 182lbs. 0.0oz. 82.403719us; 25.79 BMI Method: Exam Exam Patient acknowledged, consented, and participated in this virtual visit which was conducted using real time audio/video Vital Signs Date Time Temp Pulse Resp B/P (MAP) Pulse Ox O2 Delivery O2 Flow Rate FiO2 11/02/21 10:34 76 26 94 70 11/02/21 10:00 77 26 128/56 (80) 94 Mechanical Ventilator 75.00 11/02/21 09:45 78 26 125/56 11/02/21 09:00 78 26 125/56 (79) 96 Mechanical Ventilator 75.00 11/02/21 08:00 76 26 141/60 (87) 95 Mechanical Ventilator 75.00 11/02/21 07:49 85 26 95 75 11/02/21 07:46 76 122/52 11/02/21 07:45 76 122/52 11/02/21 07:00 74 26 117/51 (73) 95 Mechanical Ventilator 75.00 11/02/21 07:00 77 11/02/21 06:00 76 26 122/52 (75) 95 Mechanical Ventilator 75.00 11/02/21 05:00 76 26 122/51 (74) 94 Mechanical Ventilator 75.00 11/02/21 04:22 92 Mechanical Ventilator 75 11/02/21 04:00 77 26 120/51 (74) 93 Mechanical Ventilator 75.00 11/02/21 03:25 84 149/60 11/02/21 03:10 36.0 11/02/21 03:00 84 26 128/52 (77) 92 Mechanical Ventilator 75.00 11/02/21 02:00 81 15 129/53 (78) 91 Mechanical Ventilator 75.00 11/02/21 01:50 82 26 91 75 11/02/21 01:00 70 11/02/21 01:00 70 26 101/48 (65) 93 Mechanical Ventilator 75.00 11/02/21 00:00 93 Mechanical Ventilator 75 11/02/21 00:00 69 26 107/50 (69) 94 Mechanical Ventilator 75.00 11/01/21 23:39 35.7 1/6/22 23:38 70 124/54 11/01/21 23:37 70 110/54 11/01/21 23:00 73 26 106/53 (70) 92 Mechanical Ventilator 75.00 11/01/21 22:25 35.8 11/01/21 22:00 69 26 113/51 (71) 92 Mechanical Ventilator 75.00 11/01/21 21:45 72 92/58 11/01/21 21:23 71 26 93 75 11/01/21 21:00 73 26 112/57 (75) 92 Mechanical Ventilator 75.00 11/01/21 20:00 70 26 106/54 (71) 92 Mechanical Ventilator 75.00 11/01/21 20:00 36.4 11/01/21 20:00 93 Mechanical Ventilator 75 11/01/21 19:00 73 26 112/57 (75) 93 Mechanical Ventilator 75.00 11/01/21 19:00 73 11/01/21 18:39 75 26 92 75 11/01/21 18:00 75 25 119/59 (79) 92 Mechanical Ventilator 75.00 11/01/21 17:26 73 132/62 11/01/21 17:25 73 26 132/62 11/01/21 17:00 73 26 132/62 (85) 94 Mechanical Ventilator 75.00 11/01/21 16:32 36.6 11/01/21 16:00 96 Mechanical Ventilator 100 11/01/21 16:00 73 26 139/64 (89) 93 Mechanical Ventilator 75.00 11/01/21 15:43 72 136/63 11/01/21 15:43 72 136/63 11/01/21 15:00 74 26 137/64 (88) 92 Mechanical Ventilator 80.00 11/01/21 14:57 Mechanical Ventilator 75.00 11/01/21 14:36 72 26 93 75 11/01/21 14:07 74 127/61 11/01/21 14:00 74 26 127/61 (83) 94 Mechanical Ventilator 80.00 11/01/21 13:00 78 26 120/58 (78) 93 Mechanical Ventilator 80.00 11/01/21 12:32 76 11/01/21 12:00 96 Mechanical Ventilator 100 11/01/21 12:00 80 26 136/63 (87) 93 Mechanical Ventilator 80.00 11/01/21 11:35 36.1 11/01/21 11:21 Mechanical Ventilator 80.00 11/01/21 11:07 75 26 98 80 11/01/21 11:00 75 26 146/67 (93) 98 Mechanical Ventilator 95.00 I & O 11/02/21 07:00 Intake Total 2460 ml Output Total 1850 ml Balance 610 ml Height & Weight Height: 5'10.00" Weight: 182lbs. 0.0oz. 82.965395dk; 25.79 BMI Method: General Appearance: No Apparent Distress HEENT: TMs Normal Neck: Supple Respiratory: Decreased Breath Sounds, Rhonci, Wheezing Cardiovascular: Regular Rate, Rhythm Capillary Refill: Less Than 3 Seconds Peripheral Pulses: 1+ Dorsalis Pedis (R), 1+ Left Dors-Pedis (L); 2+ Radial Pulses (R), 2+ Radial Pulses (L) Gastrointestinal: normal bowel sounds, non tender, soft Extremity: Normal Capillary Refill Neurologic/Psychiatric: Other (vent/sedated) Skin: Normal Color Lymphatic: No Adenopathy Results Lab Laboratory Tests 11/01/21 03:40 11/02/21 03:25 Assessment/Plan Assessment/Plan (Tele-ICU Physician , Progress Note ) Available chart/ vitals / labs / Images reviewed Video assessment done using teleICU camera, rest of exam as per RN Discussed with RN , EXAM PER RN Events overnight : Afebrile I/O = even Drips: Pressors: LEVO Sedation gtt: ( RASS precedex , fent 300 anyl prop 50 + paralized ) VENT SETTINGS and ABG reviewed Not candidate for SBT today REVIEWED Cardiovascular Stability / Sedation Score / FI02/PEEP / ABG / CXR Consultants: Hospital course: (10/08) 77 y/o female admitted for COVID+, transfer from other facility - , VT 20L 70% 10/09 changed to BIPAP 10/10 Bipap 15 /8 100% _ precedex 0.4 10/11 - VT 35/80% prn bipap , precedex 0.4 - LEFT LE DVT 10/14 - VT 60L 75% , , BIPAP 60%- precedex 1.0, STARTED ZOSYN 10/15 - VT 40 100% , worsenign cxr on right , worsenign right sided pain 10/18 - ETT< card/pulm arrest - ROSC , PTX , chest tube on LEFT 10/18 - a fin RVR - cardioverted 10/19 - peep 18 60%, 10/20 - Thoravent on ADDITION to chest tube - both with leak, LEVO 10/21 - fio2 40% peep 5, follows commands 10/23 - fio2 75% peep 5 - BOTH CHEST TUBE sWITHOUT leak , tidal variations and minimal fluid drainage - fio2 70 % + 5 - CT CHEST with small PTX and large infitrate RLL 10/25- fio2 60 % +5 stareted Merrem and eraxis 10/30 - attempts to probe - desated more in probe position in 80 > 2 h 10/31 - PARALIZED peep 16 95% PAP 50 , 11/01 - initiated gentle DIURESIS , bumex 0.5 qd 11/02 - down to 70% , trying off paralizIS A/P AHRF / ARDS due to severe COVID19 ( CTA neg for pe 10/07 - in other facility , reportedly - did not see report personally - INTUBATED - 10/18 - AC 26 - 375 - peep 16 95% PAP 50 CONTINUE diuresis gentle 11/01, trying to decrease paralitics card/pulm arrest -10/18 ROSC , PTX - CTH negative 10/19 -was following commands as per sign writer letterer or painter post arrest - PARALIZED now Shock - levo 0.12 - check cortisol level HFAY-Gxjlphajicp-4/COVID-19 PNA ( Symptom onset unknown now DX unvaccinted --Dexamethasone - chanhged to 10 qd with wheexzng 10/10- 10/20 - OFF STEROIDS NOW -Hypercoagulable state Full dose lovenox with DVT and PE Pneumomediastinum on ct 10/06- not seen on cxr f/up 10/18 - PTX , RIGHT - chest tube clummped -Thoravent on ADDITION to chest tube 10/20 - removed now a fib RVR - cardioverted - 10/18 - in sinus , s/p amio bolus , on PO amio now RLL PNA - started on Zosyn 10/14 - > - resumed on 10/19 -> 10/24 - CT with significant infiltrate on RLL and secretiong is ETT - needs go back on abx - 10/25 sputum cx, MSSA, Kleb, Enterobac , Merrem a1 -> 11/01 -cont eraxis Left lower extremity DVT dx 10/12 - small PE on CT 10/19 - fill dose lovenox - >eliquis 10/21 Hyperglycemia - ISS , close f/up Poor tolerance of TF - starting reglan 11/02 will need trach and PEG as soon as possible as he is unlikely to be weaned off the ventilator anytime soon. POOR PROGNOSIS 11/01 - DISCUSSED WITH BROTHER ( WHO IS MD - HOSPITALIST IN OTHER STATE ) Lines : Central Line Necessity Reviewed) Hurd: 10/08 OG: Nutrition: TF to start 10/19 Analgesia: Anxiety/ delirium = VTE Prophylaxis: steve 80 bid- > eliquis Stress Ulcer Prophylaxis: po Plans in collaboration with bedside consultants and IM MDs. Discussed with RN to reach out if any questions or concerns A total of 40 minutes of critical care time was devoted to this patient today, required to treat and/or prevent further deterioration of critical care condition ( as above ) . JOHN CROW MD Nov 02, 2021 10:53
[2021-11-02] MEDS: METOCLOPRAMIDE INJ 10 MG/2 ML (REGLAN) IVP SCH ×3 (13:19→23:04)
--- NOTE | 2021-11-02 13:45 | Progress Note ---
Subjective Subjective/Events-last exam Remains intubated, FiO2 weaned to 75%. Objective Exam Last Set of Vital Signs Vital Signs Date Time Temp Pulse Resp B/P (MAP) Pulse Ox O2 Delivery O2 Flow Rate FiO2 11/02/21 13:20 78 123/55 11/02/21 12:49 36.2 11/02/21 12:00 26 93 Mechanical Ventilator 75.00 11/02/21 11:28 75 Capillary Refill : Less Than 3 Seconds I&O Intake and Output 11/01/21 23:59 Intake Total 2510 ml Output Total 1850 ml Balance 660 ml IV Total 1250 ml Tube Feeding 600 ml Other 660 ml Output Urine Total 1850 ml Chest Tube Drainage Total 0 ml General: Other (intubated, sedated) Lungs: Other (ronchi) Heart: Regular Rate, No Murmurs Extremities: Other (1+ edema) Results/Procedures Lab Laboratory Tests 11/01/21 17:21: Glucometer 143H 11/01/21 23:33: Glucometer 115H 11/02/21 03:25: White Blood Count 10.5, Red Blood Count 3.35L, Hemoglobin 9.4L, Hematocrit 31L, Mean Corpuscular Volume 93, Mean Corpuscular Hemoglobin 28, Mean Corpuscular Hemoglobin Concent 30L, Red Cell Distribution Width 15.5H, Platelet Count 281, Mean Platelet Volume 11.3, Immature Granulocyte % (Auto) 3, Neutrophils (%) (Auto) 77H, Lymphocytes (%) (Auto) 9L, Monocytes (%) (Auto) 9, Eosinophils (%) (Auto) 2, Basophils (%) (Auto) 1, Neutrophils # (Auto) 8.1H, Lymphocytes # (Auto) 0.9L, Monocytes # (Auto) 1.0, Eosinophils # (Auto) 0.2, Basophils # (Auto) 0.1, Immature Granulocyte # (Auto) 0.3H, Blood Gas Puncture Site RT ARTLINE, Blood Gas Patient Temperature 35.6, Arterial Blood pH 7.30*L, Arterial Blood Partial Pressure CO2 71*H, Arterial Blood Partial Pressure O2 53L, Arterial Blood HCO3 34H, Arterial Blood Total CO2 36.6H, Arterial Blood Oxygen Saturation 89L, Arterial Blood Base Excess 7.7H, To Test ART LINE, Blood Gas Ventilator Setting YES, Blood Gas Inspired Oxygen 75%, Sodium Level 142, Potassium Level 3.6, Chloride Level 102, Carbon Dioxide Level 31, Anion Gap 9, Blood Urea Nitrogen 12, Creatinine 0.56L, Estimat Glomerular Filtration Rate 153, BUN/Creatinine Ratio 21, Glucose Level 122H, Calcium Level 8.0L, Corrected Calcium 9.5, Phosphorus Level 2.2L, Magnesium Level 2.2, Total Bilirubin 0.2, Aspartate Amino Transf (AST/SGOT) 20, Alanine Aminotransferase (ALT/SGPT) 11, A lkaline Phosphatase 102, Total Protein 5.8L, Albumin 2.1L, Triglycerides Level 451#H 11/02/21 12:24: Glucometer 138H 11/02/21 13:15: Microbiology 10/25/21 Gram Stain - Final, Complete 10/25/21 Sputum Culture - Final, Complete Usual Mixed Pat Staphylococcus aureus Probable Klebsiella/Enterobact 10/14/21 Urine Culture - Final, Complete NO GROWTH 10/14/21 Blood Culture - Final, Complete No growth Assessment/Plan Assessment/Plan (1) Acute respiratory failure due to COVID-19 Status: Acute Assessment & Plan: On admission- Continued dexamethasone. Remdesevir started per ICU. D dimer elevated, CTA negative for PE. Since that time had Actemra, completed remdesevir, had dexamethasone increased to 10 mg daily on day 5 of dexamethasone. Ultimately ended up requiring intubation on 10/18, after which had cardiac arrest. 10/29- worsening hypoxia in spite of ventilatory support, requiring 100% FiO2 and increasing PEEP, appreciate Maria Fernanda ICU recommendations. Discussed with patient's brother, for now they are continuing aggressive care, Surgery notified of need for trach and PEG. 10/30- Unfortunately has continued to worsen, continuing to increase PEEP and he has not improved, family wants to continue aggressive care at this time. 10/31- PEEP up to 16 and FiO2 remains at 100%, still having episodes of hypoxia, per family after more discussion, holding off on PEG and trach, but continuing aggressive care. 11/02- trying to diurese slightly and wean paralysis, discussed status with mother. (2) Pneumonia due to COVID-19 virus Status: Acute (3) Depression Status: Chronic (4) Hypertension Status: Chronic Assessment & Plan: Resumed home lisinopril 10/09 increase lisinopril to 20 mg daily 10/29- became hypotensive over the course of stay, anti-hypertensives stopped, requiring norepinephrine. 11/02- checking cortisol (5) Hyperlipidemia Status: Chronic (6) Liver mass, right lobe Status: Acute Assessment & Plan: Seen incidentally on chest CT, needs non-urgent CT liver protocol for follow up. (7) Deep vein thrombosis Status: Acute Assessment & Plan: Right peroneal, left femoral into calf veins, started on treatment dose enoxaparin 10/11, now on apixaban, may need transitioned back to enoxaparin a few days prior to trach/PEG if those are to occcur. Qualifiers: (8) Cardiorespiratory arrest Status: Acute Assessment & Plan: s/p cardiac arrest on 10/18 with multiple rounds of chest compression and ROSC x 2, after intubation. (9) Paroxysmal atrial fibrillation Status: Acute Assessment & Plan: 10/29/21 No further episodes since cardioversion, thought to be related to his arrest. Appreciate Cardiology recommendations, decreasing amiodarone today (weaning anyway, but decreasing further with some possible dropped beats) (10) Septic shock NELY NEGRO MD Nov 02, 2021 13:45
[2021-11-02] MEDS: traZODone 50 MG (DESYREL) TAB PO SCH (19:47)
[2021-11-02] MEDS: AtorvaSTATin TABLET 10 MG TABLET PO SCH (19:47)
[2021-11-02] MEDS: traZODone 100 MG (DESYREL) TAB PO SCH (19:47)
[2021-11-02] MEDS: NOREPINEPHRINE 8 MG/250 ML 250 ML IV SCH (21:41)
[2021-11-03] VITALS (30 sets, daily range): BP systolic 90–176; BP diastolic 51–77
[2021-11-03] MEDS: inSUlin ASPART (NovoLOG) 1 UNIT/0.01 ML (CHARGE PER UNIT) SQ SCH ×5 (00:28→23:02)
[2021-11-03] MEDS: fentaNYL DRIP PRE-MIX 250 ML IV SCH ×4 (01:30→17:01)
[2021-11-03] MEDS: RT-ALBUTEROL HFA 8.5 GM INHALER IH SCH ×4 (02:41→20:16)
[2021-11-03] MEDS: CISATRACURIUM DRIP 250 ML IV SCH ×5 (04:07→23:14)
[2021-11-03 04:28] LABS: ABG BASE EXCESS 9.2 MMOL/L (-2.5-2.5); ABG OXYGEN SATURATION 96 % (94-100); ABG PO2 68 MMHG (79-93); ABG TCO2 38.6 MMOL/L (21.0-31.0)
[2021-11-03 04:29] LABS: BASOPHILS # (AUTO) 0.1 10^3/uL (0.0-0.1); BASOPHILS % (AUTO) 1 % (0-10); EOSINOPHILS # (AUTO) 0.1 10^3/uL (0.0-0.3); EOSINOPHILS % (AUTO) 1 % (0-10); HEMATOCRIT 28 % (40-54); HEMOGLOBIN 8.3 g/dL (13.3-17.7); LYMPHOCYTES # (AUTO) 0.7 10^3/uL (1.0-4.0); LYMPHOCYTES % (AUTO) 6 % (12-44); MEAN CORPUSCULAR HEMOGLOBIN 28 pg (25-34); MEAN CORPUSCULAR HGB CONC 29 g/dL (32-36); MEAN CORPUSCULAR VOLUME 96 fL (80-99); MEAN PLATELET VOLUME 11.2 fL (9.0-12.2); MONOCYTES # (AUTO) 0.9 10^3/uL (0.0-1.0); MONOCYTES % (AUTO) 9 % (0-12); NEUTROPHILS # (AUTO) 8.5 10^3/uL (1.8-7.8); NEUTROPHILS % (AUTO) 79 % (42-75); PLATELET COUNT 251 10^3/uL (130-400); WHITE BLOOD COUNT 10.8 10^3/uL (4.3-11.0)
[2021-11-03 04:30] LABS: ABG PCO2 79 MMHG (35-45); ABG PH 7.28 (7.37-7.43)
[2021-11-03 04:31] LABS: ALLENS TEST ART LINE; INSPIRED O2 85%; PATIENT TEMP 36.1; VENTILATOR YES
[2021-11-03 04:40] LABS: ALBUMIN 1.9 GM/DL (3.2-4.5); POTASSIUM 3.8 MMOL/L (3.6-5.0)
[2021-11-03 04:41] LABS: CALCIUM 7.8 MG/DL (8.5-10.1)
[2021-11-03 04:42] LABS: TOTAL PROTEIN 5.3 GM/DL (6.4-8.2)
[2021-11-03 04:44] LABS: BILIRUBIN,TOTAL 0.2 MG/DL (0.1-1.0)
[2021-11-03 04:46] LABS: CREATININE SERUM 0.59 MG/DL (0.60-1.30); PHOSPHORUS 2.5 MG/DL (2.3-4.7)
[2021-11-03 04:49] LABS: MAGNESIUM 2.2 MG/DL (1.6-2.4)
--- NOTE | 2021-11-03 04:51 | Diagnostic Imaging Report ---
INDICATION: Respiratory failure AP view of the chest is obtained. Since the study of one day earlier, there is continued dense opacification of both lungs, diffusely. Endotracheal tube is in place with tip at the level of the thoracic inlet. Nasogastric tube passes below the diaphragm. Right central venous catheter in stable position with tip projecting over the midsuperior vena cava. Right thoracostomy tube remains in place without evidence of pneumothorax. IMPRESSION: Dense opacification of the lungs, diffusely without evidence of other acute abnormality or significant adverse change. Dictated by: Dictated on workstation # [id number]
[2021-11-03] MEDS: MAGNESIUM 1 GM/100 ML IVPB 100 ML IV SCH (04:54)
[2021-11-03] MEDS: KCL 20 MEQ TAB (K-DUR) PO SCH (04:54)
[2021-11-03] MEDS: POTASSIUM CL 10MEQ/50ML IVPB 50 ML IV SCH (04:54)
[2021-11-03] MEDS: MIDAZOLAM DRIP PRE-MIX 100 ML IV SCH ×2 (05:05→20:03)
[2021-11-03] MEDS: METOCLOPRAMIDE INJ 10 MG/2 ML (REGLAN) IVP SCH ×4 (05:36→23:14)
[2021-11-03] MEDS: PROPOFOL DRIP (ICU) 100 ML IV SCH ×5 (06:32→22:19)
[2021-11-03] MEDS: DexMEDEtomidine 250 ML DRIP 250 ML IV SCH (06:33)
--- NOTE | 2021-11-03 07:29 | Tele-ICU Progress Note ---
Progress Note video rounds completed 51 y/o with Covid PNA, intubated and awaiting trach/PEG Had CPA on 10/18 with subsequent chest tube Had DVT/PE, on apixaban. Currently full code. Vent settings: 30/375/100%/14 AB.28/79/68/36 Focused Exam Height, Weight, BMI Height: 5'10.00" Weight: 182lbs. 0.0oz. 82.698069oc; 25.79 BMI Method: Laboratory Tests 11/03/21 04:15 LOWELL GARZA MD Nov 03, 2021 07:29
[2021-11-03] MEDS: APIXABAN 5 MG (ELIQUIS) TABLET PO SCH ×2 (08:13→20:02)
[2021-11-03] MEDS: PANTOPRAZOLE 40 MG (PROTONIX) VIAL IV SCH (08:13)
[2021-11-03] MEDS: BUMETANIDE 1 MG/4 ML (BUMEX) VIAL IV SCH (08:13)
[2021-11-03] MEDS: ACYCLOVIR 400 MG TABLET (ZOVIRAX) PO SCH ×2 (08:13→17:00)
[2021-11-03] MEDS: ANIDULAFUNGIN INJECTION 100 MG in NS (IVPB) 100 ML IV SCH (08:21)
[2021-11-03] MEDS: LIDOCAINE 4% (SALONPAS) PATCH TOP SCH (08:21)
[2021-11-03] MEDS: AMIODARONE 200 MG (CORDARONE) TAB PO SCH ×2 (08:21→20:02)
--- NOTE | 2021-11-03 09:41 | Progress Note - Hospitalist ---
Subjective HPI/CC On Admission Date Seen by Provider: Nov 03, 2021 Time Seen by Provider: 12:30 Admisison Planning May Need Admission (Planning): 08:00 (JAVIER ORDONEZ MD) Progress Progress Note #1: Time: 08:11 Progress Note 51-year-old male presents to the emergency department with his parents chief complaint of increasing shortness of breath, cough, body aches headache, nausea vomiting and diarrhea. Tells us initially that he was seen by [facility] 2 or 3 days ago, tested negative for Covid. Later his father contributes to the history stating that the patient was in fact told that he had pneumonia and was started on an antibiotic however the patient cannot recall what that was when asked. Patient states that he does not and has not ever smoked. He does not work around fumes or smoke. He states his cough is nonproductive. Has had profoundly severe shortness of breath with exertion over the last 24 hours. Takes medication for cholesterol and hypertension although did not take his medicine for hypertension this morning. Denies known sick contacts with Covid. Is not vaccinated. No history of blood clot in family or himself. No recent prolonged immobility or travel. No pain or swelling in his lower extremities. No recent black or bloody stool. Complains that his heart is "racing". Room air sats in the 70s on arrival to the emergency department. Still at 88 to 89% on 12 L per nasal cannula. Patient is noted to have fine rales at the bases bilaterally, moderate respiratory distress. No swelling in his lower extremities. No tenderness in the calves, negative Homans bilaterally. No rashes. Soft nontender abdomen. Dry oral mucosa. Sepsis work-up initiated with Covid and influenza testing. D-dimer pending. Chest x-ray pending. Patient is started on Vapotherm per respiratory therapy. Subjective/Events-last exam Patient the same We will try to contact her brother today Checked meds and labs Having some fluctuations in blood pressure Objective Exam Vital Signs Vital Signs Date Time Temp Pulse Resp B/P (MAP) Pulse Ox O2 Delivery O2 Flow Rate FiO2 11/03/21 20:16 96 30 92 100 11/03/21 20:03 135/53 11/03/21 19:33 36.0 11/03/21 18:00 Mechanical Ventilator 100.00 Capillary Refill : Less Than 3 Seconds General Appearance: Chronically ill, Other (Declined since last seen) Respiratory: No Accessory Muscle Use, No Respiratory Distress, Decreased Breath Sounds Results/Procedures Lab Laboratory Tests 11/03/21 04:15 Patient resulted labs reviewed. Assessment/Plan Assessment and Plan Assess & Plan/Chief Complaint Assessment: Acute hypoxic respiratory previously BiPAP dependent then status post acute respiratory failure 10/18/2021 status post emergently intubated and right-sided pneumothorax required chest tube placement by Dr. WOLFE with central line status post cardiac arrest x2 with ROSC after 20 minutes of compressions and 6 rounds of epinephrine status post new onset atrial fibrillation with rapid ventricular response status post amiodarone consulting cardiology status post cardioversion due to lack of resolution with IV antiarrhythmics currently off pressors Thora vent right anterior chest wall placed by Dr. Rodriguez on 10/21/2021 COVID-19 pneumonia DVT on anticoagulation Lung mass seen incidentally on CT scan Right-sided chest pain musculoskeletal type Hypertension Plan: BiPAP Vapotherm Anticoagulation 10/14/2021: Supportive care BiPAP 10/15/2021: Supportive care BiPAP Vapotherm Covid protocol meds High risk for intubation 10/16/2021: Complex case Continues to be high risk for intubation Pain control 10/17/2021: BiPAP Max Vapotherm Aggressive IV medication 10/18/2021: Status post cardiac arrest and emergently intubated and with right-sided chest tube and 3 pressors with A. fib and RVR 10/19/2021: Appreciate cardiology, eICU, Dr. WOLFE management yesterday 10/20/2021: Appreciate cardiology eICU for vent management Updated family 10/21/2021: Supportive care Vent management appreciated Osmin Diana Eliquis 10/22/2021: Supportive care Reviewed all meds Still critical illness 10/23/2021: Ventilator management appreciated Supportive care 10/24/2021: [place] referral Supportive care Prognosis poor 10/25/2021: Poor prognosis Supportive care 10/26/2021: Day #9 on vent No significant changes 10/27/2021: Day #10 on ventilator Trach and PEG tube likely required 10/28/2021: Day #11 on ventilator Trach and PEG required 11/03/2021: Day #17 on ventilator Poor prognosis Critical Care Ventilator Management DUSTIN IBRAHIM DO Nov 03, 2021 09:41
--- NOTE | 2021-11-03 12:06 | Cardiology Progress Note ---
Subjective Date Seen by Provider: Nov 03, 2021 Time Seen by Provider: 12:03 Subjective/Events-last exam Patient is sedated and intubated I did not examine the patient, I visited with the nurse and reviewed his records and lab Review of Systems General: Other (Unable to provide review of system) Objective-Cardiology Exam Last Set of Vital Signs Vital Signs 11/03/21 11/03/21 11/03/21 08:31 10:11 11:00 Temp 35.7 Pulse 91 Resp 30 B/P (MAP) 146/66 (92) Pulse Ox 92 O2 Delivery Mechanical Ventilator O2 Flow Rate 100.00 FiO2 70 I&O Intake and Output 11/03/21 00:00 Intake Total 2200 ml Output Total 1625 ml Balance 575 ml IV Total 1000 ml Tube Feeding 600 ml Other 600 ml Output Urine Total 1625 ml Chest Tube Drainage Total 0 ml General: Other (intubated, sedated) Lungs: Other (ronchi) Heart: Regular Rate, No Murmurs Extremities: Other (1+ edema) Neuro: Other (Ventilator dependent) Psych/Mental Status: Mood NL, Other (Ventilator dependent) Results Lab Laboratory Tests 11/03/21 04:15 A/P-Cardiology Admission Diagnosis Acute respiratory failure COVID-19 pneumonia Atrial fibrillation Hypertension Assessment/Plan Acute respiratory failure, ventilator dependent secondary to COVID-19 pneumonia, ARDS. Paroxysmal atrial fibrillation, back to sinus rhythm DVT of the left lower extremity, maintained on Eliquis Hypertension, monitor blood pressure Hyperlipidemia Overall poor prognosis RAMONA HALEY MD Nov 03, 2021 12:06
[2021-11-03] MEDS: NOREPINEPHRINE 8 MG/250 ML 250 ML IV SCH (13:00)
[2021-11-03] MEDS: AtorvaSTATin TABLET 10 MG TABLET PO SCH (20:02)
[2021-11-03] MEDS: traZODone 50 MG (DESYREL) TAB PO SCH (20:02)
[2021-11-03] MEDS: traZODone 100 MG (DESYREL) TAB PO SCH (20:02)
[2021-11-04] VITALS (29 sets, daily range): BP systolic 103–191; BP diastolic 53–78
[2021-11-04] MEDS: RT-ALBUTEROL HFA 8.5 GM INHALER IH SCH ×4 (02:34→23:02)
[2021-11-04] MEDS: DexMEDEtomidine 250 ML DRIP 250 ML IV SCH ×3 (02:48→19:48)
[2021-11-04 02:58] LABS: BASOPHILS # (AUTO) 0.1 10^3/uL (0.0-0.1); BASOPHILS % (AUTO) 1 % (0-10); EOSINOPHILS # (AUTO) 0.2 10^3/uL (0.0-0.3); EOSINOPHILS % (AUTO) 2 % (0-10); HEMATOCRIT 32 % (40-54); HEMOGLOBIN 9.6 g/dL (13.3-17.7); LYMPHOCYTES # (AUTO) 1.3 10^3/uL (1.0-4.0); LYMPHOCYTES % (AUTO) 11 % (12-44); MEAN CORPUSCULAR HEMOGLOBIN 28 pg (25-34); MEAN CORPUSCULAR HGB CONC 30 g/dL (32-36); MEAN CORPUSCULAR VOLUME 95 fL (80-99); MEAN PLATELET VOLUME 11.3 fL (9.0-12.2); MONOCYTES # (AUTO) 0.9 10^3/uL (0.0-1.0); MONOCYTES % (AUTO) 8 % (0-12); NEUTROPHILS # (AUTO) 8.5 10^3/uL (1.8-7.8); NEUTROPHILS % (AUTO) 73 % (42-75); PLATELET COUNT 287 10^3/uL (130-400); WHITE BLOOD COUNT 11.7 10^3/uL (4.3-11.0)
[2021-11-04] MEDS: fentaNYL DRIP PRE-MIX 250 ML IV SCH ×4 (03:04→18:01)
[2021-11-04 03:05] LABS: ABG BASE EXCESS 8.8 MMOL/L (-2.5-2.5); ABG OXYGEN SATURATION 95 % (94-100); ABG PCO2 70 MMHG (35-45); ABG PO2 74 MMHG (79-93); ABG TCO2 37.7 MMOL/L (21.0-31.0)
[2021-11-04 03:09] LABS: ALBUMIN 2.2 GM/DL (3.2-4.5); POTASSIUM 3.2 MMOL/L (3.6-5.0)
[2021-11-04 03:13] LABS: BILIRUBIN,TOTAL 0.3 MG/DL (0.1-1.0)
[2021-11-04 03:15] LABS: CREATININE SERUM 0.6 MG/DL (0.60-1.30); PHOSPHORUS 2.4 MG/DL (2.3-4.7)
[2021-11-04 03:18] LABS: MAGNESIUM 2.2 MG/DL (1.6-2.4)
[2021-11-04] MEDS: KCL 20 MEQ TAB (K-DUR) PO SCH (03:21)
[2021-11-04] MEDS: POTASSIUM CL 10MEQ/50ML IVPB 50 ML IV SCH ×4 (03:21→05:58)
[2021-11-04] MEDS: MAGNESIUM 1 GM/100 ML IVPB 100 ML IV SCH (03:21)
[2021-11-04] MEDS: inSUlin ASPART (NovoLOG) 1 UNIT/0.01 ML (CHARGE PER UNIT) SQ SCH ×3 (03:22→18:00)
[2021-11-04 03:23] LABS: ABG PH 7.31 (7.37-7.43)
[2021-11-04 03:24] LABS: ALLENS TEST ART LINE; INSPIRED O2 100%; PATIENT TEMP 35.3; VENTILATOR YES
[2021-11-04] MEDS: CISATRACURIUM DRIP 250 ML IV SCH ×3 (04:16→17:54)
[2021-11-04] MEDS: METOCLOPRAMIDE INJ 10 MG/2 ML (REGLAN) IVP SCH ×4 (05:59→23:17)
[2021-11-04] MEDS: NOREPINEPHRINE 8 MG/250 ML 250 ML IV SCH ×2 (05:59→11:45)
[2021-11-04] MEDS: PROPOFOL DRIP (ICU) 100 ML IV SCH ×5 (05:59→19:49)
--- NOTE | 2021-11-04 08:32 | Progress Note - Hospitalist ---
Subjective HPI/CC On Admission Date Seen by Provider: Nov 04, 2021 Time Seen by Provider: 11:00 Admisison Planning May Need Admission (Planning): 08:00 (JAVIER ORDONEZ MD) Progress Progress Note #1: Time: 08:11 Progress Note 51-year-old male presents to the emergency department with his parents chief complaint of increasing shortness of breath, cough, body aches headache, nausea vomiting and diarrhea. Tells us initially that he was seen by [facility] 2 or 3 days ago, tested negative for Covid. Later his father contributes to the history stating that the patient was in fact told that he had pneumonia and was started on an antibiotic however the patient cannot recall what that was when asked. Patient states that he does not and has not ever smoked. He does not work around fumes or smoke. He states his cough is nonproductive. Has had profoundly severe shortness of breath with exertion over the last 24 hours. Takes medication for cholesterol and hypertension although did not take his medicine for hypertension this morning. Denies known sick contacts with Covid. Is not vaccinated. No history of blood clot in family or himself. No recent prolonged immobility or travel. No pain or swelling in his lower extremities. No recent black or bloody stool. Complains that his heart is "racing". Room air sats in the 70s on arrival to the emergency department. Still at 88 to 89% on 12 L per nasal cannula. Patient is noted to have fine rales at the bases bilaterally, moderate respiratory distress. No swelling in his lower extremities. No tenderness in the calves, negative Homans bilaterally. No rashes. Soft nontender abdomen. Dry oral mucosa. Sepsis work-up initiated with Covid and influenza testing. D-dimer pending. Chest x-ray pending. Patient is started on Vapotherm per respiratory therapy. Subjective/Events-last exam No significant change Esophageal erosion could be the cause of the cuff leaks Updated Adalid and after a 10-minute conversation he wanted to make no changes in his CODE STATUS and wanted no part of comfort care SORAYA Torres witnessed conversation on speaker phone Objective Exam Vital Signs Vital Signs Date Time Temp Pulse Resp B/P (MAP) Pulse Ox O2 Delivery O2 Flow Rate FiO2 11/04/21 20:00 35.6 11/04/21 19:58 Mechanical Ventilator 90 11/04/21 19:49 160/69 11/04/21 19:48 107 11/04/21 19:38 30 90 100.00 Capillary Refill : Less Than 3 Seconds General Appearance: Chronically ill, Obese, Other (Sedated and intubated) Respiratory: No Accessory Muscle Use, No Respiratory Distress, Crackles, Decrea sed Breath Sounds Cardiovascular: Regular Rate, Rhythm Results/Procedures Lab Laboratory Tests 11/04/21 02:40 Patient resulted labs reviewed. Assessment/Plan Assessment and Plan Assess & Plan/Chief Complaint Assessment: Acute hypoxic respiratory previously BiPAP dependent then status post acute re spiratory failure 10/18/2021 status post emergently intubated and right-sided pneumothorax required chest tube placement by Dr. WOLFE with central line status post cardiac arrest x2 with ROSC after 20 minutes of compressions and 6 rounds of epinephrine status post new onset atrial fibrillation with rapid ventricular response status post amiodarone consulting cardiology status post cardioversion due to lack of resolution with IV antiarrhythmics currently off pressors Thora vent right anterior chest wall placed by Dr. Rodriguez on 10/21/2021 COVID-19 pneumonia DVT on anticoagulation Lung mass seen incidentally on CT scan Right-sided chest pain musculoskeletal type Hypertension Plan: BiPAP Vapotherm Anticoagulation 10/14/2021: Supportive care BiPAP 10/15/2021: Supportive care BiPAP Vapotherm Covid protocol meds High risk for intubation 10/16/2021: Complex case Continues to be high risk for intubation Pain control 10/17/2021: BiPAP Max Vapotherm Aggressive IV medication 10/18/2021: Status post cardiac arrest and emergently intubated and with right-sided chest tube and 3 pressors with A. fib and RVR 10/19/2021: Appreciate cardiology, eICU, Dr. WOLFE management yesterday 10/20/2021: Appreciate cardiology eICU for vent management Updated family 10/21/2021: Supportive care Vent management appreciated Osmin Diana Eliquis 10/22/2021: Supportive care Reviewed all meds Still critical illness 10/23/2021: Ventilator management appreciated Supportive care 10/24/2021: [place] referral Supportive care Prognosis poor 10/25/2021: Poor prognosis Supportive care 10/26/2021: Day #9 on vent No significant changes 10/27/2021: Day #10 on ventilator Trach and PEG tube likely required 10/28/2021: Day #11 on ventilator Trach and PEG required 11/03/2021: Day #17 on ventilator Poor prognosis 11/04/2021: Supportive care Family wants no changes to CODE STATUS and no discussion of comfort care Critical Care Ventilator Management DUSTIN IBRAHIM DO Nov 04, 2021 08:32
[2021-11-04] MEDS: ACYCLOVIR 400 MG TABLET (ZOVIRAX) PO SCH ×2 (08:59→17:46)
[2021-11-04] MEDS: APIXABAN 5 MG (ELIQUIS) TABLET PO SCH ×2 (08:59→19:48)
[2021-11-04] MEDS: PANTOPRAZOLE 40 MG (PROTONIX) VIAL IV SCH (09:00)
[2021-11-04] MEDS: BUMETANIDE 1 MG/4 ML (BUMEX) VIAL IV SCH (09:00)
[2021-11-04] MEDS: LIDOCAINE 4% (SALONPAS) PATCH TOP SCH (09:00)
[2021-11-04] MEDS: AMIODARONE 200 MG (CORDARONE) TAB PO SCH ×2 (09:00→19:48)
[2021-11-04] MEDS: ANIDULAFUNGIN INJECTION 100 MG in NS (IVPB) 100 ML IV SCH (09:03)
--- NOTE | 2021-11-04 09:34 | Tele-ICU Progress Note ---
Subjective Date Seen by a Provider: Nov 04, 2021 Time Seen by a Provider: 07:00 Subjective/Events-last exam This virtual visit was conducted using real time audio/video. Thank you for asking us to see this patient for respiratory insufficiency due to Covid pna. Also DVT/PE, R PTX, pna, PAF Recent events: T feeds held PE: Sedated on vent. VSS. O2 sat 95-100% on 100%/+14 HEENT: No obvious masses, adenopathy or JVD. Chest: coarse. CV: RRR S1 S2 No murmur or added sounds. Abd: Non-tender. Bowel sounds Y. : Unremarkable. [place]urd Y. [employer] WORK/psychiatric: Grossly intact. No obvious focal findings. Extremities: 1+ edema. Capillary refill < 3 seconds. Skin: unremarkable. Results: Elevated WCC 11.9. Decreased K 3.2, Alb 2.2, Hb 9.6. B.31/70/74. CXR: B infilts.. Available chart/ vitals / labs / images reviewed. Video assessment done using teleICU camera, rest of exam as per RN. A/P: Respiratory insufficiency: Continue present management with vent., Alb., Levo., Prec.., Prop.Nimbex. Needs Trach/PEG. Critical Care: critically ill patient. Cont. Bumex, Merop., Araxis., Eliq., Amiod., PPI, SSI. Replace K. Consider Palliative Care consult. Discussed with RN . Asked RN to reach out to eICU if any questions or concerns later. Time spent with patient/coordination of care with other health professionals (mins): Sepsis Event Evaluation Height, Weight, BMI Height: 5'10.00" Weight: 182lbs. 0.0oz. 82.303101sb; 25.79 BMI Method: Exam Exam Patient acknowledged, consented, and participated in this virtual visit which was conducted using real time audio/video Vital Signs Date Time Temp Pulse Resp B/P (MAP) Pulse Ox O2 Delivery O2 Flow Rate FiO2 11/04/21 09:00 67 30 144/67 (92) 100 Mechanical Ventilator 95.00 11/04/21 08:43 Mechanical Ventilator 95.00 11/04/21 08:36 73 30 100 100 11/04/21 08:00 68 30 143/68 (93) 100 Mechanical Ventilator 100.00 11/04/21 08:00 35.8 11/04/21 07:00 69 30 143/68 (93) 100 Mechanical Ventilator 100.00 11/04/21 07:00 70 11/04/21 06:00 68 30 145/68 (93) 100 Mechanical Ventilator 100.00 11/04/21 06:00 68 147/69 11/04/21 05:59 69 147/69 11/04/21 05:00 68 30 110/63 (79) 99 Mechanical Ventilator 100.00 11/04/21 04:53 35.3 11/04/21 04:00 73 30 107/60 (76) 99 Mechanical Ventilator 100.00 11/04/21 04:00 Mechanical Ventilator 100 11/04/21 03:00 82 30 137/69 (91) 97 Mechanical Ventilator 100.00 11/04/21 02:48 96 147/58 11/04/21 02:34 103 30 93 100 11/04/21 02:00 70 30 106/59 (75) 96 Mechanical Ventilator 100.00 11/04/21 01:00 73 30 105/59 (74) 96 Mechanical Ventilator 100.00 11/04/21 01:00 72 11/04/21 00:20 Mechanical Ventilator 100 11/04/21 00:00 71 30 103/59 (74) 96 Mechanical Ventilator 100.00 11/03/21 23:04 35.8 11/03/21 23:00 70 30 98/59 (72) 95 Mechanical Ventilator 100.00 11/03/21 22:39 72 30 94 100 11/03/21 22:19 80 113/60 11/03/21 22:19 80 111/60 11/03/21 22:00 72 30 104/57 (73) 94 Mechanical Ventilator 100.00 11/03/21 21:00 80 30 97/52 (67) 93 Mechanical Ventilator 100.00 11/03/21 20:16 96 30 92 100 11/03/21 20:03 103 135/53 11/03/21 20:00 Mechanical Ventilator 100 11/03/21 20:00 96 30 103/53 (70) 93 Mechanical Ventilator 100.00 11/03/21 19:33 36.0 11/03/21 19:00 68 11/03/21 19:00 67 30 119/69 (86) 95 Mechanical Ventilator 100.00 11/03/21 18:00 70 30 114/64 (81) 95 Mechanical Ventilator 100.00 11/03/21 17:00 70 30 128/70 (89) 95 Mechanical Ventilator 100.00 11/03/21 16:08 Mechanical Ventilator 100 11/03/21 16:00 71 30 144/68 (93) 95 Mechanical Ventilator 100.00 11/03/21 15:57 35.5 11/03/21 15:18 70 30 96 100 11/03/21 15:00 69 30 135/70 (91) 97 Mechanical Ventilator 100.00 11/03/21 14:00 69 30 121/67 (85) 97 Mechanical Ventilator 100.00 11/03/21 13:13 91 146/66 11/03/21 13:12 91 146/66 11/03/21 13:00 74 30 91/51 (64) 92 Mechanical Ventilator 100.00 11/03/21 13:00 82 11/03/21 13:00 69 121/67 11/03/21 12:11 36.1 11/03/21 12:00 Mechanical Ventilator 100 11/03/21 12:00 81 30 107/60 (76) 92 Mechanical Ventilator 100.00 11/03/21 11:00 91 30 146/66 (92) 92 Mechanical Ventilator 100.00 11/03/21 10:11 97 30 91 70 11/03/21 10:00 93 30 153/72 (99) 91 Mechanical Ventilator 100.00 I & O 11/04/21 07:00 Intake Total 2410 ml Output Total 2200 ml Balance 210 ml Height & Weight Height: 5'10.00" Weight: 182lbs. 0.0oz. 82.643302ro; 25.79 BMI Method: General Appearance: Chronically ill, Other (Declined since last seen) HEENT: TMs Normal Neck: Supple Respiratory: No Accessory Muscle Use, No Respiratory Distress, Decreased Breath Sounds Cardiovascular: Regular Rate, Rhythm Capillary Refill: Less Than 3 Seconds Peripheral Pulses: 1+ Dorsalis Pedis (R), 1+ Left Dors-Pedis (L); 2+ Radial Pulses (R), 2+ Radial Pulses (L) Gastrointestinal: normal bowel sounds, non tender, soft Extremity: Normal Capillary Refill Neurologic/Psychiatric: Other (vent/sedated) Skin: Normal Color Lymphatic: No Adenopathy Results Lab Laboratory Tests 11/03/21 04:15 11/04/21 02:40 Assessment/Plan Assessment/Plan See free text. Critical Care: Critically Ill Patient FERDINAND HERNANDEZ MD Nov 04, 2021 09:34
--- NOTE | 2021-11-04 10:27 | Cardiology Progress Note ---
Subjective Date Seen by Provider: Nov 04, 2021 Time Seen by Provider: 10:27 Subjective/Events-last exam Patient is sedated and intubated Review of Systems General: Other (Unable to provide review of system) Objective-Cardiology Exam Last Set of Vital Signs Vital Signs 11/04/21 11/04/21 11/04/21 08:00 08:36 10:00 Temp 35.8 Pulse 69 Resp 30 B/P (MAP) 104/60 (75) Pulse Ox 100 O2 Delivery Mechanical Ventilator O2 Flow Rate 95.00 FiO2 100 I&O Intake and Output 11/04/21 00:00 Intake Total 1400 ml Output Total 2350 ml Balance -950 ml IV Total 550 ml Tube Feeding 550 ml Other 300 ml Output Urine Total 2350 ml Chest Tube Drainage Total 0 ml General: Other (intubated, sedated) Lungs: Other (ronchi) Heart: Regular Rate, No Murmurs Extremities: Other (1+ edema) Neuro: Other (Ventilator dependent) Psych/Mental Status: Mood NL, Other (Ventilator dependent) Results Lab Laboratory Tests 11/04/21 02:40 A/P-Cardiology Admission Diagnosis Acute respiratory failure COVID-19 pneumonia Atrial fibrillation Hypertension Assessment/Plan Acute respiratory failure, ventilator dependent secondary to COVID-19 pneumonia, ARDS. Paroxysmal atrial fibrillation, back to sinus rhythm DVT of the left lower extremity, maintained on Eliquis Hypertension, monitor blood pressure Hyperlipidemia Overall poor prognosis RAMONA HALEY MD Nov 04, 2021 10:27
[2021-11-04] MEDS: MIDAZOLAM DRIP PRE-MIX 100 ML IV SCH (11:52)
[2021-11-04] MEDS: traZODone 100 MG (DESYREL) TAB PO SCH (19:48)
[2021-11-04] MEDS: traZODone 50 MG (DESYREL) TAB PO SCH (19:48)
[2021-11-04] MEDS: AtorvaSTATin TABLET 10 MG TABLET PO SCH (19:48)
--- NOTE | 2021-11-04 23:40 | Tele-ICU Progress Note ---
Progress Note Called by the nurse with cuff leaking and loosing volumed. CXR ordered and reviewed , ETT 10-12 cm above margy. Advanced 7-8 cm and estela about 4 cm from margy. Leak resolved. D/W the RT and bedside nurse. Focused Exam Height, Weight, BMI Height: 5'10.00" Weight: 182lbs. 0.0oz. 82.208999sr; 25.79 BMI Method: CAMILLE PARK MD Nov 04, 2021 23:40
--- NOTE | 2021-11-04 23:50 | Diagnostic Imaging Report ---
Indication: Intubated. COMPARISON: 11/04/2021 at 11:17 PM. FINDINGS: Single view the chest demonstrates slight advancement of the ET tube into the upper trachea. The NG tube is in the stomach. There is no pneumothorax. Infiltrates are unchanged. impression: Slight anterior advancement of the ET tube into the upper trachea. Dictated by: Dictated on workstation # [id number]
--- NOTE | 2021-11-04 23:54 | Diagnostic Imaging Report ---
Indication: ET tube placement. COMPARISON: 11/04/2021 11:31 PM. FINDINGS: Single view the chest demonstrates an ET tube now within the mid trachea. The NG tube is stable. There is no pneumothorax. Aeration is unchanged. The right subclavian central venous catheter is in good position. IMPRESSION: ET tube mid trachea. No pneumothorax. Dictated by: Dictated on workstation # [id number]
--- NOTE | 2021-11-04 23:55 | Diagnostic Imaging Report ---
Indication: Intubation. COMPARISON: 11/03/2021 at 12:09 a.m.. FINDINGS: Single view the chest demonstrates an ET tube above the thoracic inlet within the airway. The NG tube is in the stomach. Infiltrates are seen bilaterally. There is no pneumothorax. IMPRESSION: Support devices as described. Dictated by: Dictated on workstation # [id number]
[2021-11-05] VITALS (30 sets, daily range): BP systolic 87–145; BP diastolic 48–79
[2021-11-05] MEDS: inSUlin ASPART (NovoLOG) 1 UNIT/0.01 ML (CHARGE PER UNIT) SQ SCH ×4 (00:45→19:59)
[2021-11-05] MEDS: RT-ALBUTEROL HFA 8.5 GM INHALER IH SCH ×4 (02:07→21:45)
[2021-11-05] MEDS: MIDAZOLAM DRIP PRE-MIX 100 ML IV SCH ×2 (03:11→17:39)
[2021-11-05] MEDS: fentaNYL DRIP PRE-MIX 250 ML IV SCH ×4 (03:11→20:27)
[2021-11-05] MEDS: PROPOFOL DRIP (ICU) 100 ML IV SCH ×5 (04:08→20:28)
[2021-11-05 04:15] LABS: ABG BASE EXCESS 7.9 MMOL/L (-2.5-2.5); ABG OXYGEN SATURATION 90 % (94-100); ABG PCO2 62 MMHG (35-45); ABG PH 7.35 (7.37-7.43); ABG PO2 52 MMHG (79-93); ABG TCO2 35.5 MMOL/L (21.0-31.0); BASOPHILS # (AUTO) 0.1 10^3/uL (0.0-0.1); BASOPHILS % (AUTO) 1 % (0-10); EOSINOPHILS % (AUTO) 0 % (0-10); HEMATOCRIT 30 % (40-54); LYMPHOCYTES # (AUTO) 0.7 10^3/uL (1.0-4.0); LYMPHOCYTES % (AUTO) 4 % (12-44); MEAN CORPUSCULAR HEMOGLOBIN 28 pg (25-34); MEAN CORPUSCULAR HGB CONC 30 g/dL (32-36); MEAN CORPUSCULAR VOLUME 94 fL (80-99); MEAN PLATELET VOLUME 11.2 fL (9.0-12.2); MONOCYTES # (AUTO) 1.1 10^3/uL (0.0-1.0); MONOCYTES % (AUTO) 7 % (0-12); NEUTROPHILS # (AUTO) 13.8 10^3/uL (1.8-7.8); NEUTROPHILS % (AUTO) 84 % (42-75); PLATELET COUNT 306 10^3/uL (130-400); WHITE BLOOD COUNT 16.4 10^3/uL (4.3-11.0)
[2021-11-05 04:17] LABS: ALLENS TEST ART LINE; INSPIRED O2 60%; PATIENT TEMP 36.5; VENTILATOR YES
[2021-11-05 04:26] LABS: POTASSIUM 3.6 MMOL/L (3.6-5.0)
[2021-11-05 04:27] LABS: CALCIUM 7.8 MG/DL (8.5-10.1)
[2021-11-05 04:28] LABS: TOTAL PROTEIN 5.7 GM/DL (6.4-8.2)
[2021-11-05 04:30] LABS: BILIRUBIN,TOTAL 0.4 MG/DL (0.1-1.0)
[2021-11-05 04:31] LABS: PHOSPHORUS 3.5 MG/DL (2.3-4.7)
[2021-11-05 04:32] LABS: CREATININE SERUM 0.73 MG/DL (0.60-1.30)
[2021-11-05] MEDS: MAGNESIUM 1 GM/100 ML IVPB 100 ML IV SCH (04:42)
[2021-11-05] MEDS: KCL 20 MEQ TAB (K-DUR) PO SCH (04:42)
[2021-11-05] MEDS: POTASSIUM CL 10MEQ/50ML IVPB 50 ML IV SCH ×3 (04:42→05:18)
[2021-11-05 04:49] LABS: ANISOCYTOSIS SLIGHT; BAND NEUTROPHILS 15 %; LYMPHOCYTES % (MANUAL) 2 %; MONOCYTES % (MANUAL) 4 %; NEUTROPHILS % (MANUAL) 79 %
[2021-11-05] MEDS: METOCLOPRAMIDE INJ 10 MG/2 ML (REGLAN) IVP SCH ×3 (05:17→17:38)
[2021-11-05] MEDS: DexMEDEtomidine 250 ML DRIP 250 ML IV SCH ×2 (05:17→14:37)
[2021-11-05] MEDS: CISATRACURIUM DRIP 250 ML IV SCH ×3 (05:29→17:39)
--- NOTE | 2021-11-05 09:07 | Cardiology Progress Note ---
Progress Note-Cardiology Events since last exam Date Seen by Provider: Nov 05, 2021 Time Seen by Provider: 09:06 Events since last exam I am following him due to paroxysmal atrial fibrillation. He remains in the intensive care unit intubated and sedated. He has not had any recurrent atrial fibrillation. He has persistent shock and has remained on norepinephrine infusion for days. I did not see the patient due to his COVID status. Certain portions of this document may have been dictated utilizing voice recognition technology. Inherent to this technology, typographical and grammatical errors may exist. As much as I am diligent to identify and correct these mistakes, some errors may remain in the document. Vitals Last set of Vitals Signs Vital Signs 11/05/21 11/05/21 08:00 10:00 Temp 37.2 Pulse 76 Resp 30 B/P (MAP) 137/70 (92) Pulse Ox 91 O2 Delivery Mechanical Ventilator O2 Flow Rate 60.00 FiO2 60 Labs Labs Laboratory Tests 11/05/21 04:10 Exam Vital Signs Vital Signs Date Time Temp Pulse Resp B/P (MAP) Pulse Ox O2 Delivery O2 Flow Rate FiO2 11/05/21 10:00 76 30 137/70 (92) 91 Mechanical Ventilator 60.00 11/05/21 08:00 37.2 11/05/21 08:00 60 Physical Exam I did not examine the patient due to his COVID status Labs Laboratory Tests Test 11/04/21 11:20 11/04/21 17:56 11/05/21 04:10 Range/Units Glucometer 112 H 109 70-110 MG/DL White Blood Count 16.4 H 4.3-11.0 10^3/uL Red Blood Count 3.17 L 4.30-5.52 10^6/uL Hemoglobin 9.0 L 13.3-17.7 g/dL Hematocrit 30 L 40-54 % Mean Corpuscular Volume 94 80-99 fL Mean Corpuscular Hemoglobin 28 25-34 pg Mean Corpuscular Hemoglobin Concent 30 L 32-36 g/dL Red Cell Distribution Width 16.3 H 10.0-14.5 % Platelet Count 306 130-400 10^3/uL Mean Platelet Volume 11.2 9.0-12.2 fL Immature Granulocyte % (Auto) 4 % Neutrophils (%) (Auto) 84 H 42-75 % Lymphocytes (%) (Auto) 4 L 12-44 % Monocytes (%) (Auto) 7 0-12 % Eosinophils (%) (Auto) 0 0-10 % Basophils (%) (Auto) 1 0-10 % Neutrophils # (Auto) 13.8 H 1.8-7.8 10^3/uL Lymphocytes # (Auto) 0.7 L 1.0-4.0 10^3/uL Monocytes # (Auto) 1.1 H 0.0-1.0 10^3/uL Eosinophils # (Auto) 0.0 0.0-0.3 10^3/uL Basophils # (Auto) 0.1 0.0-0.1 10^3/uL Immature Granulocyte # (Auto) 0.7 H 0.0-0.1 10^3/uL Neutrophils % (Manual) 79 % Lymphocytes % (Manual) 2 % Monocytes % (Manual) 4 % Band Neutrophils 15 % Anisocytosis SLIGHT Blood Gas Puncture Site ART LINE Blood Gas Patient Temperature 36.5 Arterial Blood pH 7.35 L 7.37-7.43 Arterial Blood Partial Pressure CO2 62 H 35-45 MMHG Arterial Blood Partial Pressure O2 52 L 79-93 MMHG Arterial Blood HCO3 34 H 23-27 MMOL/L Arterial Blood Total CO2 35.5 H 21.0-31.0 MMOL/L Arterial Blood Oxygen Saturation 90 L 94-100 % Arterial Blood Base Excess 7.9 H -2.5-2.5 MMOL/L To Test ART LINE Blood Gas Ventilator Setting YES Blood Gas Inspired Oxygen 60% Sodium Level 143 135-145 MMOL/L Potassium Level 3.6 3.6-5.0 MMOL/L Chloride Level 102 98-107 MMOL/L Carbon Dioxide Level 30 21-32 MMOL/L Anion Gap 11 5-14 MMOL/L Blood Urea Nitrogen 13 7-18 MG/DL Creatinine 0.73 0.60-1.30 MG/DL Estimat Glomerular Filtration Rate 112 BUN/Creatinine Ratio 18 Glucose Level 118 H 70-105 MG/DL Calcium Level 7.8 L 8.5-10.1 MG/DL Corrected Calcium 9.4 8.5-10.1 MG/DL Phosphorus Level 3.5 2.3-4.7 MG/DL Magnesium Level 2.0 1.6-2.4 MG/DL Total Bilirubin 0.4 0.1-1.0 MG/DL Aspartate Amino Transf (AST/SGOT) 26 5-34 U/L Alanine Aminotransferase (ALT/SGPT) 15 0-55 U/L Alkaline Phosphatase 115 40-136 U/L Total Protein 5.7 L 6.4-8.2 GM/DL Albumin 2.0 L 3.2-4.5 GM/DL Diagnosis/Problems Diagnosis/Problems (1) Paroxysmal atrial fibrillation Status: Acute Assessment & Plan: This was a new finding on this patient during this admission. This was most most likely brought on by the resuscitative efforts during his cardiopulmonary arrest and possibly Covid infection. Since his cardioversion on 10/18, he remains in sinus rhythm and sinus tachycardia on oral amiodarone. I decreased the dose of amiodarone on 10/26/2021. I now have him on a low-dose of amiodarone at 100 mg twice daily. I will now change this to 100 mg once daily. Since the atrial fibrillation was most likely brought on by his cardiopulmonary arrest and lasted less than 48 hours, he does not necessarily need anticoagulation for the atrial fibrillation. However, he is on apixaban d ue to left lower extremity deep venous thrombosis. (2) Septic shock Assessment & Plan: Most likely related to Covid pneumonia. As above, we will continue norepinephrine infusion and wean as tolerated. I will start him on low-dose oral midodrine and see if this may help get him off the norepinephrine infusion. (3) Primary hypertension Assessment & Plan: He has been intermittently on intravenous norepinephrine due to recurrent shock. All antihypertensive medication is on hold until he comes off vasopressor medication. I removed all of his outpatient antihypertensive medication from the inpatient list. (4) Mixed hyperlipidemia Assessment & Plan: Continue statin medication. (5) Acute respiratory failure due to COVID-19 Status: Acute Assessment & Plan: The hospitalist and eICU are managing the ventilator. He remains on high PEEP levels and oxygen. Prognosis remains guarded. (6) Deep vein thrombosis of left lower extremity Assessment & Plan: Possibly related to Covid infection. He continues on apixaban. KAIT MORENO JR, MD Nov 05, 2021 09:07
[2021-11-05] MEDS: ACYCLOVIR 400 MG TABLET (ZOVIRAX) PO SCH ×2 (09:31→17:38)
[2021-11-05] MEDS: BUMETANIDE 1 MG/4 ML (BUMEX) VIAL IV SCH (09:31)
[2021-11-05] MEDS: PANTOPRAZOLE 40 MG (PROTONIX) VIAL IV SCH ×3 (09:31→20:27)
[2021-11-05] MEDS: LIDOCAINE 4% (SALONPAS) PATCH TOP SCH (09:31)
[2021-11-05] MEDS: AMIODARONE 200 MG (CORDARONE) TAB PO SCH (09:31)
[2021-11-05] MEDS: MIDODRINE 10 MG (PROAMATINE) TAB PO SCH ×3 (09:35→20:27)
[2021-11-05] MEDS: ANIDULAFUNGIN INJECTION 100 MG in NS (IVPB) 100 ML IV SCH (09:35)
[2021-11-05] MEDS ORDERED: NS IV 500 ML 500 ML ONE (10:31)
--- NOTE | 2021-11-05 12:05 | Tele-ICU Progress Note ---
Subjective Date Seen by a Provider: Nov 05, 2021 Time Seen by a Provider: 12:04 Sepsis Event Evaluation Height, Weight, BMI Height: 5'10.00" Weight: 182lbs. 0.0oz. 82.966365uz; 25.79 BMI Method: Exam Exam Patient acknowledged, consented, and participated in this virtual visit which was conducted using real time audio/video Vital Signs Date Time Temp Pulse Resp B/P (MAP) Pulse Ox O2 Delivery O2 Flow Rate FiO2 11/05/21 11:56 75 115/74 11/05/21 11:55 36.8 11/05/21 11:52 76 115/75 11/05/21 11:09 77 30 92 70 11/05/21 10:00 76 30 137/70 (92) 91 Mechanical Ventilator 60.00 11/05/21 09:00 75 30 131/62 (85) 94 Mechanical Ventilator 60.00 11/05/21 08:00 75 30 128/62 (84) 95 Mechanical Ventilator 60.00 11/05/21 08:00 37.2 11/05/21 08:00 Mechanical Ventilator 60 11/05/21 07:54 81 30 96 60 11/05/21 07:00 75 11/05/21 07:00 75 30 142/68 (92) 94 Mechanical Ventilator 60.00 11/05/21 06:00 77 30 142/70 (94) 94 Mechanical Ventilator 60.00 11/05/21 05:17 80 11/05/21 05:00 80 30 126/68 (87) 94 Mechanical Ventilator 60.00 11/05/21 04:09 90 11/05/21 04:08 126/74 11/05/21 04:07 36.5 11/05/21 04:00 90 30 145/79 (101) 94 Mechanical Ventilator 60.00 11/05/21 03:27 Mechanical Ventilator 60 11/05/21 03:11 85 11/05/21 03:09 Mechanical Ventilator 60.00 11/05/21 03:00 83 30 102/65 (77) 88 Mechanical Ventilator 50.00 11/05/21 02:13 77 30 132/67 (88) 93 Mechanical Ventilator 50.00 11/05/21 02:07 78 30 98 65 11/05/21 02:00 79 30 130/67 (88) 97 Mechanical Ventilator 60.00 11/05/21 01:28 Mechanical Ventilator 60.00 11/05/21 01:00 81 11/05/21 01:00 81 30 113/59 (77) 98 Mechanical Ventilator 80.00 11/05/21 00:54 Mechanical Ventilator 90 11/05/21 00:30 Mechanical Ventilator 80.00 11/05/21 00:00 36.3 11/05/21 00:00 96 30 89/48 (62) 100 Mechanical Ventilator 90.00 11/04/21 23:00 112 30 104/53 (70) 83 Mechanical Ventilator 90.00 11/04/21 22:00 113 30 128/62 (84) 91 Mechanical Ventilator 90.00 11/04/21 21:11 Mechanical Ventilator 90.00 11/04/21 21:00 112 30 138/63 (88) 92 Mechanical Ventilator 100.00 11/04/21 20:00 35.6 11/04/21 20:00 110 30 141/65 (90) 93 Mechanical Ventilator 100.00 11/04/21 19:58 Mechanical Ventilator 90 11/04/21 19:49 160/69 11/04/21 19:48 160/69 11/04/21 19:48 107 11/04/21 19:38 105 30 191/78 (115) 90 Mechanical Ventilator 100.00 11/04/21 19:32 67 30 100 85 11/04/21 19:00 102 30 180/72 (108) 94 Mechanical Ventilator 95.00 11/04/21 19:00 102 11/04/21 18:00 77 24 170/73 (105) 97 Mechanical Ventilator 95.00 11/04/21 17:00 73 30 154/72 (99) 99 Mechanical Ventilator 95.00 11/04/21 16:00 36.4 11/04/21 16:00 72 30 138/67 (90) 98 Mechanical Ventilator 95.00 11/04/21 16:00 Mechanical Ventilator 90 11/04/21 15:29 90 11/04/21 15:21 67 30 100 95 11/04/21 15:00 66 30 161/75 (103) 100 Mechanical Ventilator 95.00 11/04/21 14:00 69 30 150/67 (94) 100 Mechanical Ventilator 95.00 11/04/21 13:29 71 135/61 11/04/21 13:29 71 135/61 11/04/21 13:00 73 30 137/63 (87) 100 Mechanical Ventilator 95.00 11/04/21 13:00 71 I & O 11/05/21 07:00 Intake Total 360 ml Output Total 3650 ml Balance -3290 ml Height & Weight Height: 5'10.00" Weight: 182lbs. 0.0oz. 82.697058wg; 25.79 BMI Method: General Appearance: Chronically ill, Obese, Other (Sedated and intubated) HEENT: TMs Normal Neck: Supple Respiratory: No Accessory Muscle Use, No Respiratory Distress, Crackles, Decreased Breath Sounds Cardiovascular: Regular Rate, Rhythm Capillary Refill: Less Than 3 Seconds Peripheral Pulses: 1+ Dorsalis Pedis (R), 1+ Left Dors-Pedis (L); 2+ Radial Pulses (R), 2+ Radial Pulses (L) Gastrointestinal: normal bowel sounds, non tender, soft Extremity: Normal Capillary Refill Neurologic/Psychiatric: Other (vent/sedated) Skin: Normal Color Lymphatic: No Adenopathy Results Lab Laboratory Tests 11/04/21 02:40 11/05/21 04:10 Assessment/Plan Assessment/Plan (Tele-ICU Physician , Progress Note ) Available chart/ vitals / labs / Images reviewed Video assessment done using teleICU camera, rest of exam as per RN Discussed with RN , EXAM PER RN Events overnight : Afebrile I/O = even Drips: Pressors: LEVO Sedation gtt: ( RASS precedex 1.3, fent 300 anyl prop 50 versed 6 paralized ) VENT SETTINGS and ABG reviewed Not candidate for SBT today REVIEWED Cardiovascular Stability / Sedation Score / FI02/PEEP / ABG / CXR Consultants: Hospital course: (10/08) 77 y/o female admitted for COVID+, transfer from other facility - , VT 20L 70% 10/09 changed to BIPAP 10/10 Bipap 15 /8 100% _ precedex 0.4 10/11 - VT 35/80% prn bipap , precedex 0.4 - LEFT LE DVT 10/14 - VT 60L 75% , , BIPAP 60%- precedex 1.0, STARTED ZOSYN 10/15 - VT 40 100% , worsenign cxr on right , worsenign right sided pain 10/18 - ETT< card/pulm arrest - ROSC , PTX , chest tube on LEFT 10/18 - a fin RVR - cardioverted 10/19 - peep 18 60%, 10/20 - Thoravent on ADDITION to chest tube - both with leak, LEVO 10/21 - fio2 40% peep 5, follows commands 10/23 - fio2 75% peep 5 - BOTH CHEST TUBE sWITHOUT leak , tidal variations and minimal fluid drainage - fio2 70 % + 5 - CT CHEST with small PTX and large infitrate RLL 10/25- fio2 60 % +5 stareted Merrem and eraxis 10/30 - attempts to probe - desated more in probe position in 80 > 2 h 10/31 - PARALIZED peep 16 95% PAP 50 , 11/01 - initiated gentle DIURESIS , bumex 0.5 qd 11/02 - down to 70% , trying off paralizIS 11/05 = not tolerates TF - distended abd , coffee-ground in NG , Fio2 60% peep 14 A/P AHRF / ARDS due to severe COVID19 ( CTA neg for pe 10/07 - in other facility , reportedly - did not see report personally - INTUBATED - 10/18 - AC 26 - 375 - Fio2 60% peep 14 PAP 40 CONTINUE diuresis , trying to decrease paralitics card/pulm arrest -10/18 ROSC , PTX - CTH negative 10/19 -was following commands as per family worker post arrest - PARALIZED now Shock - levo -cortisol 11/02=14 - midodrin 11/05 RUED-Pthsdqkgovs-5/COVID-19 PNA ( Symptom onset unknown now DX unvaccinted --Dexamethasone - chanhged to 10 qd with wheexzng 10/10- 10/20 - OFF STEROIDS NOW -Hypercoagulable state Full dose lovenox with DVT and PE Pneumomediastinum on ct 10/06- not seen on cxr f/up 10/18 - PTX , RIGHT - chest tube clummped -Thoravent on ADDITION to chest tube 10/20 - removed now a fib RVR - cardioverted - 10/18 - in sinus , s/p amio bolus , on PO amio now RLL PNA - started on Zosyn 10/14 - > - resumed on 10/19 -> 10/24 - CT with significant infiltrate on RLL and secretiong is ETT - needs go back on abx - 10/25 sputum cx, MSSA, Kleb, Enterobac , Merrem a1 -> 11/01 -cont eraxis - consider stop 11/08 - repart cx line 11/05 Left lower extremity DVT dx 10/12 - small PE on CT 10/19 - fill dose lovenox - >eliquis 10/21 --> STOPPED 11/05 with suspected GIB - FOLLOW TO RESUME AC Hyperglycemia - ISS , close f/up Poor tolerance of TF - starting reglan 11/02 Elev TGL 500 11/05 - decrease propofol if possible , chack amyylase Scrotal edema? - follow will need trach and PEG as soon as possible as he is unlikely to be weaned off the ventilator anytime soon. POOR PROGNOSIS 11/01 - DISCUSSED WITH BROTHER ( WHO IS MD - HOSPITALIST IN OTHER STATE ) Lines : 10/18 - crntal line Central Line Necessity Reviewed) Hurd: 10/08 OG: Nutrition: TF to start 10/19 Analgesia: Anxiety/ delirium = VTE Prophylaxis: steve 80 bid- > eliquis Stress Ulcer Prophylaxis: po Plans in collaboration with bedside consultants and IM MDs. Discussed with RN to reach out if any questions or concerns A total of 40 minutes of critical care time was devoted to this patient today, required to treat and/or prevent further deterioration of critical care condition ( as above ) . JOHN CROW MD Nov 05, 2021 12:05
--- NOTE | 2021-11-05 13:05 | Diagnostic Imaging Report ---
INDICATION: Abdominal distention. COMPARISON: None FINDINGS: Single frontal radiographic view of the abdomen was obtained and demonstrates indwelling gastric tube with side-port likely at the GE junction. Tip is likely within the body the stomach. Small bowel loops are nondistended. There is no large collection of free intraperitoneal air. No unexpected extraosseous calcifications are seen. Osseous structures show no gross acute abnormalities. IMPRESSION: 1. Nonobstructed small bowel gas pattern. Dictated by: Dictated on workstation # [id number]
[2021-11-05] MEDS: NOREPINEPHRINE 8 MG/250 ML 250 ML IV SCH (16:22)
[2021-11-05] MEDS: traZODone 100 MG (DESYREL) TAB PO SCH (20:27)
[2021-11-05] MEDS: traZODone 50 MG (DESYREL) TAB PO SCH (20:27)
[2021-11-05] MEDS: AtorvaSTATin TABLET 10 MG TABLET PO SCH (20:27)
--- NOTE | 2021-11-05 21:57 | Progress Note ---
Subjective Subjective/Events-last exam Intubated and Sedated Review of Systems Unable to obtain due to intubation and sedation Objective Exam Last Set of Vital Signs Vital Signs Date Time Temp Pulse Resp B/P (MAP) Pulse Ox O2 Delivery O2 Flow Rate FiO2 11/05/21 21:46 71 30 94 65 11/05/21 20:40 Mechanical Ventilator 80.00 11/05/21 20:28 113/64 11/05/21 19:24 36.7 Capillary Refill : Less Than 3 Seconds I&O Intake and Output 11/05/21 00:00 Intake Total 1670 ml Output Total 3800 ml Balance -2130 ml IV Total 1400 ml Tube Feeding 20 ml Other 250 ml Output Urine Total 3800 ml Chest Tube Drainage Total 0 ml General: Other (Intubated and Sedated) Lungs: Other (Diminished breath sounds, breathing with vent) Heart: Regular Rate Abdomen: Normal Bowel Sounds, Soft Results/Procedures Lab Laboratory Tests 11/05/21 04:10: White Blood Count 16.4H, Red Blood Count 3.17L, Hemoglobin 9.0L, Hematocrit 30L, Mean Corpuscular Volume 94, Mean Corpuscular Hemoglobin 28, Mean Corpuscular Hemoglobin Concent 30L, Red Cell Distribution Width 16.3H, Platelet Count 306, Mean Platelet Volume 11.2, Immature Granulocyte % (Auto) 4, Neutrophils (%) (Auto) 84H, Lymphocytes (%) (Auto) 4L, Monocytes (%) (Auto) 7, Eosinophils (%) (Auto) 0, Basophils (%) (Auto) 1, Neutrophils # (Auto) 13.8H, Lymphocytes # (Auto) 0.7L, Monocytes # (Auto) 1.1H, Eosinophils # (Auto) 0.0, Basophils # (Auto) 0.1, Immature Granulocyte # (Auto) 0.7H, Neutrophils % (Manual) 79, Lymphocytes % (Manual) 2, Monocytes % (Manual) 4, Band Neutrophils 15, Anisocytosis SLIGHT, Blood Gas Puncture Site ART LINE, Blood Gas Patient Temperature 36.5, Arterial Blood pH 7.35L, Arterial Blood Partial Pressure CO2 62H, Arterial Blood Partial Pressure O2 52L, Arterial Blood HCO3 34H, Arterial Blood Total CO2 35.5H, Arterial Blood Oxygen Saturation 90L, Arterial Blood Base Excess 7.9H, To Test ART LINE, Blood Gas Ventilator Setting YES, Blood Gas Inspired Oxygen 60%, Sodium Level 143, Potassium Level 3.6, Chloride Level 102, Carbon Dioxide Level 30, Anion Gap 11, Blood Urea Nitrogen 13, Creatinine 0.73, Estimat Glomerular Filtration Rate 112, BUN/Creatinine Ratio 18, Glucose Level 118H, Calcium Level 7.8L, Corrected Calcium 9.4, Phosphorus Level 3.5, Magnesium Level 2.0, Total Bilirubin 0.4, Aspartate Amino Transf (AST/SGOT) 26, Alanine Aminotransferase (ALT/SGPT) 15, Alkaline Phosphatase 115, Total Protein 5.7L, Albumin 2.0L 11/05/21 11:15: Glucometer 100 11/05/21 12:06: Amylase Level 68 11/05/21 17:57: Glucometer 103 Microbiology 10/25/21 Gram Stain - Final, Complete 10/25/21 Sputum Culture - Final, Complete Usual Mixed Pat Staphylococcus aureus Probable Klebsiella/Enterobact 10/14/21 Urine Culture - Final, Complete NO GROWTH 10/14/21 Blood Culture - Final, Complete No growth Assessment/Plan Assessment/Plan (1) Acute respiratory failure due to COVID-19 Status: Acute Assessment & Plan: On admission- Continued dexamethasone. Remdesevir started per ICU. D dimer elevated, CTA negative for PE. Since that time had Actemra, completed remdesevir, had dexamethasone increased to 10 mg daily on day 5 of de xamethasone. Ultimately ended up requiring intubation on 10/18, after which had cardiac arrest. 1- worsening hypoxia in spite of ventilatory support, requiring 100% FiO2 and increasing PEEP, appreciate [facility] ICU recommendations. Discussed with patient's brother, for now they are continuing aggressive care, Surgery notified of need for trach and PEG. 10/30- Unfortunately has continued to worsen, continuing to increase PEEP and he has not improved, family wants to continue aggressive care at this time. 10/31- PEEP up to 16 and FiO2 remains at 100%, still having episodes of hypoxia, per family after more discussion, holding off on PEG and trach, but continuing aggressive care. 11/02- trying to diurese slightly and wean paralysis, discussed status with mother. 11/05: Intubated and Sedated, Having cuff leaks, possible trachea erosion, eICU managing (2) Pneumonia due to COVID-19 virus Status: Acute (3) Hypertension Status: Chronic Assessment & Plan: 11/05: Continue to monitor, on pressers (4) Liver mass, right lobe Status: Acute Assessment & Plan: Seen incidentally on chest CT, needs non-urgent CT liver protocol for follow up. (5) Deep vein thrombosis Status: Acute Assessment & Plan: Right peroneal, left femoral into calf veins, started on treatment dose enoxaparin 10/11, now on apixaban, may need transitioned back to enoxaparin a few days prior to trach/PEG if those are to occcur. Qualifiers: (6) Cardiorespiratory arrest Status: Acute Assessment & Plan: s/p cardiac arrest on 10/18 with multiple rounds of chest compression and ROSC x 2, after intubation. (7) Paroxysmal atrial fibrillation Status: Acute Assessment & Plan: 10/29/21 No further episodes since cardioversion, thought to be related to his arrest. Appreciate Cardiology recommendations, decreasing amiodarone today (weaning anyway, but decreasing further with some possible dropped beats) (8) Septic shock Status: Resolved ADARSH CLARK MD Nov 05, 2021 21:57
[2021-11-06] VITALS (28 sets, daily range): BP systolic 88–142; BP diastolic 44–74
[2021-11-06] MEDS: inSUlin ASPART (NovoLOG) 1 UNIT/0.01 ML (CHARGE PER UNIT) SQ SCH ×5 (00:09→23:06)
[2021-11-06] MEDS: CISATRACURIUM DRIP 250 ML IV SCH ×5 (00:10→23:05)
[2021-11-06] MEDS: DexMEDEtomidine 250 ML DRIP 250 ML IV SCH ×3 (00:10→16:31)
[2021-11-06] MEDS: METOCLOPRAMIDE INJ 10 MG/2 ML (REGLAN) IVP SCH ×5 (00:11→23:05)
[2021-11-06] MEDS: RT-ALBUTEROL HFA 8.5 GM INHALER IH SCH ×4 (02:28→21:28)
[2021-11-06] MEDS: MIDAZOLAM DRIP PRE-MIX 100 ML IV SCH ×3 (03:39→23:05)
[2021-11-06 04:44] LABS: ABG BASE EXCESS 4.9 MMOL/L (-2.5-2.5); ABG OXYGEN SATURATION 93 % (94-100); ABG PCO2 59 MMHG (35-45); ABG PO2 64 MMHG (79-93); ABG TCO2 32.3 MMOL/L (21.0-31.0); BASOPHILS # (AUTO) 0.1 10^3/uL (0.0-0.1); BASOPHILS % (AUTO) 1 % (0-10); EOSINOPHILS # (AUTO) 0.1 10^3/uL (0.0-0.3); EOSINOPHILS % (AUTO) 1 % (0-10); HEMATOCRIT 26 % (40-54); LYMPHOCYTES # (AUTO) 0.7 10^3/uL (1.0-4.0); LYMPHOCYTES % (AUTO) 5 % (12-44); MEAN CORPUSCULAR HEMOGLOBIN 28 pg (25-34); MEAN CORPUSCULAR HGB CONC 30 g/dL (32-36); MEAN CORPUSCULAR VOLUME 93 fL (80-99); MONOCYTES # (AUTO) 1.2 10^3/uL (0.0-1.0); MONOCYTES % (AUTO) 9 % (0-12); NEUTROPHILS # (AUTO) 11.3 10^3/uL (1.8-7.8); NEUTROPHILS % (AUTO) 82 % (42-75); PLATELET COUNT 281 10^3/uL (130-400); WHITE BLOOD COUNT 13.8 10^3/uL (4.3-11.0)
[2021-11-06 04:47] LABS: ABG PH 7.33 (7.37-7.43)
[2021-11-06 04:48] LABS: ALLENS TEST ART LINE; INSPIRED O2 65%; PATIENT TEMP 37.1; VENTILATOR YES
[2021-11-06 04:56] LABS: ALBUMIN 1.8 GM/DL (3.2-4.5)
[2021-11-06 04:58] LABS: CALCIUM 7.8 MG/DL (8.5-10.1)
[2021-11-06 04:59] LABS: TOTAL PROTEIN 5.1 GM/DL (6.4-8.2)
[2021-11-06 05:01] LABS: BILIRUBIN,TOTAL 0.4 MG/DL (0.1-1.0)
[2021-11-06 05:02] LABS: CREATININE SERUM 0.93 MG/DL (0.60-1.30); PHOSPHORUS 3.4 MG/DL (2.3-4.7)
[2021-11-06] MEDS: PROPOFOL DRIP (ICU) 100 ML IV SCH ×3 (05:06→14:20)
[2021-11-06] MEDS: fentaNYL DRIP PRE-MIX 250 ML IV SCH ×4 (05:06→21:32)
[2021-11-06] MEDS: POTASSIUM CL 10MEQ/50ML IVPB 50 ML IV SCH ×7 (05:23→16:39)
[2021-11-06] MEDS: KCL 20 MEQ TAB (K-DUR) PO SCH (05:24)
[2021-11-06] MEDS: MAGNESIUM 1 GM/100 ML IVPB 100 ML IV SCH (05:24)
--- NOTE | 2021-11-06 06:08 | Diagnostic Imaging Report ---
CHEST 1 VIEW, AP/PA ONLY INDICATION: Intubation. COMPARISON: 11/04/2021. FINDINGS: Stable ET and enteric tubes. Stable right subclavian central venous catheter. Stable right chest tube. Diffuse bilateral pulmonary consolidations have not substantially changed. No appreciable pneumothorax. Small right pleural effusion. Right chest wall soft tissue gas is unchanged. IMPRESSION: 1. Stable support devices. 2. No change in diffuse bilateral pulmonary opacities. Dictated by: Dictated on workstation # [id number]
--- NOTE | 2021-11-06 08:17 | Cardiology Progress Note ---
Progress Note-Cardiology Events since last exam Date Seen by Provider: Nov 06, 2021 Time Seen by Provider: 08:16 Events since last exam I am following him due to paroxysmal atrial fibrillation. He remains in the intensive care unit intubated and sedated. I did not see the patient due to his COVID status. I did speak with his nurse up today. On 11/05 I started him on midodrine 5 mg 3 times daily. The nurse was able to start weaning the norepinephrine infusion later in the day but this morning he is requiring a higher dose. There has been no recurrent atrial fibrillation. His oxygen requirements and PEEP remain high. Certain portions of this document may have been dictated utilizing voice recognition technology. Inherent to this technology, typographical and grammatical errors may exist. As much as I am diligent to identify and correct these mistakes, some errors may remain in the document. Vitals Last set of Vitals Signs Vital Signs 11/06/21 11/06/21 07:09 09:00 Temp 37.0 Pulse 77 Resp 30 B/P (MAP) 118/72 (87) Pulse Ox 98 O2 Delivery Mechanical Ventilator O2 Flow Rate 65.00 FiO2 65 Labs Labs Laboratory Tests 11/06/21 04:30 Exam Vital Signs Vital Signs Date Time Temp Pulse Resp B/P (MAP) Pulse Ox O2 Delivery O2 Flow Rate FiO2 11/06/21 09:00 37.0 11/06/21 09:00 77 30 118/72 (87) 98 Mechanical Ventilator 65.00 11/06/21 07:09 65 Physical Exam I did not examine the patient due to his COVID status. Labs Laboratory Tests Test 11/05/21 11:15 11/05/21 12:06 11/05/21 17:57 11/06/21 04:30 Range/Units Glucometer 100 103 70-110 MG/DL Amylase Level 68 25-125 U/L White Blood Count 13.8 H 4.3-11.0 10^3/uL Red Blood Count 2.83 L 4.30-5.52 10^6/uL Hemoglobin 8.0 L 13.3-17.7 g/dL Hematocrit 26 L 40-54 % Mean Corpuscular Volume 93 80-99 fL Mean Corpuscular Hemoglobin 28 25-34 pg Mean Corpuscular Hemoglobin Concent 30 L 32-36 g/dL Red Cell Distribution Width 16.7 H 10.0-14.5 % Platelet Count 281 130-400 10^3/uL Mean Platelet Volume 11.0 9.0-12.2 fL Immature Granulocyte % (Auto) 3 % Neutrophils (%) (Auto) 82 H 42-75 % Lymphocytes (%) (Auto) 5 L 12-44 % Monocytes (%) (Auto) 9 0-12 % Eosinophils (%) (Auto) 1 0-10 % Basophils (%) (Auto) 1 0-10 % Neutrophils # (Auto) 11.3 H 1.8-7.8 10^3/uL Lymphocytes # (Auto) 0.7 L 1.0-4.0 10^3/uL Monocytes # (Auto) 1.2 H 0.0-1.0 10^3/uL Eosinophils # (Auto) 0.1 0.0-0.3 10^3/uL Basophils # (Auto) 0.1 0.0-0.1 10^3/uL Immature Granulocyte # (Auto) 0.3 H 0.0-0.1 10^3/uL Blood Gas Puncture Site ART LINE Blood Gas Patient Temperature 37.1 Arterial Blood pH 7.33 *L 7.37-7.43 Arterial Blood Partial Pressure CO2 59 H 35-45 MMHG Arterial Blood Partial Pressure O2 64 L 79-93 MMHG Arterial Blood HCO3 31 H 23-27 MMOL/L Arterial Blood Total CO2 32.3 H 21.0-31.0 MMOL/L Arterial Blood Oxygen Saturation 93 L 94-100 % Arterial Blood Base Excess 4.9 H -2.5-2.5 MMOL/L To Test ART LINE Blood Gas Ventilator Setting YES Blood Gas Inspired Oxygen 65% Sodium Level 142 135-145 MMOL/L Potassium Level 3.0 L 3.6-5.0 MMOL/L Chloride Level 103 98-107 MMOL/L Carbon Dioxide Level 28 21-32 MMOL/L Anion Gap 11 5-14 MMOL/L Blood Urea Nitrogen 15 7-18 MG/DL Creatinine 0.93 0.60-1.30 MG/DL Estimat Glomerular Filtration Rate 85 BUN/Creatinine Ratio 16 Glucose Level 93 70-105 MG/DL Calcium Level 7.8 L 8.5-10.1 MG/DL Corrected Calcium 9.6 8.5-10.1 MG/DL Phosphorus Level 3.4 2.3-4.7 MG/DL Magnesium Level 2.0 1.6-2.4 MG/DL Total Bilirubin 0.4 0.1-1.0 MG/DL Aspartate Amino Transf (AST/SGOT) 25 5-34 U/L Alanine Aminotransferase (ALT/SGPT) 13 0-55 U/L Alkaline Phosphatase 89 40-136 U/L Total Protein 5.1 L 6.4-8.2 GM/DL Albumin 1.8 L 3.2-4.5 GM/DL Triglycerides Level 429 H <150 MG/DL Diagnosis/Problems Diagnosis/Problems (1) Paroxysmal atrial fibrillation Status: Acute Assessment & Plan: This was a new finding on this patient during this admission. This was most most likely brought on by the resuscitative efforts during his cardiopulmonary arrest and possibly Covid infection. Since his cardioversion on 10/18, he remains in sinus rhythm and sinus tachycardia on oral amiodarone. I decreased the dose of amiodarone on 10/26/2021. I now have him on a low-dose of amiodarone at 100 mg twice daily. I changed this to 100 mg once daily on 11/05. Since the atrial fibrillation was most likely brought on by his cardiopulmonary arrest and lasted less than 48 hours, he does not necessarily need anticoagulation for the atrial fibrillation. However, he is on apixaban due to left lower extremity deep venous thrombosis. (2) Septic shock Status: Resolved Assessment & Plan: Most likely related to Covid pneumonia. As above, we will continue norepinephrine infusion and wean as tolerated. Started him on low-dose oral midodrine on 11/05 to see if this may help get him off the norepinephrine infusion. However, he remains on norepinephrine infusion. I will increase the midodrine to 10 mg 3 times daily. Resolution Date/Time: 11/02/21 @ 21:57 (3) Primary hypertension Assessment & Plan: He has been intermittently on intravenous norepinephrine due to recurrent shock. All antihypertensive medication is on hold until he comes off vasopressor medication. I removed all of his outpatient antihypertensive medication from the inpatient list. (4) Mixed hyperlipidemia Assessment & Plan: Continue statin medication. (5) Acute respiratory failure due to COVID-19 Status: Acute Assessment & Plan: The hospitalist and eICU are managing the ventilator. He remains on high PEEP levels and high concentrations of oxygen. Prognosis remains guarded. (6) Deep vein thrombosis of left lower extremity Assessment & Plan: Possibly related to Covid infection. He continues on apixaban. KAIT MORENO JR, MD Nov 06, 2021 08:17
[2021-11-06] MEDS: ANIDULAFUNGIN INJECTION 100 MG in NS (IVPB) 100 ML IV SCH (09:23)
[2021-11-06] MEDS: BUMETANIDE 1 MG/4 ML (BUMEX) VIAL IV SCH (09:23)
[2021-11-06] MEDS: ACYCLOVIR 400 MG TABLET (ZOVIRAX) PO SCH ×2 (09:23→18:10)
[2021-11-06] MEDS: PANTOPRAZOLE 40 MG (PROTONIX) VIAL IV SCH ×2 (09:24→20:15)
[2021-11-06] MEDS: AMIODARONE 200 MG (CORDARONE) TAB PO SCH (09:24)
[2021-11-06] MEDS: MIDODRINE 10 MG (PROAMATINE) TAB PO SCH ×3 (09:24→20:15)
--- NOTE | 2021-11-06 11:11 | Pulmonary Progress Note ---
GEOVANI KHANNA MED STUDENT 11/06/21 1110: Subjective Date Seen by a Provider: Nov 06, 2021 Time Seen by a Provider: 06:15 Subjective/Events-last exam Dhruv Vang is sedated, paralyzed, and intubated. He does not respond to touch. Exam Exam Vital Signs Date Time Temp Pulse Resp B/P (MAP) Pulse Ox O2 Delivery O2 Flow Rate FiO2 11/06/21 10:23 82 30 97 65 11/06/21 10:00 80 30 115/64 (81) 96 Mechanical Ventilator 65.00 11/06/21 09:25 76 118/72 11/06/21 09:00 37.0 11/06/21 09:00 77 30 118/72 (87) 98 Mechanical Ventilator 65.00 11/06/21 08:00 75 30 117/72 (87) 98 Mechanical Ventilator 65.00 11/06/21 07:09 74 30 97 65 11/06/21 07:00 75 11/06/21 07:00 74 30 142/74 (96) 96 Mechanical Ventilator 65.00 11/06/21 06:00 72 30 113/71 (85) 96 Mechanical Ventilator 65.00 11/06/21 05:07 72 11/06/21 05:06 117/66 11/06/21 05:00 69 30 142/71 (94) 95 Mechanical Ventilator 65.00 11/06/21 04:34 37.1 11/06/21 04:00 70 30 106/58 (74) 96 Mechanical Ventilator 65.00 11/06/21 04:00 Mechanical Ventilator 65 11/06/21 03:39 71 11/06/21 03:00 73 30 130/65 (86) 95 Mechanical Ventilator 65.00 11/06/21 02:28 72 30 94 65 11/06/21 02:15 Mechanical Ventilator 65.00 11/06/21 02:00 72 30 108/63 (78) 93 Mechanical Ventilator 80.00 11/06/21 01:00 74 30 108/60 (76) 93 Mechanical Ventilator 80.00 11/06/21 01:00 74 11/06/21 00:41 Mechanical Ventilator 65 11/06/21 00:10 72 11/06/21 00:00 72 30 124/59 (80) 93 Mechanical Ventilator 80.00 11/05/21 23:00 71 30 89/56 (67) 93 Mechanical Ventilator 80.00 11/05/21 22:05 36.7 11/05/21 22:00 71 30 87/53 (64) 93 Mechanical Ventilator 80.00 11/05/21 21:46 71 30 94 65 11/05/21 21:00 70 30 99/57 (71) 98 Mechanical Ventilator 80.00 11/05/21 20:40 Mechanical Ventilator 80.00 11/05/21 20:28 113/64 11/05/21 20:28 69 11/05/21 20:08 69 30 122/68 (86) 96 Mechanical Ventilator 70.00 11/05/21 20:00 Mechanical Ventilator 80 11/05/21 19:24 36.7 11/05/21 19:00 70 11/05/21 19:00 70 30 116/66 (83) 96 Mechanical Ventilator 75.00 11/05/21 18:54 70 30 96 75 11/05/21 18:00 72 30 107/63 (78) 98 Mechanical Ventilator 75.00 11/05/21 17:39 72 30 117/62 11/05/21 17:00 73 30 96/55 (69) 94 Mechanical Ventilator 75.00 11/05/21 16:22 71 132/63 11/05/21 16:00 72 30 125/61 (82) 95 Mechanical Ventilator 75.00 11/05/21 16:00 Mechanical Ventilator 60 11/05/21 16:00 36.7 11/05/21 15:50 Mechanical Ventilator 75.00 11/05/21 15:45 71 30 92 75 11/05/21 15:00 74 30 92/54 (67) 93 Mechanical Ventilator 70.00 11/05/21 14:37 73 137/64 11/05/21 14:00 74 30 132/63 (86) 91 Mechanical Ventilator 70.00 11/05/21 13:00 75 30 130/62 (84) 93 Mechanical Ventilator 70.00 11/05/21 13:00 79 11/05/21 12:00 76 26 139/66 (90) 94 Mechanical Ventilator 70.00 11/05/21 12:00 Mechanical Ventilator 60 11/05/21 11:56 75 115/74 11/05/21 11:55 36.8 11/05/21 11:52 76 115/75 11/05/21 11:09 77 30 92 70 I & O 11/06/21 06:59 Intake Total 240 ml Output Total 1700 ml Balance -1460 ml Height & Weight Height: 5'10.00" Weight: 182lbs. 0.0oz. 82.500929ra; 25.79 BMI Method: General Appearance: Chronically ill, Other (Sedated and intubated. ) HEENT: Other (OG and ET tube) Neck: Supple Respiratory: Decreased Breath Sounds, Other (coarse breath sounds all lung linda, on ventilator TV 350 RR 30 Peep 13 FiO2 100%. Tachypneic due to vent settings.) Cardiovascular: Regular Rate, Rhythm, Other (BL hand and foot edema. ) Capillary Refill: Less Than 3 Seconds Peripheral Pulses: 1+ Dorsalis Pedis (R), 1+ Left Dors-Pedis (L) Gastrointestinal: normal bowel sounds, non tender, soft Extremity: Normal Capillary Refill, Pedal Edema, Other (scrotal swelling without overlying cellulitis. Roberts catheter in place, urine appears a light yellow color in the roberts. ) Neurologic/Psychiatric: Other (vent/sedated) Skin: No Diaphoresis; Pallor (faint) Lymphatic: No Adenopathy Results Lab Laboratory Tests 11/05/21 04:10 11/06/21 04:30 Assessment/Plan Assessment/Plan Covid 19 diagnosed 10/07 RLL Pneumonia -completed remdizivir, Actemra, diflucan, Zosyn (10/14-), Meropenem (10/25- 10/31), -on Anidulafungin (10/25-current) -on Acyclovir for HSV prophylaxis after Actemra Cardiopulmonary arrest 10/18 intubated new onset Atrial fibrillation after arrest Severe respiratory distress -on ventilator TV 350, RR 30, PEEP 13, FiO2 100% Labile blood pressure -too unstable for trach. on norepinephrine drip -midodrine started in hopes of transitioning off NE drip Right pneumothorax -s/p chest tube and thoravent placement, thoravent since removed. -chest tube still in place coffee-ground emesis from OG tube -450 mL output over 24 hours -on protonix. HGB slowly decreasing -transfuse if <7. 10/22 LLE DVT 10/19 Small pulmonary embolism -anticoagulants held due to emesis. Ultrasound LE today. 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 Attempting to wean when possible. -KUB shows small intestine bowel gas pattern, no acute pathology bilateral extremity edema -received bumex yesterday Hypokalemia -replace hypoalbuminemia -currently unable to feed hypertriglyceridemia -424 today, decreased from 510 yesterday -Amylase was normal at 68 today. Continue propofol Critical Care: Critically Ill Patient JOHN CROW MD 11/20/21 1608: Supervisory-Addendum Brief Verification & Attestation Participated in pt care: history, MDM, physical Personally performed: exam, history, MDM, supervision of care Care discussed with: Medical Student Procedures: n/a Results interpretation: Verified all documentation A medical student performed and documented this service. I reviewed information documented by the medical student . Medical student performed patients physical exam . Medical decision making was done during tele-rounds with this medical student and a bedside RN . Please see my notes for details /clarification of assessment and plans GEOVANI KHANNA MED STUDENT Nov 06, 2021 11:10 JOHN CORW MD Nov 20, 2021 16:08
--- NOTE | 2021-11-06 11:24 | Tele-ICU Progress Note ---
Subjective Date Seen by a Provider: Nov 06, 2021 Time Seen by a Provider: 11:24 Sepsis Event Evaluation Height, Weight, BMI Height: 5'10.00" Weight: 182lbs. 0.0oz. 82.337574hk; 25.79 BMI Method: Exam Exam Patient acknowledged, consented, and participated in this virtual visit which was conducted using real time audio/video Vital Signs Date Time Temp Pulse Resp B/P (MAP) Pulse Ox O2 Delivery O2 Flow Rate FiO2 11/06/21 10:23 82 30 97 65 11/06/21 10:00 80 30 115/64 (81) 96 Mechanical Ventilator 65.00 11/06/21 09:25 76 118/72 11/06/21 09:00 37.0 11/06/21 09:00 77 30 118/72 (87) 98 Mechanical Ventilator 65.00 11/06/21 08:00 75 30 117/72 (87) 98 Mechanical Ventilator 65.00 11/06/21 07:09 74 30 97 65 11/06/21 07:00 75 11/06/21 07:00 74 30 142/74 (96) 96 Mechanical Ventilator 65.00 11/06/21 06:00 72 30 113/71 (85) 96 Mechanical Ventilator 65.00 11/06/21 05:07 72 11/06/21 05:06 117/66 11/06/21 05:00 69 30 142/71 (94) 95 Mechanical Ventilator 65.00 11/06/21 04:34 37.1 11/06/21 04:00 70 30 106/58 (74) 96 Mechanical Ventilator 65.00 11/06/21 04:00 Mechanical Ventilator 65 11/06/21 03:39 71 11/06/21 03:00 73 30 130/65 (86) 95 Mechanical Ventilator 65.00 11/06/21 02:28 72 30 94 65 11/06/21 02:15 Mechanical Ventilator 65.00 11/06/21 02:00 72 30 108/63 (78) 93 Mechanical Ventilator 80.00 11/06/21 01:00 74 30 108/60 (76) 93 Mechanical Ventilator 80.00 11/06/21 01:00 74 11/06/21 00:41 Mechanical Ventilator 65 11/06/21 00:10 72 11/06/21 00:00 72 30 124/59 (80) 93 Mechanical Ventilator 80.00 11/05/21 23:00 71 30 89/56 (67) 93 Mechanical Ventilator 80.00 11/05/21 22:05 36.7 11/05/21 22:00 71 30 87/53 (64) 93 Mechanical Ventilator 80.00 11/05/21 21:46 71 30 94 65 11/05/21 21:00 70 30 99/57 (71) 98 Mechanical Ventilator 80.00 11/05/21 20:40 Mechanical Ventilator 80.00 11/05/21 20:28 113/64 11/05/21 20:28 69 11/05/21 20:08 69 30 122/68 (86) 96 Mechanical Ventilator 70.00 11/05/21 20:00 Mechanical Ventilator 80 11/05/21 19:24 36.7 11/05/21 19:00 70 11/05/21 19:00 70 30 116/66 (83) 96 Mechanical Ventilator 75.00 11/05/21 18:54 70 30 96 75 11/05/21 18:00 72 30 107/63 (78) 98 Mechanical Ventilator 75.00 11/05/21 17:39 72 30 117/62 11/05/21 17:00 73 30 96/55 (69) 94 Mechanical Ventilator 75.00 11/05/21 16:22 71 132/63 11/05/21 16:00 72 30 125/61 (82) 95 Mechanical Ventilator 75.00 11/05/21 16:00 Mechanical Ventilator 60 11/05/21 16:00 36.7 11/05/21 15:50 Mechanical Ventilator 75.00 11/05/21 15:45 71 30 92 75 11/05/21 15:00 74 30 92/54 (67) 93 Mechanical Ventilator 70.00 11/05/21 14:37 73 137/64 11/05/21 14:00 74 30 132/63 (86) 91 Mechanical Ventilator 70.00 11/05/21 13:00 75 30 130/62 (84) 93 Mechanical Ventilator 70.00 11/05/21 13:00 79 11/05/21 12:00 76 26 139/66 (90) 94 Mechanical Ventilator 70.00 11/05/21 12:00 Mechanical Ventilator 60 11/05/21 11:56 75 115/74 11/05/21 11:55 36.8 11/05/21 11:52 76 115/75 I & O 11/06/21 07:00 Intake Total 240 ml Output Total 1700 ml Balance -1460 ml Height & Weight Height: 5'10.00" Weight: 182lbs. 0.0oz. 82.309318kz; 25.79 BMI Method: General Appearance: Chronically ill, Obese, Other (Sedated and intubated) HEENT: TMs Normal Neck: Supple Respiratory: No Accessory Muscle Use, No Respiratory Distress, Crackles, Decreased Breath Sounds Cardiovascular: Regular Rate, Rhythm Capillary Refill: Less Than 3 Seconds Peripheral Pulses: 1+ Dorsalis Pedis (R), 1+ Left Dors-Pedis (L); 2+ Radial Pulses (R), 2+ Radial Pulses (L) Gastrointestinal: normal bowel sounds, non tender, soft Extremity: Normal Capillary Refill Neurologic/Psychiatric: Other (vent/sedated) Skin: Normal Color Lymphatic: No Adenopathy Results Lab Laboratory Tests 11/05/21 04:10 11/06/21 04:30 Assessment/Plan Assessment/Plan (Tele-ICU Physician , Progress Note ) Available chart/ vitals / labs / Images reviewed Video assessment done using teleICU camera, rest of exam as per RN Discussed with RN , EXAM PER RN Events overnight : Afebrile I/O = even Drips: Pressors: LEVO Sedation gtt: ( RASS precedex 1.3, fent 300 anyl prop 50 versed 6 paralized ) VENT SETTINGS and ABG reviewed Not candidate for SBT today REVIEWED Cardiovascular Stability / Sedation Score / FI02/PEEP / ABG / CXR Consultants: Hospital course: (10/08) 77 y/o female admitted for COVID+, transfer from other facility - , VT 20L 70% 10/09 changed to BIPAP 10/10 Bipap 100% _ precedex 0.4 10/11 - VT 35/80% prn bipap , precedex 0.4 - LEFT LE DVT 10/14 - VT 60L 75% , , BIPAP 60%- precedex 1.0, STARTED ZOSYN 10/15 - VT 40 100% , worsenign cxr on right , worsenign right sided pain 10/18 - ETT< card/pulm arrest - ROSC , PTX , chest tube on LEFT 10/18 - a fin RVR - cardioverted 10/19 - peep 18 60%, 12/25 - Thoravent on ADDITION to chest tube - both with leak, LEVO 10/21 - fio2 40% peep 5, follows commands 10/23 - fio2 75% peep 5 - BOTH CHEST TUBE sWITHOUT leak , tidal variations and minimal fluid drainage - fio2 70 % + 5 - CT CHEST with small PTX and large infitrate RLL 10/25- fio2 60 % +5 stareted Merrem and eraxis 10/30 - attempts to probe - desated more in probe position in 80 > 2 h 10/31 - PARALIZED peep 16 95% PAP 50 , 11/01 - initiated gentle DIURESIS , bumex 0.5 qd 11/02 - down to 70% , trying off paralizIS 11/05 = not tolerates TF - distended abd , coffee-ground in NG , Fio2 60% peep 14 , mididrin added 11/06- decreased HB - stating PPI GTT , with diuresis FIO2to 55% peep 14 DO NOT TOLERATED OFF PARALITICS A/P AHRF / ARDS due to severe COVID19 ( CTA neg for pe 10/07 - in other facility , reportedly - did not see report personally - INTUBATED - 10/18 - AC 26 - 375 - Fio2 55% peep 14 PAP 40 with diuresis FIO2to 55% peep 14 DO NOT TOLERATED OFF PARALITICS CONTINUE diuresis , trying to decrease paralitics card/pulm arrest -10/18 ROSC , PTX - CTH negative 10/19 -was following commands as per quality control expert post arrest - PARALIZED now Shock - levo same dose -cortisol 11/02=14 - midodrin 11/05 10 tid [id number]-7/COVID-19 PNA ( Symptom onset unknown now DX unvaccinted --Dexamethasone - chanhged to 10 qd with wheexzng 10/10- >10/20 - OFF STEROIDS NOW -Hypercoagulable state - DVT and PE- ON HOLD NOW Pneumomediastinum on ct 10/06- not seen on cxr f/up 10/18 - PTX , RIGHT - chest tube in place clummped ( Thoravent on ADDITION to chest tube 10/20 - removed now a fib RVR - cardioverted - 10/18 - in sinus , s/p amio bolus , on PO amio now - ECHO 10/12 - EF and RVSP WNL RLL PNA - started on Zosyn 10/14 - > - resumed on 10/19 -> 10/24 - CT with significant infiltrate on RLL and secretiong is ETT - needs go back on abx - 10/25 sputum cx, MSSA, Kleb, Enterobac , Merrem a1 -> 11/01 -cont eraxis - consider stop 11/08 - repeated cx line 11/05 Left lower extremity DVT dx 10/12 - small PE on CT 10/19 - fill dose lovenox - >eliquis 10/21 --> STOPPED 11/05 with suspected GIB - FOLLOW TO RESUME AC - 11/06- survelance US ( off AC with GIB ) Poor tolerance of TF - starting reglan 11/02 , KUB nonspecific -MIGHT NEED TPN Elev TGL 500 11/05 - decrease propofol if possible , amylase 11/06 WNL Scrotal edema? - follow 11/06 DISCUSSED WITH BROTHER ( WHO IS MD - HOSPITALIST IN OTHER STATE ) Lines : 10/18 - crntal line Central Line Necessity Reviewed) Hurd: 10/08 OG: Nutrition: TF on hold Analgesia: Anxiety/ delirium = VTE Prophylaxis: on hold Stress Ulcer Prophylaxis: ppi gtt Plans in collaboration with bedside consultants and IM MDs. Discussed with RN to reach out if any questions or concerns A total of 40 minutes of critical care time was devoted to this patient today, required to treat and/or prevent further deterioration of critical care condition ( as above ) . JOHN CROW MD Nov 06, 2021 11:24
[2021-11-06] MEDS: PANTOPRAZOLE INJECTION 200 MG in NS (IVPB) 100 ML IV SCH (12:55)
[2021-11-06] MEDS: NOREPINEPHRINE 8 MG/250 ML 250 ML IV SCH ×2 (12:57→23:05)
[2021-11-06] MEDS: LIDOCAINE 4% (SALONPAS) PATCH TOP SCH (12:57)
--- NOTE | 2021-11-06 15:31 | Diagnostic Imaging Report ---
PROCEDURE: US Venous Lower Ext Igor. TECHNIQUE: Multiple real-time grayscale images were obtained over the lower extremities in various projections, bilaterally. Additional duplex Doppler and color Doppler images were also obtained. INDICATION: DVT, follow-up. COMPARISON: Correlation is made with prior study of 10/11/2021. FINDINGS: On today's study, the right lower extremity deep venous system appears clear. There is normal compressibility with normal response to augmentation and Valsalva. Left lower extremity femoropopliteal system remains clear. There continues to be some thrombus in the left peroneal vein which appears to be occlusive. No fluid collections are seen. IMPRESSION: 1. No evidence of right lower extremity DVT. 2. There is residual occlusive thrombus in the left peroneal vein. Dictated by: Dictated on workstation # [id number]
[2021-11-06] MEDS: traZODone 50 MG (DESYREL) TAB PO SCH (20:15)
[2021-11-06] MEDS: traZODone 100 MG (DESYREL) TAB PO SCH (20:16)
[2021-11-06] MEDS: AtorvaSTATin TABLET 10 MG TABLET PO SCH (20:16)
--- NOTE | 2021-11-06 20:44 | Progress Note ---
Subjective Subjective/Events-last exam Patient intubated and sedated. No ON events. Hgb continues to trend down. Review of Systems Unable to obtain due to intubation and sedation Objective Exam Last Set of Vital Signs Vital Signs Date Time Temp Pulse Resp B/P (MAP) Pulse Ox O2 Delivery O2 Flow Rate FiO2 11/06/21 20:13 78 30 91/53 (66) 93 Mechanical Ventilator 70.00 11/06/21 19:37 36.9 11/06/21 18:27 70 Capillary Refill : Less Than 3 Seconds I&O Intake and Output 11/06/21 00:00 Intake Total 240 ml Output Total 1725 ml Balance -1485 ml Other 240 ml Output Urine Total 1725 ml Chest Tube Drainage Total 0 ml General: Other (Intubated and sedated) Lungs: Other (Course breath sounds throughout) Heart: Regular Rate, No Murmurs Abdomen: Other (distended, normal bowel sounds) Extremities: Other (2+ pitting edema) Results/Procedures Lab Laboratory Tests 11/06/21 04:30: White Blood Count 13.8H, Red Blood Count 2.83L, Hemoglobin 8.0L, Hematocrit 26L, Mean Corpuscular Volume 93, Mean Corpuscular Hemoglobin 28, Mean Corpuscular Hemoglobin Concent 30L, Red Cell Distribution Width 16.7H, Platelet Count 281, Mean Platelet Volume 11.0, Immature Granulocyte % (Auto) 3, Neutrophils (%) (Auto) 82H, Lymphocytes (%) (Auto) 5L, Monocytes (%) (Auto) 9, Eosinophils (%) (Auto) 1, Basophils (%) (Auto) 1, Neutrophils # (Auto) 11.3H, Lymphocytes # (Auto) 0.7L, Monocytes # (Auto) 1.2H, Eosinophils # (Auto) 0.1, Basophils # (Auto) 0.1, Immature Granulocyte # (Auto) 0.3H, Blood Gas Puncture Site ART LINE, Blood Gas Patient Temperature 37.1, Arterial Blood pH 7.33*L, Arterial Blood Partial Pressure CO2 59H, Arterial Blood Partial Pressure O2 64L, Arterial Blood HCO3 31H, Arterial Blood Total CO2 32.3H, Arterial Blood Oxygen Saturation 93L, Arterial Blood Base Excess 4.9H, To Test ART LINE, Blood Gas Ventilator Setting YES, Blood Gas Inspired Oxygen 65%, Sodium Level 142, Potassium Level 3.0L, Chloride Level 103, Carbon Dioxide Level 28, Anion Gap 11, Blood Urea Nitrogen 15, Creatinine 0.93, Estimat Glomerular Filtration Rate 85, BUN/Creatinine Ratio 16, Glucose Level 93, Calcium Level 7.8L, Corrected Calcium 9.6, Phosphorus Level 3.4, Magnesium Level 2.0, Total Bilirubin 0.4, Aspartate Amino Transf (AST/SGOT) 25, Alanine Aminotransferase (ALT/SGPT) 13, Alkaline Phosphatase 89, Total Protein 5.1L, Albumin 1.8L, Triglycerides Level 429H 11/06/21 11:43: Glucometer 80 11/06/21 13:05: Potassium Level 3.4L 11/06/21 17:39: Glucometer 78 Microbiology 11/05/21 Blood Culture - Preliminary, Resulted No growth 10/25/21 Gram Stain - Final, Complete 10/25/21 Sputum Culture - Final, Complete Usual Mixed Pat Staphylococcus aureus Probable Klebsiella/Enterobact 10/14/21 Urine Culture - Final, Complete NO GROWTH Assessment/Plan Assessment/Plan (1) Acute respiratory failure due to COVID-19 Status: Acute Assessment & Plan: On admission- Continued dexamethasone. Remdesevir started per ICU. D dimer elevated, CTA negative for PE. Since that time had Actemra, completed remdesevir, had dexamethasone increased to 10 mg daily on day 5 of dexamethasone. Ultimately ended up requiring intubation on 10/18, after which had cardiac arrest. 1/3- worsening hypoxia in spite of ventilatory support, requiring 100% FiO2 and increasing PEEP, appreciate [facility] ICU recommendations. Discussed with patient's brother, for now they are continuing aggressive care, Surgery notified of need for trach and PEG. 10/30- Unfortunately has continued to worsen, continuing to increase PEEP and he has not improved, family wants to continue aggressive care at this time. 10/31- PEEP up to 16 and FiO2 remains at 100%, still having episodes of hypoxia, per family after more discussion, holding off on PEG and trach, but continuing aggressive care. 11/02- trying to diurese slightly and wean paralysis, discussed status with mother. 11/05: Intubated and Sedated, Having cuff leaks, possible trachea erosion, eICU managing 11/06: Intubated and Sedated, unable to tolerate off paralytics (2) Pneumonia due to COVID-19 virus Status: Acute (3) Hypertension Status: Chronic Assessment & Plan: 11/05: Continue to monitor, on pressers (4) Liver mass, right lobe Status: Acute Assessment & Plan: Seen incidentally on chest CT, needs non-urgent CT liver protocol for follow up. (5) Deep vein thrombosis Status: Acute Assessment & Plan: Right peroneal, left femoral into calf veins, started on treatment dose enoxaparin 10/11, now on apixaban, may need transitioned back to enoxaparin a few days prior to trach/PEG if those are to occcur. Qualifiers: (6) Cardiorespiratory arrest Status: Acute Assessment & Plan: s/p cardiac arrest on 10/18 with multiple rounds of chest compression and ROSC x 2, after intubation. (7) Paroxysmal atrial fibrillation Status: Acute Assessment & Plan: 10/29/21 No further episodes since cardioversion, thought to be related to his arrest. Appreciate Cardiology recommendations, decreasing amiodarone today (weaning anyway, but decreasing further with some possible dropped beats) (8) Septic shock Status: Resolved (9) GI bleed Status: Acute Assessment & Plan: 11/06: Hgb trending down, been on anticoagulation for A fib and DVT, started on PPI gtts today (10) Scrotal swelling Status: Acute Assessment & Plan: 11/06: Elevate scrotum as tolerated ADARSH CLARK MD Nov 06, 2021 20:44
[2021-11-07] VITALS (30 sets, daily range): BP systolic 81–118; BP diastolic 49–69
[2021-11-07] MEDS: RT-ALBUTEROL HFA 8.5 GM INHALER IH SCH ×4 (01:30→21:17)
[2021-11-07] MEDS: PROPOFOL DRIP (ICU) 100 ML IV SCH ×4 (03:40→14:03)
[2021-11-07] MEDS: CISATRACURIUM DRIP 250 ML IV SCH ×5 (03:40→23:39)
[2021-11-07 03:54] LABS: BASOPHILS # (AUTO) 0.1 10^3/uL (0.0-0.1); BASOPHILS % (AUTO) 1 % (0-10); EOSINOPHILS # (AUTO) 0.1 10^3/uL (0.0-0.3); EOSINOPHILS % (AUTO) 0 % (0-10); HEMATOCRIT 27 % (40-54); HEMOGLOBIN 8.1 g/dL (13.3-17.7); LYMPHOCYTES # (AUTO) 0.7 10^3/uL (1.0-4.0); LYMPHOCYTES % (AUTO) 4 % (12-44); MEAN CORPUSCULAR HEMOGLOBIN 29 pg (25-34); MEAN CORPUSCULAR HGB CONC 30 g/dL (32-36); MEAN CORPUSCULAR VOLUME 94 fL (80-99); MEAN PLATELET VOLUME 11.5 fL (9.0-12.2); MONOCYTES # (AUTO) 1.8 10^3/uL (0.0-1.0); MONOCYTES % (AUTO) 9 % (0-12); NEUTROPHILS # (AUTO) 16.1 10^3/uL (1.8-7.8); NEUTROPHILS % (AUTO) 83 % (42-75); PLATELET COUNT 319 10^3/uL (130-400); WHITE BLOOD COUNT 19.3 10^3/uL (4.3-11.0)
[2021-11-07 03:55] LABS: ABG BASE EXCESS 2.7 MMOL/L (-2.5-2.5); ABG OXYGEN SATURATION 85 % (94-100); ABG PCO2 62 MMHG (35-45); ABG PO2 53 MMHG (79-93); ABG TCO2 30.7 MMOL/L (21.0-31.0)
[2021-11-07 03:56] LABS: ABG PH 7.29 (7.37-7.43)
[2021-11-07 03:57] LABS: ALLENS TEST ART LINE; INSPIRED O2 75%; PATIENT TEMP 36.7; VENTILATOR YES
[2021-11-07 04:05] LABS: ALBUMIN 1.8 GM/DL (3.2-4.5); POTASSIUM 3.5 MMOL/L (3.6-5.0)
[2021-11-07 04:06] LABS: CALCIUM 7.9 MG/DL (8.5-10.1)
[2021-11-07 04:07] LABS: TOTAL PROTEIN 5.1 GM/DL (6.4-8.2)
[2021-11-07 04:09] LABS: BILIRUBIN,TOTAL 0.5 MG/DL (0.1-1.0)
[2021-11-07 04:11] LABS: CREATININE SERUM 1.09 MG/DL (0.60-1.30); PHOSPHORUS 3.9 MG/DL (2.3-4.7)
[2021-11-07] MEDS: POTASSIUM CL 10MEQ/50ML IVPB 50 ML IV SCH ×3 (04:13→05:03)
[2021-11-07 04:14] LABS: MAGNESIUM 1.9 MG/DL (1.6-2.4)
[2021-11-07] MEDS: MAGNESIUM 1 GM/100 ML IVPB 100 ML IV SCH (04:14)
[2021-11-07] MEDS: KCL 20 MEQ TAB (K-DUR) PO SCH (04:14)
[2021-11-07] MEDS: inSUlin ASPART (NovoLOG) 1 UNIT/0.01 ML (CHARGE PER UNIT) SQ SCH ×4 (04:15→23:37)
[2021-11-07] MEDS: METOCLOPRAMIDE INJ 10 MG/2 ML (REGLAN) IVP SCH ×4 (05:02→23:37)
[2021-11-07] MEDS: DexMEDEtomidine 250 ML DRIP 250 ML IV SCH ×2 (05:03→23:38)
[2021-11-07] MEDS: fentaNYL DRIP PRE-MIX 250 ML IV SCH ×4 (05:57→22:38)
[2021-11-07] MEDS: ACYCLOVIR 400 MG TABLET (ZOVIRAX) PO SCH ×2 (08:18→18:56)
[2021-11-07] MEDS: BUMETANIDE 1 MG/4 ML (BUMEX) VIAL IV SCH (08:19)
[2021-11-07] MEDS: AMIODARONE 200 MG (CORDARONE) TAB PO SCH (08:19)
[2021-11-07] MEDS: PANTOPRAZOLE 40 MG (PROTONIX) VIAL IV SCH ×2 (08:19→21:05)
[2021-11-07] MEDS: LIDOCAINE 4% (SALONPAS) PATCH TOP SCH (08:20)
[2021-11-07] MEDS: MIDODRINE 10 MG (PROAMATINE) TAB PO SCH ×3 (08:20→21:04)
--- NOTE | 2021-11-07 08:22 | Cardiology Progress Note ---
Progress Note-Cardiology Events since last exam Date Seen by Provider: Nov 07, 2021 Time Seen by Provider: 08:21 Events since last exam I am following him due to atrial fibrillation. He remains intubated and sedated in the intensive care unit. Since starting midodrine, he has been able to intermittently be weaned off norepinephrine infusion. His FiO2 is now down to 80%. I did not see the patient due to his COVID status. I did speak with the staff of today. Certain portions of this document may have been dictated utilizing voice recognition technology. Inherent to this technology, typographical and grammatical errors may exist. As much as I am diligent to identify and correct these mistakes, some errors may remain in the document. Vitals Last set of Vitals Signs Vital Signs 11/07/21 11/07/21 11/07/21 11/07/21 06:00 07:49 08:00 08:35 Temp 36.7 Pulse 80 Resp 30 B/P (MAP) 105/57 Pulse Ox 93 O2 Delivery Mechanical Ventilator O2 Flow Rate 80.00 FiO2 80 Labs Labs Laboratory Tests 11/06/21 13:05 11/07/21 03:45 Exam Vital Signs Vital Signs Date Time Temp Pulse Resp B/P (MAP) Pulse Ox O2 Delivery O2 Flow Rate FiO2 11/07/21 08:35 80 30 105/57 11/07/21 08:00 Mechanical Ventilator 80 11/07/21 08:00 36.7 11/07/21 07:49 93 11/07/21 06:00 80.00 Physical Exam I did not examine the patient due to his COVID status. Labs Laboratory Tests Test 11/06/21 11:43 11/06/21 13:05 11/06/21 17:39 11/06/21 23:03 Range/Units Glucometer 80 78 85 70-110 MG/DL Potassium Level 3.4 L 3.6-5.0 MMOL/L Test 11/07/21 03:45 Range/Units White Blood Count 19.3 H 4.3-11.0 10^3/uL Red Blood Count 2.84 L 4.30-5.52 10^6/uL Hemoglobin 8.1 L 13.3-17.7 g/dL Hematocrit 27 L 40-54 % Mean Corpuscular Volume 94 80-99 fL Mean Corpuscular Hemoglobin 29 25-34 pg Mean Corpuscular Hemoglobin Concent 30 L 32-36 g/dL Red Cell Distribution Width 17.2 H 10.0-14.5 % Platelet Count 319 130-400 10^3/uL Mean Platelet Volume 11.5 9.0-12.2 fL Immature Granulocyte % (Auto) 3 % Neutrophils (%) (Auto) 83 H 42-75 % Lymphocytes (%) (Auto) 4 L 12-44 % Monocytes (%) (Auto) 9 0-12 % Eosinophils (%) (Auto) 0 0-10 % Basophils (%) (Auto) 1 0-10 % Neutrophils # (Auto) 16.1 H 1.8-7.8 10^3/uL Lymphocytes # (Auto) 0.7 L 1.0-4.0 10^3/uL Monocytes # (Auto) 1.8 H 0.0-1.0 10^3/uL Eosinophils # (Auto) 0.1 0.0-0.3 10^3/uL Basophils # (Auto) 0.1 0.0-0.1 10^3/uL Immature Granulocyte # (Auto) 0.6 H 0.0-0.1 10^3/uL Blood Gas Puncture Site ART LINE Blood Gas Patient Temperature 36.7 Arterial Blood pH 7.29 *L 7.37-7.43 Arterial Blood Partial Pressure CO2 62 H 35-45 MMHG Arterial Blood Partial Pressure O2 53 L 79-93 MMHG Arterial Blood HCO3 29 H 23-27 MMOL/L Arterial Blood Total CO2 30.7 21.0-31.0 MMOL/L Arterial Blood Oxygen Saturation 85 L 94-100 % Arterial Blood Base Excess 2.7 H -2.5-2.5 MMOL/L To Test ART LINE Blood Gas Ventilator Setting YES Blood Gas Inspired Oxygen 75% Sodium Level 141 135-145 MMOL/L Potassium Level 3.5 L 3.6-5.0 MMOL/L Chloride Level 104 98-107 MMOL/L Carbon Dioxide Level 24 21-32 MMOL/L Anion Gap 13 5-14 MMOL/L Blood Urea Nitrogen 18 7-18 MG/DL Creatinine 1.09 0.60-1.30 MG/DL Estimat Glomerular Filtration Rate 71 BUN/Creatinine Ratio 17 Glucose Level 81 70-105 MG/DL Calcium Level 7.9 L 8.5-10.1 MG/DL Corrected Calcium 9.7 8.5-10.1 MG/DL Phosphorus Level 3.9 2.3-4.7 MG/DL Magnesium Level 1.9 1.6-2.4 MG/DL Total Bilirubin 0.5 0.1-1.0 MG/DL Aspartate Amino Transf (AST/SGOT) 21 5-34 U/L Alanine Aminotransferase (ALT/SGPT) 12 0-55 U/L Alkaline Phosphatase 87 40-136 U/L Total Protein 5.1 L 6.4-8.2 GM/DL Albumin 1.8 L 3.2-4.5 GM/DL Diagnosis/Problems Diagnosis/Problems (1) Paroxysmal atrial fibrillation Status: Acute Assessment & Plan: This was a new finding on this patient during this admission. This was most most likely brought on by the resuscitative efforts during his cardiopulmonary arrest and possibly Covid infection. Since his cardioversion on 10/18, he remains in sinus rhythm and sinus tachycardia on oral amiodarone. I decreased the dose of amiodarone on 10/26/2021. I changed this to 100 mg once daily on 11/05. Since the atrial fibrillation was most likely brought on by his cardiopulmonary arrest and lasted less than 48 hours, he does not necessarily need anticoagulation for the atrial fibrillation. However, he is on apixaban due to left lower extremity deep venous thrombosis. (2) Septic shock Status: Resolved Assessment & Plan: Most likely related to Covid pneumonia. As above, we will continue norepinephrine infusion and wean as tolerated. I started him on low- dose oral midodrine on 11/05 to see if this may help get him off the norepinephrine infusion. I increased the dose on 11/06 and his blood pressures have now improved. Resolution Date/Time: 11/02/21 @ 21:57 (3) Primary hypertension Assessment & Plan: He has been intermittently on intravenous norepinephrine due to recurrent shock. All antihypertensive medication is on hold until he comes off vasopressor medication. I removed all of his outpatient antihypertensive medication from the inpatient list. (4) Mixed hyperlipidemia Assessment & Plan: Continue statin medication. (5) Acute respiratory failure due to COVID-19 Status: Acute Assessment & Plan: The hospitalist and eICU are managing the ventilator. He remains on high PEEP levels and high concentrations of oxygen. Prognosis remains guarded. (6) Deep vein thrombosis of left lower extremity Assessment & Plan: Possibly related to Covid infection. He continues on apixaban. KAIT MORENO JR, MD Nov 07, 2021 08:22
[2021-11-07] MEDS: ANIDULAFUNGIN INJECTION 100 MG in NS (IVPB) 100 ML IV SCH (08:35)
[2021-11-07] MEDS: MIDAZOLAM DRIP PRE-MIX 100 ML IV SCH ×2 (08:35→18:57)
--- NOTE | 2021-11-07 08:49 | Tele-ICU Progress Note ---
Subjective Date Seen by a Provider: Nov 07, 2021 Time Seen by a Provider: 08:49 Subjective/Events-last exam Patient remained on mechanical ventilation, he is sedated and paralyzed chemically. He is currently on 80% FiO2 with a PEEP of 12 and 30% FiO2. Chest x-ray unchanged without any improvement. His scrotum is markedly edematous most likely due to low albumin state. RN states that he is constipated but is not getting much nutrition via NG tube. His venous Doppler showed residual thrombus in the left peroneal vein Review of Systems ros per rn Sepsis Event Evaluation Height, Weight, BMI Height: 5'10.00" Weight: 182lbs. 0.0oz. 82.334710vh; 25.79 BMI Method: Exam Exam Patient acknowledged, consented, and participated in this virtual visit which was conducted using real time audio/video Vital Signs Date Time Temp Pulse Resp B/P (MAP) Pulse Ox O2 Delivery O2 Flow Rate FiO2 11/07/21 08:35 80 30 105/57 11/07/21 07:49 79 30 93 80 11/07/21 06:00 79 30 98/56 (70) 92 Mechanical Ventilator 80.00 11/07/21 05:03 81 11/07/21 05:00 79 30 118/56 (76) 92 Mechanical Ventilator 80.00 11/07/21 04:08 Mechanical Ventilator 80.00 11/07/21 04:07 Mechanical Ventilator 75 11/07/21 04:00 79 30 100/52 (68) 91 Mechanical Ventilator 75.00 11/07/21 03:46 36.7 11/07/21 03:41 78 11/07/21 03:40 103/51 11/07/21 03:10 Mechanical Ventilator 75.00 11/07/21 03:00 79 30 101/51 (68) 92 Mechanical Ventilator 70.00 11/07/21 02:00 78 30 101/51 (68) 93 Mechanical Ventilator 70.00 11/07/21 01:30 79 30 91 70 11/07/21 01:00 80 30 98/51 (67) 92 Mechanical Ventilator 70.00 11/07/21 01:00 80 11/07/21 00:00 Mechanical Ventilator 70 11/07/21 00:00 36.9 11/07/21 00:00 80 30 98/51 (67) 92 Mechanical Ventilator 70.00 11/06/21 23:05 100/51 11/06/21 23:05 80 11/06/21 23:00 80 30 88/44 (59) 92 Mechanical Ventilator 70.00 11/06/21 22:00 80 30 90/48 (62) 92 Mechanical Ventilator 70.00 11/06/21 21:28 80 30 91 70 11/06/21 21:00 79 30 92/49 (63) 88 Mechanical Ventilator 70.00 11/06/21 20:40 Mechanical Ventilator 70 11/06/21 20:13 78 30 91/53 (66) 93 Mechanical Ventilator 70.00 11/06/21 19:37 36.9 11/06/21 19:00 81 30 92/54 (67) 93 Mechanical Ventilator 65.00 11/06/21 19:00 81 11/06/21 18:27 82 30 95 70 11/06/21 18:00 85 30 89/52 (64) 93 Mechanical Ventilator 65.00 11/06/21 17:00 88 30 101/56 (71) 92 Mechanical Ventilator 65.00 11/06/21 16:31 89 128/63 11/06/21 16:00 37.5 11/06/21 16:00 89 30 94/57 (69) 96 Mechanical Ventilator 65.00 11/06/21 16:00 Mechanical Ventilator 65 11/06/21 15:00 85 34 99/57 (71) 93 Mechanical Ventilator 65.00 11/06/21 14:20 77 98/60 11/06/21 14:20 78 110/61 11/06/21 14:00 78 30 108/62 (77) 100 Mechanical Ventilator 65.00 11/06/21 13:00 77 30 97/61 (73) 100 Mechanical Ventilator 65.00 11/06/21 12:56 77 30 116/63 11/06/21 12:16 78 11/06/21 12:00 36.8 11/06/21 12:00 Mechanical Ventilator 65 11/06/21 12:00 78 30 103/64 (77) 98 Mechanical Ventilator 65.00 11/06/21 11:00 80 30 126/69 (88) 97 Mechanical Ventilator 65.00 11/06/21 10:23 82 30 97 65 11/06/21 10:00 80 30 115/64 (81) 96 Mechanical Ventilator 65.00 11/06/21 09:25 76 118/72 11/06/21 09:00 37.0 11/06/21 09:00 77 30 118/72 (87) 98 Mechanical Ventilator 65.00 I & O 11/07/21 07:00 Intake Total 240 ml Output Total 1225 ml Balance -985 ml Height & Weight Height: 5'10.00" Weight: 182lbs. 0.0oz. 82.229042gn; 25.79 BMI Method: General Appearance: Chronically ill, Other (Sedated and intubated. ) HEENT: Other (OG and ET tube) Neck: Supple Respiratory: Decreased Breath Sounds, Other (coarse breath sounds all lung linda, on ventilator TV 350 RR 30 Peep 13 FiO2 100%. Tachypneic due to vent settings.) Cardiovascular: Regular Rate, Rhythm, Other (BL hand and foot edema. ) Capillary Refill: Less Than 3 Seconds Peripheral Pulses: 1+ Dorsalis Pedis (R), 1+ Left Dors-Pedis (L) Gastrointestinal: normal bowel sounds, non tender, soft Extremity: Normal Capillary Refill, Pedal Edema, Other (scrotal swelling without overlying cellulitis. Roberts catheter in place, urine appears a light yellow color in the roberts. ) Neurologic/Psychiatric: Other (vent/sedated) Skin: No Diaphoresis; Pallor (faint) Lymphatic: No Adenopathy Results Lab Laboratory Tests 11/06/21 04:30 11/06/21 13:05 11/07/21 03:45 Assessment/Plan Assessment/Plan 1. ARDS due to Covid19 pneumonia very little or no improvement 2. Acute hypoxic respiratory failure unable to wean from vent. 3. History of cardiac arrest following development of tension pneumothorax after intubation status post chest tube placement and CVC insertion on 10/18/2021. 4. Atrial fibrillation with rapid ventricular rate currently converted to nsr, being followed by cardiology 5. Possible superimposed bacterial pneumonia on broad-spectrum antibiotic course completed.. 6. DVT LLE 7. Septic shock on vaso pressors. 8. possible UGI Bleed on protonix 9. Recommendations 1. Continue mechanical ventilatory support and wean FiO2 as tolerated. 2. Patient probably will need trach and PEG as soon as possible as he is unlikely to be weaned off the ventilator anytime soon. However his overall prog nosis is poor. 3. Amiodarone per cardiology. 4. Anticoaulants on hold due to GI bleed. 5. anti fungal anti viral treatment prophylactically. 6. He is full code per family. 7. Discussed with olericulturistrn licensed practical: Ventilator Management Time spent with patient (mins): 30 MIRNA TOBAR MD Nov 07, 2021 08:49
[2021-11-07] MEDS ORDERED: MAGNESIUM CITRATE 300 ML BTL NG ONE (09:00)
[2021-11-07] MEDS: PANTOPRAZOLE INJECTION 200 MG in NS (IVPB) 100 ML IV SCH (11:49)
[2021-11-07] MEDS: NOREPINEPHRINE 8 MG/250 ML 250 ML IV SCH ×2 (13:09→23:39)
[2021-11-07] MEDS ORDERED: NS IV 500 ML 500 ML ONE (13:13)
--- NOTE | 2021-11-07 20:18 | Progress Note ---
Subjective Subjective/Events-last exam Intubated and sedated. No acute ON events. FiO2 is creeping up. Review of Systems Unable to obtain due to intubation and sedation Objective Exam Last Set of Vital Signs Vital Signs Date Time Temp Pulse Resp B/P (MAP) Pulse Ox O2 Delivery O2 Flow Rate FiO2 11/07/21 19:51 36.3 11/07/21 19:00 79 11/07/21 18:57 30 130/66 11/07/21 18:29 93 80 11/07/21 18:00 Mechanical Ventilator 80.00 Capillary Refill : Less Than 3 Seconds I&O Intake and Output 11/07/21 00:00 Intake Total 240 ml Output Total 1400 ml Balance -1160 ml Other 240 ml Output Urine Total 1350 ml Gastric Drainage Total 50 ml Chest Tube Drainage Total 0 ml General: Other (intubated and sedated) Lungs: Other (diminished breath sounds, end exp wheezing) Heart: Regular Rate, No Murmurs Abdomen: Other (mild distention) Extremities: Other (2+ pitting edema equal bilaterally) Other physical findings edematous scrotum Results/Procedures Lab Laboratory Tests 11/06/21 23:03: Glucometer 85 11/07/21 03:45: White Blood Count 19.3H, Red Blood Count 2.84L, Hemoglobin 8.1L, Hematocrit 27L, Mean Corpuscular Volume 94, Mean Corpuscular Hemoglobin 29, Mean Corpuscular Hemoglobin Concent 30L, Red Cell Distribution Width 17.2H, Platelet Count 319, Mean Platelet Volume 11.5, Immature Granulocyte % (Auto) 3, Neutrophils (%) (Auto) 83H, Lymphocytes (%) (Auto) 4L, Monocytes (%) (Auto) 9, Eosinophils (%) (Auto) 0, Basophils (%) (Auto) 1, Neutrophils # (Auto) 16.1H, Lymphocytes # (Auto) 0.7L, Monocytes # (Auto) 1.8H, Eosinophils # (Auto) 0.1, Basophils # (Auto) 0.1, Immature Granulocyte # (Auto) 0.6H, Blood Gas Puncture Site ART LINE, Blood Gas Patient Temperature 36.7, Arterial Blood pH 7.29*L, Arterial Blood Partial Pressure CO2 62H, Arterial Blood Partial Pressure O2 53L, Arterial Blood HCO3 29H, Arterial Blood Total CO2 30.7, Arterial Blood Oxygen Saturation 85L, Arterial Blood Base Excess 2.7H, To Test ART LINE, Blood Gas Ventilator Setting YES, Blood Gas Inspired Oxygen 75%, Sodium Level 141, Potassium Level 3.5L, Chloride Level 104, Carbon Dioxide Level 24, Anion Gap 13, Blood Urea Nitrogen 18, Creatinine 1.09, Estimat Glomerular Filtration Rate 71, BUN/Creatinine Ratio 17, Glucose Level 81, Calcium Level 7.9L, Corrected Calcium 9.7, Phosphorus Level 3.9, Magnesium Level 1.9, Total Bilirubin 0.5, Aspartate Amino Transf (AST/SGOT) 21, Alanine Aminotransferase (ALT/SGPT) 12, Alkaline Phosphatase 87, Total Protein 5.1L, Albumin 1.8L 11/07/21 11:22: Glucometer 76 11/07/21 17:17: Glucometer 84 Microbiology 11/05/21 Blood Culture - Preliminary, Resulted No growth 10/25/21 Gram Stain - Final, Complete 10/25/21 Sputum Culture - Final, Complete Usual Mixed Pat Staphylococcus aureus Probable Klebsiella/Enterobact 10/14/21 Urine Culture - Final, Complete NO GROWTH Assessment/Plan Assessment/Plan (1) Acute respiratory failure due to COVID-19 Status: Acute Assessment & Plan: On admission- Continued dexamethasone. Remdesevir started per ICU. D dimer elevated, CTA negative for PE. Since that time had Actemra, completed remdesevir, had dexamethasone increased to 10 mg daily on day 5 of dexamethasone. Ultimately ended up requiring intubation on 10/18, after which had cardiac arrest. 1/3- worsening hypoxia in spite of ventilatory support, requiring 100% FiO2 and increasing PEEP, appreciate [facility]anda ICU recommendations. Discussed with patient's brother, for now they are continuing aggressive care, Surgery notified of need for trach and PEG. 1/- Unfortunately has continued to worsen, continuing to increase PEEP and he has not improved, family wants to continue aggressive care at this time. 1- PEEP up to 16 and FiO2 remains at 100%, still having episodes of hypoxia, per family after more discussion, holding off on PEG and trach, but continuing aggressive care. 11/02- trying to diurese slightly and wean paralysis, discussed status with mother. 11/05: Intubated and Sedated, Having cuff leaks, possible trachea erosion, eICU managing 11/06: Intubated and Sedated, unable to tolerate off paralytics 11/07: FiO2 creeping up, unable to titrate, very poor prognosis (2) Pneumonia due to COVID-19 virus Status: Acute (3) Hypertension Status: Chronic Assessment & Plan: 11/05: Continue to monitor, on pressers (4) Liver mass, right lobe Status: Acute Assessment & Plan: Seen incidentally on chest CT, needs non-urgent CT liver protocol for follow up. (5) Deep vein thrombosis Status: Acute Assessment & Plan: Right peroneal, left femoral into calf veins, started on treatment dose enoxaparin 10/11, now on apixaban, may need transitioned back to enoxaparin a few days prior to trach/PEG if those are to occcur. Qualifiers: (6) Cardiorespiratory arrest Status: Acute Assessment & Plan: s/p cardiac arrest on 10/18 with multiple rounds of chest compression and ROSC x 2, after intubation. (7) Paroxysmal atrial fibrillation Status: Acute Assessment & Plan: 10/29/21 No further episodes since cardioversion, thought to be related to his arrest. Appreciate Cardiology recommendations, decreasing amiodarone today (weaning anyway, but decreasing further with some possible dropped beats) (8) Septic shock Status: Resolved (9) GI bleed Status: Acute Assessment & Plan: 11/06: Hgb trending down, been on anticoagulation for A fib and DVT, started on PPI gtts today (10) Scrotal swelling Status: Acute Assessment & Plan: 11/06: Elevate scrotum as tolerated ADARSH CLARK MD Nov 07, 2021 20:18
[2021-11-07] MEDS: traZODone 50 MG (DESYREL) TAB PO SCH (21:04)
[2021-11-07] MEDS: traZODone 100 MG (DESYREL) TAB PO SCH (21:04)
[2021-11-07] MEDS: AtorvaSTATin TABLET 10 MG TABLET PO SCH (21:04)
[2021-11-08] VITALS (29 sets, daily range): BP systolic 91–112; BP diastolic 47–69
[2021-11-08] MEDS: RT-ALBUTEROL HFA 8.5 GM INHALER IH SCH ×3 (02:42→18:49)
[2021-11-08] MEDS: PROPOFOL DRIP (ICU) 100 ML IV SCH ×3 (02:57→16:59)
[2021-11-08] MEDS: CISATRACURIUM DRIP 250 ML IV SCH ×6 (03:50→22:44)
[2021-11-08 04:06] LABS: BASOPHILS # (AUTO) 0.2 10^3/uL (0.0-0.1); BASOPHILS % (AUTO) 1 % (0-10); EOSINOPHILS # (AUTO) 0.1 10^3/uL (0.0-0.3); EOSINOPHILS % (AUTO) 1 % (0-10); HEMATOCRIT 29 % (40-54); HEMOGLOBIN 8.5 g/dL (13.3-17.7); LYMPHOCYTES # (AUTO) 0.8 10^3/uL (1.0-4.0); LYMPHOCYTES % (AUTO) 3 % (12-44); MEAN CORPUSCULAR HEMOGLOBIN 28 pg (25-34); MEAN CORPUSCULAR HGB CONC 30 g/dL (32-36); MEAN CORPUSCULAR VOLUME 95 fL (80-99); MEAN PLATELET VOLUME 11.3 fL (9.0-12.2); MONOCYTES # (AUTO) 2.2 10^3/uL (0.0-1.0); MONOCYTES % (AUTO) 10 % (0-12); NEUTROPHILS # (AUTO) 17.7 10^3/uL (1.8-7.8); NEUTROPHILS % (AUTO) 79 % (42-75); PLATELET COUNT 347 10^3/uL (130-400); WHITE BLOOD COUNT 22.5 10^3/uL (4.3-11.0)
[2021-11-08 04:14] LABS: ALBUMIN 1.8 GM/DL (3.2-4.5); POTASSIUM 3.6 MMOL/L (3.6-5.0)
[2021-11-08 04:16] LABS: CALCIUM 8.1 MG/DL (8.5-10.1)
[2021-11-08 04:17] LABS: TOTAL PROTEIN 5.3 GM/DL (6.4-8.2)
[2021-11-08 04:19] LABS: BILIRUBIN,TOTAL 0.4 MG/DL (0.1-1.0)
[2021-11-08] MEDS: KCL 20 MEQ TAB (K-DUR) PO SCH (04:19)
[2021-11-08] MEDS: POTASSIUM CL 10MEQ/50ML IVPB 50 ML IV SCH (04:19)
[2021-11-08 04:20] LABS: PHOSPHORUS 4.4 MG/DL (2.3-4.7)
[2021-11-08 04:21] LABS: CREATININE SERUM 1.28 MG/DL (0.60-1.30)
[2021-11-08 04:23] LABS: MAGNESIUM 2.1 MG/DL (1.6-2.4)
[2021-11-08] MEDS: MAGNESIUM 1 GM/100 ML IVPB 100 ML IV SCH (04:25)
[2021-11-08] MEDS ORDERED: POTASSIUM CL 10MEQ/50ML IVPB 50 ML IV ONE ×2 (05:00→06:00)
[2021-11-08] MEDS: METOCLOPRAMIDE INJ 10 MG/2 ML (REGLAN) IVP SCH ×3 (05:29→17:00)
[2021-11-08] MEDS: MIDAZOLAM DRIP PRE-MIX 100 ML IV SCH ×3 (05:31→23:12)
[2021-11-08] MEDS: inSUlin ASPART (NovoLOG) 1 UNIT/0.01 ML (CHARGE PER UNIT) SQ SCH ×3 (05:35→18:48)
--- NOTE | 2021-11-08 07:39 | Diagnostic Imaging Report ---
INDICATION: ARDS. Respiratory failure. COMPARISON: 11/06/2021 FINDINGS: Single frontal radiograph view of the chest was obtained and again demonstrates indwelling endotracheal tube with tip at the clavicular heads. Gastric tube is also seen with tip likely in the stomach. Right sided large bore chest tube is also in stable position. Lungs show low inspiratory volumes with persistent diffuse scattered patchy and confluent infiltrate. There has been interval progression, particularly within the left upper lung when compared to prior exam. No large pneumothorax is seen. Small effusions may be obscured. Cardiac silhouette is also heavily obscured. IMPRESSION: 1. Interval progression of bilateral diffuse infiltrates. 2. Lines and tubes as above. No pneumothorax. Dictated by: Dictated on workstation # [id number]
[2021-11-08] MEDS: BUMETANIDE 1 MG/4 ML (BUMEX) VIAL IV SCH (08:32)
[2021-11-08] MEDS: ANIDULAFUNGIN INJECTION 100 MG in NS (IVPB) 100 ML IV SCH (08:35)
[2021-11-08] MEDS: DexMEDEtomidine 250 ML DRIP 250 ML IV SCH ×2 (08:37→16:57)
[2021-11-08] MEDS: fentaNYL DRIP PRE-MIX 250 ML IV SCH ×4 (08:44→16:59)
[2021-11-08] MEDS: PANTOPRAZOLE INJECTION 200 MG in NS (IVPB) 100 ML IV SCH (09:00)
[2021-11-08] MEDS: PANTOPRAZOLE 40 MG (PROTONIX) VIAL IV SCH (09:31)
[2021-11-08] MEDS: MIDODRINE 10 MG (PROAMATINE) TAB PO SCH ×3 (09:31→21:00)
[2021-11-08] MEDS: ACYCLOVIR 400 MG TABLET (ZOVIRAX) PO SCH ×2 (09:31→18:48)
[2021-11-08] MEDS: AMIODARONE 200 MG (CORDARONE) TAB PO SCH (09:31)
[2021-11-08] MEDS: LIDOCAINE 4% (SALONPAS) PATCH TOP SCH (09:32)
--- NOTE | 2021-11-08 11:06 | Cardiology Progress Note ---
Progress Note-Cardiology Events since last exam Date Seen by Provider: Nov 08, 2021 Time Seen by Provider: 11:04 Events since last exam I am following him due to atrial fibrillation. He remains in the intensive care unit intubated and sedated. His PEEP is at 14 with an FiO2 of 100%. He is now back on norepinephrine infusion and this is nearly maxed out today. He had previously been off norepinephrine for a few hours on 11/06. I started him on midodrine earlier this week and then increase the dose but now it appears he has high residuals coming from his gastric tube and may not be absorbing the medica tion. The family is now requesting he have a tracheostomy and PEG tube placed. I did not see the patient due to his COVID status. I did speak with his nurse of today. Certain portions of this document may have been dictated utilizing voice recognition technology. Inherent to this technology, typographical and grammatical errors may exist. As much as I am diligent to identify and correct these mistakes, some errors may remain in the document. Vitals Last set of Vitals Signs Vital Signs 11/08/21 11/08/21 11/08/21 16:00 17:00 18:00 Temp 36.0 Pulse 102 Resp 30 B/P (MAP) 106/61 (76) Pulse Ox 98 O2 Delivery Mechanical Ventilator O2 Flow Rate 90.00 FiO2 100 Labs Labs Laboratory Tests 11/08/21 03:57 Exam Vital Signs Vital Signs Date Time Temp Pulse Resp B/P (MAP) Pulse Ox O2 Delivery O2 Flow Rate FiO2 11/08/21 18:00 102 30 106/61 (76) 98 Mechanical Ventilator 90.00 11/08/21 17:00 100 11/08/21 16:00 36.0 Physical Exam I did not examine the patient due to his COVID status. Labs Laboratory Tests Test 11/07/21 23:37 11/08/21 03:57 11/08/21 11:27 11/08/21 17:40 Range/Units Glucometer 73 71 65 L 70-110 MG/DL White Blood Count 22.5 H 4.3-11.0 10^3/uL Red Blood Count 2.99 L 4.30-5.52 10^6/uL Hemoglobin 8.5 L 13.3-17.7 g/dL Hematocrit 29 L 40-54 % Mean Corpuscular Volume 95 80-99 fL Mean Corpuscular Hemoglobin 28 25-34 pg Mean Corpuscular Hemoglobin Concent 30 L 32-36 g/dL Red Cell Distribution Width 17.3 H 10.0-14.5 % Platelet Count 347 130-400 10^3/uL Mean Platelet Volume 11.3 9.0-12.2 fL Immature Granulocyte % (Auto) 7 % Neutrophils (%) (Auto) 79 H 42-75 % Lymphocytes (%) (Auto) 3 L 12-44 % Monocytes (%) (Auto) 10 0-12 % Eosinophils (%) (Auto) 1 0-10 % Basophils (%) (Auto) 1 0-10 % Neutrophils # (Auto) 17.7 H 1.8-7.8 10^3/uL Lymphocytes # (Auto) 0.8 L 1.0-4.0 10^3/uL Monocytes # (Auto) 2.2 H 0.0-1.0 10^3/uL Eosinophils # (Auto) 0.1 0.0-0.3 10^3/uL Basophils # (Auto) 0.2 H 0.0-0.1 10^3/uL Immature Granulocyte # (Auto) 1.6 H 0.0-0.1 10^3/uL Sodium Level 142 135-145 MMOL/L Potassium Level 3.6 3.6-5.0 MMOL/L Chloride Level 105 98-107 MMOL/L Carbon Dioxide Level 22 21-32 MMOL/L Anion Gap 15 H 5-14 MMOL/L Blood Urea Nitrogen 20 H 7-18 MG/DL Creatinine 1.28 0.60-1.30 MG/DL Estimat Glomerular Filtration Rate 59 BUN/Creatinine Ratio 16 Glucose Level 76 70-105 MG/DL Calcium Level 8.1 L 8.5-10.1 MG/DL Corrected Calcium 9.9 8.5-10.1 MG/DL Phosphorus Level 4.4 2.3-4.7 MG/DL Magnesium Level 2.1 1.6-2.4 MG/DL Total Bilirubin 0.4 0.1-1.0 MG/DL Aspartate Amino Transf (AST/SGOT) 17 5-34 U/L Alanine Aminotransferase (ALT/SGPT) 6 0-55 U/L Alkaline Phosphatase 100 40-136 U/L Total Protein 5.3 L 6.4-8.2 GM/DL Albumin 1.8 L 3.2-4.5 GM/DL Triglycerides Level 384 H <150 MG/DL Diagnosis/Problems Diagnosis/Problems (1) Paroxysmal atrial fibrillation Status: Acute Assessment & Plan: This was a new finding on this patient during this admission. This was most most likely brought on by the resuscitative efforts during his cardiopulmonary arrest and possibly Covid infection. Since his card ioversion on 10/18, he remains in sinus rhythm and sinus tachycardia on oral amiodarone. I decreased the dose of amiodarone on 10/26/2021. I changed this to 100 mg once daily on 11/05. Since the atrial fibrillation was most likely brought on by his cardiopulmonary arrest and lasted less than 48 hours, he does not necessarily need anticoagulation for the atrial fibrillation. However, he was on apixaban due to left lower extremity deep venous thrombosis discovered during this admission. (2) Septic shock Status: Resolved Assessment & Plan: Most likely related to Covid pneumonia. As above, we will continue norepinephrine infusion and wean as tolerated. I started him on low- dose oral midodrine on 11/05 to see if this may help get him off the norepinephrine infusion. I increased the dose on 11/06 and his blood pressures had improved but are worse again today. Prognosis is guarded. Resolution Date/Time: 11/02/21 @ 21:57 (3) Primary hypertension Assessment & Plan: He has been intermittently on intravenous norepinephrine due to recurrent shock. All antihypertensive medications are on hold until and if he comes off vasopressor medication. I removed all of his outpatient antihypertensive medication from the inpatient list. (4) Mixed hyperlipidemia Assessment & Plan: Continue statin medication. (5) Acute respiratory failure due to COVID-19 Status: Acute Assessment & Plan: The hospitalist and eICU are managing the ventilator. He remains on high PEEP levels and high concentrations of oxygen. Prognosis remains guarded. (6) Deep vein thrombosis of left lower extremity Assessment & Plan: Possibly related to Covid infection. Apixiban will need to be held if he undergoes a tracheostomy and/or PEG. KAIT MORENO JR, MD Nov 08, 2021 11:06
[2021-11-08] MEDS: NOREPINEPHRINE 8 MG/250 ML 250 ML IV SCH ×4 (11:33→23:33)
[2021-11-08] MEDS: AZTREONAM INJECTION 2,000 MG in NS (IVPB) 100 ML IV SCH (13:39)
--- NOTE | 2021-11-08 13:52 | Tele-ICU Progress Note ---
Subjective Date Seen by a Provider: Nov 08, 2021 Time Seen by a Provider: 13:52 Sepsis Event Evaluation Height, Weight, BMI Height: 5'10.00" Weight: 182lbs. 0.0oz. 82.777075pc; 25.79 BMI Method: Exam Exam Patient acknowledged, consented, and participated in this virtual visit which was conducted using real time audio/video Vital Signs Date Time Temp Pulse Resp B/P (MAP) Pulse Ox O2 Delivery O2 Flow Rate FiO2 11/08/21 13:39 101 11/08/21 13:00 102 30 98/57 (71) 88 Mechanical Ventilator 90.00 11/08/21 12:31 102 11/08/21 12:00 102 30 102/58 (73) 88 Mechanical Ventilator 90.00 11/08/21 11:51 36.0 11/08/21 11:33 91 82/48 11/08/21 11:02 87 Mechanical Ventilator 100 11/08/21 11:00 101 30 99/57 (71) 87 Mechanical Ventilator 90.00 11/08/21 10:00 101 30 105/58 (74) 88 Mechanical Ventilator 90.00 11/08/21 09:25 101 30 88 100 11/08/21 09:00 102 29 107/58 (74) 88 Mechanical Ventilator 90.00 11/08/21 08:37 101 108/58 11/08/21 08:30 88 Mechanical Ventilator 100 11/08/21 08:00 36.5 11/08/21 08:00 103 30 110/58 (75) 89 Mechanical Ventilator 90.00 11/08/21 07:17 107 30 88 100 11/08/21 07:00 102 30 109/56 (73) 84 Mechanical Ventilator 90.00 11/08/21 07:00 105 11/08/21 06:00 98 30 105/55 (72) 87 Mechanical Ventilator 90.00 11/08/21 05:31 93 24 107/51 11/08/21 05:00 93 30 96/51 (66) 87 Mechanical Ventilator 90.00 11/08/21 04:00 92 30 107/54 (71) 88 Mechanical Ventilator 90.00 11/08/21 04:00 Mechanical Ventilator 80 11/08/21 03:53 36.2 Mechanical Ventilator 90.00 11/08/21 03:00 96 30 104/53 (70) 88 Mechanical Ventilator 80.00 11/08/21 02:57 96 103/52 11/08/21 02:42 97 30 91 90 11/08/21 02:00 97 30 112/57 (75) 89 Mechanical Ventilator 80.00 11/08/21 01:00 90 11/08/21 01:00 90 30 107/50 (69) 91 Mechanical Ventilator 80.00 11/08/21 00:00 36.5 Mechanical Ventilator 80.00 11/08/21 00:00 Mechanical Ventilator 80 11/08/21 00:00 85 30 99/47 (64) 90 Mechanical Ventilator 80.00 11/07/21 23:39 93 109/52 11/07/21 23:38 93 109/52 11/07/21 23:00 92 30 111/53 (72) 92 Mechanical Ventilator 80.00 11/07/21 22:00 79 29 81/49 (60) 90 Mechanical Ventilator 80.00 11/07/21 21:17 78 30 90 90 11/07/21 21:00 76 30 97/55 (69) 91 Mechanical Ventilator 80.00 11/07/21 20:00 Mechanical Ventilator 80 11/07/21 20:00 78 30 99/56 (70) 91 Mechanical Ventilator 80.00 11/07/21 19:51 36.3 11/07/21 19:00 79 30 113/61 (78) 92 Mechanical Ventilator 80.00 11/07/21 19:00 79 11/07/21 18:57 75 30 130/66 11/07/21 18:29 68 30 90 80 11/07/21 18:00 78 30 99/57 (71) 89 Mechanical Ventilator 80.00 11/07/21 17:00 78 30 103/58 (73) 90 Mechanical Ventilator 80.00 11/07/21 16:12 36.0 11/07/21 16:00 Mechanical Ventilator 80 11/07/21 16:00 80 30 106/58 (74) 90 Mechanical Ventilator 80.00 11/07/21 15:00 79 30 108/59 (75) 90 Mechanical Ventilator 80.00 11/07/21 14:23 75 30 93 80 11/07/21 14:03 74 116/62 11/07/21 14:01 73 107/60 11/07/21 14:00 72 30 96/55 (69) 95 Mechanical Ventilator 80.00 I & O 11/08/21 07:00 Intake Total 230 ml Output Total 1523 ml Balance -1293 ml Height & Weight Height: 5'10.00" Weight: 182lbs. 0.0oz. 82.190282ke; 25.79 BMI Method: General Appearance: Chronically ill, Other (Sedated and intubated. ) HEENT: Other (OG and ET tube) Neck: Supple Respiratory: Decreased Breath Sounds, Other (coarse breath sounds all lung linda, on ventilator TV 350 RR 30 Peep 13 FiO2 100%. Tachypneic due to vent settings.) Cardiovascular: Regular Rate, Rhythm, Other (BL hand and foot edema. ) Capillary Refill: Less Than 3 Seconds Peripheral Pulses: 1+ Dorsalis Pedis (R), 1+ Left Dors-Pedis (L) Gastrointestinal: normal bowel sounds, non tender, soft Extremity: Normal Capillary Refill, Pedal Edema, Other (scrotal swelling without overlying cellulitis. Roberts catheter in place, urine appears a light yellow color in the roberts. ) Neurologic/Psychiatric: Other (vent/sedated) Skin: No Diaphoresis; Pallor (faint) Lymphatic: No Adenopathy Results Lab Laboratory Tests 11/07/21 03:45 11/08/21 03:57 Assessment/Plan Assessment/Plan (Tele-ICU Physician , Progress Note ) Available chart/ vitals / labs / Images reviewed Video assessment done using teleICU camera, rest of exam as per RN Discussed with RN , EXAM PER RN Events overnight : Afebrile I/O = even Drips: Pressors: LEVO Sedation gtt: ( RASS precedex 1.3, fent 300 anyl prop 50 versed 6 paralized ) VENT SETTINGS and ABG reviewed Not candidate for SBT today REVIEWED Cardiovascular Stability / Sedation Score / FI02/PEEP / ABG / CXR Consultants: Hospital course: (10/08) 77 y/o female admitted for COVID+, transfer from other facility - , VT 20L 70% 10/09 changed to BIPAP 10/10 Bipap /8 100% _ precedex 0.4 10/11 - VT 35/80% prn bipap , precedex 0.4 - LEFT LE DVT 10/14 - VT 60L 75% , , BIPAP 60%- precedex 1.0, STARTED ZOSYN 12/20 - VT 40 100% , worsenign cxr on right , worsenign right sided pain 10/18 - ETT< card/pulm arrest - ROSC , PTX , chest tube on LEFT 10/18 - a fin RVR - cardioverted 10/19 - peep 18 60%, 10/20 - Thoravent on ADDITION to chest tube - both with leak, LEVO 10/21 - fio2 40% peep 5, follows commands 10/23 - fio2 75% peep 5 - BOTH CHEST TUBE sWITHOUT leak , tidal variations and minimal fluid drainage - fio2 70 % + 5 - CT CHEST with small PTX and large infitrate RLL 10/25- fio2 60 % +5 stareted Merrem and eraxis 10/30 - attempts to probe - desated more in probe position in 80 > 2 h 10/31 - PARALIZED peep 16 95% PAP 50 , 11/01 - initiated gentle DIURESIS , bumex 0.5 qd 11/02 - down to 70% , trying off paralizIS 11/05 = not tolerates TF - distended abd , coffee-ground in NG , Fio2 60% peep 14 , mididrin added 11/06- decreased HB - stating PPI GTT , with diuresis FIO2to 55% peep 14 DO NOT TOLERATED OFF PARALITICS , OFF AC 08/28= 80% FiO2 with a PEEP of 12, US LE - stable DVT 11/08- 75 % FiO2 +15 negative balance, SEVERE DESAT with moving to get CXT - NOT recovering 2 h latter with 100% A/P AHRF / ARDS due to severe COVID19 ( CTA neg for pe 10/07 - in other facility , reportedly - did not see report personally - INTUBATED - 10/18 - AC 26 - 375 - Fio2 55% peep 14 PAP 40 with diuresis FIO2to 55% peep 14 NOT TOLERATED OFF PARALITICS - SEVERE DESAT with moving to get CXT - NOT recovering 2 h latter with 100% STOP diuresis 11/08 card/pulm arrest -10/18 ROSC , PTX - CTH negative 10/19 -was following commands as per [place] inspector post arrest - PARALIZED now Shock - levo increases 11/08 -cortisol 11/02=14 - midodrin 11/05 10 tid - nor absorbing GEORGE -mild , but will hold diuresis given worsenign Cr/GFR , albumin x2 - follow closely ID #1. RLL PNA - started on Zosyn 10/14 - >24 - resumed on 10/19 -> 10/24 - CT 10/06. 10/19, 1229 -with significant infiltrate on RLL - 10/25 sputum cx, MSSA, Kleb, Enterobac , Merrem a1 -> 11/01 -cont eraxis - consider CT again - ? dveloping necrosis WILL START AZTREONAM AND LINEZOLID empirifcally on 11/08 #2. - repeated cx line 11/05 - neg AKJH-Ewpejzftono-1/COVID-19 PNA ( Symptom onset unknown now DX unvaccinted --Dexamethasone - chanhged to 10 qd with wheexzng 10/10- >10/20 - OFF STEROIDS NOW -Hypercoagulable state - DVT and PE- ON HOLD NOW Pneumomediastinum on ct 10/06- 10/18 - PTX , RIGHT - chest tube in place clummped ( Thoravent on ADDITION to chest tube 10/20 - removed now a fib RVR - cardioverted - 10/18 - in sinus , s/p amio bolus , on PO amio now - ECHO 10/12 - EF and RVSP WNL Left lower extremity DVT dx 10/12 - small PE on CT 10/19 - fill dose lovenox - >eliquis 10/21 --> STOPPED 11/05 with suspected GIB - FOLLOW TO RESUME AC KENIA - 11/06- survelance US ( off AC with GIB )-residual thrombus in the left peroneal vein Poor tolerance of TF - starting reglan 11/02 , KUB nonspecific -TPN to start -check lactate Elev TGL 500 11/05 - decrease propofol if possible , amylase 11/06 WNL - follow Scrotal edema with general VO - follow as per bedside 11/08 DISCUSSED WITH BROTHER ( WHO IS MD - HOSPITALIST IN OTHER STATE ) Lines : 10/18 - crntal line Central Line Necessity Reviewed) Roberts: 10/08 OG: Nutrition: TF on hold Analgesia: Anxiety/ delirium = VTE Prophylaxis: on hold Stress Ulcer Prophylaxis: ppi gtt Plans in collaboration with bedside consultants and IM MDs. Discussed with RN to reach out if any questions or concerns A total of 40 minutes of critical care time was devoted to this patient today, required to treat and/or prevent further deterioration of critical care condition ( as above ) . JOHN CROW MD Nov 08, 2021 13:52
[2021-11-08] MEDS ORDERED: TPN IV SCH (14:30)
--- NOTE | 2021-11-08 15:35 | Progress Note-Pre Operative ---
Pre-Operative Progress Note H&P Reviewed The H&P was reviewed, patient examined and no changes noted. Date Seen by Provider: Nov 08, 2021 Time Seen by Provider: 15:30 Date H&P Reviewed: Oct 18, 2021 Time H&P Reviewed: 15:30 Pre-Operative Diagnosis: severe covid ARDS KAVON WOLFE MD Nov 08, 2021 15:35
--- NOTE | 2021-11-08 15:40 | Progress Note ---
Subjective Date Seen by a Provider: Nov 08, 2021 Time Seen by a Provider: 15:30 Subjective/Events-last exam severe covid ARDS. prognosis extremely poor however family member wants to continue full code as well as transfer for ECMO. Objective Exam Vital Signs Date Time Temp Pulse Resp B/P (MAP) Pulse Ox O2 Delivery O2 Flow Rate FiO2 11/08/21 15:00 103 30 99/57 (71) 88 Mechanical Ventilator 90.00 11/08/21 14:35 17 30 89 100 11/08/21 14:00 101 30 102/58 (73) 88 Mechanical Ventilator 90.00 11/08/21 13:39 101 11/08/21 13:00 102 30 98/57 (71) 88 Mechanical Ventilator 90.00 11/08/21 12:31 102 11/08/21 12:00 102 30 102/58 (73) 88 Mechanical Ventilator 90.00 11/08/21 11:51 36.0 11/08/21 11:33 91 82/48 11/08/21 11:02 87 Mechanical Ventilator 100 11/08/21 11:00 101 30 99/57 (71) 87 Mechanical Ventilator 90.00 11/08/21 10:00 101 30 105/58 (74) 88 Mechanical Ventilator 90.00 11/08/21 09:25 101 30 88 100 11/08/21 09:00 102 29 107/58 (74) 88 Mechanical Ventilator 90.00 11/08/21 08:37 101 108/58 11/08/21 08:30 88 Mechanical Ventilator 100 11/08/21 08:00 36.5 11/08/21 08:00 103 30 110/58 (75) 89 Mechanical Ventilator 90.00 11/08/21 07:17 107 30 88 100 11/08/21 07:00 102 30 109/56 (73) 84 Mechanical Ventilator 90.00 11/08/21 07:00 105 11/08/21 06:00 98 30 105/55 (72) 87 Mechanical Ventilator 90.00 11/08/21 05:31 93 24 107/51 11/08/21 05:00 93 30 96/51 (66) 87 Mechanical Ventilator 90.00 11/08/21 04:00 92 30 107/54 (71) 88 Mechanical Ventilator 90.00 11/08/21 04:00 Mechanical Ventilator 80 11/08/21 03:53 36.2 Mechanical Ventilator 90.00 11/08/21 03:00 96 30 104/53 (70) 88 Mechanical Ventilator 80.00 11/08/21 02:57 96 103/52 11/08/21 02:42 97 30 91 90 11/08/21 02:00 97 30 112/57 (75) 89 Mechanical Ventilator 80.00 11/08/21 01:00 90 11/08/21 01:00 90 30 107/50 (69) 91 Mechanical Ventilator 80.00 11/08/21 00:00 36.5 Mechanical Ventilator 80.00 11/08/21 00:00 Mechanical Ventilator 80 11/08/21 00:00 85 30 99/47 (64) 90 Mechanical Ventilator 80.00 11/07/21 23:39 93 109/52 11/07/21 23:38 93 109/52 11/07/21 23:00 92 30 111/53 (72) 92 Mechanical Ventilator 80.00 11/07/21 22:00 79 29 81/49 (60) 90 Mechanical Ventilator 80.00 11/07/21 21:17 78 30 90 90 11/07/21 21:00 76 30 97/55 (69) 91 Mechanical Ventilator 80.00 11/07/21 20:00 Mechanical Ventilator 80 11/07/21 20:00 78 30 99/56 (70) 91 Mechanical Ventilator 80.00 11/07/21 19:51 36.3 11/07/21 19:00 79 30 113/61 (78) 92 Mechanical Ventilator 80.00 11/07/21 19:00 79 11/07/21 18:57 75 30 130/66 11/07/21 18:29 68 30 90 80 11/07/21 18:00 78 30 99/57 (71) 89 Mechanical Ventilator 80.00 11/07/21 17:00 78 30 103/58 (73) 90 Mechanical Ventilator 80.00 11/07/21 16:12 36.0 11/07/21 16:00 Mechanical Ventilator 80 11/07/21 16:00 80 30 106/58 (74) 90 Mechanical Ventilator 80.00 I & O 11/08/21 07:00 Intake Total 230 ml Output Total 1523 ml Balance -1293 ml Capillary Refill : Less Than 3 Seconds General Appearance: No Apparent Distress HEENT: TMs Normal Neck: Full Range of Motion Respiratory: Decreased Breath Sounds, Rhonci, Wheezing Cardiovascular: Regular Rate, Rhythm Gastrointestinal: normal bowel sounds, non tender, soft Extremity: Slow Capillary Refill Neurologic/Psychiatric: Other (on vent sedated) Skin: Normal Color Lymphatic: No Adenopathy Results Lab Laboratory Tests 11/07/21 17:17: Glucometer 84 11/07/21 23:37: Glucometer 73 11/08/21 03:57: White Blood Count 22.5H, Red Blood Count 2.99L, Hemoglobin 8.5L, Hematocrit 29L, Mean Corpuscular Volume 95, Mean Corpuscular Hemoglobin 28, Mean Corpuscular Hemoglobin Concent 30L, Red Cell Distribution Width 17.3H, Platelet Count 347, Mean Platelet Volume 11.3, Immature Granulocyte % (Auto) 7, Neutrophils (%) (Auto) 79H, Lymphocytes (%) (Auto) 3L, Monocytes (%) (Auto) 10, Eosinophils (%) (Auto) 1, Basophils (%) (Auto) 1, Neutrophils # (Auto) 17.7H, Lymphocytes # (Auto) 0.8L, Monocytes # (Auto) 2.2H, Eosinophils # (Auto) 0.1, Basophils # (Auto) 0.2H, Immature Granulocyte # (Auto) 1.6H, Sodium Level 142, Potassium Level 3.6, Chloride Level 105, Carbon Dioxide Level 22, Anion Gap 15H, Blood Urea Nitrogen 20H, Creatinine 1.28, Estimat Glomerular Filtration Rate 59, BUN/Creatinine Ratio 16, Glucose Level 76, Calcium Level 8.1L, Corrected Calcium 9.9, Phosphorus Level 4.4, Magnesium Level 2.1, Total Bilirubin 0.4, Aspartate Amino Transf (AST/SGOT) 17, Alanine Aminotransferase (ALT/SGPT) 6, Alkaline Phosphatase 100, Total Protein 5.3L, Albumin 1.8L, Triglycerides Level 384H 11/08/21 11:27: Glucometer 71 Microbiology 11/05/21 Blood Culture - Preliminary, Resulted No growth 10/25/21 Gram Stain - Final, Complete 10/25/21 Sputum Culture - Final, Complete Usual Mixed Pat Staphylococcus aureus Probable Klebsiella/Enterobact 10/14/21 Urine Culture - Final, Complete NO GROWTH Assessment/Plan Assessment/Plan Assess & Plan/Chief Complaint covid resp failure with cardiac arrest and right ptx s/p ct. poor prognosis and many surgical risks involved however family would like to proceed with trach and peg and transfer to ECMO center which is highly unavailable. family well aware of risks however patient still full code and would like to proceed with trach and PEG which we will schedule. KAVON WOLFE MD Nov 08, 2021 15:40
--- NOTE | 2021-11-08 16:09 | Progress Note ---
Standard Progress Note Progress Notes/Assess & Plan Date Seen by a Provider: Nov 08, 2021 Time Seen by a Provider: 16:00 Progress/Assessment & Plan patient hx/notes once again evaluated. now week 6 of ET intubation. 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 patient also desaturated into 70% range even with movements associated with a one view p-cxr. I feel taking him to the OR for tracheostomy and PEG at this point would cause definitive morbidity and mortality and will defer patients case to ethics committee. KAVON WOLFE MD Nov 08, 2021 16:09
[2021-11-08] MEDS: ALBUMIN 25% 25 GM/100 ML 50 ML IV SCH (16:58)
--- NOTE | 2021-11-08 20:36 | Diagnostic Imaging Report ---
INDICATION: Pneumothorax, chest tube. COMPARISON: 11/08/2021. EXAMINATION: Single view of the chest. FINDINGS: There is a new lucency in the right base compatible with new and/or increasing basilar pneumothorax. Infiltrates are stable. Support devices are in good position. IMPRESSION: New and/or increasing right basilar pneumothorax compared to the previous exam. Dictated by: Dictated on workstation # [id number]
[2021-11-08] MEDS: traZODone 100 MG (DESYREL) TAB PO SCH (21:00)
[2021-11-08] MEDS: AtorvaSTATin TABLET 10 MG TABLET PO SCH (21:00)
[2021-11-08] MEDS: traZODone 50 MG (DESYREL) TAB PO SCH (21:00)
--- NOTE | 2021-11-08 21:16 | Diagnostic Imaging Report ---
INDICATION: Chest tube placement. COMPARISON: 11/08/2021 at 8:14 p.m. EXAMINATION: Single view of the chest. FINDINGS: Increasing pneumothorax in the right base. The chest tube appears to be in the right apex in stable position. Additional support lines are unchanged. There are stable bilateral pulmonary infiltrates. IMPRESSION: Enlarging pneumothorax in the right base. Dictated by: Dictated on workstation # [id number]
--- NOTE | 2021-11-08 21:36 | Progress Note ---
Standard Progress Note Progress Notes/Assess & Plan Date Seen by a Provider: Nov 08, 2021 Time Seen by a Provider: 21:31 Final Diagnosis called for hypoxia and inability to return tidal volume, has old PMNTX on right with non functioning chest tube SpO2 when bagged but once placed vent SpO2 drops, new vent has been tried, advancing ET 2 cm has been tried, At this point suspect cuff is leaking and would re intubate either with tube exchanger or just re intubatingh, Both carry risk due to poor pulmonary reserve Also most recent CXR read as enlarging PMNTX, once ET secured, will try to get a chest tube placed LOWELL CONNOR MD Nov 08, 2021 21:36
--- NOTE | 2021-11-08 21:46 | Progress Note ---
Subjective Subjective/Events-last exam Patient intubated and sedated. Spoke with [facility] this AM and they would like to try and transfer patient for possible ECMO. Patient has not yet had Trach or PEG and is extremely high risk for these procedures given his hypoxia with any movement. Discussed with Ad[facility] that there are no available ICU beds or beds available for ECMO but will contact mission control. Spoke with Dr Mathews regarding procedures and he is going to speak directly with the family regarding the risk as we do not think patient will tolerate procedures as well as transport. Family would still like to try and proceed with transfer. Review of Systems Unable to obtain due to intubation and sedation Objective Exam Last Set of Vital Signs Vital Signs Date Time Temp Pulse Resp B/P (MAP) Pulse Ox O2 Delivery O2 Flow Rate FiO2 11/08/21 19:00 103 11/08/21 18:57 30 88 100 11/08/21 18:00 106/61 (76) Mechanical Ventilator 90.00 11/08/21 16:00 36.0 Capillary Refill : Less Than 3 Seconds I&O Intake and Output 11/08/21 00:00 Intake Total 180 ml Output Total 1448 ml Balance -1268 ml Other 180 ml Output Urine Total 948 ml Gastric Drainage Total 500 ml Chest Tube Drainage Total 0 ml General: Other (Intubated and sedated) Lungs: Other (minimal air movement) Heart: Regular Rate Abdomen: Other (moderate distention) Extremities: Other (2-3+ edema bilateral extremities) Results/Procedures Lab Laboratory Tests 11/07/21 23:37: Glucometer 73 11/08/21 03:57: White Blood Count 22.5H, Red Blood Count 2.99L, Hemoglobin 8.5L, Hematocrit 29L, Mean Corpuscular Volume 95, Mean Corpuscular Hemoglobin 28, Mean Corpuscular Hemoglobin Concent 30L, Red Cell Distribution Width 17.3H, Platelet Count 347, Mean Platelet Volume 11.3, Immature Granulocyte % (Auto) 7, Neutrophils (%) (Auto) 79H, Lymphocytes (%) (Auto) 3L, Monocytes (%) (Auto) 10, Eosinophils (%) (Auto) 1, Basophils (%) (Auto) 1, Neutrophils # (Auto) 17.7H, Lymphocytes # (Auto) 0.8L, Monocytes # (Auto) 2.2H, Eosinophils # (Auto) 0.1, Basophils # (Auto) 0.2H, Immature Granulocyte # (Auto) 1.6H, Sodium Level 142, Potassium Level 3.6, Chloride Level 105, Carbon Dioxide Level 22, Anion Gap 15H, Blood Urea Nitrogen 20H, Creatinine 1.28, Estimat Glomerular Filtration Rate 59, BUN/Creatinine Ratio 16, Glucose Level 76, Calcium Level 8.1L, Corrected Calcium 9.9, Phosphorus Level 4.4, Magnesium Level 2.1, Total Bilirubin 0.4, Aspartate Amino Transf (AST/SGOT) 17, Alanine Aminotransferase (ALT/SGPT) 6, Alkaline Phosphatase 100, Total Protein 5.3L, Albumin 1.8L, Triglycerides Level 384H 11/08/21 11:27: Glucometer 71 11/08/21 17:40: Glucometer 65L Microbiology 11/05/21 Blood Culture - Preliminary, Resulted No growth 10/25/21 Gram Stain - Final, Complete 10/25/21 Sputum Culture - Final, Complete Usual Mixed Pat Staphylococcus aureus Probable Klebsiella/Enterobact 10/14/21 Urine Culture - Final, Complete NO GROWTH Assessment/Plan Assessment/Plan (1) Acute respiratory failure due to COVID-19 Status: Acute Assessment & Plan: On admission- Continued dexamethasone. Remdesevir started per ICU. D dimer elevated, CTA negative for PE. Since that time had Actemra, completed remdesevir, had dexamethasone increased to 10 mg daily on day 5 of dexamethasone. Ultimately ended up requiring intubation on 10/18, after which had cardiac arrest. 1/3- worsening hypoxia in spite of ventilatory support, requiring 100% FiO2 and increasing PEEP, appreciate Maria Fernanda ICU recommendations. Discussed with patient's brother, for now they are continuing aggressive care, Surgery notified of need for trach and PEG. 1/- Unfortunately has continued to worsen, continuing to increase PEEP and he has not improved, family wants to continue aggressive care at this time. 1/- PEEP up to 16 and FiO2 remains at 100%, still having episodes of hypoxia, per family after more discussion, holding off on PEG and trach, but continuing aggressive care. 11/02- trying to diurese slightly and wean paralysis, discussed status with mother. 11/05: Intubated and Sedated, Having cuff leaks, possible trachea erosion, eICU managing 11/06: Intubated and Sedated, unable to tolerate off paralytics 11/07: FiO2 creeping up, unable to titrate, very poor prognosis 11/08: Spoke with family and patient was placed on mission control for possible transfer, discussed with family that he would not likely tolerate transfer or Trach/PEG given his fragility. Ethics committee consulted to make sure we have exhausted all options and patient has a grave prognosis (2) Pneumonia due to COVID-19 virus Status: Acute (3) Hypertension Status: Chronic Assessment & Plan: 11/05: Continue to monitor, on pressers (4) Liver mass, right lobe Status: Acute Assessment & Plan: Seen incidentally on chest CT, needs non-urgent CT liver protocol for follow up. (5) Deep vein thrombosis Status: Acute Assessment & Plan: Right peroneal, left femoral into calf veins, started on treatment dose enoxaparin 10/11, now on apixaban, may need transitioned back to enoxaparin a few days prior to trach/PEG if those are to occcur. Qualifiers: (6) Cardiorespiratory arrest Status: Acute Assessment & Plan: s/p cardiac arrest on 10/18 with multiple rounds of chest compression and ROSC x 2, after intubation. (7) Paroxysmal atrial fibrillation Status: Acute Assessment & Plan: 10/29/21 No further episodes since cardioversion, thought to be related to his arrest. Appreciate Cardiology recommendations, decreasing amiodarone today (weaning anyway, but decreasing further with some possible dropped beats) (8) Septic shock Status: Resolved (9) GI bleed Status: Acute Assessment & Plan: 11/06: Hgb trending down, been on anticoagulation for A fib and DVT, started on PPI gtts today (10) Scrotal swelling Status: Acute Assessment & Plan: 11/06: Elevate scrotum as tolerated ADARSH CLARK MD Nov 08, 2021 21:46
[2021-11-09] VITALS (21 sets, daily range): BP systolic 68–120; BP diastolic 5–92
[2021-11-09 00:12] LABS: BASOPHILS # (AUTO) 0.4 10^3/uL (0.0-0.1); BASOPHILS % (AUTO) 1 % (0-10); EOSINOPHILS # (AUTO) 0.1 10^3/uL (0.0-0.3); EOSINOPHILS % (AUTO) 0 % (0-10); HEMATOCRIT 33 % (40-54); HEMOGLOBIN 9.7 g/dL (13.3-17.7); LYMPHOCYTES % (AUTO) 3 % (12-44); MEAN CORPUSCULAR HEMOGLOBIN 28 pg (25-34); MEAN CORPUSCULAR HGB CONC 29 g/dL (32-36); MEAN CORPUSCULAR VOLUME 97 fL (80-99); MEAN PLATELET VOLUME 11.3 fL (9.0-12.2); MONOCYTES # (AUTO) 3.1 10^3/uL (0.0-1.0); MONOCYTES % (AUTO) 10 % (0-12); NEUTROPHILS # (AUTO) 22.6 10^3/uL (1.8-7.8); NEUTROPHILS % (AUTO) 72 % (42-75); PLATELET COUNT 567 10^3/uL (130-400)
[2021-11-09] MEDS: METOCLOPRAMIDE INJ 10 MG/2 ML (REGLAN) IVP SCH ×3 (00:14→10:46)
[2021-11-09 00:22] LABS: INR 1.4 (0.8-1.4); PROTHROMBIN TIME PATIENT 17.9 SEC (12.2-14.7)
[2021-11-09 00:23] LABS: WHITE BLOOD COUNT 31.4 10^3/uL (4.3-11.0)
[2021-11-09] MEDS: ALBUMIN 25% 25 GM/100 ML 50 ML IV SCH (00:37)
[2021-11-09] MEDS: AZTREONAM INJECTION 2,000 MG in NS (IVPB) 100 ML IV SCH ×3 (00:38→13:03)
[2021-11-09] MEDS: PANTOPRAZOLE 40 MG (PROTONIX) VIAL IV SCH ×2 (00:38→08:21)
[2021-11-09] MEDS: LINEZOLID IVPB 300 ML IV SCH ×2 (00:40→08:22)
[2021-11-09] MEDS: inSUlin ASPART (NovoLOG) 1 UNIT/0.01 ML (CHARGE PER UNIT) SQ SCH ×3 (00:41→12:20)
[2021-11-09] MEDS: NOREPINEPHRINE 8 MG/250 ML 250 ML IV SCH ×7 (00:43→08:24)
[2021-11-09] MEDS: fentaNYL DRIP PRE-MIX 250 ML IV SCH ×4 (00:56→08:22)
[2021-11-09 01:18] LABS: ABG BASE EXCESS -6.2 MMOL/L (-2.5-2.5); ABG OXYGEN SATURATION 75 % (94-100); ABG PO2 50 MMHG (79-93); ABG TCO2 29.5 MMOL/L (21.0-31.0)
[2021-11-09] MEDS: DexMEDEtomidine 250 ML DRIP 250 ML IV SCH ×3 (01:33→13:16)
[2021-11-09] MEDS: CISATRACURIUM DRIP 250 ML IV SCH ×5 (01:33→14:07)
--- NOTE | 2021-11-09 01:44 | Tele-ICU Progress Note ---
Subjective Date Seen by a Provider: Nov 09, 2021 Time Seen by a Provider: 01:41 Subjective/Events-last exam Pneumothorax has been increasing, gen surg came in to put in Thoravent, some improvement, will lower PEEP to 10, now DNR, prognosis very poor Sepsis Event Evaluation Height, Weight, BMI Height: 5'10.00" Weight: 182lbs. 0.0oz. 82.663414wn; 25.79 BMI Method: Exam Exam Patient acknowledged, consented, and participated in this virtual visit which was conducted using real time audio/video Vital Signs Date Time Temp Pulse Resp B/P (MAP) Pulse Ox O2 Delivery O2 Flow Rate FiO2 11/09/21 01:33 132 129/70 11/09/21 00:43 132 129/70 11/09/21 00:00 128 24 117/65 (82) 80 Mechanical Ventilator 100.00 11/08/21 23:33 88/52 11/08/21 23:12 85/63 11/08/21 23:00 122 25 102/61 (75) 85 Mechanical Ventilator 100.00 11/08/21 22:44 36.6 11/08/21 22:00 123 24 91/54 (66) 84 Mechanical Ventilator 100.00 11/08/21 21:51 123 93/59 11/08/21 21:00 121 23 96/60 (72) 83 Mechanical Ventilator 100.00 11/08/21 20:00 102 30 97/56 (70) 85 Mechanical Ventilator 100.00 11/08/21 19:00 103 30 101/58 (72) 88 Mechanical Ventilator 100.00 11/08/21 19:00 103 11/08/21 18:57 104 30 88 100 11/08/21 18:00 102 30 106/61 (76) 98 Mechanical Ventilator 90.00 11/08/21 17:33 81/50 11/08/21 17:00 102 30 104/59 (74) 87 Mechanical Ventilator 90.00 11/08/21 17:00 86 Mechanical Ventilator 100 11/08/21 16:59 102 102/60 11/08/21 16:58 102 102/60 11/08/21 16:57 102 102/60 11/08/21 16:00 102 30 102/60 (74) 88 Mechanical Ventilator 90.00 11/08/21 16:00 36.0 11/08/21 15:00 103 30 99/57 (71) 88 Mechanical Ventilator 90.00 11/08/21 14:35 17 30 89 100 11/08/21 14:00 101 30 102/58 (73) 88 Mechanical Ventilator 90.00 11/08/21 13:39 101 11/08/21 13:00 102 30 98/57 (71) 88 Mechanical Ventilator 90.00 11/08/21 12:31 102 11/08/21 12:00 102 30 102/58 (73) 88 Mechanical Ventilator 90.00 11/08/21 11:51 36.0 11/08/21 11:33 91 82/48 11/08/21 11:02 87 Mechanical Ventilator 100 11/08/21 11:00 101 30 99/57 (71) 87 Mechanical Ventilator 90.00 11/08/21 10:00 101 30 105/58 (74) 88 Mechanical Ventilator 90.00 11/08/21 09:25 101 30 88 100 11/08/21 09:00 102 29 107/58 (74) 88 Mechanical Ventilator 90.00 11/08/21 08:37 101 108/58 11/08/21 08:30 88 Mechanical Ventilator 100 11/08/21 08:00 36.5 11/08/21 08:00 103 30 110/58 (75) 89 Mechanical Ventilator 90.00 11/08/21 07:17 107 30 88 100 11/08/21 07:00 102 30 109/56 (73) 84 Mechanical Ventilator 90.00 11/08/21 07:00 105 11/08/21 06:00 98 30 105/55 (72) 87 Mechanical Ventilator 90.00 11/08/21 05:31 93 24 107/51 11/08/21 05:00 93 30 96/51 (66) 87 Mechanical Ventilator 90.00 11/08/21 04:00 92 30 107/54 (71) 88 Mechanical Ventilator 90.00 11/08/21 04:00 Mechanical Ventilator 80 11/08/21 03:53 36.2 Mechanical Ventilator 90.00 11/08/21 03:00 96 30 104/53 (70) 88 Mechanical Ventilator 80.00 11/08/21 02:57 96 103/52 11/08/21 02:42 97 30 91 90 11/08/21 02:00 97 30 112/57 (75) 89 Mechanical Ventilator 80.00 I & O 11/09/21 07:00 Intake Total 1030 ml Output Total 500 ml Balance 530 ml Height & Weight Height: 5'10.00" Weight: 182lbs. 0.0oz. 82.018214ph; 25.79 BMI Method: General Appearance: No Apparent Distress HEENT: TMs Normal Neck: Full Range of Motion Respiratory: Decreased Breath Sounds, Rhonci, Wheezing Cardiovascular: Regular Rate, Rhythm Capillary Refill: Less Than 3 Seconds Peripheral Pulses: 1+ Dorsalis Pedis (R), 1+ Left Dors-Pedis (L) Gastrointestinal: normal bowel sounds, non tender, soft Extremity: Slow Capillary Refill Neurologic/Psychiatric: Other (on vent sedated) Skin: Normal Color Lymphatic: No Adenopathy Results Lab Laboratory Tests 11/07/21 03:45 11/08/21 00:05 11/08/21 03:57 Assessment/Plan Assessment/Plan pneumothorax probably from combination of necrotic lung, positive pressure from vent outlook very poor, now DNR Critical Care: Ventilator Management Time spent with patient (mins): 20 LOWELL CONNOR MD Nov 09, 2021 01:44
--- NOTE | 2021-11-09 01:45 | Anesthesia-Procedure Note ---
Procedures/Interventions Procedure Start/Stop/Diagnosis Date of Procedure: Nov 08, 2021 Start Time: 22:10 Brief History Called to ICU 1 for ett exchange. Patient has been desating and RT at bedside bagging patient. At first, staff thought maybe ett had become dislodged, but after checking for etco2, they feel there is a leak and thus request ett be exchanged. The ett has been in since the patient was admitted back in September. I noted patient's saO2 in mid 80s and staff said it ranges from 85-88%. I first looked with the Hicks and did not see the balloon above or at the level of the vocal cords, which sometimes is the issue. Noted lots of thick sputum that we were unsuccessful of clearing with multiple attempts at different suction catheters. I used a purple, flimsy tipped tube exchanger to replace 8.0 ett with a new 8.0 ett. Upon exchanging, we did not get color change on etc02 and could hear a large leak, SaO2 dropping, thus I used the Hicks to place the 8.0 ett thru the vocal cords at 26 cm at lip and got instant color change with chest ris e noted. SaO2 climbed back up to 86-87%. RT noted patient was unable to hold TV when placing patient on the vent, thus they are looking into a probable pnemo. Reported off to RN. Will be available for further consultation. Stop Time: 22:30 INES INGRAM CRNA Nov 09, 2021 01:45
[2021-11-09 01:48] LABS: ABG PCO2 128 MMHG (35-45); ABG PH 6.93 (7.37-7.43)
[2021-11-09 01:49] LABS: ALLENS TEST ARTLINE; INSPIRED O2 100%; PATIENT TEMP 36.8; VENTILATOR YES
--- NOTE | 2021-11-09 01:50 | Progress Note - Surgery ---
Subjective Date Seen by a Provider: Nov 09, 2021 Time Seen by a Provider: 00:30 Subjective/Events-last exam Patient intubated and sedated. Having to be bag masked. Increasing pneumothorax on right. O2 saturation continues to decrease. Has a right chest tube that was placed to suction with air leak. Follow up x ray still demonstrating pneumothorax right basilar. Family present. Objective Exam Vital Signs Date Time Temp Pulse Resp B/P (MAP) Pulse Ox O2 Delivery O2 Flow Rate FiO2 11/09/21 01:33 132 129/70 11/09/21 00:43 132 129/70 11/09/21 00:00 128 24 117/65 (82) 80 Mechanical Ventilator 100.00 11/08/21 23:33 88/52 11/08/21 23:12 85/63 11/08/21 23:00 122 25 102/61 (75) 85 Mechanical Ventilator 100.00 11/08/21 22:44 36.6 11/08/21 22:00 123 24 91/54 (66) 84 Mechanical Ventilator 100.00 11/08/21 21:51 123 93/59 11/08/21 21:00 121 23 96/60 (72) 83 Mechanical Ventilator 100.00 11/08/21 20:00 102 30 97/56 (70) 85 Mechanical Ventilator 100.00 11/08/21 19:00 103 30 101/58 (72) 88 Mechanical Ventilator 100.00 11/08/21 19:00 103 11/08/21 18:57 104 30 88 100 11/08/21 18:00 102 30 106/61 (76) 98 Mechanical Ventilator 90.00 11/08/21 17:33 81/50 11/08/21 17:00 102 30 104/59 (74) 87 Mechanical Ventilator 90.00 11/08/21 17:00 86 Mechanical Ventilator 100 11/08/21 16:59 102 102/60 11/08/21 16:58 102 102/60 11/08/21 16:57 102 102/60 11/08/21 16:00 102 30 102/60 (74) 88 Mechanical Ventilator 90.00 11/08/21 16:00 36.0 11/08/21 15:00 103 30 99/57 (71) 88 Mechanical Ventilator 90.00 11/08/21 14:35 17 30 89 100 11/08/21 14:00 101 30 102/58 (73) 88 Mechanical Ventilator 90.00 11/08/21 13:39 101 11/08/21 13:00 102 30 98/57 (71) 88 Mechanical Ventilator 90.00 11/08/21 12:31 102 11/08/21 12:00 102 30 102/58 (73) 88 Mechanical Ventilator 90.00 11/08/21 11:51 36.0 11/08/21 11:33 91 82/48 11/08/21 11:02 87 Mechanical Ventilator 100 11/08/21 11:00 101 30 99/57 (71) 87 Mechanical Ventilator 90.00 11/08/21 10:00 101 30 105/58 (74) 88 Mechanical Ventilator 90.00 11/08/21 09:25 101 30 88 100 11/08/21 09:00 102 29 107/58 (74) 88 Mechanical Ventilator 90.00 11/08/21 08:37 101 108/58 11/08/21 08:30 88 Mechanical Ventilator 100 11/08/21 08:00 36.5 11/08/21 08:00 103 30 110/58 (75) 89 Mechanical Ventilator 90.00 11/08/21 07:17 107 30 88 100 11/08/21 07:00 102 30 109/56 (73) 84 Mechanical Ventilator 90.00 11/08/21 07:00 105 11/08/21 06:00 98 30 105/55 (72) 87 Mechanical Ventilator 90.00 11/08/21 05:31 93 24 107/51 11/08/21 05:00 93 30 96/51 (66) 87 Mechanical Ventilator 90.00 11/08/21 04:00 92 30 107/54 (71) 88 Mechanical Ventilator 90.00 11/08/21 04:00 Mechanical Ventilator 80 11/08/21 03:53 36.2 Mechanical Ventilator 90.00 11/08/21 03:00 96 30 104/53 (70) 88 Mechanical Ventilator 80.00 11/08/21 02:57 96 103/52 11/08/21 02:42 97 30 91 90 11/08/21 02:00 97 30 112/57 (75) 89 Mechanical Ventilator 80.00 I & O 11/09/21 07:00 Intake Total 1030 ml Output Total 500 ml Balance 530 ml Capillary Refill : Less Than 3 Seconds General Appearance: Other (Intubated sedated ) HEENT: Normal ENT Inspection Neck: Normal Inspection Respiratory: Decreased Breath Sounds, Other (minimal chest rise b/l) Cardiovascular: Regular Rate, Rhythm, No JVD Peripheral Pulses: 1+ Dorsalis Pedis (R), 1+ Left Dors-Pedis (L) Gastrointestinal: normal bowel sounds Extremity: Slow Capillary Refill, Swelling Neurologic/Psychiatric: Other (intubated sedated) Skin: Other (pale, minimally dusky) Lymphatic: No Adenopathy Results Lab Laboratory Tests 11/08/21 03:57: White Blood Count 22.5H, Red Blood Count 2.99L, Hemoglobin 8.5L, Hematocrit 29L, Mean Corpuscular Volume 95, Mean Corpuscular Hemoglobin 28, Mean Corpuscular Hemoglobin Concent 30L, Red Cell Distribution Width 17.3H, Platelet Count 347, Mean Platelet Volume 11.3, Immature Granulocyte % (Auto) 7, Neutrophils (%) (Auto) 79H, Lymphocytes (%) (Auto) 3L, Monocytes (%) (Auto) 10, Eosinophils (%) (Auto) 1, Basophils (%) (Auto) 1, Neutrophils # (Auto) 17.7H, Lymphocytes # (Auto) 0.8L, Monocytes # (Auto) 2.2H, Eosinophils # (Auto) 0.1, Basophils # (Auto) 0.2H, Immature Granulocyte # (Auto) 1.6H, Sodium Level 142, Potassium Level 3.6, Chloride Level 105, Carbon Dioxide Level 22, Anion Gap 15H, Blood Urea Nitrogen 20H, Creatinine 1.28, Estimat Glomerular Filtration Rate 59, BUN/Creatinine Ratio 16, Glucose Level 76, Calcium Level 8.1L, Corrected Calcium 9.9, Phosphorus Level 4.4, Magnesium Level 2.1, Total Bilirubin 0.4, Aspartate Amino Transf (AST/SGOT) 17, Alanine Aminotransferase (ALT/SGPT) 6, Alkaline Phosphatase 100, Total Protein 5.3L, Albumin 1.8L, Triglycerides Level 384H 11/08/21 11:27: Glucometer 71 11/08/21 17:40: Glucometer 65L 11/09/21 00:25: Microbiology 11/05/21 Blood Culture - Preliminary, Resulted No growth 10/25/21 Gram Stain - Final, Complete 10/25/21 Sputum Culture - Final, Complete Usual Mixed Pat Staphylococcus aureus Probable Klebsiella/Enterobact 10/14/21 Urine Culture - Final, Complete NO GROWTH Assessment/Plan Assessment/Plan Assessment/Plan covid resp failure with cardiac arrest and right ptx s/p ct. recurrent pneumothorax right basilar likely from high peep and likely component of necrotic lung placed first chest tube atrium to suction. no signficant improvement therefore placed a thoravent which had large air leak and first chest tube now without air leak. Still unable to ventilate patient with ventilator and having to be bag masked. O2 saturation in 80's. Follow up chest x ray does show some reexpansion of right lung. Discussed with family and Dr. Diana care futile at this point and family wish to make DNR. We will change vent settings to lower tidal volumes and lower peep, but likely will continue to decline which family demonstrates understanding. Total time 1hr15 min reviewing chart, evaluating patient and coordinating care spent. Procedure: right chest Thora vent placement Right chest was prepped draped in sterile fashion timeout is performed. Right anterior axilary line incision was made at right 6th intercostal space with 11 blade scalpel. Thoravent catheter and trocar inserted through the incision to the chest wall until into the chest cavity and the catheter was advanced and the trocar was removed. The Thora vent valve demonstrated motion. It is secured in the usual fashion. Attached to atrium with air leak. Patient tolerated procedure well with any complications chest x-ray pending. MELVA VIRGEN DO Nov 09, 2021 01:50
[2021-11-09 05:52] LABS: POTASSIUM 4.6 MMOL/L (3.6-5.0)
[2021-11-09 05:54] LABS: CALCIUM 8.1 MG/DL (8.5-10.1)
[2021-11-09 05:55] LABS: TOTAL PROTEIN 5.6 GM/DL (6.4-8.2)
[2021-11-09 05:57] LABS: BILIRUBIN,TOTAL 0.5 MG/DL (0.1-1.0)
[2021-11-09 05:58] LABS: PHOSPHORUS 6.3 MG/DL (2.3-4.7)
[2021-11-09 05:59] LABS: CREATININE SERUM 1.77 MG/DL (0.60-1.30)
[2021-11-09 06:01] LABS: MAGNESIUM 2.1 MG/DL (1.6-2.4)
[2021-11-09] MEDS: POTASSIUM CL 10MEQ/50ML IVPB 50 ML IV SCH (06:02)
[2021-11-09] MEDS: MAGNESIUM 1 GM/100 ML IVPB 100 ML IV SCH (06:02)
[2021-11-09] MEDS: KCL 20 MEQ TAB (K-DUR) PO SCH (06:03)
[2021-11-09 06:15] LABS: BAND NEUTROPHILS 8 %; LYMPHOCYTES % (MANUAL) 5 %; MONOCYTES % (MANUAL) 8 %; MYELOCYTES % 5 %; NEUTROPHILS % (MANUAL) 74 %; NUCLEATED RED BLOOD CELLS 2; PLATELET CLUMPS SLIGHT
[2021-11-09 06:16] LABS: ANISOCYTOSIS SLIGHT; ELLIPT/OVALOCYTES SLIGHT; POLYCHROMASIA SLIGHT
--- NOTE | 2021-11-09 06:19 | Diagnostic Imaging Report ---
INDICATION: Follow-up pneumothorax EXAMINATION: Chest 11/08/2021 COMPARISON: 11/08/2021 at an earlier time FINDINGS: There is a persistently increasing pneumothorax on the right incompletely imaged inferiorly. There is infiltrate in the right upper lung. There is diffuse opacification of the left hemithorax similar to previous imaging. There is a feeding tube with its tip not seen. ET tube unremarkable. Right central line tip in the SVC. IMPRESSION: 1. Increasing right pneumothorax again noted with a chest tube in place not mentioned above. 2. Diffuse bilateral infiltrates in the remaining lungs, left worse than right. Dictated by: Dictated on workstation # [id number]
[2021-11-09 06:56] LABS: ABG BASE EXCESS -7.7 MMOL/L (-2.5-2.5); ABG OXYGEN SATURATION 72 % (94-100); ABG PO2 43 MMHG (79-93)
[2021-11-09 06:58] LABS: ABG PH 7.05 (7.37-7.43)
[2021-11-09 06:59] LABS: ABG PCO2 83 MMHG (35-45); ALLENS TEST ART LINE; INSPIRED O2 30%; PATIENT TEMP 37.2; VENTILATOR YES
--- NOTE | 2021-11-09 08:02 | Diagnostic Imaging Report ---
EXAM: CHEST 1 VIEW, AP/PA ONLY INDICATION: Respiratory failure. COMPARISON: Chest radiograph 11/09/2021 at 1:00 AM. FINDINGS: ETT tip at the level of the clavicles. NG tube tip in the stomach. Dense airspace consolidation throughout both lungs. Right subclavian PICC tip mid SVC. Right chest tube. No pneumothorax. Small bilateral pleural effusions. IMPRESSION: 1. Support lines in the expected positions. 2. Dense airspace opacities throughout both lungs. Dictated by: Dictated on workstation # [id number]
--- NOTE | 2021-11-09 08:02 | Diagnostic Imaging Report ---
INDICATION: Pneumothorax check. EXAMINATION: Chest 11/09/2021 at 1:00 a.m. COMPARISON: 11/08/2021 FINDINGS: There is a persistent large pneumothorax predominantly seen at the right lung base. There is infiltrate throughout the remaining right mid and upper lung. Diffuse opacification of the left hemithorax similar to previous imaging. The heart is stable. Pulmonary vasculature is likely congested. There is a feeding tube poorly seen distally with ET tube unremarkable in positioning. There is a chest tube on the right. There is a right-sided central line with the tip in the SVC. Mild subcutaneous emphysema seen in the right hemithorax. IMPRESSION: 1. Persistent large right pneumothorax with chest tube in place. 2. Diffuse bilateral infiltrates otherwise noted with other findings as above. Dictated by: Dictated on workstation # [id number]
[2021-11-09] MEDS: MIDODRINE 10 MG (PROAMATINE) TAB PO SCH ×2 (08:21→13:03)
[2021-11-09] MEDS: MIDAZOLAM DRIP PRE-MIX 100 ML IV SCH (08:21)
[2021-11-09] MEDS: AMIODARONE 200 MG (CORDARONE) TAB PO SCH (08:22)
[2021-11-09] MEDS: LIDOCAINE 4% (SALONPAS) PATCH TOP SCH (08:42)
--- NOTE | 2021-11-09 08:44 | Cardiology Progress Note ---
Progress Note-Cardiology Events since last exam Date Seen by Provider: Nov 09, 2021 Time Seen by Provider: 08:42 Events since last exam I am following him due to atrial fibrillation. He remains in the intensive care unit intubated and sedated. He is on 100% FiO2 but oxygenating poorly. His family has requested a tracheostomy at the surgeon is not sure the patient would survive the procedure. He remains on norepinephrine infusion due to shock. He has not had any recurrent atrial fibrillation. I did not see the patient due to his COVID status. I did speak with his nurse of today. Certain portions of this document may have been dictated utilizing voice recognition technology. Inherent to this technology, typographical and grammatical errors may exist. As much as I am diligent to identify and correct these mistakes, some errors may remain in the document. Dr. Mcqueen is covering me for the weekend. Please contact him if you have any questions or concerns. Vitals Last set of Vitals Signs Vital Signs 11/09/21 11/09/21 11/09/21 07:27 07:52 09:00 Temp 36.2 Pulse 117 Resp 30 B/P (MAP) 104/57 (73) Pulse Ox 79 O2 Delivery Mechanical Ventilator O2 Flow Rate 100.00 FiO2 100 Labs Labs Laboratory Tests 11/09/21 00:05 11/09/21 05:30 Exam Vital Signs Vital Signs Date Time Temp Pulse Resp B/P (MAP) Pulse Ox O2 Delivery O2 Flow Rate FiO2 11/09/21 09:00 117 30 104/57 (73) 79 Mechanical Ventilator 100.00 11/09/21 07:52 36.2 11/09/21 07:27 100 Physical Exam I did not examine the patient due to his COVID status. Labs Laboratory Tests Test 11/08/21 11:27 11/08/21 17:40 11/09/21 00:05 11/09/21 00:25 Range/Units Glucometer 71 65 L 70-110 MG/DL White Blood Count 31.4 *H 4.3-11.0 10^3/uL Red Blood Count 3.43 L 4.30-5.52 10^6/uL Hemoglobin 9.7 L 13.3-17.7 g/dL Hematocrit 33 L 40-54 % Mean Corpuscular Volume 97 80-99 fL Mean Corpuscular Hemoglobin 28 25-34 pg Mean Corpuscular Hemoglobin Concent 29 L 32-36 g/dL Red Cell Distribution Width 17.8 H 10.0-14.5 % Platelet Count 567 H 130-400 10^3/uL Mean Platelet Volume 11.3 9.0-12.2 fL Immature Granulocyte % (Auto) 13 % Neutrophils (%) (Auto) 72 42-75 % Lymphocytes (%) (Auto) 3 L 12-44 % Monocytes (%) (Auto) 10 0-12 % Eosinophils (%) (Auto) 0 0-10 % Basophils (%) (Auto) 1 0-10 % Neutrophils # (Auto) 22.6 H 1.8-7.8 10^3/uL Lymphocytes # (Auto) 1.0 1.0-4.0 10^3/uL Monocytes # (Auto) 3.1 H 0.0-1.0 10^3/uL Eosinophils # (Auto) 0.1 0.0-0.3 10^3/uL Basophils # (Auto) 0.4 H 0.0-0.1 10^3/uL Immature Granulocyte # (Auto) 4.2 H 0.0-0.1 10^3/uL Neutrophils % (Manual) 74 % Lymphocytes % (Manual) 5 % Monocytes % (Manual) 8 % Myelocytes % 5 % Band Neutrophils 8 % Nucleated Red Blood Cells 2 Clumped Platelets SLIGHT Percent Immature Platelet Fraction 0.0-7.6 % Polychromasia SLIGHT Anisocytosis SLIGHT Elliptocytes SLIGHT Prothrombin Time 17.9 H 12.2-14.7 SEC INR Comment 1.4 0.8-1.4 Activated Partial Thromboplast Time 45 H 24-35 SEC Smear Scan Blood Gas Puncture Site ARTLINE Blood Gas Patient Temperature 36.8 Arterial Blood pH 6.93 *L 7.37-7.43 Arterial Blood Partial Pressure CO2 128 *H 35-45 MMHG Arterial Blood Partial Pressure O2 50 L 79-93 MMHG Arterial Blood HCO3 26 23-27 MMOL/L Arterial Blood Total CO2 29.5 21.0-31.0 MMOL/L Arterial Blood Oxygen Saturation 75 L 94-100 % Arterial Blood Base Excess -6.2 L -2.5-2.5 MMOL/L To Test ARTLINE Blood Gas Ventilator Setting YES Blood Gas Inspired Oxygen 100% Test 11/09/21 05:30 11/09/21 06:40 Range/Units Sodium Level 137 135-145 MMOL/L Potassium Level 4.6 3.6-5.0 MMOL/L Chloride Level 106 98-107 MMOL/L Carbon Dioxide Level 20 L 21-32 MMOL/L Anion Gap 11 5-14 MMOL/L Blood Urea Nitrogen 23 H 7-18 MG/DL Creatinine 1.77 H 0.60-1.30 MG/DL Estimat Glomerular Filtration Rate 45 BUN/Creatinine Ratio 13 Glucose Level 82 70-105 MG/DL Lactic Acid Level 0.85 0.50-2.00 MMOL/L Calcium Level 8.1 L 8.5-10.1 MG/DL Corrected Calcium 9.7 8.5-10.1 MG/DL Phosphorus Level 6.3 H 2.3-4.7 MG/DL Magnesium Level 2.1 1.6-2.4 MG/DL Total Bilirubin 0.5 0.1-1.0 MG/DL Aspartate Amino Transf (AST/SGOT) 33 5-34 U/L Alanine Aminotransferase (ALT/SGPT) 8 0-55 U/L Alkaline Phosphatase 121 40-136 U/L Total Protein 5.6 L 6.4-8.2 GM/DL Albumin 2.0 L 3.2-4.5 GM/DL Triglycerides Level 412 #H <150 MG/DL Amylase Level 118 25-125 U/L Blood Gas Puncture Site RT ARTLINE Blood Gas Patient Temperature 37.2 Arterial Blood pH 7.05 *L 7.37-7.43 Arterial Blood Partial Pressure CO2 83 *H 35-45 MMHG Arterial Blood Partial Pressure O2 43 L 79-93 MMHG Arterial Blood HCO3 22 L 23-27 MMOL/L Arterial Blood Total CO2 24.0 21.0-31.0 MMOL/L Arterial Blood Oxygen Saturation 72 L 94-100 % Arterial Blood Base Excess -7.7 L -2.5-2.5 MMOL/L To Test ART LINE Blood Gas Ventilator Setting YES Blood Gas Inspired Oxygen 30% Diagnosis/Problems Diagnosis/Problems (1) Paroxysmal atrial fibrillation Status: Acute Assessment & Plan: This was a new finding on this patient during this admission. This was most most likely brought on by the resuscitative efforts during his cardiopulmonary arrest and possibly Covid infection. Since his cardioversion on 10/18, he remains in sinus rhythm and sinus tachycardia on oral amiodarone. I decreased the dose of amiodarone on 10/26/2021. I changed this to 100 mg once daily on 11/05. Since the atrial fibrillation was most likely brought on by his cardiopulmonary arrest and lasted less than 48 hours, he does not necessarily need anticoagulation for the atrial fibrillation. However, he was on apixaban due to left lower extremity deep venous thrombosis discovered during this admission. (2) Septic shock Status: Resolved Assessment & Plan: Most likely related to Covid pneumonia. As above, we will continue norepinephrine infusion and wean as tolerated. I started him on low- dose oral midodrine on 11/05 to see if this may help get him off the norepinephrine infusion. I increased the dose on 11/06 and his blood pressures had improved but are worse again and he is requiring high doses of norepinephrine. Prognosis is guarded. Resolution Date/Time: 11/02/21 @ 21:57 (3) Primary hypertension Assessment & Plan: He has been intermittently on intravenous norepinephrine due to recurrent shock. All antihypertensive medications are on hold until and if he comes off vasopressor medication. I removed all of his outpatient antihypertensive medication from the inpatient list. (4) Mixed hyperlipidemia Assessment & Plan: Continue statin medication. (5) Acute respiratory failure due to COVID-19 Status: Acute Assessment & Plan: The hospitalist and eICU are managing the ventilator. He remains on high PEEP levels and high concentrations of oxygen. Prognosis remains guarded. (6) Deep vein thrombosis of left lower extremity Assessment & Plan: Possibly related to Covid infection. Apixiban will need to be held if he undergoes a tracheostomy and/or PEG. KAIT MORENO JR, MD Nov 09, 2021 08:43
[2021-11-09] MEDS: PANTOPRAZOLE INJECTION 200 MG in NS (IVPB) 100 ML IV SCH (08:57)
--- NOTE | 2021-11-09 09:09 | Tele-ICU Progress Note ---
Subjective Date Seen by a Provider: Nov 09, 2021 Time Seen by a Provider: 09:09 Sepsis Event Evaluation Height, Weight, BMI Height: 5'10.00" Weight: 182lbs. 0.0oz. 82.252765tv; 25.79 BMI Method: Focused Exam Lactate Level 11/09/21 05:30: Lactic Acid Level 0.85 Lactic Acid Level Laboratory Tests Test 11/09/21 05:30 Lactic Acid Level 0.85 MMOL/L (0.50-2.00) Exam Exam Patient acknowledged, consented, and participated in this virtual visit which was conducted using real time audio/video Vital Signs Date Time Temp Pulse Resp B/P (MAP) Pulse Ox O2 Delivery O2 Flow Rate FiO2 11/09/21 08:24 109 92/49 11/09/21 08:23 109 92/49 11/09/21 08:21 109 30 92/49 11/09/21 08:21 109 92/49 11/09/21 08:00 109 30 92/49 (63) 77 Mechanical Ventilator 100.00 11/09/21 07:52 36.2 11/09/21 07:27 116 30 76 100 11/09/21 07:00 116 30 97/51 (66) 76 Mechanical Ventilator 100.00 11/09/21 07:00 117 11/09/21 06:40 115 76/43 11/09/21 06:00 118 30 97/51 (66) 76 Mechanical Ventilator 100.00 11/09/21 05:21 114 81/46 11/09/21 05:00 121 30 99/5 (36) 76 Mechanical Ventilator 100.00 11/09/21 04:00 120 30 103/55 (71) 75 Mechanical Ventilator 100.00 11/09/21 04:00 82 Ambu Bag 11/09/21 03:49 120 106/55 11/09/21 03:00 123 30 115/59 (77) 75 Mechanical Ventilator 100.00 11/09/21 02:29 124 30 75 100 11/09/21 02:17 121 88/48 11/09/21 02:00 123 30 98/51 (67) 75 Mechanical Ventilator 100.00 11/09/21 01:33 132 129/70 11/09/21 01:00 123 30 120/66 (84) 86 Mechanical Ventilator 100.00 11/09/21 01:00 123 11/09/21 00:43 132 129/70 11/09/21 00:00 128 24 117/65 (82) 80 Mechanical Ventilator 100.00 11/09/21 00:00 83 Ambu Bag 11/08/21 23:33 88/52 11/08/21 23:12 85/63 11/08/21 23:00 122 25 102/61 (75) 85 Mechanical Ventilator 100.00 11/08/21 22:44 36.6 11/08/21 22:00 123 24 91/54 (66) 84 Mechanical Ventilator 100.00 11/08/21 21:51 123 93/59 11/08/21 21:00 121 23 96/60 (72) 83 Mechanical Ventilator 100.00 11/08/21 20:00 85 Mechanical Ventilator 100 11/08/21 20:00 102 30 97/56 (70) 85 Mechanical Ventilator 100.00 11/08/21 19:00 103 30 101/58 (72) 88 Mechanical Ventilator 100.00 11/08/21 19:00 103 11/08/21 18:57 104 30 88 100 11/08/21 18:00 102 30 106/61 (76) 98 Mechanical Ventilator 90.00 11/08/21 17:33 81/50 11/08/21 17:00 102 30 104/59 (74) 87 Mechanical Ventilator 90.00 11/08/21 17:00 86 Mechanical Ventilator 100 11/08/21 16:59 102 102/60 11/08/21 16:58 102 102/60 11/08/21 16:57 102 102/60 11/08/21 16:00 102 30 102/60 (74) 88 Mechanical Ventilator 90.00 11/08/21 16:00 36.0 11/08/21 15:00 103 30 99/57 (71) 88 Mechanical Ventilator 90.00 11/08/21 14:35 17 30 89 100 11/08/21 14:00 101 30 102/58 (73) 88 Mechanical Ventilator 90.00 11/08/21 13:39 101 11/08/21 13:00 102 30 98/57 (71) 88 Mechanical Ventilator 90.00 11/08/21 12:31 102 11/08/21 12:00 102 30 102/58 (73) 88 Mechanical Ventilator 90.00 11/08/21 11:51 36.0 11/08/21 11:33 91 82/48 11/08/21 11:02 87 Mechanical Ventilator 100 11/08/21 11:00 101 30 99/57 (71) 87 Mechanical Ventilator 90.00 11/08/21 10:00 101 30 105/58 (74) 88 Mechanical Ventilator 90.00 11/08/21 09:25 101 30 88 100 I & O 11/09/21 07:00 Intake Total 2680 ml Output Total 1590 ml Balance 1090 ml Height & Weight Height: 5'10.00" Weight: 182lbs. 0.0oz. 82.124704cf; 25.79 BMI Method: General Appearance: Other (Intubated sedated ) HEENT: Normal ENT Inspection Neck: Normal Inspection Respiratory: Decreased Breath Sounds, Other (minimal chest rise b/l) Cardiovascular: Regular Rate, Rhythm, No JVD Capillary Refill: Less Than 3 Seconds Peripheral Pulses: 1+ Dorsalis Pedis (R), 1+ Left Dors-Pedis (L) Gastrointestinal: normal bowel sounds Extremity: Slow Capillary Refill, Swelling Neurologic/Psychiatric: Other (intubated sedated) Skin: Other (pale, minimally dusky) Lymphatic: No Adenopathy Results Lab Laboratory Tests 11/08/21 03:57 11/09/21 00:05 11/09/21 05:30 Assessment/Plan Assessment/Plan (Tele-ICU Physician , Progress Note ) Available chart/ vitals / labs / Images reviewed Video assessment done using teleICU camera, rest of exam as per RN Discussed with RN , EXAM PER RN Events overnight : Afebrile I/O = even Drips: Pressors: LEVO Sedation gtt: ( RASS precedex 1.3, fent 300 anyl prop 50 versed 6 paralized ) VENT SETTINGS and ABG reviewed Not candidate for SBT today REVIEWED Cardiovascular Stability / Sedation Score / FI02/PEEP / ABG / CXR Consultants: Hospital course: (10/08) 77 y/o female admitted for COVID+, transfer from other facility - , VT 20L 70% 10/09 changed to BIPAP 10/10 Bipap 100% _ precedex 0.4 10/11 - VT 35/80% prn bipap , precedex 0.4 - LEFT LE DVT 10/14 - VT 60L 75% , , BIPAP 60%- precedex 1.0, STARTED ZOSYN 10/15 - VT 40 100% , worsenign cxr on right , worsenign right sided pain 10/18 - ETT< card/pulm arrest - ROSC , PTX , chest tube on LEFT 10/18 - a fin RVR - cardioverted 10/19 - peep 18 60%, 10/20 - Thoravent on ADDITION to chest tube - both with leak, LEVO 10/21 - fio2 40% peep 5, follows commands 10/23 - fio2 75% peep 5 - BOTH CHEST TUBE sWITHOUT leak , tidal variations and minimal fluid drainage - fio2 70 % + 5 - CT CHEST with small PTX and large infitrate RLL 10/25- fio2 60 % +5 stareted Merrem and eraxis 10/30 - attempts to probe - desated more in probe position in 80 > 2 h 10/31 - PARALIZED peep 16 95% PAP 50 , 11/01 - initiated gentle DIURESIS , bumex 0.5 qd 11/02 - down to 70% , trying off paralizIS 11/05 = not tolerates TF - distended abd , coffee-ground in NG , Fio2 60% peep 14 , mididrin added 11/06- decreased HB - stating PPI GTT , with diuresis FIO2to 55% peep 14 DO NOT TOLERATED OFF PARALITICS , OFF AC 08/28= 80% FiO2 with a PEEP of 12, US LE - stable DVT 11/08- 75 % FiO2 +15 negative balance, SEVERE DESAT with moving to get CXT - NOT recovering 2 h latter with 100% 11/09 - ptx ON right AGAIN - THORAVENT PLACED , PEEP 10 . 100% , SATS AT 80S A/P AHRF / ARDS due to severe COVID19 ( CTA neg for pe 10/07 - in other facility , reportedly - did not see report personally - INTUBATED - 10/18 - AC 26 - 375 - Fio2 100% peep 10 PAP 50 severe resp acidosis can not ventilate better with bery high PAP , can not increase peep with PTX card/pulm arrest -10/18 ROSC , PTX - CTH negative 10/19 -was following commands as per ticket sales agent post arrest - PARALIZED now Shock - levo increased -cortisol 11/02=14 - midodrin 11/05 10 tid - not absorbing - albumin x2 today GEORGE - -worsenig , but will hold diuresis given worsenign Cr/GFR , albumin x2 - follow closely ID - WORSENING LEUKOCYTOSIS 11/09 #1. RLL PNA - started on Zosyn 10/14 - > - resumed on 10/19 -> 10/24 - CT 10/06. 10/19, 1229 -with significant infiltrate on RLL - 10/25 sputum cx, MSSA, Kleb, Enterobac , Merrem a1 -> 11/01 -cont eraxis - consider CT again - ? dveloping necrosis - AZTREONAM AND LINEZOLID empirifcally on 11/08 #2. - repeated cx line 11/05 - neg [id number]-Zqjamwlytpt-5/COVID- PNA ( Symptom onset unknown now DX unvaccinted --Dexamethasone - chanhged to 10 qd with wheexzng 10/10- >10/20 - OFF STEROIDS NOW -Hypercoagulable state - DVT and PE- ON HOLD NOW Pneumomediastinum on ct 10/06- 10/18 - PTX , RIGHT - chest tube in place clummped ( Thoravent on ADDITION to chest tube 10/20 - removed now 11/09 - PTX on right again - ADDITIONL TUBE PLACED AGAIN a fib RVR - cardioverted - 10/18 - in sinus , s/p amio bolus , on PO amio now - ECHO 10/12 - EF and RVSP WNL Left lower extremity DVT dx 10/12 - small PE on CT 10/19 - fill dose lovenox - >eliquis 10/21 --> STOPPED 11/05 with suspected GIB - FOLLOW TO RESUME AC KENIA - 11/06- survelance US ( off AC with GIB )-residual thrombus in the left peroneal vein Poor tolerance of TF - starting reglan 11/02 , KUB nonspecific -TPN to start Elev TGL 500 11/05 - decrease propofol if possible , amylase 11/06 WNL - follow , 11/08 DISCUSSED WITH BROTHER ( WHO IS MD - HOSPITALIST IN OTHER STATE ) POOR PROGNOSIS WITH ONGOING HYPOXIA, GEORGE, AND ONGOING INFECTION Lines : 10/18 - crntal line Central Line Necessity Reviewed) Hurd: 10/08 OG: Nutrition: TF on hold Analgesia: Anxiety/ delirium = VTE Prophylaxis: on hold Stress Ulcer Prophylaxis: ppi gtt Plans in collaboration with bedside consultants and IM MDs. Discussed with RN to reach out if any questions or concerns A total of 40 minutes of critical care time was devoted to this patient today, required to treat and/or prevent further deterioration of critical care condition ( as above ) . JOHN CROW MD Nov 09, 2021 09:09
[2021-11-09] MEDS: ACYCLOVIR 400 MG TABLET (ZOVIRAX) PO SCH (09:26)
[2021-11-09] MEDS: NOREPINEPHRINE 16 MG in NS (IVPB) 250 ML IV SCH ×3 (10:45→15:39)
[2021-11-09] MEDS: RT-ALBUTEROL HFA 8.5 GM INHALER IH SCH ×2 (10:57→14:18)
--- NOTE | 2021-11-09 13:56 | Progress Note ---
Standard Progress Note Progress Notes/Assess & Plan Date Seen by a Provider: Nov 09, 2021 Time Seen by a Provider: 13:00 Progress/Assessment & Plan patient hx/notes once again evaluated. now week 6 of ET intubation. 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 patient also desaturated into 70% range even with movements associated with a one view p-cxr. I feel taking him to the OR for tracheostomy and PEG at this point would cause definitive morbidity and mortality and will defer patients case to ethics committee. s/p ethics committee meeting this am. consensus understanding extremely poor condition and would not tolerate any procedure/surgery/transfers. likely not an ECMO candidate in any event and documentation from ECMO center will be obtained. family in understanding and made DNR. Focused Exam Lactate Level 11/09/21 05:30: Lactic Acid Level 0.85 KAVON WOLFE MD Nov 09, 2021 13:56
[2021-11-09] MEDS ORDERED: ALBUMIN 25% 25 GM/100 ML 50 ML IV SCH (14:00)
[2021-11-09] MEDS ORDERED: SODIUM ACETATE IV SCH ×8 (17:00)
[2021-11-09] MEDS ORDERED: POTASSIUM CHLORIDE IV SCH ×8 (17:00)
[2021-11-09] MEDS ORDERED: [UNRECOGNIZED DRUG - OTHER] IV SCH ×8 (17:00)
--- NOTE | 2021-11-09 18:48 | Progress Note ---
Subjective Subjective/Events-last exam Patient intubated and sedated. ON events: Patient had episode of hypoxia and required bagging last night for [address] Rodriguez was called to replace chest tube. Patient did not tolerate being put back on the vent and when he finally was maintained oxygen saturations in the 70s. Patient's family was present and Dr Rodriguez spoke with them and changed patient's code status to no code. This AM the nursing staff and I had conversations with Adalid regarding the patient's current status and they agreed that patient was not stable for transfer and so patient was removed from the transfer list. They were going to discuss amoung the family regarding where to go from here. Patient's status is very grave and will likely result in at this time due to severe hypoxia. Review of Systems Unable to obtain due to intubation and sedation Focused Exam Lactate Level 11/09/21 05:30: Lactic Acid Level 0.85 Objective Exam Last Set of Vital Signs Vital Signs Date Time Temp Pulse Resp B/P (MAP) Pulse Ox O2 Delivery O2 Flow Rate FiO2 11/09/21 16:00 87 30 68/43 (51) 62 Mechanical Ventilator 100.00 11/09/21 14:18 100 11/09/21 11:54 36.1 Capillary Refill : Less Than 3 Seconds I&O Intake and Output 11/09/21 00:00 Intake Total 580 ml Output Total 925 ml Balance -345 ml Intake Oral 0 ml IV Total 580 ml Output Urine Total 875 ml Gastric Drainage Total 50 ml Chest Tube Drainage Total 0 ml General: Other (intubated and sedated) Neck: Other (swelling and brusing now present in neck, no creptius) Lungs: Other (minimal breath sounds) Heart: Regular Rate Abdomen: Other (moderate distention) Extremities: Other (2-3+ pitting edema in all extremities) Results/Procedures Lab Laboratory Tests 11/09/21 00:05: White Blood Count 31.4*H, Red Blood Count 3.43L, Hemoglobin 9.7L, Hematocrit 33L , Mean Corpuscular Volume 97, Mean Corpuscular Hemoglobin 28, Mean Corpuscular Hemoglobin Concent 29L, Red Cell Distribution Width 17.8H, Platelet Count 567H, Mean Platelet Volume 11.3, Immature Granulocyte % (Auto) 13, Neutrophils (%) (Auto) 72, Lymphocytes (%) (Auto) 3L, Monocytes (%) (Auto) 10, Eosinophils (%) (Auto) 0, Basophils (%) (Auto) 1, Neutrophils # (Auto) 22.6H, Lymphocytes # (Auto) 1.0, Monocytes # (Auto) 3.1H, Eosinophils # (Auto) 0.1, Basophils # (Auto) 0.4H, Immature Granulocyte # (Auto) 4.2H, Neutrophils % (Manual) 74, Lymphocytes % (Manual) 5, Monocytes % (Manual) 8, Myelocytes % 5, Band Neutrophils 8, Nucleated Red Blood Cells 2, Clumped Platelets SLIGHT, Percent Immature Platelet Fraction , Polychromasia SLIGHT, Anisocytosis SLIGHT, Elliptocytes SLIGHT, Prothrombin Time 17.9H, INR Comment 1.4, Activated Partial Thromboplast Time 45H, Smear Scan 11/09/21 00:25: Blood Gas Puncture Site ARTLINE, Blood Gas Patient Temperature 36.8, Arterial Blood pH 6.93*L, Arterial Blood Partial Pressure CO2 128*H, Arterial Blood Partial Pressure O2 50L, Arterial Blood HCO3 26, Arterial Blood Total CO2 29.5, Arterial Blood Oxygen Saturation 75L, Arterial Blood Base Excess -6.2L, To Test ARTLINE, Blood Gas Ventilator Setting YES, Blood Gas Inspired Oxygen 100% 11/09/21 05:30: Sodium Level 137, Potassium Level 4.6, Chloride Level 106, Carbon Dioxide Level 20L, Anion Gap 11, Blood Urea Nitrogen 23H, Creatinine 1.77H, Estimat Glomerular Filtration Rate 45, BUN/Creatinine Ratio 13, Glucose Level 82, Lactic Acid Level 0.85, Calcium Level 8.1L, Corrected Calcium 9.7, Phosphorus Level 6.3H, Magnesium Level 2.1, Total Bilirubin 0.5, Aspartate Amino Transf (AST/SGOT) 33, Alanine Aminotransferase (ALT/SGPT) 8, Alkaline Phosphatase 121, Total Protein 5.6L, Albumin 2.0L, Triglycerides Level 412#H, Amylase Level 118 11/09/21 06:40: Blood Gas Puncture Site RT ARTLINE, Blood Gas Patient Temperature 37.2, Arterial Blood pH 7.05*L, Arterial Blood Partial Pressure CO2 83*H, Arterial Blood Partial Pressure O2 43L, Arterial Blood HCO3 22L, Arterial Blood Total CO2 24.0, Arterial Blood Oxygen Saturation 72L, Arterial Blood Base Excess -7.7L, To Test ART LINE, Blood Gas Ventilator Setting YES, Blood Gas Inspired Oxygen 30% 11/09/21 11:16: Glucometer 101 Microbiology 11/05/21 Blood Culture - Preliminary, Resulted No growth 10/25/21 Gram Stain - Final, Complete 10/25/21 Sputum Culture - Final, Complete Usual Mixed Pat Staphylococcus aureus Probable Klebsiella/Enterobact 10/14/21 Urine Culture - Final, Complete NO GROWTH Assessment/Plan Assessment/Plan (1) Acute respiratory failure due to COVID-19 Status: Acute Assessment & Plan: On admission- Continued dexamethasone. Remdesevir started per ICU. D dimer elevated, CTA negative for PE. Since that time had Actemra, completed remdesevir, had dexamethasone increased to 10 mg daily on day 5 of dexamethasone. Ultimately ended up requiring intubation on 10/18, after which had cardiac arrest. 1- worsening hypoxia in spite of ventilatory support, requiring 100% FiO2 and increasing PEEP, appreciate Maria Fernanda ICU recommendations. Discussed with patient's brother, for now they are continuing aggressive care, Surgery notified of need for trach and PEG. 10/30- Unfortunately has continued to worsen, continuing to increase PEEP and he has not improved, family wants to continue aggressive care at this time. 10/31- PEEP up to 16 and FiO2 remains at 100%, still having episodes of hypoxia, per family after more discussion, holding off on PEG and trach, but continuing aggressive care. 11/02- trying to diurese slightly and wean paralysis, discussed status with mother. 11/05: Intubated and Sedated, Having cuff leaks, possible trachea erosion, eICU managing 11/06: Intubated and Sedated, unable to tolerate off paralytics 11/07: FiO2 creeping up, unable to titrate, very poor prognosis 11/08: Spoke with family and patient was placed on mission control for possible transfer, discussed with family that he would not likely tolerate transfer or Trach/PEG given his fragility. Ethics committee consulted to make sure we have exhausted all options and patient has a grave prognosis 11/09: Patient made no code ON after he had an acute decompensation. Family to discussed goals of care. Discussed poor prognosis and likelihood of imminent due to worsening kidney function and severe hypoxia (unable to get saturations above 70%) despite manual bagging for over 6 hrs. (2) Pneumonia due to COVID-19 virus Status: Acute (3) Hypertension Status: Chronic Assessment & Plan: 11/05: Continue to monitor, on pressers (4) Liver mass, right lobe Status: Acute Assessment & Plan: Seen incidentally on chest CT, needs non-urgent CT liver protocol for follow up. (5) Deep vein thrombosis Status: Acute Assessment & Plan: Right peroneal, left femoral into calf veins, started on treatment dose enoxaparin 10/11, now on apixaban, may need transitioned back to enoxaparin a few days prior to trach/PEG if those are to occcur. Qualifiers: (6) Cardiorespiratory arrest Status: Acute Assessment & Plan: s/p cardiac arrest on 10/18 with multiple rounds of chest compression and ROSC x 2, after intubation. (7) Paroxysmal atrial fibrillation Status: Acute Assessment & Plan: 10/29/21 No further episodes since cardioversion, thought to be related to his arrest. Appreciate Cardiology recommendations, decreasing amiodarone today (weaning anyway, but decreasing further with some possible dropped beats) (8) Septic shock Status: Resolved (9) GI bleed Status: Acute Assessment & Plan: 11/06: Hgb trending down, been on anticoagulation for A fib and DVT, started on PPI gtts today (10) Scrotal swelling Status: Acute Assessment & Plan: 11/06: Elevate scrotum as tolerated ADARSH CLARK MD Nov 09, 2021 18:48
--- NOTE | 2021-11-14 21:45 | Physician Query Clarification ---
PQ-Present on Admission Admission/Discharge Admission Date: Oct 06, 2021 at 09:25 Discharge Date: Nov 09, 2021 at 16:55 ADARSH Treviño MD History& risk factors: 51 y/o male transferred here for Covid related pneumonia with secondary respiratory failure no evidence for secondary bacterial infection we will continue high flow oxygen and Decadron prognosis guarded, septic shock was documented in medical record. Clinical indicators: WBC-7.7, temp-37.0, pulse-100 on admission, WBC- 12.4, 22.7 H on 10/09, 10/13 Treatment:Remdesivir, Decadron, IV antibiotics, mechanical ventilation. Question: Septic shock was documented in cardiology progress notes, 10/18. Can you specify if this condition was present on admission? Please document a response in Progress Note or Discharge Summary. 1. Yes - Condition was present at the time of inpatient admission. 2. No - Condition was not present at the time of inpatient admission and it developed during the inpatient stay. 3. W - Provider is unable to clinically determine whether condition was present on admission or not. 4. Other [please specify] PHYSICIAN RESPONSE Condition was Present on Admit: Other, specify below Explanation of clincal finding I would send this to the admitting provider as I only took care of him for the last week. TY Please remember a lack of response to the above will prompt a phone page by [facility] staff. In responding to this query, please exercise your independent professional judgment. The purpose of this communication is to more accurately reflect the complexity of your patients condition. The fact that a question is asked does not imply that any particular answer is desired or expected. Thank you for your timely response to this clarification. Requestors name: [ ] Phone # [ ] THIS PHYSICIAN QUERY FORM IS A PERMANENT PART OF THE MEDICAL RECORD NETO MORALES Nov 14, 2021 21:45 ADARSH CLARK MD Nov 15, 2021 08:42
--- NOTE | 2021-11-18 20:48 | Physician Query Clarification ---
PQ-Present on Admission Admission/Discharge Admission Date: Oct 06, 2021 at 09:25 Discharge Date: Nov 09, 2021 at 16:55 ROBBY Davis MD History& risk factors: 51 y/o male transferred here for Covid related pneumonia with secondary respiratory failure no evidence for secondary bacterial infection we will continue high flow oxygen and Decadron prognosis guarded, septic shock was documented in medical record. Clinical indicators: WBC-7.7, temp-37.0, pulse-100 on admission, WBC- 12.4, 22.7 H on 10/09, 10/13 Treatment:Remdesivir, Decadron, IV antibiotics, mechanical ventilation. Question: Septic shock was documented in cardiology progress notes, 10/18. Can you specify if this condition was present on admission? Please document a response in Progress Note or Discharge Summary. 1. Yes - Condition was present at the time of inpatient admission. 2. No - Condition was not present at the time of inpatient admission and it developed during the inpatient stay. 3. W - Provider is unable to clinically determine whether condition was present on admission or not. 4. Other [please specify] PHYSICIAN RESPONSE Condition was Present on Admit: No Please remember a lack of response to the above will prompt a phone page by [facility] staff. In responding to this query, please exercise your independent professional judgment. The purpose of this communication is to more accurately reflect the complexity of your patients condition. The fact that a question is asked does not imply that any particular answer is desired or expected. Thank you for your timely response to this clarification. Requestors name: [ ] Phone # [ ] THIS PHYSICIAN QUERY FORM IS A PERMANENT PART OF THE MEDICAL RECORD CARMENNETO Nov 18, 2021 20:48 ROBBY THORPE MD Nov 21, 2021 07:35
== END 2021-11-09 16:55 | disposition expired | DRG 207 ==
LOC: EDUNIT# 07:25 → ER 07:28 → ICU 09:25
PROVIDERS: ADMIT Internal Medicine; ATTEND Family Medicine
PROC: XW033E5 Introduction of Remdesivir Anti-infective into Peripheral Vein, Percutaneous Approach, New Technology Group 5 (ICD-10-PCS; 2021-10-09)
PROC: 5A09357 Assistance with Respiratory Ventilation, Less than 24 Consecutive Hours, Continuous Positive Airway Pressure (ICD-10-PCS; 2021-10-11)
PROC: 03HY32Z Insertion of Monitoring Device into Upper Artery, Percutaneous Approach (ICD-10-PCS; principal; 2021-10-18)
PROC: 0W9930Z Drainage of Right Pleural Cavity with Drainage Device, Percutaneous Approach (ICD-10-PCS; 2021-10-18)
PROC: 02HV33Z Insertion of Infusion Device into Superior Vena Cava, Percutaneous Approach (ICD-10-PCS; 2021-10-18)
PROC: 5A12012 Performance of Cardiac Output, Single, Manual (ICD-10-PCS; 2021-10-18)
PROC: 5A1955Z Respiratory Ventilation, Greater than 96 Consecutive Hours (ICD-10-PCS; 2021-10-18)
PROC: 0BH17EZ Insertion of Endotracheal Airway into Trachea, Via Natural or Artificial Opening (ICD-10-PCS; 2021-10-18)
DX: U07.1 COVID-19 (principal); J12.82 Pneumonia due to coronavirus disease 2019; J80 Acute respiratory distress syndrome; J93.0 Spontaneous tension pneumothorax; A41.9 Sepsis, unspecified organism; R65.21 Severe sepsis with septic shock; J15.9 Unspecified bacterial pneumonia; I26.99 Other pulmonary embolism without acute cor pulmonale; D68.69 Other thrombophilia; I82.4Z2 Acute embolism and thrombosis of unspecified deep veins of left distal lower extremity; J93.82 Other air leak; K92.2 Gastrointestinal hemorrhage, unspecified; E78.00 Pure hypercholesterolemia, unspecified; I10 Essential (primary) hypertension; F41.9 Anxiety disorder, unspecified; F32.A Depression, unspecified; Z66 Do not resuscitate; R91.8 Other nonspecific abnormal finding of lung field; R73.9 Hyperglycemia, unspecified; J98.2 Interstitial emphysema; I46.9 Cardiac arrest, cause unspecified; F17.210 Nicotine dependence, cigarettes, uncomplicated; I95.9 Hypotension, unspecified; E87.6 Hypokalemia; E88.09 Other disorders of plasma-protein metabolism, not elsewhere classified; R14.0 Abdominal distension (gaseous); I48.0 Paroxysmal atrial fibrillation; E78.2 Mixed hyperlipidemia; T38.0X5A Adverse effect of glucocorticoids and synthetic analogues, initial encounter; Z73.0 Burn-out
CPT/HCPCS: 36415; 36600; 70450; 71045; 71250; 71275; 74018; 80048; 80053; 80076; 81000; 82150; 82533; 82805; 82947; 83605; 83735; 83880; 84100; 84132; 84145; 84478; 85007; 85025; 85027; 85379; 85610; 85730; 86141; 87040; 87070; 87077; 87081; 87088; 87186; 87205; 87636; 93005; 93308; 93970; 94002; 94003; 94640; 94660; 94760; 94799; 96361; 96374; 96375